=== PATIENT | male | born 1945 | race Caucasian/White ===

== ENCOUNTER 2016-11-19 19:09 | Inpatient (IN) | payer OTHER, MEDICARE ==
[~2016-11-19] VITALS: Ht 180.3 cm; Wt 79.9 kg
[~2016-11-19 19:09] MED LIST: CARV3.125 PO; ENOX80P SQ; FURO40TA PO; GLIP5TAB8 PO; HYDR10TA23 PO; OYST500T11 PO; PRAV40TA2 PO; WARF-18 PO
[2016-11-19 19:22] VITALS: PULSE 62; RESP 14; TEMP 98.6; O2SAT 99
[2016-11-19] MEDS ORDERED: LOSA25TA PO (19:22)
[2016-11-19] MEDS ORDERED: WARF-23 PO (19:22)
[2016-11-19] MEDS ORDERED: HYDR-3799 PO (19:22)
[2016-11-19 19:24] VITALS: BP 140/59; PULSE 73; RESP 14; TEMP 98.6; O2SAT 98
[2016-11-19] MEDS ORDERED: SODIUM CHLOR 0.9% 1000 ML INJ 1,000 ML IV SCH (19:34)
[2016-11-19] MEDS ORDERED: SODIUM CHLORIDE 0.9% FLUSH 10 ML FLUSH IV FLUSH PRN ×2 (19:45→23:30)
--- NOTE | 2016-11-19 19:45 | PD ---
HPI Chief Complaint: Pain: Acute or Chronic Time Seen by Provider: 19:19 Travel History International Travel<30 days: No Contact w/Intl Traveler<30days: No Traveled to known affect area: No History of Present Illness HPI Patient is a 71-year-old male presents emergency Department with low back pain states it was most severe pain he ever felt fairly resolved now. Patient states pain was approximately an hour prior to arrival. Denies any fever denies any vomiting. Does endorse some nausea and states that anything he eats goes right through him. Is followed at the [place] for chronic bladder problem and has a chronic indwelling White which has been in for nearly 30 days and is scheduled to be changed 3 days from now. States the pain was sharp no radiation , states he has chronic leg weakness but nothing acute. Denies any anesthesia in his legs and his legs. He has slight pain to the bilateral flanks. PFSH Past Medical History Hx Anticoagulant Therapy: Yes (WARFRAIN ) AAA: Yes (REPAIRED) Arthritis: No Asthma: No Atrial Fibrillation: Yes Autoimmune Disease: No Blood Disorders: No Anxiety: Yes Heart Rhythm Problems: Yes (HX OF A-FIB) Cancer: No Cardiac Catheterization: Yes (2 CARDIAC STENTS, 2 AORTA) Cardiovascular Problems: Yes (cad, stents, htn) High Cholesterol: Yes Chest Pain: Yes Congestive Heart Failure: Yes COPD: Yes Cerebrovascular Accident: No Coronary Artery Disease: Yes Diabetes: Yes Patient Takes Glucophage: No Diminished Hearing: No Endocrine: Yes Gastrointestinal Disorders: Yes (BLADDER STONES) GERD: No Genitourinary: Yes Hiatal Hernia: Yes Hypertension: Yes Immune Disorder: No Implanted Vascular Access Dvce: Yes Insomnia: No Kidney Stones: Yes Musculoskeletal: Yes (CHRONIC BACK PAIN) Neurologic: Yes Psychiatric: Yes Reproductive: No Respiratory: Yes (copd) Immunizations Current: Yes Migraines: No Myocardial Infarction: Yes Pancreatitis: Yes Renal Failure: Yes Seizures: No Sleep Apnea: Yes Thyroid Disease: No Ulcer: No Past Surgical History Abdominal Aneurysm Repair: Yes Abdominal Surgery: Yes (UMBILICAL HERNIA REPAIR) Body Medical Devices: STENTS Cardiac Surgery: Yes (STENTS) Coronary Stent: Yes (X2) Genitourinary Surgery: Yes Neurologic Surgery: No Oral Surgery: Yes (CYST REMOVED FROM THROAT) Thoracic Surgery: Yes (AAA REPAIR) Tonsillectomy: Yes Other Surgery: Yes Social History Alcohol Use: No Tobacco Use: Yes (1 1/2PD) Substance Use: Yes (marijuana ) Allergies-Medications (Allergen,Severity, Reaction): Coded Allergies: No Known Allergies (Verified , 11/19/16) Reported Meds & Prescriptions Reported Meds & Active Scripts Active Coreg (Carvedilol) 3.125 Mg Tab 3.125 Mg PO BID Reported Losartan (Losartan Potassium) 25 Mg Tab 25 Mg PO DAILY Hydralazine HCl 25 Mg Tablet 10 Mg PO TID Warfarin 5 Mg Tab 5 Mg PO Sun Warfarin 2.5 Mg Tab 2.5 Mg PO DAILY Pravastatin 40 Mg Tab 40 Mg PO DAILY Furosemide 40 Mg Tab 40 Mg PO DAILY Review of Systems Except as stated in HPI: all other systems reviewed are Neg Physical Exam Narrative GENERAL: Well Developed well-nourished, unkempt, bearded in no distress. SKIN: Focused skin assessment warm/dry. HEAD: Atraumatic. Normocephalic. EYES: Pupils equal and round. No scleral icterus. No injection or drainage. ENT: No nasal bleeding or discharge. Mucous membranes pink and moist. NECK: Trachea midline. No JVD. CARDIOVASCULAR: Regular rate and rhythm. No murmur appreciated. RESPIRATORY: No accessory muscle use. Clear to auscultation. Breath sounds equal bilaterally. GASTROINTESTINAL: Abdomen soft, non-tender, nondistended. Hepatic and splenic margins not palpable. No CVA tenderness. MUSCULOSKELETAL: No obvious deformities. No clubbing. No cyanosis. No edema. No midline CT or L-spine tenderness. NEUROLOGICAL: Awake and alert. No obvious cranial nerve deficits. Motor grossly within normal limits. Normal speech. PSYCHIATRIC: Appropriate mood and affect; insight and judgment normal. Data Data Last Documented VS Vital Signs Date Time Temp Pulse Resp B/P Pulse Ox O2 Delivery O2 Flow Rate FiO2 11/19/16 23:17 68 14 166/62 99 Room Air 11/19/16 19:24 98.6 Orders Complete Blood Count With Diff (11/19/16 19:34) Comprehensive Metabolic Panel (11/19/16 19:34) Prothrombin Time / Inr (Pt) (11/19/16 19:34) Act Partial Throm Time (Ptt) (11/19/16 19:34) Urinalysis - C+S If Indicated (11/19/16 19:34) Iv Access Insert/Monitor (11/19/16 19:34) Ecg Monitoring (11/19/16 19:34) Oximetry (11/19/16 19:34) Sodium Chlor 0.9% 1000 Ml Inj (Ns 1000 M (11/19/16 19:34) Sodium Chloride 0.9% Flush (Ns Flush) (11/19/16 19:45) Electrocardiogram (11/19/16 19:34) Troponin I (11/19/16 19:34) Urinary Catheter Management CHARAN.Q8H (11/19/16 19:53) Remove Urinary Catheter .ONCE (11/19/16 19:53) Urine Culture (11/19/16 19:51) Ceftriaxone Inj (Rocephin Inj) (11/19/16 21:00) Chest, Single Ap (11/19/16 ) Phytonadione (Mephyton) (11/19/16 21:30) Ct Abd/Pel W/O Iv Contrast (11/19/16 ) Ct Thorax/ Chest Wo Iv Contras (11/19/16 ) Morphine Inj (Morphine Inj) (11/19/16 23:00) Admit Order (Ed Use Only) (11/19/16 ) Labs Laboratory Tests Test 11/19/16 11/19/16 19:30 19:51 White Blood Count 9.5 TH/MM3 Red Blood Count 3.28 MIL/MM3 Hemoglobin 9.2 GM/DL Hematocrit 28.8 % Mean Corpuscular Volume 87.7 FL Mean Corpuscular Hemoglobin 28.0 PG Mean Corpuscular Hemoglobin 31.9 % Concent Red Cell Distribution Width 19.8 % Platelet Count 289 TH/MM3 Mean Platelet Volume 10.6 FL Neutrophils (%) (Auto) 69.8 % Lymphocytes (%) (Auto) 21.2 % Monocytes (%) (Auto) 5.6 % Eosinophils (%) (Auto) 1.9 % Basophils (%) (Auto) 1.5 % Neutrophils # (Auto) 6.7 TH/MM3 Lymphocytes # (Auto) 2.0 TH/MM3 Monocytes # (Auto) 0.5 TH/MM3 Eosinophils # (Auto) 0.2 TH/MM3 Basophils # (Auto) 0.1 TH/MM3 CBC Comment DIFF FINAL Differential Comment Prothrombin Time 115.1 SEC Prothromb Time International 9.4 RATIO Ratio Activated Partial 58.4 SEC Thromboplast Time Sodium Level 140 MEQ/L Potassium Level 5.3 MEQ/L Chloride Level 117 MEQ/L Carbon Dioxide Level 14.9 MEQ/L Anion Gap 8 MEQ/L Blood Urea Nitrogen 33 MG/DL Creatinine 2.00 MG/DL Estimat Glomerular Filtration 33 ML/MIN Rate Random Glucose 169 MG/DL Calcium Level 5.6 MG/DL Protein Corrected Calcium 5.9 MG/DL Total Bilirubin 0.3 MG/DL Aspartate Amino Transf 116 U/L (AST/SGOT) Alanine Aminotransferase 87 U/L (ALT/SGPT) Alkaline Phosphatase 231 U/L Troponin I 0.21 NG/ML Total Protein 6.3 GM/DL Albumin 2.3 GM/DL Urine Color LIGHT-YELLOW Urine Turbidity HAZY Urine pH 5.5 Urine Specific [place] 1.010 Urine Protein 100 mg/dL Urine Glucose (UA) NEG mg/dL Urine Ketones NEG mg/dL Urine Occult Blood SMALL Urine Nitrite POS Urine Bilirubin NEG Urine Urobilinogen LESS THAN 2.0 MG/DL Urine Leukocyte Esterase LARGE Urine RBC 2 /hpf Urine WBC 35 /hpf Urine WBC Clumps RARE Urine Squamous Epithelial <1 /hpf Cells Urine Amorphous Sediment RARE Urine Bacteria MANY /hpf Microscopic Urinalysis Comment CULTURE INDICATED MDM Medical Decision Making Medical Screen Exam Complete: Yes Emergency Medical Condition: Yes Interpretation(s) EKG shows atrial fibrillation with an overall rate of 72, left axis deviation and normal R-wave progression. T-wave inversions in V4 V5 which are new from previous EKG. No concerning ST segment changes. This an abnormal EKG. Differential Diagnosis Urinary tract infection, comp. UTI, elevated INR, chest pain, ACS, AMI, aortic aneurysm. Narrative Course Patient 71-year-old male with pain in bilateral flanks radiating anterior to the epigastric region. Has a chronic indwelling White. Most likely cause of his symptoms or urinary tract infection and indeed the patient does have UTI with nitrate positive urine. The White catheter was exchanged. Patient has multiple electrolyte abnormalities and a minimal elevation of creatinine from his baseline. Patient does have a history of aortic stenting from the arch to the bifurcation. With his INR of 9 he was given a dose of vitamin K orally and noncontrast CT scan was performed to rule out hematoma of aortic origin. Think the likelihood of this is fairly low but certainly needs exclusion. Given the low likelihood IV contrast was held. Patient's EKG is unchanged from previous. His troponin is elevated to 0.3. I discussed with case with patient and Dr. Valdes recommended for admission to the hospital for workup of his elevated troponin, elevated INR and treatment of discomfort. UTI. The patient was given Rocephin and calcium in emergency department. Diagnosis Primary Impression: NSTEMI (non-ST elevated myocardial infarction) Additional Impressions: Elevated INR UTI (urinary tract infection) Admitting Information Admitting Physician Requests: Admit Condition: Stable Storm Uribe MD Nov 19, 2016 19:45
[2016-11-19 20:34] LABS: AUTOMATED NEUTROPHIL # 6.7 TH/MM3 (1.8-7.7); BASOPHIL # 0.1 TH/MM3 (0-0.2); BASOPHIL % 1.5 % (0.0-2.0); EOSINOPHIL # 0.2 TH/MM3 (0-0.4); EOSINOPHIL % 1.9 % (0.0-4.0); HEMATOCRIT 28.8 % (39.0-51.0); HEMO FLAGS DIFF FINAL; LYMPH % 21.2 % (9.0-44.0); MEAN CELL VOLUME 87.7 FL (80.0-100.0); MEAN CORPUSCULAR HGB CONC 31.9 % (32.0-36.0); MONO % 5.6 % (0.0-8.0); NEUT % 69.8 % (16.0-70.0); PLATELET COUNT 289 TH/MM3 (150-450); RED BLOOD COUNT 3.28 MIL/MM3 (4.50-5.90); RED CELL DISTRIBUTION WIDTH 19.8 % (11.6-17.2); WHITE BLOOD COUNT 9.5 TH/MM3 (4.0-11.0)
[2016-11-19 20:39] LABS: BACTERIA, URINE MANY /hpf; BLOOD, URINE SMALL (NEG); COMMENT (UR) CULTURE INDICATED; CULTURE IF INDICATED CULTURE INDICATED; GLUCOSE,URINE NEG (NEG); KETONE, URINE NEG (NEG); PH, URINE 5.5 (5.0-8.5); SQUAMOUS EPITHELIAL CELL URINE <1 /hpf (0-5); URINE COLOR LIGHT-YELLOW (YELLW/STRAW)
[2016-11-19 20:41] LABS: NITRITE,URINE POS (NEG)
[2016-11-19 20:45] LABS: APTT (PATIENT) 58.4 SEC (24.3-30.1); PROTHROMBIN TIME - PATIENT 115.1 SEC (9.8-11.6)
[2016-11-19] MEDS ORDERED: cefTRIAXone INJ 1,000 MG in SODIUM CHLORIDE 0.9% INJ 100 ML IV ONE (21:00)
[2016-11-19 21:02] LABS: BICARBONATE 14.9 MEQ/L (21.0-32.0); TOTAL BILIRUBIN ADULT 0.3 MG/DL (0.2-1.0)
[2016-11-19 21:04] LABS: POTASSIUM 5.3 MEQ/L (3.5-5.1)
[2016-11-19 21:10] VITALS: BP 158/60; PULSE 70; RESP 16; O2SAT 99
[2016-11-19 21:19] LABS: CALCIUM-PROTEIN CORRECTED 5.9 MG/DL (8.5-10.1)
[2016-11-19 21:22] LABS: INTERNATIONAL NORMALIZED RATIO 9.4 RATIO
[2016-11-19] MEDS ORDERED: PHYTONADIONE 5 MG TAB PO ONE (21:30)
[2016-11-19 22:00] VITALS: BP 170/62; PULSE 74; RESP 12; O2SAT 100
[2016-11-19] MEDS ORDERED: MORPHINE SULFATE 4 MG/ML INJ IV PUSH ONE (23:00)
--- NOTE | 2016-11-19 23:04 | RADRPT ---
EXAM DATE/TIME: 11/19/2016 22:06 [facility] COMPARISON: CHEST SINGLE AP, February 02, 2016, 14:09. INDICATIONS : Middle to low back pain. MEDICAL HISTORY : A-Fib SURGICAL HISTORY : Descending aorta graft stent ENCOUNTER: Initial ACUITY: 1 day PAIN SCORE: 0/10 LOCATION: Bilateral chest FINDINGS: Single AP view of the chest. Aortic stent in place. Lungs are clear. Cardiomediastinal silhouette wit hin normal limits. No evidence of pleural effusion or pneumothorax. CONCLUSION: No acute cardiopulmonary disease identified. Jorden Mckeon MD on November 19, 2016 at 23:03 Board Certified Radiologist. This report was verified electronically.
--- NOTE | 2016-11-19 23:11 | RADRPT ---
EXAM DATE/TIME: 11/19/2016 22:45 [facility] COMPARISON: CT ABDOMEN & PELVIS W/O CONTRAST, February 02, 2016, 16:20. INDICATIONS : Back pain; rule out intraabdominal hematoma. ORAL CONTRAST: No oral contrast ingested. RADIATION DOSE: 13.39 CTDIvol (mGy) ; Combined studies - Thorax/Abdomen/Pelvis MEDICAL HISTORY : Chronic obstructive pulmonary disease. Congestive heart failure. Renal failure, chronic.Hypertension, AAA SURGICAL HISTORY : Abdominal aortic aneurysm repair. Umbilical hernia repair. ENCOUNTER: Initial ACUITY: 1 day PAIN SCALE: 7/10 LOCATION: abdomen TECHNIQUE: Volumetric scanning of the abdomen and pelvis was performed. Using automated exposure control and ad justment of the mA and/or kV according to patient size, radiation dose was kept as low as reasonably achievable to obtain optimal diagnostic quality images. DICOM format image data is available electro nically for review and comparison. FINDINGS: LOWER LUNGS: The visualized lower lungs are clear. LIVER: Homogeneous density without lesion for noncontrast technique. There is no dilation of the biliary tr ee. No calcified gallstones. SPLEEN: Normal size without lesion. PANCREAS: Extensive pancreatic calcifications, stable from prior. KIDNEYS: Multiple bilateral varying size cysts measuring up to 4.1 cm similar to prior.. A hyperdense cyst up per pole left kidney measuring 1.7 cm similar to prior. ADRENAL GLANDS: Within normal limits. VASCULAR: Stent graft in abdominal aortic aneurysm and proximal iliac vessels, renal arteries, celiac, and SMA. This is incompletely evaluated on noncontrast study, but morphologically similar to prior. BOWEL/MESENTERY: No disproportionate loops of small or large bowel. Loops of small bowel measure up to 3.2 cm, simila r to prior. The appendix is identified anteriorly in the right lower quadrant and measures 8 mm. Th ere is some hyperdensity within the distal lumen, possible calcification. The hyperdense lumen is un changed from prior examination in January 2016. ABDOMINAL WALL: Multiple hemoclips about the umbilical hernia, stable in configuration. RETROPERITONEUM: There is no lymphadenopathy. No evidence of retroperitoneal fluid. BLADDER: White catheter in place. Stable 1.7 cm densely calcified stone within the posterior midline lumen, s table from prior. REPRODUCTIVE: The prostate is normal size. INGUINAL: There is no lymphadenopathy or hernia. MUSCULOSKELETAL: Diffuse osteopenia. CONCLUSION: 1. No evidence of intra-abdominal retroperitoneal fluid/hematoma. 2. Multiple findings, described above, stable from prior CT, in coating pancreatic calcification, bernice dder stone, renal cysts, hyperdense configuration to the appendix, and vascular stents. Blaze Marshall MD on November 19, 2016 at 22:59 Board Certified Radiologist. This report was verified electronically.
--- NOTE | 2016-11-19 23:16 | RADRPT ---
EXAM DATE/TIME: 11/19/2016 22:45 [facility] COMPARISON: CT PULMONARY ANGIOGRAM, July 30, 2013, 0:58. INDICATIONS : Back pain; rule out intrathoracic hematoma. RADIATION DOSE: 13.39 CTDIvol (mGy) ; Combined studies - Thorax/Abdomen/Pelvis MEDICAL HISTORY : Chronic obstructive pulmonary disease. Congestive heart failure. Renal failure, chronic. Hypertension , AAA SURGICAL HISTORY : Abdominal aortic aneurysm repair. Umbilical hernia repair. ENCOUNTER: Initial ACUITY: 1 day PAIN SCALE: 7/10 LOCATION: chest TECHNIQUE: Volumetric scanning of the chest was performed. Using automated exposure control and adjustment of t he mA and/or kV according to patient size, radiation dose was kept as low as reasonably achievable to obtain optimal diagnostic quality images. DICOM format image data is available electronically for r eview and comparison. Follow-up recommendations for detected pulmonary nodules are based at a minimum on nodule size and pa tient risk factors according to Fleischner Society Guidelines. FINDINGS: LUNGS: Moderate severity emphysema similar to prior examination in 2014. No nodular densities or infiltrate s. PLEURAE: There is no pleural thickening or pleural effusion. MEDIASTINUM: Heart is normal in size. Coronary artery calcifications. No evidence of mediastinal adenopathy. En dostent in the thoracic aorta; configuration is similar to prior and 2014. AXILLAE: Within normal limits. No lymphadenopathy. MUSCULOSKELETAL: Diffuse osteopenia. No fracture seen. MISCELLANEOUS: No evidence of intrathoracic hematoma. CONCLUSION: No acute findings in the chest. Emphysema and aortic endostent, similar to prior CT in 2014. Blaze Marshall MD on November 19, 2016 at 23:09 Board Certified Radiologist. This report was verified electronically.
[2016-11-19 23:17] VITALS: BP 166/62; PULSE 68; RESP 14; O2SAT 99
[2016-11-19] MEDS ORDERED: BISACODYL 10 MG SUPP RECTAL PRN (23:30)
[2016-11-19] MEDS ORDERED: CALCIUM GLUCONATE INJ 2 GM in DEXTROSE 5% IN WATER 100ML INJ 100 ML IV ONE ×2 (23:30)
[2016-11-19] MEDS ORDERED: MAGNESIUM HYDROXIDE SUSP 30 ML CUP PO PRN (23:30)
[2016-11-19] MEDS ORDERED: MORPHINE SULFATE 4 MG/ML INJ IV PRN (23:30)
[2016-11-19] MEDS ORDERED: SODIUM CHLOR 0.9% 1000 ML INJ 1,000 ML IV ONE (23:30)
[2016-11-19] MEDS ORDERED: NITROGLYCERIN 2% OINT 1 GM PACKET TOPICAL PRN (23:30)
[2016-11-19] MEDS ORDERED: LACTULOSE SYRUP 20 GM/30 ML CUP PO PRN (23:30)
[2016-11-19] MEDS ORDERED: SENNOSIDES 8.6 MG TAB PO PRN (23:30)
[2016-11-19] MEDS ORDERED: ONDANSETRON HCL 4 MG/2 ML VIAL IVP PRN (23:30)
[2016-11-19] MEDS ORDERED: ACETAMINOPHEN 325 MG TAB PO PRN (23:30)
--- NOTE | 2016-11-19 23:33 | HHI.HP ---
[facility] Admission Diagnosis Complicated UTI, Chest pain, Elevated INR Diagnoses: (1) NSTEMI (non-ST elevated myocardial infarction) Diagnosis: Principal (2) CHF (congestive heart failure) Diagnosis: Principal (3) UTI (urinary tract infection) Diagnosis: Principal (4) Supratherapeutic INR Diagnosis: Principal (5) Hypocalcemia Diagnosis: Principal (6) Hyperkalemia Diagnosis: Principal (7) HTN (hypertension) Diagnosis: Principal (8) DM (diabetes mellitus) Diagnosis: Principal (9) Tobacco abuse Diagnosis: Principal Travel History International Travel<30 Days: No Contact w/Intl Traveler <30 Da: No Traveled to Known Affected Are: No History of Present Illness This is a 71-year-old male with PMH of HTN, Hyperlipidemia, A. fib on Coumadin, Anxiety, COPD, Indwelling White, CHF (Echo 02/03/16 w/ EF 55-60%), AAA Repair, CKD and Chronic Back Pain who presented to the ER with complaints of bilateral flank pain with radiation to anterior abdomen starting earlier today. States pain is chronic however has become severe in the last 1 day. Reports associated nausea, but no vomiting, diarrhea or fever. On arrival, BP 140 or 59 , HR 73, O2 sat 98% on RA, Afebrile. CBC essentially at baseline. K+ 5.3. Creatinine 2.0, previously 1.63 and 02/10/16. Calcium 5.6. Troponin 0.21. INR 9.4. UA positive for UTI. CT Abd/Pelvis w/ no evidence of intra-abdominal retroperitoneal fluid or hematoma, previous vascular stents noted. S/p Ca, Vit K and Rocephin IV in ER. Review of Systems Except as stated in HPI: all other systems reviewed are Neg ROS: 14 point review of systems otherwise negative. Past Family Social History Past Medical History PMH: HTN, Hyperlipidemia, A. fib on Coumadin, Anxiety, COPD, Indwelling White, CHF (Echo 02/03/16 w/ EF 55-60%), AAA Repair, CKD and Chronic Back Pain Past Surgical History PAST SURGICAL HISTORY: Hernia Repair, Cardiac Stent, AAA Repair, Tonsillectomy Allergies: Coded Allergies: No Known Allergies (Verified , 11/19/16) Physical Exam Vital Signs Vital Signs Date Time Temp Pulse Resp B/P Pulse Ox O2 Delivery O2 Flow Rate FiO2 11/19/16 23:17 68 14 166/62 99 Room Air 11/19/16 22:00 74 12 170/62 100 Room Air 11/19/16 21:10 70 16 158/60 99 Room Air 11/19/16 19:24 98.6 73 14 140/59 98 Room Air 11/19/16 19:22 98.6 62 14 99 Physical Exam PE: GENERAL: Elderly white male in no acute distress. HEENT: PERRLA, EOMI. No scleral icterus or conjunctival pallor. No lid lag or facial droop. CARDIOVASCULAR: Regular rate and rhythm. No obvious murmurs to auscultation. No chest tenderness to palpation. RESPIRATORY: No obvious rhonchi or wheezing. Clear to auscultation. Breath sounds equal bilaterally. GASTROINTESTINAL: Abdomen soft, non-tender, nondistended. BS normal. MUSCULOSKELETAL: Extremities without clubbing, cyanosis, or edema. No obvious deformities. NEUROLOGICAL: Awake, alert and oriented x4. No focal neurologic deficits. Moving both upper and lower extremities spontaneously. Laboratory Laboratory Tests Test 11/19/16 11/19/16 19:30 19:51 White Blood Count 9.5 Red Blood Count 3.28 Hemoglobin 9.2 Hematocrit 28.8 Mean Corpuscular Volume 87.7 Mean Corpuscular Hemoglobin 28.0 Mean Corpuscular Hemoglobin 31.9 Concent Red Cell Distribution Width 19.8 Platelet Count 289 Mean Platelet Volume 10.6 Neutrophils (%) (Auto) 69.8 Lymphocytes (%) (Auto) 21.2 Monocytes (%) (Auto) 5.6 Eosinophils (%) (Auto) 1.9 Basophils (%) (Auto) 1.5 Neutrophils # (Auto) 6.7 Lymphocytes # (Auto) 2.0 Monocytes # (Auto) 0.5 Eosinophils # (Auto) 0.2 Basophils # (Auto) 0.1 CBC Comment DIFF FINAL Differential Comment Prothrombin Time 115.1 Prothromb Time International 9.4 Ratio Activated Partial 58.4 Thromboplast Time Sodium Level 140 Potassium Level 5.3 Chloride Level 117 Carbon Dioxide Level 14.9 Anion Gap 8 Blood Urea Nitrogen 33 Creatinine 2.00 Estimat Glomerular Filtration 33 Rate Random Glucose 169 Calcium Level 5.6 Protein Corrected Calcium 5.9 Total Bilirubin 0.3 Aspartate Amino Transf 116 (AST/SGOT) Alanine Aminotransferase 87 (ALT/SGPT) Alkaline Phosphatase 231 Troponin I 0.21 Total Protein 6.3 Albumin 2.3 Urine Color LIGHT-YELLOW Urine Turbidity HAZY Urine pH 5.5 Urine Specific [place] 1.010 Urine Protein 100 Urine Glucose (UA) NEG Urine Ketones NEG Urine Occult Blood SMALL Urine Nitrite POS Urine Bilirubin NEG Urine Urobilinogen LESS THAN 2.0 Urine Leukocyte Esterase LARGE Urine RBC 2 Urine WBC 35 Urine WBC Clumps RARE Urine Squamous Epithelial <1 Cells Urine Amorphous Sediment RARE Urine Bacteria MANY Microscopic Urinalysis Comment CULTURE INDICATED Date/Time Procedure Status Source Growth 11/19/16 19:51 Urine Culture Received Urine Random Urine Pending Result Diagram: 11/19/16192911/19/161929 Assessment and Plan Problem List: (1) NSTEMI (non-ST elevated myocardial infarction) ICD Code: I21.4 Status: Acute (2) CHF (congestive heart failure) ICD Code: I50.9 Status: Acute (3) Hyperkalemia ICD Code: E87.5 Status: Acute (4) Hypocalcemia ICD Code: E83.51 Status: Acute (5) Supratherapeutic INR ICD Code: R79.1 Status: Acute (6) UTI (urinary tract infection) ICD Code: N39.0 Status: Acute (7) HTN (hypertension) ICD Code: I10 Status: Chronic (8) DM (diabetes mellitus) ICD Code: E11.9 Status: Chronic (9) Tobacco abuse ICD Code: Z72.0 Status: Acute Assessment and Plan A/P: 1. NSTEMI: acute onset of flank pain, denies discrete chest pain, Trop 0.21, EKG w/ no acute ischemia. Currently pain free. Hold ASA in light of supratherapeutic INR, resume home Statin/B-yobani. Check serial cardiac enzymes, consult Cardiology for further recommendations. NTG/Morphine prn. 2. CHF: Chronic. Diastolic. Echo 02/03/16 w/ EF 55-60%. CXR negative, CT Chest w/ no acute findings, images reviewed by me. No fluid overload. Hold Lasix for the moment in light of worsening renal function. Monitor I/O. 3. Hyperkalemia: K+ 5.3, no acute EKG changes. Repeat labs in am. 4. Hypocalcemia: Ca 5.6, Corrected 5.9, s/p replacement in ER, will recheck and replace as needed. 5. Supratherapeutic INR: on Coumadin for h/o A-fib, INR 9.4, no active bleeding noted, CT Chest/Abd/Pelvis negative for bleeding, images reviewed by me. S/p Vit K in ER, hold Coumadin, repeat INR in am. 6. UTI: U/a w/ UTI, s/p Rocephin in ER, will continue w/ IV Abx, caution w/ INR 7. HTN: BP 150-160's, will monitor, resume home medications. 8. DM: Sliding scale w/ Accu-Cheks. Not on home meds. Check Hgb A1c. Last A1c 9.4 on 01/08/11. 9. DVT Prophylaxis: Pharmacologic contraindication in light of elevated INR. 10. Social work for d/c planning as needed. 11. Case discussed w/ ER physician. Physician Certification 2 Midnight Certification Type: Admission for Inpatient Services Order for Inpatient Services The services are ordered in accordance with Medicare regulations or non- Medicare payer requirements, as applicable. In the case of services not specified as inpatient-only, they are appropriately provided as inpatient services in accordance with the 2-midnight benchmark. Estimated LOS (days): 2 days is the estimated time the patient will need to remain in the hospital, assuming treatment plan goals are met and no additional complications. Post-Hospital Plan: Not yet determined Angela Maravilla MD Nov 19, 2016 23:33
[2016-11-20] VITALS (24 sets, daily range): BP systolic 105–131; BP diastolic 47–69; PULSE 50–76; RESP 16–18; TEMP 96.3–98.3; O2SAT 95–99
[2016-11-20] MEDS: ACETAMINOPHEN/HYDROcodone 325 MG/5 MG TAB PO PRN ×3 (03:29→20:59)
[2016-11-20 04:13] LABS: AUTOMATED NEUTROPHIL # 6.1 TH/MM3 (1.8-7.7); BASOPHIL # 0.1 TH/MM3 (0-0.2); BASOPHIL % 1.2 % (0.0-2.0); EOSINOPHIL # 0.1 TH/MM3 (0-0.4); EOSINOPHIL % 1.6 % (0.0-4.0); HEMATOCRIT 25.5 % (39.0-51.0); HEMO FLAGS DIFF FINAL; LYMPH % 23.1 % (9.0-44.0); LYMPHOCYTE # 2.1 TH/MM3 (1.0-4.8); MEAN CELL VOLUME 87.5 FL (80.0-100.0); MONO % 5.8 % (0.0-8.0); NEUT % 68.3 % (16.0-70.0); PLATELET COUNT 196 TH/MM3 (150-450); RED BLOOD COUNT 2.91 MIL/MM3 (4.50-5.90)
[2016-11-20 04:41] LABS: PROTHROMBIN TIME - PATIENT 82.9 SEC (9.8-11.6)
[2016-11-20 04:43] LABS: INTERNATIONAL NORMALIZED RATIO 6.9 RATIO
[2016-11-20 04:48] LABS: TOTAL BILIRUBIN ADULT 0.2 MG/DL (0.2-1.0)
[2016-11-20 04:53] LABS: CALCIUM-PROTEIN CORRECTED 6.5 MG/DL (8.5-10.1)
[2016-11-20 04:58] LABS: CALCIUM-PROTEIN CORRECTED 6.5 MG/DL (8.5-10.1)
[2016-11-20] MEDS ORDERED: PNEUMOCOCCAL POLYVALENT INJ 25 MCG/0.5 ML SYR IM ONE (09:00)
[2016-11-20] MEDS ORDERED: NS + KCL 20 MEQ INJ 1,000 ML IV SCH (09:15)
[2016-11-20] MEDS ORDERED: PHYTONADIONE 10 MG/ML VIAL SQ ONE (09:15)
--- NOTE | 2016-11-20 09:41 | HHI.PR ---
Subjective Remarks Follow up NSTEMI, electrolyte abnormalities. Patient denies chest pain, dyspnea. Cough productive of phlegm. Has had abdominal and back pain, but it resolved this morning. Objective Vitals Vital Signs Date Time Temp Pulse Resp B/P Pulse Ox O2 Delivery O2 Flow Rate FiO2 11/20/16 08:00 66 11/20/16 07:00 98.0 63 18 119/66 99 11/20/16 07:00 58 11/20/16 06:00 65 11/20/16 05:00 69 11/20/16 04:00 66 11/20/16 03:00 62 11/20/16 03:00 97.5 72 18 131/59 97 11/20/16 02:00 68 11/20/16 01:19 96.3 62 16 118/69 99 11/19/16 23:17 68 14 166/62 99 Room Air 11/19/16 22:00 74 12 170/62 100 Room Air 11/19/16 21:10 70 16 158/60 99 Room Air 11/19/16 19:24 98.6 73 14 140/59 98 Room Air 11/19/16 19:22 98.6 62 14 99 I/O 11/19/16 11/19/16 11/19/16 11/20/16 11/20/16 11/20/16 06:59 14:59 22:59 06:59 14:59 22:59 Intake Total 240 ml Output Total 790 ml Balance -550 ml Intake Oral 240 ml Output Urine Total 790 ml Result Diagram: 11/20/16 0346 11/20/16 0346 Imaging Last Impressions Chest X-Ray 11/19/16 0000 Signed Impressions: Service Date/Time: Saturday, November 19, 2016 22:06 - CONCLUSION: No acute cardiopulmonary disease identified. Jorden Mckeon MD Chest CT 11/19/16 0000 Signed Impressions: Service Date/Time: Saturday, November 19, 2016 22:45 - CONCLUSION: No acute findings in the chest. Emphysema and aortic endostent, similar to prior CT in 2014. Blaze Marshall MD Abdomen/Pelvis CT 11/19/16 0000 Signed Impressions: Service Date/Time: Saturday, November 19, 2016 22:45 - CONCLUSION: 1. No evidence of intra-abdominal retroperitoneal fluid/hematoma. 2. Multiple findings, described above, stable from prior CT, in coating pancreatic calcification, bladder stone, renal cysts, hyperdense configuration to the appendix, and vascular stents. Blaze Marshall MD Objective Remarks General: Elderly male in no acute distress. Heart: Regular rate and rhythm. No murmur. Lungs: Clear to auscultation bilaterally. No wheezes, rales, or rhonchi. Breathing is nonlabored. Abdomen: Soft, nontender, nondistended. Extremities: Trace bilateral lower extremity edema. Psych: Alert and oriented. Procedures None Urinary Catheter: Yes Assessment to: Continue White insert reason: Measure Accurate Output Vascular Central Line Catheter: No A/P Problem List: (1) NSTEMI (non-ST elevated myocardial infarction) ICD Code: I21.4 Status: Acute (2) CHF (congestive heart failure) ICD Code: I50.9 Status: Chronic (3) Hyperkalemia ICD Code: E87.5 Status: Resolved (4) Hypocalcemia ICD Code: E83.51 Status: Acute (5) Supratherapeutic INR ICD Code: R79.1 Status: Acute (6) UTI (urinary tract infection) ICD Code: N39.0 Status: Acute (7) HTN (hypertension) ICD Code: I10 Status: Chronic (8) DM (diabetes mellitus) ICD Code: E11.9 Status: Chronic (9) Tobacco abuse ICD Code: Z72.0 Status: Chronic Assessment and Plan 1. NSTEMI: Troponin mildly elevated. Cardiology consult is pending. Nitroglycerin, morphine as needed. Monitor on telemetry. 2. Chronic diastolic CHF: Caution with IV fluids. 3. Hypokalemia: Potassium was elevated on presentation to ER, but is now low. Supplement. 4. Hypocalcemia: Supplement calcium. 5. Supratherapeutic INR: Somewhat improved following administration of vitamin K in the ER. We'll give another dose of vitamin K and monitor INR. No apparent active bleeding at this time. 6. UTI: Continue antibiotics. 7. Hypertension: Continue medications. 8. Diabetes mellitus: Monitor Accu-Cheks and cover with sliding scale insulin. A1c pending. 9. Acute kidney injury superimposed on chronic kidney disease stage III: Consult nephrology. Gentle IV fluid hydration. Monitor labs. 10. DVT prophylaxis: INR is supratherapeutic. Coumadin is on hold. 11. Elevated LFTs: Check hepatitis panel. Problem Qualifiers (1) CHF (congestive heart failure): Ming Claire MD Nov 20, 2016 09:41
[2016-11-20] MEDS: PRAVASTATIN SOD 40 MG TAB PO SCH (09:55)
[2016-11-20] MEDS: hydrALAZINE HCL 10 MG TAB PO SCH ×3 (09:55→17:54)
[2016-11-20] MEDS: DOCUSATE SODIUM 50 MG/SENNA 8.6 MG TAB PO SCH ×2 (09:56→21:00)
[2016-11-20] MEDS: CARVEDILOL 3.125 MG TAB PO SCH ×2 (09:56→20:59)
[2016-11-20] MEDS: SODIUM CHLORIDE 0.9% FLUSH 10 ML FLUSH IV FLUSH SCH ×2 (09:58→21:00)
[2016-11-20] MEDS: CALCIUM/VITAMIN D 250 MG/125 U TAB PO SCH ×2 (10:07→20:59)
--- NOTE | 2016-11-20 11:18 | PD.CONS ---
[facility] Service Nephrology Consult Requested By Dr. Claire Reason for Consult ASUNCION on CKD Primary Care Physician [facility] History of Present Illness This is a 71 y/o male patient with extensive past medical history listed below that includes HTN, diet controlled DM II, A fib on Coumadin, COPD active smoking , hyperlipidemia, and chronic diastolic heart failyre. He came to ER for abdominal pain, flank pain, that radiates to front of abdomen. He described it as gas pains, resolved today. He has indwelling sands for the past 5 years that is changed every 30 days. He follows at [facility], states he has "an abnormality" that requires sands catheter. On arrival his creatinine was 2.0, improved to 1.85 today. His K was elevated at 5.3 but is 3.0 today. After discussion the patient denies use of NSAIDs, but reports frequent diarrhea on a daily basis that is upwards of 10 times per day. He is not in distress today. No edema is noted. He is also hypocalcemic today, and INR was 9.4 on arrival. He is anemic with Hb 8.2. He is a full code. We were consulted for renal management. ( Ebony Swenson) Review of Systems Constitutional: COMPLAINS OF: Fatigue, DENIES: Fever Cardiovascular: DENIES: Chest pain, Lower Extremity Edema Gastrointestinal: COMPLAINS OF: Abdominal pain, Diarrhea, DENIES: Black stools , Bloody stools, Nausea, Vomiting Genitourinary: DENIES: Hematuria Musculoskeletal: DENIES: Joint pain (Ebony Swenson) Past Family Social History Allergies: Coded Allergies: No Known Allergies (Verified , 11/19/16) Past Medical History CKD 3 per records, with creatinine ranging between 1.5-1.7, GFR in 40s DM II, diet controlled HTN Hyperlipidemia A. fib on Coumadin Anxiety COPD Indwelling Sands for unknown reasons CHF (Echo 02/03/16 w/ EF 55-60%) Chronic Back Pain Past Surgical History AAA repair hernia repair, umbilical PCI with stent placement tonsillectomy Reported Medications Coreg (Carvedilol) 3.125 Mg Tab 3.125 Mg PO BID Losartan (Losartan Potassium) 25 Mg Tab 25 Mg PO DAILY Hydralazine HCl 25 Mg Tablet 10 Mg PO TID Warfarin 5 Mg Tab 5 Mg PO Sun Warfarin 2.5 Mg Tab 2.5 Mg PO DAILY Pravastatin 40 Mg Tab 40 Mg PO DAILY Furosemide 40 Mg Tab 40 Mg PO DAILY Active Ordered Medications Current Medications Medications (Trade) Dose Ordered Sig/Ana Route Start Time Stop Time Status Last Admin (NS Flush) 2 ml UNSCH PRN IV FLUSH 11/19/16 23:30 (NS Flush) 2 ml BID IV FLUSH 11/20/16 09:00 11/20/16 09:58 (Zofran Inj) 4 mg Q6H PRN IVP 11/19/16 23:30 (Tylenol) 650 mg Q6H PRN PO 11/19/16 23:30 ([place] 5-325 Mg) 1 tab Q4H PRN PO 11/19/16 23:30 11/20/16 03:29 (Morphine Inj) 2 mg Q3H PRN IV 11/19/16 23:30 11/20/16 00:14 (Valerie-Colace) 1 tab BID PO 11/20/16 09:00 11/20/16 09:56 (Milk Of Magnesia Liq) 30 ml Q12H PRN PO 11/19/16 23:30 (Senokot) 17.2 mg Q12H PRN PO 11/19/16 23:30 (Dulcolax Supp) 10 mg DAILY PRN RECTAL 11/19/16 23:30 Lactulose 30 ml 30 ml DAILY PRN PO 11/19/16 23:30 (Rocephin Inj/NS Inj) 100 ml @ 200 mls/hr Q24H IV 11/20/16 21:00 (Nitroglycerin 2% Oint) 0.5 inch Q6HR PRN TOPICAL 11/19/16 23:30 (Coreg) 3.125 mg BID PO 11/20/16 09:00 11/20/16 09:56 (Apresoline) 10 mg TID PO 11/20/16 09:00 11/20/16 09:55 Pravastatin Sodium 40 mg 40 mg DAILY PO 11/20/16 09:00 11/20/16 09:55 (NS + KCl 20 Meq Inj) 1,000 ml @ 42 mls/hr [id number] IV 11/20/16 09:15 11/20/16 09:56 (Oscal-D 250-125) 250 mg Q12HR PO 11/20/16 09:15 11/20/16 10:07 Family History no hx of renal disorders Social History smokes 1/5 PPD x 50 years Former occasional ETOH [facility] uses walker to ambulate retired from [employer] full code (Ebony Swenson) Physical Exam Vital Signs Vital Signs Date Time Temp Pulse Resp B/P Pulse Ox O2 Delivery O2 Flow Rate FiO2 11/20/16 08:00 66 11/20/16 07:00 98.0 63 18 119/66 99 11/20/16 07:00 58 11/20/16 06:00 65 11/20/16 05:00 69 11/20/16 04:00 66 11/20/16 03:00 62 11/20/16 03:00 97.5 72 18 131/59 97 11/20/16 02:00 68 11/20/16 01:19 96.3 62 16 118/69 99 11/19/16 23:17 68 14 166/62 99 Room Air 11/19/16 22:00 74 12 170/62 100 Room Air 11/19/16 21:10 70 16 158/60 99 Room Air 11/19/16 19:24 98.6 73 14 140/59 98 Room Air 11/19/16 19:22 98.6 62 14 99 Physical Exam Discheveled Elderly male awake, oriented x 3, no neuro deficits, CN II-XII intact S1/S2, irreg irreg, no murmurs Lungs: clear in all garcia Abd: round, umbilical hernia mesh is abnormal in appearance; non tender Ext: no edema No JVD Laboratory Laboratory Tests Test 11/19/16 11/19/16 11/20/16 19:30 19:51 03:46 White Blood Count 9.5 9.0 Red Blood Count 3.28 2.91 Hemoglobin 9.2 8.2 Hematocrit 28.8 25.5 Mean Corpuscular Volume 87.7 87.5 Mean Corpuscular Hemoglobin 28.0 28.0 Mean Corpuscular Hemoglobin 31.9 32.0 Concent Red Cell Distribution Width 19.8 19.0 Platelet Count 289 196 Mean Platelet Volume 10.6 10.2 Neutrophils (%) (Auto) 69.8 68.3 Lymphocytes (%) (Auto) 21.2 23.1 Monocytes (%) (Auto) 5.6 5.8 Eosinophils (%) (Auto) 1.9 1.6 Basophils (%) (Auto) 1.5 1.2 Neutrophils # (Auto) 6.7 6.1 Lymphocytes # (Auto) 2.0 2.1 Monocytes # (Auto) 0.5 0.5 Eosinophils # (Auto) 0.2 0.1 Basophils # (Auto) 0.1 0.1 CBC Comment DIFF FINAL DIFF FINAL Differential Comment Prothrombin Time 115.1 82.9 Prothromb Time International 9.4 6.9 Ratio Activated Partial 58.4 Thromboplast Time Sodium Level 140 146 Potassium Level 5.3 3.0 Chloride Level 117 122 Carbon Dioxide Level 14.9 15.0 Anion Gap 8 9 Blood Urea Nitrogen 33 32 Creatinine 2.00 1.85 Estimat Glomerular Filtration 33 36 Rate Random Glucose 169 99 Calcium Level 5.6 5.7 Protein Corrected Calcium 5.9 6.5 Total Bilirubin 0.3 0.2 Aspartate Amino Transf 116 138 (AST/SGOT) Alanine Aminotransferase 87 86 (ALT/SGPT) Alkaline Phosphatase 231 253 Troponin I 0.21 0.21 Total Protein 6.3 5.3 Albumin 2.3 2.0 Urine Color LIGHT-YELLOW Urine Turbidity HAZY Urine pH 5.5 Urine Specific [place] 1.010 Urine Protein 100 Urine Glucose (UA) NEG Urine Ketones NEG Urine Occult Blood SMALL Urine Nitrite POS Urine Bilirubin NEG Urine Urobilinogen LESS THAN 2.0 Urine Leukocyte Esterase LARGE Urine RBC 2 Urine WBC 35 Urine WBC Clumps RARE Urine Squamous Epithelial <1 Cells Urine Amorphous Sediment RARE Urine Bacteria MANY Microscopic Urinalysis Comment CULTURE INDICATED Date/Time Procedure Status Source Growth 11/19/16 19:51 Urine Culture Received Urine Random Urine Pending (Ebony Swenson) Result Diagram: 11/20/16 0346 11/20/16 0346 Imaging Last 72 hours Impressions Chest X-Ray 11/19/16 0000 Signed Impressions: Service Date/Time: Saturday, November 19, 2016 22:06 - CONCLUSION: No acute cardiopulmonary disease identified. Jorden Mckeon MD Chest CT 11/19/16 0000 Signed Impressions: Service Date/Time: Saturday, November 19, 2016 22:45 - CONCLUSION: No acute findings in the chest. Emphysema and aortic endostent, similar to prior CT in 2014. Blaze Marshall MD Abdomen/Pelvis CT 11/19/16 0000 Signed Impressions: Service Date/Time: Saturday, November 19, 2016 22:45 - CONCLUSION: 1. No evidence of intra-abdominal retroperitoneal fluid/hematoma. 2. Multiple findings, described above, stable from prior CT, in coating pancreatic calcification, bladder stone, renal cysts, hyperdense configuration to the appendix, and vascular stents. Blaze Marshall MD (Ebony Swenson) Assessment and Plan Problem List: (1) ASUNCION (acute kidney injury) Plan: In a patient with underlying CKD 3 baseline appears to be creatinine raging 1.5-1.7 from 2016, GFR near 40 suspected prerenal azotemia may be due to dehydration he also has metabolic acidosis likely from GI losses from diarrhea renal function is improving with IVF change fluids to 1/4 NS with 75 mEq bicarbonate follow renal function daily he has chronic sands, is non oliguric placed on Rocephin for UTI quantify proteinuria avoid nephrotoxins daily renal panel (2) Supratherapeutic INR Plan: Hold Coumadin, follow INR he was given vitamin K (3) HTN (hypertension) Plan: blood pressure is acceptable continue ordered medications avoid CRISTI (4) Hypocalcemia Plan: replacement ordered check Vitamin D and PTH levels (5) Diarrhea Plan: he reports 15 episodes per day may need evaluation as to the etiology , possible GI consult (6) Anemia Plan: check iron profile (7) T2DM (type 2 diabetes mellitus) Plan: Check A1c, he is diet controlled (Ebony Swenson) Assessment and Plan patient was seen and examined. Agree with above assessment and plan. Hypocalcemia workup. Appears malnourished. Continue bicarbonate drip. Avoid nephrotoxins. Has underlying CKD stage III. (Jd Mathur MD) Ebony Swenson Nov 20, 2016 11:17 Jd Mathur MD Nov 21, 2016 11:47
--- NOTE | 2016-11-20 13:29 | PD.CONS ---
HPI Consult Requested By Primary Care Physician [facility] History of Present Illness 71 y/o male with past medical history significant for CAD s/p PCI to LCx in 2013 , HTN, DM, A fib on Coumadin, COPD active smoking, hyperlipidemia, indwelling White catheter admitted with abdominal pain, flank pain, that radiates to front of abdomen. On admission he was found to have a UTI, acute of chronic renal failure, severe hypocalcemia, hyperkalemia, anemia, elevated LFT's, supra- therapeutic INR and minimally elevated troponin. He denies chest pain, SOB, palpitations, syncope, PND or dyspnea. Cardiology consulted for elevated troponin. Review of Systems Consitutional: COMPLAINS OF: Chills, DENIES: Fatigue, Fever, Weight gain, Weight loss Eyes: DENIES: Amaurosis Fugax, Change in vision HEENT: DENIES: Lightheadedness, Change in hearing Respiratory: DENIES: See HPI, Cough, Snoring, Shortness of breath, Wheezing, Sputum production Cardiovascular: DENIES: See HPI, Chest pain, Palpitations, Syncope, Tachycardia Gastrointestinal: DENIES: Nausea, Vomiting, Change in bowel habits, Reflux, Bloody stools, Melena Genitourinary: DENIES: Urinary incontinence, Difficulty voiding Integumentary: DENIES: Rash Neurologic: DENIES: Tingling or numbness, Memory problems, Poor Balance, Stroke symptoms Musculoskeletal: DENIES: Joint pain, Muscle pain, Limited range of motion, Back pain Psychiatric: DENIES: Anxiety, Depression, Sleep disturbances Hematologic: DENIES: Bruising tendencies, Bleeding tendencies Endocrine: DENIES: Weight gain, Weight loss, Thyroid disease Past Family Social History Allergies: Coded Allergies: No Known Allergies (Verified , 11/19/16) Past Medical History CKD 3 per records, with creatinine ranging between 1.5-1.7, GFR in 40s DM II, diet controlled HTN Hyperlipidemia A. fib on Coumadin Anxiety COPD Indwelling White for unknown reasons CHF (Echo 02/03/16 w/ EF 55-60%) Chronic Back Pain Past Surgical History AAA repair hernia repair, umbilical PCI with stent placement tonsillectomy Reported Medications Reported Meds & Active Scripts Active Coreg (Carvedilol) 3.125 Mg Tab 3.125 Mg PO BID Reported Losartan (Losartan Potassium) 25 Mg Tab 25 Mg PO DAILY Hydralazine HCl 25 Mg Tablet 10 Mg PO TID Warfarin 5 Mg Tab 5 Mg PO Sun Warfarin 2.5 Mg Tab 2.5 Mg PO DAILY Pravastatin 40 Mg Tab 40 Mg PO DAILY Furosemide 40 Mg Tab 40 Mg PO DAILY Active Ordered Medications Current Medications Medications (Trade) Dose Ordered Sig/Ana Route Start Time Stop Time Status Last Admin (NS Flush) 2 ml UNSCH PRN IV FLUSH 11/19/16 23:30 (NS Flush) 2 ml BID IV FLUSH 11/20/16 09:00 11/20/16 09:58 (Zofran Inj) 4 mg Q6H PRN IVP 11/19/16 23:30 (Tylenol) 650 mg Q6H PRN PO 11/19/16 23:30 ([place] 5-325 Mg) 1 tab Q4H PRN PO 11/19/16 23:30 11/20/16 12:39 (Morphine Inj) 2 mg Q3H PRN IV 11/19/16 23:30 11/20/16 00:14 (Valerie-Colace) 1 tab BID PO 11/20/16 09:00 11/20/16 09:56 (Milk Of Magnesia Liq) 30 ml Q12H PRN PO 11/19/16 23:30 (Senokot) 17.2 mg Q12H PRN PO 11/19/16 23:30 (Dulcolax Supp) 10 mg DAILY PRN RECTAL 11/19/16 23:30 Lactulose 30 ml 30 ml DAILY PRN PO 11/19/16 23:30 (Rocephin Inj/NS Inj) 100 ml @ 200 mls/hr Q24H IV 11/20/16 21:00 (Nitroglycerin 2% Oint) 0.5 inch Q6HR PRN TOPICAL 11/19/16 23:30 (Coreg) 3.125 mg BID PO 11/20/16 09:00 11/20/16 09:56 (Apresoline) 10 mg TID PO 11/20/16 09:00 11/20/16 09:55 (Pravachol) 40 mg DAILY PO 11/20/16 09:00 11/20/16 09:55 Calcium/Vitamin D 250 mg 250 mg Q12HR PO 11/20/16 09:15 11/20/16 10:07 (Sodium Chloride 23.4% Inj/Sodium Bicarbonate 8.4% Inj/Sterile Water For Inj) 1,084.625 ml @ 75 mls/hr [id number] IV 11/20/16 13:00 (KCl) 40 meq BID PO 11/20/16 12:00 11/21/16 09:00 Family History noncontributory Social History smoker no alcohol no illicit drug use Physical Exam Vital Signs Vital Signs Date Time Temp Pulse Resp B/P Pulse Ox O2 Delivery O2 Flow Rate FiO2 11/20/16 12:35 63 11/20/16 11:00 76 11/20/16 11:00 98.3 66 18 105/47 96 11/20/16 10:00 68 11/20/16 09:00 60 11/20/16 08:00 66 11/20/16 07:00 98.0 63 18 119/66 99 11/20/16 07:00 58 11/20/16 06:00 65 11/20/16 05:00 69 11/20/16 04:00 66 11/20/16 03:00 62 11/20/16 03:00 97.5 72 18 131/59 97 11/20/16 02:00 68 11/20/16 01:19 96.3 62 16 118/69 99 11/19/16 23:17 68 14 166/62 99 Room Air 11/19/16 22:00 74 12 170/62 100 Room Air 11/19/16 21:10 70 16 158/60 99 Room Air 11/19/16 19:24 98.6 73 14 140/59 98 Room Air 11/19/16 19:22 98.6 62 14 99 Physical Exam GENERAL: Well-nourished, well-developed patient. SKIN: Warm and dry. HEAD: Normocephalic. EYES: No scleral icterus. No injection or drainage. NECK: Supple, trachea midline. No JVD or lymphadenopathy. CARDIOVASCULAR: Regular rate and rhythm without murmurs, gallops, or rubs. RESPIRATORY: Breath sounds equal bilaterally. No accessory muscle use. GASTROINTESTINAL: Abdomen soft, non-tender, nondistended. EXTREMITIES: No cyanosis, or + edema. NEUROLOGICAL: Awake, alert, and oriented x 3. Non-focal. Laboratory Laboratory Tests Test 11/19/16 11/19/16 11/20/16 19:30 19:51 03:46 White Blood Count 9.5 9.0 Red Blood Count 3.28 2.91 Hemoglobin 9.2 8.2 Hematocrit 28.8 25.5 Mean Corpuscular Volume 87.7 87.5 Mean Corpuscular Hemoglobin 28.0 28.0 Mean Corpuscular Hemoglobin 31.9 32.0 Concent Red Cell Distribution Width 19.8 19.0 Platelet Count 289 196 Mean Platelet Volume 10.6 10.2 Neutrophils (%) (Auto) 69.8 68.3 Lymphocytes (%) (Auto) 21.2 23.1 Monocytes (%) (Auto) 5.6 5.8 Eosinophils (%) (Auto) 1.9 1.6 Basophils (%) (Auto) 1.5 1.2 Neutrophils # (Auto) 6.7 6.1 Lymphocytes # (Auto) 2.0 2.1 Monocytes # (Auto) 0.5 0.5 Eosinophils # (Auto) 0.2 0.1 Basophils # (Auto) 0.1 0.1 CBC Comment DIFF FINAL DIFF FINAL Differential Comment Prothrombin Time 115.1 82.9 Prothromb Time International 9.4 6.9 Ratio Activated Partial 58.4 Thromboplast Time Sodium Level 140 146 Potassium Level 5.3 3.0 Chloride Level 117 122 Carbon Dioxide Level 14.9 15.0 Anion Gap 8 9 Blood Urea Nitrogen 33 32 Creatinine 2.00 1.85 Estimat Glomerular Filtration 33 36 Rate Random Glucose 169 99 Calcium Level 5.6 5.7 Protein Corrected Calcium 5.9 6.5 Total Bilirubin 0.3 0.2 Aspartate Amino Transf 116 138 (AST/SGOT) Alanine Aminotransferase 87 86 (ALT/SGPT) Alkaline Phosphatase 231 253 Troponin I 0.21 0.21 Total Protein 6.3 5.3 Albumin 2.3 2.0 Urine Color LIGHT-YELLOW Urine Turbidity HAZY Urine pH 5.5 Urine Specific [place] 1.010 Urine Protein 100 Urine Glucose (UA) NEG Urine Ketones NEG Urine Occult Blood SMALL Urine Nitrite POS Urine Bilirubin NEG Urine Urobilinogen LESS THAN 2.0 Urine Leukocyte Esterase LARGE Urine RBC 2 Urine WBC 35 Urine WBC Clumps RARE Urine Squamous Epithelial <1 Cells Urine Amorphous Sediment RARE Urine Bacteria MANY Microscopic Urinalysis Comment CULTURE INDICATED Date/Time Procedure Status Source Growth 11/19/16 19:51 Urine Culture Received Urine Random Urine Pending Result Diagram: 11/20/1634511/20/16345 Imaging Last Impressions Chest X-Ray 11/19/16 0000 Signed Impressions: Service Date/Time: Saturday, November 19, 2016 22:06 - CONCLUSION: No acute cardiopulmonary disease identified. Jorden Mckeon MD Chest CT 11/19/16 0000 Signed Impressions: Service Date/Time: Saturday, November 19, 2016 22:45 - CONCLUSION: No acute findings in the chest. Emphysema and aortic endostent, similar to prior CT in 2013. Blaze Marshall MD Abdomen/Pelvis CT 11/19/16 0000 Signed Impressions: Service Date/Time: Saturday, November 19, 2016 22:45 - CONCLUSION: 1. No evidence of intra-abdominal retroperitoneal fluid/hematoma. 2. Multiple findings, described above, stable from prior CT, in coating pancreatic calcification, bladder stone, renal cysts, hyperdense configuration to the appendix, and vascular stents. Blaze Marshall MD Assessment and Plan Problem List: (1) CAD (coronary artery disease) Assessment and Plan: 71 y/o M with known CAD s/p PCI presenting with abdominal pain, radiating to the back, severe hypocalcemia, acute on chronic renal failure, UTI and anemia. He remains afebrile and hemodynamically stable. Last echo 2016 EF 60%. EKG afib with adequate ventricular response. He has no cardiovascular complaints, his mainly complaint is abdominal pain. Troponin minimally elevated in the setting of acute of chronic renal disease. Nephrology following. Presentation for ACS very atypical. Per daughter he has been suffering with chronic diarrhea, weight loss, weakness for months. Given infection, elevated INR and severe anemia he is not a candidate for invasive risk stratification at this time. Recommendation: 1. Aggressive medical management for CAD 2. Hold OAC. Goal INR 2-3 for Afib 3. Continue rate control for Afib 4. Consider GI consult 5. Consider Urology consult 6. Toxicology screen 7. TSH, T3, T4, 8. 2Dechocardiogram Thank for the opportunity to participate in the care of this patient (2) Hyperlipidemia (3) COPD (chronic obstructive pulmonary disease) (4) Elevated INR (5) Hypocalcemia (6) UTI (urinary tract infection) (7) HTN (hypertension) (8) DM (diabetes mellitus) (9) Tobacco abuse (10) Anemia (11) Diarrhea (12) ASUNCION (acute kidney injury) Alexi Michelle MD Nov 20, 2016 13:29
[2016-11-20] MEDS: POTASSIUM CHLORIDE 20 MEQ CONTROLLED RELEASE TAB PO SCH ×2 (13:38→20:59)
[2016-11-20] MEDS: SODIUM CHLORIDE 23.4% INJ 38.5 MEQ, SODIUM BICARBONATE 8.4% INJ 75 MEQ in WATER STERILE... IV SCH (13:39)
--- NOTE | 2016-11-20 16:18 | EKG ---
Date Performed: 11/19/2016 Time Performed: 20:04:01 PTAGE: 71 years EKG: ATRIAL FIBRILLATION WITH ABERRANT CONDUCTION OR VENTRICULAR PREMATURE COMPLEXES INCOMPLETE RIGHT BUNDLE BRANCH BLOCK ST DEVIATION AND MODERATE T-WAVE ABNORMALITY, CONSIDER LATERAL ISCHEMIA ABN ORMAL ECG PREVIOUS TRACING : 02/10/2016 06.38 Compared to previous tracing, patient is now in atrial fibr illation. DOCTOR: Claudia Gonzalez Interpretating Date/Time 11/20/2016 16:17:34
--- NOTE | 2016-11-20 16:18 | EKG ---
Date Performed: 11/20/2016 Time Performed: 01:29:50 PTAGE: 71 years EKG: Probable atrial fibrillation Prolonged QT interval Ant/septal and lateral ST-T changes may be due to myocardial ischemia Abnormal ECG PREVIOUS TRACING : 11/19/2016 20.04 Compared to previous tracing, patient has converted from at rial fibrillation to Sinus rhythm with PACs. DOCTOR: Claudia Gonzalez Interpretating Date/Time 11/20/2016 16:27:01
--- NOTE | 2016-11-20 16:20 | EKG ---
Date Performed: 11/20/2016 Time Performed: 07:59:30 PTAGE: 71 years EKG: Sinus rhythm with PVC(s) with PAC(s) with borderline 1st degree A-V block. Prolonged QT interval Anterolateral ST -T changes may be due to myocardial ischemia Abnormal ECG PREVIOUS TRACING : 11/20/2016 01.29 Compared to previous tracing, patient is now in sinus rhyth m with PACs and PVCs. DOCTOR: Claudia Gonzalez Interpretating Date/Time 11/20/2016 16:19:19
[2016-11-20 17:05] LABS: HEMOGLOBIN A1b 2.7 %; HEMOGLOBIN LA1C 2.6 %; HEMOGLOBIN P3 6.4 %
[2016-11-20] MEDS: cefTRIAXone INJ 1,000 MG in SODIUM CHLORIDE 0.9% INJ 100 ML IV SCH (20:59)
[2016-11-20 21:41] LABS: HEMOGLOBIN A1a 0.9 %; HEMOGLOBIN A1b 2.7 %; HEMOGLOBIN Ao 80.2 %; HEMOGLOBIN LA1C 3.4 %; HEMOGLOBIN P3 6.4 %
[2016-11-21] VITALS (25 sets, daily range): BP systolic 105–131; BP diastolic 52–79; PULSE 18–78; RESP 16–18; TEMP 97.5–98.3; O2SAT 95–99
[2016-11-21] MEDS: SODIUM CHLORIDE 23.4% INJ 38.5 MEQ, SODIUM BICARBONATE 8.4% INJ 75 MEQ in WATER STERILE... IV SCH (03:28)
[2016-11-21 06:46] LABS: AUTOMATED NEUTROPHIL # 6.3 TH/MM3 (1.8-7.7); BASOPHIL # 0.1 TH/MM3 (0-0.2); BASOPHIL % 1.3 % (0.0-2.0); EOSINOPHIL # 0.1 TH/MM3 (0-0.4); EOSINOPHIL % 1.6 % (0.0-4.0); HEMATOCRIT 22.6 % (39.0-51.0); HEMO FLAGS DIFF FINAL; LYMPH % 17.8 % (9.0-44.0); LYMPHOCYTE # 1.6 TH/MM3 (1.0-4.8); MEAN CELL VOLUME 86.8 FL (80.0-100.0); MEAN CORPUSCULAR HEMOGLOBIN 28.4 PG (27.0-34.0); MEAN CORPUSCULAR HGB CONC 32.7 % (32.0-36.0); MONO % 8.1 % (0.0-8.0); NEUT % 71.2 % (16.0-70.0); PLATELET COUNT 147 TH/MM3 (150-450); RED BLOOD COUNT 2.61 MIL/MM3 (4.50-5.90); RED CELL DISTRIBUTION WIDTH 19.1 % (11.6-17.2); WHITE BLOOD COUNT 8.8 TH/MM3 (4.0-11.0)
[2016-11-21 06:54] LABS: INTERNATIONAL NORMALIZED RATIO 1.3 RATIO; PROTHROMBIN TIME - PATIENT 14.9 SEC (9.8-11.6)
[2016-11-21 07:36] LABS: ALT (GPT) 54 U/L (12-78); ANION GAP 8 MEQ/L (5-15); AST (GOT) 32 U/L (15-37); BICARBONATE 14.9 MEQ/L (21.0-32.0); BLOOD UREA NITROGEN 32 MG/DL (7-18); CHLORIDE 122 MEQ/L (98-107); GLOMERULAR FILTRATION RATE 36 ML/MIN (>89); MAGNESIUM 1.8 MG/DL (1.5-2.5); POTASSIUM 3.8 MEQ/L (3.5-5.1); SODIUM (NA) 145 MEQ/L (136-145); TRANSFERRIN IRON PROFILE 183 MG/DL (200-360)
[2016-11-21 07:38] LABS: ALKALINE PHOSPHATASE 234 U/L (45-117)
[2016-11-21 07:39] LABS: TOTAL BILIRUBIN ADULT 0.2 MG/DL (0.2-1.0)
[2016-11-21 07:46] LABS: CALCIUM-PROTEIN CORRECTED 6.6 MG/DL (8.5-10.1)
[2016-11-21] MEDS ORDERED: DEXTROSE 50% IN WATER 50 ML VIAL(D50) IV PRN (09:00)
[2016-11-21] MEDS ORDERED: GLUCAGON 1 MG/ML VIAL OTHER PRN (09:00)
--- NOTE | 2016-11-21 09:04 | HHI.PR ---
Subjective Remarks Follow up anemia, renal insufficiency, electrolyte abnormalities. The patient states "I feel better than when I came in here". Denies chest pain, dyspnea, abdominal pain. Has not had a bowel movement this morning. No reported bleeding. Objective Vitals Vital Signs Date Time Temp Pulse Resp B/P Pulse Ox O2 Delivery O2 Flow Rate FiO2 11/21/16 07:00 98.3 18 18 114/52 99 11/21/16 06:00 68 11/21/16 05:00 65 11/21/16 04:00 71 11/21/16 04:00 71 18 121/79 97 11/21/16 03:00 66 11/21/16 02:00 58 11/21/16 01:00 62 11/21/16 00:00 66 11/21/16 00:00 66 18 105/58 95 11/20/16 23:00 62 11/20/16 22:00 58 11/20/16 21:00 68 11/20/16 20:00 98.1 63 18 124/63 95 11/20/16 20:00 66 11/20/16 19:00 76 11/20/16 18:15 66 11/20/16 17:00 55 11/20/16 16:23 59 11/20/16 15:46 98.3 69 18 124/57 95 11/20/16 15:00 50 11/20/16 14:00 56 11/20/16 13:40 14 11/20/16 13:00 60 11/20/16 12:35 63 11/20/16 11:00 76 11/20/16 11:00 98.3 66 18 105/47 96 11/20/16 10:00 68 11/20/16 09:00 60 I/O 11/20/16 11/20/16 11/20/16 11/21/16 11/21/16 11/21/16 07:00 15:00 23:00 07:00 15:00 23:00 Intake Total 240 ml 900 ml 990 ml Output Total 790 ml 950 ml 750 ml Balance -550 ml -50 ml 240 ml Intake Oral 240 ml 450 ml 240 ml IV Total 450 ml 750 ml Output Urine Total 790 ml 950 ml 750 ml Result Diagram: 11/21/1661611/21/16616 Imaging Last Impressions Chest X-Ray 11/19/16 Signed Impressions: Service Date/Time: Saturday, November 19, 2016 22:06 - CONCLUSION: No acute cardiopulmonary disease identified. Jorden Mckeon MD Chest CT 11/19/16 0000 Signed Impressions: Service Date/Time: Saturday, November 19, 2016 22:45 - CONCLUSION: No acute findings in the chest. Emphysema and aortic endostent, similar to prior CT in 2013. Blaze Marshall MD Abdomen/Pelvis CT 11/19/16 0000 Signed Impressions: Service Date/Time: Saturday, November 19, 2016 22:45 - CONCLUSION: 1. No evidence of intra-abdominal retroperitoneal fluid/hematoma. 2. Multiple findings, described above, stable from prior CT, in coating pancreatic calcification, bladder stone, renal cysts, hyperdense configuration to the appendix, and vascular stents. Blaze Marshall MD Objective Remarks General: Elderly male in no acute distress. Heart: Regular rate and rhythm. No murmur. Lungs: Clear to auscultation bilaterally. No wheezes, rales, or rhonchi. Breathing is nonlabored. Abdomen: Soft, nontender, nondistended. Umbilical hernia. Extremities: Trace bilateral lower extremity edema. Psych: Alert and oriented. Procedures None Urinary Catheter: Yes Assessment to: Continue White insert reason: Measure Accurate Output Vascular Central Line Catheter: No A/P Problem List: (1) NSTEMI (non-ST elevated myocardial infarction) ICD Code: I21.4 Status: Acute (2) CHF (congestive heart failure) ICD Code: I50.9 Status: Chronic (3) Hyperkalemia ICD Code: E87.5 Status: Resolved (4) Hypocalcemia ICD Code: E83.51 Status: Acute (5) Supratherapeutic INR ICD Code: R79.1 Status: Acute (6) UTI (urinary tract infection) ICD Code: N39.0 Status: Acute (7) HTN (hypertension) ICD Code: I10 Status: Chronic (8) DM (diabetes mellitus) ICD Code: E11.9 Status: Chronic (9) Tobacco abuse ICD Code: Z72.0 Status: Chronic Assessment and Plan 1. NSTEMI: Troponin mildly elevated. Cardiology consult is pending. Nitroglycerin, morphine as needed. Monitor on telemetry. 2. Chronic diastolic CHF: Caution with IV fluids. 3. Hypokalemia: Potassium was elevated on presentation to ER, then decreased; now within normal limits. 4. Hypocalcemia: Still low. Supplement calcium. 5. Supratherapeutic INR: Resolved following vitamin K. INR now 1.3. Patient's hemoglobin is trending down, but no bleeding is apparent at this time. 6. UTI: Continue antibiotics. 7. Hypertension: Continue medications. 8. Diabetes mellitus: Monitor Accu-Cheks and cover with sliding scale insulin. A1c is 7.4. 9. Acute kidney injury superimposed on chronic kidney disease stage III: Appreciate nephrology recommendations. Gentle IV fluid hydration. Monitor labs. Creatinine has improved slightly. 10. DVT prophylaxis: Coumadin is on hold. ZHANE Cruz. 11. Elevated LFTs: Hepatitis panel pending. LFTs are now within normal limits. 12. Anemia: Uncertain etiology. Possibly dilutional + secondary to renal disease. Check stool hemoccult. GI consult. Problem Qualifiers (1) CHF (congestive heart failure): Ming Claire MD Nov 21, 2016 09:04
[2016-11-21] MEDS ORDERED: PNEUMOCOCCAL POLYVALENT INJ 25 MCG/0.5 ML SYR IM ONE (10:00)
[2016-11-21] MEDS: CARVEDILOL 3.125 MG TAB PO SCH ×2 (10:44→20:34)
[2016-11-21] MEDS: CHOLECALCIFEROL (VIT D3) 5000 UNIT CAP PO SCH (10:45)
[2016-11-21] MEDS: CALCIUM/VITAMIN D 250 MG/125 U TAB PO SCH ×2 (10:45→20:34)
[2016-11-21] MEDS: hydrALAZINE HCL 10 MG TAB PO SCH ×3 (10:45→16:50)
[2016-11-21] MEDS: DOCUSATE SODIUM 50 MG/SENNA 8.6 MG TAB PO SCH ×2 (10:45→20:10)
[2016-11-21] MEDS: POTASSIUM CHLORIDE 20 MEQ CONTROLLED RELEASE TAB PO SCH (10:45)
[2016-11-21] MEDS: PRAVASTATIN SOD 40 MG TAB PO SCH (10:45)
[2016-11-21] MEDS: SODIUM CHLORIDE 0.9% FLUSH 10 ML FLUSH IV FLUSH SCH ×2 (10:46→20:35)
[2016-11-21] MEDS: FERROUS SULFATE 325 MG (65 MG ELEMENTAL IRON) TAB PO SCH (10:49)
[2016-11-21] MEDS: CALCITRIOL 0.25 MCG CAP PO SCH (10:50)
[2016-11-21] MEDS: INSULIN ASPART SUPPLEMENTAL SCALE SQ SCH ×3 (11:00→21:00)
--- NOTE | 2016-11-21 11:02 | HHI.NPPN ---
Subjective Renal Failure: Chronic, Acute Interval History Renal function is stable. No acute overnight events. He is non oliguric. ( Ebony Swenson) Review of Systems General Constitutional: Fatigue (Ebony Swenson) Objective Data Data 11/20/16 11/21/16 18:59 06:59 Intake Total 900 ml 990 ml Output Total 950 ml 750 ml Balance -50 ml 240 ml Intake Oral 450 ml 240 ml IV Total 450 ml 750 ml Output Urine Total 950 ml 750 ml Vital Signs Date Time Temp Pulse Resp B/P Pulse Ox O2 Delivery O2 Flow Rate FiO2 11/21/16 09:13 63 11/21/16 08:00 72 11/21/16 07:00 66 11/21/16 07:00 98.3 18 18 114/52 99 11/21/16 06:00 68 11/21/16 05:00 65 11/21/16 04:00 71 11/21/16 04:00 71 18 121/79 97 11/21/16 03:00 66 11/21/16 02:00 58 11/21/16 01:00 62 11/21/16 00:00 66 11/21/16 00:00 66 18 105/58 95 11/20/16 23:00 62 11/20/16 22:00 58 11/20/16 21:00 68 11/20/16 20:00 98.1 63 18 124/63 95 11/20/16 20:00 66 11/20/16 19:00 76 11/20/16 18:15 66 11/20/16 17:00 55 11/20/16 16:23 59 11/20/16 15:46 98.3 69 18 124/57 95 11/20/16 15:00 50 11/20/16 14:00 56 11/20/16 13:40 14 11/20/16 13:00 60 11/20/16 12:35 63 11/20/16 11:00 76 11/20/16 11:00 98.3 66 18 105/47 96 (Ebony Swenson) -: 11/21/16 0617 11/21/16 0617 Imaging Last 72 hours Impressions Chest X-Ray 11/19/16 0000 Signed Impressions: Service Date/Time: Saturday, November 19, 2016 22:06 - CONCLUSION: No acute cardiopulmonary disease identified. Jorden Mckeon MD Chest CT 11/19/16 0000 Signed Impressions: Service Date/Time: Saturday, November 19, 2016 22:45 - CONCLUSION: No acute findings in the chest. Emphysema and aortic endostent, similar to prior CT in 2013. Blaze Marshall MD Abdomen/Pelvis CT 11/19/16 0000 Signed Impressions: Service Date/Time: Saturday, November 19, 2016 22:45 - CONCLUSION: 1. No evidence of intra-abdominal retroperitoneal fluid/hematoma. 2. Multiple findings, described above, stable from prior CT, in coating pancreatic calcification, bladder stone, renal cysts, hyperdense configuration to the appendix, and vascular stents. Blaze Marshall MD Tubes & Lines: Sands Drip Comment bicarb gtt, 100 mEq in 1/4 NS @ 75 cc/hr (Ebony Swenson) Physical Exam General Appearance: No Acute Distress, Comfortable, Malnourished (Ebony Swenson) Eyes Eye Exam: Pupils Equal (Ebony SwensonP) Throat Throat Remarks poor dentition (Ebony Swenson) Neck Neck Exam: Neck Supple, Trachea Midline (Ebony Swenson) Pulmonary Resp Exam: Breath Sounds Equal, No Distress, Rhonchi Resp Remarks wheezing, expiratory (Ebony Swenson BCristi MCDONALDP) Cardiology CV Exam: Good Perfusion, Irregular (Ebony Swenson) Gastrointestinal/Abdomen GI Exam: Soft, Non-Tender, Bowel Sounds Present GI Remarks round, umbilical hernia is present (Ebony Swenson) Genitourinary Exam: Clear Urine (Ebony SwensonP) Musculoskeletal MS Exam: Joints Intact, Normal Tone (Ebony Swenson) Integumentary Skin Exam: Warm, Dry (Ebony Swenson) Extremeties Extremities Exam: No Edema, Pedal Pulses Palpable (Ebony Swenson) Neurologic Neuro Exam: Alert, Awake, Oriented, Speech Clear, Moving All Extremities ( Ebony Swenson) Psychiatric Psych Exam: Appropriate Responses (Ebony Swenson) VTE Prophylaxis Meds: Coumadin (Ebony Swenson) Assessment/Plan Discussed Condition With: Patient Assessment Summary: ASUNCION/Acute Renal Failure, Anemia of CKD, Proteinuria, Vitamin D Defeciency, Hypertension, Diabetes Mellitus, CKD Stage III Electrolyte Assessment: Hypocalcemia, Metabolic Acidosis Problem List: (1) ASUNCION (acute kidney injury) Plan: In a patient with underlying CKD 3 baseline appears to be creatinine raging 1.5-1.7 from 2016, GFR near 40 renal function has stabilized, this may be his new baseline he has over 2 grams proteinuria, may have underlying diabetic nephropathy; consider CRISTI or ARB in upcoming days ASUNCION: prerenal azotemia suspected from dehydration, with metabolic acidosis likely from GI losses from diarrhea continue bicarb drip @ 75 ml/hr follow renal function daily he has chronic sands and is non oliguric; I offered urology evaluation to assess need for shelter sands catheter, he refused he is on Rocephin for UTI avoid nephrotoxins daily renal panel (2) Supratherapeutic INR Plan: INR corrected defer to medical team restarting Coumadin (3) Hypocalcemia Plan: due to severe Vitamin D deficiency oral vitamin D and calcitriol ordered his PTH is appropriately elevated continue oral calcium replacement, follow labs (4) HTN (hypertension) Plan: blood pressure is acceptable continue ordered medications avoid CRISTI at this time (5) Diarrhea Plan: he reports 15 episodes per day consider GI consult (6) Anemia Plan: probable anemia of chronic disease also slight iron deficiency, start oral iron therapy Hb is lower today, (7) T2DM (type 2 diabetes mellitus) Plan: A1c is 7.4, he is not on medications at home (Ebony Swenson) Problem List: (1) ASUNCION (acute kidney injury) Plan: In a patient with underlying CKD 3 baseline appears to be creatinine raging 1.5-1.7 from 2016, GFR near 40 renal function has stabilized, this may be his new baseline he has over 2 grams proteinuria, may have underlying diabetic nephropathy; consider CRISTI or ARB in upcoming days ASUNCION: prerenal azotemia suspected from dehydration, with metabolic acidosis likely from GI losses from diarrhea continue bicarb drip @ 75 ml/hr follow renal function daily he has chronic sands and is non oliguric; I offered urology evaluation to assess 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, he refused he is on Rocephin for UTI avoid nephrotoxins daily renal panel (2) Supratherapeutic INR Plan: INR corrected defer to medical team restarting Coumadin (3) Hypocalcemia Plan: due to severe Vitamin D deficiency oral vitamin D and calcitriol ordered his PTH is appropriately elevated continue oral calcium replacement, follow labs (4) HTN (hypertension) Plan: blood pressure is acceptable continue ordered medications avoid CRISTI at this time (5) Diarrhea Plan: he reports 15 episodes per day consider GI consult (6) Anemia Plan: probable anemia of chronic disease also slight iron deficiency, start oral iron therapy Hb is lower today, (7) T2DM (type 2 diabetes mellitus) Plan: A1c is 7.4, he is not on medications at home Plan patient was seen and examined. Agree with above assessment and plan. Obtain phosphorus level. Start oral Vitamin D. (Jd Mathur MD) Ebony Swenson Nov 21, 2016 11:02 Jd Mathur MD Nov 21, 2016 17:28
[2016-11-21 12:34] LABS: HEMATOCRIT 24.3 % (39.0-51.0); REVIEW FLAG FINAL
--- NOTE | 2016-11-21 14:17 | PD.CONS ---
HPI History of Present Illness This is a 71 year old male with a history of chronic diarrhea, chronic pancreatitis, gastritis, duodenitis, and duodenal AVM, who presented to the ER for evaluation of back pain and was admitted for NSTEMI, CHF, ASUNCION with electrolyte abnormalities, and UTI. GI has been consulted for anemia and diarrhea. The patient reports that he has been having significant diarrhea for many months. We evaluated him back in January/February of 2016 for chronic diarrhea, weight loss, and anemia. He was evaluated with EGD and incomplete colonoscopy in the sigmoid secondary to poor prep (02/07/16)---> gastritis, duodenitis, duodenal AVMs, incomplete colonoscopy. Pathology revealed duodenal mucosa with tubular adenoma, gastric body mucosa with focal mild chronic inflammation of the lamina propria. Acute inflammation is not identified. A jer stain is negative for helicobacter. He then had another incomplete colonoscopy )02/08/17)---> incomplete colonoscopy to the transverse colon due to poor prep, colon polyps (6) with snare polypectomy. Pathology revealed adenomatous polyps, fragments. It was recommended that he have a repeat colonoscopy in 1-2 months with a 2 day prep. He does not believe that he has had this done, but I am unable to access our outpatient records at this time. Celiac panel was unremarkable. He reports that he has 10 liquid bowel movements during the night and about another 10 during the day. He denies any black tarry stools or any visible blood in his stool. His appetite has been the same and he reports that he is not eating any differently, but that he has lost more than 200 lbs over the past 2 years. He denies any heartburn, reflux, difficulty swallowing, abdominal pain, melena, or hematochezia. He did have some mild nausea without vomiting on arrival to ER but states this has resolved. He does note that he is having progressive worsening generalized weakness that he feels is related to his diarrhea. He has been evaluated by cardiology and they do not feel that he is a candidate for invasive risk stratification at this time given his elevated INR, infection, and severe anemia. Abdomen/Pelvis CT (11/19/16)----> 1. No evidence of intra-abdominal retroperitoneal fluid/hematoma. 2.Multiple findings, described above, stable from prior CT, in coating pancreatic calcification, bladder stone, renal cysts, hyperdense configuration to the appendix, and vascular stents (Jazz Mejia) PFSH Past Medical History CAD, S/P PCI, stent Hyperlipidemia A. fib on Coumadin Anxiety COPD CHF AAA Repair CKD Chronic Back Pain DM Chronic pancreatitis Chronic diarrhea Anemia Gastritis, duodenitis Duodenal tubular adenoma Adenomatous colon polyps Duodenal AVMs Past Surgical History EGD Incomplete colonoscopy Hernia Repair Cardiac Stent AAA Repair Tonsillectomy (Jazz Mejia) Coded Allergies: No Known Allergies (Verified , 11/19/16) Medications Allergies Coded Allergies Type Severity Reaction Last Updated Verified No Known Allergies 11/19/16 Yes Active Scripts Medications Dose Route/Sig Days Date Category Losartan (Losartan Potassium) 25 Mg Tab 25 Mg PO DAILY 11/19/16 Reported Hydralazine HCl 25 Mg Tablet 10 Mg PO TID 11/19/16 Reported Warfarin 5 Mg Tab 5 Mg PO Sun11/19/16 Reported Coreg (Carvedilol) 3.125 Mg Tab 3.125 Mg PO BID 02/10/16 Rx Warfarin 2.5 Mg Tab 2.5 Mg PO DAILY 02/06/16 Reported Pravastatin 40 Mg Tab 40 Mg PO DAILY 02/06/16 Reported Furosemide 40 Mg Tab 40 Mg PO DAILY 02/06/16 Reported Family History Noncontributory Social History Smokes 1/4 PPD x 50 years Former occasional etoh use No illicit drugs (Jazz Mejia) Review of Systems Constitutional: COMPLAINS OF: Fatigue, Weight loss, DENIES: Fever, Chills, Change in appetite Respiratory: COMPLAINS OF: Shortness of breath, DENIES: Cough Cardiovascular: DENIES: Chest pain Gastrointestinal: COMPLAINS OF: Diarrhea, Nausea, DENIES: Abdominal pain, Black stools, Bloody stools, Constipation, Vomiting, Swelling of Abdomen, Heartburn, Hematemesis Musculoskeletal: COMPLAINS OF: Back pain Hematologic/lymphatic: COMPLAINS OF: Bruising Neurologic: DENIES: Headache Psychiatric: DENIES: Confusion (Jazz Mejia) GI Exam Vitals I&O Vital Signs Date Time Temp Pulse Resp B/P Pulse Ox O2 Delivery O2 Flow Rate FiO2 11/21/16 13:00 64 11/21/16 12:00 64 11/21/16 11:37 97.5 70 18 112/59 99 11/21/16 11:00 65 11/21/16 10:00 70 11/21/16 09:13 63 11/21/16 08:00 72 11/21/16 07:00 66 11/21/16 07:00 98.3 18 18 114/52 99 11/21/16 06:00 68 11/21/16 05:00 65 11/21/16 04:00 71 11/21/16 04:00 71 18 121/79 97 11/21/16 03:00 66 11/21/16 02:00 58 11/21/16 01:00 62 11/21/16 00:00 66 11/21/16 00:00 66 18 105/58 95 11/20/16 23:00 62 11/20/16 22:00 58 11/20/16 21:00 68 11/20/16 20:00 98.1 63 18 124/63 95 11/20/16 20:00 66 11/20/16 19:00 76 11/20/16 18:15 66 11/20/16 17:00 55 11/20/16 16:23 59 11/20/16 15:46 98.3 69 18 124/57 95 11/20/16 15:00 50 11/20/16 14:00 56 I/O 11/20/16 11/20/16 11/20/16 11/21/16 11/21/16 11/21/16 07:00 15:00 23:00 07:00 15:00 23:00 Intake Total 240 ml 900 ml 990 ml Output Total 790 ml 950 ml 750 ml Balance -550 ml -50 ml 240 ml Intake Oral 240 ml 450 ml 240 ml IV Total 450 ml 750 ml Output Urine Total 790 ml 950 ml 750 ml Imaging Last Impressions Chest X-Ray 11/19/16 0000 Signed Impressions: Service Date/Time: Saturday, November 19, 2016 22:06 - CONCLUSION: No acute cardiopulmonary disease identified. Jorden Mckeon MD Chest CT 11/19/16 0000 Signed Impressions: Service Date/Time: Saturday, November 19, 2016 22:45 - CONCLUSION: No acute findings in the chest. Emphysema and aortic endostent, similar to prior CT in 2013. Blaze Marshall MD Abdomen/Pelvis CT 11/19/16 0000 Signed Impressions: Service Date/Time: Saturday, November 19, 2016 22:45 - CONCLUSION: 1. No evidence of intra-abdominal retroperitoneal fluid/hematoma. 2. Multiple findings, described above, stable from prior CT, in coating pancreatic calcification, bladder stone, renal cysts, hyperdense configuration to the appendix, and vascular stents. Blaze Marshall MD Laboratory Test 11/20/16 11/21/16 11/21/16 18:49 06:17 12:11 Hemoglobin A1c 7.4 % Magnesium Level 1.9 MG/DL 1.8 MG/DL Troponin I 0.15 NG/ML 25-Hydroxy Vitamin D Total 5.8 ng/ML Parathyroid Hormone (Intact) 923.9 PG/ML White Blood Count 8.8 TH/MM3 Red Blood Count 2.61 MIL/MM3 Hemoglobin 7.4 GM/DL 7.9 GM/DL Hematocrit 22.6 % 24.3 % Mean Corpuscular Volume 86.8 FL Mean Corpuscular Hemoglobin 28.4 PG Mean Corpuscular Hemoglobin 32.7 % Concent Red Cell Distribution Width 19.1 % Platelet Count 147 TH/MM3 Mean Platelet Volume 10.8 FL Neutrophils (%) (Auto) 71.2 % Lymphocytes (%) (Auto) 17.8 % Monocytes (%) (Auto) 8.1 % Eosinophils (%) (Auto) 1.6 % Basophils (%) (Auto) 1.3 % Neutrophils # (Auto) 6.3 TH/MM3 Lymphocytes # (Auto) 1.6 TH/MM3 Monocytes # (Auto) 0.7 TH/MM3 Eosinophils # (Auto) 0.1 TH/MM3 Basophils # (Auto) 0.1 TH/MM3 CBC Comment DIFF FINAL Differential Comment Prothrombin Time 14.9 SEC Prothromb Time International 1.3 RATIO Ratio Sodium Level 145 MEQ/L Potassium Level 3.8 MEQ/L Chloride Level 122 MEQ/L Carbon Dioxide Level 14.9 MEQ/L Anion Gap 8 MEQ/L Blood Urea Nitrogen 32 MG/DL Creatinine 1.84 MG/DL Estimat Glomerular Filtration 36 ML/MIN Rate Random Glucose 98 MG/DL Calcium Level 5.6 MG/DL Protein Corrected Calcium 6.6 MG/DL Iron Level 25 MCG/DL Total Iron Binding Capacity 256 MCG/DL Percent Iron Saturation 9.8 % Total Bilirubin 0.2 MG/DL Aspartate Amino Transf 32 U/L (AST/SGOT) Alanine Aminotransferase 54 U/L (ALT/SGPT) Alkaline Phosphatase 234 U/L Total Protein 4.8 GM/DL Albumin 1.9 GM/DL Date/Time Procedure Status Source Growth 11/19/16 19:51 Urine Culture - Final Complete Urine Random Urine 50-100,000 CFU/ML MIXED SILVINA... Physical Examination HEENT: Normocephalic; atraumatic; no jaundice. CHEST: CTA, Resp. even/unlabored. CARDIAC: RRR ABDOMEN: Soft, nondistended, nontender; no hepatosplenomegaly; bowel sounds are present in all four quadrants. EXTREMITIES: Trace edema. SKIN: Normal; no rash; no jaundice. AVIONICS MANAGER: No focal deficits; alert and oriented times three. (Jazz Mejia) Assessment and Plan Plan ASSESSMENT: - Chronic diarrhea. 20 BMs per dayEGD and incomplete colonoscopy in the sigmoid secondary to poor prep (02/07/16)---> gastritis, duodenitis, duodenal AVMs, incomplete colonoscopy. Pathology revealed duodenal mucosa with tubular adenoma, gastric body mucosa with focal mild chronic inflammation of the lamina propria. Acute inflammation is not identified. A jre stain is negative for helicobacter. He then had another incomplete colonoscopy )02/08/17)---> incomplete colonoscopy to the transverse colon due to poor prep, colon polyps (6) with snare polypectomy. Pathology revealed adenomatous polyps, fragments. It was recommended that he have a repeat colonoscopy in 1-2 months with a 2 day prep. He did not have this done. Stool studies at that time. Celiac was negative. CT (11/19/16)----> 1. No evidence of intra-abdominal retroperitoneal fluid/hematoma. 2.Multiple findings, described above, stable from prior CT, in coating pancreatic calcification, bladder stone, renal cysts, hyperdense configuration to the appendix, and vascular stents. ? some degree of pancreatic insufficiency. Has not had complete colonoscopy. Will plan for egd/ colonoscopy with 2 day prep. Will get spot fecal fat prior to starting bowel prep. - Anemia. 7.9/24.3. Iron 25, TIBC 256, Iron saturation 9.8. Ferrous sulfate - Abnormal weight loss. Pt reports > 200 lb over the past two years. - Hx tubular adenoma in duodenum, gastritis, duodenitis, duodenal AVM. Will plan EGD/Colonoscopy on . - Hx chronic pancreatitis. CT with pancreatic calcifications- no current ETOH use. - NSTEMI, CHF, CAD, medical management per cardiology - ASUNCION with electrolyte abnormalities. Creat 1.84 - UTI. Abx per attending, Ceftriaxone PLAN: - Clear liquid diet - Golytely prep today, repeat tomorrow - Spot fecal fat test prior to starting golytely today - Add Protonix - Monitor HH - Transfuse as necessary - CBC, CMP in am - Plan for egd/colonoscopy on , after 2 day prep - Supportive care - Further recommendations to follow based on results of above - Pt seen and examined by Dr. Feldman and myself and this note is written on his behalf (Jazz Mejia) Physician Comments Patient seen and examined Agree with above Continue current supportive care Monitor labs 2 day prep then an EGD and a colonoscopy (Phuc Feldman MD) Jazz Mejia Nov 21, 2016 14:17 Phuc Feldman MD Nov 21, 2016 19:42
[2016-11-21] MEDS ORDERED: PEG (High)/E-LYTE SOLN 4000 ML BTL PO ONE (16:00)
[2016-11-21] MEDS: SODIUM BICARBONATE 8.4% INJ 100 MEQ in WATER STERILE FOR INJ 850 ML IV SCH (16:43)
[2016-11-21] MEDS: PANTOPRAZOLE SODIUM 40 MG VIAL IV PUSH SCH (16:49)
[2016-11-21] MEDS: ACETAMINOPHEN/HYDROcodone 325 MG/5 MG TAB PO PRN (20:34)
[2016-11-21] MEDS: cefTRIAXone INJ 1,000 MG in SODIUM CHLORIDE 0.9% INJ 100 ML IV SCH (20:35)
[2016-11-22] VITALS (31 sets, daily range): BP systolic 130–158; BP diastolic 68–80; PULSE 50–75; RESP 16–20; TEMP 97.4–98.5; O2SAT 97–100
[2016-11-22] MEDS: SODIUM BICARBONATE 8.4% INJ 100 MEQ in WATER STERILE FOR INJ 850 ML IV SCH (02:40)
[2016-11-22] MEDS: INSULIN ASPART SUPPLEMENTAL SCALE SQ SCH ×4 (05:41→20:08)
[2016-11-22 07:00] LABS: AUTOMATED NEUTROPHIL # 4.3 TH/MM3 (1.8-7.7); BASOPHIL # 0.1 TH/MM3 (0-0.2); EOSINOPHIL # 0.2 TH/MM3 (0-0.4); EOSINOPHIL % 2.5 % (0.0-4.0); HEMATOCRIT 21.1 % (39.0-51.0); HEMO FLAGS DIFF FINAL; LYMPH % 25.3 % (9.0-44.0); LYMPHOCYTE # 1.8 TH/MM3 (1.0-4.8); MEAN CELL VOLUME 86.2 FL (80.0-100.0); MEAN CORPUSCULAR HEMOGLOBIN 28.5 PG (27.0-34.0); MONO % 9.7 % (0.0-8.0); NEUT % 61.5 % (16.0-70.0); PLATELET COUNT 136 TH/MM3 (150-450); RED BLOOD COUNT 2.44 MIL/MM3 (4.50-5.90); RED CELL DISTRIBUTION WIDTH 19.1 % (11.6-17.2)
[2016-11-22 07:13] LABS: BICARBONATE 16.3 MEQ/L (21.0-32.0); MAGNESIUM 1.7 MG/DL (1.5-2.5); POTASSIUM 3.4 MEQ/L (3.5-5.1)
[2016-11-22 07:19] LABS: TOTAL BILIRUBIN ADULT 0.2 MG/DL (0.2-1.0)
[2016-11-22 07:27] LABS: CALCIUM-PROTEIN CORRECTED 6.7 MG/DL (8.5-10.1)
[2016-11-22] MEDS ORDERED: SODIUM CHLOR 0.9% 250 ML INJ 250 ML IV ONE (07:45)
[2016-11-22] MEDS: SODIUM CHLORIDE 0.9% FLUSH 10 ML FLUSH IV FLUSH SCH ×2 (08:50→20:47)
[2016-11-22] MEDS: CHOLECALCIFEROL (VIT D3) 5000 UNIT CAP PO SCH (08:51)
[2016-11-22] MEDS: CARVEDILOL 3.125 MG TAB PO SCH ×2 (08:51→20:48)
[2016-11-22] MEDS: CALCIUM/VITAMIN D 250 MG/125 U TAB PO SCH ×2 (08:51→20:48)
[2016-11-22] MEDS: FERROUS SULFATE 325 MG (65 MG ELEMENTAL IRON) TAB PO SCH (08:51)
[2016-11-22] MEDS: CALCITRIOL 0.25 MCG CAP PO SCH (08:51)
[2016-11-22] MEDS: PRAVASTATIN SOD 40 MG TAB PO SCH (08:51)
[2016-11-22] MEDS: hydrALAZINE HCL 10 MG TAB PO SCH ×3 (08:51→18:01)
[2016-11-22] MEDS: DOCUSATE SODIUM 50 MG/SENNA 8.6 MG TAB PO SCH ×2 (08:52→20:39)
[2016-11-22] MEDS ORDERED: FUROSEMIDE 20 MG/2 ML VIAL IV ONE ×2 (09:00→20:00)
--- NOTE | 2016-11-22 11:04 | HHI.GIFU ---
Subjective Remarks Resting in bed. No obvious active bleeding. No n/v. No abdominal pain. States he was up all night from the bowel prep yesterday. (Jazz Mejia) Objective Vitals I&O Vital Signs Date Time Temp Pulse Resp B/P Pulse Ox O2 Delivery O2 Flow Rate FiO2 11/22/16 10:00 62 11/22/16 09:00 66 11/22/16 08:00 65 11/22/16 07:42 98.4 65 18 134/68 97 11/22/16 07:00 56 11/22/16 06:00 58 11/22/16 05:00 62 11/22/16 04:00 70 11/22/16 04:00 66 16 140/72 98 11/22/16 03:00 62 11/22/16 02:00 58 11/22/16 01:00 58 11/22/16 00:00 75 16 130/70 98 11/22/16 00:00 53 11/21/16 23:00 58 11/21/16 22:00 58 11/21/16 21:00 68 11/21/16 20:00 72 11/21/16 20:00 97.5 69 16 131/65 98 11/21/16 19:00 72 11/21/16 18:00 74 11/21/16 17:00 78 11/21/16 16:00 56 11/21/16 15:53 66 11/21/16 15:53 97.6 63 16 126/63 98 11/21/16 14:00 58 11/21/16 13:00 64 11/21/16 12:00 64 11/21/16 11:37 97.5 70 18 112/59 99 11/21/16 11:00 65 I/O 11/21/16 11/21/16 11/21/16 11/22/16 11/22/16 11/22/16 06:59 14:59 22:59 06:59 14:59 22:59 Intake Total 990 ml 1550 ml 240 ml Output Total 750 ml 1300 ml 800 ml Balance 240 ml 250 ml -560 ml Intake Oral 240 ml 650 ml 240 ml IV Total 750 ml 900 ml Output Urine Total 750 ml 1300 ml 800 ml # Bowel Movements 4 3 Laboratory Laboratory Tests Test 11/21/16 11/22/16 12:11 06:08 Hemoglobin 7.9 7.0 Hematocrit 24.3 21.1 White Blood Count 7.0 Red Blood Count 2.44 Mean Corpuscular Volume 86.2 Mean Corpuscular Hemoglobin 28.5 Mean Corpuscular Hemoglobin 33.0 Concent Red Cell Distribution Width 19.1 Platelet Count 136 Mean Platelet Volume 11.0 Neutrophils (%) (Auto) 61.5 Lymphocytes (%) (Auto) 25.3 Monocytes (%) (Auto) 9.7 Eosinophils (%) (Auto) 2.5 Basophils (%) (Auto) 1.0 Neutrophils # (Auto) 4.3 Lymphocytes # (Auto) 1.8 Monocytes # (Auto) 0.7 Eosinophils # (Auto) 0.2 Basophils # (Auto) 0.1 CBC Comment DIFF FINAL Differential Comment Sodium Level 149 Potassium Level 3.4 Chloride Level 122 Carbon Dioxide Level 16.3 Anion Gap 11 Blood Urea Nitrogen 33 Creatinine 1.77 Estimat Glomerular Filtration 38 Rate Random Glucose 85 Calcium Level 5.7 Protein Corrected Calcium 6.7 Phosphorus Level 3.6 Magnesium Level 1.7 Total Bilirubin 0.2 Aspartate Amino Transf 18 (AST/SGOT) Alanine Aminotransferase 40 (ALT/SGPT) Alkaline Phosphatase 222 Total Protein 4.8 Albumin 1.9 Date/Time Procedure Status Source Growth 11/21/16 17:24 Stool Occult Blood (CHRISTO) - Final Complete Stool Stool HEMOCCULT POSITIVE 11/19/16 19:51 Urine Culture - Final Complete Urine Random Urine 50-100,000 CFU/ML MIXED SILVINA... Imaging Last Impressions Chest X-Ray 11/19/16 0000 Signed Impressions: Service Date/Time: Saturday, November 19, 2016 22:06 - CONCLUSION: No acute cardiopulmonary disease identified. Jorden Mckeon MD Chest CT 11/19/16 0000 Signed Impressions: Service Date/Time: Saturday, November 19, 2016 22:45 - CONCLUSION: No acute findings in the chest. Emphysema and aortic endostent, similar to prior CT in 2014. Blaze Marshall MD Abdomen/Pelvis CT 11/19/16 0000 Signed Impressions: Service Date/Time: Saturday, November 19, 2016 22:45 - CONCLUSION: 1. No evidence of intra-abdominal retroperitoneal fluid/hematoma. 2. Multiple findings, described above, stable from prior CT, in coating pancreatic calcification, bladder stone, renal cysts, hyperdense configuration to the appendix, and vascular stents. Blaze Marshall MD Physical Exam HEENT: Normocephalic; atraumatic; no jaundice. CHEST: CTA, Resp. even/unlabored. CARDIAC: RRR ABDOMEN: Soft, nondistended, nontender; no hepatosplenomegaly; bowel sounds are present in all four quadrants. EXTREMITIES: Trace edema. SKIN: Normal; no rash; no jaundice. CHIEF ACCOUNTING OFFICER: No focal deficits; alert and oriented times three. (Jazz Mejia [facility]) Assessment and Plan Plan ASSESSMENT: - Chronic diarrhea. 20 BMs per dayEGD and incomplete colonoscopy in the sigmoid secondary to poor prep (02/07/16)---> gastritis, duodenitis, duodenal AVMs, incomplete colonoscopy. Pathology revealed duodenal mucosa with tubular adenoma, gastric body mucosa with focal mild chronic inflammation of the lamina propria. Acute inflammation is not identified. A jre stain is negative for helicobacter. He then had another incomplete colonoscopy )02/08/17)---> incomplete colonoscopy to the transverse colon due to poor prep, colon polyps (6) with snare polypectomy. Pathology revealed adenomatous polyps, fragments. It was recommended that he have a repeat colonoscopy in 1-2 months with a 2 day prep. He did not have this done. Stool studies at that time. Celiac was negative. CT (11/19/16)----> 1. No evidence of intra-abdominal retroperitoneal fluid/hematoma. 2.Multiple findings, described above, stable from prior CT, in coating pancreatic calcification, bladder stone, renal cysts, hyperdense configuration to the appendix, and vascular stents. ? some degree of pancreatic insufficiency. Has not had complete colonoscopy. Fecal fat pending. Plan is for egd/colonoscopy after 2 day prep. Had golytely yesterday, will get repeat dose today and plan for procedure in am. - Anemia. Iron 25, TIBC 256, Iron saturation 9.8. HH 7.0/21.1. Ferrous sulfate , PPI - Abnormal weight loss. Pt reports > 200 lb over the past two years. - Hx tubular adenoma in duodenum, gastritis, duodenitis, duodenal AVM. Will plan EGD/Colonoscopy on . - Hx chronic pancreatitis. CT with pancreatic calcifications- no current ETOH use. - NSTEMI, CHF, CAD, medical management per cardiology - ASUNCION with electrolyte abnormalities. Creat 1.77 - UTI. Abx per attending, Ceftriaxone PLAN: - Plan for egd/colonoscopy tomorrow - Obtain consents - Clear liquids - NPO after MN - Golytely prep - Cont. Protonix - Monitor HH - Transfuse as necessary - Await fecal fat - Supportive care - Further recommendations to follow based on results of above - Pt seen and examined by Dr. Feldman and myself and this note is written on his behalf (Jazz Mejia) Physician Comments Patient seen and examined Agree with above Continue with current supportive care Monitor labs Plan for an EGD and a colonoscopy tomorrow (Phuc Feldman MD) Jazz Mejia Nov 22, 2016 11:04 Phuc Feldman MD Nov 22, 2016 12:32
--- NOTE | 2016-11-22 12:19 | HHI.NPPN ---
Subjective General Problems: Anemia Renal Failure: Chronic, Acute, Stage III Interval History Renal function is slightly better. He has been doing colon prep for colonoscopy scheduled for tomorrow. Slightly hypokalemic. (Ebony Swenson) Review of Systems General Constitutional: Fatigue (Ebony Swenson) Gastrointestinal Gastrointestinal: Diarrhea (Ebony Swenson) Objective Data Data 11/21/16 11/22/16 18:59 06:59 Intake Total 1550 ml 240 ml Output Total 1300 ml 800 ml Balance 250 ml -560 ml Intake Oral 650 ml 240 ml IV Total 900 ml Output Urine Total 1300 ml 800 ml # Bowel Movements 4 3 Vital Signs Date Time Temp Pulse Resp B/P Pulse Ox O2 Delivery O2 Flow Rate FiO2 11/22/16 11:26 98.5 73 20 137/69 98 11/22/16 10:00 62 11/22/16 09:00 66 11/22/16 08:00 65 11/22/16 07:42 98.4 65 18 134/68 97 11/22/16 07:00 56 11/22/16 06:00 58 11/22/16 05:00 62 11/22/16 04:00 70 11/22/16 04:00 66 16 140/72 98 11/22/16 03:00 62 11/22/16 02:00 58 11/22/16 01:00 58 11/22/16 00:00 75 16 130/70 98 11/22/16 00:00 53 11/21/16 23:00 58 11/21/16 22:00 58 11/21/16 21:00 68 11/21/16 20:00 72 11/21/16 20:00 97.5 69 16 131/65 98 11/21/16 19:00 72 11/21/16 18:00 74 11/21/16 17:00 78 11/21/16 16:00 56 11/21/16 15:53 66 11/21/16 15:53 97.6 63 16 126/63 98 11/21/16 14:00 58 11/21/16 13:00 64 (Ebony Swenson) -: 11/22/16 0608 11/22/16 0608 Microbiology 11/21/16 Stool Occult Blood (CHRISTO) - Final, Complete HEMOCCULT POSITIVE Tubes & Lines: Sands Drip Comment bicarb gtt, 100 mEq in 1 NS @ 75 cc/hr (Ebony Swenson) Physical Exam General Appearance: No Acute Distress, Comfortable, Malnourished (Ebony Swenson) Eyes Eye Exam: Pupils Equal (Ebony Swenson) Throat Throat Remarks poor dentition (Ebony Swenson) Neck Neck Exam: Neck Supple, Trachea Midline (Ebony Swenson) Pulmonary Resp Exam: Breath Sounds Equal, No Distress, Rhonchi Resp Remarks wheezing, expiratory (Ebony Swenson) Cardiology CV Exam: Good Perfusion, Irregular (Ebony Swenson) Gastrointestinal/Abdomen GI Exam: Soft, Non-Tender, Bowel Sounds Present GI Remarks round, umbilical hernia is present (Ebony Swenson) Genitourinary Exam: Clear Urine (Ebony Swenson) Musculoskeletal MS Exam: Joints Intact, Normal Tone (Ebony Swenson) Integumentary Skin Exam: Warm, Dry (Ebony Swenson) Extremeties Extremities Exam: No Edema, Pedal Pulses Palpable (Ebony Swenson) Neurologic Neuro Exam: Alert, Awake, Oriented, Speech Clear, Moving All Extremities ( Ebony Swenson) Psychiatric Psych Exam: Appropriate Responses (Ebony Swenson) Assessment/Plan Discussed Condition With: Patient Assessment Summary: ASUNCION/Acute Renal Failure, Anemia of CKD, Proteinuria, Vitamin D Defeciency, Hypertension, Diabetes Mellitus, CKD Stage III Electrolyte Assessment: Hypocalcemia, Metabolic Acidosis Problem List: (1) ASUNCION (acute kidney injury) Plan: In a patient with underlying CKD 3 baseline appears to be creatinine raging 1.5-1.7 from 2016, GFR near 40 he has over 2 grams proteinuria, suggesting probable underlying diabetic nephropathy; consider CRISTI or ARB in upcoming days ASUNCION: prerenal azotemia suspected from dehydration, with metabolic acidosis likely from GI losses from diarrhea renal function has improved likely to his new baseline continue bicarb drip, reduce rate to 40 cc/hr, continue IVF until after colonoscopy follow renal function daily replace potassium avoid nephrotoxins daily renal panel he has chronic sands and is non oliguric; I offered urology evaluation to assess need for buttermaker helper sands catheter, he refused he is on Rocephin for UTI (2) Hypocalcemia Plan: due to severe Vitamin D deficiency oral vitamin D and calcitriol ordered continue oral calcium replacement, follow labs (3) Supratherapeutic INR Plan: INR corrected defer to medical team restarting Coumadin he is not on anticoagulation at this time (4) HTN (hypertension) Plan: blood pressure is acceptable continue ordered medications avoid CRISTI at this time (5) Diarrhea Plan: to have colonoscopy tomorrow (6) Anemia Plan: probable anemia of chronic disease also slight iron deficiency, on oral iron ordered blood transfusion today, 2 units (7) T2DM (type 2 diabetes mellitus) Plan: A1c is 7.4, he is not on medications at home (Ebony Swenson) Plan patient was seen and examined. Renal function is stable, likely at baseline. Taper off fluids. Colonoscopy is planned. (Jd Mathur MD) Ebony Swenson Nov 22, 2016 12:19 Jd Mathur MD Nov 22, 2016 20:01
[2016-11-22] MEDS ORDERED: POTASSIUM CHLORIDE 10 MEQ CONTROLLED RELEASE TAB PO ONE (12:30)
--- NOTE | 2016-11-22 14:20 | HHI.PR ---
Subjective Remarks Follow up anemia, renal insufficiency, electrolyte abnormalities. The patient continues to report back pain. Denies lightheadedness or dizziness. No chest pain or dyspnea. Objective Vitals Vital Signs Date Time Temp Pulse Resp B/P Pulse Ox O2 Delivery O2 Flow Rate FiO2 11/22/16 11:26 98.5 73 20 137/69 98 11/22/16 10:00 62 11/22/16 09:00 66 11/22/16 08:00 65 11/22/16 07:42 98.4 65 18 134/68 97 11/22/16 07:00 56 11/22/16 06:00 58 11/22/16 05:00 62 11/22/16 04:00 70 11/22/16 04:00 66 16 140/72 98 11/22/16 03:00 62 11/22/16 02:00 58 11/22/16 01:00 58 11/22/16 00:00 75 16 130/70 98 11/22/16 00:00 53 11/21/16 23:00 58 11/21/16 22:00 58 11/21/16 21:00 68 11/21/16 20:00 72 11/21/16 20:00 97.5 69 16 131/65 98 11/21/16 19:00 72 11/21/16 18:00 74 11/21/16 17:00 78 11/21/16 16:00 56 11/21/16 15:53 66 11/21/16 15:53 97.6 63 16 126/63 98 I/O 11/21/16 11/21/16 11/21/16 11/22/16 11/22/16 11/22/16 07:00 15:00 23:00 07:00 15:00 23:00 Intake Total 990 ml 1550 ml 240 ml Output Total 750 ml 1300 ml 800 ml Balance 240 ml 250 ml -560 ml Intake Oral 240 ml 650 ml 240 ml IV Total 750 ml 900 ml Output Urine Total 750 ml 1300 ml 800 ml # Bowel Movements 4 3 Result Diagram: 11/22/16 0608 11/22/16 0608 Imaging Last Impressions Chest X-Ray 11/19/16 0000 Signed Impressions: Service Date/Time: Saturday, November 19, 2016 22:06 - CONCLUSION: No acute cardiopulmonary disease identified. Jorden Mckeon MD Chest CT 11/19/16 0000 Signed Impressions: Service Date/Time: Saturday, November 19, 2016 22:45 - CONCLUSION: No acute findings in the chest. Emphysema and aortic endostent, similar to prior CT in 2013. Blaze Marshall MD Abdomen/Pelvis CT 11/19/16 0000 Signed Impressions: Service Date/Time: Saturday, November 19, 2016 22:45 - CONCLUSION: 1. No evidence of intra-abdominal retroperitoneal fluid/hematoma. 2. Multiple findings, described above, stable from prior CT, in coating pancreatic calcification, bladder stone, renal cysts, hyperdense configuration to the appendix, and vascular stents. Blaze Marshall MD Objective Remarks General: Elderly male in no acute distress. Heart: Regular rate and rhythm. No murmur. Lungs: Clear to auscultation bilaterally. No wheezes, rales, or rhonchi. Breathing is nonlabored. Abdomen: Soft, nontender, nondistended. Umbilical hernia. Extremities: Trace bilateral lower extremity edema. Psych: Alert and oriented. Procedures None Urinary Catheter: No Vascular Central Line Catheter: No A/P Problem List: (1) NSTEMI (non-ST elevated myocardial infarction) ICD Code: I21.4 Status: Acute (2) CHF (congestive heart failure) ICD Code: I50.9 Status: Chronic (3) Hyperkalemia ICD Code: E87.5 Status: Resolved (4) Hypocalcemia ICD Code: E83.51 Status: Acute (5) Supratherapeutic INR ICD Code: R79.1 Status: Acute (6) UTI (urinary tract infection) ICD Code: N39.0 Status: Acute (7) HTN (hypertension) ICD Code: I10 Status: Chronic (8) DM (diabetes mellitus) ICD Code: E11.9 Status: Chronic (9) Tobacco abuse ICD Code: Z72.0 Status: Chronic (10) Hyperlipidemia ICD Code: E78.5 Status: Chronic (11) CAD (coronary artery disease) ICD Code: I25.10 Status: Chronic (12) Anemia ICD Code: D64.9 Status: Acute Assessment and Plan 1. NSTEMI: Troponin mildly elevated. Cardiology consult is pending. Nitroglycerin, morphine as needed. Monitor on telemetry. 2. Chronic diastolic CHF: Caution with IV fluids. 3. Hypokalemia: Potassium was elevated on presentation to ER, then decreased. Supplement as needed. 4. Hypocalcemia: Still low. Supplement calcium. Appreciate nephrology recommendations. 5. Supratherapeutic INR: Resolved following vitamin K. 6. UTI: Continue antibiotics. 7. Hypertension: Continue medications. 8. Diabetes mellitus: Monitor Accu-Cheks and cover with sliding scale insulin. A1c is 7.4. 9. Acute kidney injury superimposed on chronic kidney disease stage III: Appreciate nephrology recommendations. Gentle IV fluid hydration. Monitor labs. Creatinine improving. 10. DVT prophylaxis: Coumadin is on hold. ZHANE Cruz. 11. Elevated LFTs: Hepatitis panel pending. LFTs are now within normal limits. 12. Anemia: Secondary to acute blood loss. Hemoccult positive. Appreciate GI recommendations. Planning for EGD/colonoscopy tomorrow. Hemoglobin continues to trend down. Transfuse 2 units PRBCs today. Problem Qualifiers (1) CHF (congestive heart failure): Ming Claire MD Nov 22, 2016 14:20
[2016-11-22] MEDS ORDERED: PEG (High)/E-LYTE SOLN 4000 ML BTL PO ONE (17:00)
[2016-11-22] MEDS: PANTOPRAZOLE SODIUM 40 MG VIAL IV PUSH SCH (17:10)
[2016-11-22] MEDS: cefTRIAXone INJ 1,000 MG in SODIUM CHLORIDE 0.9% INJ 100 ML IV SCH (20:47)
[2016-11-23] VITALS (11 sets, daily range): BP systolic 140–171; BP diastolic 72–86; PULSE 43–74; RESP 18–20; TEMP 97.3–98.6; O2SAT 96–97
[2016-11-23 06:47] LABS: AUTOMATED NEUTROPHIL # 4.6 TH/MM3 (1.8-7.7); BASOPHIL # 0.1 TH/MM3 (0-0.2); BASOPHIL % 1.2 % (0.0-2.0); EOSINOPHIL # 0.2 TH/MM3 (0-0.4); EOSINOPHIL % 2.5 % (0.0-4.0); HEMATOCRIT 27.1 % (39.0-51.0); HEMO FLAGS DIFF FINAL; LYMPH % 24.1 % (9.0-44.0); LYMPHOCYTE # 1.8 TH/MM3 (1.0-4.8); MEAN CELL VOLUME 85.9 FL (80.0-100.0); MEAN CORPUSCULAR HEMOGLOBIN 28.9 PG (27.0-34.0); MEAN CORPUSCULAR HGB CONC 33.7 % (32.0-36.0); MONO % 9.1 % (0.0-8.0); NEUT % 63.1 % (16.0-70.0); PLATELET COUNT 126 TH/MM3 (150-450); RED BLOOD COUNT 3.15 MIL/MM3 (4.50-5.90); RED CELL DISTRIBUTION WIDTH 17.9 % (11.6-17.2); WHITE BLOOD COUNT 7.4 TH/MM3 (4.0-11.0)
[2016-11-23] MEDS: INSULIN ASPART SUPPLEMENTAL SCALE SQ SCH ×4 (07:00→20:44)
[2016-11-23 07:19] LABS: BICARBONATE 19.4 MEQ/L (21.0-32.0); POTASSIUM 3.1 MEQ/L (3.5-5.1)
[2016-11-23] MEDS: CALCITRIOL 0.25 MCG CAP PO SCH (07:32)
[2016-11-23] MEDS: CARVEDILOL 3.125 MG TAB PO SCH ×2 (07:32→20:39)
[2016-11-23] MEDS: CHOLECALCIFEROL (VIT D3) 5000 UNIT CAP PO SCH (07:32)
[2016-11-23] MEDS: FERROUS SULFATE 325 MG (65 MG ELEMENTAL IRON) TAB PO SCH (07:33)
[2016-11-23] MEDS: CALCIUM/VITAMIN D 250 MG/125 U TAB PO SCH ×2 (07:33→20:38)
[2016-11-23] MEDS: PRAVASTATIN SOD 40 MG TAB PO SCH (07:33)
[2016-11-23] MEDS: hydrALAZINE HCL 10 MG TAB PO SCH ×3 (07:33→16:33)
[2016-11-23] MEDS: DOCUSATE SODIUM 50 MG/SENNA 8.6 MG TAB PO SCH ×2 (07:33→20:39)
[2016-11-23] MEDS: SODIUM CHLORIDE 0.9% FLUSH 10 ML FLUSH IV FLUSH SCH ×2 (07:34→20:39)
[2016-11-23] MEDS ORDERED: POTASSIUM CHLORIDE 10 MEQ CONTROLLED RELEASE TAB PO ONE (09:30)
--- NOTE | 2016-11-23 09:34 | HHI.PR ---
Subjective Remarks Follow-up back pain, anemia, electrolyte abnormalities. The patient states that he is feeling a little better today. His back pain has decreased. He is scheduled for EGD/colonoscopy today. Objective Vitals Vital Signs Date Time Temp Pulse Resp B/P Pulse Ox O2 Delivery O2 Flow Rate FiO2 11/23/16 09:00 64 11/23/16 08:00 56 11/23/16 07:00 54 11/23/16 07:00 98.6 57 20 158/76 97 11/23/16 04:00 71 11/23/16 04:00 98.1 61 18 140/78 97 11/23/16 02:10 97.8 60 18 150/80 97 11/23/16 00:00 50 11/23/16 00:00 97.8 59 18 147/86 97 11/22/16 22:55 97.4 52 18 145/72 97 11/22/16 22:37 98.0 53 18 148/74 97 11/22/16 20:30 97.7 63 18 154/75 100 11/22/16 20:00 67 11/22/16 18:02 50 11/22/16 18:00 54 18 158/69 100 11/22/16 17:55 98.0 60 20 150/75 100 11/22/16 17:50 98.1 53 20 153/80 100 11/22/16 17:45 98.1 58 20 151/76 100 11/22/16 17:40 98.3 59 20 143/72 100 11/22/16 17:00 56 11/22/16 16:13 62 11/22/16 15:16 98.2 56 18 151/76 99 11/22/16 15:00 52 11/22/16 14:00 65 11/22/16 13:00 66 11/22/16 12:00 60 11/22/16 11:26 98.5 73 20 137/69 98 11/22/16 11:00 56 11/22/16 10:00 62 I/O 11/22/16 11/22/16 11/22/16 11/23/16 11/23/16 11/23/16 07:00 15:00 23:00 07:00 15:00 23:00 Intake Total 240 ml 2060 ml Output Total 800 ml 4275 ml 2000 ml Balance -560 ml -2215 ml -2000 ml Intake Oral 240 ml 1600 ml IV Total 460 ml Output Urine Total 800 ml 4275 ml 2000 ml # Bowel Movements 3 Result Diagram: 11/23/16 0550 11/23/16 0550 Imaging Last Impressions Chest X-Ray 11/19/16 0000 Signed Impressions: Service Date/Time: Saturday, November 19, 2016 22:06 - CONCLUSION: No acute cardiopulmonary disease identified. Jorden Mckeon MD Chest CT 11/19/16 0000 Signed Impressions: Service Date/Time: Saturday, November 19, 2016 22:45 - CONCLUSION: No acute findings in the chest. Emphysema and aortic endostent, similar to prior CT in 2013. Blaze Marshall MD Abdomen/Pelvis CT 11/19/16 0000 Signed Impressions: Service Date/Time: Saturday, November 19, 2016 22:45 - CONCLUSION: 1. No evidence of intra-abdominal retroperitoneal fluid/hematoma. 2. Multiple findings, described above, stable from prior CT, in coating pancreatic calcification, bladder stone, renal cysts, hyperdense configuration to the appendix, and vascular stents. Blaze Marshall MD Objective Remarks General: Elderly male in no acute distress. Heart: Regular rate and rhythm. No murmur. Lungs: Clear to auscultation bilaterally. No wheezes, rales, or rhonchi. Breathing is nonlabored. Abdomen: Soft, nontender, nondistended. Umbilical hernia. Extremities: Trace bilateral lower extremity edema. Psych: Alert and oriented. Procedures None Urinary Catheter: No Vascular Central Line Catheter: No A/P Problem List: (1) NSTEMI (non-ST elevated myocardial infarction) ICD Code: I21.4 Status: Acute (2) CHF (congestive heart failure) ICD Code: I50.9 Status: Chronic (3) Hyperkalemia ICD Code: E87.5 Status: Resolved (4) Hypocalcemia ICD Code: E83.51 Status: Acute (5) Supratherapeutic INR ICD Code: R79.1 Status: Acute (6) UTI (urinary tract infection) ICD Code: N39.0 Status: Acute (7) HTN (hypertension) ICD Code: I10 Status: Chronic (8) DM (diabetes mellitus) ICD Code: E11.9 Status: Chronic (9) Tobacco abuse ICD Code: Z72.0 Status: Chronic (10) Hyperlipidemia ICD Code: E78.5 Status: Chronic (11) CAD (coronary artery disease) ICD Code: I25.10 Status: Chronic (12) Anemia ICD Code: D64.9 Status: Acute Assessment and Plan 1. NSTEMI: Troponin mildly elevated. Appreciate cardiology recommendations. 2. Chronic diastolic CHF: Caution with IV fluids. 3. Hypokalemia: Potassium was elevated on presentation to ER, then decreased. Supplement as needed. 4. Hypocalcemia: Still low. Continue calcium supplementation. Appreciate nephrology recommendations. 5. Supratherapeutic INR: Resolved following vitamin K. 6. UTI: Continue antibiotics. 7. Hypertension: Continue medications. 8. Diabetes mellitus: Monitor Accu-Cheks and cover with sliding scale insulin. A1c is 7.4. 9. Acute kidney injury superimposed on chronic kidney disease stage III: Appreciate nephrology recommendations. Gentle IV fluid hydration. Monitor labs. Creatinine improving. 10. DVT prophylaxis: Coumadin is on hold. ZHANE Cruz. 11. Elevated LFTs: Hepatitis panel pending. LFTs are now within normal limits. 12. Anemia: Secondary to acute blood loss. Hemoccult positive. Appreciate GI recommendations. Planning for EGD/colonoscopy today. Hemoglobin is improved following transfusion of 2 units PRBCs. Problem Qualifiers (1) CHF (congestive heart failure): Ming Claire MD Nov 23, 2016 09:34
[2016-11-23] MEDS ORDERED: PROPOFOL 200 MG/20 ML AMP IV ONE (10:48)
[2016-11-23 11:02] LABS: FECAL FAT % FAT 39 % fat (< 20)
[2016-11-23] MEDS ORDERED: DO NOT ADM ANY ANTICOAGULANT DRUGS PRN (11:54)
--- NOTE | 2016-11-23 12:03 | PD.PROCEDR ---
GI Procedure REFERRING PHYSICIAN PRESTON PROCEDURE PERFORMED EGD with biopsy followed by Colonoscopy with snare polypectomy INDICATION FOR PROCEDURE History of diarrhea PROCEDURE: The procedure, risks and benefits were discussed with Mr. Mary and informed consent was obtained. Anesthesia sedated him with Diprivan. He was placed in the left lateral decubitus position. EGD: The Pentax videoscope was introduced through the oropharynx and advanced to the second portion of the duodenum under direct visualization. Retroflexion was performed in the stomach. FINDINGS: The esophagus this was unremarkable The stomach this was unremarkable The duodenum there was nodular duodenitis of the duodenal bulb and sweep this was biopsied Colonoscopy: The Pentax videoscope was introduced through the rectum and advanced to cecum where the ileocecal valve and appendiceal orifice were identified. Retroflexion was performed in the rectum. Colonic prep was fair FINDINGS: Colonic withdrawal time greater than 6 minutes procedure time greater than an hour this was a very difficult procedure with multiple polyps noted especially in the cecum and ascending and transverse colon but the colon was so mobile I was unable to get good positioning to remove all these polyps I did remove cecal and ascending colon polyps they were big but not worrisome for malignancy at this point I would be concerned about high-grade dysplasia because of the length of the procedure I opted to stop at this point so as to await for pathology and then make a decision regarding further colonoscopies versus right hemicolectomy the rest of the colon appeared to be unremarkable for the most part ESTIMATED BLOOD LOSS: None SPECIMENS REMOVED: Multiple polyps COMPLICATIONS: None IMPRESSION: Nodular duodenitis Numerous colonic polyps PLAN: Await pathology Continue with current supportive care Monitor labs Repeat colonoscopy in 3 months with a 2 day GoLYTELY prep ASA [facility] Nov 23, 2016 12:03
--- NOTE | 2016-11-23 16:14 | HHI.NPPN ---
Subjective General Problems: Anemia Renal Failure: Chronic, Acute, Stage III Interval History Sitting on edge of bed. He looks better. Had colonoscopy earlier. Eating during exam. (Ebony Swenson) Review of Systems General Constitutional: Fatigue (Ebony Swenson) Gastrointestinal Gastrointestinal: Diarrhea (Ebony Swenson) Objective Data Data 11/22/16 11/23/16 19:00 07:00 Intake Total 2060 ml Output Total 3275 ml 3000 ml Balance -1215 ml -3000 ml Intake Oral 1600 ml IV Total 460 ml Output Urine Total 3275 ml 3000 ml Vital Signs Date Time Temp Pulse Resp B/P Pulse Ox O2 Delivery O2 Flow Rate FiO2 11/23/16 14:31 96 11/23/16 13:02 97.6 74 18 155/78 96 11/23/16 13:02 65 11/23/16 12:15 98.1 65 12 150/72 100 Room Air 11/23/16 12:00 71 12 144/81 98 Nasal Cannula 3 11/23/16 11:57 98.1 70 12 134/71 98 Nasal Cannula 3 11/23/16 10:00 50 11/23/16 09:00 64 11/23/16 08:00 56 11/23/16 07:00 54 11/23/16 07:00 98.6 57 20 158/76 97 11/23/16 04:00 71 11/23/16 04:00 98.1 61 18 140/78 97 11/23/16 02:10 97.8 60 18 150/80 97 11/23/16 00:00 50 11/23/16 00:00 97.8 59 18 147/86 97 11/22/16 22:55 97.4 52 18 145/72 97 11/22/16 22:37 98.0 53 18 148/74 97 11/22/16 20:30 97.7 63 18 154/75 100 11/22/16 20:00 67 11/22/16 18:02 50 11/22/16 18:00 54 18 158/69 100 11/22/16 17:55 98.0 60 20 150/75 100 11/22/16 17:50 98.1 53 20 153/80 100 11/22/16 17:45 98.1 58 20 151/76 100 11/22/16 17:40 98.3 59 20 143/72 100 11/22/16 17:00 56 11/22/16 16:13 62 (Ebony Swenson) -: 11/23/16 0550 11/23/16 0550 Tubes & Lines: White (Ebony Swenson) Physical Exam General Appearance: No Acute Distress, Comfortable, Malnourished (Ebony Swenson) Eyes Eye Exam: Pupils Equal (Ebony Swenson) Throat Throat Remarks poor dentition (Ebony Swenson) Neck Neck Exam: Neck Supple, Trachea Midline (Ebony Swenson) Pulmonary Resp Exam: Breath Sounds Equal, No Distress, Rhonchi Resp Remarks wheezing, expiratory (Ebony Swenson) Cardiology CV Exam: Good Perfusion, Irregular (Ebony Swenson) Gastrointestinal/Abdomen GI Exam: Soft, Non-Tender, Bowel Sounds Present GI Remarks round, umbilical hernia is present (Ebony Swenson) Genitourinary Exam: Clear Urine (Ebony Swenson) Musculoskeletal MS Exam: Joints Intact, Normal Tone (Ebony Swenson) Integumentary Skin Exam: Warm, Dry (Ebony Swenson) Extremeties Extremities Exam: No Edema, Pedal Pulses Palpable (Ebony Swenson) Neurologic Neuro Exam: Alert, Awake, Oriented, Speech Clear, Moving All Extremities ( Ebony Swenson) Psychiatric Psych Exam: Appropriate Responses (Ebony Swenson) Assessment/Plan Discussed Condition With: Patient Assessment Summary: ASUNCION/Acute Renal Failure, Anemia of CKD, Proteinuria, Vitamin D Defeciency, Hypertension, Diabetes Mellitus, CKD Stage III Electrolyte Assessment: Hypocalcemia, Metabolic Acidosis Problem List: (1) ASUNCION (acute kidney injury) Plan: In a patient with underlying CKD 3 baseline appears to be creatinine raging 1.5-1.7 from 2016, GFR near 40 he has over 2 grams proteinuria, suggesting probable underlying diabetic nephropathy; consider CRISTI or ARB in upcoming days renal function improving stop bicarb drip, oral intake encouraged avoid oral bicarb given hypernatremia may give 1/4 NS tomorrow depending on serum sodium K was replaced, repeat renal panel tomorrow avoid nephrotoxins he is on Rocephin for UTI (2) Hypocalcemia Plan: due to severe Vitamin D deficiency oral vitamin D and calcitriol ordered continue oral calcium replacement, follow labs (3) Supratherapeutic INR Plan: INR corrected defer to medical team restarting Coumadin he is not on anticoagulation at this time (4) HTN (hypertension) Plan: blood pressure is acceptable continue ordered medications avoid CRISTI at this time (5) Diarrhea Plan: improving, he has colonoscopy showing multiple polyps (6) Anemia Plan: Hb improved, he was transfused yesterday probable anemia of chronic disease also slight iron deficiency, on oral iron (7) T2DM (type 2 diabetes mellitus) Plan: A1c is 7.4, he is not on medications at home (Ebony Swenson) Plan patient was seen and examined. Agree with above assessment and plan. Renal function is stable, improved. Hypernatremia is noted, needs increased water intake, or hypotonic fluids. (Jd Mathur MD) Ebony Swenson Nov 23, 2016 16:14 Jd Mathur MD Nov 24, 2016 20:33
[2016-11-23] MEDS: PANTOPRAZOLE SODIUM 40 MG VIAL IV PUSH SCH (16:33)
[2016-11-23] MEDS: SODIUM BICARBONATE 8.4% INJ 100 MEQ in WATER STERILE FOR INJ 850 ML IV SCH ×2 (18:47→20:36)
[2016-11-23] MEDS: cefTRIAXone INJ 1,000 MG in SODIUM CHLORIDE 0.9% INJ 100 ML IV SCH (20:38)
[2016-11-24] VITALS (8 sets, daily range): BP systolic 149–183; BP diastolic 50–82; PULSE 42–52; RESP 16–20; TEMP 97.4–98.2; O2SAT 96–98
[2016-11-24] MEDS: INSULIN ASPART SUPPLEMENTAL SCALE SQ SCH ×4 (06:03→21:18)
--- NOTE | 2016-11-24 09:11 | HHI.PR ---
Subjective Remarks Follow up GI bleed, anemia, electrolyte abnormalities. The patient states that he feels a little better today. Back pain has been bothering him intermittently. Currently it is well controlled. Denies chest pain or dyspnea. Still reporting productive cough. Objective Vitals Vital Signs Date Time Temp Pulse Resp B/P Pulse Ox O2 Delivery O2 Flow Rate FiO2 11/24/16 08:00 98.2 46 20 183/82 97 11/24/16 04:00 97.5 52 20 157/72 96 11/24/16 00:00 97.5 51 20 149/76 96 11/23/16 20:00 43 11/23/16 20:00 97.6 50 20 171/75 97 11/23/16 14:45 97.3 68 20 153/72 97 11/23/16 14:31 96 11/23/16 13:02 97.6 74 18 155/78 96 11/23/16 13:02 65 11/23/16 12:15 98.1 65 12 150/72 100 Room Air 11/23/16 12:00 71 12 144/81 98 Nasal Cannula 3 11/23/16 11:57 98.1 70 12 134/71 98 Nasal Cannula 3 11/23/16 10:00 50 I/O 11/23/16 11/23/16 11/23/16 11/24/16 11/24/16 11/24/16 07:00 15:00 23:00 07:00 15:00 23:00 Intake Total 980 ml 1005 ml 575 ml Output Total 2000 ml 2050 ml 0 ml Balance -2000 ml -1070 ml 1005 ml 575 ml Intake Oral 480 ml 240 ml IV Total 1005 ml 335 ml Other 500 ml Output Urine Total 2000 ml 2000 ml 0 ml Estimated Blood Loss 50 ml # Voids 0 # Bowel Movements 0 Result Diagram: 11/23/16 0550 11/23/16 0550 Imaging Last Impressions Chest X-Ray 11/19/16 0000 Signed Impressions: Service Date/Time: Saturday, November 19, 2016 22:06 - CONCLUSION: No acute cardiopulmonary disease identified. Jorden Mckeon MD Chest CT 11/19/16 0000 Signed Impressions: Service Date/Time: Saturday, November 19, 2016 22:45 - CONCLUSION: No acute findings in the chest. Emphysema and aortic endostent, similar to prior CT in 2014. Blaze Marshall MD Abdomen/Pelvis CT 11/19/16 0000 Signed Impressions: Service Date/Time: Saturday, November 19, 2016 22:45 - CONCLUSION: 1. No evidence of intra-abdominal retroperitoneal fluid/hematoma. 2. Multiple findings, described above, stable from prior CT, in coating pancreatic calcification, bladder stone, renal cysts, hyperdense configuration to the appendix, and vascular stents. Blaze Marshall MD Objective Remarks General: Elderly male in no acute distress. Heart: Regular rate and rhythm. No murmur. Lungs: Clear to auscultation bilaterally. No wheezes, rales, or rhonchi. Breathing is nonlabored. Abdomen: Soft, nontender, nondistended. Umbilical hernia. Extremities: Trace bilateral lower extremity edema. Psych: Alert and oriented. Procedures 11/23/16 EGD, colonoscopy Urinary Catheter: No Vascular Central Line Catheter: No A/P Problem List: (1) NSTEMI (non-ST elevated myocardial infarction) ICD Code: I21.4 Status: Acute (2) CHF (congestive heart failure) ICD Code: I50.9 Status: Chronic (3) Hyperkalemia ICD Code: E87.5 Status: Resolved (4) Hypocalcemia ICD Code: E83.51 Status: Acute (5) Supratherapeutic INR ICD Code: R79.1 Status: Acute (6) UTI (urinary tract infection) ICD Code: N39.0 Status: Acute (7) HTN (hypertension) ICD Code: I10 Status: Chronic (8) DM (diabetes mellitus) ICD Code: E11.9 Status: Chronic (9) Tobacco abuse ICD Code: Z72.0 Status: Chronic (10) Hyperlipidemia ICD Code: E78.5 Status: Chronic (11) CAD (coronary artery disease) ICD Code: I25.10 Status: Chronic (12) Anemia ICD Code: D64.9 Status: Acute Assessment and Plan 1. Elevated troponin: Likely secondary to renal disease. Appreciate cardiology recommendations. Does not appear to be non-ST elevation TN per cardiology. 2. Chronic diastolic CHF: Caution with IV fluids. 3. Hypokalemia: Potassium was elevated on presentation to ER, then decreased. Supplement as needed. 4. Hypocalcemia: Improving. Continue calcium supplementation. Appreciate nephrology recommendations. Labs are pending. 5. Supratherapeutic INR: Resolved following vitamin K. 6. UTI: Present on admission, associated with indwelling White catheter. Continue antibiotics. Urine culture growing mixed bhaskar. 7. Hypertension: Continue medications. 8. Diabetes mellitus: Monitor Accu-Cheks and cover with sliding scale insulin. A1c is 7.4. 9. Acute kidney injury superimposed on chronic kidney disease stage III: Appreciate nephrology recommendations. Gentle IV fluid hydration. Monitor labs. Creatinine improving. 10. DVT prophylaxis: Coumadin is on hold. ZHANE Cruz. 11. Elevated LFTs: Hepatitis panel pending. LFTs are now within normal limits. 12. Anemia: Secondary to acute blood loss. Hemoccult positive. Appreciate GI recommendations. Status post EGD/colonoscopy. Labs are pending today. Discharge Planning Pending clinical improvement. Problem Qualifiers (1) CHF (congestive heart failure): iMng Claire MD Nov 24, 2016 09:11
[2016-11-24 09:33] LABS: AUTOMATED NEUTROPHIL # 5.1 TH/MM3 (1.8-7.7); BASOPHIL # 0.1 TH/MM3 (0-0.2); BASOPHIL % 0.8 % (0.0-2.0); EOSINOPHIL # 0.2 TH/MM3 (0-0.4); EOSINOPHIL % 2.5 % (0.0-4.0); HEMATOCRIT 28.7 % (39.0-51.0); HEMO FLAGS DIFF FINAL; LYMPH % 20.3 % (9.0-44.0); LYMPHOCYTE # 1.6 TH/MM3 (1.0-4.8); MEAN CELL VOLUME 86.9 FL (80.0-100.0); MEAN CORPUSCULAR HEMOGLOBIN 29.1 PG (27.0-34.0); MEAN CORPUSCULAR HGB CONC 33.5 % (32.0-36.0); MONO % 9.4 % (0.0-8.0); PLATELET COUNT 117 TH/MM3 (150-450); RED CELL DISTRIBUTION WIDTH 18.6 % (11.6-17.2); WHITE BLOOD COUNT 7.7 TH/MM3 (4.0-11.0)
[2016-11-24 09:52] LABS: BICARBONATE 21.3 MEQ/L (21.0-32.0); POTASSIUM 3.6 MEQ/L (3.5-5.1); TOTAL BILIRUBIN ADULT 0.3 MG/DL (0.2-1.0)
[2016-11-24] MEDS: CHOLECALCIFEROL (VIT D3) 5000 UNIT CAP PO SCH (10:10)
[2016-11-24] MEDS: CALCITRIOL 0.25 MCG CAP PO SCH (10:11)
[2016-11-24] MEDS: PRAVASTATIN SOD 40 MG TAB PO SCH (10:11)
[2016-11-24] MEDS: hydrALAZINE HCL 10 MG TAB PO SCH ×3 (10:11→18:02)
[2016-11-24] MEDS: CALCIUM/VITAMIN D 250 MG/125 U TAB PO SCH ×2 (10:12→21:11)
[2016-11-24] MEDS: DOCUSATE SODIUM 50 MG/SENNA 8.6 MG TAB PO SCH ×2 (10:12→21:13)
[2016-11-24] MEDS: FERROUS SULFATE 325 MG (65 MG ELEMENTAL IRON) TAB PO SCH (10:13)
[2016-11-24] MEDS: SODIUM CHLORIDE 0.9% FLUSH 10 ML FLUSH IV FLUSH SCH ×2 (10:14→21:12)
[2016-11-24] MEDS: CARVEDILOL 3.125 MG TAB PO SCH ×2 (10:15→21:12)
[2016-11-24 10:21] LABS: CALCIUM-PROTEIN CORRECTED 7.2 MG/DL (8.5-10.1)
[2016-11-24] MEDS ORDERED: CALCIUM CHLORIDE INJ 1 GM in DEXTROSE 5% IN WATER 100ML INJ 100 ML IV ONE ×2 (11:00)
--- NOTE | 2016-11-24 12:02 | HHI.GIFU ---
Subjective Remarks Up in chair. Tolerating diet. No signs of bleeding. Mild epigastric discomfort. (Jazz Mejia) Objective Vitals I&O Vital Signs Date Time Temp Pulse Resp B/P Pulse Ox O2 Delivery O2 Flow Rate FiO2 11/24/16 10:02 42 150/52 150/52 11/24/16 08:00 98.2 46 20 183/82 97 11/24/16 04:00 97.5 52 20 157/72 96 11/24/16 00:00 97.5 51 20 149/76 96 11/23/16 20:00 43 11/23/16 20:00 97.6 50 20 171/75 97 11/23/16 14:45 97.3 68 20 153/72 97 11/23/16 14:31 96 11/23/16 13:02 97.6 74 18 155/78 96 11/23/16 13:02 65 11/23/16 12:15 98.1 65 12 150/72 100 Room Air 11/23/16 12:00 71 12 144/81 98 Nasal Cannula 3 11/23/16 11:57 98.1 70 12 134/71 98 Nasal Cannula 3 I/O 11/23/16 11/23/16 11/23/16 11/24/16 11/24/16 11/24/16 06:59 14:59 22:59 06:59 14:59 22:59 Intake Total 980 ml 1005 ml 575 ml Output Total 2000 ml 2050 ml 0 ml Balance -2000 ml -1070 ml 1005 ml 575 ml Intake Oral 480 ml 240 ml IV Total 1005 ml 335 ml Other 500 ml Output Urine Total 2000 ml 2000 ml 0 ml Estimated Blood Loss 50 ml # Voids 0 # Bowel Movements 0 Laboratory Laboratory Tests Test 11/24/16 06:52 White Blood Count 7.7 Red Blood Count 3.30 Hemoglobin 9.6 Hematocrit 28.7 Mean Corpuscular Volume 86.9 Mean Corpuscular Hemoglobin 29.1 Mean Corpuscular Hemoglobin 33.5 Concent Red Cell Distribution Width 18.6 Platelet Count 117 Mean Platelet Volume 11.0 Neutrophils (%) (Auto) 67.0 Lymphocytes (%) (Auto) 20.3 Monocytes (%) (Auto) 9.4 Eosinophils (%) (Auto) 2.5 Basophils (%) (Auto) 0.8 Neutrophils # (Auto) 5.1 Lymphocytes # (Auto) 1.6 Monocytes # (Auto) 0.7 Eosinophils # (Auto) 0.2 Basophils # (Auto) 0.1 CBC Comment DIFF FINAL Differential Comment Sodium Level 143 Potassium Level 3.6 Chloride Level 114 Carbon Dioxide Level 21.3 Anion Gap 8 Blood Urea Nitrogen 21 Creatinine 1.60 Estimat Glomerular Filtration 43 Rate Random Glucose 124 Calcium Level 6.2 Protein Corrected Calcium 7.2 Total Bilirubin 0.3 Aspartate Amino Transf 24 (AST/SGOT) Alanine Aminotransferase 34 (ALT/SGPT) Alkaline Phosphatase 203 Total Protein 5.0 Albumin 1.9 Date/Time Procedure Status Source Growth 11/21/16 17:24 Stool Occult Blood (CHRISTO) - Final Complete Stool Stool HEMOCCULT POSITIVE 11/19/16 19:51 Urine Culture - Final Complete Urine Random Urine 50-100,000 CFU/ML MIXED SILVINA... Imaging Last Impressions Chest X-Ray 11/19/16 0000 Signed Impressions: Service Date/Time: Saturday, November 19, 2016 22:06 - CONCLUSION: No acute cardiopulmonary disease identified. Jorden Mckeon MD Chest CT 11/19/16 0000 Signed Impressions: Service Date/Time: Saturday, November 19, 2016 22:45 - CONCLUSION: No acute findings in the chest. Emphysema and aortic endostent, similar to prior CT in 2014. Blaze Marshall MD Abdomen/Pelvis CT 11/19/16 0000 Signed Impressions: Service Date/Time: Saturday, November 19, 2016 22:45 - CONCLUSION: 1. No evidence of intra-abdominal retroperitoneal fluid/hematoma. 2. Multiple findings, described above, stable from prior CT, in coating pancreatic calcification, bladder stone, renal cysts, hyperdense configuration to the appendix, and vascular stents. Blaze Marshall MD Physical Exam HEENT: Normocephalic; atraumatic; no jaundice. CHEST: CTA, Resp. even/unlabored. CARDIAC: RRR ABDOMEN: Soft, nondistended, nontender; no hepatosplenomegaly; bowel sounds are present in all four quadrants. EXTREMITIES: Trace edema. SKIN: Normal; no rash; no jaundice. REJOINER: No focal deficits; alert and oriented times three. (Jazz Mejia) Assessment and Plan Plan ASSESSMENT: - Anemia. Iron 25, TIBC 256, Iron saturation 9.8. S/P EGD/Colonoscopy (11/23/16) ----> nodular duodenitis, multiple colon polyps-especially in cecum, ascending, and transverse colon, unable to get good positioning to remove all the polyps. Cecal and ascending colon polyps removed, they were big but not worrisome for malignancy. At this point I would be concerned about high-grade dysplasia because of the length of the procedure I opted to stop at this point so as to await for pathology and then make a decision regarding further colonoscopies versus right hemicolectomy the rest of the colon appeared to be unremarkable for the most part. Pathology pending. Ferrous sulfate, PPI. HH 9.6/28.7 - Chronic diarrhea. 20 BMs per dayEGD and incomplete colonoscopy in the sigmoid secondary to poor prep (02/07/16)---> gastritis, duodenitis, duodenal AVMs, incomplete colonoscopy. Pathology revealed duodenal mucosa with tubular adenoma, gastric body mucosa with focal mild chronic inflammation of the lamina propria. Acute inflammation is not identified. A jer stain is negative for helicobacter. He then had another incomplete colonoscopy )02/08/17)---> incomplete colonoscopy to the transverse colon due to poor prep, colon polyps (6) with snare polypectomy. Pathology revealed adenomatous polyps, fragments. It was recommended that he have a repeat colonoscopy in 1-2 months with a 2 day prep. He did not have this done. Stool studies at that time. Celiac was negative. CT (11/19/16)----> 1. No evidence of intra-abdominal retroperitoneal fluid/hematoma. 2.Multiple findings, described above, stable from prior CT, in coating pancreatic calcification, bladder stone, renal cysts, hyperdense configuration to the appendix, and vascular stents. ? some degree of pancreatic insufficiency. Has not had complete colonoscopy. Fecal fat high 39. Trial of pancreatic enzymes - Nodular duodenitis. Await pathology. PPI - Multiple colon polyps. Await pathology. - Hx chronic pancreatitis. CT with pancreatic calcifications- no current ETOH use. - NSTEMI, CHF, CAD, medical management per cardiology - ASUNCION with electrolyte abnormalities. Creat 1.77 - UTI. Abx per attending, Ceftriaxone PLAN: - LEORA - Await pathology - Cont. Protonix - Monitor HH - Transfuse as necessary - Trial of pancreatic enzymes - Supportive care - Further recommendations to follow based on results of pathology with regards to further colonoscopies vs. hemicolectomy - Will need repeat colonoscopy in 3 months with a 2 day GoLYTELY prep ASA 3 procedure to be done at the hospital - Pt seen and examined by Dr. Feldman and myself and this note is written on his behalf (Jazz Mejia) Physician Comments Patient seen and examined agree with above Continue with current supportive care Monitor labs The pathology in general is unremarkable although he does have tubular villous adenomas and the plan is to repeat colonoscopy in 3 months (Phuc Feldman MD) Jazz Mejia Nov 24, 2016 12:02 Phuc Feldman MD Nov 24, 2016 21:34
--- NOTE | 2016-11-24 12:15 | HHI.NPPN ---
Subjective General Problems: Anemia Renal Failure: Chronic, Acute, Stage III Interval History Renal function is better. Potassium and sodium have corrected. He has not had diarrhea. (Ebony Swenson) Review of Systems General Constitutional: Fatigue (Ebony Swenson) Gastrointestinal Gastrointestinal: Diarrhea (Ebony Swenson) Objective Data Data 11/23/16 11/24/16 18:59 06:59 Intake Total 980 ml 1580 ml Output Total 2050 ml 0 ml Balance -1070 ml 1580 ml Intake Oral 480 ml 240 ml IV Total 1340 ml Other 500 ml Output Urine Total 2000 ml 0 ml Estimated Blood Loss 50 ml # Voids 0 # Bowel Movements 0 Vital Signs Date Time Temp Pulse Resp B/P Pulse Ox O2 Delivery O2 Flow Rate FiO2 11/24/16 10:02 42 150/52 150/52 11/24/16 08:00 98.2 46 20 183/82 97 11/24/16 04:00 97.5 52 20 157/72 96 11/24/16 00:00 97.5 51 20 149/76 96 11/23/16 20:00 43 11/23/16 20:00 97.6 50 20 171/75 97 11/23/16 14:45 97.3 68 20 153/72 97 11/23/16 14:31 96 11/23/16 13:02 97.6 74 18 155/78 96 11/23/16 13:02 65 11/23/16 12:15 98.1 65 12 150/72 100 Room Air (Ebony Swenson) -: 11/24/16 0652 11/24/16 0652 Tubes & Lines: White (Ebony Swenson) Physical Exam General Appearance: No Acute Distress, Comfortable, Malnourished (Ebony Swenson) Eyes Eye Exam: Pupils Equal (Ebony Swenson) Throat Throat Remarks poor dentition (Ebony Swenson) Neck Neck Exam: Neck Supple, Trachea Midline (Ebony Swenson) Pulmonary Resp Exam: Breath Sounds Equal, No Distress, Rhonchi Resp Remarks wheezing, expiratory (Ebony Swenson) Cardiology CV Exam: Good Perfusion, Irregular (Ebony Swenson) Gastrointestinal/Abdomen GI Exam: Soft, Non-Tender, Bowel Sounds Present GI Remarks round, umbilical hernia is present (Ebony Swenson) Genitourinary Exam: Clear Urine (Ebony Swenson) Musculoskeletal MS Exam: Joints Intact, Normal Tone (Ebony Swenson) Integumentary Skin Exam: Warm, Dry (Ebony Swenson) Extremeties Extremities Exam: No Edema, Pedal Pulses Palpable (Ebony Swenson) Neurologic Neuro Exam: Alert, Awake, Oriented, Speech Clear, Moving All Extremities ( Ebony Swenson) Psychiatric Psych Exam: Appropriate Responses (Ebony Swenson) Assessment/Plan Discussed Condition With: Patient Assessment Summary: ASUNCION/Acute Renal Failure, Anemia of CKD, Proteinuria, Vitamin D Defeciency, Hypertension, Diabetes Mellitus, CKD Stage III Electrolyte Assessment: Hypocalcemia, Metabolic Acidosis Problem List: (1) ASUNCION (acute kidney injury) Plan: In a patient with underlying CKD 3 baseline appears to be creatinine raging 1.5-1.7 from 2016, GFR near 40 he has over 2 grams proteinuria, suggesting probable underlying diabetic nephropathy; consider CRISTI or ARB at discharge renal function improving off IVF, oral intake encouraged sodium and potassium have normalized avoid nephrotoxins he is on Rocephin for UTI (2) Hypocalcemia Plan: due to severe Vitamin D deficiency oral vitamin D and calcitriol ordered, dosage increased continue oral calcium replacement, follow labs (3) Supratherapeutic INR Plan: INR corrected defer to medical team restarting Coumadin he is not on anticoagulation at this time (4) HTN (hypertension) Plan: blood pressure is acceptable continue ordered medications give CRISTI at discharge for diabetic nephropathy (5) Diarrhea Plan: improving, he has colonoscopy showing multiple polyps (6) Anemia Plan: Hb improved, he was transfused yesterday probable anemia of chronic disease also slight iron deficiency, on oral iron (7) T2DM (type 2 diabetes mellitus) Plan: A1c is 7.4, he is not on medications at home (Ebony Swenson) Problem List: (1) ASUNCION (acute kidney injury) Plan: In a patient with underlying CKD 3 baseline appears to be creatinine raging 1.5-1.7 from 2016, GFR near 40 he has over 2 grams proteinuria, suggesting probable underlying diabetic nephropathy; consider CRISTI or ARB at discharge renal function improving off IVF, oral intake encouraged sodium and potassium have normalized avoid nephrotoxins he is on Rocephin for UTI (2) Hypocalcemia Plan: due to severe Vitamin D deficiency oral vitamin D and calcitriol ordered, dosage increased continue oral calcium replacement, follow labs (3) Supratherapeutic INR Plan: INR corrected defer to medical team restarting Coumadin he is not on anticoagulation at this time (4) HTN (hypertension) Plan: blood pressure is acceptable continue ordered medications give CRISTI at discharge for diabetic nephropathy (5) Diarrhea Plan: improving, he has colonoscopy showing multiple polyps (6) Anemia Plan: Hb improved, he was transfused yesterday probable anemia of chronic disease also slight iron deficiency, on oral iron (7) T2DM (type 2 diabetes mellitus) Plan: A1c is 7.4, he is not on medications at home Plan patient was seen and examined. Agree with above assessment and plan. (Jd Mathur MD) Ebony Swenson [facility] Nov 24, 2016 12:15 Jd Mathur MD Nov 24, 2016 20:55
[2016-11-24] MEDS: PANTOPRAZOLE SODIUM 40 MG VIAL IV PUSH SCH (18:03)
[2016-11-24] MEDS: LIPASE/PROTEASE/AMYLASE (24,000/76,000/120,000) CAP PO SCH (18:03)
[2016-11-24] MEDS: cefTRIAXone INJ 1,000 MG in SODIUM CHLORIDE 0.9% INJ 100 ML IV SCH (21:10)
[2016-11-25 00:20] VITALS: BP 141/67; PULSE 51; RESP 16; TEMP 98.1; O2SAT 93
[2016-11-25 05:00] VITALS: BP 145/66; PULSE 47; RESP 16; TEMP 97.5; O2SAT 96
[2016-11-25] MEDS: INSULIN ASPART SUPPLEMENTAL SCALE SQ SCH (05:38)
[2016-11-25 08:00] VITALS: BP 153/70; PULSE 53; PULSE 83; RESP 20; TEMP 98.2; O2SAT 95
--- NOTE | 2016-11-25 08:48 | HHI.DCPOC ---
Discharge Care Plan Goals to Promote Your Health * To prevent worsening of your condition and complications take all medications as prescribed * To maintain your health at the optimal level follow all dc instructions Directions to Meet Your Goals Take your medications as prescribed Follow your dietary instruction Follow activity as directed Keep your appointments as scheduled Take your immunizations and boosters as scheduled If your symptoms worsen call your PCP, if no PCP go to Urgent Care Center or Emergency Room Smoking is Dangerous to Your Health. Avoid second hand smoke Call the 24-hour hour crisis hotline for domestic abuse at Brandie Campos MD R3 Nov 25, 2016 08:48
[2016-11-25] MEDS ORDERED: CHOL5000 PO (08:55)
[2016-11-25] MEDS ORDERED: CALC.25 PO (08:55)
[2016-11-25] MEDS ORDERED: FERR325T20 PO (08:55)
[2016-11-25] MEDS ORDERED: CALC250 PO (08:55)
[2016-11-25] MEDS ORDERED: MAGN400S PO (08:55)
[2016-11-25] MEDS ORDERED: CALCITRIOL 0.25 MCG CAP PO SCH (09:00)
--- NOTE | 2016-11-25 09:16 | HHI.DS ---
Discharge Summary Admission Date Nov 19, 2016 at 23:21 Discharge Date: Nov 25, 2016 Admitting Diagnosis Complicated UTI, Chest pain, Elevated INR (1) CHF (congestive heart failure) ICD Code: I50.9 Diagnosis: Principal (2) Hyperkalemia ICD Code: E87.5 Diagnosis: Principal (3) Hypocalcemia ICD Code: E83.51 Diagnosis: Principal (4) Supratherapeutic INR ICD Code: R79.1 Diagnosis: Principal (5) UTI (urinary tract infection) ICD Code: N39.0 Diagnosis: Principal (6) HTN (hypertension) ICD Code: I10 Diagnosis: Secondary (7) DM (diabetes mellitus) ICD Code: E11.9 Diagnosis: Secondary (8) Tobacco abuse ICD Code: Z72.0 Diagnosis: Secondary (9) Hyperlipidemia ICD Code: E78.5 Diagnosis: Secondary (10) CAD (coronary artery disease) ICD Code: I25.10 Diagnosis: Secondary (11) Anemia ICD Code: D64.9 Diagnosis: Principal Procedures 11/23/16 EGD, colonoscopy Brief History - From Admission This is a 71-year-old male with PMH of HTN, Hyperlipidemia, A. fib on Coumadin, Anxiety, COPD, Indwelling White, CHF (Echo 02/03/16 w/ EF 55-60%), AAA Repair, CKD and Chronic Back Pain who presented to the ER with complaints of bilateral flank pain with radiation to anterior abdomen starting earlier today. States pain is chronic however has become severe in the last 1 day. Reports associated nausea, but no vomiting, diarrhea or fever. On arrival, BP 140 or 59 , HR 73, O2 sat 98% on RA, Afebrile. CBC essentially at baseline. K+ 5.3. Creatinine 2.0, previously 1.63 and 02/10/16. Calcium 5.6. Troponin 0.21. INR 9.4. UA positive for UTI. CT Abd/Pelvis w/ no evidence of intra-abdominal retroperitoneal fluid or hematoma, previous vascular stents noted. S/p Ca, Vit K and Rocephin IV in ER. CBC/BMP: 11/24/16 0652 11/24/16 0652 Significant Findings Laboratory Tests Test 11/23/16 11/24/16 05:50 06:52 Red Blood Count 3.15 MIL/MM3 3.30 MIL/MM3 (4.50-5.90) (4.50-5.90) Hemoglobin 9.1 GM/DL 9.6 GM/DL (13.0-17.0) (13.0-17.0) Hematocrit 27.1 % 28.7 % (39.0-51.0) (39.0-51.0) Red Cell Distribution Width 17.9 % 18.6 % (11.6-17.2) (11.6-17.2) Platelet Count 126 TH/MM3 117 TH/MM3 (150-450) (150-450) Monocytes (%) (Auto) 9.1 % (0.0-8.0) 9.4 % (0.0-8.0) Sodium Level 148 MEQ/L (136-145) Potassium Level 3.1 MEQ/L (3.5-5.1) Chloride Level 117 MEQ/L 114 MEQ/L (98-107) (98-107) Carbon Dioxide Level 19.4 MEQ/L (21.0-32.0) Blood Urea Nitrogen 26 MG/DL (7-18) 21 MG/DL (7-18) Creatinine 1.64 MG/DL 1.60 MG/DL (0.60-1.30) (0.60-1.30) Estimat Glomerular Filtration 41 ML/MIN (>89) 43 ML/MIN (>89) Rate Calcium Level 6.0 MG/DL 6.2 MG/DL (8.5-10.1) (8.5-10.1) Albumin 1.9 GM/DL 1.9 GM/DL (3.4-5.0) (3.4-5.0) Random Glucose 124 MG/DL (74-106) Protein Corrected Calcium 7.2 MG/DL (8.5-10.1) Alkaline Phosphatase 203 U/L (45-117) Total Protein 5.0 GM/DL (6.4-8.2) Imaging Last Impressions Chest X-Ray 11/19/16 0000 Signed Impressions: Service Date/Time: Saturday, November 19, 2016 22:06 - CONCLUSION: No acute cardiopulmonary disease identified. Jorden Mckeon MD Chest CT 11/19/16 0000 Signed Impressions: Service Date/Time: Saturday, November 19, 2016 22:45 - CONCLUSION: No acute findings in the chest. Emphysema and aortic endostent, similar to prior CT in 2013. Blaze Marshall MD Abdomen/Pelvis CT 11/19/16 0000 Signed Impressions: Service Date/Time: Saturday, November 19, 2016 22:45 - CONCLUSION: 1. No evidence of intra-abdominal retroperitoneal fluid/hematoma. 2. Multiple findings, described above, stable from prior CT, in coating pancreatic calcification, bladder stone, renal cysts, hyperdense configuration to the appendix, and vascular stents. Blaze Marshall MD PE at Discharge General: Elderly male in no acute distress. Heart: Regular rate and rhythm. No murmur. Lungs: Clear to auscultation bilaterally. No wheezes, rales, or rhonchi. Breathing is nonlabored. Abdomen: Soft, nontender, nondistended. Umbilical hernia. Extremities: Trace bilateral lower extremity edema. Psych: Alert and oriented. Hospital Course 1. Elevated troponin: Likely secondary to renal disease. Appreciate cardiology recommendations. Does not appear to be non-ST elevation PR per cardiology. Continue anticoagulation for A. fib 2. Chronic diastolic CHF: Caution with fluids. 3. Hypokalemia: Potassium was elevated on presentation to ER, then decreased. Now stable. 4. Hypocalcemia: Improving. Continue calcium supplementation. Appreciate nephrology recommendations, continue calcium and vitamin D supplementation upon discharge. 5. Supratherapeutic INR: Resolved following vitamin K. Patient will restart home Coumadin and follow-up with repeat INR on Sunday and his PCP on Sunday. 6. UTI: Present on admission, associated with indwelling White catheter. Urine culture growing mixed bhaskar. Completed 5 days Rocephin. 7. Hypertension: Continue medications. 8. Diabetes mellitus: Continue home medications. A1c is 7.4. 9. Acute kidney injury superimposed on chronic kidney disease stage III: Appreciate nephrology recommendations. Creatinine improved with gentle IV fluid hydration. 10. Elevated LFTs: Hepatitis panel negative. LFTs are now within normal limits. 12. Anemia: Secondary to acute blood loss. Hemoccult positive. Appreciate GI recommendations. Status post EGD/colonoscopy. H&H stabilized status post transfusion 2 units packed red blood cells. Continue iron supplementation on discharge. Pt Condition on Discharge: Stable Discharge Disposition: Discharge Home Discharge Time: <= 30 minutes Discharge Instructions DIET: Follow Instructions for: Heart Healthy Diet Activities you can perform: Regular-No Restrictions Follow up Referrals: PCP Follow-up - 2-3 Days New Orders: PT/INR - 2-3 Days New Medications: Calcitriol (Rocaltrol) 0.25 Mcg Cap 0.5 MCG PO DAILY #30 CAP Calcium/Vitamin D (Oyster Shell 250 mg + Vit D Tb) 250 Mg Calcium (625 Mg)-125 Unit Tablet 500 MG PO Q12HR #60 TAB Cholecalciferol (Vitamin D3) 5,000 Unit Cap 5000 UNITS PO DAILY #30 CAP Ferrous Sulfate (Ferosul) 325 Mg Tablet 325 MG PO DAILY #30 TAB Magnesium Hydroxide (Eq Milk of Magnesia) 1,200 Mg/15 Ml Gena 30 ML PO Q12H PRN MILD - MODERATE CONSTIPATION #60 Continued Medications: Carvedilol (Coreg) 3.125 Mg Tab 3.125 MG PO BID #60 Ref 3 TAB Furosemide (Furosemide) 40 Mg Tab 40 MG PO DAILY #30 Ref 0 TAB Hydralazine HCl (Hydralazine HCl) 25 Mg Tablet 10 MG PO TID Blood Pressure Management #90 Ref 0 TAB Losartan (Losartan) 25 Mg Tab 25 MG PO DAILY Blood Pressure Management #30 Ref 0 TAB Pravastatin (Pravastatin) 40 Mg Tab 40 MG PO DAILY #30 Ref 0 TAB Warfarin (Warfarin) 2.5 Mg Tab 2.5 MG PO DAILY #30 Ref 0 TAB Warfarin (Warfarin) 5 Mg Tab 5 MG PO sun Blood Clot Prevention #30 Ref 0 TAB Brandie Campos MD R3 Nov 25, 2016 09:16
[2016-11-25] MEDS: LIPASE/PROTEASE/AMYLASE (24,000/76,000/120,000) CAP PO SCH (09:45)
[2016-11-25] MEDS: DOCUSATE SODIUM 50 MG/SENNA 8.6 MG TAB PO SCH (09:46)
[2016-11-25] MEDS: CALCIUM/VITAMIN D 250 MG/125 U TAB PO SCH (09:46)
[2016-11-25] MEDS: FERROUS SULFATE 325 MG (65 MG ELEMENTAL IRON) TAB PO SCH (09:46)
[2016-11-25] MEDS: hydrALAZINE HCL 10 MG TAB PO SCH (09:46)
[2016-11-25] MEDS: CARVEDILOL 3.125 MG TAB PO SCH (09:46)
[2016-11-25] MEDS: PRAVASTATIN SOD 40 MG TAB PO SCH (09:46)
[2016-11-25] MEDS: CHOLECALCIFEROL (VIT D3) 5000 UNIT CAP PO SCH (09:46)
[2016-11-25] MEDS: SODIUM CHLORIDE 0.9% FLUSH 10 ML FLUSH IV FLUSH SCH (09:52)
[2016-11-25 12:00] VITALS: BP 173/73; PULSE 51; RESP 20; TEMP 98; O2SAT 95
== END 2016-11-25 14:27 | disposition home or self-care (01) | DRG 699 ==
LOC: NEPC 19:09 → NEDA 23:21 → HCIS 11-20 01:00 → N04A 11-23 13:56
PROVIDERS: ADMIT Family Medicine; ATTEND Family Medicine
PROC: 30233N1 Transfusion of Nonautologous Red Blood Cells into Peripheral Vein, Percutaneous Approach (ICD-10-PCS; principal; 2016-11-22)
PROC: 0DBK8ZZ Excision of Ascending Colon, Via Natural or Artificial Opening Endoscopic (ICD-10-PCS; 2016-11-23)
PROC: 0DBH8ZZ Excision of Cecum, Via Natural or Artificial Opening Endoscopic (ICD-10-PCS; 2016-11-23)
PROC: 0DB98ZX Excision of Duodenum, Via Natural or Artificial Opening Endoscopic, Diagnostic (ICD-10-PCS; 2016-11-23 10:43)
DX: T83.511A Infection and inflammatory reaction due to indwelling urethral catheter, initial encounter (principal); N17.9 Acute kidney failure, unspecified; E46 Unspecified protein-calorie malnutrition; E87.2 Acidosis; E87.0 Hyperosmolality and hypernatremia; D68.8 Other specified coagulation defects; I50.32 Chronic diastolic (congestive) heart failure; N18.3 Chronic kidney disease, stage 3 (moderate); I13.0 Hypertensive heart and chronic kidney disease with heart failure and stage 1 through stage 4 chronic kidney disease, or unspecified chronic kidney disease; D62 Acute posthemorrhagic anemia; K86.1 Other chronic pancreatitis; N39.0 Urinary tract infection, site not specified; E11.21 Type 2 diabetes mellitus with diabetic nephropathy; E11.22 Type 2 diabetes mellitus with diabetic chronic kidney disease; I48.91 Unspecified atrial fibrillation; E83.51 Hypocalcemia; E87.5 Hyperkalemia; T45.515A Adverse effect of anticoagulants, initial encounter; J44.9 Chronic obstructive pulmonary disease, unspecified; E78.5 Hyperlipidemia, unspecified; I25.10 Atherosclerotic heart disease of native coronary artery without angina pectoris; K52.9 Noninfective gastroenteritis and colitis, unspecified; E87.6 Hypokalemia; E55.9 Vitamin D deficiency, unspecified; E86.0 Dehydration; N28.1 Cyst of kidney, acquired; N21.0 Calculus in bladder; K29.80 Duodenitis without bleeding; D12.2 Benign neoplasm of ascending colon; D12.0 Benign neoplasm of cecum; F17.200 Nicotine dependence, unspecified, uncomplicated; D63.1 Anemia in chronic kidney disease; F41.9 Anxiety disorder, unspecified; Y84.6 Urinary catheterization as the cause of abnormal reaction of the patient, or of later complication, without mention of misadventure at the time of the procedure; Z68.24 Body mass index [BMI] 24.0-24.9, adult; Z79.01 Long term (current) use of anticoagulants; Z86.010 Personal history of colon polyps; Z95.5 Presence of coronary angioplasty implant and graft
CPT/HCPCS: 36430; 51702; 71010; 71250; 74176; 76937; 80053; 80069; 80074; 81001; 82043; 82272; 82306; 82710; 82948; 83036; 83540; 83550; 83735; 83970; 84100; 84155; 84484; 85014; 85018; 85025; 85610; 85730; 86850; 86900; 86901; 86920; 87086; 88305; 90471; 90732; 93005; 96361; 96365; 96366; 96375; C9113; G0009; J0610; J0696; J1815; J1940; J2270; J3430; J3480; J7030; J7050; P9016

== ENCOUNTER 2017-01-22 08:15 | Inpatient (IN) | payer OTHER, MEDICARE ==
[~2017-01-22] VITALS: Ht 180.3 cm; Wt 74.0 kg
[2017-01-22] VITALS (12 sets, daily range): BP systolic 122–162; BP diastolic 63–73; PULSE 67–91; RESP 16–20; TEMP 97.5–98.1; O2SAT 94–100
[~2017-01-22 08:15] MED LIST changes: +CALC.25 PO; +CALC250 PO; +CHOL5000 PO; -ENOX80P SQ; +FERR325T20 PO; -GLIP5TAB8 PO; +HYDR-3799 PO; -HYDR10TA23 PO; +LOSA25TA PO; +MAGN400S PO; -OYST500T11 PO; +WARF-23 PO
[2017-01-22] MEDS ORDERED: METF1000 PO (08:32)
--- NOTE | 2017-01-22 08:50 | PD ---
HPI Chief Complaint: GI Complaint Time Seen by Provider: 08:50 Travel History International Travel<30 days: No Contact w/Intl Traveler<30days: No Traveled to known affect area: No History of Present Illness HPI 71-year-old male came to the emergency room with history of back pain that has been going on for past 1 week and constipation with the last bowel movement about 3-4 days ago. Patient says that he tried to strain at all it did was make his back pain worse. He was able to have very small stool output which looked dark in color. Patient has history of COPD. He is a smoker. He also has history of aortic graft for aortic aneurysm many years ago. No history of nausea vomiting. He looked uncomfortable. Vital signs were within acceptable limits. The back pain is dull in nature and at first started on the right side and patient says that it has moved to his right side now. Pain is 10 out of 10 and is just there. No aggravating or relieving factors identified. Patient is on Coumadin for A. fib. He says he has received blood transfusion in the past. He had a colonoscopy and upper endoscopy done 3-4 months ago and was asked to get a repeat about now. Patient has an indwelling White catheter. [facility] Past Medical History Narrative Medical List of his past medical, surgical, social and family history is reviewed from the nursing note. Hx Anticoagulant Therapy: Yes (WARFRAIN ) AAA: Yes (REPAIRED) Arthritis: No Asthma: No Atrial Fibrillation: Yes Autoimmune Disease: No Blood Disorders: No Anxiety: Yes Heart Rhythm Problems: Yes (HX OF A-FIB) Cancer: No Cardiac Catheterization: Yes (2 CARDIAC STENTS, 2 AORTA) Cardiovascular Problems: Yes (cad, stents, htn) High Cholesterol: Yes Chest Pain: Yes Congestive Heart Failure: Yes COPD: Yes Cerebrovascular Accident: No Coronary Artery Disease: Yes Diabetes: Yes Patient Takes Glucophage: Yes Diminished Hearing: No Endocrine: Yes Gastrointestinal Disorders: Yes (BLADDER STONES) GERD: No Genitourinary: Yes Hiatal Hernia: Yes Hypertension: Yes Immune Disorder: No Implanted Vascular Access Dvce: Yes Insomnia: No Kidney Stones: Yes Musculoskeletal: Yes (CHRONIC BACK PAIN) Neurologic: Yes Psychiatric: Yes Reproductive: No Respiratory: Yes (copd) Immunizations Current: Yes Migraines: No Myocardial Infarction: Yes Pancreatitis: Yes Renal Failure: Yes Seizures: No Sleep Apnea: Yes Thyroid Disease: No Ulcer: No Past Surgical History Abdominal Aneurysm Repair: Yes Abdominal Surgery: Yes (UMBILICAL HERNIA REPAIR) Body Medical Devices: STENTS Cardiac Surgery: Yes (STENTS) Coronary Stent: Yes (X2) Genitourinary Surgery: Yes Neurologic Surgery: No Oral Surgery: Yes (CYST REMOVED FROM THROAT) Thoracic Surgery: Yes (AAA REPAIR) Tonsillectomy: Yes Other Surgery: Yes Social History Alcohol Use: No Tobacco Use: Yes (1 1/2PD) Substance Use: Yes (marijuana) Allergies-Medications (Allergen,Severity, Reaction): Coded Allergies: No Known Allergies (Verified , 01/22/17) Comments No known drug allergies. Reported Meds & Prescriptions Reported Meds & Active Scripts Active Eq Milk of Magnesia (Magnesium Hydroxide) 1,200 Mg/15 Ml Gena 30 Ml PO Q12H PRN Ferosul (Ferrous Sulfate) 325 Mg Tablet 325 Mg PO DAILY Vitamin D3 (Cholecalciferol) 5,000 Unit Cap 5,000 Units PO DAILY Oyster Shell 250 mg + Vit D Tb (Calcium/Vitamin D) 250 Mg Calcium (625 Mg)-125 Unit Tablet 500 Mg PO Q12HR Rocaltrol (Calcitriol) 0.25 Mcg Cap 0.5 Mcg PO DAILY Coreg (Carvedilol) 3.125 Mg Tab 3.125 Mg PO BID Reported Metformin (Metformin HCl) 1,000 Mg Tab 1,000 Mg PO BIDPC Losartan (Losartan Potassium) 25 Mg Tab 25 Mg PO DAILY Hydralazine HCl 25 Mg Tablet 10 Mg PO TID Warfarin 5 Mg Tab 5 Mg PO Sun Warfarin 2.5 Mg Tab 2.5 Mg PO DAILY Pravastatin 40 Mg Tab 40 Mg PO DAILY Furosemide 40 Mg Tab 40 Mg PO DAILY Narrative Medication List of his home medications reviewed from the nursing note. Review of Systems Except as stated in HPI: all other systems reviewed are Neg Gastrointestinal: Positive: Abdominal Pain, Constipation Musculoskeletal: Positive: Pain (back pain all across his back) Physical Exam Narrative GENERAL: Awake, alert, moderate to significant distress, disheveled, poor hygiene SKIN: Focused skin assessment warm/dry. Poor skin hygiene, pale HEAD: Atraumatic. Normocephalic. EYES: Pupils equal and round. No scleral icterus. No injection or drainage. ENT: No nasal bleeding or discharge. Mucous membranes pink and moist. NECK: Trachea midline. No JVD. CARDIOVASCULAR: Regular rate and rhythm. No murmur appreciated. RESPIRATORY: No accessory muscle use. Clear to auscultation. Breath sounds equal bilaterally. GASTROINTESTINAL: Abdomen soft, non-tender, nondistended. Hepatic and splenic margins not palpable. Hard fecal ball in the rectum MUSCULOSKELETAL: No obvious deformities. No clubbing. No cyanosis. No edema. NEUROLOGICAL: Awake and alert. No obvious cranial nerve deficits. Motor grossly within normal limits. Normal speech. PSYCHIATRIC: Appropriate mood and affect; insight and judgment normal. Data Data Last Documented VS Orders Orders Complete Blood Count With Diff (01/22/17 09:04) Comprehensive Metabolic Panel (01/22/17 09:04) Lipase (01/22/17 09:04) Prothrombin Time / Inr (Pt) (01/22/17 09:04) Urinalysis - C+S If Indicated (01/22/17 09:04) Ct Abd/Pel W/O Iv Contrast (01/22/17 09:04) Iv Access Insert/Monitor (01/22/17 09:04) Ecg Monitoring (01/22/17 09:04) Oximetry (01/22/17 09:04) Sodium Chlor 0.9% 1000 Ml Inj (Ns 1000 M (01/22/17 09:04) Sodium Chloride 0.9% Flush (Ns Flush) (01/22/17 09:15) Electrocardiogram (01/22/17 09:04) Type And Screen (01/22/17 09:04) Red Blood Cells (Rbc) (01/22/17 09:41) Blood Product Administration (01/22/17 09:41) Sodium Chlor 0.9% 250 Ml Inj (Ns 250 Ml (01/22/17 09:45) Urine Culture (01/22/17 09:10) Sodium Chlor 0.9% 1000 Ml Inj (Ns 1000 M (01/22/17 10:00) Admit Order (Ed Use Only) (01/22/17 10:33) Labs Laboratory Tests Test 01/22/17 09:10 White Blood Count 11.9 TH/MM3 Red Blood Count 2.32 MIL/MM3 Hemoglobin 6.4 GM/DL Hematocrit 20.5 % Mean Corpuscular Volume 88.5 FL Mean Corpuscular Hemoglobin 27.7 PG Mean Corpuscular Hemoglobin Concent 31.3 % Red Cell Distribution Width 17.8 % Platelet Count 235 TH/MM3 Mean Platelet Volume 10.3 FL Neutrophils (%) (Auto) 82.6 % Lymphocytes (%) (Auto) 9.6 % Monocytes (%) (Auto) 6.2 % Eosinophils (%) (Auto) 0.9 % Basophils (%) (Auto) 0.7 % Neutrophils # (Auto) 9.8 TH/MM3 Lymphocytes # (Auto) 1.1 TH/MM3 Monocytes # (Auto) 0.7 TH/MM3 Eosinophils # (Auto) 0.1 TH/MM3 Basophils # (Auto) 0.1 TH/MM3 CBC Comment DIFF FINAL Differential Comment Prothrombin Time 43.9 SEC Prothromb Time International Ratio 3.7 RATIO Urine Color YELLOW Urine Turbidity CLOUDY Urine pH 5.5 Urine Specific [place] 1.016 Urine Protein 100 mg/dL Urine Glucose (UA) NEG mg/dL Urine Ketones NEG mg/dL Urine Occult Blood SMALL Urine Nitrite POS Urine Bilirubin NEG Urine Urobilinogen LESS THAN 2.0 MG/DL Urine Leukocyte Esterase LARGE Urine RBC 32 /hpf Urine WBC /hpf Urine WBC Clumps MANY Urine Amorphous Sediment RARE Urine Bacteria MANY /hpf Urine Yeast with Hyphae MANY Urine Yeast (Budding) MANY Microscopic Urinalysis Comment CULTURE INDICATED Blood Urea Nitrogen 40 MG/DL Creatinine 1.66 MG/DL Random Glucose 137 MG/DL Total Protein 6.1 GM/DL Albumin 1.9 GM/DL Calcium Level 8.0 MG/DL Alkaline Phosphatase 127 U/L Aspartate Amino Transf (AST/SGOT) 14 U/L Alanine Aminotransferase (ALT/SGPT) 17 U/L Total Bilirubin 0.1 MG/DL Sodium Level 139 MEQ/L Potassium Level 4.2 MEQ/L Chloride Level 111 MEQ/L Carbon Dioxide Level 17.6 MEQ/L Anion Gap 10 MEQ/L Estimat Glomerular Filtration Rate 41 ML/MIN Lipase 25 U/L MDM Medical Decision Making Medical Screen Exam Complete: Yes Emergency Medical Condition: Yes Medical Record Reviewed: Yes Interpretation(s) Twelve-lead EKG was reviewed by me. Normal sinus rhythm, left axis deviation, nonspecific ST-T wave changes. Heart rate of 85 bpm. Differential Diagnosis Upper GI bleed, lower GI bleed, constipation, aortic aneurysm leak Narrative Course 9:47 AM awaiting for the chemistry to come back. H&H is significantly low and I have ordered for blood transfusion 2 units. INR is slightly elevated. Patient will require to be admitted. I will put a call out for GI as well. UA is positive. However patient has an indwelling White catheter and this could be colonization. He does not have fever or any other signs of infection including elevated white blood cell count. I have chosen not to start him on antibiotic till the culture result is back. 10:21 AM GI called back and I spoke with him and have asked them to consult on the patient. Still waiting for the CT scan to be read. 11:[address] scan report just came back and shows some hemorrhage into the right kidney cortex in the midpole. I put a page out to the urologist. This would explain the back pain that the patient is having. I would update the hospitalist about this finding as well. Critical Care Narrative Aggregate critical care time was 30 minutes. Time to perform other separately billable procedures was not included in the critical care time. My time did not include minutes spent treating any other patients simultaneously or on activities that did not directly contribute to the patient's treatment. The services I provided to this patient were to treat and/or prevent clinically significant deterioration that could result in: Symptomatic anemia, blood transfusion I provided critical care services requiring my management, as noted below: Chart data review, documentation time, medication orders and management, vital sign assessments/reviewing monitor data, ordering and reviewing lab tests, ordering and interpreting/reviewing x-rays and diagnostic studies, care of the patient and discussion of the patient with the admitting physicians. Procedures EKG Prior to Arrival: No HemaPrompt Point of Care Internal Pos. & Neg. Controls: Passed Fecal Specimen Occult Blood: Positive Physician Communication Physician Communication Dr. Feldman Diagnosis Primary Impression: GI bleed Qualified Codes: K92.2 - Gastrointestinal hemorrhage, unspecified Additional Impressions: Constipation Qualified Codes: K59.00 - Constipation, unspecified Symptomatic anemia Jazmine Sarah MD Jan 22, 2017 08:50
[2017-01-22] MEDS ORDERED: SODIUM CHLOR 0.9% 1000 ML INJ 1,000 ML IV SCH (09:04)
[2017-01-22] MEDS ORDERED: SODIUM CHLORIDE 0.9% FLUSH 10 ML FLUSH IV FLUSH PRN ×2 (09:15→10:45)
[2017-01-22 09:30] LABS: AUTOMATED NEUTROPHIL # 9.8 TH/MM3 (1.8-7.7); BASOPHIL # 0.1 TH/MM3 (0-0.2); BASOPHIL % 0.7 % (0.0-2.0); EOSINOPHIL # 0.1 TH/MM3 (0-0.4); EOSINOPHIL % 0.9 % (0.0-4.0); LYMPH % 9.6 % (9.0-44.0); LYMPHOCYTE # 1.1 TH/MM3 (1.0-4.8); MEAN CELL VOLUME 88.5 FL (80.0-100.0); MEAN CORPUSCULAR HEMOGLOBIN 27.7 PG (27.0-34.0); MEAN CORPUSCULAR HGB CONC 31.3 % (32.0-36.0); MONO % 6.2 % (0.0-8.0); NEUT % 82.6 % (16.0-70.0); PLATELET COUNT 235 TH/MM3 (150-450); RED BLOOD COUNT 2.32 MIL/MM3 (4.50-5.90); RED CELL DISTRIBUTION WIDTH 17.8 % (11.6-17.2); WHITE BLOOD COUNT 11.9 TH/MM3 (4.0-11.0)
[2017-01-22 09:36] LABS: HEMO FLAGS DIFF FINAL
[2017-01-22 09:37] LABS: INTERNATIONAL NORMALIZED RATIO 3.7 RATIO; PROTHROMBIN TIME - PATIENT 43.9 SEC (9.8-11.6)
[2017-01-22 09:39] LABS: HEMATOCRIT 20.5 % (39.0-51.0)
[2017-01-22] MEDS ORDERED: SODIUM CHLOR 0.9% 250 ML INJ 250 ML IV ONE (09:45)
[2017-01-22 09:47] LABS: BACTERIA, URINE MANY /hpf; BLOOD, URINE SMALL (NEG); COMMENT (UR) CULTURE INDICATED; CULTURE IF INDICATED CULTURE INDICATED; GLUCOSE,URINE NEG (NEG); KETONE, URINE NEG (NEG); NITRITE,URINE POS (NEG); PH, URINE 5.5 (5.0-8.5); URINE COLOR YELLOW (YELLW/STRAW)
[2017-01-22 09:49] LABS: ANION GAP 10 MEQ/L (5-15); AST (GOT) 14 U/L (15-37); BICARBONATE 17.6 MEQ/L (21.0-32.0); BLOOD UREA NITROGEN 40 MG/DL (7-18); CHLORIDE 111 MEQ/L (98-107); GLOMERULAR FILTRATION RATE 41 ML/MIN (>89); POTASSIUM 4.2 MEQ/L (3.5-5.1); SODIUM (NA) 139 MEQ/L (136-145)
[2017-01-22 09:50] LABS: ALT (GPT) 17 U/L (12-78)
[2017-01-22 09:52] LABS: ALKALINE PHOSPHATASE 127 U/L (45-117); TOTAL BILIRUBIN ADULT 0.1 MG/DL (0.2-1.0)
[2017-01-22] MEDS ORDERED: SODIUM CHLOR 0.9% 1000 ML INJ 1,000 ML IV ONE (10:00)
--- NOTE | 2017-01-22 10:39 | RADRPT ---
EXAM DATE/TIME: 01/22/2017 09:53 [facility] COMPARISON: CT ABDOMEN & PELVIS W/O CONTRAST, November 19, 2016, 22:45. INDICATIONS : Patient complains of low back pain and constipation ORAL CONTRAST: No oral contrast ingested. RADIATION DOSE: 7.20 CTDIvol (mGy) MEDICAL HISTORY : Cardiovascular disease. Hypertension. Hernia, hiatal. SURGICAL HISTORY : Umbilical hernia repair. ENCOUNTER: Initial ACUITY: 1 day PAIN SCALE: 10/10 LOCATION: Bilateral lower back TECHNIQUE: Volumetric scanning of the abdomen and pelvis was performed. Using automated exposure control and ad justment of the mA and/or kV according to patient size, radiation dose was kept as low as reasonably achievable to obtain optimal diagnostic quality images. DICOM format image data is available electro nically for review and comparison. FINDINGS: LOWER LUNGS: Mild right basilar consolidation likely related to atelectasis. Left lung base is clear. Significant coronary artery atherosclerotic calcifications. LIVER: Homogeneous density without lesion. There is no dilation of the biliary tree. No calcified gallston es. SPLEEN: Normal size without lesion. PANCREAS: Multiple parenchymal calcifications throughout an atrophic gland. No ductal dilatation. No stranding. KIDNEYS: There is a new 6.5 cm retroperitoneal hematoma abutting the posterior lateral aspect of the right kid david. This obscures a previously seen low-density cortical lesion. I am unsure if this hematoma relate s to spontaneous hemorrhage within that lesion. Multiple low density lesions are seen involving both kidneys most consistent with cysts. No hydronephrosis. ADRENAL GLANDS: Within normal limits. VASCULAR: There is a fenestrated endograft observed. Stents are seen involving both renal arteries as well as t he SMA and celiac. BOWEL/MESENTERY: The stomach, small bowel, and colon demonstrate no acute abnormality. There is no free intraperitone al air or fluid. ABDOMINAL WALL: Within normal limits. RETROPERITONEUM: There is no lymphadenopathy. BLADDER: There is a White balloon present in the urinary bladder decompressed. A solitary stone is seen measur ing 1.6 cm. The prostate gland is enlarged without discrete mass. REPRODUCTIVE: Within normal limits. INGUINAL: A small left inguinal hernia containing fat. MUSCULOSKELETAL: A degenerative lumbar spine. CONCLUSION: 1. Spontaneous hemorrhage involving the right mid pole kidney measuring 6.5 cm in size. This obscures the previously seen cortical based lesion. I am unsure of this hemorrhage relates to spontaneous hem orrhage within that lesion. A followup MRI of the kidneys with and without gadolinium is suggested fo llowing resolution of the hemorrhage to better evaluate that lesion. 2. Right basilar atelectasis. 3. Fenestrated endograft. 4. Chronic pancreatitis. 5. 1.6 cm bladder stone. Blaze Del Valle Jr., MD on January 22, 2017 at 10:30 Board Certified Radiologist. This report was verified electronically.
[2017-01-22] MEDS ORDERED: ACETAMINOPHEN 325 MG TAB PO PRN (10:45)
[2017-01-22] MEDS ORDERED: MAGNESIUM HYDROXIDE SUSP 30 ML CUP PO PRN ×2 (10:45)
[2017-01-22] MEDS ORDERED: SENNOSIDES 8.6 MG TAB PO PRN (10:45)
[2017-01-22] MEDS ORDERED: NALOXONE HCL 0.4 MG/ML AMP IV PUSH PRN (10:45)
[2017-01-22] MEDS ORDERED: GLUCAGON 1 MG/ML VIAL OTHER PRN (10:45)
[2017-01-22] MEDS ORDERED: ONDANSETRON HCL 4 MG/2 ML VIAL IVP PRN (10:45)
[2017-01-22] MEDS ORDERED: BISACODYL 10 MG SUPP RECTAL PRN (10:45)
[2017-01-22] MEDS ORDERED: LACTULOSE SYRUP 20 GM/30 ML CUP PO PRN (10:45)
[2017-01-22] MEDS ORDERED: DEXTROSE 50% IN WATER 50 ML VIAL(D50) IV PUSH PRN (10:45)
[2017-01-22] MEDS: INSULIN ASPART SUPPLEMENTAL SCALE SQ SCH ×3 (12:00→20:42)
--- NOTE | 2017-01-22 12:19 | PD.CONS ---
HPI History of Present Illness This is a 71 year old male with a history of anemia, chronic diarrhea, multiple adenomatous colon polyps, and pancreatitis who presented to the emergency room for evaluation of back pain and change in bowel habits with severe constipation. He reports that he has been having severe lower back pain, more on the left side x 1 week with associated cramping in his back. He reports during this same time, he was not able to move his bowels. He does not usually have any issues with constipation. In fact, he reports that he usually has chronic diarrhea. He took some milk of magnesia without any results and ended up taking a fleets enema yesterday. He had a hard formed dark bowel movement after the enema. He had nausea and felt like he was going to pass out while he was straining to move his bowels, but this resolved after moving his bowels. He does note that his stools have been a dark brown since his last colonoscopy. He has intermittent heartburn and reflux. He had some lower abdominal cramping associated with bloating/constipation, but has not had this today. He has not seen any rectal bleeding and has not had any hematemesis. He denies any new medications or use of NSAIDs. He does not drink ETOH. He is on coumadin for afib and last took this last night. He was recently hospitalized in November for anemia and chronic diarrhea and evaluated with EGD/Colonoscopy ()----> nodular duodenitis, multiple colon polyps-especially in cecum, ascending, and transverse colon, unable to get good positioning to remove all the polyps. Cecal and ascending colon polyps removed, they were big but not worrisome for malignancy. At this point I would be concerned about high-grade dysplasia because of the length of the procedure I opted to stop at this point so as to await for pathology and then make a decision regarding further colonoscopies versus right hemicolectomy the rest of the colon appeared to be unremarkable for the most part. Pathology of small intestine duodenal mucosa with foveolar metaplasia, adenomatous polyps and tubulovillous adenomas, multiple fragments. (Jazz Mejia) PFSH Past Medical History Hyperlipidemia Tubulovillous colon polyps Esophagitis Duodenitis CAD, S/P PCI, stent Hyperlipidemia A. fib on Coumadin Anxiety COPD CHF AAA Repair CKD Chronic Back Pain DM Chronic pancreatitis Chronic diarrhea Anemia Gastritis, duodenitis Duodenal tubular adenoma Adenomatous/tubulovillous colon polyps Duodenal AVMs Past Surgical History EGD Colonoscopy Hernia Repair Cardiac Stent AAA Repair Tonsillectomy (Jazz Mejia) Coded Allergies: No Known Allergies (Verified , 01/22/17) Medications Allergies Coded Allergies Type Severity Reaction Last Updated Verified No Known Allergies 11/19/16 Yes Active Scripts Medications Dose Route/Sig Max Daily Dose Days Date Category Metformin (Metformin HCl) 1,000 Mg Tab 1,000 Mg PO BIDPC 01/22/17 Reported Eq Milk of Magnesia (Magnesium Hydroxide) 1,200 Mg/15 Ml Gena 30 Ml PO Q12H PRN 11/25/16 Rx Ferosul (Ferrous Sulfate) 325 Mg Tablet 325 Mg PO DAILY 11/25/16 Rx Vitamin D3 (Cholecalciferol) 5,000 Unit Cap 5,000 Units PO DAILY 11/25/16 Rx Oyster Shell 250 mg + Vit D Tb (Calcium/Vitamin D) 250 Mg Calcium (625 Mg)-125 Unit Tablet 500 Mg PO Q12HR 11/25/16 Rx Rocaltrol (Calcitriol) 0.25 Mcg Cap 0.5 Mcg PO DAILY 11/25/16 Rx Losartan (Losartan Potassium) 25 Mg Tab 25 Mg PO DAILY 11/19/16 Reported Hydralazine HCl 25 Mg Tablet 10 Mg PO TID 11/19/16 Reported Warfarin 5 Mg Tab 5 Mg PO Sun11/19/16 Reported Coreg (Carvedilol) 3.125 Mg Tab 3.125 Mg PO BID 02/10/16 Rx Warfarin 2.5 Mg Tab 2.5 Mg PO DAILY 02/06/16 Reported Pravastatin 40 Mg Tab 40 Mg PO DAILY 02/06/16 Reported Furosemide 40 Mg Tab 40 Mg PO DAILY 02/06/16 Reported Family History Noncontributory Social History Smokes 1/4 PPD x 50 years Former occasional etoh use No illicit drugs (Jazz Mejia) Review of Systems Constitutional: COMPLAINS OF: Diaphoretic episodes, Fatigue, Weight loss (150 lb weight loss over 3-4 years. ), Dizziness Respiratory: COMPLAINS OF: Cough, Shortness of breath Gastrointestinal: COMPLAINS OF: Abdominal pain, Constipation, Nausea, DENIES: Black stools, Bloody stools, Diarrhea, Vomiting, Anorexia, Swelling of Abdomen, Hematemesis Musculoskeletal: COMPLAINS OF: Back pain Hematologic/lymphatic: DENIES: Bruising Neurologic: DENIES: Headache Psychiatric: DENIES: Confusion (Jazz Mejia SARAH) GI Exam Vitals I&O Vital Signs Date Time Temp Pulse Resp B/P (MAP) Pulse Ox O2 Delivery O2 Flow Rate FiO2 01/22/17 11:47 98.0 87 18 156/71 100 01/22/17 11:33 97.9 76 17 130/66 100 01/22/17 11:13 100 2.00 01/22/17 10:42 74 16 132/73 (92) 99 Nasal Cannula 2.00 01/22/17 09:35 74 16 127/63 (84) 97 Nasal Cannula 2.00 01/22/17 08:20 97.6 91 18 122/64 (83) 94 I/O 01/21/17 01/21/17 01/21/17 01/22/17 01/22/17 01/22/17 07:00 15:00 23:00 07:00 15:00 23:00 Intake Total 2002 ml Balance 2002 ml Intake IV Total 2000 ml Blood Product IV Normal Saline Flush 2 ml Imaging Last Impressions Abdomen/Pelvis CT 01/22/17 0904 Signed Impressions: Service Date/Time: Sunday, January 22, 2017 09:53 - CONCLUSION: 1. Spontaneous hemorrhage involving the right mid pole kidney measuring 6.5 cm in size. This obscures the previously seen cortical based lesion. I am unsure of this hemorrhage relates to spontaneous hemorrhage within that lesion. A followup MRI of the kidneys with and without gadolinium is suggested following resolution of the hemorrhage to better evaluate that lesion. 2. Right basilar atelectasis. 3. Fenestrated endograft. 4. Chronic pancreatitis. 5. 1.6 cm bladder stone. Blaze Del Valle Jr., MD Laboratory Test 01/22/17 09:10 White Blood Count 11.9 TH/MM3 Red Blood Count 2.32 MIL/MM3 Hemoglobin 6.4 GM/DL Hematocrit 20.5 % Mean Corpuscular Volume 88.5 FL Mean Corpuscular Hemoglobin 27.7 PG Mean Corpuscular Hemoglobin Concent 31.3 % Red Cell Distribution Width 17.8 % Platelet Count 235 TH/MM3 Mean Platelet Volume 10.3 FL Neutrophils (%) (Auto) 82.6 % Lymphocytes (%) (Auto) 9.6 % Monocytes (%) (Auto) 6.2 % Eosinophils (%) (Auto) 0.9 % Basophils (%) (Auto) 0.7 % Neutrophils # (Auto) 9.8 TH/MM3 Lymphocytes # (Auto) 1.1 TH/MM3 Monocytes # (Auto) 0.7 TH/MM3 Eosinophils # (Auto) 0.1 TH/MM3 Basophils # (Auto) 0.1 TH/MM3 CBC Comment DIFF FINAL Differential Comment Prothrombin Time 43.9 SEC Prothromb Time International Ratio 3.7 RATIO Urine Color YELLOW Urine Turbidity CLOUDY Urine pH 5.5 Urine Specific [place] 1.016 Urine Protein 100 mg/dL Urine Glucose (UA) NEG mg/dL Urine Ketones NEG mg/dL Urine Occult Blood SMALL Urine Nitrite POS Urine Bilirubin NEG Urine Urobilinogen LESS THAN 2.0 MG/DL Urine Leukocyte Esterase LARGE Urine RBC 32 /hpf Urine WBC /hpf Urine WBC Clumps MANY Urine Amorphous Sediment RARE Urine Bacteria MANY /hpf Urine Yeast with Hyphae MANY Urine Yeast (Budding) MANY Microscopic Urinalysis Comment CULTURE INDICATED Blood Urea Nitrogen 40 MG/DL Creatinine 1.66 MG/DL Random Glucose 137 MG/DL Total Protein 6.1 GM/DL Albumin 1.9 GM/DL Calcium Level 8.0 MG/DL Alkaline Phosphatase 127 U/L Aspartate Amino Transf (AST/SGOT) 14 U/L Alanine Aminotransferase (ALT/SGPT) 17 U/L Total Bilirubin 0.1 MG/DL Sodium Level 139 MEQ/L Potassium Level 4.2 MEQ/L Chloride Level 111 MEQ/L Carbon Dioxide Level 17.6 MEQ/L Anion Gap 10 MEQ/L Estimat Glomerular Filtration Rate 41 ML/MIN Lipase 25 U/L Date/Time Source Procedure Growth Status 01/22/17 09:10 Urine Clean Catch Urine Culture Pending Received Physical Examination HEENT: Normocephalic; atraumatic; no jaundice. CHEST: CTA CARDIAC: Irregular. ABDOMEN: Soft, nondistended, nontender; no hepatosplenomegaly; bowel sounds are present in all four quadrants. Umbilical hernia EXTREMITIES: No clubbing, cyanosis, or edema. SKIN: Normal; no rash; no jaundice. CONCRETE POLISHER: No focal deficits; alert and oriented times three. (Jazz Mejia) Assessment and Plan Plan ASSESSMENT: - Severe anemia. S/P EGD/Colonoscopy (11/23/16)----> nodular duodenitis, multiple colon polyps-especially in cecum, ascending, and transverse colon, unable to get good positioning to remove all the polyps. Cecal and ascending colon polyps removed, they were big but not worrisome for malignancy. At this point I would be concerned about high-grade dysplasia because of the length of the procedure I opted to stop at this point so as to await for pathology and then make a decision regarding further colonoscopies versus right hemicolectomy the rest of the colon appeared to be unremarkable for the most part. Pathology of small intestine duodenal mucosa with foveolar metaplasia, adenomatous polyps and tubulovillous adenomas, multiple fragments. Reports dark brown stool, no hematemesis and no rectal bleeding. CT scan abdomen and pelvis (01/22/17)----> Spontaneous hemorrhage involving the right mid pole kidney measuring 6.5 cm in size. This obscures the previously seen cortical based lesion. I am unsure if this hemorrhage relates to spontaneous hemorrhage within that lesion. A followup MRI of the kidneys with and without gadolinium is suggested following resolution of the hemorrhage to better evaluate that lesion. 2. Right basilar atelectasis. 3. Fenestrated endograft. 4 Chronic pancreatitis. 5. 1.6 bladder stone. HH 6.4/20.5. This is most likely related to renal hemorrhage. - Change in stool with constipation. One week hx of back pain with constipation. - ASUNCION with ckd. Creat. 1.66. - Right kidney hemorrhage on CT scan. INR 3.7 (last had coumadin last night) - Back pain (right sided), ? r/t right kidney - Hx colon polyps, Colonoscopy as above. pathology adenomatous polyps and tubulovillous adenomas, multiple fragments. - Hx esophagitis, duodenal avms. PPI - Chronic pancreatitis. Stable. - Atrial fibrillation on coumadin. INR 3.7. - Hyperlipidemia, CAD, S/P PCI, stent, COPD, CHF, DM PLAN: - Clear liquids - Recommending correcting coagulopathy- defer to attending - Monitor HH - Transfuse as necessary - CBC/CMP - Will need right kidney spontaneous hemorrage stabilized/addressed prior to any GI workup. - Supportive care - Further recommendations to follow based on results of above - Pt seen and examined by Dr. Feldman and myself and this note is written on his behalf (Mejia,Jazz Nathalie TYPEWRITER ALIGNER) Physician Comments Patient seen and examined Agree with above Continue with current supportive care Monitor labs At this point no active GI bleed and the anemia is secondary to renal hemorrhaging But because of the patient's history of large colon polyps we will would recommend a colonoscopy prior to discharge especially knowing that most likely he will be off of Coumadin because of his renal hemorrhaging We will continue to monitor (Phuc Feldman MD) Jazz Mejia Jan 22, 2017 12:19 Phuc Feldman MD Jan 22, 2017 21:08
[2017-01-22] MEDS ORDERED: PROTHROMBIN COMPLEX CONC INJ 2,000 UNITS in SYRINGE/BAG 1 EA IV ONE (12:30)
--- NOTE | 2017-01-22 12:41 | PD.PN.STU ---
Subjective Remarks CC: low back pain HPI: Pt is a 71yo M with a history of atrial fibrillation, AAA, anxiety, DM with neuropathy and retinopathy, hypercholesterolemia, tobacco use, and COPD who presented in the ER today due to lower back pain that's been present for the past 2 weeks. Pt reports feeling tired and will with decreased appetite around 3-4weeks ago. Several weeks ago he noticed constipation, pain on defecation, and "very dark brown/maroon stools". He has been using an OTC enema for the constipation and reports having 2 BM/ week. About 2wks ago he began to experience right sided pain that radiated to the left side about 2-3d ago. He rates the pain at a 7 and at a 9 at its maximum and describes it as burning, dull, and constant "like a toothache". He believes that lying down alleviates the pain and that moving in certain positions aggravate the pain. He denies any history of back injuries, recent accidents, fall, or trauma to the affected area. Pt reports that about 3mo ago he went to a doctor and had an upper and lower endoscopy performed. He also mentioned that he received 2units of blood at that time, but does not recall why. Of note, pt reports that about 3-4yrs ago when he went to [facility] to receive his abdominal aortic stent, "The [facility] doctor told me I had left kidney cancer, but the [place] next door told me they were cysts". He denies following up afterwards. Reports weight loss, decreased appetite, nausea, cough, abdominal pain he attributes to gas, constipation, pain on defecation, low back pain, and neuropathic leg pain from his diabetes. Denies AMBROCIO, CP seizures, recent changes in vision, SOB, vomiting, fever, chills, leg swelling, urinary and bowel incontinence, dysuria, bruising or redness in the affected area. PMH: atrial fibrillation with last dose of warfarin was last night (2.5mg, current dosing is 5mg on ), AAA, anxiety, CAD, hypercholesterolemia, CHF, COPD, DM with neuropathy and retinopathy, kidney stones (rt side), pancreatitis , renal failure, sleep apnea, multiple colonic polyps. PSH: colonoscopy (11/23) cardiac cathx2, umbilical hernia repair with mesh, cyst removal from throat, tonsillectomy FH: mother from an [place] at 60yo. no relationship with father, brothers , sisters. SH: reports tobacco use 1 1/2ppd for over 60yrs. reports drinking alcohol socially, last drink was 1mo ago. Reports occasional marijuana use. Allergies: NKDA Objective Vitals Vital Signs Date Time Temp Pulse Resp B/P (MAP) Pulse Ox O2 Delivery O2 Flow Rate FiO2 01/22/17 11:47 98.0 87 18 156/71 100 01/22/17 11:33 97.9 76 17 130/66 100 01/22/17 11:13 100 2.00 01/22/17 10:42 74 16 132/73 (92) 99 Nasal Cannula 2.00 01/22/17 09:35 74 16 127/63 (84) 97 Nasal Cannula 2.00 01/22/17 08:20 97.6 91 18 122/64 (83) 94 I/O 01/21/17 01/21/17 01/21/17 01/22/17 01/22/17 01/22/17 07:00 15:00 23:00 07:00 15:00 23:00 Intake Total 2002 ml Balance 2001 ml Intake IV Total 2000 ml Blood Product IV Normal Saline Flush 2 ml Result Diagram: 01/22/17 0910 01/22/17 0910 Other Results Laboratory Tests Test 01/22/17 09:10 White Blood Count 11.9 TH/MM3 (4.0-11.0) Red Blood Count 2.32 MIL/MM3 (4.50-5.90) Hemoglobin 6.4 GM/DL (13.0-17.0) Hematocrit 20.5 % (39.0-51.0) Mean Corpuscular Hemoglobin Concent 31.3 % (32.0-36.0) Red Cell Distribution Width 17.8 % (11.6-17.2) Neutrophils (%) (Auto) 82.6 % (16.0-70.0) Neutrophils # (Auto) 9.8 TH/MM3 (1.8-7.7) Prothrombin Time 43.9 SEC (9.8-11.6) Urine Turbidity CLOUDY (CLEAR) Urine Protein 100 mg/dL (NEG-TRACE) Urine Occult Blood SMALL (NEG) Urine Nitrite POS (NEG) Urine Leukocyte Esterase LARGE (NEG) Urine RBC 32 /hpf (0-3) Urine WBC Clumps MANY (NONE) Urine Bacteria MANY /hpf (NONE) Urine Yeast with Hyphae MANY (NONE) Urine Yeast (Budding) MANY (NONE) Blood Urea Nitrogen 40 MG/DL (7-18) Creatinine 1.66 MG/DL (0.60-1.30) Random Glucose 137 MG/DL (74-106) Total Protein 6.1 GM/DL (6.4-8.2) Albumin 1.9 GM/DL (3.4-5.0) Calcium Level 8.0 MG/DL (8.5-10.1) Alkaline Phosphatase 127 U/L (45-117) Aspartate Amino Transf (AST/SGOT) 14 U/L (15-37) Total Bilirubin 0.1 MG/DL (0.2-1.0) Chloride Level 111 MEQ/L (98-107) Carbon Dioxide Level 17.6 MEQ/L (21.0-32.0) Estimat Glomerular Filtration Rate 41 ML/MIN (>89) Lipase 25 U/L (73-393) Imaging Last Impressions Abdomen/Pelvis CT 01/22/17 0904 Signed Impressions: Service Date/Time: Sunday, January 22, 2017 09:53 - CONCLUSION: 1. Spontaneous hemorrhage involving the right mid pole kidney measuring 6.5 cm in size. This obscures the previously seen cortical based lesion. I am unsure of this hemorrhage relates to spontaneous hemorrhage within that lesion. A followup MRI of the kidneys with and without gadolinium is suggested following resolution of the hemorrhage to better evaluate that lesion. 2. Right basilar atelectasis. 3. Fenestrated endograft. 4. Chronic pancreatitis. 5. 1.6 cm bladder stone. Blaze Del Valle Jr., MD Objective Remarks GENERAL: pleasant, disheveled, frail male who was in NAD SKIN: Pale, warm and dry HEAD: Atraumatic. Normocephalic. Mild temporal wasting. EYES: Pupils equal and round. EOMI. No scleral icterus. No injection or drainage. ENT: No nasal bleeding or discharge. Mucous membranes slightly dry. NECK: Trachea midline. No JVD. CARDIOVASCULAR: Regular rate and rhythm. S1 and S2 heard, no murmurs, gallops, rubs. RESPIRATORY: No accessory muscle use. Decreased breath sounds with ronchi and wheezing heard bilaterally. GASTROINTESTINAL: Bowel sounds heard in all 4 quadrants. No bruits. Abdomen soft , non-tender, nondistended. No rebound or guarding. Hepatic and splenic margins not palpable. MUSCULOSKELETAL: Presence of protruding mesh from prior umbilical hernia repair , nontender, nonerythematous. Able to move all 4 extremities with no difficulty. No clubbing, cyanosis, or edema. No obvious deformities. No calf tenderness, No pain on dorsiflexion bilaterally. NEUROLOGICAL: Awake and alert. No obvious cranial nerve deficits. Motor grossly within normal limits. 5/ 5 muscle strength in the arms, 4/5 muscle strength in the legs. Normal speech. PSYCHIATRIC: labile mood and affect; insight and judgment normal. Medications and IVs Current Medications Medications (Trade) Dose Ordered Sig/Ana Route Start Time Stop Time Status Last Admin Sodium Chloride 250 ml @ 15 mls/hr ONCE ONCE IV 01/22/17 09:45 01/23/17 02:24 Sodium Chloride 1,000 ml @ 75 mls/hr [id number] IV 01/22/17 10:37 (NS Flush) 2 ml UNSCH PRN IV FLUSH 01/22/17 10:45 (NS Flush) 2 ml BID IV FLUSH 01/22/17 21:00 (Tylenol) 650 mg Q4H PRN PO 01/22/17 10:45 (Zofran Inj) 4 mg Q6H PRN IVP 01/22/17 10:45 (Narcan Inj) 0.4 mg UNSCH PRN IV PUSH 01/22/17 10:45 (Valerie-Colace) 1 tab BID PO 01/22/17 21:00 (Milk Of Magnesia Liq) 30 ml Q12H PRN PO 01/22/17 10:45 (Senokot) 17.2 mg Q12H PRN PO 01/22/17 10:45 (Dulcolax Supp) 10 mg DAILY PRN RECTAL 01/22/17 10:45 (Lactulose Liq) 30 ml DAILY PRN PO 01/22/17 10:45 (Rocaltrol) 0.5 mcg DAILY PO 01/23/17 09:00 (Coreg) 3.125 mg BID PO 01/22/17 21:00 (Vitamin D3) 5,000 units DAILY PO 01/23/17 09:00 (Ferrous Sulfate) 325 mg DAILY PO 01/23/17 09:00 (Apresoline) 10 mg TID PO 01/22/17 13:00 (Cozaar) 25 mg DAILY PO 01/23/17 09:00 (Pravachol) 40 mg DAILY PO 01/23/17 09:00 (D50w (Vial) Inj) 50 ml UNSCH PRN IV PUSH 01/22/17 10:45 (Glucagon Inj) 1 mg UNSCH PRN OTHER 01/22/17 10:45 (NovoLOG SUPPLEMENTAL SCALE) 1 ACHS SLIDING SCALE SQ 01/22/17 12:00 Prothrombin Complex Concent (Human) 2000 units/Syringe / Bag 0 ml @ 500 mls/hr ONCE ONCE IV 01/22/17 12:30 01/22/17 12:31 UNV A/P Assessment and Plan Right Kidney Hemorrhage CT abdomen showed spontaneous hemorrhage involving the right mid pole kidney measuring 6.5 cm in size. Radiology recommends an MRI of the kidneys with and without gadolinium for better evaluation Urology consulted pain management Bladder Stone CT abdomen showed bladder stone measuring 1.61cm urology following GI Bleed- etiology unknown at this time poss secondary to right kidney hemorrhage vs colonic polyps last colonoscopy performed 11/2016 showed multiple colonic polyps 2 units of pRBC ordered Pt is anticoagulated on warfarin for afib. INR is 3.7, will give Prothrombin complex to reverse INR, pt has active bleeding cont IVF NPO GI consulted for positive fecal occult blood monitor labs Anemia- etiology unknown at this time 2 units of pRBC ordered on iron supplementation before admission GI consulted for positive fecal occult blood monitor labs Nausea on zofran Constipation cont IVF and current laxatives Chronic Kidney Disease BUN and Cr levels appears at baseline at this time on IVF monitor renal function Hypertension on carvedilol, hydralazine, losartan hold BP meds if SBP<110 Hyperlipidemia on pravastatin Diabetes Mellitus with neuropathy and retinopathy on glypizide at home SSI daily accuchecks Tobacco Use- counseling regarding tobacco cessation refusing nicotine patch at this time monitor for withdrawal symptoms can give ativan if withdrawal symptoms occur Severe protein calorie malnutrition albumin 1.9 total protein 6.1 muscle atrophy, bitemporal wasting, UE & LE wasting weak handgrip add ensure consult metal 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 Agree with above. Maria T Gutierres M3 Jan 22, 2017 12:41 Mara Loving MD Jan 22, 2017 17:21
[2017-01-22] MEDS: hydrALAZINE HCL 10 MG TAB PO SCH ×2 (13:52→17:58)
--- NOTE | 2017-01-22 16:13 | PD.CONS ---
HPI Service Urology Consult Requested By Reason for Consult Renal hematoma Primary Care Physician [facility] Diagnosis: History of Present Illness 71yo male with history of CAD with cardiac stents on Coumadin, CHF, HTN, DM, CKD , COPD, and AAA repair seen in consultation for right renal hemorrhage with hematoma. Patient presented to the ED with right flank pain and Hgb of 6. CT scan identified a right posterior renal hemorrhage with hematoma formation. Cause if unclear, with underlying lesion a possibility. Patient's INR is also elevated above 3.7. Patient reports he has been living with a catheter for over 7 yrs. He currently reports right flank pain, radiating to the left side, no hematuria. Patient also has significant GI history with constipation and dark stools. No fevers. Review of Systems ROS Limitations: Clinical Condition Constitutional: DENIES: Fever Eyes: DENIES: Blurred vision Ears, nose, mouth, throat: DENIES: Hearing loss Respiratory: DENIES: Cough Cardiovascular: DENIES: Chest pain Gastrointestinal: COMPLAINS OF: Abdominal pain, Black stools, Bloody stools, Constipation Genitourinary: DENIES: Hematuria Musculoskeletal: COMPLAINS OF: Back pain Hematologic/lymphatic: DENIES: Bruising Immunologic/allergic: DENIES: Eczema Neurologic: DENIES: Abnormal gait, Headache Psychiatric: DENIES: Anxiety Except as stated in HPI: all other systems reviewed are Neg Past Family Social History Past Medical History Hyperlipidemia Tubulovillous colon polyps Esophagitis Duodenitis CAD, S/P PCI, stent Hyperlipidemia A. fib on Coumadin Anxiety COPD CHF AAA Repair CKD Chronic Back Pain DM Chronic pancreatitis Chronic diarrhea Anemia Gastritis, duodenitis Duodenal tubular adenoma Adenomatous/tubulovillous colon polyps Duodenal AVMs Past Surgical History EGD Colonoscopy Hernia Repair Cardiac Stent AAA Repair Tonsillectomy Reported Medications Reported Meds & Active Scripts Active Eq Milk of Magnesia (Magnesium Hydroxide) 1,200 Mg/15 Ml Gena 30 Ml PO Q12H PRN Ferosul (Ferrous Sulfate) 325 Mg Tablet 325 Mg PO DAILY Vitamin D3 (Cholecalciferol) 5,000 Unit Cap 5,000 Units PO DAILY Oyster Shell 250 mg + Vit D Tb (Calcium/Vitamin D) 250 Mg Calcium (625 Mg)-125 Unit Tablet 500 Mg PO Q12HR Rocaltrol (Calcitriol) 0.25 Mcg Cap 0.5 Mcg PO DAILY Coreg (Carvedilol) 3.125 Mg Tab 3.125 Mg PO BID Reported Metformin (Metformin HCl) 1,000 Mg Tab 1,000 Mg PO BIDPC Losartan (Losartan Potassium) 25 Mg Tab 25 Mg PO DAILY Hydralazine HCl 25 Mg Tablet 10 Mg PO TID Warfarin 5 Mg Tab 5 Mg PO Sun Warfarin 2.5 Mg Tab 2.5 Mg PO DAILY Pravastatin 40 Mg Tab 40 Mg PO DAILY Furosemide 40 Mg Tab 40 Mg PO DAILY Allergies: Coded Allergies: No Known Allergies (Verified , 01/22/17) Active Ordered Medications Current Medications Medications (Trade) Dose Ordered Sig/Ana Route Start Time Stop Time Status Last Admin Sodium Chloride 250 ml @ 15 mls/hr ONCE ONCE IV 01/22/17 09:45 01/23/17 02:24 Sodium Chloride 1,000 ml @ 75 mls/hr [id number] IV 01/22/17 10:37 (NS Flush) 2 ml UNSCH PRN IV FLUSH 01/22/17 10:45 (NS Flush) 2 ml BID IV FLUSH 01/22/17 21:00 (Tylenol) 650 mg Q4H PRN PO 01/22/17 10:45 (Zofran Inj) 4 mg Q6H PRN IVP 01/22/17 10:45 (Narcan Inj) 0.4 mg UNSCH PRN IV PUSH 01/22/17 10:45 (Valerie-Colace) 1 tab BID PO 01/22/17 21:00 (Milk Of Magnesia Liq) 30 ml Q12H PRN PO 01/22/17 10:45 (Senokot) 17.2 mg Q12H PRN PO 01/22/17 10:45 (Dulcolax Supp) 10 mg DAILY PRN RECTAL 01/22/17 10:45 (Lactulose Liq) 30 ml DAILY PRN PO 01/22/17 10:45 (Rocaltrol) 0.5 mcg DAILY PO 01/23/17 09:00 (Coreg) 3.125 mg BID PO 01/22/17 21:00 (Vitamin D3) 5,000 units DAILY PO 01/23/17 09:00 (Ferrous Sulfate) 325 mg DAILY PO 01/23/17 09:00 (Apresoline) 10 mg TID PO 01/22/17 13:00 01/22/17 13:52 (Cozaar) 25 mg DAILY PO 01/23/17 09:00 (Pravachol) 40 mg DAILY PO 01/23/17 09:00 (D50w (Vial) Inj) 50 ml UNSCH PRN IV PUSH 01/22/17 10:45 (Glucagon Inj) 1 mg UNSCH PRN OTHER 01/22/17 10:45 (NovoLOG SUPPLEMENTAL SCALE) 1 ACHS SLIDING SCALE SQ 01/22/17 12:00 (Morphine Inj) 2 mg Q4H PRN IV PUSH 01/22/17 13:45 Family History Family history reviewed and noncontributory to present illness Social History Smokes 1/4 PPD x 50 years Former occasional etoh use No illicit drugs Physical Exam Vital Signs Date Time Temp Pulse Resp B/P (MAP) Pulse Ox O2 Delivery O2 Flow Rate FiO2 01/22/17 14:00 98.1 76 20 153/67 98 01/22/17 13:45 98.0 70 16 162/68 100 01/22/17 13:39 98.0 70 16 162/68 100 01/22/17 12:45 97.5 82 18 153/70 (97) 100 01/22/17 12:45 01/22/17 11:47 98.0 87 18 156/71 100 01/22/17 11:33 97.9 76 17 130/66 100 01/22/17 11:13 100 2.00 01/22/17 10:42 74 16 132/73 (92) 99 Nasal Cannula 2.00 01/22/17 09:35 74 16 127/63 (84) 97 Nasal Cannula 2.00 01/22/17 08:20 97.6 91 18 122/64 (83) 94 Physical Exam GENERAL: This is a well-nourished, well-developed patient, in no apparent distress. SKIN: No rashes, ecchymoses or lesions. Cool and dry. Appears pale HEAD: Atraumatic. Normocephalic. EYES: Extraocular motions intact. No scleral icterus. No injection or drainage. ENT: Nose without bleeding, purulent drainage. Airway patent. NECK: Trachea midline. CARDIOVASCULAR: Normal pulses, RESPIRATORY: Nonlabored respirations GASTROINTESTINAL: Abdomen soft, non-tender, nondistended.Palpable abdominal/ umbilical mesh noted GENITOURINARY: Circumcised phallus, normal meatus, sands catheter in place with clear yellow urine. Bilateral descended testis, no masses. No CVA tenderness, no ecchymosis MUSCULOSKELETAL: Extremities without clubbing, cyanosis, or edema. NEUROLOGICAL: Awake and alert. Motor and sensory grossly within normal limits. Normal speech. Laboratory Tests Test 01/22/17 09:10 White Blood Count 11.9 Red Blood Count 2.32 Hemoglobin 6.4 Hematocrit 20.5 Mean Corpuscular Volume 88.5 Mean Corpuscular Hemoglobin 27.7 Mean Corpuscular Hemoglobin Concent 31.3 Red Cell Distribution Width 17.8 Platelet Count 235 Mean Platelet Volume 10.3 Neutrophils (%) (Auto) 82.6 Lymphocytes (%) (Auto) 9.6 Monocytes (%) (Auto) 6.2 Eosinophils (%) (Auto) 0.9 Basophils (%) (Auto) 0.7 Neutrophils # (Auto) 9.8 Lymphocytes # (Auto) 1.1 Monocytes # (Auto) 0.7 Eosinophils # (Auto) 0.1 Basophils # (Auto) 0.1 CBC Comment DIFF FINAL Differential Comment Prothrombin Time 43.9 Prothromb Time International Ratio 3.7 Urine Color YELLOW Urine Turbidity CLOUDY Urine pH 5.5 Urine Specific [place] 1.016 Urine Protein 100 Urine Glucose (UA) NEG Urine Ketones NEG Urine Occult Blood SMALL Urine Nitrite POS Urine Bilirubin NEG Urine Urobilinogen LESS THAN 2.0 Urine Leukocyte Esterase LARGE Urine RBC 32 Urine WBC Urine WBC Clumps MANY Urine Amorphous Sediment RARE Urine Bacteria MANY Urine Yeast with Hyphae MANY Urine Yeast (Budding) MANY Microscopic Urinalysis Comment CULTURE INDICATED Blood Urea Nitrogen 40 Creatinine 1.66 Random Glucose 137 Total Protein 6.1 Albumin 1.9 Calcium Level 8.0 Alkaline Phosphatase 127 Aspartate Amino Transf (AST/SGOT) 14 Alanine Aminotransferase (ALT/SGPT) 17 Total Bilirubin 0.1 Sodium Level 139 Potassium Level 4.2 Chloride Level 111 Carbon Dioxide Level 17.6 Anion Gap 10 Estimat Glomerular Filtration Rate 41 Lipase 25 Date/Time Source Procedure Growth Status 01/22/17 09:10 Urine Clean Catch Urine Culture Pending Received Result Diagram: 01/22/1710 01/22/17909 Personally reviewed images: Yes Imaging Last Impressions Abdomen/Pelvis CT 01/22/17903 Signed Impressions: Service Date/Time: Sunday, January 22, 2017 09:53 - CONCLUSION: 1. Spontaneous hemorrhage involving the right mid pole kidney measuring 6.5 cm in size. This obscures the previously seen cortical based lesion. I am unsure of this hemorrhage relates to spontaneous hemorrhage within that lesion. A followup MRI of the kidneys with and without gadolinium is suggested following resolution of the hemorrhage to better evaluate that lesion. 2. Right basilar atelectasis. 3. Fenestrated endograft. 4. Chronic pancreatitis. 5. 1.6 cm bladder stone. Blaze Del Valle Jr., MD Assessment and Plan Problem List: (1) NSTEMI (non-ST elevated myocardial infarction) ICD Code: I21.4 - NSTEMI (non-ST elevated myocardial infarction) Status: Acute (2) DM (diabetes mellitus) ICD Code: E11.9 - DM (diabetes mellitus) Status: Chronic (3) HTN (hypertension) ICD Code: I10 - HTN (hypertension) Status: Chronic (4) ASUNCION (acute kidney injury) ICD Code: N17.9 - Acute kidney failure, unspecified Status: Acute (5) Atrial fibrillation with RVR ICD Code: I48.91 - Unspecified atrial fibrillation Status: Acute (6) UTI (urinary tract infection) ICD Code: N39.0 - Urinary tract infection, site not specified Status: Acute Assessment and Plan -CT images personally reviewed. Right posterior renal hemorrhage noted. No obvious cause identified -Bladder stone also noted on CT scan -Patient has received 2 units PRBC due to his low Hgb. Vitals remain stable -At this time, no surgical intervention indicated. Any operation on this right kidney would likely result in loss of that right renal unit. Continue conservative management with serial Hgb and abdominal exams. Clinically the patient appears well and stable. -Will continue to follow -Maintain sands catheter Yosef Schroeder MD Jan 22, 2017 16:13
--- NOTE | 2017-01-22 17:19 | HHI.HP ---
HPI Service [facility] Primary Care Physician [facility] Admission Diagnosis GI bleed, constipation, abdominal pain Diagnoses: Chief Complaint: back pain Travel History International Travel<30 Days: No Contact w/Intl Traveler <30 Da: No Traveled to Known Affected Are: No History of Present Illness Pleasant 71yo M with PMH of atrial fibrillation on warfarin, AAA with repair, anxiety, DM2 with neuropathy and retinopathy, hypercholesterolemia, tobacco use , and COPD who presented in the ER today due to lower back pain that's been present for the past 2 weeks. Pt reports feeling tired and ill with decreased appetite around 3-4weeks ago. Several weeks ago he noticed constipation, pain on defecation, and "very dark brown/maroon stools". He has been using an OTC enema for the constipation and reports having 2 BM/ week. About 2wks ago he began to experience right sided pain that radiated to the left side about 2-3d ago. He rates the pain at a 7 and at a 9 at its maximum and describes it as burning, dull, and constant "like a toothache". He believes that lying down alleviates the pain and that moving in certain positions aggravate the pain. He denies any history of back injuries, recent accidents, fall, or trauma to the affected area. Pt reports that about 3mo ago he went to a doctor and had an upper and lower endoscopy performed. He also mentioned that he received 2units of blood at that time, but does not recall why. Of note, pt reports that about 3 -4yrs ago when he went to [facility] to receive his abdominal aortic stent, "The [facility] doctor told me I had left kidney cancer, but the [facility] next door told me they were cysts". He denies following up afterwards. Reports weight loss, decreased appetite, nausea, cough, abdominal pain he attributes to gas, constipation, pain on defecation, low back pain, and neuropathic leg pain from his diabetes. Denies AMBROCIO, CP seizures, recent changes in vision, SOB, vomiting, fever, chills, leg swelling, urinary and bowel incontinence, dysuria, bruising or redness in the affected area. Review of Systems Except as stated in HPI: all other systems reviewed are Neg Past Family Social History Past Medical History Atrial fibrillation with last dose of warfarin was last night (2.5mg, current dosing is 5mg on M W ), AAA, anxiety, CAD, hypercholesterolemia, CHF, COPD, CKD , DM with neuropathy and retinopathy, kidney stones (rt side), pancreatitis, renal failure, sleep apnea, multiple colonic polyps- adenomatous/tubulovillous colon polyps, duodenal AVMs, chronic pancreatitis, gastritis/duodenitis, chronic diarrhea, iron deficiency anemia on iron supplement. Past Surgical History AAA Repair, Colonoscopy (11/23), EGD, cardiac cath with stents x2, umbilical hernia repair with mesh, cyst removal from throat, tonsillectomy Reported Medications Last Impressions Abdomen/Pelvis CT 01/22/17 0904 Signed Impressions: Service Date/Time: Sunday, January 22, 2017 09:53 - CONCLUSION: 1. Spontaneous hemorrhage involving the right mid pole kidney measuring 6.5 cm in size. This obscures the previously seen cortical based lesion. I am unsure of this hemorrhage relates to spontaneous hemorrhage within that lesion. A followup MRI of the kidneys with and without gadolinium is suggested following resolution of the hemorrhage to better evaluate that lesion. 2. Right basilar atelectasis. 3. Fenestrated endograft. 4. Chronic pancreatitis. 5. 1.6 cm bladder stone. Blaze Del Valle Jr., MD Allergies: Coded Allergies: No Known Allergies (Verified , 01/22/17) Family History No family h/o renal cancer Mother from an ND at 60yo. no relationship with father, brothers, sisters. Social History Smokes 1 and 1/2 PPD x 60 years Former occasional etoh use, last EtOH use one beer a month ago Occasional marijuana use. Physical Exam Vital Signs Vital Signs Date Time Temp Pulse Resp B/P (MAP) Pulse Ox O2 Delivery O2 Flow Rate FiO2 01/22/17 14:00 98.1 76 20 153/67 98 01/22/17 13:45 98.0 70 16 162/68 100 01/22/17 13:39 98.0 70 16 162/68 100 01/22/17 12:45 97.5 82 18 153/70 (97) 100 01/22/17 12:45 01/22/17 11:47 98.0 87 18 156/71 100 01/22/17 11:33 97.9 76 17 130/66 100 01/22/17 11:13 100 2.00 01/22/17 10:42 74 16 132/73 (92) 99 Nasal Cannula 2.00 01/22/17 09:35 74 16 127/63 (84) 97 Nasal Cannula 2.00 01/22/17 08:20 97.6 91 18 122/64 (83) 94 Physical Exam GENERAL: Pleasant, disheveled, frail elderly male, pale, appears in nad. SKIN: Pale, warm and dry HEAD: Atraumatic. Normocephalic. Mild temporal wasting. EYES: Pupils equal and round. EOMI. No scleral icterus. No injection or drainage. ENT: No nasal bleeding or discharge. Mucous membranes slightly dry. NECK: Trachea midline. No JVD. CARDIOVASCULAR: Regular rate and rhythm. S1 and S2 heard, no murmurs, gallops, rubs. RESPIRATORY: No accessory muscle use. Decreased breath sounds with ronchi and wheezing heard bilaterally. GASTROINTESTINAL: Bowel sounds heard in all 4 quadrants. No bruits. Abdomen soft , non-tender, nondistended. No rebound or guarding. Hepatic and splenic margins not palpable. MUSCULOSKELETAL: Presence of protruding mesh from prior umbilical hernia repair , nontender, nonerythematous. Able to move all 4 extremities with no difficulty. 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 No clubbing, cyanosis, or edema. No obvious deformities. No calf tenderness, No pain on dorsiflexion bilaterally. NEUROLOGICAL: Awake and alert. No obvious cranial nerve deficits. Motor grossly within normal limits. 5/ 5 muscle strength in the arms, 4/5 muscle strength in the legs. Normal speech. PSYCHIATRIC: Labile mood and affect; insight and judgment normal. Laboratory Laboratory Tests Test 01/22/17 09:10 White Blood Count 11.9 Red Blood Count 2.32 Hemoglobin 6.4 Hematocrit 20.5 Mean Corpuscular Volume 88.5 Mean Corpuscular Hemoglobin 27.7 Mean Corpuscular Hemoglobin Concent 31.3 Red Cell Distribution Width 17.8 Platelet Count 235 Mean Platelet Volume 10.3 Neutrophils (%) (Auto) 82.6 Lymphocytes (%) (Auto) 9.6 Monocytes (%) (Auto) 6.2 Eosinophils (%) (Auto) 0.9 Basophils (%) (Auto) 0.7 Neutrophils # (Auto) 9.8 Lymphocytes # (Auto) 1.1 Monocytes # (Auto) 0.7 Eosinophils # (Auto) 0.1 Basophils # (Auto) 0.1 CBC Comment DIFF FINAL Differential Comment Prothrombin Time 43.9 Prothromb Time International Ratio 3.7 Urine Color YELLOW Urine Turbidity CLOUDY Urine pH 5.5 Urine Specific [place] 1.016 Urine Protein 100 Urine Glucose (UA) NEG Urine Ketones NEG Urine Occult Blood SMALL Urine Nitrite POS Urine Bilirubin NEG Urine Urobilinogen LESS THAN 2.0 Urine Leukocyte Esterase LARGE Urine RBC 32 Urine WBC Urine WBC Clumps MANY Urine Amorphous Sediment RARE Urine Bacteria MANY Urine Yeast with Hyphae MANY Urine Yeast (Budding) MANY Microscopic Urinalysis Comment CULTURE INDICATED Blood Urea Nitrogen 40 Creatinine 1.66 Random Glucose 137 Total Protein 6.1 Albumin 1.9 Calcium Level 8.0 Alkaline Phosphatase 127 Aspartate Amino Transf (AST/SGOT) 14 Alanine Aminotransferase (ALT/SGPT) 17 Total Bilirubin 0.1 Sodium Level 139 Potassium Level 4.2 Chloride Level 111 Carbon Dioxide Level 17.6 Anion Gap 10 Estimat Glomerular Filtration Rate 41 Lipase 25 Date/Time Source Procedure Growth Status 01/22/17 09:10 Urine Clean Catch Urine Culture Pending Received Result Diagram: 01/22/1790901/22/17909 Imaging Last Impressions Abdomen/Pelvis CT 01/22/17903 Signed Impressions: Service Date/Time: Sunday, January 22, 2017 09:53 - CONCLUSION: 1. Spontaneous hemorrhage involving the right mid pole kidney measuring 6.5 cm in size. This obscures the previously seen cortical based lesion. I am unsure of this hemorrhage relates to spontaneous hemorrhage within that lesion. A followup MRI of the kidneys with and without gadolinium is suggested following resolution of the hemorrhage to better evaluate that lesion. 2. Right basilar atelectasis. 3. Fenestrated endograft. 4. Chronic pancreatitis. 5. 1.6 cm bladder stone. Blaze Del Valle Jr., MD Caprini VTE Risk Assessment Caprini VTE Risk Assessment: Mod/High Risk (score >= 2) VTE Pharm Contraindication: Hemorrhage Caprini Risk Assessment Model Point Value = 1 Point Value = 2 Point Value = 3 Point Value = 5 Age 41-60 Minor surgery BMI > 25 kg/m2 Swollen legs Varicose veins or History of unexplained or recurrent spontaneous Oral contraceptives or hormone replacement Sepsis (< 1 month) Serious lung disease, including pneumonia (< 1 month) Abnormal pulmonary function Acute myocardial infarction Congestive heart failure (< 1 month) History of inflammatory bowel disease Medical patient at bed rest Age 61-74 Arthroscopic surgery Major open surgery (> 45 min) Laparoscopic surgery (> 45 min) Malignancy Confined to bed (> 72 hours) Immobilizing plaster cast Central venous access Age >= 75 History of VTE Family history of VTE Factor V Leiden Prothrombin [id number] Lupus anticoagulant Anticardiolipin antibodies Elevated serum homocysteine Heparin-induced thrombocytopenia Other congenital or acquired thrombophilia Stroke (< 1 month) Elective arthroplasty Hip, pelvis, or leg fracture Acute spinal cord injury (< 1 month) Prophylaxis Regimen Total Risk Factor Score Risk Level Prophylaxis Regimen 0-1 Low Early ambulation 2 Moderate Order ONE of the following: *Sequential Compression Device (SCD) *Heparin 5000 units SQ BID 3-4 Higher Order ONE of the following medications: *Heparin 5000 units SQ TID *Enoxaparin/Lovenox 40 mg SQ daily (WT < 150 kg, CrCl > 30 mL/min) *Enoxaparin/Lovenox 30 mg SQ daily (WT < 150 kg, CrCl > 10-29 mL/min) *Enoxaparin/Lovenox 30 mg SQ BID (WT < 150 kg, CrCl > 30 mL/min) AND/OR *Sequential Compression Device (SCD) 5 or more Highest Order ONE of the following medications: *Heparin 5000 units SQ TID (Preferred with Epidurals) *Enoxaparin/Lovenox 40 mg SQ daily (WT < 150 kg, CrCl > 30 mL/min) *Enoxaparin/Lovenox 30 mg SQ daily (WT < 150 kg, CrCl > 10-29 mL/min) *Enoxaparin/Lovenox 30 mg SQ BID (WT < 150 kg, CrCl > 30 mL/min) AND *Sequential Compression Device (SCD) Assessment and Plan Assessment and Plan Right Kidney Hemorrhage CT abdomen showed spontaneous hemorrhage involving the right mid pole kidney measuring 6.5 cm in size. Radiology recommends an MRI of the kidneys with and without gadolinium for better evaluation Urology consulted pain management Bladder Stone CT abdomen showed bladder stone measuring 1.61cm urology following GI Bleed- etiology unknown at this time poss secondary to right kidney hemorrhage vs colonic polyps last colonoscopy performed 11/2016 showed multiple colonic polyps 2 units of pRBC ordered Pt is anticoagulated on warfarin for afib. INR is 3.7, will give Prothrombin complex to reverse INR, pt has active bleeding cont IVF NPO GI consulted for positive fecal occult blood monitor labs Anemia- etiology unknown at this time 2 units of pRBC ordered on iron supplementation before admission GI consulted for positive fecal occult blood monitor labs Nausea on zofran Constipation cont IVF and current laxatives Chronic Kidney Disease BUN and Cr levels appears at baseline at this time on IVF monitor renal function Hypertension on carvedilol, hydralazine, losartan hold BP meds if SBP<110 Hyperlipidemia on pravastatin Diabetes Mellitus with neuropathy and retinopathy on glypizide at home SSI daily accuchecks Tobacco Use- counseling regarding tobacco cessation refusing nicotine patch at this time monitor for withdrawal symptoms can give ativan if withdrawal symptoms occur Severe protein calorie malnutrition albumin 1.9 total protein 6.1 muscle atrophy, bitemporal wasting, UE & LE wasting weak handgrip add ensure consult dictaphone mechanic Physical deconditioning. Consult PT DVT prophylaxis- chemical prophylaxis contraindicated at this time secondary to active bleeding SCD/TEDss Discussed Condition With Discussed with the patient, nurse, ED physician, GI service Physician Certification 2 Midnight Certification Type: Admission for Inpatient Services Order for Inpatient Services The services are ordered in accordance with Medicare regulations or non- Medicare payer requirements, as applicable. In the case of services not specified as inpatient-only, they are appropriately provided as inpatient services in accordance with the 2-midnight benchmark. Estimated LOS (days): 3 days is the estimated time the patient will need to remain in the hospital, assuming treatment plan goals are met and no additional complications. Post-Hospital Plan: Not yet determined Mara Loving MD Jan 22, 2017 17:19
[2017-01-22] MEDS: MORPHINE SULFATE 2 MG/ML INJ IV PUSH PRN ×2 (17:46→22:11)
[2017-01-22] MEDS: SODIUM CHLOR 0.9% 1000 ML INJ 1,000 ML IV SCH (17:53)
[2017-01-22 19:27] LABS: MAGNESIUM 2.1 MG/DL (1.5-2.5)
[2017-01-22 20:52] LABS: AUTOMATED NEUTROPHIL # 8.3 TH/MM3 (1.8-7.7); BASOPHIL # 0.1 TH/MM3 (0-0.2); BASOPHIL % 0.5 % (0.0-2.0); EOSINOPHIL # 0.1 TH/MM3 (0-0.4); EOSINOPHIL % 0.9 % (0.0-4.0); HEMATOCRIT 22.6 % (39.0-51.0); HEMO FLAGS DIFF FINAL; LYMPH % 12.5 % (9.0-44.0); LYMPHOCYTE # 1.3 TH/MM3 (1.0-4.8); MEAN CELL VOLUME 87.3 FL (80.0-100.0); MEAN CORPUSCULAR HEMOGLOBIN 28.7 PG (27.0-34.0); MEAN CORPUSCULAR HGB CONC 32.8 % (32.0-36.0); MONO % 7.6 % (0.0-8.0); NEUT % 78.5 % (16.0-70.0); PLATELET COUNT 169 TH/MM3 (150-450); RED BLOOD COUNT 2.58 MIL/MM3 (4.50-5.90); RED CELL DISTRIBUTION WIDTH 17.3 % (11.6-17.2); WHITE BLOOD COUNT 10.6 TH/MM3 (4.0-11.0)
[2017-01-22] MEDS: CARVEDILOL 3.125 MG TAB PO SCH (20:55)
[2017-01-22] MEDS: SODIUM CHLORIDE 0.9% FLUSH 10 ML FLUSH IV FLUSH SCH (20:55)
[2017-01-22] MEDS: DOCUSATE SODIUM 50 MG/SENNA 8.6 MG TAB PO SCH (20:55)
--- NOTE | 2017-01-22 21:36 | EKG ---
Date Performed: 01/22/2017 Time Performed: 09:43:58 PTAGE: 71 years EKG: Sinus rhythm WITH OCCASIONAL ECTOPIC PREMATURE COMPLEXES SEPTAL Q WAVES ABNORMAL ECG PREVIOUS TRACING : 11/20/2016 07.59 Compared to the previous tracing rate faster DOCTOR: Suzy Tyson Interpretating Date/Time 01/22/2017 21:34:41
[2017-01-23] VITALS (8 sets, daily range): BP systolic 137–163; BP diastolic 65–70; PULSE 60–78; RESP 16–18; TEMP 97.4–98.4; O2SAT 96–98
[2017-01-23] MEDS: SODIUM CHLOR 0.9% 1000 ML INJ 1,000 ML IV SCH ×3 (06:26→18:29)
[2017-01-23] MEDS: MORPHINE SULFATE 2 MG/ML INJ IV PUSH PRN (06:29)
[2017-01-23] MEDS: INSULIN ASPART SUPPLEMENTAL SCALE SQ SCH ×4 (08:00→20:14)
[2017-01-23 08:10] LABS: AUTOMATED NEUTROPHIL # 8.1 TH/MM3 (1.8-7.7); BASOPHIL # 0.1 TH/MM3 (0-0.2); BASOPHIL % 0.8 % (0.0-2.0); EOSINOPHIL # 0.1 TH/MM3 (0-0.4); EOSINOPHIL % 0.8 % (0.0-4.0); HEMATOCRIT 23.4 % (39.0-51.0); HEMO FLAGS DIFF FINAL; LYMPH % 10.9 % (9.0-44.0); LYMPHOCYTE # 1.1 TH/MM3 (1.0-4.8); MEAN CELL VOLUME 88.9 FL (80.0-100.0); MEAN CORPUSCULAR HEMOGLOBIN 29.2 PG (27.0-34.0); MEAN CORPUSCULAR HGB CONC 32.9 % (32.0-36.0); MONO % 7.9 % (0.0-8.0); NEUT % 79.6 % (16.0-70.0); PLATELET COUNT 156 TH/MM3 (150-450); RED BLOOD COUNT 2.63 MIL/MM3 (4.50-5.90); RED CELL DISTRIBUTION WIDTH 18.1 % (11.6-17.2); WHITE BLOOD COUNT 10.2 TH/MM3 (4.0-11.0)
[2017-01-23 08:33] LABS: BICARBONATE 17.9 MEQ/L (21.0-32.0)
[2017-01-23 08:36] LABS: CALCIUM-PROTEIN CORRECTED 8.5 MG/DL (8.5-10.1); TOTAL BILIRUBIN ADULT 0.2 MG/DL (0.2-1.0)
[2017-01-23] MEDS: DOCUSATE SODIUM 50 MG/SENNA 8.6 MG TAB PO SCH ×2 (08:46→20:18)
[2017-01-23] MEDS: hydrALAZINE HCL 10 MG TAB PO SCH ×3 (08:46→18:27)
[2017-01-23] MEDS: PRAVASTATIN SOD 40 MG TAB PO SCH (08:46)
[2017-01-23] MEDS: FERROUS SULFATE 325 MG (65 MG ELEMENTAL IRON) TAB PO SCH (08:46)
[2017-01-23] MEDS: CHOLECALCIFEROL (VIT D3) 5000 UNIT CAP PO SCH (08:47)
[2017-01-23] MEDS: CARVEDILOL 3.125 MG TAB PO SCH ×2 (08:47→20:18)
[2017-01-23] MEDS: LOSARTAN 25 MG TAB PO SCH (08:47)
[2017-01-23] MEDS: CALCITRIOL 0.25 MCG CAP PO SCH (08:47)
[2017-01-23] MEDS: SODIUM CHLORIDE 0.9% FLUSH 10 ML FLUSH IV FLUSH SCH ×2 (08:48→20:18)
--- NOTE | 2017-01-23 11:54 | HHI.PR ---
Subjective Remarks Patient reports is feeling okay. Reports that he doesn't know what's going on with his body. Extensive discussion with the patient regarding his current clinical condition and ongoing workup. Objective Vitals Vital Signs Date Time Temp Pulse Resp B/P (MAP) Pulse Ox O2 Delivery O2 Flow Rate FiO2 01/23/17 11:00 98.4 65 17 145/69 (94) 97 01/23/17 08:00 97.4 63 16 141/66 (91) 96 01/23/17 05:21 98.0 60 18 137/66 (89) 96 01/23/17 01:25 97.8 65 18 142/66 (91) 97 01/22/17 20:34 97.6 69 18 149/65 (93) 96 01/22/17 16:05 98.0 67 18 144/65 (91) 100 01/22/17 14:00 98.1 76 20 153/67 98 01/22/17 13:45 98.0 70 16 162/68 100 01/22/17 13:39 98.0 70 16 162/68 100 01/22/17 12:45 97.5 82 18 153/70 (97) 100 01/22/17 12:45 01/22/17 11:47 98.0 87 18 156/71 100 I/O 01/22/17 01/22/17 01/22/17 01/23/17 01/23/17 01/23/17 07:00 15:00 23:00 07:00 15:00 23:00 Intake Total 2522 ml 400 ml 1100 ml Output Total 550 ml 1400 ml Balance 2522 ml -150 ml -300 ml Intake IV Total 2080 ml 1100 ml Packed Cells 400 ml 400 ml Blood Product IV Normal Saline Flush 42 ml Output Urine Total 550 ml 1400 ml # Bowel Movements 0 Result Diagram: 01/23/1770601/23/17706 Imaging Last Impressions Abdomen/Pelvis CT 01/22/17903 Signed Impressions: Service Date/Time: Sunday, January 22, 2017 09:53 - CONCLUSION: 1. Spontaneous hemorrhage involving the right mid pole kidney measuring 6.5 cm in size. This obscures the previously seen cortical based lesion. I am unsure of this hemorrhage relates to spontaneous hemorrhage within that lesion. A followup MRI of the kidneys with and without gadolinium is suggested following resolution of the hemorrhage to better evaluate that lesion. 2. Right basilar atelectasis. 3. Fenestrated endograft. 4. Chronic pancreatitis. 5. 1.6 cm bladder stone. Blaze Del Valle Jr., MD Objective Remarks GENERAL: Elderly male in no apparent distress. CARDIOVASCULAR: Normal rate and regular rhythm without murmurs, gallops, or rubs. RESPIRATORY: Good respiratory efforts. Breath sounds equal and clear to auscultation bilaterally. GASTROINTESTINAL: Abdomen soft, non-tender, non-distended. Normal active bowel sounds MUSCULOSKELETAL: Extremities without cyanosis, or edema. NEURO: Alert & Oriented x4 to person, place, time, situation. Moves all ext x4 PSYCH: Appropriate mood and affect. A/P Assessment and Plan 71-year-old male with: Right Kidney Hemorrhage CT abdomen showed spontaneous hemorrhage involving the right mid pole kidney measuring 6.5 cm in size. Radiology recommends an MRI of the kidneys with and without gadolinium for better evaluation Urology following recommends continuing medical management with serial H&H and abdominal exam. pain management as needed. Patient appeared to be clinically stable at this point. Bladder Stone CT abdomen showed bladder stone measuring 1.61cm urology following GI Bleed- etiology unknown at this time last colonoscopy performed 11/2016 showed multiple colonic polyps Status post 2 units of PRBC Pt is anticoagulated on warfarin for afib. INR is 3.7, Coumadin reversed. Repeat INR today. Clear liquid diet per GI. GI considering colonoscopy prior to discharge. monitor labs Anemia- etiology unknown at this time S/P 2 units of pRBC on iron supplementation before admission GI following monitor labs Chronic Kidney Disease BUN and Cr levels appears at baseline at this time on IVF monitor renal function Hypertension on carvedilol, hydralazine, losartan hold BP meds if SBP<110 Hyperlipidemia on pravastatin Diabetes Mellitus with neuropathy and retinopathy SSI daily accuchecks Tobacco Use - Patient counseled on cessation. Severe protein calorie malnutrition albumin 1.9 total protein 6.1 muscle atrophy, bitemporal wasting, UE & LE wasting add ensure consult quality systems manager Physical deconditioning. Consult PT DVT prophylaxis- chemical prophylaxis contraindicated at this time secondary to active bleeding SCD/TEDss Harvey Brooks MD Jan 23, 2017 11:54
--- NOTE | 2017-01-23 13:31 | HHI.GIFU ---
Subjective Remarks Pt resting in bed in NAD. c/o Left flank pain. (Magaly Ortiz) Objective Vitals I&O Vital Signs Date Time Temp Pulse Resp B/P (MAP) Pulse Ox O2 Delivery O2 Flow Rate FiO2 01/23/17 11:00 98.4 65 17 145/69 (94) 97 01/23/17 08:00 97.4 63 16 141/66 (91) 96 01/23/17 05:21 98.0 60 18 137/66 (89) 96 01/23/17 01:25 97.8 65 18 142/66 (91) 97 01/22/17 20:34 97.6 69 18 149/65 (93) 96 01/22/17 16:05 98.0 67 18 144/65 (91) 100 01/22/17 14:00 98.1 76 20 153/67 98 01/22/17 13:45 98.0 70 16 162/68 100 01/22/17 13:39 98.0 70 16 162/68 100 I/O 01/22/17 01/22/17 01/22/17 01/23/17 01/23/17 01/23/17 07:00 15:00 23:00 07:00 15:00 23:00 Intake Total 2522 ml 400 ml 1100 ml Output Total 550 ml 1400 ml Balance 2522 ml -150 ml -300 ml Intake IV Total 2080 ml 1100 ml Packed Cells 400 ml 400 ml Blood Product IV Normal Saline Flush 42 ml Output Urine Total 550 ml 1400 ml # Bowel Movements 0 Laboratory Laboratory Tests Test 01/22/17 18:45 01/22/17 19:53 01/23/17 07:07 Fibrinogen 549 Phosphorus Level 3.9 Magnesium Level 2.1 White Blood Count 10.6 10.2 Red Blood Count 2.58 2.63 Hemoglobin 7.4 7.7 Hematocrit 22.6 23.4 Mean Corpuscular Volume 87.3 88.9 Mean Corpuscular Hemoglobin 28.7 29.2 Mean Corpuscular Hemoglobin Concent 32.8 32.9 Red Cell Distribution Width 17.3 18.1 Platelet Count 169 156 Mean Platelet Volume 10.1 9.9 Neutrophils (%) (Auto) 78.5 79.6 Lymphocytes (%) (Auto) 12.5 10.9 Monocytes (%) (Auto) 7.6 7.9 Eosinophils (%) (Auto) 0.9 0.8 Basophils (%) (Auto) 0.5 0.8 Neutrophils # (Auto) 8.3 8.1 Lymphocytes # (Auto) 1.3 1.1 Monocytes # (Auto) 0.8 0.8 Eosinophils # (Auto) 0.1 0.1 Basophils # (Auto) 0.1 0.1 CBC Comment DIFF FINAL DIFF FINAL Differential Comment Blood Urea Nitrogen 35 Creatinine 1.26 Random Glucose 75 Total Protein 5.1 Albumin 1.6 Calcium Level 7.4 Alkaline Phosphatase 323 Aspartate Amino Transf (AST/SGOT) 39 Alanine Aminotransferase (ALT/SGPT) 24 Total Bilirubin 0.2 Sodium Level 144 Potassium Level 4.0 Chloride Level 118 Carbon Dioxide Level 17.9 Anion Gap 8 Estimat Glomerular Filtration Rate 56 Protein Corrected Calcium 8.5 Date/Time Source Procedure Growth Status 01/22/17 09:10 Urine Clean Catch Urine Culture - Preliminary Gram Negative Elmer Resulted Physical Exam HEENT: PERRL; normocephalic; atraumatic; no jaundice. CHEST: rhonchi CARDIAC: RRR ABDOMEN: Soft, nondistended, nontender; no hepatosplenomegaly; bowel sounds are present in all four quadrants. EXTREMITIES: No clubbing, cyanosis, or edema. SKIN: Normal; no rash; no jaundice. INVENTORY CONTROL ASSOCIATE: No focal deficits; alert and oriented times three. (Magaly Ortiz [facility]) Assessment and Plan Plan ASSESSMENT: - Severe anemia. S/P EGD/Colonoscopy (11/23/16)----> nodular duodenitis, multiple colon polyps-especially in cecum, ascending, and transverse colon, unable to get good positioning to remove all the polyps. Cecal and ascending colon polyps removed, they were big but not worrisome for malignancy. At this point I would be concerned about high-grade dysplasia because of the length of the procedure I opted to stop at this point so as to await for pathology and then make a decision regarding further colonoscopies versus right hemicolectomy the rest of the colon appeared to be unremarkable for the most part. Pathology of small intestine duodenal mucosa with foveolar metaplasia, adenomatous polyps and tubulovillous adenomas, multiple fragments. Reports dark brown stool, no hematemesis and no rectal bleeding. CT scan abdomen and pelvis (01/22/17)----> Spontaneous hemorrhage involving the right mid pole kidney measuring 6.5 cm in size. This obscures the previously seen cortical based lesion. I am unsure if this hemorrhage relates to spontaneous hemorrhage within that lesion. A followup MRI of the kidneys with and without gadolinium is suggested following resolution of the hemorrhage to better evaluate that lesion. 2. Right basilar atelectasis. 3. Fenestrated endograft. 4 Chronic pancreatitis. 5. 1.6 bladder stone. Hgb up to 7.7 s/p PRBC - Change in stool with constipation. One week hx of back pain with constipation. - ASUNCION with ckd. Creat. improving - Right kidney hemorrhage on CT scan. INR 3.7 (last had coumadin 2d ago) - Back pain (right sided), ? r/t right kidney urology monitoring for now, concern that surgery will result in loss of kidney - Hx colon polyps, Colonoscopy as above. pathology adenomatous polyps and tubulovillous adenomas, multiple fragments. - Hx esophagitis, duodenal avms. PPI - Chronic pancreatitis. Stable. - Atrial fibrillation on coumadin. INR 3.7. - Hyperlipidemia, CAD, S/P PCI, stent, COPD, CHF, DM 01/23/17 pt c/o left flank pain. urology non op mgmt for now. Hgb improved after blood transfusion PLAN: - Clear liquids - Monitor HH - Transfuse as necessary - urology monitoring renal hemorrhage - colonoscopy when kidney hemorrhage stable - Supportive care - Pt seen and examined by Dr. Feldman and myself and this note is written on his behalf (Magaly Ortiz) Physician Comments Patient seen and examined Agree with above Continue with current supportive care Monitor labs (Phuc Feldman MD) Magaly Ortiz Jan 23, 2017 13:31 Phuc Feldman MD Jan 23, 2017 22:40
[2017-01-23 18:06] LABS: INTERNATIONAL NORMALIZED RATIO 2.2 RATIO; PROTHROMBIN TIME - PATIENT 24.8 SEC (9.8-11.6)
--- NOTE | 2017-01-23 18:24 | HHI.PR ---
Subjective Patient symptoms today Doing well, pain improved. White catheter exchanged today. No hematuria. Hgb improved, stable Objective Vital Signs Vital Signs Date Time Temp Pulse Resp B/P (MAP) Pulse Ox O2 Delivery O2 Flow Rate FiO2 01/23/17 16:30 98.0 67 18 145/65 (91) 97 01/23/17 11:00 98.4 65 17 145/69 (94) 97 01/23/17 08:00 97.4 63 16 141/66 (91) 96 01/23/17 05:21 98.0 60 18 137/66 (89) 96 01/23/17 01:25 97.8 65 18 142/66 (91) 97 01/22/17 20:34 97.6 69 18 149/65 (93) 96 Intake & Output 01/23/17 01/23/17 07:00 19:00 Intake Total 1100 ml Output Total 1400 ml Balance -300 ml Intake IV Total 1100 ml Output Urine Total 1400 ml Result Diagram: 01/23/1770601/23/17706 Objective Remarks NAD, AAOx3 Resp NL Ab S/NT/ND White clear urine Medications and IVs Current Medications Medications (Trade) Dose Ordered Sig/Ana Route Start Time Stop Time Status Last Admin Sodium Chloride 1,000 ml @ 75 mls/hr [id number] IV 01/22/17 10:37 01/23/17 06:26 (NS Flush) 2 ml UNSCH PRN IV FLUSH 01/22/17 10:45 (NS Flush) 2 ml BID IV FLUSH 01/22/17 21:00 01/23/17 08:48 (Tylenol) 650 mg Q4H PRN PO 01/22/17 10:45 (Zofran Inj) 4 mg Q6H PRN IVP 01/22/17 10:45 (Narcan Inj) 0.4 mg UNSCH PRN IV PUSH 01/22/17 10:45 (Valerie-Colace) 1 tab BID PO 01/22/17 21:00 01/23/17 08:46 (Milk Of Magnesia Liq) 30 ml Q12H PRN PO 01/22/17 10:45 (Senokot) 17.2 mg Q12H PRN PO 01/22/17 10:45 (Dulcolax Supp) 10 mg DAILY PRN RECTAL 01/22/17 10:45 (Lactulose Liq) 30 ml DAILY PRN PO 01/22/17 10:45 (Rocaltrol) 0.5 mcg DAILY PO 01/23/17 09:00 01/23/17 08:47 (Coreg) 3.125 mg BID PO 01/22/17 21:00 01/23/17 08:47 (Vitamin D3) 5,000 units DAILY PO 01/23/17 09:00 01/23/17 08:47 (Ferrous Sulfate) 325 mg DAILY PO 01/23/17 09:00 01/23/17 08:46 (Apresoline) 10 mg TID PO 01/22/17 13:00 01/23/17 12:30 (Cozaar) 25 mg DAILY PO 01/23/17 09:00 01/23/17 08:47 (Pravachol) 40 mg DAILY PO 01/23/17 09:00 01/23/17 08:46 (D50w (Vial) Inj) 50 ml UNSCH PRN IV PUSH 01/22/17 10:45 (Glucagon Inj) 1 mg UNSCH PRN OTHER 01/22/17 10:45 (NovoLOG SUPPLEMENTAL SCALE) 1 ACHS SLIDING SCALE SQ 01/22/17 12:00 (Morphine Inj) 2 mg Q4H PRN IV PUSH 01/22/17 13:45 01/23/17 06:29 Assessment and Plan Problem List: (1) NSTEMI (non-ST elevated myocardial infarction) ICD Code: I21.4 - NSTEMI (non-ST elevated myocardial infarction) Status: Acute (2) DM (diabetes mellitus) ICD Code: E11.9 - DM (diabetes mellitus) Status: Chronic (3) HTN (hypertension) ICD Code: I10 - HTN (hypertension) Status: Chronic (4) ASUNCION (acute kidney injury) ICD Code: N17.9 - Acute kidney failure, unspecified Status: Acute (5) Atrial fibrillation with RVR ICD Code: I48.91 - Unspecified atrial fibrillation Status: Acute (6) UTI (urinary tract infection) ICD Code: N39.0 - Urinary tract infection, site not specified Status: Acute Assessment and Plan -Hgb improved and stable -White catheter exchanged today -Continue conservative management Yosef Schroeder MD Jan 23, 2017 18:23
[2017-01-24] VITALS (8 sets, daily range): BP systolic 141–152; BP diastolic 67–80; PULSE 57–67; RESP 18; TEMP 97.3–98.4; O2SAT 96–97
[2017-01-24] MEDS: SODIUM CHLOR 0.9% 1000 ML INJ 1,000 ML IV SCH ×2 (06:42→15:06)
[2017-01-24 07:42] LABS: HEMATOCRIT 23.7 % (39.0-51.0); MEAN CELL VOLUME 88.4 FL (80.0-100.0); MEAN CORPUSCULAR HEMOGLOBIN 29.3 PG (27.0-34.0); MEAN CORPUSCULAR HGB CONC 33.2 % (32.0-36.0); PLATELET COUNT 181 TH/MM3 (150-450); RED BLOOD COUNT 2.68 MIL/MM3 (4.50-5.90); RED CELL DISTRIBUTION WIDTH 17.7 % (11.6-17.2); REVIEW FLAG FINAL; WHITE BLOOD COUNT 9.9 TH/MM3 (4.0-11.0)
[2017-01-24 07:52] LABS: INTERNATIONAL NORMALIZED RATIO 2.5 RATIO; PROTHROMBIN TIME - PATIENT 29.2 SEC (9.8-11.6)
[2017-01-24 08:12] LABS: BICARBONATE 18.8 MEQ/L (21.0-32.0); POTASSIUM 4.6 MEQ/L (3.5-5.1)
[2017-01-24 08:34] LABS: CALCIUM-PROTEIN CORRECTED 7.9 MG/DL (8.5-10.1)
[2017-01-24] MEDS: DOCUSATE SODIUM 50 MG/SENNA 8.6 MG TAB PO SCH ×2 (09:41→19:43)
[2017-01-24] MEDS: CHOLECALCIFEROL (VIT D3) 5000 UNIT CAP PO SCH (09:41)
[2017-01-24] MEDS: SODIUM CHLORIDE 0.9% FLUSH 10 ML FLUSH IV FLUSH SCH ×2 (09:41→19:50)
[2017-01-24] MEDS: CALCITRIOL 0.25 MCG CAP PO SCH (09:41)
[2017-01-24] MEDS: FERROUS SULFATE 325 MG (65 MG ELEMENTAL IRON) TAB PO SCH (09:41)
[2017-01-24] MEDS: INSULIN ASPART SUPPLEMENTAL SCALE SQ SCH ×4 (09:41→19:51)
[2017-01-24] MEDS: hydrALAZINE HCL 10 MG TAB PO SCH ×3 (09:41→17:28)
[2017-01-24] MEDS: PRAVASTATIN SOD 40 MG TAB PO SCH (09:41)
[2017-01-24] MEDS: CARVEDILOL 3.125 MG TAB PO SCH ×2 (09:41→19:52)
[2017-01-24] MEDS: LOSARTAN 25 MG TAB PO SCH (09:41)
--- NOTE | 2017-01-24 09:44 | HHI.GIFU ---
Subjective Remarks Patient resting in bed. He states he is feeling much better. He has not had any obvious GI bleeding. His back pain has improved his second the clear liquid diet and would like his diet advanced. (Jazz Mejia) Objective Vitals I&O Vital Signs Date Time Temp Pulse Resp B/P (MAP) Pulse Ox O2 Delivery O2 Flow Rate FiO2 01/24/17 04:00 98.3 57 18 145/72 (96) 96 01/24/17 00:00 98.4 57 18 147/69 (95) 97 01/23/17 20:00 98.0 78 18 163/70 (101) 98 01/23/17 19:30 98.0 71 18 163/70 (101) 98 01/23/17 17:30 98.0 71 18 163/70 (101) 98 01/23/17 11:00 98.4 65 17 145/69 (94) 97 I/O 01/23/17 01/23/17 01/23/17 01/24/17 01/24/17 01/24/17 07:00 15:00 23:00 07:00 15:00 23:00 Intake Total 1999 ml 1377 ml 911 ml Output Total 1400 ml 200 ml 900 ml Balance 599 ml 1177 ml 11 ml Intake Oral 480 ml IV Total 1999 ml 897 ml 911 ml Output Urine Total 1400 ml 200 ml 900 ml # Bowel Movements 0 Laboratory Laboratory Tests Test 01/23/17 17:29 01/24/17 07:14 Prothrombin Time 24.8 29.2 Prothromb Time International Ratio 2.2 2.5 White Blood Count 9.9 Red Blood Count 2.68 Hemoglobin 7.9 Hematocrit 23.7 Mean Corpuscular Volume 88.4 Mean Corpuscular Hemoglobin 29.3 Mean Corpuscular Hemoglobin Concent 33.2 Red Cell Distribution Width 17.7 Platelet Count 181 Mean Platelet Volume 9.8 Blood Urea Nitrogen 31 Creatinine 1.32 Random Glucose 109 Total Protein 5.5 Calcium Level 7.1 Sodium Level 142 Potassium Level 4.6 Chloride Level 116 Carbon Dioxide Level 18.8 Anion Gap 7 Estimat Glomerular Filtration Rate 53 Protein Corrected Calcium 7.9 Date/Time Source Procedure Growth Status 01/22/17 09:10 Urine Clean Catch Urine Culture - Final Klebsiella Pneumoniae Complete Imaging Last Impressions Abdomen/Pelvis CT 01/22/17 0904 Signed Impressions: Service Date/Time: Sunday, January 22, 2017 09:53 - CONCLUSION: 1. Spontaneous hemorrhage involving the right mid pole kidney measuring 6.5 cm in size. This obscures the previously seen cortical based lesion. I am unsure of this hemorrhage relates to spontaneous hemorrhage within that lesion. A followup MRI of the kidneys with and without gadolinium is suggested following resolution of the hemorrhage to better evaluate that lesion. 2. Right basilar atelectasis. 3. Fenestrated endograft. 4. Chronic pancreatitis. 5. 1.6 cm bladder stone. Blaze Del Valle Jr., MD Physical Exam HEENT: Normocephalic; atraumatic; no jaundice. CHEST: Course breath sounds, resp. even/unlabored CARDIAC: RRR ABDOMEN: Soft, nondistended, nontender; no hepatosplenomegaly; bowel sounds are present in all four quadrants. EXTREMITIES: No clubbing, cyanosis, or edema. SKIN: Normal; no rash; no jaundice. INSTRUCTIONAL LEADER: No focal deficits; alert and oriented times three. (Jazz Mejia) Assessment and Plan Plan ASSESSMENT: - Severe anemia. S/P EGD/Colonoscopy (11/23/16)----> nodular duodenitis, multiple colon polyps-especially in cecum, ascending, and transverse colon, unable to get good positioning to remove all the polyps. Cecal and ascending colon polyps removed, they were big but not worrisome for malignancy. At this point I would be concerned about high-grade dysplasia because of the length of the procedure I opted to stop at this point so as to await for pathology and then make a decision regarding further colonoscopies versus right hemicolectomy the rest of the colon appeared to be unremarkable for the most part. Pathology of small intestine duodenal mucosa with foveolar metaplasia, adenomatous polyps and tubulovillous adenomas, multiple fragments. Reports dark brown stool, no hematemesis and no rectal bleeding. CT scan abdomen and pelvis (01/22/17)----> Spontaneous hemorrhage involving the right mid pole kidney measuring 6.5 cm in size. This obscures the previously seen cortical based lesion. I am unsure if this hemorrhage relates to spontaneous hemorrhage within that lesion. A followup MRI of the kidneys with and without gadolinium is suggested following resolution of the hemorrhage to better evaluate that lesion. 2. Right basilar atelectasis. 3. Fenestrated endograft. 4 Chronic pancreatitis. 5. 1.6 bladder stone. S/P 2 units PRBC. HH stable since transfusion, HH 7.9/23.7. Will plan for repeat EGD/Colonoscopy in am. INR 2.5. - Change in stool with constipation. One week hx of back pain with constipation. + Stool - ASUNCION with ckd. Creat. 1.32 - Right kidney hemorrhage on CT scan. INR 2.5. following. - Back pain (right sided), ? r/t right kidney Improved - Hx colon polyps, Colonoscopy as above. pathology adenomatous polyps and tubulovillous adenomas, multiple fragments. - Hx esophagitis, duodenal avms. PPI - Chronic pancreatitis. Stable. - Atrial fibrillation on coumadin. INR 2.5 - Hyperlipidemia, CAD, S/P PCI, stent, COPD, CHF, DM PLAN: - Plan for EGD/colonoscopy in a.m. - Obtain consents - Okay for heart healthy diabetic diet for breakfast - Clear liquids starting at lunch - Nothing by mouth after midnight - GoLYTELY prep - INR in a.m., notify GI if INR > 2.0 in am - Monitor HH - Transfuse as necessary - following - Supportive care - Pt seen and examined by Dr. Feldman and myself and this note is written on his behalf (Jazz Mejia) Physician Comments Patient seen and examined Agree with above Continue with current supportive care Monitor labs Plan on colonoscopy tomorrow We will transfuse with fresh frozen plasma so as to correct his PT INR (Phuc Feldman MD) Jazz Mejia Jan 24, 2017 09:44 Phuc Feldman MD Jan 24, 2017 17:49
--- NOTE | 2017-01-24 11:50 | HHI.PR ---
Subjective Remarks Patient reports he is feeling better. GI planning for EGD/colonoscopy tomorrow morning. Objective Vitals Vital Signs Date Time Temp Pulse Resp B/P (MAP) Pulse Ox O2 Delivery O2 Flow Rate FiO2 01/24/17 10:59 97 01/24/17 08:00 97.8 67 18 141/67 (91) 97 01/24/17 04:00 98.3 57 18 145/72 (96) 96 01/24/17 00:00 98.4 57 18 147/69 (95) 97 01/23/17 20:00 98.0 78 18 163/70 (101) 98 01/23/17 19:30 98.0 71 18 163/70 (101) 98 01/23/17 17:30 98.0 71 18 163/70 (101) 98 I/O 01/23/17 01/23/17 01/23/17 01/24/17 01/24/17 01/24/17 07:00 15:00 23:00 07:00 15:00 23:00 Intake Total 1999 ml 1377 ml 911 ml Output Total 1400 ml 200 ml 900 ml Balance 599 ml 1177 ml 11 ml Intake Oral 480 ml IV Total 1999 ml 897 ml 911 ml Output Urine Total 1400 ml 200 ml 900 ml # Bowel Movements 0 Result Diagram: 01/24/1771301/24/17713 Objective Remarks GENERAL: Elderly male in no apparent distress. CARDIOVASCULAR: Normal rate and regular rhythm without murmurs, gallops, or rubs. RESPIRATORY: Good respiratory efforts. Breath sounds equal and clear to auscultation bilaterally. GASTROINTESTINAL: Abdomen soft, non-tender, non-distended. Normal active bowel sounds MUSCULOSKELETAL: Extremities without cyanosis, or edema. NEURO: Alert & Oriented x4 to person, place, time, situation. Moves all ext x4 PSYCH: Appropriate mood and affect. A/P Assessment and Plan 71-year-old male with: Right Kidney Hemorrhage CT abdomen showed spontaneous hemorrhage involving the right mid pole kidney measuring 6.5 cm in size. Urology following recommends continuing medical management with serial H&H and abdominal exam. pain management as needed. Patient appeared to be clinically stable at this point. Bladder Stone CT abdomen showed bladder stone measuring 1.61cm urology following GI Bleed- etiology unknown at this time last colonoscopy performed 11/2016 showed multiple colonic polyps Status post 2 units of PRBC Pt is anticoagulated on warfarin for afib. INR is 3.7, Coumadin reversed. Repeat INR 2.5. No obvious bleeding. Clear liquid diet per GI. EGD/colonoscopy monitor labs Anemia- etiology unknown at this time S/P 2 units of pRBC on iron supplementation before admission GI following monitor labs Chronic Kidney Disease BUN and Cr levels appears at baseline at this time on IVF monitor renal function Hypertension on carvedilol, hydralazine, losartan hold BP meds if SBP<110 Hyperlipidemia on pravastatin Diabetes Mellitus with neuropathy and retinopathy SSI daily accuchecks Tobacco Use - Patient counseled on cessation. Severe protein calorie malnutrition albumin 1.9 total protein 6.1 muscle atrophy, bitemporal wasting, UE & LE wasting add ensure consult credit operations specialist Physical deconditioning. Consult PT DVT prophylaxis- chemical prophylaxis contraindicated at this time secondary to active bleeding SCD/TEDss Harvey Brooks MD Jan 24, 2017 11:50
[2017-01-24] MEDS ORDERED: PEG (High)/E-LYTE SOLN 4000 ML BTL PO ONE (16:00)
[2017-01-24] MEDS: MORPHINE SULFATE 2 MG/ML INJ IV PUSH PRN (19:52)
[2017-01-25] VITALS (9 sets, daily range): BP systolic 97–177; BP diastolic 62–167; PULSE 55–73; RESP 16–20; TEMP 97.4–98.2; O2SAT 96–99
[2017-01-25] MEDS: SODIUM CHLOR 0.9% 1000 ML INJ 1,000 ML IV SCH ×2 (05:14→18:30)
[2017-01-25] MEDS ORDERED: CHLORHEXIDINE GLUCONATE 2 % 1 PACK (2 CLOTHS) TOPICAL PRN (05:30)
[2017-01-25] MEDS ORDERED: SODIUM CHLORID 0.9% 500 ML IV PRN (05:30)
[2017-01-25] MEDS ORDERED: LACTATED RINGER'S 1000 ML IV PRN (05:30)
[2017-01-25] MEDS ORDERED: POVIDONE IODINE 5% (ANTISEPSIS KIT) 4 APPLICATIONS EACH NARE PRN (05:30)
[2017-01-25] MEDS ORDERED: METOPROLOL TARTRATE 25 MG TAB PO PRN (05:30)
[2017-01-25] MEDS: INSULIN ASPART SUPPLEMENTAL SCALE SQ SCH ×4 (08:00→20:00)
[2017-01-25] MEDS: SODIUM CHLORIDE 0.9% FLUSH 10 ML FLUSH IV FLUSH SCH ×2 (09:00→20:00)
--- NOTE | 2017-01-25 09:04 | HHI.FF ---
Face to Face Verification Diagnosis: (1) ASNUCION (acute kidney injury) (2) HTN (hypertension) (3) DM (diabetes mellitus) (4) GI bleed (5) Symptomatic anemia (6) CAD (coronary artery disease) Home Health Nursing Order: Medical education Signs/symptoms of disease process Nursing assessment with vital signs White catheter maintenance I have seen patient Storm Mary on 01/25/17. My clinical findings support the need for the requested home health care services because: Limited ability to care for self I certify that my clinical findings support that this patient is homebound because: Unsteady gait/balance Alpa Bruce Jan 25, 2017 09:04
[2017-01-25] MEDS: CALCITRIOL 0.25 MCG CAP PO SCH (09:40)
[2017-01-25] MEDS: PRAVASTATIN SOD 40 MG TAB PO SCH (09:40)
[2017-01-25] MEDS: hydrALAZINE HCL 10 MG TAB PO SCH ×3 (09:40→17:40)
[2017-01-25] MEDS: CARVEDILOL 3.125 MG TAB PO SCH ×2 (09:40→20:00)
[2017-01-25] MEDS: FERROUS SULFATE 325 MG (65 MG ELEMENTAL IRON) TAB PO SCH (09:40)
[2017-01-25] MEDS: LOSARTAN 25 MG TAB PO SCH (09:40)
[2017-01-25] MEDS: DOCUSATE SODIUM 50 MG/SENNA 8.6 MG TAB PO SCH ×2 (09:40→19:51)
[2017-01-25] MEDS: CHOLECALCIFEROL (VIT D3) 5000 UNIT CAP PO SCH (09:41)
[2017-01-25] MEDS ORDERED: PROPOFOL 200 MG/20 ML AMP ONE (12:56)
[2017-01-25] MEDS ORDERED: DO NOT ADM ANY ANTICOAGULANT DRUGS PRN (13:53)
--- NOTE | 2017-01-25 13:57 | PD.PROCEDR ---
GI Procedure REFERRING PHYSICIAN PRE[facility]ON PROCEDURE PERFORMED Incomplete colonoscopy due to poor prep scope was advanced to the sigmoid region INDICATION FOR PROCEDURE Known colon polyps PROCEDURE: The procedure, risks and benefits were discussed with Mr. Mary and informed consent was obtained. Anesthesia sedated him with Diprivan. He was placed in the left lateral decubitus position. Colonoscopy: The Pentax videoscope was introduced through the rectum and advanced to sigmoid colon. Retroflexion was performed in the rectum. Colonic prep was very poor FINDINGS: 1 little colonic mucosa that was seen was unremarkable but there was great deal of limitation to evaluating the colon to 2 solid stools and the procedure was then terminated ESTIMATED BLOOD LOSS: None SPECIMENS REMOVED: None COMPLICATIONS: None IMPRESSION: Incomplete colonoscopy History of colon polyps PLAN: Reschedule colonoscopy for tomorrow additional prepping today Phuc Feldman MD Jan 25, 2017 13:57
[2017-01-25] MEDS ORDERED: PEG (High)/E-LYTE SOLN 4000 ML BTL PO ONE (14:00)
--- NOTE | 2017-01-25 15:59 | HHI.PR ---
Subjective Remarks Poor prep for colonoscopy. GI plan to repeat tomorrow. NO other issues. Objective Vitals Vital Signs Date Time Temp Pulse Resp B/P (MAP) Pulse Ox O2 Delivery O2 Flow Rate FiO2 01/25/17 14:13 96.9 59 16 138/65 (89) 96 01/25/17 11:35 97.6 61 18 156/69 (98) 97 01/25/17 09:36 96 01/25/17 08:30 Room Air 01/25/17 07:00 97.9 67 20 147/67 (93) 99 01/25/17 07:00 98.0 67 19 158/67 (97) 96 01/25/17 06:45 97.9 70 20 177/77 (110) 01/25/17 04:00 Room Air 01/25/17 04:00 98.2 66 20 133/62 (85) 96 01/25/17 00:00 98.2 73 18 127/62 (83) 96 01/25/17 00:00 Room Air 01/24/17 20:00 97.3 65 18 151/70 (97) 97 01/24/17 20:00 Room Air 01/24/17 17:50 97 21 01/24/17 16:00 98.2 57 18 152/80 (104) 97 I/O 01/24/17 01/24/17 01/24/17 01/25/17 01/25/17 01/25/17 06:59 14:59 22:59 06:59 14:59 22:59 Intake Total 911 ml 840 ml 0 ml 428 ml Output Total 900 ml 950 ml 800 ml Balance 11 ml -110 ml -800 ml 428 ml Intake Oral 840 ml 0 ml IV Total 911 ml FFP 328 ml Other 100 ml Output Urine Total 900 ml 950 ml 800 ml # Bowel Movements 0 4 Result Diagram: 01/24/1771301/24/17713 Objective Remarks GENERAL: Elderly male in no apparent distress. CARDIOVASCULAR: Normal rate and regular rhythm without murmurs, gallops, or rubs. RESPIRATORY: Good respiratory efforts. Breath sounds equal and clear to auscultation bilaterally. GASTROINTESTINAL: Abdomen soft, non-tender, non-distended. Normal active bowel sounds MUSCULOSKELETAL: Extremities without cyanosis, or edema. NEURO: Alert & Oriented x4 to person, place, time, situation. Moves all ext x4 PSYCH: Appropriate mood and affect. A/P Assessment and Plan 71-year-old male with: Right Kidney Hemorrhage CT abdomen showed spontaneous hemorrhage involving the right mid pole kidney measuring 6.5 cm in size. Urology following recommends continuing medical management with serial H&H and abdominal exam. pain management as needed. Patient appeared to be clinically stable at this point. Bladder Stone CT abdomen showed bladder stone measuring 1.61cm urology following GI Bleed- etiology unknown at this time last colonoscopy performed 11/2016 showed multiple colonic polyps Status post 2 units of PRBC Pt is anticoagulated on warfarin for afib. INR is 3.7, Coumadin reversed. Repeat INR 2.5. No obvious bleeding. Colonoscopy attempted today but prep inadequate. GI to repeat Colonoscopy tomorrow. monitor labs Anemia- etiology unknown at this time S/P 2 units of pRBC on iron supplementation before admission GI following monitor labs Chronic Kidney Disease BUN and Cr levels appears at baseline at this time on IVF monitor renal function Hypertension on carvedilol, hydralazine, losartan hold BP meds if SBP<110 Hyperlipidemia on pravastatin Diabetes Mellitus with neuropathy and retinopathy SSI daily accuchecks Tobacco Use - Patient counseled on cessation. Severe protein calorie malnutrition albumin 1.9 total protein 6.1 muscle atrophy, bitemporal wasting, UE & LE wasting add ensure consult precision honer Physical deconditioning. Consult PT DVT prophylaxis- chemical prophylaxis contraindicated at this time secondary to active bleeding SCD/TEDss Discharge Planning DC pending colonoscopy findings. Harvey Brooks MD Jan 25, 2017 15:59
--- NOTE | 2017-01-25 16:01 | HHI.PR ---
Subjective Patient symptoms today Stable Hgb. Continue conservative management. Once medically stable, patient may be discharged with Urology follow-up in clinic with sands in place Objective Result Diagram: 01/24/17 0714 01/24/17 0714 Assessment and Plan Problem List: (1) NSTEMI (non-ST elevated myocardial infarction) ICD Code: I21.4 - NSTEMI (non-ST elevated myocardial infarction) Status: Acute (2) DM (diabetes mellitus) ICD Code: E11.9 - DM (diabetes mellitus) Status: Chronic (3) HTN (hypertension) ICD Code: I10 - HTN (hypertension) Status: Chronic (4) ASUNCION (acute kidney injury) ICD Code: N17.9 - Acute kidney failure, unspecified Status: Acute (5) Atrial fibrillation with RVR ICD Code: I48.91 - Unspecified atrial fibrillation Status: Acute (6) UTI (urinary tract infection) ICD Code: N39.0 - Urinary tract infection, site not specified Status: Acute Yosef Schroeder MD Jan 25, 2017 16:01
[2017-01-25 18:41] LABS: AUTOMATED NEUTROPHIL # 6.5 TH/MM3 (1.8-7.7); BASOPHIL # 0.1 TH/MM3 (0-0.2); BASOPHIL % 0.9 % (0.0-2.0); EOSINOPHIL # 0.1 TH/MM3 (0-0.4); EOSINOPHIL % 1.4 % (0.0-4.0); HEMATOCRIT 23.6 % (39.0-51.0); HEMO FLAGS DIFF FINAL; LYMPH % 15.9 % (9.0-44.0); LYMPHOCYTE # 1.4 TH/MM3 (1.0-4.8); MEAN CELL VOLUME 89.1 FL (80.0-100.0); MEAN CORPUSCULAR HEMOGLOBIN 29.6 PG (27.0-34.0); MEAN CORPUSCULAR HGB CONC 33.2 % (32.0-36.0); MONO % 7.6 % (0.0-8.0); NEUT % 74.2 % (16.0-70.0); PLATELET COUNT 192 TH/MM3 (150-450); RED BLOOD COUNT 2.65 MIL/MM3 (4.50-5.90); RED CELL DISTRIBUTION WIDTH 17.9 % (11.6-17.2); WHITE BLOOD COUNT 8.8 TH/MM3 (4.0-11.0)
[2017-01-25 19:00] LABS: INTERNATIONAL NORMALIZED RATIO 2.2 RATIO; PROTHROMBIN TIME - PATIENT 24.9 SEC (9.8-11.6)
[2017-01-25 19:06] LABS: BICARBONATE 19.1 MEQ/L (21.0-32.0); POTASSIUM 4.2 MEQ/L (3.5-5.1)
[2017-01-26] VITALS (7 sets, daily range): BP systolic 151–160; BP diastolic 72–83; PULSE 60–67; RESP 18–20; TEMP 97–97.9; O2SAT 94–98
[2017-01-26] MEDS ORDERED: MAGNESIUM CITRATE SOLN 300 ML BTL PO ONE (06:00)
[2017-01-26] MEDS: INSULIN ASPART SUPPLEMENTAL SCALE SQ SCH ×4 (08:00→21:00)
[2017-01-26] MEDS: CALCITRIOL 0.25 MCG CAP PO SCH (08:06)
[2017-01-26] MEDS: PRAVASTATIN SOD 40 MG TAB PO SCH (08:06)
[2017-01-26] MEDS: CHOLECALCIFEROL (VIT D3) 5000 UNIT CAP PO SCH (08:06)
[2017-01-26] MEDS: LOSARTAN 25 MG TAB PO SCH (08:06)
[2017-01-26] MEDS: hydrALAZINE HCL 10 MG TAB PO SCH ×3 (08:06→17:18)
[2017-01-26] MEDS: FERROUS SULFATE 325 MG (65 MG ELEMENTAL IRON) TAB PO SCH (08:06)
[2017-01-26] MEDS: CARVEDILOL 3.125 MG TAB PO SCH ×2 (08:06→21:05)
[2017-01-26] MEDS: SODIUM CHLOR 0.9% 1000 ML INJ 1,000 ML IV SCH ×2 (08:07→21:53)
[2017-01-26] MEDS: DOCUSATE SODIUM 50 MG/SENNA 8.6 MG TAB PO SCH ×2 (08:12→21:00)
[2017-01-26] MEDS: SODIUM CHLORIDE 0.9% FLUSH 10 ML FLUSH IV FLUSH SCH ×2 (08:12→21:00)
[2017-01-26 09:54] LABS: HEMATOCRIT 23.3 % (39.0-51.0); MEAN CELL VOLUME 88.1 FL (80.0-100.0); MEAN CORPUSCULAR HEMOGLOBIN 29.2 PG (27.0-34.0); MEAN CORPUSCULAR HGB CONC 33.1 % (32.0-36.0); PLATELET COUNT 199 TH/MM3 (150-450); RED BLOOD COUNT 2.64 MIL/MM3 (4.50-5.90); RED CELL DISTRIBUTION WIDTH 17.6 % (11.6-17.2); REVIEW FLAG FINAL; WHITE BLOOD COUNT 9.2 TH/MM3 (4.0-11.0)
[2017-01-26 10:10] LABS: INTERNATIONAL NORMALIZED RATIO 2.2 RATIO; PROTHROMBIN TIME - PATIENT 24.9 SEC (9.8-11.6)
--- NOTE | 2017-01-26 11:43 | HHI.GIFU ---
Subjective Remarks Resting in bed. Upset, states he is still having diarrhea from the Golytely 2 days ago and is upset that it was ordered again. Attempted to explain to patient that he had a poor prep with his colonoscopy and the need for a good prep to visualize the colon, especially with history of precancerous polyps. Pt seems to be fixated on his diarrhea and does not want to hear any explanations. States that he is taking pictures so he can prove what we have done once he is discharged. Explained to patient again the reason for the colonoscopy and possible need for hemicolectomy, but he does not wish to speak about that and continues to complain about his diarrhea and his liquid diet. (Jazz Mejia) Objective Vitals I&O Vital Signs Date Time Temp Pulse Resp B/P (MAP) Pulse Ox O2 Delivery O2 Flow Rate FiO2 01/26/17 10:12 98 01/26/17 08:20 Room Air 01/26/17 08:00 97.9 61 20 154/74 (100) 98 01/26/17 04:00 97.7 60 20 158/74 (102) 97 01/26/17 04:00 Room Air 01/26/17 00:00 97.8 66 18 151/72 (98) 97 01/26/17 00:00 Room Air 01/25/17 20:00 97.7 65 18 97/167 (144) 01/25/17 20:00 Room Air 01/25/17 17:54 98 21 01/25/17 16:00 97.4 55 16 156/70 (98) 98 01/25/17 14:13 96.9 59 16 138/65 (89) 96 01/25/17 11:35 97.6 61 18 156/69 (98) 97 I/O 01/25/17 01/25/17 01/25/17 01/26/17 01/26/17 01/26/17 07:00 15:00 23:00 07:00 15:00 23:00 Intake Total 0 ml 428 ml 480 ml Output Total 800 ml 500 ml 1125 ml Balance -800 ml 428 ml -20 ml -1125 ml Intake Oral 0 ml 480 ml FFP 328 ml Other 100 ml Output Urine Total 800 ml 500 ml 1125 ml # Bowel Movements 4 3 4 Laboratory Laboratory Tests Test 01/25/17 18:03 01/26/17 08:51 White Blood Count 8.8 9.2 Red Blood Count 2.65 2.64 Hemoglobin 7.9 7.7 Hematocrit 23.6 23.3 Mean Corpuscular Volume 89.1 88.1 Mean Corpuscular Hemoglobin 29.6 29.2 Mean Corpuscular Hemoglobin Concent 33.2 33.1 Red Cell Distribution Width 17.9 17.6 Platelet Count 192 199 Mean Platelet Volume 10.0 9.9 Neutrophils (%) (Auto) 74.2 Lymphocytes (%) (Auto) 15.9 Monocytes (%) (Auto) 7.6 Eosinophils (%) (Auto) 1.4 Basophils (%) (Auto) 0.9 Neutrophils # (Auto) 6.5 Lymphocytes # (Auto) 1.4 Monocytes # (Auto) 0.7 Eosinophils # (Auto) 0.1 Basophils # (Auto) 0.1 CBC Comment DIFF FINAL Differential Comment Prothrombin Time 24.9 24.9 Prothromb Time International Ratio 2.2 2.2 Blood Urea Nitrogen 22 Creatinine 1.24 Random Glucose 99 Calcium Level 7.7 Sodium Level 143 Potassium Level 4.2 Chloride Level 115 Carbon Dioxide Level 19.1 Anion Gap 9 Estimat Glomerular Filtration Rate 57 Date/Time Source Procedure Growth Status 01/22/17 09:10 Urine Clean Catch Urine Culture - Final Klebsiella Pneumoniae Complete Imaging Last Impressions Abdomen/Pelvis CT 01/22/17 0904 Signed Impressions: Service Date/Time: Sunday, January 22, 2017 09:53 - CONCLUSION: 1. Spontaneous hemorrhage involving the right mid pole kidney measuring 6.5 cm in size. This obscures the previously seen cortical based lesion. I am unsure of this hemorrhage relates to spontaneous hemorrhage within that lesion. A followup MRI of the kidneys with and without gadolinium is suggested following resolution of the hemorrhage to better evaluate that lesion. 2. Right basilar atelectasis. 3. Fenestrated endograft. 4. Chronic pancreatitis. 5. 1.6 cm bladder stone. Blaze Del Valle Jr., MD Physical Exam HEENT: Normocephalic; atraumatic; no jaundice. CHEST: Course breath sounds, resp. even/unlabored CARDIAC: RRR ABDOMEN: Soft, nondistended, nontender; no hepatosplenomegaly; bowel sounds are present in all four quadrants. EXTREMITIES: No clubbing, cyanosis, or edema. SKIN: Normal; no rash; no jaundice. MARKETING OPERATIONS ASSOCIATE: No focal deficits; alert and oriented times three. ([facility]azz [facility]) Assessment and Plan Plan ASSESSMENT: - Severe anemia. S/P EGD/Colonoscopy (11/23/16)----> nodular duodenitis, multiple colon polyps-especially in cecum, ascending, and transverse colon, unable to get good positioning to remove all the polyps. Cecal and ascending colon polyps removed, they were big but not worrisome for malignancy. At this point I would be concerned about high-grade dysplasia because of the length of the procedure I opted to stop at this point so as to await for pathology and then make a decision regarding further colonoscopies versus right hemicolectomy the rest of the colon appeared to be unremarkable for the most part. Pathology of small intestine duodenal mucosa with foveolar metaplasia, adenomatous polyps and tubulovillous adenomas, multiple fragments. Reports dark brown stool, no hematemesis and no rectal bleeding. CT scan abdomen and pelvis (01/22/17)----> Spontaneous hemorrhage involving the right mid pole kidney measuring 6.5 cm in size. This obscures the previously seen cortical based lesion. I am unsure if this hemorrhage relates to spontaneous hemorrhage within that lesion. A followup MRI of the kidneys with and without gadolinium is suggested following resolution of the hemorrhage to better evaluate that lesion. 2. Right basilar atelectasis. 3. Fenestrated endograft. 4 Chronic pancreatitis. 5. 1.6 bladder stone. S/P 2 units PRBC. S/P EGD/Incomplete colonoscopy (01/25/17)----> Incomplete colonoscopy, History of colon polyps. Recommended repeat colonoscopy with better prep, but patient is absolutely refusing and states that he is still having diarrhea from the prep 2 days ago. - Multiple colon polyps, adenomatous and tubulovillous. Pt refusing repeat colonoscopy. May need to consider hemicolectomy, but patient is upset about diarrhea and liquid diet from bowel prep and is refusing to discuss this or repeat colonoscopy. - Change in stool with constipation. One week hx of back pain with constipation. + Stool - ASUNCION with ckd. Improved. - Right kidney hemorrhage on CT scan. INR 2.2. following. - Back pain (right sided), ? r/t right kidney Improved - Hx colon polyps, Colonoscopy as above. pathology adenomatous polyps and tubulovillous adenomas, multiple fragments. - Hx esophagitis, duodenal avms. PPI - Chronic pancreatitis. Stable. - Atrial fibrillation on coumadin. INR 2.2 - Hyperlipidemia, CAD, S/P PCI, stent, COPD, CHF, DM PLAN: - Heart healthy diet - Monitor HH - Transfuse as necessary - following - Recommend repeat colonoscopy secondary to incomplete colonoscopy due to poor prep- pt refusing - Pt has had multiple large polyps (adenematous and tubulovillous), refusing further colonoscopy. Recommend surgical evaluation for possible hemicolectomy, but patient seems to be fixated on diarrhea r/t bowel prep and being on a liquid diet and is refusing to discuss. - Further recommendations to follow based on results of above - Pt seen and examined by Dr. Feldman and myself and this note is written on his behalf Now agreeable for repeat colonoscopy. Will plan for Sunday with clear liquid diet and Golytely Sunday and Sunday for 2 day prep- D/W patient and he is agreeable. (Jazz Mejia) Physician Comments Patient seen and examined Agree with above Continue with current supportive care Monitor labs Colonoscopy on Sunday (Phuc Feldman MD) Jazz Mejia Jan 26, 2017 11:43 Phuc Feldman MD Jan 26, 2017 20:51
--- NOTE | 2017-01-26 15:37 | HHI.PR ---
Subjective Remarks Written by Alpa Bruce, acting as scribe for Dr. Brooks on 01/26/17 at 15: 24. Follow up right kidney hemorrhage and GI bleed. Patient seen and examined, lying in bed comfortably. Denies any new acute events overnight. Does state that he is continually having diarrhea and did refuse colonoscopy today. Explained to patient that this is an expected result of taking prep for colonoscopy. Patient educated on importance of obtaining procedure and now agreeable to colonoscopy. GI updated and aware. Denies any new complaints including fever, chills, chest pain, cough, shortness of breath, ab pain, n/v or dysuria. Objective Vitals Vital Signs Date Time Temp Pulse Resp B/P (MAP) Pulse Ox O2 Delivery O2 Flow Rate FiO2 01/26/17 12:00 97.9 63 20 159/74 (102) 96 01/26/17 10:12 98 01/26/17 08:20 Room Air 01/26/17 08:00 97.9 61 20 154/74 (100) 98 01/26/17 04:00 97.7 60 20 158/74 (102) 97 01/26/17 04:00 Room Air 01/26/17 00:00 97.8 66 18 151/72 (98) 97 01/26/17 00:00 Room Air 01/25/17 20:00 97.7 65 18 97/167 (144) 01/25/17 20:00 Room Air 01/25/17 17:54 98 21 01/25/17 16:00 97.4 55 16 156/70 (98) 98 I/O 01/25/17 01/25/17 01/25/17 01/26/17 01/26/17 01/26/17 07:00 15:00 23:00 07:00 15:00 23:00 Intake Total 0 ml 428 ml 480 ml Output Total 800 ml 500 ml 1125 ml Balance -800 ml 428 ml -20 ml -1125 ml Intake Oral 0 ml 480 ml FFP 328 ml Other 100 ml Output Urine Total 800 ml 500 ml 1125 ml # Bowel Movements 4 3 4 Result Diagram: 01/26/17 0851 01/25/17 1803 Imaging Last Impressions Abdomen/Pelvis CT 01/22/17 0904 Signed Impressions: Service Date/Time: Sunday, January 22, 2017 09:53 - CONCLUSION: 1. Spontaneous hemorrhage involving the right mid pole kidney measuring 6.5 cm in size. This obscures the previously seen cortical based lesion. I am unsure of this hemorrhage relates to spontaneous hemorrhage within that lesion. A followup MRI of the kidneys with and without gadolinium is suggested following resolution of the hemorrhage to better evaluate that lesion. 2. Right basilar atelectasis. 3. Fenestrated endograft. 4. Chronic pancreatitis. 5. 1.6 cm bladder stone. Blaze Del Valle Jr., MD Objective Remarks GENERAL: Elderly male, lying in bed comfortably in no apparent distress. CARDIOVASCULAR: Normal rate and regular rhythm without murmurs, gallops, or rubs. S1 and S2 present. RESPIRATORY: Good respiratory efforts. Breath sounds equal and clear to auscultation bilaterally. No wheezing. GASTROINTESTINAL: Abdomen soft, non-tender, non-distended. Normal active bowel sounds. MUSCULOSKELETAL: Extremities without cyanosis, or edema. NEURO: Alert & Oriented x4 to person, place, time, situation. Moves all ext x4 PSYCH: Appropriate mood and affect. A/P Assessment and Plan 71-year-old male with: Right Kidney Hemorrhage CT abdomen showed spontaneous hemorrhage involving the right mid pole kidney measuring 6.5 cm in size. Urology following recommends continuing medical management with serial H&H and abdominal exam. Pain management as needed. Patient appeared to be clinically stable at this point. Bladder Stone CT abdomen showed bladder stone measuring 1.61cm Urology following, recommends follow up in the outpatient setting and dc with White in place. GI Bleed- etiology unknown at this time last colonoscopy performed 11/2016 showed multiple colonic polyps Status post 2 units of PRBC on 01/22/17 Pt is anticoagulated on warfarin for afib. INR was 3.7 on presentation, Coumadin reversed. Current INR 2.2. No obvious bleeding. Colonoscopy attempted yesterday but prep inadequate. GI planned for repeat colonoscopy today but patient refused. Now agreeable to attempt Golytely prep and GI plan for colonoscopy on Sunday with two days of prep. Continue to monitor labs Anemia- etiology unknown at this time S/P 2 units of PRBC on iron supplementation before admission, continue GI following, appreciate input. monitor labs Chronic Kidney Disease BUN and Cr levels appears at baseline at this time on IVF, continue monitor renal function Hypertension on carvedilol, hydralazine, losartan hold BP meds if SBP<110 BP stable at this time, monitor trends. Hyperlipidemia on pravastatin Diabetes Mellitus with neuropathy and retinopathy SSI daily accuchecks Currently well-controlled. Tobacco Use Patient counseled on cessation. Severe protein calorie malnutrition albumin 1.9 total protein 6.1 muscle atrophy, bitemporal wasting, UE & LE wasting Continue ensure. Interior Painter has seen patient, with recommendations of adding Glucerna shakes when diet advanced. Following. Physical deconditioning. Consult PT DVT prophylaxis- chemical prophylaxis contraindicated at this time secondary to active bleeding SCD/TEDs This note was transcribed by scribgretel [Alpa Bruce]. I, Dr. Harvey Brooks personally performed the history, physical exam, and medical decision making; and confirmed the accuracy of the information in the transcribed note. Authenticated by Dr. Harvey Brooks on 01/26/17 at 1530. Alpa Bruce Jan 26, 2017 15:37 Harvey Brooks MD Jan 26, 2017 16:25
[2017-01-27] VITALS (7 sets, daily range): BP systolic 137–164; BP diastolic 65–78; PULSE 61–69; RESP 16–20; TEMP 97.9–98.9; O2SAT 93–97
[2017-01-27 05:41] LABS: HEMATOCRIT 21.9 % (39.0-51.0); MEAN CELL VOLUME 88.2 FL (80.0-100.0); MEAN CORPUSCULAR HEMOGLOBIN 29.3 PG (27.0-34.0); MEAN CORPUSCULAR HGB CONC 33.2 % (32.0-36.0); PLATELET COUNT 181 TH/MM3 (150-450); RED BLOOD COUNT 2.49 MIL/MM3 (4.50-5.90); RED CELL DISTRIBUTION WIDTH 17.7 % (11.6-17.2); REVIEW FLAG FINAL; WHITE BLOOD COUNT 8.3 TH/MM3 (4.0-11.0)
[2017-01-27 06:35] LABS: BICARBONATE 17.6 MEQ/L (21.0-32.0); POTASSIUM 3.9 MEQ/L (3.5-5.1)
[2017-01-27 06:57] LABS: CALCIUM-PROTEIN CORRECTED 8.3 MG/DL (8.5-10.1)
[2017-01-27] MEDS: SODIUM CHLORIDE 0.9% FLUSH 10 ML FLUSH IV FLUSH SCH ×2 (07:41→20:16)
[2017-01-27] MEDS: INSULIN ASPART SUPPLEMENTAL SCALE SQ SCH ×4 (07:58→20:16)
[2017-01-27] MEDS: FERROUS SULFATE 325 MG (65 MG ELEMENTAL IRON) TAB PO SCH (08:12)
[2017-01-27] MEDS: SODIUM CHLOR 0.9% 1000 ML INJ 1,000 ML IV SCH (08:12)
[2017-01-27] MEDS: DOCUSATE SODIUM 50 MG/SENNA 8.6 MG TAB PO SCH ×2 (08:12→20:16)
[2017-01-27] MEDS: LOSARTAN 25 MG TAB PO SCH (08:12)
[2017-01-27] MEDS: CHOLECALCIFEROL (VIT D3) 5000 UNIT CAP PO SCH (08:12)
[2017-01-27] MEDS: PRAVASTATIN SOD 40 MG TAB PO SCH (08:12)
[2017-01-27] MEDS: CALCITRIOL 0.25 MCG CAP PO SCH (08:12)
[2017-01-27] MEDS: hydrALAZINE HCL 10 MG TAB PO SCH ×3 (08:12→17:07)
[2017-01-27] MEDS: CARVEDILOL 3.125 MG TAB PO SCH ×2 (08:12→20:16)
[2017-01-27] MEDS: CIPROFLOXACIN 250 MG TAB PO SCH ×2 (11:13→20:16)
--- NOTE | 2017-01-27 12:23 | HHI.PR ---
Subjective Remarks Seen for GI bleed, anemia and UTI. Patient has no complaints. No further diarrhea. Discussed with RN Objective Vitals Vital Signs Date Time Temp Pulse Resp B/P (MAP) Pulse Ox O2 Delivery O2 Flow Rate FiO2 01/27/17 09:20 93 Nasal Cannula 21 01/27/17 08:00 98.9 65 18 141/69 (93) 96 01/27/17 04:00 98.1 69 20 137/65 (89) 94 01/27/17 04:00 Room Air 01/27/17 00:00 Room Air 01/27/17 00:00 97.9 64 20 153/68 (96) 96 01/26/17 20:15 Room Air 01/26/17 17:53 94 21 01/26/17 16:00 97.0 67 20 160/83 (108) 94 I/O 01/26/17 01/26/17 01/26/17 01/27/17 01/27/17 01/27/17 07:00 15:00 23:00 07:00 15:00 23:00 Intake Total 2298 ml 940 ml Output Total 1125 ml 900 ml Balance -1125 ml 1398 ml 940 ml Intake Oral 720 ml IV Total 1578 ml 940 ml Output Urine Total 1125 ml 900 ml # Bowel Movements 4 1 Result Diagram: 01/27/17 0446 01/27/17 0446 Imaging Last Impressions Abdomen/Pelvis CT 01/22/17 0904 Signed Impressions: Service Date/Time: Sunday, January 22, 2017 09:53 - CONCLUSION: 1. Spontaneous hemorrhage involving the right mid pole kidney measuring 6.5 cm in size. This obscures the previously seen cortical based lesion. I am unsure of this hemorrhage relates to spontaneous hemorrhage within that lesion. A followup MRI of the kidneys with and without gadolinium is suggested following resolution of the hemorrhage to better evaluate that lesion. 2. Right basilar atelectasis. 3. Fenestrated endograft. 4. Chronic pancreatitis. 5. 1.6 cm bladder stone. Blaze Del Valle Jr., MD Objective Remarks GENERAL: Elderly male, lying in bed comfortably in no apparent distress. CARDIOVASCULAR: Normal rate and regular rhythm without murmurs, gallops, or rubs. S1 and S2 present. RESPIRATORY: Good respiratory efforts. Breath sounds equal and clear to auscultation bilaterally. No wheezing. GASTROINTESTINAL: Abdomen soft, non-tender, non-distended. Normal active bowel sounds. Sands in place draining yellow urine MUSCULOSKELETAL: Extremities without cyanosis, or edema. NEURO: Alert & Oriented x4 to person, place, time, situation. Moves all ext x4 PSYCH: Appropriate mood and affect. A/P Problem List: (1) Anemia ICD Code: D64.9 - Anemia, unspecified Status: Acute (2) GI bleed ICD Code: K92.2 - Gastrointestinal hemorrhage, unspecified Status: Acute (3) UTI (urinary tract infection) ICD Code: N39.0 - Urinary tract infection, site not specified Status: Acute Assessment and Plan 71-year-old male with: Right Kidney Hemorrhage CT abdomen showed spontaneous hemorrhage involving the right mid pole kidney measuring 6.5 cm in size. Urology following recommends continuing medical management with serial H&H and abdominal exam. Pain management as needed. Patient appeared to be clinically stable at this point. Bladder Stone CT abdomen showed bladder stone measuring 1.61cm Urology following, recommends follow up in the outpatient setting and dc with Sands in place. GI Bleed- etiology unknown at this time last colonoscopy performed 11/2016 showed multiple colonic polyps Status post 2 units of PRBC on 01/22/17 Pt is anticoagulated on warfarin for afib. INR was 3.7 on presentation, Coumadin reversed. Current INR 2.2. No obvious bleeding. Colonoscopy attempted but prep inadequate. GI planned for repeat colonoscopy but patient refused. Now agreeable to attempt Golytely prep and GI plan for colonoscopy on Sunday with two days of prep. Continue to monitor labs Anemia-due to acute blood loss S/P 2 units of PRBC on iron supplementation before admission, continue GI following, appreciate input. monitor labs Chronic Kidney Disease stage 3 BUN and Cr levels appears at baseline at this time on IVF, continue monitor renal function Hypertension on carvedilol, hydralazine, losartan hold BP meds if SBP<110 BP stable at this time, monitor trends. Hyperlipidemia on pravastatin Diabetes Mellitus with neuropathy and retinopathy SSI daily accuchecks Currently well-controlled. Tobacco Use Patient counseled on cessation. Severe protein calorie malnutrition albumin 1.9 total protein 6.1 muscle atrophy, bitemporal wasting, UE & LE wasting Continue ensure. Manager Cardiovascular has seen patient, with recommendations of adding Glucerna shakes when diet advanced. Following. Urinary tract infection with Klebsiella. Start Cipro for 14 days with chronic sands s/p exchange Physical deconditioning. Consult PT DVT prophylaxis- chemical prophylaxis contraindicated at this time secondary to active bleeding SCD/TEDs Discharge Planning Dc after C scope Problem Qualifiers (1) GI bleed: Qualified Codes: K92.2 - Gastrointestinal hemorrhage, unspecified Asad Franklin MD Jan 27, 2017 12:23
--- NOTE | 2017-01-27 13:47 | HHI.GIFU ---
Subjective Remarks Resting in bed in no distress. States he is not excited about having to start his bowel prep this afternoon, but is agreeable. He has had dark stool, but no conner red bleeding. He denies n/v. He is frustrated with not knowing where his blood loss is coming from. (Jazz Mejia) Objective Vitals I&O Vital Signs Date Time Temp Pulse Resp B/P (MAP) Pulse Ox O2 Delivery O2 Flow Rate FiO2 01/27/17 12:00 98.1 67 18 152/71 (98) 95 01/27/17 09:20 93 Nasal Cannula 21 01/27/17 08:00 98.9 65 18 141/69 (93) 96 01/27/17 04:00 98.1 69 20 137/65 (89) 94 01/27/17 04:00 Room Air 01/27/17 00:00 Room Air 01/27/17 00:00 97.9 64 20 153/68 (96) 96 01/26/17 20:15 Room Air 01/26/17 17:53 94 21 01/26/17 16:00 97.0 67 20 160/83 (108) 94 I/O 01/26/17 01/26/17 01/26/17 01/27/17 01/27/17 01/27/17 07:00 15:00 23:00 07:00 15:00 23:00 Intake Total 2298 ml 940 ml Output Total 1125 ml 900 ml Balance -1125 ml 1398 ml 940 ml Intake Oral 720 ml IV Total 1578 ml 940 ml Output Urine Total 1125 ml 900 ml # Bowel Movements 4 1 Laboratory Laboratory Tests Test 01/27/17 04:46 White Blood Count 8.3 Red Blood Count 2.49 Hemoglobin 7.3 Hematocrit 21.9 Mean Corpuscular Volume 88.2 Mean Corpuscular Hemoglobin 29.3 Mean Corpuscular Hemoglobin Concent 33.2 Red Cell Distribution Width 17.7 Platelet Count 181 Mean Platelet Volume 10.0 Blood Urea Nitrogen 17 Creatinine 1.18 Random Glucose 101 Total Protein 5.1 Calcium Level 7.2 Sodium Level 143 Potassium Level 3.9 Chloride Level 117 Carbon Dioxide Level 17.6 Anion Gap 8 Estimat Glomerular Filtration Rate 61 Protein Corrected Calcium 8.3 Date/Time Source Procedure Growth Status 01/22/17 09:10 Urine Clean Catch Urine Culture - Final Klebsiella Pneumoniae Complete Imaging Last Impressions Abdomen/Pelvis CT 01/22/17 0904 Signed Impressions: Service Date/Time: Sunday, January 22, 2017 09:53 - CONCLUSION: 1. Spontaneous hemorrhage involving the right mid pole kidney measuring 6.5 cm in size. This obscures the previously seen cortical based lesion. I am unsure of this hemorrhage relates to spontaneous hemorrhage within that lesion. A followup MRI of the kidneys with and without gadolinium is suggested following resolution of the hemorrhage to better evaluate that lesion. 2. Right basilar atelectasis. 3. Fenestrated endograft. 4. Chronic pancreatitis. 5. 1.6 cm bladder stone. Blaze Del Valle Jr., MD Physical Exam HEENT: Normocephalic; atraumatic; no jaundice. CHEST: Course breath sounds, resp. even/unlabored CARDIAC: RRR ABDOMEN: Soft, nondistended, nontender; no hepatosplenomegaly; bowel sounds are present in all four quadrants. EXTREMITIES: No clubbing, cyanosis, or edema. SKIN: Normal; no rash; no jaundice. ABAP DEVELOPER: No focal deficits; lethargic and oriented times three. (Jazz Mejia) Assessment and Plan Plan ASSESSMENT: - Severe anemia. S/P EGD/Colonoscopy (11/23/16)----> nodular duodenitis, multiple colon polyps-especially in cecum, ascending, and transverse colon, unable to get good positioning to remove all the polyps. Cecal and ascending colon polyps removed, they were big but not worrisome for malignancy. At this point I would be concerned about high-grade dysplasia because of the length of the procedure I opted to stop at this point so as to await for pathology and then make a decision regarding further colonoscopies versus right hemicolectomy the rest of the colon appeared to be unremarkable for the most part. Pathology of small intestine duodenal mucosa with foveolar metaplasia, adenomatous polyps and tubulovillous adenomas, multiple fragments. Reports dark brown stool, no hematemesis and no rectal bleeding. CT scan abdomen and pelvis (01/22/17)----> Spontaneous hemorrhage involving the right mid pole kidney measuring 6.5 cm in size. This obscures the previously seen cortical based lesion. I am unsure if this hemorrhage relates to spontaneous hemorrhage within that lesion. A followup MRI of the kidneys with and without gadolinium is suggested following resolution of the hemorrhage to better evaluate that lesion. 2. Right basilar atelectasis. 3. Fenestrated endograft. 4 Chronic pancreatitis. 5. 1.6 bladder stone. S/P 2 units PRBC. S/P Incomplete colonoscopy (01/25/17)----> Incomplete colonoscopy, History of colon polyps. HH slowly trending down, HH 7.3/21.9. Dark stool, but no other obvious bleeding. Plan is for repeat colonoscopy on Sunday with 2 day prep, he is agreeable. - Melena. Hx of duodenal avms, nodular duodnitis in November. Nurses report small black tarry stools. - Multiple colon polyps, adenomatous and tubulovillous. Now agreeable to repeat colonoscopy with longer bowel prep. May need to consider hemicolectomy - ASUNCION with ckd. Improved. - Right kidney hemorrhage on CT scan. following. - Back pain (right sided), ? r/t right kidney Improved - Hx colon polyps, Colonoscopy as above. pathology adenomatous polyps and tubulovillous adenomas, multiple fragments. - Hx esophagitis, duodenal avms. PPI - Chronic pancreatitis. Stable. - Atrial fibrillation on coumadin. - Hyperlipidemia, CAD, S/P PCI, stent, COPD, CHF, DM PLAN: - Plan for egd/colonoscopy on Sunday with 2 day prep - Obtain consents - Golytely prep today and tomorrow - NPO after MN Sunday night - Monitor HH - Transfuse as necessary - PPI - following - Supportive care - ? need for hemicolectomy, pending results of colonoscopy - Further recommendations to follow based on results of above - Pt seen and examined by Dr. Feldman and myself and this note is written on his behalf (Jazz Mejia) Physician Comments Patient seen and examined Agree with above Continue with current supportive care Monitor labs Colonoscopy on Sunday (Phuc Feldman MD) Jazz Mejia Jan 27, 2017 13:47 Phuc Feldman MD Jan 27, 2017 18:19
[2017-01-27] MEDS ORDERED: PEG (High)/E-LYTE SOLN 4000 ML BTL PO ONE (14:00)
[2017-01-28] VITALS (10 sets, daily range): BP systolic 152–180; BP diastolic 72–84; PULSE 51–69; RESP 16–20; TEMP 97.2–98.1; O2SAT 95–98
[2017-01-28] MEDS: SODIUM CHLOR 0.9% 1000 ML INJ 1,000 ML IV SCH ×3 (00:48→14:12)
[2017-01-28] MEDS: MORPHINE SULFATE 2 MG/ML INJ IV PUSH PRN ×3 (04:31→15:34)
[2017-01-28] MEDS: INSULIN ASPART SUPPLEMENTAL SCALE SQ SCH ×4 (08:00→21:00)
[2017-01-28] MEDS: PANTOPRAZOLE SOD 40 MG DELAYED RELEASE TAB PO SCH (08:17)
[2017-01-28] MEDS: CALCITRIOL 0.25 MCG CAP PO SCH (08:17)
[2017-01-28] MEDS: CIPROFLOXACIN 250 MG TAB PO SCH ×2 (08:17→21:14)
[2017-01-28] MEDS: LOSARTAN 25 MG TAB PO SCH (08:17)
[2017-01-28] MEDS: FERROUS SULFATE 325 MG (65 MG ELEMENTAL IRON) TAB PO SCH (08:17)
[2017-01-28] MEDS: PRAVASTATIN SOD 40 MG TAB PO SCH (08:17)
[2017-01-28] MEDS: CHOLECALCIFEROL (VIT D3) 5000 UNIT CAP PO SCH (08:18)
[2017-01-28] MEDS: CARVEDILOL 3.125 MG TAB PO SCH ×2 (08:18→21:14)
[2017-01-28] MEDS: DOCUSATE SODIUM 50 MG/SENNA 8.6 MG TAB PO SCH ×2 (08:18→21:00)
[2017-01-28] MEDS: hydrALAZINE HCL 10 MG TAB PO SCH ×3 (08:18→17:38)
[2017-01-28] MEDS: SODIUM CHLORIDE 0.9% FLUSH 10 ML FLUSH IV FLUSH SCH ×2 (09:00→21:15)
[2017-01-28 09:08] LABS: AUTOMATED NEUTROPHIL # 5.2 TH/MM3 (1.8-7.7); BASOPHIL # 0.1 TH/MM3 (0-0.2); BASOPHIL % 0.9 % (0.0-2.0); EOSINOPHIL # 0.1 TH/MM3 (0-0.4); EOSINOPHIL % 1.9 % (0.0-4.0); HEMO FLAGS DIFF FINAL; LYMPH % 17.1 % (9.0-44.0); LYMPHOCYTE # 1.3 TH/MM3 (1.0-4.8); MEAN CELL VOLUME 88.7 FL (80.0-100.0); MEAN CORPUSCULAR HEMOGLOBIN 28.6 PG (27.0-34.0); MEAN CORPUSCULAR HGB CONC 32.2 % (32.0-36.0); MONO % 9.2 % (0.0-8.0); NEUT % 70.9 % (16.0-70.0); PLATELET COUNT 182 TH/MM3 (150-450); RED CELL DISTRIBUTION WIDTH 17.5 % (11.6-17.2); WHITE BLOOD COUNT 7.4 TH/MM3 (4.0-11.0)
--- NOTE | 2017-01-28 11:41 | HHI.PR ---
Subjective Remarks Follow-up anemia. States he feels weak unable to get up and ambulate agrees with blood transfusion. Discussed with RN Objective Vitals Vital Signs Date Time Temp Pulse Resp B/P (MAP) Pulse Ox O2 Delivery O2 Flow Rate FiO2 01/28/17 10:30 96 01/28/17 09:27 Room Air 01/28/17 09:15 16 01/28/17 08:00 98.1 65 20 177/77 (110) 96 01/28/17 04:00 Room Air 01/28/17 04:00 97.9 69 18 156/73 (100) 96 01/28/17 00:00 Room Air 01/28/17 00:00 97.9 66 18 152/72 (98) 95 01/27/17 22:42 21 01/27/17 20:00 98.6 61 16 164/78 (106) 96 01/27/17 20:00 Room Air 01/27/17 16:00 97.9 65 18 152/72 (98) 97 01/27/17 15:04 Nasal Cannula 2.00 21 01/27/17 12:00 98.1 67 18 152/71 (98) 95 I/O 01/27/17 01/27/17 01/27/17 01/28/17 01/28/17 01/28/17 07:00 15:00 23:00 07:00 15:00 23:00 Intake Total 940 ml 780 ml 1240 ml Output Total 1800 ml 800 ml Balance 940 ml -1020 ml 440 ml Intake Oral 780 ml 240 ml IV Total 940 ml 1000 ml Output Urine Total 1800 ml 800 ml # Bowel Movements 6 1 Result Diagram: 01/28/17 0725 01/27/17 0446 Imaging Last Impressions Abdomen/Pelvis CT 01/22/1704 Signed Impressions: Service Date/Time: Sunday, January 22, 2017 09:53 - CONCLUSION: 1. Spontaneous hemorrhage involving the right mid pole kidney measuring 6.5 cm in size. This obscures the previously seen cortical based lesion. I am unsure of this hemorrhage relates to spontaneous hemorrhage within that lesion. A followup MRI of the kidneys with and without gadolinium is suggested following resolution of the hemorrhage to better evaluate that lesion. 2. Right basilar atelectasis. 3. Fenestrated endograft. 4. Chronic pancreatitis. 5. 1.6 cm bladder stone. Blaze Del Valle Jr., MD Objective Remarks GENERAL: Elderly male, lying in bed comfortably in no apparent distress. CARDIOVASCULAR: Normal rate and regular rhythm without murmurs, gallops, or rubs. S1 and S2 present. RESPIRATORY: Good respiratory efforts. Breath sounds equal and clear to auscultation bilaterally. No wheezing. GASTROINTESTINAL: Abdomen soft, non-tender, non-distended. Normal active bowel sounds. Sands in place draining yellow urine MUSCULOSKELETAL: Extremities without cyanosis, or edema. NEURO: Alert & Oriented x4 to person, place, time, situation. Moves all ext x4 PSYCH: Appropriate mood and affect. A/P Problem List: (1) Anemia ICD Code: D64.9 - Anemia, unspecified Status: Acute (2) GI bleed ICD Code: K92.2 - Gastrointestinal hemorrhage, unspecified Status: Acute (3) UTI (urinary tract infection) ICD Code: N39.0 - Urinary tract infection, site not specified Status: Acute Assessment and Plan 71-year-old male with: Right Kidney Hemorrhage CT abdomen showed spontaneous hemorrhage involving the right mid pole kidney measuring 6.5 cm in size. Urology following recommends continuing medical management with serial H&H and abdominal exam. Pain management as needed. Patient appeared to be clinically stable at this point. Bladder Stone CT abdomen showed bladder stone measuring 1.61cm Urology following, recommends follow up in the outpatient setting and dc with Sands in place. GI Bleed- etiology unknown at this time last colonoscopy performed 11/2016 showed multiple colonic polyps Status post 2 units of PRBC on 01/22/17 Pt is anticoagulated on warfarin for afib. INR was 3.7 on presentation, Coumadin reversed. Current INR 2.2. No obvious bleeding. Colonoscopy attempted but prep inadequate. GI planned for repeat colonoscopy but patient refused. Now agreeable to attempt Golytely prep and GI plan for colonoscopy tomorrow Sunday with two days of prep. Continue to monitor labs Anemia-due to acute blood loss. Symptomatic S/P 2 units of PRBC . We will transfuse 1 more unit today on iron supplementation before admission, continue GI following, appreciate input. monitor labs Chronic Kidney Disease stage 3 BUN and Cr levels appears at baseline at this time on IVF, continue monitor renal function Hypertension on carvedilol, hydralazine, losartan hold BP meds if SBP<110 BP stable at this time, monitor trends. Hyperlipidemia on pravastatin Diabetes Mellitus with neuropathy and retinopathy SSI daily accuchecks Currently well-controlled. Tobacco Use Patient counseled on cessation. Severe protein calorie malnutrition albumin 1.9 total protein 6.1 muscle atrophy, bitemporal wasting, UE & LE wasting Continue ensure. Cloth Handler has seen patient, with recommendations of adding Glucerna shakes when diet advanced. Following. Urinary tract infection with Klebsiella. Continue Cipro for 14 days with chronic sands s/p exchange A. fib with controlled ventricular response. Restart Coumadin when cleared by GI Physical deconditioning. Consult PT DVT prophylaxis- chemical prophylaxis contraindicated at this time secondary to active bleeding SCD/TEDs Discharge Planning Dc to home after C scope Problem Qualifiers (1) GI bleed: Qualified Codes: K92.2 - Gastrointestinal hemorrhage, unspecified Asad Franklin MD Jan 28, 2017 11:41
--- NOTE | 2017-01-28 12:03 | HHI.GIFU ---
Subjective Remarks Resting in bed in no apparent distress. Denies abdominal pain. States he feels tired. (Kimberli Rodriguez) Objective Vitals I&O Vital Signs Date Time Temp Pulse Resp B/P (MAP) Pulse Ox O2 Delivery O2 Flow Rate FiO2 01/28/17 10:30 96 01/28/17 09:27 Room Air 01/28/17 09:15 16 01/28/17 08:00 98.1 65 20 177/77 (110) 96 01/28/17 04:00 Room Air 01/28/17 04:00 97.9 69 18 156/73 (100) 96 01/28/17 00:00 Room Air 01/28/17 00:00 97.9 66 18 152/72 (98) 95 01/27/17 22:42 21 01/27/17 20:00 98.6 61 16 164/78 (106) 96 01/27/17 20:00 Room Air 01/27/17 16:00 97.9 65 18 152/72 (98) 97 01/27/17 15:04 Nasal Cannula 2.00 21 I/O 01/27/17 01/27/17 01/27/17 01/28/17 01/28/17 01/28/17 07:00 15:00 23:00 07:00 15:00 23:00 Intake Total 940 ml 780 ml 1240 ml Output Total 1800 ml 800 ml Balance 940 ml -1020 ml 440 ml Intake Oral 780 ml 240 ml IV Total 940 ml 1000 ml Output Urine Total 1800 ml 800 ml # Bowel Movements 6 1 Laboratory Laboratory Tests Test 01/28/17 07:25 White Blood Count 7.4 Red Blood Count 2.70 Hemoglobin 7.7 Hematocrit 24.0 Mean Corpuscular Volume 88.7 Mean Corpuscular Hemoglobin 28.6 Mean Corpuscular Hemoglobin Concent 32.2 Red Cell Distribution Width 17.5 Platelet Count 182 Mean Platelet Volume 9.7 Neutrophils (%) (Auto) 70.9 Lymphocytes (%) (Auto) 17.1 Monocytes (%) (Auto) 9.2 Eosinophils (%) (Auto) 1.9 Basophils (%) (Auto) 0.9 Neutrophils # (Auto) 5.2 Lymphocytes # (Auto) 1.3 Monocytes # (Auto) 0.7 Eosinophils # (Auto) 0.1 Basophils # (Auto) 0.1 CBC Comment DIFF FINAL Differential Comment Date/Time Source Procedure Growth Status 01/22/17 09:10 Urine Clean Catch Urine Culture - Final Klebsiella Pneumoniae Complete Imaging Last Impressions Abdomen/Pelvis CT 01/22/17 0904 Signed Impressions: Service Date/Time: Sunday, January 22, 2017 09:53 - CONCLUSION: 1. Spontaneous hemorrhage involving the right mid pole kidney measuring 6.5 cm in size. This obscures the previously seen cortical based lesion. I am unsure of this hemorrhage relates to spontaneous hemorrhage within that lesion. A followup MRI of the kidneys with and without gadolinium is suggested following resolution of the hemorrhage to better evaluate that lesion. 2. Right basilar atelectasis. 3. Fenestrated endograft. 4. Chronic pancreatitis. 5. 1.6 cm bladder stone. Blaze Del Valle Jr., MD Physical Exam HEENT: Normocephalic; atraumatic; no jaundice. CHEST: Course breath sounds, resp. even/unlabored CARDIAC: RRR ABDOMEN: Soft, nondistended, nontender; no hepatosplenomegaly; bowel sounds are present in all four quadrants. EXTREMITIES: No clubbing, cyanosis, or edema. SKIN: Normal; no rash; no jaundice. SUPERVISOR GAME FARM: No focal deficits; lethargic and oriented times three. (Kimberli Rodriguez) Assessment and Plan Plan ASSESSMENT: - Severe anemia. S/P EGD/Colonoscopy (11/23/16)----> nodular duodenitis, multiple colon polyps-especially in cecum, ascending, and transverse colon, unable to get good positioning to remove all the polyps. Cecal and ascending colon polyps removed, they were big but not worrisome for malignancy. At this point I would be concerned about high-grade dysplasia because of the length of the procedure I opted to stop at this point so as to await for pathology and then make a decision regarding further colonoscopies versus right hemicolectomy the rest of the colon appeared to be unremarkable for the most part. Pathology of small intestine duodenal mucosa with foveolar metaplasia, adenomatous polyps and tubulovillous adenomas, multiple fragments. Reports dark brown stool, no hematemesis and no rectal bleeding. CT scan abdomen and pelvis (01/22/17)----> Spontaneous hemorrhage involving the right mid pole kidney measuring 6.5 cm in size. This obscures the previously seen cortical based lesion. I am unsure if this hemorrhage relates to spontaneous hemorrhage within that lesion. A followup MRI of the kidneys with and without gadolinium is suggested following resolution of the hemorrhage to better evaluate that lesion. 2. Right basilar atelectasis. 3. Fenestrated endograft. 4 Chronic pancreatitis. 5. 1.6 bladder stone. S/P 2 units PRBC. S/P Incomplete colonoscopy (01/25/17)----> Incomplete colonoscopy, History of colon polyps. HH slowly trending down, HH 7.3/21.9. HH today 7.7/ 24. Dark stool, but no other obvious bleeding. Plan is for repeat colonoscopy on Sunday with 2 day prep, he is agreeable. - Melena. Hx of duodenal avms, nodular duodnitis in November. Nurses report small black tarry stools. - Multiple colon polyps, adenomatous and tubulovillous. Now agreeable to repeat colonoscopy with longer bowel prep. May need to consider hemicolectomy - ASUNCION with ckd. Improved. - Right kidney hemorrhage on CT scan. following. - Back pain (right sided), ? r/t right kidney Improved - Hx colon polyps, Colonoscopy as above. pathology adenomatous polyps and tubulovillous adenomas, multiple fragments. - Hx esophagitis, duodenal avms. PPI - Chronic pancreatitis. Stable. - Atrial fibrillation on coumadin. - Hyperlipidemia, CAD, S/P PCI, stent, COPD, CHF, DM PLAN: - Plan for egd/colonoscopy on Sunday with 2 day prep - Golytely prep yesterday and today - NPO after MN tonight - Monitor HH, transfuse as necessary - PPI - following - Supportive care - ? need for hemicolectomy, pending results of colonoscopy - Further recommendations to follow based on results of above Patient seen and examined by Dr. Feldman and myself and this note is written on his behalf (Kimberli Rodriguez) Physician Comments Patient seen and examined Agree with above Continue with current supportive care Monitor labs Plan for colonoscopy tomorrow (Phuc Feldman MD) Kimberli Rodriguez Jan 28, 2017 12:03 Phuc Feldman MD Jan 28, 2017 14:08
[2017-01-28] MEDS ORDERED: SODIUM CHLOR 0.9% 250 ML INJ 250 ML IV ONE (12:15)
[2017-01-28] MEDS ORDERED: PEG (High)/E-LYTE SOLN 4000 ML BTL PO ONE (14:00)
[2017-01-29] VITALS (7 sets, daily range): BP systolic 145–158; BP diastolic 69–73; PULSE 48–74; RESP 17–18; TEMP 97.1–97.8; O2SAT 96–98
[2017-01-29] MEDS: SODIUM CHLOR 0.9% 1000 ML INJ 1,000 ML IV SCH (05:06)
[2017-01-29] MEDS: INSULIN ASPART SUPPLEMENTAL SCALE SQ SCH ×4 (07:45→21:58)
[2017-01-29 08:09] LABS: BASOPHIL % 0.5 % (0.0-2.0); EOSINOPHIL # 0.2 TH/MM3 (0-0.4); EOSINOPHIL % 1.9 % (0.0-4.0); HEMATOCRIT 29.2 % (39.0-51.0); HEMO FLAGS DIFF FINAL; LYMPH % 16.5 % (9.0-44.0); LYMPHOCYTE # 1.4 TH/MM3 (1.0-4.8); MEAN CORPUSCULAR HEMOGLOBIN 28.4 PG (27.0-34.0); MEAN CORPUSCULAR HGB CONC 31.9 % (32.0-36.0); MONO % 9.2 % (0.0-8.0); NEUT % 71.9 % (16.0-70.0); PLATELET COUNT 207 TH/MM3 (150-450); RED BLOOD COUNT 3.28 MIL/MM3 (4.50-5.90); RED CELL DISTRIBUTION WIDTH 17.4 % (11.6-17.2); WHITE BLOOD COUNT 8.3 TH/MM3 (4.0-11.0)
[2017-01-29] MEDS: DOCUSATE SODIUM 50 MG/SENNA 8.6 MG TAB PO SCH ×2 (08:46→20:13)
[2017-01-29] MEDS: LOSARTAN 25 MG TAB PO SCH (08:46)
[2017-01-29] MEDS: CHOLECALCIFEROL (VIT D3) 5000 UNIT CAP PO SCH (08:46)
[2017-01-29] MEDS: PRAVASTATIN SOD 40 MG TAB PO SCH (08:47)
[2017-01-29] MEDS: FERROUS SULFATE 325 MG (65 MG ELEMENTAL IRON) TAB PO SCH (08:47)
[2017-01-29] MEDS: hydrALAZINE HCL 10 MG TAB PO SCH ×3 (08:47→17:11)
[2017-01-29] MEDS: CALCITRIOL 0.25 MCG CAP PO SCH (08:47)
[2017-01-29] MEDS: CIPROFLOXACIN 250 MG TAB PO SCH ×2 (08:47→20:12)
[2017-01-29] MEDS: CARVEDILOL 3.125 MG TAB PO SCH ×2 (08:47→20:13)
[2017-01-29] MEDS: PANTOPRAZOLE SOD 40 MG DELAYED RELEASE TAB PO SCH (08:47)
[2017-01-29] MEDS: SODIUM CHLORIDE 0.9% FLUSH 10 ML FLUSH IV FLUSH SCH ×2 (08:48→20:12)
[2017-01-29 09:25] LABS: BICARBONATE 17.1 MEQ/L (21.0-32.0); MAGNESIUM 1.6 MG/DL (1.5-2.5)
[2017-01-29] MEDS ORDERED: LACTATED RINGER'S 1000 ML INJ 1,000 ML ONE (09:34)
[2017-01-29 09:56] LABS: POTASSIUM 4.4 MEQ/L (3.5-5.1)
[2017-01-29] MEDS ORDERED: LACTATED RINGER'S 1000 ML IV PRN (10:45)
[2017-01-29] MEDS ORDERED: CHLORHEXIDINE GLUCONATE 2 % 1 PACK (2 CLOTHS) TOPICAL PRN (10:45)
[2017-01-29] MEDS ORDERED: INSULIN HUMAN REGULAR 1,000 UNITS/10 ML VIAL SQ PRN (10:45)
[2017-01-29] MEDS ORDERED: POVIDONE IODINE 5% (ANTISEPSIS KIT) 4 APPLICATIONS EACH NARE PRN (10:45)
[2017-01-29] MEDS ORDERED: METOPROLOL TARTRATE 25 MG TAB PO PRN (10:45)
[2017-01-29] MEDS ORDERED: SODIUM CHLORID 0.9% 500 ML IV PRN (10:45)
--- NOTE | 2017-01-29 11:43 | HHI.GIFU ---
Subjective Remarks Colonoscopy to cecum performed. Multiple ascending colon polyps removed with hot snare. Two large polyps removed from transverse colon and submitted separately. Spot tattoo placed in transverse colon at largest polyp. Many more small polyps remain. Prep was fair. Tortuous colon. No definite cancer seen. Objective Vitals I&O Vital Signs Date Time Temp Pulse Resp B/P (MAP) Pulse Ox O2 Delivery O2 Flow Rate FiO2 01/29/17 08:27 97 01/29/17 08:00 97.8 74 17 154/70 (98) 98 01/29/17 04:00 Room Air 01/29/17 04:00 97.2 52 18 158/73 (101) 96 01/29/17 00:00 97.1 58 18 152/69 (96) 98 01/29/17 00:00 Room Air 01/28/17 22:10 21 01/28/17 21:12 98.0 56 18 177/77 97 01/28/17 20:57 97.7 62 18 165/81 97 01/28/17 20:00 Room Air 01/28/17 17:33 97.2 60 16 180/84 98 01/28/17 17:12 97.4 55 16 172/75 97 01/28/17 16:00 97.6 51 20 175/73 (107) 97 01/28/17 15:40 16 01/28/17 12:00 97.8 63 20 159/73 (101) 96 I/O 01/28/17 01/28/17 01/28/17 01/29/17 01/29/17 01/29/17 07:00 15:00 23:00 07:00 15:00 23:00 Intake Total 1240 ml 1000 ml 1244 ml 1160 ml Output Total 800 ml 300 ml 700 ml Balance 440 ml 1000 ml 944 ml 460 ml Intake Oral 240 ml 460 ml 240 ml IV Total 1000 ml 1000 ml 25 ml 920 ml Packed Cells 400 ml Blood Product IV Normal Saline Flush 359 ml Output Urine Total 800 ml 300 ml 700 ml # Bowel Movements 1 1 1 1 Laboratory Laboratory Tests Test 01/29/17 06:53 White Blood Count 8.3 Red Blood Count 3.28 Hemoglobin 9.3 Hematocrit 29.2 Mean Corpuscular Volume 89.0 Mean Corpuscular Hemoglobin 28.4 Mean Corpuscular Hemoglobin Concent 31.9 Red Cell Distribution Width 17.4 Platelet Count 207 Mean Platelet Volume 9.7 Neutrophils (%) (Auto) 71.9 Lymphocytes (%) (Auto) 16.5 Monocytes (%) (Auto) 9.2 Eosinophils (%) (Auto) 1.9 Basophils (%) (Auto) 0.5 Neutrophils # (Auto) 6.0 Lymphocytes # (Auto) 1.4 Monocytes # (Auto) 0.8 Eosinophils # (Auto) 0.2 Basophils # (Auto) 0.0 CBC Comment DIFF FINAL Differential Comment Blood Urea Nitrogen 13 Creatinine 1.11 Random Glucose 75 Calcium Level 7.9 Magnesium Level 1.6 Sodium Level 146 Potassium Level 4.4 Chloride Level 117 Carbon Dioxide Level 17.1 Anion Gap 12 Estimat Glomerular Filtration Rate 65 Date/Time Source Procedure Growth Status 01/22/17 09:10 Urine Clean Catch Urine Culture - Final Klebsiella Pneumoniae Complete Physical Exam HEENT: Normocephalic; atraumatic; no jaundice. CHEST: Course breath sounds, resp. even/unlabored CARDIAC: RRR ABDOMEN: Soft, nondistended, nontender; no hepatosplenomegaly; bowel sounds are present in all four quadrants. EXTREMITIES: No clubbing, cyanosis, or edema. SKIN: Normal; no rash; no jaundice. UPPER STITCHER: No focal deficits; lethargic and oriented times three. Assessment and Plan Plan ASSESSMENT: - Severe anemia. S/P EGD/Colonoscopy (11/23/16)----> nodular duodenitis, multiple colon polyps-especially in cecum, ascending, and transverse colon, unable to get good positioning to remove all the polyps. Cecal and ascending colon polyps removed, they were big but not worrisome for malignancy. At this point I would be concerned about high-grade dysplasia because of the length of the procedure I opted to stop at this point so as to await for pathology and then make a decision regarding further colonoscopies versus right hemicolectomy the rest of the colon appeared to be unremarkable for the most part. Pathology of small intestine duodenal mucosa with foveolar metaplasia, adenomatous polyps and tubulovillous adenomas, multiple fragments. Reports dark brown stool, no hematemesis and no rectal bleeding. CT scan abdomen and pelvis (01/22/17)----> Spontaneous hemorrhage involving the right mid pole kidney measuring 6.5 cm in size. This obscures the previously seen cortical based lesion. I am unsure if this hemorrhage relates to spontaneous hemorrhage within that lesion. A followup MRI of the kidneys with and without gadolinium is suggested following resolution of the hemorrhage to better evaluate that lesion. 2. Right basilar atelectasis. 3. Fenestrated endograft. 4 Chronic pancreatitis. 5. 1.6 bladder stone. S/P 2 units PRBC. S/P Incomplete colonoscopy (01/25/17)----> Incomplete colonoscopy, History of colon polyps. HH slowly trending down, HH 7.3/21.9. HH today 7.7/ 24. Dark stool, but no other obvious bleeding. Plan is for repeat colonoscopy on Sunday with 2 day prep, he is agreeable. - Melena. Hx of duodenal avms, nodular duodnitis in November. Nurses report small black tarry stools. - Multiple colon polyps, adenomatous and tubulovillous. Now agreeable to repeat colonoscopy with longer bowel prep. May need to consider hemicolectomy - ASUNCION with ckd. Improved. - Right kidney hemorrhage on CT scan. following. - Back pain (right sided), ? r/t right kidney Improved - Hx colon polyps, Colonoscopy as above. pathology adenomatous polyps and tubulovillous adenomas, multiple fragments. - Hx esophagitis, duodenal avms. PPI - Chronic pancreatitis. Stable. - Atrial fibrillation on coumadin. - Hyperlipidemia, CAD, S/P PCI, stent, COPD, CHF, DM 01/29 Colonoscopy with multiple polypectomies and spot tattoo placed. Also EGD performed and no ulcers or other source of bleeding seen. Some mild duodenitis. Many small colon polyps remain in right colon, appear benign. Need to collect some polyp fragments today and submit for testing. They are from ascending colon. PLAN: - Regular diet. - collect polyps from stool passed today and submit as polyps from ascending colon. - Monitor HH, transfuse as necessary - PPI - following - Supportive care - R hemicolectomy not needed. Repeat colonoscopy in 2 months to remove rest of polyps. - Further recommendations to follow based on results of above Petros Lyons MD Jan 29, 2017 11:43
--- NOTE | 2017-01-29 12:43 | HHI.PR ---
Subjective Remarks F/U GIB. Tolerated C scope. Dw GI possible dc in am. May restart Coumadin in 5 days. Per ok to restart Coumadin Objective Vitals Vital Signs Date Time Temp Pulse Resp B/P (MAP) Pulse Ox O2 Delivery O2 Flow Rate FiO2 01/29/17 12:08 50 18 155/73 (100) 99 01/29/17 11:55 44 18 134/64 (87) 98 01/29/17 11:44 96.2 53 16 134/64 (87) 98 01/29/17 08:27 97 01/29/17 08:05 Room Air 01/29/17 08:00 97.8 74 17 154/70 (98) 98 01/29/17 04:00 Room Air 01/29/17 04:00 97.2 52 18 158/73 (101) 96 01/29/17 00:00 97.1 58 18 152/69 (96) 98 01/29/17 00:00 Room Air 01/28/17 22:10 21 01/28/17 21:12 98.0 56 18 177/77 97 01/28/17 20:57 97.7 62 18 165/81 97 01/28/17 20:00 Room Air 01/28/17 17:33 97.2 60 16 180/84 98 01/28/17 17:12 97.4 55 16 172/75 97 01/28/17 16:00 97.6 51 20 175/73 (107) 97 01/28/17 15:40 16 I/O 01/28/17 01/28/17 01/28/17 01/29/17 01/29/17 01/29/17 07:00 15:00 23:00 07:00 15:00 23:00 Intake Total 1240 ml 1000 ml 1244 ml 1160 ml 600 ml Output Total 800 ml 300 ml 700 ml Balance 440 ml 1000 ml 944 ml 460 ml 600 ml Intake Oral 240 ml 460 ml 240 ml IV Total 1000 ml 1000 ml 25 ml 920 ml Packed Cells 400 ml Blood Product IV Normal Saline Flush 359 ml Other 600 ml Output Urine Total 800 ml 300 ml 700 ml # Bowel Movements 1 1 1 1 Result Diagram: 01/29/17 0653 01/29/1753 Imaging Last Impressions Abdomen/Pelvis CT 01/22/17 0904 Signed Impressions: Service Date/Time: Sunday, January 22, 2017 09:53 - CONCLUSION: 1. Spontaneous hemorrhage involving the right mid pole kidney measuring 6.5 cm in size. This obscures the previously seen cortical based lesion. I am unsure of this hemorrhage relates to spontaneous hemorrhage within that lesion. A followup MRI of the kidneys with and without gadolinium is suggested following resolution of the hemorrhage to better evaluate that lesion. 2. Right basilar atelectasis. 3. Fenestrated endograft. 4. Chronic pancreatitis. 5. 1.6 cm bladder stone. Blaze Del Valle Jr., MD Objective Remarks GENERAL: Elderly male, lying in bed comfortably in no apparent distress. CARDIOVASCULAR: Normal rate and regular rhythm without murmurs, gallops, or rubs. S1 and S2 present. RESPIRATORY: Good respiratory efforts. Breath sounds equal and clear to auscultation bilaterally. No wheezing. GASTROINTESTINAL: Abdomen soft, non-tender, non-distended. Normal active bowel sounds. Sands in place draining yellow urine MUSCULOSKELETAL: Extremities without cyanosis, or edema. NEURO: Alert & Oriented x4 to person, place, time, situation. Moves all ext x4 PSYCH: Appropriate mood and affect. Procedures Cscope A/P Problem List: (1) Anemia ICD Code: D64.9 - Anemia, unspecified Status: Acute (2) GI bleed ICD Code: K92.2 - Gastrointestinal hemorrhage, unspecified Status: Acute (3) UTI (urinary tract infection) ICD Code: N39.0 - Urinary tract infection, site not specified Status: Acute Assessment and Plan 71-year-old male with: Right Kidney Hemorrhage CT abdomen showed spontaneous hemorrhage involving the right mid pole kidney measuring 6.5 cm in size. Urology following recommends continuing medical management with serial H&H and abdominal exam. Pain management as needed. Patient appeared to be clinically stable at this point. Bladder Stone CT abdomen showed bladder stone measuring 1.61cm Urology following, recommends follow up in the outpatient setting and dc with Sands in place. GI Bleed- etiology unknown at this time last colonoscopy performed 11/2016 showed multiple colonic polyps Status post 2 units of PRBC on 01/22/17 Pt is anticoagulated on warfarin for afib. INR was 3.7 on presentation, Coumadin reversed. Current INR 2.2. No obvious bleeding. Colonoscopy attempted but prep inadequate. GI planned for repeat colonoscopy but patient refused. Now agreeable to attempt Golytely prep and GI plan for colonoscopy for the 3rd time with ff results: multiple polypectomies and spot tattoo placed. Also EGD performed and no ulcers or other source of bleeding seen. Some mild duodenitis. Many small colon polyps remain in right colon, appear benign. Need to collect some polyp fragments today and submit for testing. They are from ascending colon. Continue to monitor labs Anemia-due to acute blood loss. Improved S/P 3 units of PRBC on iron supplementation before admission, continue GI following, appreciate input. monitor labs Chronic Kidney Disease stage 3 BUN and Cr levels appears at baseline at this time on IVF, continue monitor renal function Hypertension on carvedilol, hydralazine, losartan hold BP meds if SBP<110 BP stable at this time, monitor trends. Hyperlipidemia on pravastatin Diabetes Mellitus with neuropathy and retinopathy SSI daily accuchecks Currently well-controlled. Tobacco Use Patient counseled on cessation. Severe protein calorie malnutrition albumin 1.9 total protein 6.1 muscle atrophy, bitemporal wasting, UE & LE wasting Continue ensure. Business Development Assistant has seen patient, with recommendations of adding Glucerna shakes when diet advanced. Following. Urinary tract infection with Klebsiella. Continue Cipro for 14 days with chronic sands s/p exchange A. fib with controlled ventricular response. Restart Coumadin when cleared by GI Physical deconditioning. Consult PT DVT prophylaxis- chemical prophylaxis contraindicated at this time secondary to active bleeding SCD/TEDs Discharge Planning Dc to home frankn am Problem Qualifiers (1) GI bleed: Qualified Codes: K92.2 - Gastrointestinal hemorrhage, unspecified Asad Franklin MD Jan 29, 2017 12:42
[2017-01-29] MEDS: MORPHINE SULFATE 2 MG/ML INJ IV PUSH PRN (22:16)
[2017-01-30] VITALS: BP 144/67; PULSE 59; RESP 16; TEMP 97.9; O2SAT 96
[2017-01-30 04:00] VITALS: BP 139/62; PULSE 54; RESP 16; TEMP 97.9; O2SAT 97
[2017-01-30 07:27] LABS: AUTOMATED NEUTROPHIL # 6.2 TH/MM3 (1.8-7.7); BASOPHIL # 0.1 TH/MM3 (0-0.2); BASOPHIL % 0.6 % (0.0-2.0); EOSINOPHIL # 0.1 TH/MM3 (0-0.4); EOSINOPHIL % 1.7 % (0.0-4.0); HEMATOCRIT 25.1 % (39.0-51.0); HEMO FLAGS DIFF FINAL; LYMPH % 16.9 % (9.0-44.0); LYMPHOCYTE # 1.5 TH/MM3 (1.0-4.8); MEAN CELL VOLUME 88.1 FL (80.0-100.0); MEAN CORPUSCULAR HEMOGLOBIN 29.5 PG (27.0-34.0); MEAN CORPUSCULAR HGB CONC 33.5 % (32.0-36.0); MONO % 9.6 % (0.0-8.0); NEUT % 71.2 % (16.0-70.0); PLATELET COUNT 183 TH/MM3 (150-450); RED BLOOD COUNT 2.84 MIL/MM3 (4.50-5.90); RED CELL DISTRIBUTION WIDTH 16.8 % (11.6-17.2); WHITE BLOOD COUNT 8.7 TH/MM3 (4.0-11.0)
[2017-01-30 07:46] LABS: MAGNESIUM 1.6 MG/DL (1.5-2.5); POTASSIUM 4.2 MEQ/L (3.5-5.1)
[2017-01-30 07:58] LABS: CALCIUM-PROTEIN CORRECTED 8.7 MG/DL (8.5-10.1)
[2017-01-30 08:00] VITALS: BP 141/67; PULSE 55; RESP 18; TEMP 97.4; O2SAT 96
[2017-01-30] MEDS: INSULIN ASPART SUPPLEMENTAL SCALE SQ SCH ×2 (08:00→12:00)
[2017-01-30] MEDS: DOCUSATE SODIUM 50 MG/SENNA 8.6 MG TAB PO SCH (09:00)
[2017-01-30] MEDS: hydrALAZINE HCL 10 MG TAB PO SCH ×2 (09:20→13:00)
[2017-01-30] MEDS: LOSARTAN 25 MG TAB PO SCH (09:20)
[2017-01-30] MEDS: CARVEDILOL 3.125 MG TAB PO SCH (09:20)
[2017-01-30] MEDS: CIPROFLOXACIN 250 MG TAB PO SCH (09:20)
[2017-01-30] MEDS: CALCITRIOL 0.25 MCG CAP PO SCH (09:20)
[2017-01-30] MEDS: CHOLECALCIFEROL (VIT D3) 5000 UNIT CAP PO SCH (09:20)
[2017-01-30] MEDS: PANTOPRAZOLE SOD 40 MG DELAYED RELEASE TAB PO SCH (09:20)
[2017-01-30] MEDS: FERROUS SULFATE 325 MG (65 MG ELEMENTAL IRON) TAB PO SCH (09:21)
[2017-01-30] MEDS: PRAVASTATIN SOD 40 MG TAB PO SCH (09:21)
[2017-01-30] MEDS: SODIUM CHLORIDE 0.9% FLUSH 10 ML FLUSH IV FLUSH SCH (09:22)
[2017-01-30] MEDS ORDERED: CIPR250T52 PO (11:48)
[2017-01-30] MEDS ORDERED: PANT40TA3 PO (11:48)
--- NOTE | 2017-01-30 11:52 | HHI.DS ---
Discharge Summary Admission Date Jan 22, 2017 at 10:35 Discharge Date: Jan 30, 2017 Admitting Diagnosis GI bleed, constipation, abdominal pain (1) Anemia ICD Code: D64.9 - Anemia, unspecified Diagnosis: Principal Status: Acute (2) GI bleed ICD Code: K92.2 - Gastrointestinal hemorrhage, unspecified Diagnosis: Principal Status: Acute (3) UTI (urinary tract infection) ICD Code: N39.0 - Urinary tract infection, site not specified Diagnosis: Principal Status: Acute Procedures Cscope Brief History - From Admission Pleasant 71yo M with PMH of atrial fibrillation on warfarin, AAA with repair, anxiety, DM2 with neuropathy and retinopathy, hypercholesterolemia, tobacco use , and COPD who presented in the ER today due to lower back pain that's been present for the past 2 weeks. Pt reports feeling tired and ill with decreased appetite around 3-4weeks ago. Several weeks ago he noticed constipation, pain on defecation, and "very dark brown/maroon stools". He has been using an OTC enema for the constipation and reports having 2 BM/ week. About 2wks ago he began to experience right sided pain that radiated to the left side about 2-3d ago. He rates the pain at a 7 and at a 9 at its maximum and describes it as burning, dull, and constant "like a toothache". He believes that lying down alleviates the pain and that moving in certain positions aggravate the pain. He denies any history of back injuries, recent accidents, fall, or trauma to the affected area. Pt reports that about 3mo ago he went to a doctor and had an upper and lower endoscopy performed. He also mentioned that he received 2units of blood at that time, but does not recall why. Of note, pt reports that about 3 -4yrs ago when he went to [facility] to receive his abdominal aortic stent, "The [facility] doctor told me I had left kidney cancer, but the [place] next door told me they were cysts". He denies following up afterwards. Reports weight loss, decreased appetite, nausea, cough, abdominal pain he attributes to gas, constipation, pain on defecation, low back pain, and neuropathic leg pain from his diabetes. Denies AMBROCIO, CP seizures, recent changes in vision, SOB, vomiting, fever, chills, leg swelling, urinary and bowel incontinence, dysuria, bruising or redness in the affected area. CBC/BMP: 01/30/1728 01/30/17627 Significant Findings Laboratory Tests Test 01/28/17 07:25 01/29/17 06:53 01/30/17 06:28 Red Blood Count 2.70 MIL/MM3 (4.50-5.90) 3.28 MIL/MM3 (4.50-5.90) 2.84 MIL/MM3 (4.50-5.90) Hemoglobin 7.7 GM/DL (13.0-17.0) 9.3 GM/DL (13.0-17.0) 8.4 GM/DL (13.0-17.0) Hematocrit 24.0 % (39.0-51.0) 29.2 % (39.0-51.0) 25.1 % (39.0-51.0) Red Cell Distribution Width 17.5 % (11.6-17.2) 17.4 % (11.6-17.2) Neutrophils (%) (Auto) 70.9 % (16.0-70.0) 71.9 % (16.0-70.0) 71.2 % (16.0-70.0) Monocytes (%) (Auto) 9.2 % (0.0-8.0) 9.2 % (0.0-8.0) 9.6 % (0.0-8.0) Mean Corpuscular Hemoglobin Concent 31.9 % (32.0-36.0) Calcium Level 7.9 MG/DL (8.5-10.1) 7.4 MG/DL (8.5-10.1) Sodium Level 146 MEQ/L (136-145) Chloride Level 117 MEQ/L (98-107) 117 MEQ/L (98-107) Carbon Dioxide Level 17.1 MEQ/L (21.0-32.0) 18.0 MEQ/L (21.0-32.0) Estimat Glomerular Filtration Rate 65 ML/MIN (>89) 49 ML/MIN (>89) Creatinine 1.41 MG/DL (0.60-1.30) Random Glucose 126 MG/DL (74-106) Total Protein 4.8 GM/DL (6.4-8.2) Imaging Last Impressions Abdomen/Pelvis CT 01/22/17 0904 Signed Impressions: Service Date/Time: Sunday, January 22, 2017 09:53 - CONCLUSION: 1. Spontaneous hemorrhage involving the right mid pole kidney measuring 6.5 cm in size. This obscures the previously seen cortical based lesion. I am unsure of this hemorrhage relates to spontaneous hemorrhage within that lesion. A followup MRI of the kidneys with and without gadolinium is suggested following resolution of the hemorrhage to better evaluate that lesion. 2. Right basilar atelectasis. 3. Fenestrated endograft. 4. Chronic pancreatitis. 5. 1.6 cm bladder stone. Blaze Del Valle Jr., MD PE at Discharge GENERAL: Elderly male, lying in bed comfortably in no apparent distress. CARDIOVASCULAR: Normal rate and regular rhythm without murmurs, gallops, or rubs. S1 and S2 present. RESPIRATORY: Good respiratory efforts. Breath sounds equal and clear to auscultation bilaterally. No wheezing. GASTROINTESTINAL: Abdomen soft, non-tender, non-distended. Normal active bowel sounds. Sands in place draining yellow urine MUSCULOSKELETAL: Extremities without cyanosis, or edema. NEURO: Alert & Oriented x4 to person, place, time, situation. Moves all ext x4 PSYCH: Appropriate mood and affect. Hospital Course 71-year-old male with: Right Kidney Hemorrhage CT abdomen showed spontaneous hemorrhage involving the right mid pole kidney measuring 6.5 cm in size. Urology following recommends continuing medical management with serial H&H and abdominal exam. Pain management as needed. Patient appeared to be clinically stable at this point. Bladder Stone CT abdomen showed bladder stone measuring 1.61cm Urology following, recommends follow up in the outpatient setting and dc with Sands in place. GI Bleed- etiology unknown at this time last colonoscopy performed 11/2016 showed multiple colonic polyps Status post 2 units of PRBC on 01/22/17 Pt is anticoagulated on warfarin for afib. INR was 3.7 on presentation, Coumadin reversed. Current INR 2.2. No obvious bleeding. Colonoscopy attempted but prep inadequate. GI planned for repeat colonoscopy but patient refused. Now agreeable to attempt Golytely prep and GI plan for colonoscopy for the 3rd time with ff results: multiple polypectomies and spot tattoo placed. Also EGD performed and no ulcers or other source of bleeding seen. Some mild duodenitis. Many small colon polyps remain in right colon, appear benign. Need to collect some polyp fragments and submit for testing. They are from ascending colon. Follow up pathology Continue to monitor labs Anemia-due to acute blood loss. Improved S/P 3 units of PRBC on iron supplementation before admission, continue GI following, appreciate input. monitor labs Chronic Kidney Disease stage 3 BUN and Cr levels appears at baseline at this time Status post IVF monitor renal function Hypertension on carvedilol, hydralazine, losartan hold BP meds if SBP<110 BP stable at this time, monitor trends. Hyperlipidemia on pravastatin Diabetes Mellitus with neuropathy and retinopathy SSI daily accuchecks Currently well-controlled. Tobacco Use Patient counseled on cessation. Severe protein calorie malnutrition albumin 1.9 total protein 6.1 muscle atrophy, bitemporal wasting, UE & LE wasting Continue ensure. Engraver Automatic has seen patient, with recommendations of adding Glucerna shakes when diet advanced. Following. Urinary tract infection with Klebsiella. Continue Cipro for 14 days with chronic sands s/p exchange A. fib with controlled ventricular response. Restart Coumadin 02/02 per GI pending repeat CBC, needs to be reevaluated by PCp Physical deconditioning. Consult PT DVT prophylaxis- chemical prophylaxis contraindicated at this time secondary to active bleeding SCD/TEDs Pt Condition on Discharge: Stable Discharge Disposition: Disch w/ Home Health Serv Discharge Time: > 30 minutes Discharge Instructions DIET: Follow Instructions for: As Tolerated, No Restrictions Activities you can perform: Regular-No Restrictions Activities to Avoid: Driving Follow up Referrals: Gastroenterology - 1 Week PCP Follow-up - 02/02/17 New Orders: BASIC METABOLIC PROF - 02/02/17 CBC NO DIFF - 02/02/17 New Medications: Ciprofloxacin (Cipro) 250 Mg Tab 250 MG PO Q12HR for Infection, #8 TAB Pantoprazole (Pantoprazole) 40 Mg Tab 40 MG PO DAILY for Manage Heartburn, #30 TAB Continued Medications: Calcitriol (Rocaltrol) 0.25 Mcg Cap 0.5 MCG PO DAILY, #30 CAP Calcium/Vitamin D (Oyster Shell 250 mg + Vit D Tb) 250 Mg Calcium (625 Mg)-125 Unit Tablet 500 MG PO Q12HR, #60 TAB Carvedilol (Coreg) 3.125 Mg Tab 3.125 MG PO BID, #60 TAB 3 Refills Cholecalciferol (Vitamin D3) 5,000 Unit Cap 5000 UNITS PO DAILY, #30 CAP Ferrous Sulfate (Ferosul) 325 Mg Tablet 325 MG PO DAILY, #30 TAB Hydralazine HCl (Hydralazine HCl) 25 Mg Tablet 10 MG PO TID for Blood Pressure Management, #90 TAB 0 Refills Losartan (Losartan) 25 Mg Tab 25 MG PO DAILY for Blood Pressure Management, #30 TAB 0 Refills Pravastatin (Pravastatin) 40 Mg Tab 40 MG PO DAILY, #30 TAB 0 Refills Warfarin (Warfarin) 2.5 Mg Tab 2.5 MG PO DAILY, #30 TAB 0 Refills start if repeat labs 02/02 stable and ok by PCP Warfarin (Warfarin) 5 Mg Tab 5 MG PO sun for Blood Clot Prevention, #30 TAB 0 Refills start if repeat labs 02/02 stable and ok by PCP Discontinued Medications: Furosemide (Furosemide) 40 Mg Tab 40 MG PO DAILY, #30 TAB 0 Refills Magnesium Hydroxide (Eq Milk of Magnesia) 1,200 Mg/15 Ml Gena 30 ML PO Q12H PRN for MILD - MODERATE CONSTIPATION, #60 Metformin (Metformin) 1,000 Mg Tab 1000 MG PO BIDPC for Blood Sugar Management, #60 TAB 0 Refills Asad Franklin MD Jan 30, 2017 11:52
== END 2017-01-30 14:18 | disposition home health service (06) | DRG 377 ==
LOC: NEPC 08:15 → NEDA 10:35 → N04B 12:30
PROVIDERS: ADMIT Internal Medicine; ATTEND Internal Medicine
PROC: 30233N1 Transfusion of Nonautologous Red Blood Cells into Peripheral Vein, Percutaneous Approach (ICD-10-PCS; principal; 2017-01-22)
PROC: 30233K1 Transfusion of Nonautologous Frozen Plasma into Peripheral Vein, Percutaneous Approach (ICD-10-PCS; 2017-01-25)
PROC: 0DJD8ZZ Inspection of Lower Intestinal Tract, Via Natural or Artificial Opening Endoscopic (ICD-10-PCS; 2017-01-25)
PROC: 0DB98ZX Excision of Duodenum, Via Natural or Artificial Opening Endoscopic, Diagnostic (ICD-10-PCS; 2017-01-29)
PROC: 0DBK8ZX Excision of Ascending Colon, Via Natural or Artificial Opening Endoscopic, Diagnostic (ICD-10-PCS; 2017-01-29)
PROC: 0DBL8ZX Excision of Transverse Colon, Via Natural or Artificial Opening Endoscopic, Diagnostic (ICD-10-PCS; 2017-01-29)
DX: K92.2 Gastrointestinal hemorrhage, unspecified (principal); E43 Unspecified severe protein-calorie malnutrition; N17.9 Acute kidney failure, unspecified; I48.91 Unspecified atrial fibrillation; E11.22 Type 2 diabetes mellitus with diabetic chronic kidney disease; E11.40 Type 2 diabetes mellitus with diabetic neuropathy, unspecified; I13.0 Hypertensive heart and chronic kidney disease with heart failure and stage 1 through stage 4 chronic kidney disease, or unspecified chronic kidney disease; I50.9 Heart failure, unspecified; K86.1 Other chronic pancreatitis; D62 Acute posthemorrhagic anemia; N39.0 Urinary tract infection, site not specified; N28.89 Other specified disorders of kidney and ureter; J44.9 Chronic obstructive pulmonary disease, unspecified; K59.00 Constipation, unspecified; F41.9 Anxiety disorder, unspecified; E11.319 Type 2 diabetes mellitus with unspecified diabetic retinopathy without macular edema; E78.00 Pure hypercholesterolemia, unspecified; I25.10 Atherosclerotic heart disease of native coronary artery without angina pectoris; N18.3 Chronic kidney disease, stage 3 (moderate); F17.210 Nicotine dependence, cigarettes, uncomplicated; N21.0 Calculus in bladder; G89.29 Other chronic pain; M54.5 Low back pain; B96.1 Klebsiella pneumoniae [K. pneumoniae] as the cause of diseases classified elsewhere; D12.3 Benign neoplasm of transverse colon; G47.30 Sleep apnea, unspecified; R79.1 Abnormal coagulation profile; K21.9 Gastro-esophageal reflux disease without esophagitis; K29.80 Duodenitis without bleeding; Z86.010 Personal history of colon polyps; Z86.79 Personal history of other diseases of the circulatory system; Z87.442 Personal history of urinary calculi; Z79.01 Long term (current) use of anticoagulants; Z79.84 Long term (current) use of oral hypoglycemic drugs; Z95.5 Presence of coronary angioplasty implant and graft; I25.2 Old myocardial infarction
CPT/HCPCS: 36430; 74176; 80048; 80053; 81001; 82330; 82948; 83690; 83735; 84100; 84155; 85025; 85027; 85384; 85610; 86850; 86900; 86901; 86920; 86927; 87077; 87086; 87186; 88305; 88312; 93005; 96360; C9132; J1815; J2270; J7030; J7050; J7120; P9016; P9017

== ENCOUNTER 2017-02-28 08:47 | Inpatient (IN) | payer OTHER, MEDICARE ==
[2017-02-28] VITALS (13 sets, daily range): BP systolic 121–151; BP diastolic 58–75; PULSE 53–80; RESP 14–20; TEMP 97.3–98.7; O2SAT 96–100
[~2017-02-28] VITALS: Ht 180.3 cm; Wt 80.9 kg
[~2017-02-28 08:47] MED LIST changes: +CIPR250T52 PO; -FURO40TA PO; -MAGN400S PO; +PANT40TA3 PO
--- NOTE | 2017-02-28 09:04 | PD ---
HPI Chief Complaint: Abnormal Results Time Seen by Provider: 09:01 Travel History International Travel<30 days: No Contact w/Intl Traveler<30days: No Traveled to known affect area: No History of Present Illness HPI 71-year-old male with history of PE, currently on Coumadin, aortic stent secondary to AAA, recent admission for GI bleed, [facility], they had done a recheck of his hemoglobin and it was low and they thought they he may need transfusions. He denies any diarrhea, black stools, or any other issues. He states that he has not been feeling too bad. He denies any chest pains, trouble breathing, or other issues. Modifying Factors: None Associated Signs & Symptoms: Low hemoglobin Risk Factors: Recent GI bleed PFSH Past Medical History Hx Anticoagulant Therapy: Yes AAA: Yes (REPAIRED) Arthritis: No Asthma: No Atrial Fibrillation: Yes Autoimmune Disease: No Blood Disorders: No Anxiety: Yes Heart Rhythm Problems: Yes (HX OF A-FIB) Cancer: No Cardiac Catheterization: Yes (2 CARDIAC STENTS, 2 AORTA) Cardiovascular Problems: Yes High Cholesterol: Yes Chemotherapy: No Chest Pain: Yes Congestive Heart Failure: Yes COPD: Yes Cerebrovascular Accident: No Coronary Artery Disease: Yes Diabetes: Yes Diminished Hearing: No Endocrine: Yes Gastrointestinal Disorders: Yes (BLADDER STONES) GERD: No Genitourinary: Yes Hiatal Hernia: Yes Hypertension: Yes Immune Disorder: No Implanted Vascular Access Dvce: Yes Insomnia: No Kidney Stones: Yes Musculoskeletal: Yes (CHRONIC BACK PAIN) Neurologic: Yes Psychiatric: Yes Reproductive: No Respiratory: Yes (copd) Immunizations Current: Yes Migraines: No Myocardial Infarction: Yes Pancreatitis: Yes Radiation Therapy: No Renal Failure: Yes Seizures: No Sleep Apnea: Yes Thyroid Disease: No Ulcer: No Past Surgical History Abdominal Aneurysm Repair: Yes Abdominal Surgery: Yes (UMBILICAL HERNIA REPAIR) Body Medical Devices: STENTS Cardiac Surgery: Yes (STENTS in upper and lower aorta, stent in heart) Coronary Stent: Yes (X2) Ear Surgery: No Endocrine Surgery: No Eye Surgery: No Genitourinary Surgery: Yes (mesh bilateral inguinal) Gynecologic Surgery: No Neurologic Surgery: No Oral Surgery: Yes (CYST REMOVED FROM THROAT) Thoracic Surgery: Yes (AAA REPAIR) Tonsillectomy: Yes Other Surgery: Yes Social History Alcohol Use: No Tobacco Use: Yes Substance Use: No Allergies-Medications (Allergen,Severity, Reaction): Coded Allergies: No Known Allergies (Verified , 01/22/17) Reported Meds & Prescriptions Reported Meds & Active Scripts Active Pantoprazole (Pantoprazole Sodium) 40 Mg Tab 40 Mg PO DAILY Cipro (Ciprofloxacin HCl) 250 Mg Tab 250 Mg PO Q12HR Ferosul (Ferrous Sulfate) 325 Mg Tablet 325 Mg PO DAILY Vitamin D3 (Cholecalciferol) 5,000 Unit Cap 5,000 Units PO DAILY Oyster Shell 250 mg + Vit D Tb (Calcium/Vitamin D) 250 Mg Calcium (625 Mg)-125 Unit Tablet 500 Mg PO Q12HR Rocaltrol (Calcitriol) 0.25 Mcg Cap 0.5 Mcg PO DAILY Coreg (Carvedilol) 3.125 Mg Tab 3.125 Mg PO BID Reported Losartan (Losartan Potassium) 25 Mg Tab 25 Mg PO DAILY Hydralazine HCl 25 Mg Tablet 10 Mg PO TID Warfarin 5 Mg Tab 5 Mg PO Sun start if repeat labs 02/02 stable and ok by PCP Warfarin 2.5 Mg Tab 2.5 Mg PO DAILY start if repeat labs 02/02 stable and ok by PCP Pravastatin 40 Mg Tab 40 Mg PO DAILY Review of Systems Except as stated in HPI: all other systems reviewed are Neg Physical Exam Narrative GENERAL: Well-developed elderly white male patient currently in mild distress. Awake and oriented 3. SKIN: Focused skin assessment warm/dry. HEAD: Atraumatic. Normocephalic. EYES: Pupils equal and round. No scleral icterus. No injection or drainage. ENT: No nasal bleeding or discharge. Mucous membranes pink and moist. NECK: Trachea midline. No JVD. CARDIOVASCULAR: Regular rate and rhythm. No murmur appreciated. RESPIRATORY: No accessory muscle use. Clear to auscultation. Breath sounds equal bilaterally. GASTROINTESTINAL: Abdomen soft, non-tender, nondistended. Hepatic and splenic margins not palpable. RECTAL EXAM: No masses or tenderness, stool is brown. Hemoccult positive. MUSCULOSKELETAL: No obvious deformities. No clubbing. No cyanosis. No edema. NEUROLOGICAL: Awake and alert. No obvious cranial nerve deficits. Motor grossly within normal limits. Normal speech. PSYCHIATRIC: Appropriate mood and affect; insight and judgment normal. Data Data Last Documented VS Vital Signs Date Time Temp Pulse Resp B/P (MAP) Pulse Ox O2 Delivery O2 Flow Rate FiO2 02/28/17 08:48 97.8 61 16 123/67 (85) 100 Room Air Orders Orders Complete Blood Count With Diff (02/28/17 08:55) Basic Metabolic Panel (Bmp) (02/28/17 08:55) Prothrombin Time / Inr (Pt) (02/28/17 08:55) Act Partial Throm Time (Ptt) (02/28/17 08:55) Type And Screen (02/28/17 08:55) Pantoprazole Inj (Protonix Inj) (02/28/17 09:15) Phytonadione Inj (Vitamin K Inj) (02/28/17 09:45) Red Blood Cells (Rbc) (02/28/17 09:47) Blood Product Administration (02/28/17 09:47) Sodium Chlor 0.9% 250 Ml Inj (Ns 250 Ml (02/28/17 10:00) Labs Laboratory Tests Test 02/28/17 09:05 White Blood Count 9.7 TH/MM3 Red Blood Count 2.66 MIL/MM3 Hemoglobin 7.7 GM/DL Hematocrit 23.8 % Mean Corpuscular Volume 89.4 FL Mean Corpuscular Hemoglobin 28.8 PG Mean Corpuscular Hemoglobin Concent 32.3 % Red Cell Distribution Width 18.3 % Platelet Count 212 TH/MM3 Mean Platelet Volume 9.8 FL Neutrophils (%) (Auto) 70.7 % Lymphocytes (%) (Auto) 12.5 % Monocytes (%) (Auto) 12.7 % Eosinophils (%) (Auto) 3.5 % Basophils (%) (Auto) 0.6 % Neutrophils # (Auto) 6.9 TH/MM3 Lymphocytes # (Auto) 1.2 TH/MM3 Monocytes # (Auto) 1.2 TH/MM3 Eosinophils # (Auto) 0.3 TH/MM3 Basophils # (Auto) 0.1 TH/MM3 CBC Comment DIFF FINAL Differential Comment Prothrombin Time 18.7 SEC Prothromb Time International Ratio 1.7 RATIO Activated Partial Thromboplast Time 36.0 SEC Blood Urea Nitrogen 39 MG/DL Creatinine 1.45 MG/DL Random Glucose 123 MG/DL Calcium Level 7.6 MG/DL Sodium Level 141 MEQ/L Potassium Level 4.3 MEQ/L Chloride Level 115 MEQ/L Carbon Dioxide Level 16.0 MEQ/L Anion Gap 10 MEQ/L Estimat Glomerular Filtration Rate 48 ML/MIN MDM Medical Decision Making Medical Screen Exam Complete: Yes Emergency Medical Condition: Yes Medical Record Reviewed: Yes Interpretation(s) Laboratory Tests Test 02/28/17 09:05 Red Blood Count 2.66 MIL/MM3 (4.50-5.90) Hemoglobin 7.7 GM/DL (13.0-17.0) Hematocrit 23.8 % (39.0-51.0) Red Cell Distribution Width 18.3 % (11.6-17.2) Neutrophils (%) (Auto) 70.7 % (16.0-70.0) Monocytes (%) (Auto) 12.7 % (0.0-8.0) Monocytes # (Auto) 1.2 TH/MM3 (0-0.9) Prothrombin Time 18.7 SEC (9.8-11.6) Activated Partial Thromboplast Time 36.0 SEC (24.3-30.1) Blood Urea Nitrogen 39 MG/DL (7-18) Creatinine 1.45 MG/DL (0.60-1.30) Random Glucose 123 MG/DL (74-106) Calcium Level 7.6 MG/DL (8.5-10.1) Chloride Level 115 MEQ/L (98-107) Carbon Dioxide Level 16.0 MEQ/L (21.0-32.0) Estimat Glomerular Filtration Rate 48 ML/MIN (>89) Differential Diagnosis Anemia: GI bleed versus other areas of bleeding versus coagulopathy versus bone marrow failure Narrative Course Hemoglobin is low at 7. The has sent him in to be transfused. He does have Hemoccult positive stools and his INR is elevated. Vitamin K was given due to the fact that he takes insulin and is having GI bleed. 2 units of blood has been ordered for the patient. He was given Protonix in the ER. At this point, my plan would be to admit the patient for further treatment. Case was discussed with Dr. Dawn for admission. [facility] Point of Care Internal Pos. & Neg. Controls: Passed Fecal Specimen Occult Blood: Positive Diagnosis Primary Impression: Anemia Additional Impression: GI bleed Admitting Information Admitting Physician Requests: Admit Nubia Cotton MD Feb 28, 2017 09:04
[2017-02-28] MEDS ORDERED: PANTOPRAZOLE SODIUM 40 MG VIAL IV PUSH ONE (09:15)
[2017-02-28 09:32] LABS: AUTOMATED NEUTROPHIL # 6.9 TH/MM3 (1.8-7.7); BASOPHIL # 0.1 TH/MM3 (0-0.2); BASOPHIL % 0.6 % (0.0-2.0); EOSINOPHIL # 0.3 TH/MM3 (0-0.4); EOSINOPHIL % 3.5 % (0.0-4.0); HEMATOCRIT 23.8 % (39.0-51.0); HEMO FLAGS DIFF FINAL; LYMPH % 12.5 % (9.0-44.0); LYMPHOCYTE # 1.2 TH/MM3 (1.0-4.8); MEAN CELL VOLUME 89.4 FL (80.0-100.0); MEAN CORPUSCULAR HEMOGLOBIN 28.8 PG (27.0-34.0); MEAN CORPUSCULAR HGB CONC 32.3 % (32.0-36.0); MONO % 12.7 % (0.0-8.0); NEUT % 70.7 % (16.0-70.0); PLATELET COUNT 212 TH/MM3 (150-450); RED BLOOD COUNT 2.66 MIL/MM3 (4.50-5.90); RED CELL DISTRIBUTION WIDTH 18.3 % (11.6-17.2); WHITE BLOOD COUNT 9.7 TH/MM3 (4.0-11.0)
[2017-02-28 09:37] LABS: INTERNATIONAL NORMALIZED RATIO 1.7 RATIO; PROTHROMBIN TIME - PATIENT 18.7 SEC (9.8-11.6)
[2017-02-28] MEDS ORDERED: PHYTONADIONE 10 MG/ML VIAL SQ ONE (09:45)
[2017-02-28 09:53] LABS: POTASSIUM 4.3 MEQ/L (3.5-5.1)
[2017-02-28] MEDS ORDERED: ACETAMINOPHEN 325 MG TAB PO PRN (10:00)
[2017-02-28] MEDS ORDERED: SODIUM CHLOR 0.9% 250 ML INJ 250 ML IV ONE (10:00)
[2017-02-28] MEDS ORDERED: LACTULOSE SYRUP 20 GM/30 ML CUP PO PRN (10:00)
[2017-02-28] MEDS ORDERED: SENNOSIDES 8.6 MG TAB PO PRN (10:00)
[2017-02-28] MEDS ORDERED: NALOXONE HCL 0.4 MG/ML AMP IV PUSH PRN (10:00)
[2017-02-28] MEDS ORDERED: ONDANSETRON HCL 4 MG/2 ML VIAL IVP PRN (10:00)
[2017-02-28] MEDS ORDERED: MAGNESIUM HYDROXIDE SUSP 30 ML CUP PO PRN (10:00)
[2017-02-28] MEDS ORDERED: BISACODYL 10 MG SUPP RECTAL PRN (10:00)
--- NOTE | 2017-02-28 11:48 | HHI.HP ---
[facility] Admission Diagnosis GI bleed/severe anemia Diagnoses: Chief Complaint: Abnormal lab Travel History International Travel<30 Days: No Contact w/Intl Traveler <30 Da: No Traveled to Known Affected Are: No History of Present Illness This is a 71-year-old male with past medical history of atrial fibrillation on chronic anticoagulation, AAA, anxiety, CAD, CHF, COPD, CKD, DM with neuropathy and retinopathy, kidney stones (rt side), multiple colonic polyps- adenomatous/ tubulovillous colon polyps, duodenal AVMs, chronic pancreatitis, gastritis/ duodenitis, chronic diarrhea, iron deficiency anemia on iron supplement who was sent to the hospital due to abnormal hemoglobin. Patient was told to come to the hospital by his PCP for transfusion. Patient was admitted to the hospital about one month ago secondary to GI bleed in which he had an extensive workup. During that hospitalization she was also have a repeat colonoscopy due to poor prep but patient refused this. I addressed this with the patient he stated he never refused any procedure. Patient stated that he wants everything done to help him. Patient had no complaints. He denies any GI bleed. He stated that he felt fine after his discharge but was told by his primary care physician to go to the emergency department. Patient had a Hemoccult stool done by the ER physician which was positive. During my examination I noticed patient has chest congestion and he stated that he started to have a cold about 5 days ago. Denies any fevers. No other complaints in regards to this. All other review system reviewed and negative. Past Family Social History Past Medical History Atrial fibrillation, AAA, anxiety, CAD, hypercholesterolemia, CHF, COPD, CKD, DM with neuropathy and retinopathy, kidney stones (rt side), pancreatitis, renal failure, sleep apnea, multiple colonic polyps- adenomatous/tubulovillous colon polyps, duodenal AVMs, chronic pancreatitis, gastritis/duodenitis, chronic diarrhea, iron deficiency anemia on iron supplement. Past Surgical History AAA Repair, Colonoscopy, EGD, cardiac cath with stents x2, umbilical hernia repair with mesh, cyst removal from throat, tonsillectomy Reported Medications Reported Meds & Active Scripts Active Pantoprazole (Pantoprazole Sodium) 40 Mg Tab 40 Mg PO DAILY Ferosul (Ferrous Sulfate) 325 Mg Tablet 325 Mg PO DAILY Vitamin D3 (Cholecalciferol) 5,000 Unit Cap 5,000 Units PO DAILY Oyster Shell 250 mg + Vit D Tb (Calcium/Vitamin D) 250 Mg Calcium (625 Mg)-125 Unit Tablet 500 Mg PO Q12HR Rocaltrol (Calcitriol) 0.25 Mcg Cap 0.5 Mcg PO DAILY Coreg (Carvedilol) 3.125 Mg Tab 3.125 Mg PO BID Reported Losartan (Losartan Potassium) 25 Mg Tab 25 Mg PO DAILY Hydralazine HCl 25 Mg Tablet 10 Mg PO TID Warfarin 5 Mg Tab 5 Mg PO Sun start if repeat labs 02/02 stable and ok by PCP Warfarin 2.5 Mg Tab 2.5 Mg PO DAILY start if repeat labs 02/02 stable and ok by PCP Pravastatin 40 Mg Tab 40 Mg PO DAILY Allergies: Coded Allergies: No Known Allergies (Verified Adverse Reaction, Unknown, 02/28/17) Active Ordered Medications Current Medications Pantoprazole Sodium (Protonix Inj) 40 mg ONCE ONCE IV PUSH Last administered on 02/28/17 09:26; Start 02/28/17 at 09:15; Stop 02/28/17 at 09:16; Status DC Phytonadione (Vitamin K Inj) 5 mg ONCE ONCE SQ Last administered on 10:13; Start 02/28/17 at 09:45; Stop 02/28/17 at 09:46; Status DC Sodium Chloride 250 ml @ 15 mls/hr ONCE ONCE IV Last administered on 11:35; Start 02/28/17 at 10:00; Stop 03/01/17 at 02:39 Sodium Chloride (NS Flush) 2 ml UNSCH PRN IV FLUSH FLUSH AFTER USING IV ACCESS ; Start 02/28/17 at 10:00 Sodium Chloride (NS Flush) 2 ml BID IV FLUSH ; Start 02/28/17 at 21:00 Acetaminophen (Tylenol) 650 mg Q4H PRN PO TEMP > 100.4; Start 02/28/17 at 10: 00 Ondansetron HCl (Zofran Inj) 4 mg Q6H PRN IVP NAUSEA OR VOMITING; Start at 10:00 Naloxone HCl (Narcan Inj) 0.4 mg UNSCH PRN IV PUSH SEE LABEL COMMENTS; Start 02/28/17 at 10:00 Senna/Docusate Sodium (Valerie-Colace) 1 tab BID PO ; Start 02/28/17 at 21:00 Magnesium Hydroxide (Milk Of Magnesia Liq) 30 ml Q12H PRN PO Mild constipation ; Start 02/28/17 at 10:00 Sennosides (Senokot) 17.2 mg Q12H PRN PO Moderate constipation; Start at 10:00 Bisacodyl (Dulcolax Supp) 10 mg DAILY PRN RECTAL SEVERE CONSITIPATION; Start 02/28/17 at 10:00 Lactulose (Lactulose Liq) 30 ml DAILY PRN PO SEVERE CONSITIPATION; Start 02/28 at 10:00 Family History No family h/o renal cancer Mother from an DC at 60yo. no relationship with father, brothers, sisters. Social History Smokes 1 and 1/2 PPD x 60 years Former occasional etoh use, last EtOH use one beer a month ago Occasional marijuana use. Physical Exam Vital Signs Vital Signs Date Time Temp Pulse Resp B/P (MAP) Pulse Ox O2 Delivery O2 Flow Rate FiO2 02/28/17 11:33 97.6 75 14 129/60 97 02/28/17 10:45 98.1 53 20 127/60 (82) 100 02/28/17 10:25 65 17 143/69 (93) 97 02/28/17 08:48 97.8 61 16 123/67 (85) 100 Room Air Physical Exam GENERAL: This is a well-nourished, well-developed patient, in no apparent distress. SKIN: No rashes, ecchymoses or lesions. Cool and dry. HEAD: Atraumatic. Normocephalic. No temporal or scalp tenderness. EYES: Pupils equal round and reactive. Extraocular motions intact. No scleral icterus. No injection or drainage. ENT: Nose without bleeding, purulent drainage or septal hematoma. Throat without erythema, tonsillar hypertrophy or exudate. Uvula midline. Airway patent. NECK: Trachea midline. No JVD or lymphadenopathy. Supple, nontender, no meningeal signs. CARDIOVASCULAR: Regular rate and rhythm without murmurs, gallops, or rubs. RESPIRATORY: Diffuse rhonchi. No wheezes, rales. GASTROINTESTINAL: Abdomen soft, non-tender, nondistended. No hepato-splenomegaly , or palpable masses. No guarding. MUSCULOSKELETAL: Extremities without clubbing, cyanosis, or edema. No joint tenderness, effusion, or edema noted. No calf tenderness. Negative Homans sign bilaterally. NEUROLOGICAL: Awake and alert. Cranial nerves II through XII intact. Motor and sensory grossly within normal limits. Five out of 5 muscle strength in all muscle groups. Normal speech. Laboratory Laboratory Tests Test 02/28/17 09:05 White Blood Count 9.7 Red Blood Count 2.66 Hemoglobin 7.7 Hematocrit 23.8 Mean Corpuscular Volume 89.4 Mean Corpuscular Hemoglobin 28.8 Mean Corpuscular Hemoglobin Concent 32.3 Red Cell Distribution Width 18.3 Platelet Count 212 Mean Platelet Volume 9.8 Neutrophils (%) (Auto) 70.7 Lymphocytes (%) (Auto) 12.5 Monocytes (%) (Auto) 12.7 Eosinophils (%) (Auto) 3.5 Basophils (%) (Auto) 0.6 Neutrophils # (Auto) 6.9 Lymphocytes # (Auto) 1.2 Monocytes # (Auto) 1.2 Eosinophils # (Auto) 0.3 Basophils # (Auto) 0.1 CBC Comment DIFF FINAL Differential Comment Prothrombin Time 18.7 Prothromb Time International Ratio 1.7 Activated Partial Thromboplast Time 36.0 Blood Urea Nitrogen 39 Creatinine 1.45 Random Glucose 123 Calcium Level 7.6 Sodium Level 141 Potassium Level 4.3 Chloride Level 115 Carbon Dioxide Level 16.0 Anion Gap 10 Estimat Glomerular Filtration Rate 48 Result Diagram: 02/28/1790402/28/17904 Caprini VTE Risk Assessment Caprini VTE Risk Assessment: Mod/High Risk (score >= 2) Caprini Risk Assessment Model Point Value = 1 Point Value = 2 Point Value = 3 Point Value = 5 Age 41-60 Minor surgery BMI > 25 kg/m2 Swollen legs Varicose veins or History of unexplained or recurrent spontaneous Oral contraceptives or hormone replacement Sepsis (< 1 month) Serious lung disease, including pneumonia (< 1 month) Abnormal pulmonary function Acute myocardial infarction Congestive heart failure (< 1 month) History of inflammatory bowel disease Medical patient at bed rest Age 61-74 Arthroscopic surgery Major open surgery (> 45 min) Laparoscopic surgery (> 45 min) Malignancy Confined to bed (> 72 hours) Immobilizing plaster cast Central venous access Age >= 75 History of VTE Family history of VTE Factor V Leiden Prothrombin [id number] Lupus anticoagulant Anticardiolipin antibodies Elevated serum homocysteine Heparin-induced thrombocytopenia Other congenital or acquired thrombophilia Stroke (< 1 month) Elective arthroplasty Hip, pelvis, or leg fracture Acute spinal cord injury (< 1 month) Prophylaxis Regimen Total Risk Factor Score Risk Level Prophylaxis Regimen 0-1 Low Early ambulation 2 Moderate Order ONE of the following: *Sequential Compression Device (SCD) *Heparin 5000 units SQ BID 3-4 Higher Order ONE of the following medications: *Heparin 5000 units SQ TID *Enoxaparin/Lovenox 40 mg SQ daily (WT < 150 kg, CrCl > 30 mL/min) *Enoxaparin/Lovenox 30 mg SQ daily (WT < 150 kg, CrCl > 10-29 mL/min) *Enoxaparin/Lovenox 30 mg SQ BID (WT < 150 kg, CrCl > 30 mL/min) AND/OR *Sequential Compression Device (SCD) 5 or more Highest Order ONE of the following medications: *Heparin 5000 units SQ TID (Preferred with Epidurals) *Enoxaparin/Lovenox 40 mg SQ daily (WT < 150 kg, CrCl > 30 mL/min) *Enoxaparin/Lovenox 30 mg SQ daily (WT < 150 kg, CrCl > 10-29 mL/min) *Enoxaparin/Lovenox 30 mg SQ BID (WT < 150 kg, CrCl > 30 mL/min) AND *Sequential Compression Device (SCD) Assessment and Plan Assessment and Plan 71-year-old male with a recent admission due to GI bleed who presented for transfusion due to anemia Anemia -Most likely secondary to GI bleed. -From the last hospitalization hemoglobin is relatively stable. In January hemoglobin was 8.4 and now is 7.7. Patient does not have any gross bleeding. He does have a positive Hemoccult done in the ED. Patient is also on chronic anticoagulation with Coumadin with INR is 1.7. -Will hold Coumadin. Will give Protonix. -Patient already being transfused in the ED as ordered by the ED physician. Check a posttransfusion H&H and trend hemoglobin. -During his last admission and stated that he refuses a repeat colonoscopy patient stated that he did not refuse this and that he is willing to do anything possible to help him get better. -Will consult GI. GI Bleed- etiology unknown at this time -Per last admission. Etiology unknown at this time -last colonoscopy performed 11/2016 showed multiple colonic polyps -Patient is on Coumadin but INR is 1.7 and during his last admission GI state was okay to restart his Coumadin. There is no gross bleeding. -see treatment as above. Upper respiratory infection -This is viral in nature and worsened by current tobacco use. -Continue supportive care. hx Right Kidney Hemorrhage -Noted on last admission -CT abdomen showed spontaneous hemorrhage involving the right mid pole kidney measuring 6.5 cm in size. -Stabilize during last admission. He is asymptomatic at the moment. Bladder Stone -CT abdomen showed bladder stone measuring 1.61cm -Urology following, recommends follow up in the outpatient setting and dc with White in place. Chronic Kidney Disease stage 3 -Patient is status baseline. Continue to monitor creatinine. Avoid nephrotoxins. Strict ins and outs. Atrial fibrillation on chronic anticoagulation with Coumadin -INR is 1.7. The patient has GI bleed. Will hold until cleared by GI if this medication to be restarted. Hypertension/hyperlipidemia -Continue home medication. Diabetes Mellitus with neuropathy and retinopathy -Will start insulin sliding scale. Tobacco Use -Patient counseled on cessation. DVT prophylaxis- chemical prophylaxis contraindicated at this time secondary to active bleeding Code Status full Discussed Condition With patient Physician Certification 2 Midnight Certification Type: Admission for Inpatient Services Order for Inpatient Services The services are ordered in accordance with Medicare regulations or non- Medicare payer requirements, as applicable. In the case of services not specified as inpatient-only, they are appropriately provided as inpatient services in accordance with the 2-midnight benchmark. Estimated LOS (days): 3 3 days is the estimated time the patient will need to remain in the hospital, assuming treatment plan goals are met and no additional complications. Post-Hospital Plan: Lissy Fulton MD Feb 28, 2017 11:48
[2017-02-28] MEDS ORDERED: DEXTROSE 50% IN WATER 50 ML VIAL(D50) IV PUSH PRN (12:15)
[2017-02-28] MEDS ORDERED: GLUCAGON 1 MG/ML VIAL OTHER PRN (12:15)
--- NOTE | 2017-02-28 13:24 | PD.CONS ---
HPI History of Present Illness This is a 71 year old male with a history of anemia, multiple adenomatous colon polyps, and who is on anticoagulation with coumadin for atrial fibrillation, who was sent to the emergency room room after being found to have anemia on outpatient labs. Hemoccult was positive. The patient reports that he was actually feeling good until he went to the [place] and was told that he was anemic on labs and needed to go to the ER. He denies any more weakness than normal and no shortness of breath or chest pain. He has not seen any bleeding- specifically denying any black stools or hematochezia. He denies any nausea, vomiting, reflux, heartburn. He does have an occasional "twitch" on the right side of his abdomen but thinks this seems to have more to do with movement. He was hospitalized in November for anemia and chronic diarrhea and evaluated with EGD/Colonoscopy (11/23/16)----> nodular duodenitis, multiple colon polyps- especially in cecum, ascending, and transverse colon, unable to get good positioning to remove all the polyps. Cecal and ascending colon polyps removed, they were big but not worrisome for malignancy. At this point I would be concerned about high-grade dysplasia because of the length of the procedure I opted to stop at this point so as to await for pathology and then make a decision regarding further colonoscopies versus right hemicolectomy the rest of the colon appeared to be unremarkable for the most part. Pathology of small intestine duodenal mucosa with foveolar metaplasia, adenomatous polyps and tubulovillous adenomas, multiple fragments. He then had a repeat EGD/ Colonoscopy (01/29/17) for GIB/Anemia---> esophagus appeared normal, retroflexed views revealed no abnormalities, duodenitis, innumerable number of medium sized sessile polyps were found in the ascending colon, plypectomy was performed using snare cautery, two large sessile polyps were found in the transverse colon; polypectomy was performed using snare cautery, retroflexion was not performed. Pathology revealed features consistent with peptic duodenitis, mild mucosal edema, no helicobacter pylori-like organisms, tubular adenoma ascending colon, tubular adenoma in transverse colon. 2 month colonoscopy was recommended. (Jazz Mejia) PFSH Past Medical History Hyperlipidemia Tubulovillous colon polyps Esophagitis Duodenitis CAD, S/P PCI, stent Hyperlipidemia A. fib on Coumadin Anxiety COPD CHF AAA Repair CKD Chronic Back Pain DM Chronic pancreatitis Chronic diarrhea Anemia Gastritis, duodenitis Duodenal tubular adenoma Adenomatous/tubulovillous colon polyps Duodenal AVMs Past Surgical History EGD Colonoscopy Hernia Repair Cardiac Stent AAA Repair Tonsillectomy (Jazz Mejia) Coded Allergies: No Known Allergies (Verified Allergy, Unknown, 02/28/17) Medications Allergies Coded Allergies Type Severity Reaction Last Updated Verified No Known Allergies Allergy Unknown 02/28/17 Yes Active Scripts Medications Dose Route/Sig Max Daily Dose Days Date Category Dose Instructions Pantoprazole (Pantoprazole Sodium) 40 Mg Tab 40 Mg PO DAILY 01/30/17 Rx Ferosul (Ferrous Sulfate) 325 Mg Tablet 325 Mg PO DAILY 11/25/16 Rx Vitamin D3 (Cholecalciferol) 5,000 Unit Cap 5,000 Units PO DAILY 11/25/16 Rx Oyster Shell 250 mg + Vit D Tb (Calcium/Vitamin D) 250 Mg Calcium (625 Mg)-125 Unit Tablet 500 Mg PO Q12HR 11/25/16 Rx Rocaltrol (Calcitriol) 0.25 Mcg Cap 0.5 Mcg PO DAILY 11/25/16 Rx Losartan (Losartan Potassium) 25 Mg Tab 25 Mg PO DAILY 11/19/16 Reported Hydralazine HCl 25 Mg Tablet 10 Mg PO TID 11/19/16 Reported Warfarin 5 Mg Tab 5 Mg PO Sun11/19/16 Reported start if repeat labs 02/02 stable and ok by PCP Coreg (Carvedilol) 3.125 Mg Tab 3.125 Mg PO BID 02/10/16 Rx Warfarin 2.5 Mg Tab 2.5 Mg PO DAILY 02/06/16 Reported start if repeat labs 02/02 stable and ok by PCP Pravastatin 40 Mg Tab 40 Mg PO DAILY 02/06/16 Reported Family History Mother from an AL at 60yo. no relationship with father, brothers, sisters. Social History Smokes 1 and 1/2 PPD x 60 years Former occasional etoh use, last EtOH use one beer a month ago Occasional marijuana use. (Jazz eMjia) Review of Systems Constitutional: COMPLAINS OF: Weight loss (states a few lbs), DENIES: Fatigue, Fever, Change in appetite Respiratory: DENIES: Cough, Shortness of breath Cardiovascular: DENIES: Chest pain Gastrointestinal: COMPLAINS OF: Abdominal pain, DENIES: Black stools, Bloody stools, Constipation, Diarrhea, Nausea, Vomiting, Heartburn, Hematemesis Musculoskeletal: COMPLAINS OF: Back pain Neurologic: DENIES: Headache Psychiatric: DENIES: Confusion (Jazz Mejia) GI Exam Vitals I&O Vital Signs Date Time Temp Pulse Resp B/P (MAP) Pulse Ox O2 Delivery O2 Flow Rate FiO2 02/28/17 12:09 97.3 68 16 137/64 (88) 100 02/28/17 11:50 97.3 80 16 131/63 100 02/28/17 11:33 97.6 75 14 129/60 97 02/28/17 10:45 98.1 53 20 127/60 (82) 100 02/28/17 10:25 65 17 143/69 (93) 97 02/28/17 08:48 97.8 61 16 123/67 (85) 100 Room Air I/O 02/27/17 02/27/17 02/27/17 02/28/17 02/28/17 02/28/17 07:00 15:00 23:00 07:00 15:00 23:00 Intake Total 5 ml Balance 5 ml Intake Blood Product IV Normal Saline Flush 5 ml Laboratory Test 02/28/17 09:05 White Blood Count 9.7 TH/MM3 Red Blood Count 2.66 MIL/MM3 Hemoglobin 7.7 GM/DL Hematocrit 23.8 % Mean Corpuscular Volume 89.4 FL Mean Corpuscular Hemoglobin 28.8 PG Mean Corpuscular Hemoglobin Concent 32.3 % Red Cell Distribution Width 18.3 % Platelet Count 212 TH/MM3 Mean Platelet Volume 9.8 FL Neutrophils (%) (Auto) 70.7 % Lymphocytes (%) (Auto) 12.5 % Monocytes (%) (Auto) 12.7 % Eosinophils (%) (Auto) 3.5 % Basophils (%) (Auto) 0.6 % Neutrophils # (Auto) 6.9 TH/MM3 Lymphocytes # (Auto) 1.2 TH/MM3 Monocytes # (Auto) 1.2 TH/MM3 Eosinophils # (Auto) 0.3 TH/MM3 Basophils # (Auto) 0.1 TH/MM3 CBC Comment DIFF FINAL Differential Comment Prothrombin Time 18.7 SEC Prothromb Time International Ratio 1.7 RATIO Activated Partial Thromboplast Time 36.0 SEC Blood Urea Nitrogen 39 MG/DL Creatinine 1.45 MG/DL Random Glucose 123 MG/DL Calcium Level 7.6 MG/DL Sodium Level 141 MEQ/L Potassium Level 4.3 MEQ/L Chloride Level 115 MEQ/L Carbon Dioxide Level 16.0 MEQ/L Anion Gap 10 MEQ/L Estimat Glomerular Filtration Rate 48 ML/MIN Physical Examination HEENT: Normocephalic; atraumatic; no jaundice. CHEST: Irregular CARDIAC: RRR ABDOMEN: Soft, nondistended, nontender; no hepatosplenomegaly; bowel sounds are present in all four quadrants. EXTREMITIES: No clubbing, cyanosis, or edema. SKIN: Poor skin turgor. REFRACTORY TECHNICIAN: No focal deficits; alert and oriented times three. (Jazz Mejia) Assessment and Plan Plan ASSESSMENT: - Anemia with hemoccult positive stool. Pt well known to our service and has had multiple EGD/Colonoscopies for his history of adenomatous/tubulovillous colon polyps, esophagitis, duodenitis, duodenal tubular adenoma. He last had EGD/ Colonoscopy (01/29/17) for GIB/Anemia---> esophagus appeared normal, retroflexed views revealed no abnormalities, duodenitis, innumerable number of medium sized sessile polyps were found in the ascending colon, plypectomy was performed using snare cautery, two large sessile polyps were found in the transverse colon; polypectomy was performed using snare cautery, retroflexion was not performed. Pathology revealed features consistent with peptic duodenitis, mild mucosal edema, no helicobacter pylori-like organisms, tubular adenoma ascending colon, tubular adenoma in transverse colon. 2 month colonoscopy was recommended. He was noted to have anemia and sent to ER for transfusion, here had Hemoccult positive stool. He is not having any obvious active bleeding- denies any n/v , heartburn, melena, hematochezia. Occasional discomfort right side "stitch" r/ t movement. Agree with transfusion. If repeat HH stable and no obvious active bleeding, okay to resume anticoagulation and repeat colonoscopy in 1 month as recommended. - Multiple colon polyps, adenomatous and tubulovillous. Due for colonoscopy end of March. - Acute on chronic kidney disease. Creat 1.45. Recent hx of right kidney hemorrhage on CT scan. If HH drops drops with no obvious bleeding, recommend CT scan abdomen. - Atrial fibrillation on coumadin. - Hyperlipidemia, CAD, S/P PCI, stent, COPD, CHF, DM PLAN: - Heart healthy diabetic diet - Monitor HH - Transfuse as necessary - If no active bleeding and hh stable after transfusion, okay to resume coumadin and keep plan for colonoscopy next month - Consider CT scan abdomen and pelvis if drop in hgb (recent kidney hemorrhage) - Supportive care - Further recommendations to follow based on results of above - Pt seen and examined by Dr. Patton and myself and this note is written on his behalf (Jazz Mejia) Physician Comments Seen and examined with SARAH, NO active bleeding reported. Previous scopes reviewed. Outpt. colonoscopy as recommended. MOnitor labs. Will follow. (Dian Patton MD) Jazz Mejia Feb 28, 2017 13:24 Dian Patton MD Feb 28, 2017 15:44
[2017-02-28] MEDS: SODIUM CHLORIDE 0.9% FLUSH 10 ML FLUSH IV FLUSH PRN (14:59)
[2017-02-28] MEDS: PANTOPRAZOLE SODIUM 40 MG VIAL IV PUSH SCH (14:59)
[2017-02-28] MEDS: hydrALAZINE HCL 10 MG TAB PO SCH ×2 (15:00→17:33)
[2017-02-28] MEDS: INSULIN ASPART SUPPLEMENTAL SCALE SQ SCH ×2 (17:00→22:37)
[2017-02-28] MEDS: DOCUSATE SODIUM 50 MG/SENNA 8.6 MG TAB PO SCH (22:35)
[2017-02-28] MEDS: CARVEDILOL 3.125 MG TAB PO SCH (22:35)
[2017-02-28] MEDS: CALCIUM/VITAMIN D 250 MG/125 U TAB PO SCH (22:36)
[2017-02-28] MEDS: SODIUM CHLORIDE 0.9% FLUSH 10 ML FLUSH IV FLUSH SCH (22:36)
[2017-03-01] VITALS (13 sets, daily range): BP systolic 131–160; BP diastolic 62–74; PULSE 53–87; RESP 16–20; TEMP 97.2–98.8; O2SAT 96–98
[2017-03-01 01:26] LABS: REVIEW FLAG FINAL
[2017-03-01] MEDS ORDERED: FUROSEMIDE 20 MG/2 ML VIAL IV PUSH ONE (01:45)
[2017-03-01] MEDS ORDERED: SODIUM CHLOR 0.9% 250 ML INJ 250 ML IV ONE (01:45)
[2017-03-01] MEDS: SODIUM CHLORIDE 0.9% FLUSH 10 ML FLUSH IV FLUSH PRN (02:10)
[2017-03-01] MEDS: INSULIN ASPART SUPPLEMENTAL SCALE SQ SCH ×4 (08:00→21:34)
[2017-03-01] MEDS: DOCUSATE SODIUM 50 MG/SENNA 8.6 MG TAB PO SCH ×2 (09:00→21:25)
[2017-03-01] MEDS: CHOLECALCIFEROL (VIT D3) 5000 UNIT CAP PO SCH (10:30)
[2017-03-01] MEDS: PANTOPRAZOLE SODIUM 40 MG VIAL IV PUSH SCH (10:30)
[2017-03-01] MEDS: CALCIUM/VITAMIN D 250 MG/125 U TAB PO SCH ×2 (10:30→21:25)
[2017-03-01] MEDS: SODIUM CHLORIDE 0.9% FLUSH 10 ML FLUSH IV FLUSH SCH ×2 (10:30→21:26)
[2017-03-01] MEDS: CARVEDILOL 3.125 MG TAB PO SCH ×2 (10:30→21:25)
[2017-03-01] MEDS: PRAVASTATIN SOD 40 MG TAB PO SCH (10:30)
[2017-03-01] MEDS: hydrALAZINE HCL 10 MG TAB PO SCH ×3 (10:31→17:38)
[2017-03-01] MEDS: FERROUS SULFATE 325 MG (65 MG ELEMENTAL IRON) TAB PO SCH (10:31)
[2017-03-01] MEDS: LOSARTAN 25 MG TAB PO SCH (10:31)
[2017-03-01] MEDS: CALCITRIOL 0.25 MCG CAP PO SCH (10:31)
--- NOTE | 2017-03-01 10:49 | HHI.PR ---
Subjective Remarks The patient complained of chronic right-sided pain at his mid back over the past couple of months. He said his last transfusion finished about an hour ago. He says he has had multiple colonoscopies. He said he never did a video capsule study. Objective Vitals Vital Signs Date Time Temp Pulse Resp B/P (MAP) Pulse Ox O2 Delivery O2 Flow Rate FiO2 03/01/17 07:14 97.4 64 20 146/64 97 03/01/17 06:52 97.4 87 20 160/74 98 03/01/17 06:37 98.8 68 20 98 03/01/17 04:00 98.5 68 20 131/63 (85) 98 03/01/17 03:55 97.8 70 20 136/70 98 03/01/17 03:36 97.8 66 20 136/63 98 03/01/17 03:19 97.2 67 18 132/62 98 03/01/17 00:00 97.9 71 20 131/63 (85) 96 02/28/17 20:00 98.7 63 18 121/58 (79) 96 02/28/17 20:00 71 02/28/17 19:02 98.5 75 14 133/63 99 02/28/17 15:45 97.8 71 14 149/75 100 02/28/17 15:36 97.7 62 14 146/70 100 02/28/17 15:30 97.6 66 20 151/68 (95) 98 02/28/17 15:20 97.9 70 14 151/68 100 02/28/17 14:57 97.5 60 14 149/67 100 02/28/17 12:09 97.3 68 16 137/64 (88) 100 02/28/17 11:50 97.3 80 16 131/63 100 02/28/17 11:33 97.6 75 14 129/60 97 02/28/17 10:45 98.1 53 20 127/60 (82) 100 I/O 02/28/17 02/28/17 02/28/17 03/01/17 03/01/17 03/01/17 07:00 15:00 23:00 07:00 15:00 23:00 Intake Total 415 ml 895 ml 1140 ml 410 ml Output Total 2100 ml Balance 415 ml 895 ml -960 ml 410 ml Intake Oral 480 ml 720 ml Packed Cells 400 ml 400 ml 400 ml 400 ml Blood Product IV Normal Saline Flush 15 ml 15 ml 20 ml 10 ml Output Urine Total 2100 ml Result Diagram: 03/01/177 02/28/17904 Objective Remarks GENERAL: This is a well-nourished, well-developed patient, in no apparent distress. SKIN: No rashes, ecchymoses or lesions. Cool and dry. HEAD: Atraumatic. Normocephalic. No temporal or scalp tenderness. EYES: Pupils equal round and reactive. Extraocular motions intact. No scleral icterus. No injection or drainage. ENT: Nose without bleeding, purulent drainage or septal hematoma. Throat without erythema, tonsillar hypertrophy or exudate. Uvula midline. Airway patent. NECK: Trachea midline. No JVD or lymphadenopathy. Supple, nontender, no meningeal signs. CARDIOVASCULAR: Regular rate and rhythm without murmurs, gallops, or rubs. RESPIRATORY: No wheezes, rales. GASTROINTESTINAL: Abdomen soft, non-tender, nondistended. No hepato-splenomegaly , or palpable masses. No guarding. MUSCULOSKELETAL: Extremities without clubbing, cyanosis, or edema. No joint tenderness, effusion, or edema noted. NEUROLOGICAL: Awake and alert. Cranial nerves II through XII intact. Motor and sensory grossly within normal limits. Five out of 5 muscle strength in all muscle groups. Normal speech. PSYCH: Mood and affect appropriate. Medications and IVs Current Medications Medications (Trade) Dose Ordered Sig/Ana Route Start Time Stop Time Status Last Admin (NS Flush) 2 ml UNSCH PRN IV FLUSH 02/28/17 10:00 03/01/17 02:10 (NS Flush) 2 ml BID IV FLUSH 02/28/17 21:00 03/01/17 10:30 (Tylenol) 650 mg Q4H PRN PO 02/28/17 10:00 (Zofran Inj) 4 mg Q6H PRN IVP 02/28/17 10:00 (Narcan Inj) 0.4 mg UNSCH PRN IV PUSH 02/28/17 10:00 (Valerie-Colace) 1 tab BID PO 02/28/17 21:00 02/28/17 22:35 (Milk Of Magnesia Liq) 30 ml Q12H PRN PO 02/28/17 10:00 (Senokot) 17.2 mg Q12H PRN PO 02/28/17 10:00 (Dulcolax Supp) 10 mg DAILY PRN RECTAL 02/28/17 10:00 (Lactulose Liq) 30 ml DAILY PRN PO 02/28/17 10:00 (D50w (Vial) Inj) 50 ml UNSCH PRN IV PUSH 02/28/17 12:15 (Glucagon Inj) 1 mg UNSCH PRN OTHER 02/28/17 12:15 (NovoLOG SUPPLEMENTAL SCALE) 1 ACHS SLIDING SCALE SQ 02/28/17 17:00 02/28/17 22:37 (Protonix Inj) 40 mg DAILY IV PUSH 02/28/17 12:15 03/01/17 10:30 (Rocaltrol) 0.5 mcg DAILY PO 03/01/17 09:00 03/01/17 10:31 (Oscal-D 250-125) 500 mg Q12HR PO 02/28/17 21:00 03/01/17 10:30 (Coreg) 3.125 mg BID PO 02/28/17 21:00 03/01/17 10:30 (Vitamin D3) 5,000 units DAILY PO 03/01/17 09:00 03/01/17 10:30 (Ferrous Sulfate) 325 mg DAILY PO 03/01/17 09:00 03/01/17 10:31 (Apresoline) 10 mg TID PO 02/28/17 13:00 03/01/17 10:31 (Cozaar) 25 mg DAILY PO 03/01/17 09:00 03/01/17 10:31 (Pravachol) 40 mg DAILY PO 03/01/17 09:00 03/01/17 10:30 Sodium Chloride 250 ml @ 15 mls/hr ONCE ONCE IV 03/01/17 01:45 03/01/17 18:24 03/01/17 02:11 A/P Assessment and Plan Anemia Most likely secondary to GI bleed. From the last hospitalization hemoglobin is relatively stable. In January hemoglobin was 8.4 and now is 7.7. Patient does not have any gross bleeding. He does have a positive Hemoccult done in the ED. Patient is also on chronic anticoagulation with Coumadin with INR of 1.7. S/p 4 units red blood cells. - Will hold Coumadin. - Will give Protonix. - follow CBC and transfuse as needed. - GI following. Consider colonoscopy. History of right kidney hemorrhage Noted on last admission. CT abdomen showed spontaneous hemorrhage involving the right mid pole kidney measuring 6.5 cm in size. - follow up with urology as an outpt. - consider repeat CT scan. Bladder Stone CT abdomen showed bladder stone measuring 1.61cm on last admit. - Urology recommended follow up and to continue White. Consider consulting urology this admit. Chronic Kidney Disease stage 3 Patient is baseline. - Continue to monitor creatinine. - Avoid nephrotoxins. - Strict ins and outs. Atrial fibrillation On chronic anticoagulation with Coumadin. INR is 1.7. The patient has a GI bleed. - Will hold until cleared by GI if this medication to be restarted. Diabetes Mellitus With neuropathy and retinopathy. - Will start insulin sliding scale. Tobacco Use - Patient counseled on cessation. DVT prophylaxis- chemical prophylaxis contraindicated at this time secondary to active bleeding Discharge Planning Awaiting further input from GI. Possible d/c in 1-2 days Bertin Hirsch DO Mar 01, 2017 10:48
--- NOTE | 2017-03-01 12:20 | HHI.GIFU ---
Subjective Remarks Resting in bed, eating his turkey dinner. No n/v. No abdominal pain. No obvious bleeding. No bm for several days. (Jazz Mejia) Objective Vitals I&O Vital Signs Date Time Temp Pulse Resp B/P (MAP) Pulse Ox O2 Delivery O2 Flow Rate FiO2 03/01/17 07:14 97.4 64 20 146/64 97 03/01/17 06:52 97.4 87 20 160/74 98 03/01/17 06:37 98.8 68 20 98 03/01/17 04:00 98.5 68 20 131/63 (85) 98 03/01/17 03:55 97.8 70 20 136/70 98 03/01/17 03:36 97.8 66 20 136/63 98 03/01/17 03:19 97.2 67 18 132/62 98 03/01/17 00:00 97.9 71 20 131/63 (85) 96 02/28/17 20:00 98.7 63 18 121/58 (79) 96 02/28/17 20:00 71 02/28/17 19:02 98.5 75 14 133/63 99 02/28/17 15:45 97.8 71 14 149/75 100 02/28/17 15:36 97.7 62 14 146/70 100 02/28/17 15:30 97.6 66 20 151/68 (95) 98 02/28/17 15:20 97.9 70 14 151/68 100 02/28/17 14:57 97.5 60 14 149/67 100 I/O 02/28/17 02/28/17 02/28/17 03/01/17 03/01/17 03/01/17 07:00 15:00 23:00 07:00 15:00 23:00 Intake Total 415 ml 895 ml 1140 ml 410 ml Output Total 2100 ml Balance 415 ml 895 ml -960 ml 410 ml Intake Oral 480 ml 720 ml Packed Cells 400 ml 400 ml 400 ml 400 ml Blood Product IV Normal Saline Flush 15 ml 15 ml 20 ml 10 ml Output Urine Total 2100 ml Laboratory Laboratory Tests Test 02/28/17 20:36 03/01/17 00:57 Hemoglobin 7.6 7.4 Hematocrit 22.0 Physical Exam HEENT: Normocephalic; atraumatic; no jaundice. CHEST: Resp. shallow, even. Crackles in bases CARDIAC: RRR ABDOMEN: Soft, nondistended, nontender; no hepatosplenomegaly; bowel sounds are present in all four quadrants. EXTREMITIES: No clubbing, cyanosis, or edema. SKIN: Poor skin turgor SYSTEMS PROJECT MANAGER: No focal deficits; alert and oriented times three. (Jazz Mejia SARAH) Assessment and Plan Plan ASSESSMENT: - Anemia with hemoccult positive stool. Pt well known to our service and has had multiple EGD/Colonoscopies for his history of adenomatous/tubulovillous colon polyps, esophagitis, duodenitis, duodenal tubular adenoma. He last had EGD/ Colonoscopy (01/29/17) for GIB/Anemia---> esophagus appeared normal, retroflexed views revealed no abnormalities, duodenitis, innumerable number of medium sized sessile polyps were found in the ascending colon, plypectomy was performed using snare cautery, two large sessile polyps were found in the transverse colon; polypectomy was performed using snare cautery, retroflexion was not performed. Pathology revealed features consistent with peptic duodenitis, mild mucosal edema, no helicobacter pylori-like organisms, tubular adenoma ascending colon, tubular adenoma in transverse colon. 2 month colonoscopy was recommended. He was noted to have anemia and sent to ER for transfusion, here had Hemoccult positive stool. He is not having any obvious active bleeding- denies any n/v , heartburn, melena, hematochezia. Occasional discomfort right side "stitch" r/ t movement. Pt H/H decreasing despite 4 units of blood. 7.4/22.0. However, he has not had any obvious bleeding- no n/v, no pain, no melena, no hematochezia, and no bowel movement for several days. ? retroperitoneal bleed. No ecchymosis in flank area. Will get CT scan to evaluate, if no retroperitoneal bleed, then will plan for egd/colonoscopy. - Multiple colon polyps, adenomatous and tubulovillous. Due for colonoscopy end of March. - Acute on chronic kidney disease. Creat 1.45. Recent hx of right kidney hemorrhage on CT scan. Check CT scan - Atrial fibrillation on coumadin. - Hyperlipidemia, CAD, S/P PCI, stent, COPD, CHF, DM PLAN: - Possible egd/colonoscopy tomorrow if CT negative - Obtain consents - Clear liquids - NPO after MN - Golytely prep - CT Scan abdomen and pelvis to r/o retroperitoneal bleed - Call GI with results of CT scan - Monitor HH - Transfuse as necessary - Supportive care - Further recommendations to follow based on results of above - Pt seen and examined by Dr. Patton and myself and this note is written on his behalf (Jazz Mejia) Physician Comments Seen and examined with SARAH, drop in H/H but no signs of bleeding. CT ordered to R/o Retroperitoneal bleed. ? egd /colonoscopy tomorrow. (Dian Patton MD) Jazz Mejia Mar 01, 2017 12:20 Dian Patton MD Mar 01, 2017 14:20
[2017-03-01 12:21] LABS: HEMATOCRIT 28.8 % (39.0-51.0); REVIEW FLAG FINAL
[2017-03-01 12:31] LABS: INTERNATIONAL NORMALIZED RATIO 1.2 RATIO; PROTHROMBIN TIME - PATIENT 13.4 SEC (9.8-11.6)
--- NOTE | 2017-03-01 14:21 | RADRPT ---
EXAM DATE/TIME: 03/01/2017 14:01 [facility] COMPARISON: CT ABDOMEN & PELVIS W/O CONTRAST, January 22, 2017, 9:53. INDICATIONS : Anemia, history of renal hemorrhage ORAL CONTRAST: No oral contrast ingested. RADIATION DOSE: 14.23 CTDIvol (mGy) MEDICAL HISTORY : Diabetes mellitus type 2. Pancreatitis. Aneurysm, abdominal.Left renal cancer SURGICAL HISTORY : Abdominal aortic aneurysm repair. ENCOUNTER: Initial ACUITY: 1 day PAIN SCALE: 8/10 LOCATION: Right flank TECHNIQUE: Volumetric scanning of the abdomen and pelvis was performed. Using automated exposure control and ad justment of the mA and/or kV according to patient size, radiation dose was kept as low as reasonably achievable to obtain optimal diagnostic quality images. DICOM format image data is available electro nically for review and comparison. FINDINGS: Prior CT had demonstrated a hemorrhage adjacent to the lateral midpole of the right kidney indenting on the lateral margin. This abnormality has increased in size, measuring 8.5 cm (previously measured 7.0 cm) multiple bilateral renal cysts, some of which are hyperdense, are stable in appearance and s ize when compared to prior exam. No evidence of hydronephrosis. No calcified renal stones. White catheter within the urinary bladder. There is a 1 cm calcification within the urinary bladder characteristic of an elongated stone, similar appearance to prior exam. No dilated loops of small or large bowel. Diffuse calcifications throughout the pancreas stable. Mu ltiple hemoclips about the umbilical hernia repair. Aortic and iliac stents in place. The liver spl een and adrenal glands are intact. Wide windows for bony detail demonstrates diffuse osteopenia. CONCLUSION: 1. Interval increase in the size of the right perirenal hematoma, now measuring 8.5 cm. 2. Other findings are stable compared to prior CT. Blaze Marshall MD on March 01, 2017 at 14:15 Board Certified Radiologist. This report was verified electronically.
[2017-03-01 15:04] LABS: AUTOMATED NEUTROPHIL # 6.7 TH/MM3 (1.8-7.7); BASOPHIL # 0.1 TH/MM3 (0-0.2); BASOPHIL % 0.8 % (0.0-2.0); EOSINOPHIL # 0.3 TH/MM3 (0-0.4); EOSINOPHIL % 3.3 % (0.0-4.0); HEMATOCRIT 29.7 % (39.0-51.0); HEMO FLAGS DIFF FINAL; LYMPHOCYTE # 1.5 TH/MM3 (1.0-4.8); MEAN CELL VOLUME 87.9 FL (80.0-100.0); MEAN CORPUSCULAR HEMOGLOBIN 30.1 PG (27.0-34.0); MEAN CORPUSCULAR HGB CONC 34.3 % (32.0-36.0); MONO % 10.1 % (0.0-8.0); NEUT % 69.8 % (16.0-70.0); PLATELET COUNT 167 TH/MM3 (150-450); RED BLOOD COUNT 3.38 MIL/MM3 (4.50-5.90); RED CELL DISTRIBUTION WIDTH 16.9 % (11.6-17.2); WHITE BLOOD COUNT 9.5 TH/MM3 (4.0-11.0)
[2017-03-01 15:48] LABS: BICARBONATE 16.6 MEQ/L (21.0-32.0); POTASSIUM 4.3 MEQ/L (3.5-5.1)
[2017-03-01 16:00] LABS: CALCIUM-PROTEIN CORRECTED 8.2 MG/DL (8.5-10.1)
[2017-03-01] MEDS ORDERED: PEG (High)/E-LYTE SOLN 4000 ML BTL PO ONE (16:00)
[2017-03-01] MEDS ORDERED: ACETAMINOPHEN 500 MG CPLT PO PRN (21:45)
[2017-03-02] VITALS (8 sets, daily range): BP systolic 129–149; BP diastolic 65–72; PULSE 60–76; RESP 18–20; TEMP 97.1–98.1; O2SAT 94–99
[2017-03-02 02:18] LABS: HEMATOCRIT 27.3 % (39.0-51.0); REVIEW FLAG FINAL
[2017-03-02] MEDS: INSULIN ASPART SUPPLEMENTAL SCALE SQ SCH ×4 (08:00→21:00)
[2017-03-02 08:03] LABS: HEMATOCRIT 29.1 % (39.0-51.0); MEAN CELL VOLUME 86.8 FL (80.0-100.0); MEAN CORPUSCULAR HGB CONC 33.4 % (32.0-36.0); PLATELET COUNT 169 TH/MM3 (150-450); RED BLOOD COUNT 3.35 MIL/MM3 (4.50-5.90); RED CELL DISTRIBUTION WIDTH 16.5 % (11.6-17.2); REVIEW FLAG FINAL; WHITE BLOOD COUNT 10.7 TH/MM3 (4.0-11.0)
[2017-03-02] MEDS: DOCUSATE SODIUM 50 MG/SENNA 8.6 MG TAB PO SCH ×2 (08:29→21:14)
[2017-03-02] MEDS: hydrALAZINE HCL 10 MG TAB PO SCH ×3 (08:33→18:16)
[2017-03-02] MEDS: PANTOPRAZOLE SODIUM 40 MG VIAL IV PUSH SCH (08:33)
[2017-03-02] MEDS: FERROUS SULFATE 325 MG (65 MG ELEMENTAL IRON) TAB PO SCH (08:33)
[2017-03-02] MEDS: CALCITRIOL 0.25 MCG CAP PO SCH (08:33)
[2017-03-02] MEDS: LOSARTAN 25 MG TAB PO SCH (08:33)
[2017-03-02] MEDS: CHOLECALCIFEROL (VIT D3) 5000 UNIT CAP PO SCH (08:33)
[2017-03-02] MEDS: PRAVASTATIN SOD 40 MG TAB PO SCH (08:33)
[2017-03-02] MEDS: CALCIUM/VITAMIN D 250 MG/125 U TAB PO SCH ×2 (08:33→21:14)
[2017-03-02] MEDS: CARVEDILOL 3.125 MG TAB PO SCH (08:34)
[2017-03-02] MEDS: SODIUM CHLORIDE 0.9% FLUSH 10 ML FLUSH IV FLUSH SCH ×2 (08:34→21:14)
--- NOTE | 2017-03-02 10:13 | HHI.GIFU ---
Subjective Remarks Resting in bed. No complaints. Hoping to go home soon. States he wants to stop his coumadin. No GI symptoms. Tolerating diet. (Jazz Mejia) Objective Vitals I&O Vital Signs Date Time Temp Pulse Resp B/P (MAP) Pulse Ox O2 Delivery O2 Flow Rate FiO2 03/02/17 08:00 98.1 75 18 129/67 (87) 96 03/02/17 04:00 97.1 64 18 133/66 (88) 95 03/02/17 00:00 97.6 68 20 149/65 (93) 96 03/01/17 20:00 57 03/01/17 20:00 97.5 65 16 143/70 (94) 96 03/01/17 16:00 97.8 65 20 142/67 (92) 96 03/01/17 12:00 98.1 71 20 138/63 (88) 98 I/O 03/01/17 03/01/17 03/01/17 03/02/17 03/02/17 03/02/17 07:00 15:00 23:00 07:00 15:00 23:00 Intake Total 1140 ml 410 ml 960 ml 240 ml Output Total 2100 ml 1350 ml 900 ml Balance -960 ml 410 ml -390 ml -660 ml Intake Oral 720 ml 960 ml 240 ml Packed Cells 400 ml 400 ml Blood Product IV Normal Saline Flush 20 ml 10 ml Output Urine Total 2100 ml 1350 ml 900 ml # Bowel Movements 0 1 Laboratory Laboratory Tests Test 03/01/17 12:00 03/01/17 14:31 03/02/17 01:35 03/02/17 07:54 Hemoglobin 9.7 10.2 9.3 9.7 Hematocrit 28.8 29.7 27.3 29.1 Prothrombin Time 13.4 Prothromb Time International Ratio 1.2 White Blood Count 9.5 10.7 Red Blood Count 3.38 3.35 Mean Corpuscular Volume 87.9 86.8 Mean Corpuscular Hemoglobin 30.1 29.0 Mean Corpuscular Hemoglobin Concent 34.3 33.4 Red Cell Distribution Width 16.9 16.5 Platelet Count 167 169 Mean Platelet Volume 10.0 9.4 Neutrophils (%) (Auto) 69.8 Lymphocytes (%) (Auto) 16.0 Monocytes (%) (Auto) 10.1 Eosinophils (%) (Auto) 3.3 Basophils (%) (Auto) 0.8 Neutrophils # (Auto) 6.7 Lymphocytes # (Auto) 1.5 Monocytes # (Auto) 1.0 Eosinophils # (Auto) 0.3 Basophils # (Auto) 0.1 CBC Comment DIFF FINAL Differential Comment Blood Urea Nitrogen 32 Creatinine 1.58 Random Glucose 170 Total Protein 5.5 Calcium Level 7.3 Sodium Level 139 Potassium Level 4.3 Chloride Level 114 Carbon Dioxide Level 16.6 Anion Gap 8 Estimat Glomerular Filtration Rate 43 Protein Corrected Calcium 8.2 Imaging Last Impressions Abdomen/Pelvis CT 03/01/17 0000 Signed Impressions: Service Date/Time: February 14:01 - CONCLUSION: 1. Interval increase in the size of the right perirenal hematoma, now measuring 8.5 cm. 2. Other findings are stable compared to prior CT. Blaze Marshall MD Physical Exam HEENT: Normocephalic; atraumatic; no jaundice. CHEST: Resp. shallow, even. Diminished bases CARDIAC: RRR ABDOMEN: Soft, nondistended, nontender; no hepatosplenomegaly; bowel sounds are present in all four quadrants. EXTREMITIES: No clubbing, cyanosis, or edema. SKIN: Poor skin turgor WIRE TAPER: No focal deficits; alert and oriented times three. (Jazz Mejia) Assessment and Plan Plan ASSESSMENT: - Anemia with hemoccult positive stool. Pt well known to our service and has had multiple EGD/Colonoscopies for his history of adenomatous/tubulovillous colon polyps, esophagitis, duodenitis, duodenal tubular adenoma. He last had EGD/ Colonoscopy (01/29/17) for GIB/Anemia---> esophagus appeared normal, retroflexed views revealed no abnormalities, duodenitis, innumerable number of medium sized sessile polyps were found in the ascending colon, plypectomy was performed using snare cautery, two large sessile polyps were found in the transverse colon; polypectomy was performed using snare cautery, retroflexion was not performed. Pathology revealed features consistent with peptic duodenitis, mild mucosal edema, no helicobacter pylori-like organisms, tubular adenoma ascending colon, tubular adenoma in transverse colon. 2 month colonoscopy was recommended. He was noted to have anemia and sent to ER for transfusion, here had Hemoccult positive stool. He is not having any obvious active bleeding- denies any n/v , heartburn, melena, hematochezia. Occasional discomfort right side "stitch" r/ t movement. S/P 4 units PRBC. HH now stable 9.7/29.1. CT scan abdomen and pelvis (03/01)---> Interval increase in the size of the right perirenal hematoma, now measuring 8.4 cm. Other findings are stable compared to prior CT. - Multiple colon polyps, adenomatous and tubulovillous. Due for colonoscopy end of March. - Acute on chronic kidney disease. Creat 1.58. Recent hx of right kidney hemorrhage on CT scan. CT as above - Atrial fibrillation. Coumadin on hold - Hyperlipidemia, CAD, S/P PCI, stent, COPD, CHF, DM PLAN: - [facility] - Monitor HH - Transfuse as necessary - Rpt. Colonoscopy end of March as planned - Most likely, his anemia is secondary to right perirenal hematoma - GI will sign off. Please reconsult as needed - Pt seen and examined by Dr. Patton and myself and this note is written on his behalf (Jazz Mejia) Physician Comments Seen and examined, no active gib. Monitor labs. ? surgery consult. GI fu as needed. Thank you (Dian Patton MD) aJzz Mejia Mar 02, 2017 10:13 Dian Patton MD Mar 02, 2017 14:21
--- NOTE | 2017-03-02 11:48 | HHI.PR ---
Subjective Remarks The patient was resting comfortably in bed. He was looking forward to going home soon. He was happy he didn't have to go through with the colonoscopy. He denies any chest pain or limitations. Discussed with nursing. Objective Vitals Vital Signs Date Time Temp Pulse Resp B/P (MAP) Pulse Ox O2 Delivery O2 Flow Rate FiO2 03/02/17 08:00 98.1 75 18 129/67 (87) 96 03/02/17 04:00 97.1 64 18 133/66 (88) 95 03/02/17 00:00 97.6 68 20 149/65 (93) 96 03/01/17 20:00 57 03/01/17 20:00 97.5 65 16 143/70 (94) 96 03/01/17 16:00 97.8 65 20 142/67 (92) 96 03/01/17 12:00 98.1 71 20 138/63 (88) 98 I/O 03/01/17 03/01/17 03/01/17 03/02/17 03/02/17 03/02/17 07:00 15:00 23:00 07:00 15:00 23:00 Intake Total 1140 ml 410 ml 960 ml 240 ml Output Total 2100 ml 1350 ml 900 ml Balance -960 ml 410 ml -390 ml -660 ml Intake Oral 720 ml 960 ml 240 ml Packed Cells 400 ml 400 ml Blood Product IV Normal Saline Flush 20 ml 10 ml Output Urine Total 2100 ml 1350 ml 900 ml # Bowel Movements 0 1 Result Diagram: 03/02/17 0754 03/01/17 1431 Imaging Last Impressions Abdomen/Pelvis CT 03/01/17 0000 Signed Impressions: Service Date/Time: February 14:01 - CONCLUSION: 1. Interval increase in the size of the right perirenal hematoma, now measuring 8.5 cm. 2. Other findings are stable compared to prior CT. Blaze Marshall MD Objective Remarks GENERAL: This is a well-nourished, well-developed patient, in no apparent distress. SKIN: No rashes, ecchymoses or lesions. Cool and dry. HEAD: Atraumatic. Normocephalic. No temporal or scalp tenderness. EYES: Pupils equal round and reactive. Extraocular motions intact. No scleral icterus. No injection or drainage. ENT: Nose without bleeding, purulent drainage or septal hematoma. Throat without erythema, tonsillar hypertrophy or exudate. Uvula midline. Airway patent. NECK: Trachea midline. No JVD or lymphadenopathy. Supple, nontender, no meningeal signs. CARDIOVASCULAR: Irregularly irregular without murmurs, gallops, or rubs. RESPIRATORY: No wheezes, rales. GASTROINTESTINAL: Abdomen soft, non-tender, nondistended. No hepato-splenomegaly , or palpable masses. No guarding. MUSCULOSKELETAL: Extremities without clubbing, cyanosis, or edema. No joint tenderness, effusion, or edema noted. NEUROLOGICAL: Awake and alert. Cranial nerves II through XII intact. Motor and sensory grossly within normal limits. Five out of 5 muscle strength in all muscle groups. Normal speech. PSYCH: Mood and affect appropriate. Medications and IVs Current Medications Medications (Trade) Dose Ordered Sig/Ana Route Start Time Stop Time Status Last Admin (NS Flush) 2 ml UNSCH PRN IV FLUSH 02/28/17 10:00 03/01/17 02:10 (NS Flush) 2 ml BID IV FLUSH 02/28/17 21:00 03/02/17 08:34 (Zofran Inj) 4 mg Q6H PRN IVP 02/28/17 10:00 (Narcan Inj) 0.4 mg UNSCH PRN IV PUSH 02/28/17 10:00 (Valerie-Colace) 1 tab BID PO 02/28/17 21:00 03/01/17 21:25 (Milk Of Magnesia Liq) 30 ml Q12H PRN PO 02/28/17 10:00 (Senokot) 17.2 mg Q12H PRN PO 02/28/17 10:00 (Dulcolax Supp) 10 mg DAILY PRN RECTAL 02/28/17 10:00 (Lactulose Liq) 30 ml DAILY PRN PO 02/28/17 10:00 (D50w (Vial) Inj) 50 ml UNSCH PRN IV PUSH 02/28/17 12:15 (Glucagon Inj) 1 mg UNSCH PRN OTHER 02/28/17 12:15 (NovoLOG SUPPLEMENTAL SCALE) 1 ACHS SLIDING SCALE SQ 02/28/17 17:00 03/01/17 21:34 (Protonix Inj) 40 mg DAILY IV PUSH 02/28/17 12:15 03/02/17 08:33 (Rocaltrol) 0.5 mcg DAILY PO 03/01/17 09:00 03/02/17 08:33 (Oscal-D 250-125) 500 mg Q12HR PO 02/28/17 21:00 03/02/17 08:33 (Coreg) 3.125 mg BID PO 02/28/17 21:00 03/02/17 08:34 (Vitamin D3) 5,000 units DAILY PO 03/01/17 09:00 03/02/17 08:33 (Ferrous Sulfate) 325 mg DAILY PO 03/01/17 09:00 03/02/17 08:33 (Apresoline) 10 mg TID PO 02/28/17 13:00 03/02/17 08:33 (Cozaar) 25 mg DAILY PO 03/01/17 09:00 03/02/17 08:33 (Pravachol) 40 mg DAILY PO 03/01/17 09:00 03/02/17 08:33 (Tylenol) 500 mg Q6H PRN PO 03/01/17 21:45 A/P Assessment and Plan Anemia Most likely secondary to GI bleed. From the last hospitalization hemoglobin is relatively stable. In January hemoglobin was 8.4 and now is 7.7. Patient does not have any gross bleeding. He does have a positive Hemoccult done in the ED. Patient is also on chronic anticoagulation with Coumadin with INR of 1.7. S/p 4 units red blood cells. Hemoglobin currently stable. GI consult appreciated. - Will hold Coumadin. - Protonix. - follow CBC and transfuse as needed. - GI to perform colonoscopy as scheduled in the outpt setting. Right kidney hemorrhage Noted on last admission. CT abdomen showed spontaneous hemorrhage involving the right mid pole kidney measuring 6.5 cm in size. Repeat CT showed increasing size to 8.5 cm. - continue to hold Coumadin. - hematology consult requested. - discussed with urology over the phone, conservative measures would be favored at this time. - follow CBC. Bladder Stone CT abdomen showed bladder stone measuring 1.61cm on last admit. - Last admission urology recommended to continue White. - urology consult if needed. Chronic Kidney Disease stage 3 Patient is baseline. - Continue to monitor creatinine. - Avoid nephrotoxins. - Strict ins and outs. Atrial fibrillation/ V tach On chronic anticoagulation with Coumadin. INR is 1.2. The patient has been having problems with bleeding. The pt had a run of V tach vs A fib with aberrancy 03/02. - Will hold Coumadin and follow up with hematology. - telemetry. - increase Coreg to 6.25 mg BID. Diabetes Mellitus With neuropathy and retinopathy. - insulin sliding scale. Tobacco Use - Patient counseled on cessation. DVT prophylaxis- chemical prophylaxis contraindicated at this time secondary to active bleeding Discharge Planning Awaiting input from hematology. Possible d/c later today or tomorrow Bertin Hirsch DO Mar 02, 2017 11:47
[2017-03-02] MEDS ORDERED: CARVEDILOL 3.125 MG TAB PO ONE (12:00)
[2017-03-02] MEDS ORDERED: CALCIUM GLUCONATE INJ 1 GM in SODIUM CHLORIDE 0.9% INJ 100 ML IV ONE (12:00)
--- NOTE | 2017-03-02 17:53 | MB ---
cc: MISAEL ANDUJAR MD DATE OF CONSULTATION: 03/02/2017. REASON FOR CONSULTATION: Right perinephric hemorrhage in association with an underlying cyst. The hematology service was asked to see the patient to rule out an underlying coagulopathy. PRIMARY CARE PHYSICIANS: At the [facility] in [place]. REQUESTING PHYSICIAN: Consult requested by the hospitalist service. CHIEF COMPLAINT: Mr. Mary reports progressive right-sided flank pain. He reports feeling increasingly weak and tired as well. The symptoms have worsened over the past two to three weeks. He also reports an unintended 140 pound weight loss over the past four years or so and progressive weakness and fatigue, which have also been ongoing over this period of time the etiology of which is not known. HISTORY OF PRESENT ILLNESS: Mr. Mary is a 71-year-old male of the [place] . 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 The patient is also a smoker, having smoked about a dkin-prb-m-half a day for the past fifty years or so. He lives at home with his son and daughter, both of whom are adults. 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 Mr. Mary is a gentleman with multiple medical comorbid conditions. He has a history of atrial fibrillation, coronary artery disease (status post coronary artery stent placement), diabetes, hypertension, hyperlipidemia as well as aortic aneurysms requiring aortic stents. Mr. Mary also has bilateral kidney cysts, and these can be noted on CT scans of the abdomen going back to 2010. The left kidney seems to be the one that has been more heavily involved; however, a cyst involving the right kidney seemed to have been enlarging up until November of 2016. He developed in mid January of 2017 a hemorrhage associated with one of the cysts in the right kidney. He was on warfarin at that time. The patient has been on warfarin for the past five years or so for management of his history of atrial fibrillation as well as a history of pulmonary embolus which was diagnosed and treated about five years ago. Over the past fmmma-[id number]-[id number]-half or so the perinephric hemorrhage associated with a cyst on the right side seems to have enlarged. I have been asked to the patient for further workup and management. At last visit, the patient was also seen by urology who recommended conservative management. PAST MEDICAL HISTORY: 1. Atrial fibrillation. 2. Aortic aneurysm involving the thoracic aorta as well as the abdominal aorta. 3. Bilateral renal cysts. 4. Coronary artery disease. 5. Type 2 diabetes. 6. Hypertension. 7. COPD. 8. Personal history of tobaccoism (approximately a 75 pack/year history). 9. History of recurrent pancreatitis with diffuse pancreatic calcifications. PAST SURGICAL HISTORY: 1. Aortic stent placement. 2. Coronary artery stent placement. 3. Tonsillectomy. 4. Bilateral inguinal hernia repair. 5. Umbilical hernia repair. FAMILY HISTORY: The parents both in their 70s. Cause of father's not known. Mom of complications of heart disease. ALLERGIES: NO KNOWN DRUG ALLERGIES. SOCIAL HISTORY: He is a . He is a [place] . He has two children of his own, ages between 40 and 37 years. He lives at home with two of them. He is originally from [facility]. 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 He reports drinking on weekends only but not heavily. He never was an alcoholic per his own description. CURRENT INPATIENT MEDICATIONS: 1. Tylenol 500 milligrams every six hours as needed for pain. 2. Calcitriol 0.5 micrograms once a day. 3. Calcium with vitamin D 500 milligrams p.o. q.12. 4. Coreg 625 milligrams p.o. q. 12 hours. 5. Vitamin D3 5000 units p.o. daily. 6. Colace / Senna one tablet twice a day. 7. Ferrous sulfate 325 milligrams once daily. 8. Hydralazine 10 milligrams p.o. three times a day. 9. Lactulose. 10. Losartan 25 milligrams once a day. 11. Low-dose insulin sliding scale. 12. Magnesium hydroxide 30 mL p.o. q. 12 hours as needed for constipation. 13. Zofran 4 milligrams IV q. 6 hours as needed. 14. Oxycodone 5 milligrams p.o. q. 4 hours. 15. Pantoprazole 40 milligrams IV daily. 16. Senokot 17.2 milligrams p.o. q. 12 hours. 17. Pravastatin 40 milligrams p.o. daily. REVIEW OF SYSTEMS: CONSTITUTIONAL: The patient reports generalized weakness, fatigue, unintended weight loss, he reports his appetite has been fair. He tells me he spends most of his time in a recliner or in bed. HEAD, EYES, EARS, NOSE, THROAT: Denies headaches, blurry vision, difficulty swallowing or soreness in the throat. RESPIRATORY: Reports exertional dyspnea, reports chronic cough producing phlegm, denies angina-like chest pain. CARDIOVASCULAR: Denies angina-like chest pain, PND, orthopnea. He denies lower extremity swelling. GI: Denies nausea, vomiting, diarrhea hematochezia, melena. : Denies dysuria, hematuria, urinary incontinence. 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 He denies any focal sensory or motor deficits such as a stroke. MUSCULOSKELETAL: He tells me his left leg feels a little bit weaker than his right leg. PHYSICAL EXAMINATION: VITAL SIGNS: Temperature 97.6 degrees Fahrenheit, heart rate 69 beats per minute, respiratory rate 18, blood pressure 148/67, O2 sats 94% on room air. GENERAL APPEARANCE: Mr. Mary is an elderly male, he is laying in bed, he appears to be no acute distress and has a pleasant disposition. He appears to be chronically ill and pale. HEAD, EYES, EARS, NOSE, THROAT: Head is atraumatic, normocephalic. Conjunctivae are mildly pale, sclerae are anicteric. Extraocular muscles intact. Pupils equal, round and reactive to light and accommodation. ORAL EXAM: No pharyngeal erythema. NECK EXAM: No palpable cervical or supraclavicular lymphadenopathy. RESPIRATORY: The patient has abnormal breath sounds bilaterally with coarse crepitus, prolonged expiratory phase and scattered rales. CARDIOVASCULAR: Irregular rhythm, S1-S2. No obvious murmurs, rubs or gallops. ABDOMEN: Thin belly, soft, nontender, no palpable hepatosplenomegaly. He does have a firm irregular lesion noted in the area of the umbilicus. He tells me this has been there since he underwent umbilical hernia repair. AXILLARY EXAMINATION: No axillary lymphadenopathy. LOWER EXTREMITIES: Atrophic muscles of the lower extremities without pretibial edema. MUSCULOSKELETAL: He has general muscle atrophy. CERTIFIED PROFESSIONAL MIDWIFE: No obvious focal sensory or motor deficits noted. LABORATORY FINDINGS: Blood work dated 03/02/2017: WBC count 10.7, hemoglobin 9.7 gm/dl, hematocrit 29%, platelet count 169,000, absolute neutrophil count is 6.7. Chemistries: Sodium 139, potassium 4.3, chloride is 114, bicarb 16.6, BUN 32, creatinine 1.58, random glucose 170, calcium 7.3, corrected calcium is 8.2, magnesium is 1.8, total protein 5.5. Liver function testing dated 01/23/2017: AST 39, ALT 24, alkaline phosphatase 323, albumin was 1.6. Serum iron studies from November of 2016 indicate iron saturation level of 9.8, iron level of 25, TIBC of 256. Ferritin level was last performed in January of 2016 and at that time was noted to be low at 24. PTH intact was noted to be 924 in November of 2016. IMAGING STUDIES: CT scan of the abdomen and pelvis dated 03/01/2017: Interval increase in size of the right perirenal hematoma which now measures 8.5 cm, otherwise stable findings as compared to the scan from January of 2017. ASSESSMENT: Mr. Mary is a 71-year-old male who appears to be chronically ill. He has multiple medical comorbid conditions and include cardiovascular disease, aortic aneurysms, type 2 diabetes, COPD, extensive personal history of tobaccoism with a greater than 75 pack-year history of smoking, radiographic evidence of recurrent pancreatitis with resultant diffuse pancreatic calcifications, a generalized adult failure to thrive with resultant 138-150 pound weight loss over the past five years. He is essentially bed-bound and has an ECOG performance status of 3, i.e., requires assistance with many activities of daily living including getting to the bathroom, self-care at baseline. This patient also has a history of pulmonary embolus about five to six years ago as well as chronic atrial fibrillation for which he had been on anticoagulation with warfarin. The patient's PT/INR have been managed by his [facility]. This patient does have multiple renal cysts most of which seem to be stable; however, he had a cystic lesion involving the mid pole of the right kidney which had been enlarging between [address] scan from November of 2016 revealed the cystic lesion to be without evidence of hemorrhage. Repeat CT scan in January of 2017 revealed a hemorrhage within that cyst on the right side. Repeat imaging studies from February of 2017 revealed the hemorrhage to have enlarged. He has been on anticoagulation, which likely has contributed. RECOMMENDATIONS: The oncology service has been asked to see him to further evaluate this hemorrhage. From my standpoint, this individual has an enlarging renal cyst that bled, it is likely the enlargement of the cyst accompanied by anticoagulation resulted in the hemorrhage. I suspect the hemorrhage worsened over the past month and a half due to resumption of anticoagulation. I do not suspect an underlying clotting disorder or an underlying issue with hemostasis in the absence of warfarin. RECOMMENDATIONS: From a hematologic standpoint, I would recommend he evaluated by urology to determine if this cystic lesion which has now bled needs any surgical interventions. It may be reasonable to treat him symptomatically and conservatively. There are competing issues in play; the pararenal hemorrhage would be a contraindication for anticoagulation. However, his history of atrial fibrillation as well as coronary artery disease is an indication to resume anticoagulation. 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 He has no apparent intrinsic clotting disorder. MD MARTIN Anaya/TANYA /3:27 PM /5:13 PM
--- NOTE | 2017-03-02 17:58 | PD.CONS ---
HPI Service Urology Consult Requested By Reason for Consult Perirenal hematoma Primary Care Physician [facility] Diagnosis: History of Present Illness 71yo male with history of CHF, CAD, COPD, CKD, DM, and afib with AAA on coumadin seen in consultation for valerie-renal bleed. Patient was recently hospitalized for similar issues over one month ago. At that time he had a noted right perirenal bleed, however did not appear to have an acute significant persistent bleed and was successfully managed conservatively. CT scan now shows some expansion of this hematoma to 8.5cm (from 6.5cm). His Hgb upon admit was in the 7s, however has improved with transfusion. Currently reports no pain. His urine remains clear. No fevers. He is undergoing GI eval for suspected GI bleed as well. Patient has chronic indwelling urethral catheter Review of Systems ROS Limitations: Clinical Condition Constitutional: DENIES: Fever Endocrine: DENIES: Heat/cold intolerance Eyes: DENIES: Diplopia Ears, nose, mouth, throat: DENIES: Tinnitus, Hearing loss Respiratory: COMPLAINS OF: Cough Cardiovascular: DENIES: Chest pain Gastrointestinal: DENIES: Abdominal pain, Bloody stools, Nausea, Vomiting Genitourinary: DENIES: Hematuria, Dysuria Musculoskeletal: DENIES: Joint pain Integumentary: DENIES: Abnormal pigmentation Hematologic/lymphatic: DENIES: Bruising Neurologic: DENIES: Headache Psychiatric: DENIES: Anxiety Except as stated in HPI: all other systems reviewed are Neg Past Family Social History Past Medical History Atrial fibrillation, AAA, anxiety, CAD, hypercholesterolemia, CHF, COPD, CKD, DM with neuropathy and retinopathy, kidney stones (rt side), pancreatitis, renal failure, sleep apnea, multiple colonic polyps- adenomatous/tubulovillous colon polyps, duodenal AVMs, chronic pancreatitis, gastritis/duodenitis, chronic diarrhea, iron deficiency anemia on iron supplement. Past Surgical History AAA Repair, Colonoscopy, EGD, cardiac cath with stents x2, umbilical hernia repair with mesh, cyst removal from throat, tonsillectomy Reported Medications Reported Meds & Active Scripts Active Pantoprazole (Pantoprazole Sodium) 40 Mg Tab 40 Mg PO DAILY Ferosul (Ferrous Sulfate) 325 Mg Tablet 325 Mg PO DAILY Vitamin D3 (Cholecalciferol) 5,000 Unit Cap 5,000 Units PO DAILY Oyster Shell 250 mg + Vit D Tb (Calcium/Vitamin D) 250 Mg Calcium (625 Mg)-125 Unit Tablet 500 Mg PO Q12HR Rocaltrol (Calcitriol) 0.25 Mcg Cap 0.5 Mcg PO DAILY Coreg (Carvedilol) 3.125 Mg Tab 3.125 Mg PO BID Reported Losartan (Losartan Potassium) 25 Mg Tab 25 Mg PO DAILY Hydralazine HCl 25 Mg Tablet 10 Mg PO TID Warfarin 5 Mg Tab 5 Mg PO Sun start if repeat labs 02/02 stable and ok by PCP Warfarin 2.5 Mg Tab 2.5 Mg PO DAILY start if repeat labs 02/02 stable and ok by PCP Pravastatin 40 Mg Tab 40 Mg PO DAILY Allergies: Coded Allergies: No Known Allergies (Verified Allergy, Unknown, 02/28/17) Active Ordered Medications Current Medications Medications (Trade) Dose Ordered Sig/Ana Route Start Time Stop Time Status Last Admin (NS Flush) 2 ml UNSCH PRN IV FLUSH 02/28/17 10:00 03/01/17 02:10 (NS Flush) 2 ml BID IV FLUSH 02/28/17 21:00 03/02/17 08:34 (Zofran Inj) 4 mg Q6H PRN IVP 02/28/17 10:00 (Narcan Inj) 0.4 mg UNSCH PRN IV PUSH 02/28/17 10:00 (Valerie-Colace) 1 tab BID PO 02/28/17 21:00 03/01/17 21:25 (Milk Of Magnesia Liq) 30 ml Q12H PRN PO 02/28/17 10:00 (Senokot) 17.2 mg Q12H PRN PO 02/28/17 10:00 (Dulcolax Supp) 10 mg DAILY PRN RECTAL 02/28/17 10:00 (Lactulose Liq) 30 ml DAILY PRN PO 02/28/17 10:00 (D50w (Vial) Inj) 50 ml UNSCH PRN IV PUSH 02/28/17 12:15 (Glucagon Inj) 1 mg UNSCH PRN OTHER 02/28/17 12:15 (NovoLOG SUPPLEMENTAL SCALE) 1 ACHS SLIDING SCALE SQ 02/28/17 17:00 03/01/17 21:34 (Protonix Inj) 40 mg DAILY IV PUSH 02/28/17 12:15 03/02/17 08:33 (Rocaltrol) 0.5 mcg DAILY PO 03/01/17 09:00 03/02/17 08:33 (Oscal-D 250-125) 500 mg Q12HR PO 02/28/17 21:00 03/02/17 08:33 (Vitamin D3) 5,000 units DAILY PO 03/01/17 09:00 03/02/17 08:33 (Ferrous Sulfate) 325 mg DAILY PO 03/01/17 09:00 03/02/17 08:33 (Apresoline) 10 mg TID PO 02/28/17 13:00 03/02/17 14:30 (Cozaar) 25 mg DAILY PO 03/01/17 09:00 03/02/17 08:33 (Pravachol) 40 mg DAILY PO 03/01/17 09:00 03/02/17 08:33 (Tylenol) 500 mg Q6H PRN PO 03/01/17 21:45 (Coreg) 6.25 mg Q12HR PO 03/02/17 21:00 (Roxicodone) 5 mg Q4H PRN PO 03/02/17 12:00 Family History No family h/o renal cancer Mother from an [place] at 60yo. no relationship with father, brothers, sisters. Social History Smokes 1 and 1/2 PPD x 60 years Former occasional etoh use, last EtOH use one beer a month ago Occasional marijuana use. Physical Exam Vital Signs Date Time Temp Pulse Resp B/P (MAP) Pulse Ox O2 Delivery O2 Flow Rate FiO2 03/02/17 16:00 98.0 60 18 149/72 (97) 99 03/02/17 12:00 97.6 69 18 148/67 (94) 94 03/02/17 08:00 98.1 75 18 129/67 (87) 96 03/02/17 04:00 97.1 64 18 133/66 (88) 95 03/02/17 00:00 97.6 68 20 149/65 (93) 96 03/01/17 20:00 57 03/01/17 20:00 97.5 65 16 143/70 (94) 96 Physical Exam GENERAL: This is a well-nourished, well-developed patient, in no apparent distress. SKIN: No rashes, ecchymoses or lesions. Cool and dry. HEAD: Atraumatic. Normocephalic. No temporal or scalp tenderness. EYES: Extraocular motions intact. No scleral icterus. No injection or drainage. ENT: Nose without bleeding, purulent drainage, Airway patent. NECK: Trachea midline. CARDIOVASCULAR: Normal pulse RESPIRATORY: nonlabored, equal chest rise GASTROINTESTINAL: Abdomen soft, non-tender, nondistended. : White in place, clear yellow urine MUSCULOSKELETAL: Extremities without clubbing, cyanosis, or edema. NEUROLOGICAL: Awake and alert. Motor and sensory grossly within normal limits. Normal speech. Laboratory Tests Test 03/02/17 01:35 03/02/17 07:54 Hemoglobin 9.3 9.7 Hematocrit 27.3 29.1 White Blood Count 10.7 Red Blood Count 3.35 Mean Corpuscular Volume 86.8 Mean Corpuscular Hemoglobin 29.0 Mean Corpuscular Hemoglobin Concent 33.4 Red Cell Distribution Width 16.5 Platelet Count 169 Mean Platelet Volume 9.4 Result Diagram: 03/02/17 0754 03/01/17 1431 Personally reviewed images: Yes Imaging Last Impressions Abdomen/Pelvis CT 03/01/17 0000 Signed Impressions: Service Date/Time: February 14:01 - CONCLUSION: 1. Interval increase in the size of the right perirenal hematoma, now measuring 8.5 cm. 2. Other findings are stable compared to prior CT. Blaze Marshall MD Assessment and Plan Problem List: (1) Renal hemorrhage, right ICD Code: N28.89 - Other specified disorders of kidney and ureter (2) ASUNCION (acute kidney injury) ICD Code: N17.9 - Acute kidney failure, unspecified Status: Acute (3) Anemia ICD Code: D64.9 - Anemia, unspecified Status: Acute Assessment and Plan -Ct images reviewed, no obvious mass or lesion on the right kidney. Multiple cysts on the left kidney -Recommend continued conservative treatment with Hgb checks -Do not recommend surgical intervention as this would carry high morbidity with likely loss of the right kidney -If his Hgb does not improve and there is concern for worsening of this right renal hematoma, would recommend IR for potential embolization -Will follow Yosef Schroeder MD Mar 02, 2017 17:58
[2017-03-02] MEDS: CARVEDILOL 6.25 MG TAB PO SCH (21:14)
[2017-03-03] VITALS: BP 146/71; PULSE 62; RESP 20; TEMP 97.8; O2SAT 98
[2017-03-03 04:00] VITALS: BP 135/65; PULSE 60; RESP 20; TEMP 97.7; O2SAT 97
[2017-03-03 08:00] VITALS: BP 140/68; PULSE 65; RESP 20; TEMP 98.2; O2SAT 96
[2017-03-03] MEDS: INSULIN ASPART SUPPLEMENTAL SCALE SQ SCH ×4 (08:00→21:00)
[2017-03-03 08:24] LABS: HEMATOCRIT 28.9 % (39.0-51.0); MEAN CELL VOLUME 88.8 FL (80.0-100.0); MEAN CORPUSCULAR HEMOGLOBIN 29.6 PG (27.0-34.0); MEAN CORPUSCULAR HGB CONC 33.4 % (32.0-36.0); PLATELET COUNT 154 TH/MM3 (150-450); RED BLOOD COUNT 3.26 MIL/MM3 (4.50-5.90); RED CELL DISTRIBUTION WIDTH 16.9 % (11.6-17.2); REVIEW FLAG FINAL; WHITE BLOOD COUNT 10.8 TH/MM3 (4.0-11.0)
[2017-03-03] MEDS: DOCUSATE SODIUM 50 MG/SENNA 8.6 MG TAB PO SCH ×2 (09:00→21:00)
[2017-03-03] MEDS: hydrALAZINE HCL 10 MG TAB PO SCH ×3 (09:05→17:10)
[2017-03-03] MEDS: CHOLECALCIFEROL (VIT D3) 5000 UNIT CAP PO SCH (09:05)
[2017-03-03] MEDS: LOSARTAN 25 MG TAB PO SCH (09:06)
[2017-03-03] MEDS: CALCIUM/VITAMIN D 250 MG/125 U TAB PO SCH ×2 (09:06→21:20)
[2017-03-03] MEDS: CALCITRIOL 0.25 MCG CAP PO SCH (09:06)
[2017-03-03] MEDS: FERROUS SULFATE 325 MG (65 MG ELEMENTAL IRON) TAB PO SCH (09:06)
[2017-03-03] MEDS: PRAVASTATIN SOD 40 MG TAB PO SCH (09:06)
[2017-03-03] MEDS: PANTOPRAZOLE SODIUM 40 MG VIAL IV PUSH SCH (09:06)
[2017-03-03] MEDS: SODIUM CHLORIDE 0.9% FLUSH 10 ML FLUSH IV FLUSH SCH ×2 (09:06→21:21)
[2017-03-03] MEDS: CARVEDILOL 6.25 MG TAB PO SCH ×2 (09:06→21:20)
[2017-03-03 12:00] VITALS: BP 140/62; PULSE 60; RESP 20; TEMP 98.3; O2SAT 96
--- NOTE | 2017-03-03 15:15 | HHI.PR ---
Subjective Remarks The patient was resting comfortably. He said that he still does not want to resume Coumadin because of the bleeding. He has been having bowel movements. Discussed with nursing. Objective Vitals Vital Signs Date Time Temp Pulse Resp B/P (MAP) Pulse Ox O2 Delivery O2 Flow Rate FiO2 03/03/17 12:00 98.3 60 20 140/62 (88) 96 03/03/17 08:00 98.2 65 20 140/68 (92) 96 03/03/17 07:00 Room Air 03/03/17 04:00 97.7 60 20 135/65 (88) 97 03/03/17 03:58 Room Air 03/03/17 00:00 Room Air 03/03/17 00:00 97.8 62 20 146/71 (96) 98 03/02/17 20:00 Room Air 03/02/17 20:00 98.0 76 20 139/65 (89) 96 03/02/17 20:00 72 03/02/17 18:00 146/67 (93) 03/02/17 16:00 98.0 60 18 149/72 (97) 99 I/O 03/02/17 03/02/17 03/02/17 03/03/17 03/03/17 03/03/17 07:00 15:00 23:00 07:00 15:00 23:00 Intake Total 240 ml 720 ml 220 ml 720 ml Output Total 900 ml 1000 ml 750 ml 400 ml Balance -660 ml -280 ml -530 ml 320 ml Intake Oral 240 ml 720 ml 220 ml 720 ml Output Urine Total 900 ml 1000 ml 750 ml 400 ml # Bowel Movements 1 1 2 Result Diagram: 03/03/17 0705 03/01/17 1431 Imaging Last Impressions Abdomen/Pelvis CT 03/01/17 0000 Signed Impressions: Service Date/Time: February 14:01 - CONCLUSION: 1. Interval increase in the size of the right perirenal hematoma, now measuring 8.5 cm. 2. Other findings are stable compared to prior CT. Blaze Marshall MD Objective Remarks GENERAL: This is a well-nourished, well-developed patient, in no apparent distress. SKIN: No rashes, ecchymoses or lesions. Cool and dry. HEAD: Atraumatic. Normocephalic. No temporal or scalp tenderness. EYES: Pupils equal round and reactive. Extraocular motions intact. No scleral icterus. No injection or drainage. ENT: Nose without bleeding, purulent drainage or septal hematoma. Throat without erythema, tonsillar hypertrophy or exudate. Uvula midline. Airway patent. NECK: Trachea midline. No JVD or lymphadenopathy. Supple, nontender, no meningeal signs. CARDIOVASCULAR: Irregularly irregular without murmurs, gallops, or rubs. RESPIRATORY: No wheezes, rales. GASTROINTESTINAL: Abdomen soft, non-tender, nondistended. No hepato-splenomegaly , or palpable masses. No guarding. MUSCULOSKELETAL: Extremities without clubbing, cyanosis, or edema. No joint tenderness, effusion, or edema noted. NEUROLOGICAL: Awake and alert. Cranial nerves II through XII intact. Motor and sensory grossly within normal limits. Five out of 5 muscle strength in all muscle groups. Normal speech. PSYCH: Mood and affect appropriate. Medications and IVs Current Medications Medications (Trade) Dose Ordered Sig/Ana Route Start Time Stop Time Status Last Admin (NS Flush) 2 ml UNSCH PRN IV FLUSH 02/28/17 10:00 03/01/17 02:10 (NS Flush) 2 ml BID IV FLUSH 02/28/17 21:00 03/03/17 09:06 (Zofran Inj) 4 mg Q6H PRN IVP 02/28/17 10:00 (Narcan Inj) 0.4 mg UNSCH PRN IV PUSH 02/28/17 10:00 (Valerie-Colace) 1 tab BID PO 02/28/17 21:00 03/02/17 21:14 (Milk Of Magnesia Liq) 30 ml Q12H PRN PO 02/28/17 10:00 (Senokot) 17.2 mg Q12H PRN PO 02/28/17 10:00 (Dulcolax Supp) 10 mg DAILY PRN RECTAL 02/28/17 10:00 (Lactulose Liq) 30 ml DAILY PRN PO 02/28/17 10:00 (D50w (Vial) Inj) 50 ml UNSCH PRN IV PUSH 02/28/17 12:15 (Glucagon Inj) 1 mg UNSCH PRN OTHER 02/28/17 12:15 (NovoLOG SUPPLEMENTAL SCALE) 1 ACHS SLIDING SCALE SQ 02/28/17 17:00 03/03/17 11:51 (Protonix Inj) 40 mg DAILY IV PUSH 02/28/17 12:15 03/03/17 09:06 (Rocaltrol) 0.5 mcg DAILY PO 03/01/17 09:00 03/03/17 09:06 (Oscal-D 250-125) 500 mg Q12HR PO 02/28/17 21:00 03/03/17 09:06 (Vitamin D3) 5,000 units DAILY PO 03/01/17 09:00 03/03/17 09:05 (Ferrous Sulfate) 325 mg DAILY PO 03/01/17 09:00 03/03/17 09:06 (Apresoline) 10 mg TID PO 02/28/17 13:00 03/03/17 13:45 (Cozaar) 25 mg DAILY PO 03/01/17 09:00 03/03/17 09:06 (Pravachol) 40 mg DAILY PO 03/01/17 09:00 03/03/17 09:06 (Tylenol) 500 mg Q6H PRN PO 03/01/17 21:45 (Coreg) 6.25 mg Q12HR PO 03/02/17 21:00 03/03/17 09:06 (Roxicodone) 5 mg Q4H PRN PO 03/02/17 12:00 03/03/17 09:47 A/P Assessment and Plan Anemia Possibly s/t GI bleed vs renal hemorrhage. From the last hospitalization hemoglobin is relatively stable. In January hemoglobin was 8.4 and now is 7.7. Patient does not have any gross bleeding. He does have a positive Hemoccult done in the ED. Patient is also on chronic anticoagulation with Coumadin. S/p 4 units red blood cells. Hemoglobin currently stable. GI and hematology consults appreciated. - Will hold Coumadin for now. - Protonix. - follow CBC and transfuse as needed. - GI to perform colonoscopy as scheduled in the outpt setting. Right kidney hemorrhage Noted on last admission. CT abdomen showed spontaneous hemorrhage involving the right mid pole kidney measuring 6.5 cm in size. Repeat CT showed increasing size to 8.5 cm. Appreciate urology consult. - continue to hold Coumadin. Defer to urology and hematology in regards to resuming anticoagulation. The pt does not want to be anticoagulated at this time. - follow CBC, if hgb decreases may consider IR embolization. Bladder Stone CT abdomen showed bladder stone measuring 1.61cm on last admit. - White in place. - Follow up with urology. Chronic Kidney Disease stage 3 Patient is baseline. - Continue to monitor creatinine. - Avoid nephrotoxins. - Strict ins and outs. Atrial fibrillation/ V tach On chronic anticoagulation with Coumadin. INR is 1.2. The patient has been having problems with bleeding. The pt had a run of V tach vs A fib with aberrancy 03/02. - Will hold Coumadin and follow up with hematology. - telemetry. - increased Coreg to 6.25 mg BID. Diabetes Mellitus With neuropathy and retinopathy. - insulin sliding scale. Tobacco Use - Patient counseled on cessation. DVT prophylaxis- chemical prophylaxis contraindicated at this time secondary to active bleeding Discharge Planning Awaiting urology and hematology clearance. Anticipate d/c home in 1-2 days Bertin Hirsch DO Mar 03, 2017 15:15
[2017-03-03 15:58] VITALS: BP 138/62; PULSE 63; RESP 20; TEMP 97.8; O2SAT 97
[2017-03-03 20:00] VITALS: BP 113/58; PULSE 68; PULSE 69; RESP 22; TEMP 97.8; O2SAT 98
[2017-03-04] VITALS: BP 127/60; PULSE 66; RESP 20; TEMP 98.2; O2SAT 94
[2017-03-04 04:00] VITALS: BP 120/64; PULSE 66; RESP 19; TEMP 98.2; O2SAT 95
[2017-03-04 07:32] LABS: HEMATOCRIT 29.5 % (39.0-51.0); MEAN CELL VOLUME 89.3 FL (80.0-100.0); MEAN CORPUSCULAR HEMOGLOBIN 29.9 PG (27.0-34.0); MEAN CORPUSCULAR HGB CONC 33.4 % (32.0-36.0); PLATELET COUNT 147 TH/MM3 (150-450); RED CELL DISTRIBUTION WIDTH 16.9 % (11.6-17.2); REVIEW FLAG FINAL; WHITE BLOOD COUNT 11.3 TH/MM3 (4.0-11.0)
[2017-03-04] MEDS: INSULIN ASPART SUPPLEMENTAL SCALE SQ SCH ×5 (07:58→22:08)
[2017-03-04 08:00] VITALS: BP 142/66; PULSE 66; PULSE 80; RESP 20; TEMP 98.2; O2SAT 95
[2017-03-04] MEDS: PANTOPRAZOLE SODIUM 40 MG VIAL IV PUSH SCH (08:03)
[2017-03-04] MEDS: SODIUM CHLORIDE 0.9% FLUSH 10 ML FLUSH IV FLUSH SCH ×2 (08:03→20:28)
[2017-03-04] MEDS: CARVEDILOL 6.25 MG TAB PO SCH ×2 (08:04→20:28)
[2017-03-04] MEDS: PRAVASTATIN SOD 40 MG TAB PO SCH (08:04)
[2017-03-04] MEDS: hydrALAZINE HCL 10 MG TAB PO SCH ×3 (08:04→17:01)
[2017-03-04] MEDS: CALCITRIOL 0.25 MCG CAP PO SCH (08:04)
[2017-03-04] MEDS: FERROUS SULFATE 325 MG (65 MG ELEMENTAL IRON) TAB PO SCH (08:04)
[2017-03-04] MEDS: DOCUSATE SODIUM 50 MG/SENNA 8.6 MG TAB PO SCH ×3 (08:04→20:29)
[2017-03-04] MEDS: CHOLECALCIFEROL (VIT D3) 5000 UNIT CAP PO SCH (08:04)
[2017-03-04] MEDS: CALCIUM/VITAMIN D 250 MG/125 U TAB PO SCH ×2 (08:04→20:28)
[2017-03-04] MEDS: LOSARTAN 25 MG TAB PO SCH (08:04)
[2017-03-04 12:00] VITALS: BP 128/63; PULSE 63; RESP 20; TEMP 97.4; O2SAT 99
--- NOTE | 2017-03-04 12:11 | HHI.PR ---
Subjective Remarks The patient would like to be discharged soon. He was eating lunch. He said he felt weak. He has chronic pain on the right lower back. He had concerns about going back on anticoagulation. Discussed with nursing. Objective Vitals Vital Signs Date Time Temp Pulse Resp B/P (MAP) Pulse Ox O2 Delivery O2 Flow Rate FiO2 03/04/17 08:00 98.2 66 20 142/66 (91) 95 03/04/17 04:00 98.2 66 19 120/64 (82) 95 03/04/17 00:00 98.2 66 20 127/60 (82) 94 03/03/17 20:00 Room Air 03/03/17 20:00 97.8 68 22 113/58 (76) 98 03/03/17 20:00 69 03/03/17 15:58 97.8 63 20 138/62 (87) 97 I/O 03/03/17 03/03/17 03/03/17 03/04/17 03/04/17 03/04/17 07:00 15:00 23:00 07:00 15:00 23:00 Intake Total 220 ml 720 ml 280 ml Output Total 750 ml 400 ml 400 ml 650 ml Balance -530 ml 320 ml -400 ml -370 ml Intake Oral 220 ml 720 ml 280 ml Output Urine Total 750 ml 400 ml 400 ml 650 ml # Bowel Movements 2 2 1 Result Diagram: 03/04/17 0645 03/01/17 1431 Imaging Last Impressions Abdomen/Pelvis CT 03/01/17 0000 Signed Impressions: Service Date/Time: February 14:01 - CONCLUSION: 1. Interval increase in the size of the right perirenal hematoma, now measuring 8.5 cm. 2. Other findings are stable compared to prior CT. Blaze Marshall MD Objective Remarks GENERAL: This is a well-nourished, well-developed patient, in no apparent distress. SKIN: No rashes, ecchymoses or lesions. Cool and dry. HEAD: Atraumatic. Normocephalic. No temporal or scalp tenderness. EYES: Pupils equal round and reactive. Extraocular motions intact. No scleral icterus. No injection or drainage. ENT: Nose without bleeding, purulent drainage or septal hematoma. Throat without erythema, tonsillar hypertrophy or exudate. Uvula midline. Airway patent. NECK: Trachea midline. No JVD or lymphadenopathy. Supple, nontender, no meningeal signs. CARDIOVASCULAR: Irregularly irregular without murmurs, gallops, or rubs. RESPIRATORY: No wheezes, rales. GASTROINTESTINAL: Abdomen soft, non-tender, nondistended. No hepato-splenomegaly , or palpable masses. No guarding. MUSCULOSKELETAL: Extremities without clubbing, cyanosis, or edema. No joint tenderness, effusion, or edema noted. NEUROLOGICAL: Awake and alert. Cranial nerves II through XII intact. Motor and sensory grossly within normal limits. Five out of 5 muscle strength in all muscle groups. Normal speech. PSYCH: Mood and affect appropriate. Medications and IVs Current Medications Medications (Trade) Dose Ordered Sig/Ana Route Start Time Stop Time Status Last Admin (NS Flush) 2 ml UNSCH PRN IV FLUSH 02/28/17 10:00 03/01/17 02:10 (NS Flush) 2 ml BID IV FLUSH 02/28/17 21:00 03/04/17 08:03 (Zofran Inj) 4 mg Q6H PRN IVP 02/28/17 10:00 (Narcan Inj) 0.4 mg UNSCH PRN IV PUSH 02/28/17 10:00 (Valerie-Colace) 1 tab BID PO 02/28/17 21:00 03/02/17 21:14 (Milk Of Magnesia Liq) 30 ml Q12H PRN PO 02/28/17 10:00 (Senokot) 17.2 mg Q12H PRN PO 02/28/17 10:00 (Dulcolax Supp) 10 mg DAILY PRN RECTAL 02/28/17 10:00 (Lactulose Liq) 30 ml DAILY PRN PO 02/28/17 10:00 (D50w (Vial) Inj) 50 ml UNSCH PRN IV PUSH 02/28/17 12:15 (Glucagon Inj) 1 mg UNSCH PRN OTHER 02/28/17 12:15 (NovoLOG SUPPLEMENTAL SCALE) 1 ACHS SLIDING SCALE SQ 02/28/17 17:00 03/03/17 21:00 (Protonix Inj) 40 mg DAILY IV PUSH 02/28/17 12:15 03/04/17 08:03 (Rocaltrol) 0.5 mcg DAILY PO 03/01/17 09:00 03/04/17 08:04 (Oscal-D 250-125) 500 mg Q12HR PO 02/28/17 21:00 03/04/17 08:04 (Vitamin D3) 5,000 units DAILY PO 03/01/17 09:00 03/04/17 08:04 (Ferrous Sulfate) 325 mg DAILY PO 03/01/17 09:00 03/04/17 08:04 (Apresoline) 10 mg TID PO 02/28/17 13:00 03/04/17 08:04 (Cozaar) 25 mg DAILY PO 03/01/17 09:00 03/04/17 08:04 (Pravachol) 40 mg DAILY PO 03/01/17 09:00 03/04/17 08:04 (Tylenol) 500 mg Q6H PRN PO 03/01/17 21:45 (Coreg) 6.25 mg Q12HR PO 03/02/17 21:00 03/04/17 08:04 (Roxicodone) 5 mg Q4H PRN PO 03/02/17 12:00 03/04/17 08:04 A/P Assessment and Plan Anemia Possibly s/t GI bleed vs renal hemorrhage. From the last hospitalization hemoglobin is relatively stable. In January hemoglobin was 8.4 and now is 7.7. Patient does not have any gross bleeding. He does have a positive Hemoccult done in the ED. Patient is also on chronic anticoagulation with Coumadin. S/p 4 units red blood cells. Hemoglobin currently stable. GI and hematology consults appreciated. - Will hold Coumadin for now. Possibly resume at lower dose on discharge. - Protonix. - follow CBC and transfuse as needed. Stable. - GI to perform colonoscopy as scheduled in the outpt setting. Right kidney hemorrhage Noted on last admission. CT abdomen showed spontaneous hemorrhage involving the right mid pole kidney measuring 6.5 cm in size. Repeat CT showed increasing size to 8.5 cm. Appreciate urology consult. - continue to hold Coumadin. Defer to urology and hematology in regards to resuming anticoagulation. The pt is not sure he wants to resume anticoagulation. - follow CBC, if hgb decreases may consider IR embolization. Bladder Stone CT abdomen showed bladder stone measuring 1.61cm on last admit. - White in place. - Follow up with urology. Chronic Kidney Disease stage 3 Patient is baseline. - Continue to monitor creatinine. - Avoid nephrotoxins. - Strict ins and outs. Atrial fibrillation/ V tach On chronic anticoagulation with Coumadin. INR is 1.2. The patient has been having problems with bleeding. The pt had a run of V tach vs A fib with aberrancy 03/02. - Will hold Coumadin and follow up with hematology. - telemetry. - increased Coreg to 6.25 mg BID. Diabetes Mellitus With neuropathy and retinopathy. - insulin sliding scale. Tobacco Use - Patient counseled on cessation. Leukocytosis The patient has a chronic White. He also reports cold-like symptoms chronically. - Check a chest x-ray and UA. - Follow CBC. DVT prophylaxis- chemical prophylaxis contraindicated at this time secondary to active bleeding Discharge Planning Awaiting urology and hematology clearance. Anticipate d/c home in 1-2 days Bertin Hirsch DO Mar 04, 2017 12:11
--- NOTE | 2017-03-04 15:15 | RADRPT ---
EXAM DATE/TIME: 03/04/2017 14:51 [facility] COMPARISON: CHEST SINGLE AP, November 19, 2016, 22:06. INDICATIONS : Shortness of breath and cough. MEDICAL HISTORY : Atrial fibrillation. Pneumonia. SURGICAL HISTORY : Descending aorta graft stent. ENCOUNTER: Initial ACUITY: 2 days PAIN SCORE: 0/10 LOCATION: Bilateral chest FINDINGS: Mild motion degradation. There are patchy infiltrates in the infrahilar region bilaterally. The hea rt is normal size. Stent device is in the descending thoracic aorta with tortuosity. CONCLUSION: Mild patchy infiltrates in the infrahilar lungs bilaterally. Blaze Marshall MD on March 04, 2017 at 15:12 Board Certified Radiologist. This report was verified electronically.
[2017-03-04 16:00] VITALS: BP 121/59; PULSE 55; RESP 20; TEMP 97.8; O2SAT 98
[2017-03-04 20:00] VITALS: BP 124/64; PULSE 61; PULSE 63; RESP 20; TEMP 98; O2SAT 97
[2017-03-05] VITALS: BP 105/53; PULSE 61; RESP 18; TEMP 98.2; O2SAT 98
[2017-03-05 04:00] VITALS: BP 141/63; PULSE 62; RESP 22; TEMP 97.5; O2SAT 94
[2017-03-05 05:00] LABS: BACTERIA, URINE MANY /hpf; BLOOD, URINE SMALL (NEG); GLUCOSE,URINE NEG (NEG); KETONE, URINE NEG (NEG); MUCUS URINE FEW /lpf (OCC); NITRITE,URINE POS (NEG); PH, URINE 5.5 (5.0-8.5); RENAL EPITHELIAL CELLS 1 /hpf; URINE COLOR YELLOW (YELLW/STRAW)
[2017-03-05 05:01] LABS: COMMENT (UR) CATH-CULTURE IND; CULTURE IF INDICATED CATH CULTURE IND
[2017-03-05 08:00] VITALS: BP 133/60; PULSE 57; PULSE 68; RESP 20; TEMP 97.8; O2SAT 93
[2017-03-05 08:02] LABS: HEMATOCRIT 30.8 % (39.0-51.0); MEAN CELL VOLUME 89.3 FL (80.0-100.0); MEAN CORPUSCULAR HEMOGLOBIN 29.5 PG (27.0-34.0); PLATELET COUNT 152 TH/MM3 (150-450); RED BLOOD COUNT 3.45 MIL/MM3 (4.50-5.90); RED CELL DISTRIBUTION WIDTH 16.5 % (11.6-17.2); REVIEW FLAG FINAL; WHITE BLOOD COUNT 13.1 TH/MM3 (4.0-11.0)
[2017-03-05 08:28] LABS: BICARBONATE 14.8 MEQ/L (21.0-32.0); MAGNESIUM 1.5 MG/DL (1.5-2.5); POTASSIUM 4.1 MEQ/L (3.5-5.1)
[2017-03-05] MEDS: CHOLECALCIFEROL (VIT D3) 5000 UNIT CAP PO SCH (08:55)
[2017-03-05] MEDS: PANTOPRAZOLE SODIUM 40 MG VIAL IV PUSH SCH (08:56)
[2017-03-05] MEDS: LOSARTAN 25 MG TAB PO SCH (08:56)
[2017-03-05] MEDS: hydrALAZINE HCL 10 MG TAB PO SCH ×3 (08:56→17:35)
[2017-03-05] MEDS: CARVEDILOL 6.25 MG TAB PO SCH ×2 (08:56→21:17)
[2017-03-05] MEDS: PRAVASTATIN SOD 40 MG TAB PO SCH (08:56)
[2017-03-05] MEDS: DOCUSATE SODIUM 50 MG/SENNA 8.6 MG TAB PO SCH ×2 (08:56→21:06)
[2017-03-05] MEDS: FERROUS SULFATE 325 MG (65 MG ELEMENTAL IRON) TAB PO SCH (08:56)
[2017-03-05] MEDS: CALCIUM/VITAMIN D 250 MG/125 U TAB PO SCH ×2 (08:56→21:06)
[2017-03-05] MEDS: CALCITRIOL 0.25 MCG CAP PO SCH (08:56)
[2017-03-05] MEDS: SODIUM CHLORIDE 0.9% FLUSH 10 ML FLUSH IV FLUSH SCH ×2 (08:57→21:00)
[2017-03-05 09:14] LABS: CALCIUM-PROTEIN CORRECTED 8.3 MG/DL (8.5-10.1)
[2017-03-05] MEDS ORDERED: Vancomycin Consult Pharmacy 1 EA OTHER SCH (09:30)
[2017-03-05] MEDS ORDERED: VANCOMYCIN INJ 1,000 MG in SODIUM CHLOR 0.9% 250 ML INJ 250 ML IV ONE (09:30)
[2017-03-05] MEDS: SODIUM CHLOR 0.45% 1000 ML INJ 1,000 ML IV SCH ×2 (10:00→21:04)
[2017-03-05] MEDS: PIPERACIL-TAZO 2.25 GM PREMIX 50 ML IV SCH ×3 (10:50→21:05)
--- NOTE | 2017-03-05 10:58 | HHI.PR ---
Subjective Remarks The patient was resting in bed comfortably. He had no acute complaints. He said he has had a chronic cough and was not surprised to learn that he has pneumonia. Objective Vitals Vital Signs Date Time Temp Pulse Resp B/P (MAP) Pulse Ox O2 Delivery O2 Flow Rate FiO2 03/05/17 10:16 Room Air 03/05/17 04:00 97.5 62 22 141/63 (89) 94 03/05/17 00:00 98.2 61 18 105/53 (70) 98 03/05/17 00:00 Room Air 03/04/17 20:15 Room Air 03/04/17 20:00 61 03/04/17 20:00 98.0 63 20 124/64 (84) 97 03/04/17 16:00 97.8 55 20 121/59 (79) 98 03/04/17 12:00 97.4 63 20 128/63 (84) 99 I/O 03/04/17 03/04/17 03/04/17 03/05/17 03/05/17 03/05/17 07:00 15:00 23:00 07:00 15:00 23:00 Intake Total 280 ml 480 ml 540 ml Output Total 650 ml 450 ml 750 ml Balance -370 ml 30 ml -210 ml Intake Oral 280 ml 480 ml 540 ml Output Urine Total 650 ml 450 ml 750 ml # Voids 4 # Bowel Movements 2 1 1 2 Result Diagram: 03/05/17 0718 03/05/17 0718 Imaging Last Impressions Chest X-Ray 03/04/17 0000 Signed Impressions: Service Date/Time: Saturday, March 04, 2017 14:51 - CONCLUSION: Mild patchy infiltrates in the infrahilar lungs bilaterally. Blaze Marshall MD Abdomen/Pelvis CT 03/01/17 0000 Signed Impressions: Service Date/Time: February 14:01 - CONCLUSION: 1. Interval increase in the size of the right perirenal hematoma, now measuring 8.5 cm. 2. Other findings are stable compared to prior CT. Blaze Marshall MD Objective Remarks GENERAL: This is a well-nourished, well-developed patient, in no apparent distress. SKIN: No rashes, ecchymoses or lesions. Cool and dry. HEAD: Atraumatic. Normocephalic. No temporal or scalp tenderness. EYES: Pupils equal round and reactive. Extraocular motions intact. No scleral icterus. No injection or drainage. ENT: Nose without bleeding, purulent drainage or septal hematoma. Throat without erythema, tonsillar hypertrophy or exudate. Uvula midline. Airway patent. NECK: Trachea midline. No JVD or lymphadenopathy. Supple, nontender, no meningeal signs. CARDIOVASCULAR: Irregularly irregular without murmurs, gallops, or rubs. RESPIRATORY: No wheezes, rales. GASTROINTESTINAL: Abdomen soft, non-tender, nondistended. No hepato-splenomegaly , or palpable masses. No guarding. MUSCULOSKELETAL: Extremities without clubbing, cyanosis, or edema. No joint tenderness, effusion, or edema noted. NEUROLOGICAL: Awake and alert. Cranial nerves II through XII intact. Motor and sensory grossly within normal limits. Five out of 5 muscle strength in all muscle groups. Normal speech. PSYCH: Mood and affect appropriate. Medications and IVs Current Medications Medications (Trade) Dose Ordered Sig/Ana Route Start Time Stop Time Status Last Admin (NS Flush) 2 ml UNSCH PRN IV FLUSH 02/28/17 10:00 03/01/17 02:10 (NS Flush) 2 ml BID IV FLUSH 02/28/17 21:00 03/05/17 08:57 (Zofran Inj) 4 mg Q6H PRN IVP 02/28/17 10:00 (Narcan Inj) 0.4 mg UNSCH PRN IV PUSH 02/28/17 10:00 (Valerie-Colace) 1 tab BID PO 02/28/17 21:00 03/05/17 08:56 (Milk Of Magnesia Liq) 30 ml Q12H PRN PO 02/28/17 10:00 (Senokot) 17.2 mg Q12H PRN PO 02/28/17 10:00 (Dulcolax Supp) 10 mg DAILY PRN RECTAL 02/28/17 10:00 (Lactulose Liq) 30 ml DAILY PRN PO 02/28/17 10:00 (D50w (Vial) Inj) 50 ml UNSCH PRN IV PUSH 02/28/17 12:15 (Glucagon Inj) 1 mg UNSCH PRN OTHER 02/28/17 12:15 (NovoLOG SUPPLEMENTAL SCALE) 1 ACHS SLIDING SCALE SQ 02/28/17 17:00 03/04/17 22:08 (Protonix Inj) 40 mg DAILY IV PUSH 02/28/17 12:15 03/05/17 08:56 (Rocaltrol) 0.5 mcg DAILY PO 03/01/17 09:00 03/05/17 08:56 (Oscal-D 250-125) 500 mg Q12HR PO 02/28/17 21:00 03/05/17 08:56 (Vitamin D3) 5,000 units DAILY PO 03/01/17 09:00 03/05/17 08:55 (Ferrous Sulfate) 325 mg DAILY PO 03/01/17 09:00 03/05/17 08:56 (Apresoline) 10 mg TID PO 02/28/17 13:00 03/05/17 08:56 (Cozaar) 25 mg DAILY PO 03/01/17 09:00 03/05/17 08:56 (Pravachol) 40 mg DAILY PO 03/01/17 09:00 03/05/17 08:56 (Tylenol) 500 mg Q6H PRN PO 03/01/17 21:45 (Coreg) 6.25 mg Q12HR PO 03/02/17 21:00 03/05/17 08:56 (Roxicodone) 5 mg Q4H PRN PO 03/02/17 12:00 03/04/17 20:29 Sodium Chloride 1,000 ml @ 100 mls/hr Q10H IV 03/05/17 10:00 03/06/17 05:59 03/05/17 10:00 Pharmacy Profile Note 0 ml @ 0 mls/hr UNSCH OTHER 03/05/17 09:30 Piperacillin Sod/ Tazobactam Sod 50 ml @ 100 mls/hr Q6H IV 03/05/17 10:00 Vancomycin HCl 1250 mg/Sodium Chloride 262.5 ml @ 250 mls/hr ONCE ONCE IV 03/05/17 11:00 03/05/17 12:02 A/P Assessment and Plan Anemia Possibly s/t GI bleed vs renal hemorrhage. From the last hospitalization hemoglobin is relatively stable. In January hemoglobin was 8.4 and now is 7.7. Patient does not have any gross bleeding. He does have a positive Hemoccult done in the ED. Patient is also on chronic anticoagulation with Coumadin. S/p 4 units red blood cells. Hemoglobin currently stable. GI and hematology consults appreciated. - Will hold Coumadin for now. Possibly resume at lower dose on discharge. Follow up with hematology. - Protonix. - follow CBC and transfuse as needed. Stable. - GI to perform colonoscopy as scheduled in the outpt setting. Right kidney hemorrhage Noted on last admission. CT abdomen showed spontaneous hemorrhage involving the right mid pole kidney measuring 6.5 cm in size. Repeat CT showed increasing size to 8.5 cm. Appreciate urology consult. - continue to hold Coumadin. Defer to urology and hematology in regards to resuming anticoagulation. The pt is not sure he wants to resume anticoagulation. - follow CBC, if hgb decreases may consider IR embolization. Stable. HCAP CXR with bilateral mild infiltrates. Recently hospitalized. - start IV vancomycin and Zosyn 03/05. - oxygen and nebs as needed. - sputum culture and gram stain, blood cultures. - incentive spirometry. - PT. Bladder Stone/ UTI CT abdomen showed bladder stone measuring 1.61cm on last admit. UA indicative of infection. - White in place. - Follow up with urology. - antibiotics. - follow urine culture. Chronic Kidney Disease stage 3 Creatinine has been elevated. - Avoid nephrotoxins. - Strict ins and outs. - start IVFs and monitor. Atrial fibrillation/ V tach On chronic anticoagulation with Coumadin. INR is 1.2. The patient has been having problems with bleeding. The pt had a run of V tach vs A fib with aberrancy 03/02. - Will hold Coumadin and follow up with hematology. - telemetry. - increased Coreg to 6.25 mg BID. Diabetes Mellitus With neuropathy and retinopathy. - insulin sliding scale. Tobacco Use - Patient counseled on cessation. DVT prophylaxis- chemical prophylaxis contraindicated at this time secondary to active bleeding Discharge Planning Awaiting urology and hematology clearance, await improvement in PNA/ UTI. Bertin Hirsch DO Mar 05, 2017 10:58
[2017-03-05] MEDS ORDERED: RESP: ALBUTEROL 2.5 MG/IPRATROPIUM 0.5 MG NEB (PRN) NEB (11:00)
[2017-03-05] MEDS: VANCOMYCIN INJ 1,250 MG in SODIUM CHLOR 0.9% 250 ML INJ 250 ML IV ONE ×2 (11:00→11:25)
[2017-03-05 12:00] VITALS: BP 120/56; PULSE 60; RESP 20; TEMP 97.5; O2SAT 95
[2017-03-05] MEDS: INSULIN ASPART SUPPLEMENTAL SCALE SQ SCH ×3 (12:00→21:00)
[2017-03-05 16:00] VITALS: BP 126/63; PULSE 70; RESP 20; TEMP 99.2; O2SAT 95
[2017-03-05 20:00] VITALS: BP 122/59; PULSE 70; RESP 18; TEMP 97.6; O2SAT 94
[2017-03-06] VITALS (10 sets, daily range): BP systolic 101–116; BP diastolic 52–56; PULSE 57–72; RESP 16–20; TEMP 97.7–97.8; O2SAT 94–96
[2017-03-06] MEDS: PIPERACIL-TAZO 2.25 GM PREMIX 50 ML IV SCH ×4 (03:59→22:10)
[2017-03-06 07:24] LABS: HEMATOCRIT 30.8 % (39.0-51.0); MEAN CELL VOLUME 89.7 FL (80.0-100.0); MEAN CORPUSCULAR HEMOGLOBIN 28.9 PG (27.0-34.0); MEAN CORPUSCULAR HGB CONC 32.3 % (32.0-36.0); PLATELET COUNT 158 TH/MM3 (150-450); RED BLOOD COUNT 3.44 MIL/MM3 (4.50-5.90); RED CELL DISTRIBUTION WIDTH 16.4 % (11.6-17.2); REVIEW FLAG FINAL; WHITE BLOOD COUNT 11.2 TH/MM3 (4.0-11.0)
[2017-03-06 07:48] LABS: BICARBONATE 16.1 MEQ/L (21.0-32.0); MAGNESIUM 1.4 MG/DL (1.5-2.5); POTASSIUM 3.8 MEQ/L (3.5-5.1)
[2017-03-06] MEDS: INSULIN ASPART SUPPLEMENTAL SCALE SQ SCH ×4 (08:00→23:11)
[2017-03-06 08:02] LABS: CALCIUM-PROTEIN CORRECTED 8.2 MG/DL (8.5-10.1)
[2017-03-06] MEDS: FERROUS SULFATE 325 MG (65 MG ELEMENTAL IRON) TAB PO SCH (09:19)
[2017-03-06] MEDS: CALCIUM/VITAMIN D 250 MG/125 U TAB PO SCH ×2 (09:20→22:09)
[2017-03-06] MEDS: PRAVASTATIN SOD 40 MG TAB PO SCH (09:20)
[2017-03-06] MEDS: hydrALAZINE HCL 10 MG TAB PO SCH ×3 (09:20→18:04)
[2017-03-06] MEDS: SODIUM CHLORIDE 0.9% FLUSH 10 ML FLUSH IV FLUSH SCH ×2 (09:20→22:10)
[2017-03-06] MEDS: CHOLECALCIFEROL (VIT D3) 5000 UNIT CAP PO SCH (09:20)
[2017-03-06] MEDS: CALCITRIOL 0.25 MCG CAP PO SCH (09:20)
[2017-03-06] MEDS: CARVEDILOL 6.25 MG TAB PO SCH ×2 (09:20→22:10)
[2017-03-06] MEDS: LOSARTAN 25 MG TAB PO SCH (09:20)
[2017-03-06] MEDS: PANTOPRAZOLE SODIUM 40 MG VIAL IV PUSH SCH (09:20)
[2017-03-06] MEDS: DOCUSATE SODIUM 50 MG/SENNA 8.6 MG TAB PO SCH ×2 (09:20→21:00)
[2017-03-06] MEDS ORDERED: VANCOMYCIN 1,000 MG/NS 250 ML IV SCH ×2 (12:00)
[2017-03-06] MEDS ORDERED: CALCIUM CHLORIDE INJ 2 GM in SODIUM CHLORIDE 0.9% INJ 100 ML IV ONE (13:00)
--- NOTE | 2017-03-06 14:34 | RADRPT ---
EXAM DATE/TIME: 03/06/2017 13:01 [facility] COMPARISON: CT ABDOMEN & PELVIS W/O CONTRAST, March 01, 2017, 14:01. INDICATIONS : Increased BUN/Creatinine. MEDICAL HISTORY : Hypercholesterolemia. Hypertension. Gastroesophageal reflux disease. Heart attack. Congestive heart f ailure. Anticoagulant therapy. Atrial fibrillation. Pancreatitis. Left kidney cancer. SURGICAL HISTORY : Tonsillectomy. Abdominal aortic aneurysm repair. Cyst removed from throat. Coronary stent. Cardiac catheterization. Hernia repair. ENCOUNTER: Initial ACUITY: 1 day PAIN SCORE: 0/10 LOCATION: Bilateral flank MEASUREMENTS: RIGHT KIDNEY: 11.8 x 7.0 x 6.1 cm LEFT KIDNEY: 11.3 x 6.1 x 5.6 cm FINDINGS: RIGHT KIDNEY: Redemonstration of heterogeneous posterior perinephric collection consistent with hematoma noted on p rior CT exam. This collection now measures 11.2 x 7.8 x 7.9 cm in comparison to 11.0 x 8.5 x 5.[address] o n prior [address] exam. Redemonstration of multiple simple appearing right renal cysts with the largest in t he upper pole measuring up to 2.1 x 2.6 x 3.4 cm. Renal cortex is normal in thickness and echotexture . No hydronephrosis or stone. LEFT KIDNEY: Redemonstration of multiple simple appearing cysts in the left kidney with the largest in the inferio r pole measuring up to 4.8 x 4.9 x 4.4 cm. Small isodense and hyperdense lesions noted on CT exam are not as well demonstrated on ultrasound. Renal cortex is normal in thickness and echotexture. No hyd ronephrosis or stone. BLADDER: Bladder is partially decompressed secondary to White catheter. Although this can accentuate the bladd er wall, there is diffuse bladder wall thickening. There is a an echogenic bladder calculus measuring 2.2 x 0.4 x 2.3 cm similar to prior CT exam. Small amount of air is also noted in the bladder. Incid ental note of prosthetic enlargement with mass effect at the base of the bladder.. CONCLUSION: 1. Subtle interval enlargement of posterior right perinephric hematoma now measuring 11.2 x 7.8 x 7.9 cm in comparison to 11.0 x 8.5 x 5.8 cm on 03/01/17 CT exam. 2. No evidence for obstructive uropathy. 3. Multiple stable bilateral renal cysts similar to recent CT exam, as above. 4. Redemonstration of 2.2 x 0.4 x 2.3 cm bladder calculus. 5. Diffuse bladder wall thickening with enlarged prostate and associated mass effect at the base of t he bladder. This may reflect some degree of bladder outlet obstruction. Clifford Sanchez MD on March 06, 2017 at 14:23 Board Certified Radiologist. This report was verified electronically.
[2017-03-06] MEDS ORDERED: MAGNESIUM SULFATE 1 GM PREMIX 100 ML IV SCH (15:30)
--- NOTE | 2017-03-06 15:30 | PD.CONS ---
HPI Service Nephrology Consult Requested By Dr. Leigh Reason for Consult ARF/CKD Primary Care Physician [facility] History of Present Illness Patient is a 71-year-old white male with history of smoking, peripheral vascular disease, coronary artery disease history of stents in aorta and coronary artery who has been having chronic diarrhea and has chronic renal insufficiency with acute exacerbation, he has multiple electrolyte imbalance magnesium is low Review of Systems Constitutional: COMPLAINS OF: Fatigue Gastrointestinal: COMPLAINS OF: Diarrhea Past Family Social History Allergies: Coded Allergies: No Known Allergies (Verified Allergy, Unknown, 02/28/17) Past Medical History Hyperlipidemia Tubulovillous colon polyps Esophagitis Duodenitis CAD, S/P PCI, stent Hyperlipidemia A. fib on Coumadin Anxiety COPD CHF AAA Repair CKD Chronic Back Pain DM Chronic pancreatitis Chronic diarrhea Anemia Gastritis, duodenitis Duodenal tubular adenoma Adenomatous/tubulovillous colon polyps Duodenal AVMs Past Surgical History EGD Colonoscopy Hernia Repair Cardiac Stent AAA Repair Tonsillectomy Reported Medications Reported Meds & Active Scripts Active Pantoprazole (Pantoprazole Sodium) 40 Mg Tab 40 Mg PO DAILY Ferosul (Ferrous Sulfate) 325 Mg Tablet 325 Mg PO DAILY Vitamin D3 (Cholecalciferol) 5,000 Unit Cap 5,000 Units PO DAILY Oyster Shell 250 mg + Vit D Tb (Calcium/Vitamin D) 250 Mg Calcium (625 Mg)-125 Unit Tablet 500 Mg PO Q12HR Rocaltrol (Calcitriol) 0.25 Mcg Cap 0.5 Mcg PO DAILY Coreg (Carvedilol) 3.125 Mg Tab 3.125 Mg PO BID Reported Losartan (Losartan Potassium) 25 Mg Tab 25 Mg PO DAILY Hydralazine HCl 25 Mg Tablet 10 Mg PO TID Warfarin 5 Mg Tab 5 Mg PO Sun start if repeat labs 02/02 stable and ok by PCP Warfarin 2.5 Mg Tab 2.5 Mg PO DAILY start if repeat labs 02/02 stable and ok by PCP Pravastatin 40 Mg Tab 40 Mg PO DAILY Active Ordered Medications Current Medications Medications (Trade) Dose Ordered Sig/Ana Route Start Time Stop Time Status Last Admin (NS Flush) 2 ml UNSCH PRN IV FLUSH 02/28/17 10:00 03/01/17 02:10 (NS Flush) 2 ml BID IV FLUSH 02/28/17 21:00 03/06/17 09:20 (Zofran Inj) 4 mg Q6H PRN IVP 02/28/17 10:00 (Narcan Inj) 0.4 mg UNSCH PRN IV PUSH 02/28/17 10:00 (Valerie-Colace) 1 tab BID PO 02/28/17 21:00 03/06/17 09:20 (Milk Of Magnesia Liq) 30 ml Q12H PRN PO 02/28/17 10:00 (Senokot) 17.2 mg Q12H PRN PO 02/28/17 10:00 (Dulcolax Supp) 10 mg DAILY PRN RECTAL 02/28/17 10:00 (Lactulose Liq) 30 ml DAILY PRN PO 02/28/17 10:00 (D50w (Vial) Inj) 50 ml UNSCH PRN IV PUSH 02/28/17 12:15 (Glucagon Inj) 1 mg UNSCH PRN OTHER 02/28/17 12:15 (NovoLOG SUPPLEMENTAL SCALE) 1 ACHS SLIDING SCALE SQ 02/28/17 17:00 03/04/17 22:08 (Protonix Inj) 40 mg DAILY IV PUSH 02/28/17 12:15 03/06/17 09:20 (Rocaltrol) 0.5 mcg DAILY PO 03/01/17 09:00 03/06/17 09:20 (Oscal-D 250-125) 500 mg Q12HR PO 02/28/17 21:00 03/06/17 09:20 (Vitamin D3) 5,000 units DAILY PO 03/01/17 09:00 03/06/17 09:20 (Ferrous Sulfate) 325 mg DAILY PO 03/01/17 09:00 03/06/17 09:19 (Apresoline) 10 mg TID PO 02/28/17 13:00 03/06/17 12:24 (Cozaar) 25 mg DAILY PO 03/01/17 09:00 03/06/17 09:20 (Pravachol) 40 mg DAILY PO 03/01/17 09:00 03/06/17 09:20 (Tylenol) 500 mg Q6H PRN PO 03/01/17 21:45 (Coreg) 6.25 mg Q12HR PO 03/02/17 21:00 03/06/17 09:20 (Roxicodone) 5 mg Q4H PRN PO 03/02/17 12:00 03/06/17 00:23 Pharmacy Profile Note 0 ml @ 0 mls/hr UNSCH OTHER 03/05/17 09:30 Piperacillin Sod/ Tazobactam Sod 50 ml @ 100 mls/hr Q6H IV 03/05/17 10:00 03/06/17 09:25 (Duoneb Neb) 1 ampule Q2HR NEB PRN NEB 03/05/17 11:00 Vancomycin HCl 1000 mg/Sodium Chloride 250 ml @ 250 mls/hr Q24H IV 03/06/17 12:00 03/06/17 12:22 Miscellaneous Information SPECIFIC LAB TO BE ... ONCE ONCE .XX 03/08/17 11:45 03/08/17 11:46 Family History Noncontributory Social History History of chronic smoking Physical Exam Vital Signs Vital Signs Date Time Temp Pulse Resp B/P (MAP) Pulse Ox O2 Delivery O2 Flow Rate FiO2 03/06/17 12:00 97.7 61 20 105/52 (69) 95 03/06/17 08:00 97.7 72 20 107/55 (72) 94 03/06/17 04:00 97.8 64 16 116/56 (76) 95 03/06/17 00:00 97.7 65 18 102/56 (71) 95 03/05/17 20:00 Room Air 03/05/17 20:00 70 03/05/17 20:00 97.6 70 18 122/59 (80) 94 03/05/17 16:00 99.2 70 20 126/63 (84) 95 Physical Exam GENERAL: Well-nourished, well-developed patient. SKIN: Warm and dry. HEAD: Normocephalic. EYES: No scleral icterus. No injection or drainage. NECK: Supple, trachea midline. No JVD or lymphadenopathy. CARDIOVASCULAR: Irregularly RESPIRATORY: Breath sounds initiated basis GASTROINTESTINAL: Abdomen soft, non-tender, nondistended. EXTREMITIES: No cyanosis, or edema. NEUROLOGICAL: Awake, alert, and oriented x 3. Non-focal. Laboratory Laboratory Tests Test 03/06/17 07:02 White Blood Count 11.2 Red Blood Count 3.44 Hemoglobin 9.9 Hematocrit 30.8 Mean Corpuscular Volume 89.7 Mean Corpuscular Hemoglobin 28.9 Mean Corpuscular Hemoglobin Concent 32.3 Red Cell Distribution Width 16.4 Platelet Count 158 Mean Platelet Volume 9.9 Blood Urea Nitrogen 52 Creatinine 1.90 Random Glucose 103 Total Protein 4.8 Calcium Level 7.0 Magnesium Level 1.4 Sodium Level 142 Potassium Level 3.8 Chloride Level 116 Carbon Dioxide Level 16.1 Anion Gap 10 Estimat Glomerular Filtration Rate 35 Protein Corrected Calcium 8.2 Date/Time Source Procedure Growth Status 03/05/17 15:40 Blood Peripheral Aerobic Blood Culture - Preliminary NO GROWTH IN 1 DAY Resulted 03/05/17 15:40 Blood Peripheral Anaerobic Blood Culture - Preliminary NO GROWTH IN 1 DAY Resulted 03/05/17 04:30 Urine Catheterized Urine Urine Culture - Final 50-100,000 CFU/ML MIXED SILVINA... Complete Result Diagram: 03/06/17 0702 03/06/17 0702 Imaging Last Impressions Renal Ultrasound 03/06/17 0000 Signed Impressions: Service Date/Time: Monday, March 06, 2017 13:01 - CONCLUSION: 1. Subtle interval enlargement of posterior right perinephric hematoma now measuring 11.2 x 7.8 x 7.9 cm in comparison to 11.0 x 8.5 x 5.8 cm on 03/01/17 CT exam. 2. No evidence for obstructive uropathy. 3. Multiple stable bilateral renal cysts similar to recent CT exam, as above. 4. Redemonstration of 2.2 x 0.4 x 2.3 cm bladder calculus. 5. Diffuse bladder wall thickening with enlarged prostate and associated mass effect at the base of the bladder. This may reflect some degree of bladder outlet obstruction. Clifford Sanchez MD Chest X-Ray 03/04/17 0000 Signed Impressions: Service Date/Time: Saturday, March 04, 2017 14:51 - CONCLUSION: Mild patchy infiltrates in the infrahilar lungs bilaterally. Blaze Marshall MD Abdomen/Pelvis CT 03/01/17 0000 Signed Impressions: Service Date/Time: February 14:01 - CONCLUSION: 1. Interval increase in the size of the right perirenal hematoma, now measuring 8.5 cm. 2. Other findings are stable compared to prior CT. Blaze Marshall MD Assessment and Plan Problem List: (1) Acute renal failure ICD Codes: N17.9 - Acute kidney failure, unspecified Status: Acute Plan: Patient is having diarrhea and is also showing hypochloremic non-anion gap acidosis I will give him sodium bicarbonate with half-normal saline follow BMP Has a right renal hematoma urology is aware and following him and advise conservative approach Patient will get magnesium sulfate as well (2) CKD (chronic kidney disease) stage 3, GFR 30-59 ml/min ICD Codes: N18.3 - Chronic kidney disease, stage 3 (moderate) Plan: Monitor output (3) Anemia ICD Codes: D64.9 - Anemia, unspecified Status: Acute Plan: Hematology is following and he has right renal hematoma (4) Atrial fibrillation with RVR ICD Codes: I48.91 - Unspecified atrial fibrillation Status: Acute (5) DM (diabetes mellitus) ICD Codes: E11.9 - DM (diabetes mellitus) Status: Chronic (6) HTN (hypertension) ICD Codes: I10 - HTN (hypertension) Status: Chronic Cecilio Howard MD Mar 06, 2017 15:30
--- NOTE | 2017-03-06 17:46 | HHI.PR ---
Subjective Remarks Patient c/o watery diarrhea, states has had 4 episodes so far today. Denies abdominal pain, nausea, vomiting. Denies fevers. Objective Vitals Vital Signs Date Time Temp Pulse Resp B/P (MAP) Pulse Ox O2 Delivery O2 Flow Rate FiO2 03/06/17 16:02 97.8 57 20 107/53 (71) 95 03/06/17 16:00 97.7 62 20 115/56 (75) 96 03/06/17 12:00 97.7 61 20 105/52 (69) 95 03/06/17 08:00 97.7 72 20 107/55 (72) 94 03/06/17 04:00 97.8 64 16 116/56 (76) 95 03/06/17 00:00 97.7 65 18 102/56 (71) 95 03/05/17 20:00 Room Air 03/05/17 20:00 70 03/05/17 20:00 97.6 70 18 122/59 (80) 94 I/O 03/05/17 03/05/17 03/05/17 03/06/17 03/06/17 03/06/17 07:00 15:00 23:00 07:00 15:00 23:00 Intake Total 540 ml 300 ml 1650 ml 240 ml 720 ml Output Total 750 ml 800 ml 500 ml Balance -210 ml 300 ml 850 ml -260 ml 720 ml Intake Oral 540 ml 600 ml 240 ml 720 ml IV Total 300 ml 1050 ml Output Urine Total 750 ml 800 ml 500 ml # Bowel Movements 2 2 3 Result Diagram: 03/06/17 0702 03/06/17 0702 Imaging Last Impressions Renal Ultrasound 03/06/17 0000 Signed Impressions: Service Date/Time: Monday, March 06, 2017 13:01 - CONCLUSION: 1. Subtle interval enlargement of posterior right perinephric hematoma now measuring 11.2 x 7.8 x 7.9 cm in comparison to 11.0 x 8.5 x 5.8 cm on 03/01/17 CT exam. 2. No evidence for obstructive uropathy. 3. Multiple stable bilateral renal cysts similar to recent CT exam, as above. 4. Redemonstration of 2.2 x 0.4 x 2.3 cm bladder calculus. 5. Diffuse bladder wall thickening with enlarged prostate and associated mass effect at the base of the bladder. This may reflect some degree of bladder outlet obstruction. Clifford Sanchez MD Chest X-Ray 03/04/17 0000 Signed Impressions: Service Date/Time: Saturday, March 04, 2017 14:51 - CONCLUSION: Mild patchy infiltrates in the infrahilar lungs bilaterally. Blaze Marshall MD Abdomen/Pelvis CT 03/01/17 0000 Signed Impressions: Service Date/Time: February 14:01 - CONCLUSION: 1. Interval increase in the size of the right perirenal hematoma, now measuring 8.5 cm. 2. Other findings are stable compared to prior CT. Blaze Marshall MD Objective Remarks AAOx3 Clear lungs abdomen mildly distended, non tender to palpation, (+) bowel sounds. No edema in lower extremities Medications and IVs Current Medications Medications (Trade) Dose Ordered Sig/Ana Route Start Time Stop Time Status Last Admin (NS Flush) 2 ml UNSCH PRN IV FLUSH 02/28/17 10:00 03/01/17 02:10 (NS Flush) 2 ml BID IV FLUSH 02/28/17 21:00 03/06/17 09:20 (Zofran Inj) 4 mg Q6H PRN IVP 02/28/17 10:00 (Narcan Inj) 0.4 mg UNSCH PRN IV PUSH 02/28/17 10:00 (Valerie-Colace) 1 tab BID PO 02/28/17 21:00 03/06/17 09:20 (Milk Of Magnesia Liq) 30 ml Q12H PRN PO 02/28/17 10:00 (Senokot) 17.2 mg Q12H PRN PO 02/28/17 10:00 (Dulcolax Supp) 10 mg DAILY PRN RECTAL 02/28/17 10:00 (Lactulose Liq) 30 ml DAILY PRN PO 02/28/17 10:00 (D50w (Vial) Inj) 50 ml UNSCH PRN IV PUSH 02/28/17 12:15 (Glucagon Inj) 1 mg UNSCH PRN OTHER 02/28/17 12:15 (NovoLOG SUPPLEMENTAL SCALE) 1 ACHS SLIDING SCALE SQ 02/28/17 17:00 03/04/17 22:08 (Protonix Inj) 40 mg DAILY IV PUSH 02/28/17 12:15 03/06/17 09:20 (Rocaltrol) 0.5 mcg DAILY PO 03/01/17 09:00 03/06/17 09:20 (Oscal-D 250-125) 500 mg Q12HR PO 02/28/17 21:00 03/06/17 09:20 (Vitamin D3) 5,000 units DAILY PO 03/01/17 09:00 03/06/17 09:20 (Ferrous Sulfate) 325 mg DAILY PO 03/01/17 09:00 03/06/17 09:19 (Apresoline) 10 mg TID PO 02/28/17 13:00 03/06/17 12:24 (Cozaar) 25 mg DAILY PO 03/01/17 09:00 03/06/17 09:20 (Pravachol) 40 mg DAILY PO 03/01/17 09:00 03/06/17 09:20 (Tylenol) 500 mg Q6H PRN PO 03/01/17 21:45 (Coreg) 6.25 mg Q12HR PO 03/02/17 21:00 03/06/17 09:20 (Roxicodone) 5 mg Q4H PRN PO 03/02/17 12:00 03/06/17 00:23 Pharmacy Profile Note 0 ml @ 0 mls/hr UNSCH OTHER 03/05/17 09:30 Piperacillin Sod/ Tazobactam Sod 50 ml @ 100 mls/hr Q6H IV 03/05/17 10:00 03/06/17 09:25 (Duoneb Neb) 1 ampule Q2HR NEB PRN NEB 03/05/17 11:00 Vancomycin HCl 1000 mg/Sodium Chloride 250 ml @ 250 mls/hr Q24H IV 03/06/17 12:00 03/06/17 12:22 Miscellaneous Information SPECIFIC LAB TO BE JUNG... ONCE ONCE .XX 03/08/17 11:45 03/08/17 11:46 Sodium Bicarbonate 100 meq/Sodium Chloride 1,100 ml @ 83 mls/hr [id number] IV 03/06/17 17:00 Magnesium Sulfate/ Dextrose 100 ml @ 100 mls/hr Q1H IV 03/06/17 16:30 03/06/17 18:29 A/P Problem List: (1) Acute blood loss anemia ICD Code: D62 - Acute posthemorrhagic anemia Status: Resolved (2) GI bleed ICD Code: K92.2 - Gastrointestinal hemorrhage, unspecified Status: Resolved (3) Perinephric hematoma ICD Code: S37.019A - Minor contusion of unspecified kidney, initial encounter Status: Acute (4) HCAP (healthcare-associated pneumonia) ICD Code: J18.9 - Pneumonia, unspecified organism Assessment and Plan Acute Blood loss Anemia. Possibly s/t GI bleed vs renal hemorrhage. From the last hospitalization hemoglobin is relatively stable. In January hemoglobin was 8.4 and now is 7.7. Patient does not have any gross bleeding. He does have a positive Hemoccult done in the ED. Patient is also on chronic anticoagulation with Coumadin. S/p 4 units red blood cells. Hemoglobin currently stable. GI and hematology consulted and recommendations appreciated. - Will hold Coumadin for now. Possibly resume at lower dose on discharge. Follow up with hematology. - Protonix. - follow CBC and transfuse as needed. Stable. - Rpt. Colonoscopy end of March as planned. GI signed off. Right perinephric hematoma Noted on last admission. CT abdomen showed spontaneous hemorrhage involving the right mid pole kidney measuring 6.5 cm in size. Repeat CT showed increasing size to 8.5 cm. Appreciate urology consult. - continue to hold Coumadin. Defer to urology and hematology in regards to resuming anticoagulation. The pt is not sure he wants to resume anticoagulation. - follow CBC, if hgb decreases may consider IR embolization. Stable. 03/06 Ordered renal ultrasound as described above, there is enlargement of perinephric hematoma but no signs of obstructive uropahty. there is diffuse bladder wall thickening with nelarged prostate and associated mass effect at the base of the bladder. HCAP CXR with bilateral mild infiltrates. Recently hospitalized. - start IV vancomycin and Zosyn 03/05. - oxygen and nebs as needed. - sputum culture and gram stain, blood cultures. - incentive spirometry. - PT. 03/07 DC IV Vancomycin and IV zosyn. Will start on oral doxycycline. Bladder Stone/ UTI CT abdomen showed bladder stone measuring 1.61cm on last admit. UA indicative of infection. - White in place. - Follow up with urology. - antibiotics. 03/07 urine culture concomitant with contamination. ASUNCION on Chronic Kidney Disease stage 3 - Avoid nephrotoxins. - Strict ins and outs. - start IVFs and monitor. 03/06 Worsening creatinine from 1.4 from admission to 1.9. Nephrology consult. Will start on IV fluids as per nephrology recommendations. started on NS with sodium bicarbonate as per nephrology. Continue to monitor BUN and creatinine and BMP for resolution of acidosis. 03/07 Creatinine Trending up. Nephrology following. Will increase the rate of IV fluids to 100 ml/hr. Hyperchloremic metabolic acidosis 03/07 due to diarrhea. C diff PCR negative. Will start patient on immodium and Lactobacillus acidophilus. Atrial fibrillation/ V tach On chronic anticoagulation with Coumadin. INR is 1.2. The patient has been having problems with bleeding. The pt had a run of V tach vs A fib with aberrancy 03/02. - Will hold Coumadin and follow up with hematology. - telemetry. - increased Coreg to 6.25 mg BID. 03/06 Rate controlled, no reported events of V tach. Diabetes Mellitus With neuropathy and retinopathy. 03/06 Blood sugars stable. Continue SSI and continue to monitor accuchecks. Hypocalcemia 03/07 Calcium level improved. Replaced with IV Calcium chloride. Continue to monitor calcium levels. Likely decreased secondary to decreased oral intake. Hypomagnesemia Will replace with IV magnesium sulfate. Continue to monitor magnesium levels. Given that patient had episode of V. tach. Magnesium should be closer to 2. 03/07 Magnesium level 1.9 Continue to monitor. Tobacco Use - Patient counseled on cessation. DVT prophylaxis- chemical prophylaxis contraindicated at this time secondary to active bleeding Discharge Planning Pending improvement of creatinine, resolution of acidosis, nephrology clearance. French Elliott MD Mar 06, 2017 17:46
[2017-03-06] MEDS: SODIUM BICARBONATE 8.4% INJ 100 MEQ in SODIUM CHLOR 0.45% 1000 ML INJ 1,000 ML IV SCH (18:14)
[2017-03-06] MEDS: MAGNESIUM SULFATE 1 GM PREMIX 100 ML IV SCH ×2 (18:15→19:59)
[2017-03-06 21:41] LABS: C. DIFF EPI 027 PRESUMPTIVE NEGATIVE (NEGATIVE)
[2017-03-07] VITALS (10 sets, daily range): BP systolic 101–119; BP diastolic 51–58; PULSE 57–65; RESP 18–20; TEMP 97.3–97.9; O2SAT 91–95
[2017-03-07] MEDS: PIPERACIL-TAZO 2.25 GM PREMIX 50 ML IV SCH ×3 (04:55→16:00)
[2017-03-07] MEDS: SODIUM BICARBONATE 8.4% INJ 100 MEQ in SODIUM CHLOR 0.45% 1000 ML INJ 1,000 ML IV SCH ×2 (06:16→13:07)
[2017-03-07] MEDS: INSULIN ASPART SUPPLEMENTAL SCALE SQ SCH ×4 (08:00→20:57)
[2017-03-07] MEDS: PANTOPRAZOLE SODIUM 40 MG VIAL IV PUSH SCH (08:21)
[2017-03-07] MEDS: CALCITRIOL 0.25 MCG CAP PO SCH (08:22)
[2017-03-07] MEDS: FERROUS SULFATE 325 MG (65 MG ELEMENTAL IRON) TAB PO SCH (08:22)
[2017-03-07] MEDS: CARVEDILOL 6.25 MG TAB PO SCH ×2 (08:22→20:57)
[2017-03-07] MEDS: PRAVASTATIN SOD 40 MG TAB PO SCH (08:22)
[2017-03-07] MEDS: hydrALAZINE HCL 10 MG TAB PO SCH ×3 (08:23→18:06)
[2017-03-07] MEDS: DOCUSATE SODIUM 50 MG/SENNA 8.6 MG TAB PO SCH ×2 (08:23→20:57)
[2017-03-07] MEDS: CHOLECALCIFEROL (VIT D3) 5000 UNIT CAP PO SCH (08:23)
[2017-03-07] MEDS: LOSARTAN 25 MG TAB PO SCH (08:23)
[2017-03-07] MEDS: CALCIUM/VITAMIN D 250 MG/125 U TAB PO SCH ×2 (08:23→20:57)
[2017-03-07] MEDS: SODIUM CHLORIDE 0.9% FLUSH 10 ML FLUSH IV FLUSH SCH ×2 (09:00→20:57)
[2017-03-07 09:01] LABS: AUTOMATED NEUTROPHIL # 8.4 TH/MM3 (1.8-7.7); BASOPHIL % 0.3 % (0.0-2.0); EOSINOPHIL # 0.5 TH/MM3 (0-0.4); EOSINOPHIL % 4.8 % (0.0-4.0); HEMO FLAGS DIFF FINAL; LYMPH % 4.1 % (9.0-44.0); LYMPHOCYTE # 0.4 TH/MM3 (1.0-4.8); MEAN CELL VOLUME 89.5 FL (80.0-100.0); MEAN CORPUSCULAR HEMOGLOBIN 29.8 PG (27.0-34.0); MEAN CORPUSCULAR HGB CONC 33.3 % (32.0-36.0); MONO % 10.4 % (0.0-8.0); NEUT % 80.4 % (16.0-70.0); PLATELET COUNT 153 TH/MM3 (150-450); RED BLOOD COUNT 3.24 MIL/MM3 (4.50-5.90); RED CELL DISTRIBUTION WIDTH 16.6 % (11.6-17.2); WHITE BLOOD COUNT 10.4 TH/MM3 (4.0-11.0)
[2017-03-07 09:27] LABS: ANION GAP 11 MEQ/L (5-15); AST (GOT) 7 U/L (15-37); BICARBONATE 15.1 MEQ/L (21.0-32.0); BLOOD UREA NITROGEN 53 MG/DL (7-18); CHLORIDE 116 MEQ/L (98-107); GLOMERULAR FILTRATION RATE 30 ML/MIN (>89); MAGNESIUM 1.9 MG/DL (1.5-2.5); POTASSIUM 3.9 MEQ/L (3.5-5.1); SODIUM (NA) 142 MEQ/L (136-145)
[2017-03-07 09:33] LABS: ALKALINE PHOSPHATASE 110 U/L (45-117); ALT (GPT) 6 U/L (12-78); TOTAL BILIRUBIN ADULT 0.3 MG/DL (0.2-1.0)
[2017-03-07] MEDS ORDERED: LOPERAMIDE HCL 2 MG CAP PO ONE (10:30)
[2017-03-07] MEDS: LACTOBACILLUS ACIDOPHILUS TAB PO SCH ×2 (12:40→18:05)
--- NOTE | 2017-03-07 20:04 | HHI.NPPN ---
Subjective History of Present Illness 71-year-old with peripheral vascular disease and right perinephric hematoma which is enlarging patient has developed acute renal failure and has hyperchloremic metabolic acidosis Review of Systems General Constitutional: Fatigue Objective Data Data 03/07/17 03/08/17 19:00 07:00 Intake Total 1930 ml Output Total 1375 ml Balance 555 ml Intake Oral 480 ml IV Total 1450 ml Output Urine Total 1375 ml # Bowel Movements 1 Vital Signs Date Time Temp Pulse Resp B/P (MAP) Pulse Ox O2 Delivery O2 Flow Rate FiO2 03/07/17 16:00 97.8 64 20 110/58 (75) 91 03/07/17 13:40 20 03/07/17 12:30 57 03/07/17 12:00 97.4 61 20 109/51 (70) 93 03/07/17 08:00 60 03/07/17 08:00 97.9 62 20 119/57 (77) 92 03/07/17 08:00 Room Air 03/07/17 04:05 58 03/07/17 04:00 97.4 65 20 101/56 (71) 95 03/07/17 04:00 Room Air 03/07/17 00:00 97.3 60 18 101/54 (70) 95 03/07/17 00:00 Room Air 03/06/17 23:46 58 -: 03/07/17 0739 03/07/17 0739 Physical Exam General Appearance: Well Developed Neck Neck Exam: Neck Supple Pulmonary Resp Exam: Decreased Bases Cardiology CV Exam: Irregular Gastrointestinal/Abdomen GI Exam: Soft, Non-Tender, Bowel Sounds Present Extremeties Extremities Exam: No Edema Assessment/Plan Problem List: (1) Acute renal failure ICD Codes: N17.9 - Acute kidney failure, unspecified Status: Acute Plan: Patient is having diarrhea and is also showing hypochloremic non-anion gap acidosis Has a right renal hematoma urology which is enlarging Due to worsening renal failure I will reconsult urology He has a far not responded to IV hydration (2) CKD (chronic kidney disease) stage 3, GFR 30-59 ml/min ICD Codes: N18.3 - Chronic kidney disease, stage 3 (moderate) Plan: Monitor output (3) Anemia ICD Codes: D64.9 - Anemia, unspecified Status: Acute Plan: Hematology is following and he has right renal hematoma (4) Atrial fibrillation with RVR ICD Codes: I48.91 - Unspecified atrial fibrillation Status: Acute (5) DM (diabetes mellitus) ICD Codes: E11.9 - DM (diabetes mellitus) Status: Chronic (6) HTN (hypertension) ICD Codes: I10 - HTN (hypertension) Status: Chronic Cecilio Howard MD Mar 07, 2017 20:04
[2017-03-07] MEDS: DOXYCYCLINE HYCLATE 100 MG CAP PO SCH (20:57)
[2017-03-08] VITALS (8 sets, daily range): BP systolic 99–121; BP diastolic 56–60; PULSE 59–66; RESP 18–19; TEMP 97.6–98.8; O2SAT 91–95
[2017-03-08] MEDS: SODIUM BICARBONATE 8.4% INJ 100 MEQ in SODIUM CHLOR 0.45% 1000 ML INJ 1,000 ML IV SCH (00:49)
[2017-03-08] MEDS: LOPERAMIDE HCL 2 MG CAP PO PRN ×3 (04:35→20:58)
[2017-03-08 07:00] LABS: AUTOMATED NEUTROPHIL # 7.4 TH/MM3 (1.8-7.7); BASOPHIL % 0.4 % (0.0-2.0); EOSINOPHIL # 0.6 TH/MM3 (0-0.4); EOSINOPHIL % 6.2 % (0.0-4.0); HEMATOCRIT 27.8 % (39.0-51.0); HEMO FLAGS DIFF FINAL; LYMPH % 5.8 % (9.0-44.0); LYMPHOCYTE # 0.6 TH/MM3 (1.0-4.8); MEAN CELL VOLUME 88.9 FL (80.0-100.0); MEAN CORPUSCULAR HEMOGLOBIN 29.1 PG (27.0-34.0); MEAN CORPUSCULAR HGB CONC 32.7 % (32.0-36.0); MONO % 10.7 % (0.0-8.0); NEUT % 76.9 % (16.0-70.0); PLATELET COUNT 154 TH/MM3 (150-450); RED BLOOD COUNT 3.13 MIL/MM3 (4.50-5.90); RED CELL DISTRIBUTION WIDTH 16.1 % (11.6-17.2); WHITE BLOOD COUNT 9.6 TH/MM3 (4.0-11.0)
[2017-03-08 07:21] LABS: BICARBONATE 17.5 MEQ/L (21.0-32.0); POTASSIUM 3.9 MEQ/L (3.5-5.1)
[2017-03-08] MEDS: INSULIN ASPART SUPPLEMENTAL SCALE SQ SCH ×4 (08:00→20:59)
[2017-03-08] MEDS: DOCUSATE SODIUM 50 MG/SENNA 8.6 MG TAB PO SCH ×2 (09:00→20:59)
--- NOTE | 2017-03-08 09:12 | PD.PN.STU ---
Subjective Remarks Still complaining of watery diarrhea. He reports episodes "every 5 minutes" and complains of burning skin in perianal region. He denies fever, chills, nausea, vomiting. No chest pain or SOB. Reports poor sleep and appetite. Objective Vitals Vital Signs Date Time Temp Pulse Resp B/P (MAP) Pulse Ox O2 Delivery O2 Flow Rate FiO2 03/08/17 08:17 98.8 65 19 107/57 (74) 93 03/08/17 04:56 98.1 63 18 113/56 (75) 91 03/08/17 04:00 62 03/08/17 04:00 Room Air 03/08/17 00:00 Room Air 03/08/17 00:00 61 03/07/17 23:27 97.7 63 18 105/54 (71) 92 03/07/17 20:10 97.7 63 20 108/54 (72) 93 03/07/17 20:00 58 03/07/17 20:00 Room Air 03/07/17 16:00 97.8 64 20 110/58 (75) 91 03/07/17 13:40 20 03/07/17 12:30 57 03/07/17 12:00 97.4 61 20 109/51 (70) 93 I/O 03/07/17 03/07/17 03/07/17 03/08/17 03/08/17 03/08/17 07:00 15:00 23:00 07:00 15:00 23:00 Intake Total 480 ml 1930 ml 1760 ml Output Total 300 ml 1375 ml 400 ml Balance 180 ml 555 ml 1360 ml Intake Oral 480 ml 480 ml 360 ml IV Total 1450 ml 1400 ml Output Urine Total 300 ml 1375 ml 400 ml # Bowel Movements 3 1 3 Result Diagram: 03/08/17 0632 03/08/17 0632 Objective Remarks Awake, alert, and oriented x3, found lying in bed comfortably, in no apparent distress. Positive bowel sounds in all 4 quadrants. Abdomen mildly distended, nontender to palpation. No abdominal masses. No hepatomegaly or splenomegaly. Lungs clear to auscultation at all levels bilaterally. No clubbing, cyanosis, or edema of extremities. A/P Assessment and Plan Acute Blood loss Anemia. Possibly s/t GI bleed vs renal hemorrhage. From the last hospitalization hemoglobin is relatively stable. In January hemoglobin was 8.4 and now is 7.7. Patient does not have any gross bleeding. He does have a positive Hemoccult done in the ED. Patient is also on chronic anticoagulation with Coumadin. S/p 4 units red blood cells. Hemoglobin currently stable. GI and hematology consulted and recommendations appreciated. - Will hold Coumadin for now. Possibly resume at lower dose on discharge. Follow up with hematology. - Protonix. - follow CBC and transfuse as needed. Stable. - Rpt. Colonoscopy end of March as planned. GI signed off. Right perinephric hematoma Noted on last admission. CT abdomen showed spontaneous hemorrhage involving the right mid pole kidney measuring 6.5 cm in size. Repeat CT showed increasing size to 8.5 cm. Appreciate urology consult. - continue to hold Coumadin. Defer to urology and hematology in regards to resuming anticoagulation. The pt is not sure he wants to resume anticoagulation. - follow CBC, if hgb decreases may consider IR embolization. Stable. 03/06 Ordered renal ultrasound as described above, there is enlargement of perinephric hematoma but no signs of obstructive uropahty. there is diffuse bladder wall thickening with nelarged prostate and associated mass effect at the base of the bladder. HCAP CXR with bilateral mild infiltrates. Recently hospitalized. - start IV vancomycin and Zosyn 03/05. - oxygen and nebs as needed. - sputum culture and gram stain, blood cultures. - incentive spirometry. - PT. 03/07 DC IV Vancomycin and IV zosyn. Will start on oral doxycycline. Bladder Stone/ UTI CT abdomen showed bladder stone measuring 1.61cm on last admit. UA indicative of infection. - White in place. - Follow up with urology. - antibiotics. 03/07 urine culture concomitant with contamination. ASUNCION on Chronic Kidney Disease stage 3 - Avoid nephrotoxins. - Strict ins and outs. - start IVFs and monitor. 03/06 Worsening creatinine from 1.4 from admission to 1.9. Nephrology consult. Will start on IV fluids as per nephrology recommendations. started on NS with sodium bicarbonate as per nephrology. Continue to monitor BUN and creatinine and BMP for resolution of acidosis. 03/07 Creatinine Trending up. Nephrology following. Will increase the rate of IV fluids to 100 ml/hr. Hyperchloremic metabolic acidosis 03/07 due to diarrhea. C diff PCR negative. Will start patient on immodium and Lactobacillus acidophilus. Atrial fibrillation/ V tach On chronic anticoagulation with Coumadin. INR is 1.2. The patient has been having problems with bleeding. The pt had a run of V tach vs A fib with aberrancy 03/02. - Will hold Coumadin and follow up with hematology. - telemetry. - increased Coreg to 6.25 mg BID. 03/06 Rate controlled, no reported events of V tach. Diabetes Mellitus With neuropathy and retinopathy. 03/06 Blood sugars stable. Continue SSI and continue to monitor accuchecks. Hypocalcemia 03/07 Calcium level improved. Replaced with IV Calcium chloride. Continue to monitor calcium levels. Likely decreased secondary to decreased oral intake. Hypomagnesemia Will replace with IV magnesium sulfate. Continue to monitor magnesium levels. Given that patient had episode of V. tach. Magnesium should be closer to 2. 03/07 Magnesium level 1.9 Continue to monitor. Tobacco Use - Patient counseled on cessation. DVT prophylaxis- chemical prophylaxis contraindicated at this time secondary to active bleeding Discharge Planning Pending improvement of creatinine, resolution of acidosis, nephrology clearance. Sharda Zimmerman M3 Mar 08, 2017 09:12
[2017-03-08] MEDS: hydrALAZINE HCL 10 MG TAB PO SCH ×3 (10:02→18:20)
[2017-03-08] MEDS: FERROUS SULFATE 325 MG (65 MG ELEMENTAL IRON) TAB PO SCH (10:02)
[2017-03-08] MEDS: DOXYCYCLINE HYCLATE 100 MG CAP PO SCH ×2 (10:02→20:58)
[2017-03-08] MEDS: PRAVASTATIN SOD 40 MG TAB PO SCH (10:02)
[2017-03-08] MEDS: CHOLECALCIFEROL (VIT D3) 5000 UNIT CAP PO SCH (10:03)
[2017-03-08] MEDS: LOSARTAN 25 MG TAB PO SCH (10:03)
[2017-03-08] MEDS: CARVEDILOL 6.25 MG TAB PO SCH ×2 (10:03→20:58)
[2017-03-08] MEDS: CALCIUM/VITAMIN D 250 MG/125 U TAB PO SCH ×2 (10:03→20:58)
[2017-03-08] MEDS: CALCITRIOL 0.25 MCG CAP PO SCH (10:03)
[2017-03-08] MEDS: PANTOPRAZOLE SODIUM 40 MG VIAL IV PUSH SCH (10:04)
[2017-03-08] MEDS: SODIUM CHLORIDE 0.9% FLUSH 10 ML FLUSH IV FLUSH SCH ×2 (10:04→20:59)
[2017-03-08] MEDS: LACTOBACILLUS ACIDOPHILUS TAB PO SCH ×3 (10:06→18:20)
[2017-03-08] MEDS ORDERED: PHARMACY ORDERED LAB ONE (11:45)
--- NOTE | 2017-03-08 17:28 | HHI.PR ---
Subjective Remarks Deferred entry - patient seen on 03/07 still c/o diarrhea - denies abdominal pain Objective Vitals Vital Signs Date Time Temp Pulse Resp B/P (MAP) Pulse Ox O2 Delivery O2 Flow Rate FiO2 03/08/17 16:12 97.8 64 18 121/60 (80) 95 03/08/17 12:27 98.0 59 18 99/56 (70) 92 03/08/17 08:17 98.8 65 19 107/57 (74) 93 03/08/17 04:56 98.1 63 18 113/56 (75) 91 03/08/17 04:00 62 03/08/17 04:00 Room Air 03/08/17 00:00 Room Air 03/08/17 00:00 61 03/07/17 23:27 97.7 63 18 105/54 (71) 92 03/07/17 20:10 97.7 63 20 108/54 (72) 93 03/07/17 20:00 58 03/07/17 20:00 Room Air I/O 03/07/17 03/07/17 03/07/17 03/08/17 03/08/17 03/08/17 07:00 15:00 23:00 07:00 15:00 23:00 Intake Total 480 ml 1930 ml 1760 ml Output Total 300 ml 1375 ml 400 ml Balance 180 ml 555 ml 1360 ml Intake Oral 480 ml 480 ml 360 ml IV Total 1450 ml 1400 ml Output Urine Total 300 ml 1375 ml 400 ml # Bowel Movements 3 1 3 Result Diagram: 03/08/17 0632 03/08/17 0632 Imaging Last Impressions Renal Ultrasound 03/06/17 0000 Signed Impressions: Service Date/Time: Monday, March 06, 2017 13:01 - CONCLUSION: 1. Subtle interval enlargement of posterior right perinephric hematoma now measuring 11.2 x 7.8 x 7.9 cm in comparison to 11.0 x 8.5 x 5.8 cm on 03/01/17 CT exam. 2. No evidence for obstructive uropathy. 3. Multiple stable bilateral renal cysts similar to recent CT exam, as above. 4. Redemonstration of 2.2 x 0.4 x 2.3 cm bladder calculus. 5. Diffuse bladder wall thickening with enlarged prostate and associated mass effect at the base of the bladder. This may reflect some degree of bladder outlet obstruction. Clifford Sanchez MD Chest X-Ray 03/04/17 0000 Signed Impressions: Service Date/Time: Saturday, March 04, 2017 14:51 - CONCLUSION: Mild patchy infiltrates in the infrahilar lungs bilaterally. Blaze Marshall MD Abdomen/Pelvis CT 03/01/17 0000 Signed Impressions: Service Date/Time: February 14:01 - CONCLUSION: 1. Interval increase in the size of the right perirenal hematoma, now measuring 8.5 cm. 2. Other findings are stable compared to prior CT. Blaze Marshall MD Objective Remarks AAOx3 Clear lungs abdomen mildly distended, non tender to palpation, (+) bowel sounds. No edema in lower extremities Medications and IVs Current Medications Medications (Trade) Dose Ordered Sig/Ana Route Start Time Stop Time Status Last Admin (NS Flush) 2 ml UNSCH PRN IV FLUSH 02/28/17 10:00 03/01/17 02:10 (NS Flush) 2 ml BID IV FLUSH 02/28/17 21:00 03/08/17 10:04 (Zofran Inj) 4 mg Q6H PRN IVP 02/28/17 10:00 (Narcan Inj) 0.4 mg UNSCH PRN IV PUSH 02/28/17 10:00 (Valerie-Colace) 1 tab BID PO 02/28/17 21:00 03/07/17 08:23 (Milk Of Magnesia Liq) 30 ml Q12H PRN PO 02/28/17 10:00 (Senokot) 17.2 mg Q12H PRN PO 02/28/17 10:00 (Dulcolax Supp) 10 mg DAILY PRN RECTAL 02/28/17 10:00 (Lactulose Liq) 30 ml DAILY PRN PO 02/28/17 10:00 (D50w (Vial) Inj) 50 ml UNSCH PRN IV PUSH 02/28/17 12:15 (Glucagon Inj) 1 mg UNSCH PRN OTHER 02/28/17 12:15 (NovoLOG SUPPLEMENTAL SCALE) 1 ACHS SLIDING SCALE SQ 02/28/17 17:00 03/08/17 12:19 (Protonix Inj) 40 mg DAILY IV PUSH 02/28/17 12:15 03/08/17 10:04 (Rocaltrol) 0.5 mcg DAILY PO 03/01/17 09:00 03/08/17 10:03 (Oscal-D 250-125) 500 mg Q12HR PO 02/28/17 21:00 03/08/17 10:03 (Vitamin D3) 5,000 units DAILY PO 03/01/17 09:00 03/08/17 10:03 (Ferrous Sulfate) 325 mg DAILY PO 03/01/17 09:00 03/08/17 10:02 (Apresoline) 10 mg TID PO 02/28/17 13:00 03/08/17 12:21 (Cozaar) 25 mg DAILY PO 03/01/17 09:00 03/08/17 10:03 (Pravachol) 40 mg DAILY PO 03/01/17 09:00 03/08/17 10:02 (Tylenol) 500 mg Q6H PRN PO 03/01/17 21:45 (Coreg) 6.25 mg Q12HR PO 03/02/17 21:00 03/08/17 10:03 (Roxicodone) 5 mg Q4H PRN PO 03/02/17 12:00 03/08/17 05:25 (Duoneb Neb) 1 ampule Q2HR NEB PRN NEB 03/05/17 11:00 Sodium Bicarbonate 100 meq/Sodium Chloride 1,100 ml @ 125 mls/hr Q8H48M IV 03/06/17 17:00 03/08/17 00:49 (Lactinex) 1 tab TID PO 03/07/17 13:00 03/08/17 12:21 (Imodium) 2 mg Q4H PRN PO 03/07/17 10:30 03/08/17 10:02 (Vibramycin) 100 mg BID PO 03/07/17 21:00 03/08/17 10:02 A/P Problem List: (1) Acute blood loss anemia ICD Code: D62 - Acute posthemorrhagic anemia Status: Resolved (2) GI bleed ICD Code: K92.2 - Gastrointestinal hemorrhage, unspecified Status: Resolved (3) Perinephric hematoma ICD Code: S37.019A - Minor contusion of unspecified kidney, initial encounter Status: Acute (4) HCAP (healthcare-associated pneumonia) ICD Code: J18.9 - Pneumonia, unspecified organism Assessment and Plan Acute Blood loss Anemia. Possibly s/t GI bleed vs renal hemorrhage. From the last hospitalization hemoglobin is relatively stable. In January hemoglobin was 8.4 and now is 7.7. Patient does not have any gross bleeding. He does have a positive Hemoccult done in the ED. Patient is also on chronic anticoagulation with Coumadin. S/p 4 units red blood cells. Hemoglobin currently stable. GI and hematology consulted and recommendations appreciated. - Will hold Coumadin for now. Possibly resume at lower dose on discharge. Follow up with hematology. - Protonix. - follow CBC and transfuse as needed. Stable. - Rpt. Colonoscopy end of March as planned. GI signed off. Right perinephric hematoma Noted on last admission. CT abdomen showed spontaneous hemorrhage involving the right mid pole kidney measuring 6.5 cm in size. Repeat CT showed increasing size to 8.5 cm. Appreciate urology consult. - continue to hold Coumadin. Defer to urology and hematology in regards to resuming anticoagulation. The pt is not sure he wants to resume anticoagulation. - follow CBC, if hgb decreases may consider IR embolization. Stable. 03/06 Ordered renal ultrasound as described above, there is enlargement of perinephric hematoma but no signs of obstructive uropahty. there is diffuse bladder wall thickening with nelarged prostate and associated mass effect at the base of the bladder. HCAP CXR with bilateral mild infiltrates. Recently hospitalized. - start IV vancomycin and Zosyn 03/05. - oxygen and nebs as needed. - sputum culture and gram stain, blood cultures. - incentive spirometry. - PT. 03/07 DC IV Vancomycin and IV zosyn. Will start on oral doxycycline. Bladder Stone/ UTI CT abdomen showed bladder stone measuring 1.61cm on last admit. UA indicative of infection. - White in place. - Follow up with urology. - antibiotics. 03/07 urine culture concomitant with contamination. ASUNCION on Chronic Kidney Disease stage 3 - Avoid nephrotoxins. - Strict ins and outs. - start IVFs and monitor. 03/06 Worsening creatinine from 1.4 from admission to 1.9. Nephrology consult. Will start on IV fluids as per nephrology recommendations. started on NS with sodium bicarbonate as per nephrology. Continue to monitor BUN and creatinine and BMP for resolution of acidosis. 03/07 Creatinine Trending up. Nephrology following. Will increase the rate of IV fluids to 100 ml/hr. Hyperchloremic metabolic acidosis 03/07 due to diarrhea. C diff PCR negative. Will start patient on immodium and Lactobacillus acidophilus. Atrial fibrillation/ V tach On chronic anticoagulation with Coumadin. INR is 1.2. The patient has been having problems with bleeding. The pt had a run of V tach vs A fib with aberrancy 03/02. - Will hold Coumadin and follow up with hematology. - telemetry. - increased Coreg to 6.25 mg BID. 03/06 Rate controlled, no reported events of V tach. Diabetes Mellitus With neuropathy and retinopathy. 03/06 Blood sugars stable. Continue SSI and continue to monitor accuchecks. Hypocalcemia 03/07 Calcium level improved. Replaced with IV Calcium chloride. Continue to monitor calcium levels. Likely decreased secondary to decreased oral intake. Hypomagnesemia Will replace with IV magnesium sulfate. Continue to monitor magnesium levels. Given that patient had episode of V. tach. Magnesium should be closer to 2. 03/07 Magnesium level 1.9 Continue to monitor. Tobacco Use - Patient counseled on cessation. DVT prophylaxis- chemical prophylaxis contraindicated at this time secondary to active bleeding Discharge Planning Pending improvement of creatinine, resolution of acidosis, nephrology clearance. French Elliott MD Mar 08, 2017 17:28
--- NOTE | 2017-03-08 17:38 | HHI.PR ---
Subjective Remarks Patient still c/o of watery diarrhea - denies abdominal pain, nausea or vomiting. Objective Vitals Vital Signs Date Time Temp Pulse Resp B/P (MAP) Pulse Ox O2 Delivery O2 Flow Rate FiO2 03/08/17 16:12 97.8 64 18 121/60 (80) 95 03/08/17 12:27 98.0 59 18 99/56 (70) 92 03/08/17 08:17 98.8 65 19 107/57 (74) 93 03/08/17 04:56 98.1 63 18 113/56 (75) 91 03/08/17 04:00 62 03/08/17 04:00 Room Air 03/08/17 00:00 Room Air 03/08/17 00:00 61 03/07/17 23:27 97.7 63 18 105/54 (71) 92 03/07/17 20:10 97.7 63 20 108/54 (72) 93 03/07/17 20:00 58 03/07/17 20:00 Room Air I/O 03/07/17 03/07/17 03/07/17 03/08/17 03/08/17 03/08/17 07:00 15:00 23:00 07:00 15:00 23:00 Intake Total 480 ml 1930 ml 1760 ml Output Total 300 ml 1375 ml 400 ml Balance 180 ml 555 ml 1360 ml Intake Oral 480 ml 480 ml 360 ml IV Total 1450 ml 1400 ml Output Urine Total 300 ml 1375 ml 400 ml # Bowel Movements 3 1 3 Result Diagram: 03/08/17 0632 03/08/17 0632 Imaging Last Impressions Renal Ultrasound 03/06/17 0000 Signed Impressions: Service Date/Time: Monday, March 06, 2017 13:01 - CONCLUSION: 1. Subtle interval enlargement of posterior right perinephric hematoma now measuring 11.2 x 7.8 x 7.9 cm in comparison to 11.0 x 8.5 x 5.8 cm on 03/01/17 CT exam. 2. No evidence for obstructive uropathy. 3. Multiple stable bilateral renal cysts similar to recent CT exam, as above. 4. Redemonstration of 2.2 x 0.4 x 2.3 cm bladder calculus. 5. Diffuse bladder wall thickening with enlarged prostate and associated mass effect at the base of the bladder. This may reflect some degree of bladder outlet obstruction. Clifford Sanchez MD Chest X-Ray 03/04/17 0000 Signed Impressions: Service Date/Time: Saturday, March 04, 2017 14:51 - CONCLUSION: Mild patchy infiltrates in the infrahilar lungs bilaterally. Blaze Marshall MD Abdomen/Pelvis CT 03/01/17 0000 Signed Impressions: Service Date/Time: February 14:01 - CONCLUSION: 1. Interval increase in the size of the right perirenal hematoma, now measuring 8.5 cm. 2. Other findings are stable compared to prior CT. Blaze Marshall MD Objective Remarks AAOx3 Clear lungs abdomen mildly distended, non tender to palpation, (+) bowel sounds. No edema in lower extremities Medications and IVs Current Medications Medications (Trade) Dose Ordered Sig/Ana Route Start Time Stop Time Status Last Admin (NS Flush) 2 ml UNSCH PRN IV FLUSH 02/28/17 10:00 03/01/17 02:10 (NS Flush) 2 ml BID IV FLUSH 02/28/17 21:00 03/08/17 10:04 (Zofran Inj) 4 mg Q6H PRN IVP 02/28/17 10:00 (Narcan Inj) 0.4 mg UNSCH PRN IV PUSH 02/28/17 10:00 (Valerie-Colace) 1 tab BID PO 02/28/17 21:00 03/07/17 08:23 (Milk Of Magnesia Liq) 30 ml Q12H PRN PO 02/28/17 10:00 (Senokot) 17.2 mg Q12H PRN PO 02/28/17 10:00 (Dulcolax Supp) 10 mg DAILY PRN RECTAL 02/28/17 10:00 (Lactulose Liq) 30 ml DAILY PRN PO 02/28/17 10:00 (D50w (Vial) Inj) 50 ml UNSCH PRN IV PUSH 02/28/17 12:15 (Glucagon Inj) 1 mg UNSCH PRN OTHER 02/28/17 12:15 (NovoLOG SUPPLEMENTAL SCALE) 1 ACHS SLIDING SCALE SQ 02/28/17 17:00 03/08/17 12:19 (Protonix Inj) 40 mg DAILY IV PUSH 02/28/17 12:15 03/08/17 10:04 (Rocaltrol) 0.5 mcg DAILY PO 03/01/17 09:00 03/08/17 10:03 (Oscal-D 250-125) 500 mg Q12HR PO 02/28/17 21:00 03/08/17 10:03 (Vitamin D3) 5,000 units DAILY PO 03/01/17 09:00 03/08/17 10:03 (Ferrous Sulfate) 325 mg DAILY PO 03/01/17 09:00 03/08/17 10:02 (Apresoline) 10 mg TID PO 02/28/17 13:00 03/08/17 12:21 (Cozaar) 25 mg DAILY PO 03/01/17 09:00 03/08/17 10:03 (Pravachol) 40 mg DAILY PO 03/01/17 09:00 03/08/17 10:02 (Tylenol) 500 mg Q6H PRN PO 03/01/17 21:45 (Coreg) 6.25 mg Q12HR PO 03/02/17 21:00 03/08/17 10:03 (Roxicodone) 5 mg Q4H PRN PO 03/02/17 12:00 03/08/17 05:25 (Duoneb Neb) 1 ampule Q2HR NEB PRN NEB 03/05/17 11:00 Sodium Bicarbonate 100 meq/Sodium Chloride 1,100 ml @ 125 mls/hr Q8H48M IV 03/06/17 17:00 03/08/17 00:49 (Lactinex) 1 tab TID PO 03/07/17 13:00 03/08/17 12:21 (Imodium) 2 mg Q4H PRN PO 03/07/17 10:30 03/08/17 10:02 (Vibramycin) 100 mg BID PO 03/07/17 21:00 03/08/17 10:02 A/P Problem List: (1) Acute blood loss anemia ICD Code: D62 - Acute posthemorrhagic anemia Status: Resolved (2) GI bleed ICD Code: K92.2 - Gastrointestinal hemorrhage, unspecified Status: Resolved (3) Perinephric hematoma ICD Code: S37.019A - Minor contusion of unspecified kidney, initial encounter Status: Acute (4) HCAP (healthcare-associated pneumonia) ICD Code: J18.9 - Pneumonia, unspecified organism (5) CKD (chronic kidney disease) stage 3, GFR 30-59 ml/min ICD Code: N18.3 - Chronic kidney disease, stage 3 (moderate) (6) ASUNCION (acute kidney injury) ICD Code: N17.9 - Acute kidney failure, unspecified Status: Acute (7) HTN (hypertension) ICD Code: I10 - HTN (hypertension) Status: Chronic (8) Diarrhea ICD Code: R19.7 - Diarrhea, unspecified Status: Acute Assessment and Plan Acute Blood loss Anemia. Possibly s/t GI bleed vs renal hemorrhage. From the last hospitalization hemoglobin is relatively stable. In January hemoglobin was 8.4 and now is 7.7. Patient does not have any gross bleeding. He does have a positive Hemoccult done in the ED. Patient is also on chronic anticoagulation with Coumadin. S/p 4 units red blood cells. Hemoglobin currently stable. GI and hematology consulted and recommendations appreciated. - Will hold Coumadin for now. Possibly resume at lower dose on discharge. Follow up with hematology. - Protonix. - follow CBC and transfuse as needed. Stable. - Rpt. Colonoscopy end of March as planned. GI signed off. Right perinephric hematoma Noted on last admission. CT abdomen showed spontaneous hemorrhage involving the right mid pole kidney measuring 6.5 cm in size. Repeat CT showed increasing size to 8.5 cm. Appreciate urology consult. - continue to hold Coumadin. Defer to urology and hematology in regards to resuming anticoagulation. The pt is not sure he wants to resume anticoagulation. - follow CBC, if hgb decreases may consider IR embolization. Stable. Renal ultrasound was ordered and as described above, there was enlargement of perinephric hematoma but no signs of obstructive uropathy. there is diffuse bladder wall thickening with enlarged prostate and associated mass effect at the base of the bladder. 03/08 Urology reconsulted by nephrology given that renal function is not improving. Urology recommendations pending. HCAP CXR with bilateral mild infiltrates. Recently hospitalized. - start IV vancomycin and Zosyn 03/05. - oxygen and nebs as needed. - sputum culture and gram stain, blood cultures. - incentive spirometry. - PT. 03/07 DC IV Vancomycin and IV zosyn. Will start on oral doxycycline. Bladder Stone/ UTI CT abdomen showed bladder stone measuring 1.61cm on last admit. UA indicative of infection. - White in place. - Follow up with urology. - antibiotics. 03/07 urine culture concomitant with contamination. ASUNCION on Chronic Kidney Disease stage 3 - Avoid nephrotoxins. - Strict ins and outs. - start IVFs and monitor. 03/06 Worsening creatinine from 1.4 from admission to 1.9. Nephrology consult. Will start on IV fluids as per nephrology recommendations. started on NS with sodium bicarbonate as per nephrology. Continue to monitor BUN and creatinine and BMP for resolution of acidosis. 03/07 Creatinine Trending up. Nephrology following. Will increase the rate of IV fluids to 100 ml/hr. 03/08 Urology reconsulted due to enlarging perinephric hematoma and no response after IV fluids. Hyperchloremic metabolic acidosis 03/07 due to diarrhea. C diff PCR negative. Will start patient on immodium and Lactobacillus acidophilus. 03/08 sodium improving. Increase the rate of IV fluids to 125 MLS per hour. Atrial fibrillation/ V tach On chronic anticoagulation with Coumadin. INR is 1.2. The patient has been having problems with bleeding. The pt had a run of V tach vs A fib with aberrancy 03/02. - Will hold Coumadin and follow up with hematology. - telemetry. - increased Coreg to 6.25 mg BID. 03/06 Rate controlled, no reported events of V tach. Diabetes Mellitus With neuropathy and retinopathy. 03/06 Blood sugars stable. Continue SSI and continue to monitor accuchecks. Hypocalcemia Calcium level improved. Replaced with IV Calcium chloride. Continue to monitor calcium levels. Likely decreased secondary to decreased oral intake. Hypomagnesemia Status post replacement with IV magnesium sulfate. Continue to monitor magnesium levels. Given that patient had episode of V. tach. Magnesium should be closer to 2. 03/07 Magnesium level 1.9 Continue to monitor. Diarrhea Patient c/o watery diarrhea which she says has had for a long time. Diarrhea is watery. C diff test oredered and negative. Will reconsult GI. Patient has been started on lactobacillus Acidophilus and loperamide as needed which I will continue but schedule loperamide administration. I will also check stool studies for ova and parasites, enteric pathogens, Giardia antigen. I will also check HIV. Tobacco Use - Patient counseled on cessation. DVT prophylaxis- chemical prophylaxis contraindicated at this time secondary to active bleeding Discharge Planning Pending improvement of creatinine, resolution of acidosis, nephrology clearance. Problem Qualifiers (1) Diarrhea: Qualified Codes: R19.7 - Diarrhea, unspecified French Elliott MD Mar 08, 2017 17:37
--- NOTE | 2017-03-08 19:36 | HHI.NPPN ---
Subjective History of Present Illness 71-year-old with peripheral vascular disease and right perinephric hematoma which is enlarging patient has developed acute renal failure and has hyperchloremic metabolic acidosis Review of Systems General Constitutional: Fatigue Objective Data Data 03/08/17 03/09/17 19:00 07:00 Intake Total 720 ml Output Total 1000 ml Balance -280 ml Intake Oral 720 ml Output Urine Total 1000 ml # Bowel Movements 3 Vital Signs Date Time Temp Pulse Resp B/P (MAP) Pulse Ox O2 Delivery O2 Flow Rate FiO2 03/08/17 16:12 97.8 64 18 121/60 (80) 95 03/08/17 12:27 98.0 59 18 99/56 (70) 92 03/08/17 08:17 98.8 65 19 107/57 (74) 93 03/08/17 08:00 Room Air 03/08/17 04:56 98.1 63 18 113/56 (75) 91 03/08/17 04:00 62 03/08/17 04:00 Room Air 03/08/17 00:00 Room Air 03/08/17 00:00 61 03/07/17 23:27 97.7 63 18 105/54 (71) 92 03/07/17 20:10 97.7 63 20 108/54 (72) 93 03/07/17 20:00 58 03/07/17 20:00 Room Air -: 03/08/17 0632 03/08/17 0632 Physical Exam General Appearance: Well Developed Neck Neck Exam: Neck Supple Pulmonary Resp Exam: Decreased Bases Cardiology CV Exam: Irregular Gastrointestinal/Abdomen GI Exam: Soft, Non-Tender, Bowel Sounds Present Extremeties Extremities Exam: No Edema Assessment/Plan Problem List: (1) Acute renal failure ICD Codes: N17.9 - Acute kidney failure, unspecified Status: Acute Plan: Patient is having diarrhea and is also showing hypochloremic non-anion gap acidosis Has a right renal hematoma urology which is enlarging worsening renal failure discussed with Dr. Anderson urology is essential to do angiogram and if they can find a bleeding then embolize There is a risk of acute renal failure but he is getting IV hydration Creatinine is slowly rising He has a far not responded to IV hydration (2) CKD (chronic kidney disease) stage 3, GFR 30-59 ml/min ICD Codes: N18.3 - Chronic kidney disease, stage 3 (moderate) Plan: Monitor output (3) Anemia ICD Codes: D64.9 - Anemia, unspecified Status: Acute Plan: Hematology is following and he has right renal hematoma (4) Atrial fibrillation with RVR ICD Codes: I48.91 - Unspecified atrial fibrillation Status: Acute (5) DM (diabetes mellitus) ICD Codes: E11.9 - DM (diabetes mellitus) Status: Chronic (6) HTN (hypertension) ICD Codes: I10 - HTN (hypertension) Status: Chronic Cecilio Howard MD Mar 08, 2017 19:36
[2017-03-09] VITALS (14 sets, daily range): BP systolic 114–141; BP diastolic 51–66; PULSE 56–78; RESP 16–22; TEMP 97.6–98.3; O2SAT 93–97
[2017-03-09] MEDS: LOPERAMIDE HCL 2 MG CAP PO PRN ×3 (01:30→20:22)
[2017-03-09] MEDS: SODIUM BICARBONATE 8.4% INJ 100 MEQ in SODIUM CHLOR 0.45% 1000 ML INJ 1,000 ML IV SCH (03:48)
[2017-03-09] MEDS: INSULIN ASPART SUPPLEMENTAL SCALE SQ SCH ×4 (08:00→21:00)
[2017-03-09 08:44] LABS: HEMATOCRIT 28.9 % (39.0-51.0); MEAN CORPUSCULAR HEMOGLOBIN 29.4 PG (27.0-34.0); MEAN CORPUSCULAR HGB CONC 33.1 % (32.0-36.0); PLATELET COUNT 150 TH/MM3 (150-450); RED BLOOD COUNT 3.25 MIL/MM3 (4.50-5.90); RED CELL DISTRIBUTION WIDTH 16.3 % (11.6-17.2); REVIEW FLAG FINAL; WHITE BLOOD COUNT 9.9 TH/MM3 (4.0-11.0)
[2017-03-09] MEDS: SODIUM CHLORIDE 0.9% FLUSH 10 ML FLUSH IV FLUSH SCH ×2 (09:00→20:23)
[2017-03-09] MEDS: DOCUSATE SODIUM 50 MG/SENNA 8.6 MG TAB PO SCH ×2 (09:00→20:23)
[2017-03-09] MEDS: DOXYCYCLINE HYCLATE 100 MG CAP PO SCH ×2 (09:00→20:21)
[2017-03-09] MEDS: PANTOPRAZOLE SODIUM 40 MG VIAL IV PUSH SCH (09:00)
[2017-03-09] MEDS: CHOLECALCIFEROL (VIT D3) 5000 UNIT CAP PO SCH (09:00)
[2017-03-09] MEDS ORDERED: MIDAZOLAM HCL 2 MG/2 ML VIAL ONE (09:07)
[2017-03-09 09:20] LABS: ALKALINE PHOSPHATASE 117 U/L (45-117); ALT (GPT) LESS THAN 6 U/L (12-78); ANION GAP 11 MEQ/L (5-15); AST (GOT) 11 U/L (15-37); BICARBONATE 19.9 MEQ/L (21.0-32.0); BLOOD UREA NITROGEN 51 MG/DL (7-18); CALCIUM-PROTEIN CORRECTED 8.7 MG/DL (8.5-10.1); CHLORIDE 118 MEQ/L (98-107); GLOMERULAR FILTRATION RATE 30 ML/MIN (>89); MAGNESIUM 1.8 MG/DL (1.5-2.5); POTASSIUM 3.8 MEQ/L (3.5-5.1); SODIUM (NA) 149 MEQ/L (136-145); TOTAL BILIRUBIN ADULT 0.2 MG/DL (0.2-1.0)
--- NOTE | 2017-03-09 09:33 | PD.PN.STU ---
Subjective Remarks Still c/o watery diarrhea. No fever or chills. Stool studies were (-) C. diff, ( -) eosinophils, few WBCs. Awaiting HIV serology. Patient also complains of severe fatigue, Hb 9.1. Denies chest pain, SOB, nausea, or vomiting. Scheduled to been seen by IR for possible embolization of bleeding source. Objective Vitals Vital Signs Date Time Temp Pulse Resp B/P (MAP) Pulse Ox O2 Delivery O2 Flow Rate FiO2 03/09/17 05:15 72 03/09/17 04:00 98.0 68 20 119/59 (79) 93 03/09/17 00:01 73 03/09/17 00:00 98.2 72 22 117/65 (82) 96 03/08/17 21:00 62 03/08/17 20:00 97.6 66 19 115/58 (77) 94 03/08/17 16:12 97.8 64 18 121/60 (80) 95 03/08/17 12:27 98.0 59 18 99/56 (70) 92 I/O 03/08/17 03/08/17 03/08/17 03/09/17 03/09/17 03/09/17 07:00 15:00 23:00 07:00 15:00 23:00 Intake Total 1760 ml 720 ml 1261 ml Output Total 400 ml 1000 ml 1200 ml Balance 1360 ml -280 ml 61 ml Intake Oral 360 ml 720 ml 0 ml IV Total 1400 ml 1261 ml Output Urine Total 400 ml 1000 ml 1200 ml # Bowel Movements 3 4 5 Result Diagram: 03/09/17 0733 03/09/17 0733 Objective Remarks Awake, alert, and oriented x3, found lying in bed comfortably, in no apparent distress. Positive bowel sounds in all 4 quadrants. Abdomen mildly distended, nontender to palpation. No abdominal masses. No hepatomegaly or splenomegaly. Lungs clear to auscultation at all levels bilaterally. No clubbing, cyanosis, or edema of extremities. A/P Assessment and Plan Acute Blood loss Anemia. Possibly s/t GI bleed vs renal hemorrhage. From the last hospitalization hemoglobin is relatively stable. In January hemoglobin was 8.4 and now is 7.7. Patient does not have any gross bleeding. He does have a positive Hemoccult done in the ED. Patient is also on chronic anticoagulation with Coumadin. S/p 4 units red blood cells. Hemoglobin currently stable. GI and hematology consulted and recommendations appreciated. - Will hold Coumadin for now. Possibly resume at lower dose on discharge. Follow up with hematology. - Protonix. - follow CBC and transfuse as needed. Stable. - Rpt. Colonoscopy end of March as planned. GI signed off. Right perinephric hematoma Noted on last admission. CT abdomen showed spontaneous hemorrhage involving the right mid pole kidney measuring 6.5 cm in size. Repeat CT showed increasing size to 8.5 cm. Appreciate urology consult. - continue to hold Coumadin. Defer to urology and hematology in regards to resuming anticoagulation. The pt is not sure he wants to resume anticoagulation. - follow CBC, if hgb decreases may consider IR embolization. Stable. 03/06 Ordered renal ultrasound as described above, there is enlargement of perinephric hematoma but no signs of obstructive uropahty. there is diffuse bladder wall thickening with nelarged prostate and associated mass effect at the base of the bladder. HCAP CXR with bilateral mild infiltrates. Recently hospitalized. - start IV vancomycin and Zosyn 03/05. - oxygen and nebs as needed. - sputum culture and gram stain, blood cultures. - incentive spirometry. - PT. 03/07 DC IV Vancomycin and IV zosyn. Will start on oral doxycycline. Bladder Stone/ UTI CT abdomen showed bladder stone measuring 1.61cm on last admit. UA indicative of infection. - White in place. - Follow up with urology. - antibiotics. 03/07 urine culture concomitant with contamination. ASUNCION on Chronic Kidney Disease stage 3 - Avoid nephrotoxins. - Strict ins and outs. - start IVFs and monitor. 03/06 Worsening creatinine from 1.4 from admission to 1.9. Nephrology consult. Will start on IV fluids as per nephrology recommendations. started on NS with sodium bicarbonate as per nephrology. Continue to monitor BUN and creatinine and BMP for resolution of acidosis. 03/07 Creatinine Trending up. Nephrology following. Will increase the rate of IV fluids to 100 ml/hr. Hyperchloremic metabolic acidosis 03/07 due to diarrhea. C diff PCR negative. Will start patient on immodium and Lactobacillus acidophilus. Atrial fibrillation/ V tach On chronic anticoagulation with Coumadin. INR is 1.2. The patient has been having problems with bleeding. The pt had a run of V tach vs A fib with aberrancy 03/02. - Will hold Coumadin and follow up with hematology. - telemetry. - increased Coreg to 6.25 mg BID. 03/06 Rate controlled, no reported events of V tach. Diabetes Mellitus With neuropathy and retinopathy. 03/06 Blood sugars stable. Continue SSI and continue to monitor accuchecks. Hypocalcemia 03/07 Calcium level improved. Replaced with IV Calcium chloride. Continue to monitor calcium levels. Likely decreased secondary to decreased oral intake. Hypomagnesemia Will replace with IV magnesium sulfate. Continue to monitor magnesium levels. Given that patient had episode of V. tach. Magnesium should be closer to 2. 03/07 Magnesium level 1.9 Continue to monitor. Tobacco Use - Patient counseled on cessation. DVT prophylaxis- chemical prophylaxis contraindicated at this time secondary to active bleeding Sharda Zimmerman M3 Mar 09, 2017 09:33
[2017-03-09] MEDS ORDERED: ceFAZolin 2 GM PREMIX 50 ML ONE (10:29)
--- NOTE | 2017-03-09 11:24 | PD.RAD ---
Post Procedure Progress Note Pre Procedure Diagnosis: (1) Perinephric hematoma Post Procedure Diagnosis: (1) Perinephric hematoma Procedure Date: Mar 09, 2017 Supervising Radiologist: Brodie Boyce Estimated blood loss: 3cc Anesthesia: Local, Conscious Sedation Plan of Activity Patient to Unit: ROPU Patient Condition: Fair Additional Comments: Pt. S/P right renal angio. Small tangle of abnormal vessels identified along the renal cortex. successful subselective embolization of the branch feeding this vessel. Full dictated report to follow. See PACS Report for procedural detail/treatment Brodie Boyce MD Mar 09, 2017 11:24
[2017-03-09] MEDS ORDERED: IODIXANOL 320 MG/ML 50 ML VIAL (for RAD SPEC) I-ARTERIAL ONE (11:47)
[2017-03-09] MEDS ORDERED: GELATIN 12 MM/7 MM FOAM I-ARTERIAL ONE (11:47)
[2017-03-09] MEDS: hydrALAZINE HCL 10 MG TAB PO SCH ×3 (13:00→17:18)
[2017-03-09] MEDS: LACTOBACILLUS ACIDOPHILUS TAB PO SCH ×3 (13:00→17:18)
[2017-03-09] MEDS: CALCIUM/VITAMIN D 250 MG/125 U TAB PO SCH ×2 (14:17→20:21)
[2017-03-09] MEDS: FERROUS SULFATE 325 MG (65 MG ELEMENTAL IRON) TAB PO SCH (14:17)
[2017-03-09] MEDS: CARVEDILOL 6.25 MG TAB PO SCH ×2 (14:17→20:21)
[2017-03-09] MEDS: CALCITRIOL 0.25 MCG CAP PO SCH (14:17)
[2017-03-09] MEDS: PRAVASTATIN SOD 40 MG TAB PO SCH (14:17)
[2017-03-09] MEDS: LOSARTAN 25 MG TAB PO SCH (14:18)
--- NOTE | 2017-03-09 16:02 | HHI.NPPN ---
Subjective History of Present Illness 71-year-old with peripheral vascular disease and right perinephric hematoma which is enlarging patient has developed acute renal failure and has hyperchloremic metabolic acidosis Review of Systems General Constitutional: Fatigue Objective Data Data Vital Signs Date Time Temp Pulse Resp B/P (MAP) Pulse Ox O2 Delivery O2 Flow Rate FiO2 03/09/17 13:23 59 20 118/56 (76) 95 03/09/17 12:55 59 20 120/55 (76) 95 03/09/17 12:25 59 20 114/54 (74) 96 03/09/17 12:10 63 20 117/56 (76) 95 03/09/17 11:55 56 20 114/51 (72) 95 03/09/17 11:40 97.6 67 16 116/57 (76) 97 03/09/17 08:00 97.7 78 20 141/64 (89) 95 03/09/17 07:20 Room Air 03/09/17 05:15 72 03/09/17 04:00 98.0 68 20 119/59 (79) 93 03/09/17 00:01 73 03/09/17 00:00 98.2 72 22 117/65 (82) 96 03/08/17 21:00 62 03/08/17 20:00 97.6 66 19 115/58 (77) 94 03/08/17 16:12 97.8 64 18 121/60 (80) 95 -: 03/09/17 0733 03/09/17 0733 Microbiology 03/08/17 Stool Pus (CHRISTO) - Final, Complete FEW WBC'S Physical Exam General Appearance: Well Developed Neck Neck Exam: Neck Supple Pulmonary Resp Exam: Decreased Bases Cardiology CV Exam: Irregular Gastrointestinal/Abdomen GI Exam: Soft, Non-Tender, Bowel Sounds Present Extremeties Extremities Exam: No Edema Assessment/Plan Problem List: (1) Acute renal failure ICD Codes: N17.9 - Acute kidney failure, unspecified Status: Acute Plan: Patient had abnormal circulation right kidney embolization was done he has right renal hematoma Creatinine is declining Monitor BMP (2) CKD (chronic kidney disease) stage 3, GFR 30-59 ml/min ICD Codes: N18.3 - Chronic kidney disease, stage 3 (moderate) Plan: Monitor output (3) Anemia ICD Codes: D64.9 - Anemia, unspecified Status: Acute Plan: Hematology is following and he has right renal hematoma (4) Atrial fibrillation with RVR ICD Codes: I48.91 - Unspecified atrial fibrillation Status: Acute (5) DM (diabetes mellitus) ICD Codes: E11.9 - DM (diabetes mellitus) Status: Chronic (6) HTN (hypertension) ICD Codes: I10 - HTN (hypertension) Status: Chronic Cecilio Howard MD Mar 09, 2017 16:02
--- NOTE | 2017-03-09 17:09 | HHI.PR ---
Subjective Remarks The patient still complaining of persistent diarrhea, denies abdominal pain, nausea vomiting. States however that diarrhea is improving and stool is slightly more formed. The patient status post IR embolization of perinephric hematoma. Patient is afebrile with stable vital signs. Objective Vitals Vital Signs Date Time Temp Pulse Resp B/P (MAP) Pulse Ox O2 Delivery O2 Flow Rate FiO2 03/09/17 13:23 59 20 118/56 (76) 95 03/09/17 12:55 59 20 120/55 (76) 95 03/09/17 12:25 59 20 114/54 (74) 96 03/09/17 12:10 63 20 117/56 (76) 95 03/09/17 11:55 56 20 114/51 (72) 95 03/09/17 11:40 97.6 67 16 116/57 (76) 97 03/09/17 08:00 97.7 78 20 141/64 (89) 95 03/09/17 07:20 Room Air 03/09/17 05:15 72 03/09/17 04:00 98.0 68 20 119/59 (79) 93 03/09/17 00:01 73 03/09/17 00:00 98.2 72 22 117/65 (82) 96 03/08/17 21:00 62 03/08/17 20:00 97.6 66 19 115/58 (77) 94 I/O 03/08/17 03/08/17 03/08/17 03/09/17 03/09/17 03/09/17 07:00 15:00 23:00 07:00 15:00 23:00 Intake Total 1760 ml 720 ml 1261 ml Output Total 400 ml 1000 ml 1200 ml Balance 1360 ml -280 ml 61 ml Intake Oral 360 ml 720 ml 0 ml IV Total 1400 ml 1261 ml Output Urine Total 400 ml 1000 ml 1200 ml # Bowel Movements 3 4 5 Result Diagram: 03/09/17 0733 03/09/17 0733 Imaging Last Impressions Renal Ultrasound 03/06/17 0000 Signed Impressions: Service Date/Time: Monday, March 06, 2017 13:01 - CONCLUSION: 1. Subtle interval enlargement of posterior right perinephric hematoma now measuring 11.2 x 7.8 x 7.9 cm in comparison to 11.0 x 8.5 x 5.8 cm on 03/01/17 CT exam. 2. No evidence for obstructive uropathy. 3. Multiple stable bilateral renal cysts similar to recent CT exam, as above. 4. Redemonstration of 2.2 x 0.4 x 2.3 cm bladder calculus. 5. Diffuse bladder wall thickening with enlarged prostate and associated mass effect at the base of the bladder. This may reflect some degree of bladder outlet obstruction. Clifford Sanchez MD Chest X-Ray 03/04/17 0000 Signed Impressions: Service Date/Time: Saturday, March 04, 2017 14:51 - CONCLUSION: Mild patchy infiltrates in the infrahilar lungs bilaterally. Blaze Marshall MD Abdomen/Pelvis CT 03/01/17 0000 Signed Impressions: Service Date/Time: February 14:01 - CONCLUSION: 1. Interval increase in the size of the right perirenal hematoma, now measuring 8.5 cm. 2. Other findings are stable compared to prior CT. Blaze Marshall MD Objective Remarks AAOx3 Clear lungs abdomen mildly distended, non tender to palpation, (+) bowel sounds. No edema in lower extremities Medications and IVs Current Medications Medications (Trade) Dose Ordered Sig/Ana Route Start Time Stop Time Status Last Admin (NS Flush) 2 ml UNSCH PRN IV FLUSH 02/28/17 10:00 03/01/17 02:10 (NS Flush) 2 ml BID IV FLUSH 02/28/17 21:00 03/08/17 20:59 (Zofran Inj) 4 mg Q6H PRN IVP 02/28/17 10:00 (Narcan Inj) 0.4 mg UNSCH PRN IV PUSH 02/28/17 10:00 (Valerie-Colace) 1 tab BID PO 02/28/17 21:00 03/07/17 08:23 (Milk Of Magnesia Liq) 30 ml Q12H PRN PO 02/28/17 10:00 (Senokot) 17.2 mg Q12H PRN PO 02/28/17 10:00 (Dulcolax Supp) 10 mg DAILY PRN RECTAL 02/28/17 10:00 (Lactulose Liq) 30 ml DAILY PRN PO 02/28/17 10:00 (D50w (Vial) Inj) 50 ml UNSCH PRN IV PUSH 02/28/17 12:15 (Glucagon Inj) 1 mg UNSCH PRN OTHER 02/28/17 12:15 (NovoLOG SUPPLEMENTAL SCALE) 1 ACHS SLIDING SCALE SQ 02/28/17 17:00 03/08/17 18:26 (Protonix Inj) 40 mg DAILY IV PUSH 02/28/17 12:15 03/09/17 09:00 (Rocaltrol) 0.5 mcg DAILY PO 03/01/17 09:00 03/09/17 14:17 (Oscal-D 250-125) 500 mg Q12HR PO 02/28/17 21:00 03/09/17 14:17 (Vitamin D3) 5,000 units DAILY PO 03/01/17 09:00 03/09/17 09:00 (Ferrous Sulfate) 325 mg DAILY PO 03/01/17 09:00 03/09/17 14:17 (Apresoline) 10 mg TID PO 02/28/17 13:00 03/09/17 13:00 (Cozaar) 25 mg DAILY PO 03/01/17 09:00 03/09/17 14:18 (Pravachol) 40 mg DAILY PO 03/01/17 09:00 03/09/17 14:17 (Tylenol) 500 mg Q6H PRN PO 03/01/17 21:45 (Coreg) 6.25 mg Q12HR PO 03/02/17 21:00 03/09/17 14:17 (Roxicodone) 5 mg Q4H PRN PO 03/02/17 12:00 03/08/17 20:58 (Duoneb Neb) 1 ampule Q2HR NEB PRN NEB 03/05/17 11:00 Sodium Bicarbonate 100 meq/Sodium Chloride 1,100 ml @ 125 mls/hr Q8H48M IV 03/06/17 17:00 03/09/17 03:48 (Lactinex) 1 tab TID PO 03/07/17 13:00 03/09/17 13:00 (Imodium) 2 mg Q4H PRN PO 03/07/17 10:30 03/09/17 05:30 (Vibramycin) 100 mg BID PO 03/07/17 21:00 03/09/17 09:00 Urinary Catheter: No Vascular Central Line Catheter: No A/P Problem List: (1) Acute blood loss anemia ICD Code: D62 - Acute posthemorrhagic anemia Status: Resolved (2) GI bleed ICD Code: K92.2 - Gastrointestinal hemorrhage, unspecified Status: Resolved (3) Perinephric hematoma ICD Code: S37.019A - Minor contusion of unspecified kidney, initial encounter Status: Acute (4) HCAP (healthcare-associated pneumonia) ICD Code: J18.9 - Pneumonia, unspecified organism (5) CKD (chronic kidney disease) stage 3, GFR 30-59 ml/min ICD Code: N18.3 - Chronic kidney disease, stage 3 (moderate) (6) ASUNCION (acute kidney injury) ICD Code: N17.9 - Acute kidney failure, unspecified Status: Acute (7) HTN (hypertension) ICD Code: I10 - HTN (hypertension) Status: Chronic (8) Diarrhea ICD Code: R19.7 - Diarrhea, unspecified Status: Acute Assessment and Plan Acute Blood loss Anemia. Possibly s/t GI bleed vs renal hemorrhage. From the last hospitalization hemoglobin is relatively stable. In January hemoglobin was 8.4 and now is 7.7. Patient does not have any gross bleeding. He does have a positive Hemoccult done in the ED. Patient is also on chronic anticoagulation with Coumadin. S/p 4 units red blood cells. Hemoglobin currently stable. GI and hematology consulted and recommendations appreciated. - Will hold Coumadin for now. Possibly resume at lower dose on discharge. Follow up with hematology. - Protonix. - follow CBC and transfuse as needed. Stable. - Rpt. Colonoscopy end of March as planned. GI signed off. Right perinephric hematoma Noted on last admission. CT abdomen showed spontaneous hemorrhage involving the right mid pole kidney measuring 6.5 cm in size. Repeat CT showed increasing size to 8.5 cm. Appreciate urology consult. - continue to hold Coumadin. Defer to urology and hematology in regards to resuming anticoagulation. The pt is not sure he wants to resume anticoagulation. - follow CBC, if hgb decreases may consider IR embolization. Stable. Renal ultrasound was ordered and as described above, there was enlargement of perinephric hematoma but no signs of obstructive uropathy. there is diffuse bladder wall thickening with enlarged prostate and associated mass effect at the base of the bladder. 03/08 Urology reconsulted by nephrology given that renal function is not improving. Urology recommendations pending. 03/09 the patient is status post IR embolization. Continue to monitor CBC. HCAP CXR with bilateral mild infiltrates. The patient was recently hospitalized. The patient was initially started on IV vancomycin and IV Zosyn on 03/05/17. Patient also was treated with supplemental oxygen and DuoNeb's as needed. Blood cultures obtained and negative. Patient also treated with incentive spirometry which will be continued. Posteriorly on March 07 IV vancomycin and IV Zosyn were discontinued and the patient was started on oral doxycycline. Bladder Stone/ UTI CT abdomen showed bladder stone measuring 1.61cm on last admit. UA indicative of infection. White catheter was placed and urology consulted. However, urine culture was concomitant with contamination. ASUNCION on Chronic Kidney Disease stage 3 - Avoid nephrotoxins. - Strict ins and outs. - start IVFs and monitor. 03/06 Worsening creatinine from 1.4 from admission to 1.9. Nephrology consult. Will start on IV fluids as per nephrology recommendations. started on NS with sodium bicarbonate as per nephrology. Continue to monitor BUN and creatinine and BMP for resolution of acidosis. 03/07 Creatinine Trending up. Nephrology following. Will increase the rate of IV fluids to 100 ml/hr. 03/08 Urology reconsulted due to enlarging perinephric hematoma and no response after IV fluids. 03/09 creatinine now slightly improved. Continue IV fluids as per nephrology recommendations. Hyperchloremic metabolic acidosis Likely secondary to diarrhea. C. difficile checked and negative. The patient was started on Imodium as needed as well as Lactobacillus acidophilus scheduled. Continue IV fluids, carbon dioxide trending up. Patient currently on half- normal saline with sodium bicarbonate. Atrial fibrillation/ V tach On chronic anticoagulation with Coumadin. INR is 1.2. The patient has been having problems with bleeding. The pt had a run of V tach vs A fib with aberrancy 03/02. - Will hold Coumadin and follow up with hematology. - telemetry. - increased Coreg to 6.25 mg BID. 03/06 Rate controlled, no reported events of V tach. Diabetes Mellitus With neuropathy and retinopathy. 03/06 Blood sugars stable. Continue SSI and continue to monitor accuchecks. Hypocalcemia Calcium level improved. Replaced with IV Calcium chloride. Continue to monitor calcium levels. Likely decreased secondary to decreased oral intake. Hypomagnesemia Status post replacement with IV magnesium sulfate. Continue to monitor magnesium levels. Given that patient had episode of V. tach. Magnesium should be closer to 2. 03/07 Magnesium level 1.9 Continue to monitor. Diarrhea Patient c/o watery diarrhea which she says has had for a long time. Diarrhea is watery. C diff test oredered and negative. Will reconsult GI. Patient has been started on lactobacillus Acidophilus and loperamide as needed which I will continue but schedule loperamide administration. Stool for one parasites and enteric pathogens were ordered, however lab canceled the order is is as per laboratory policy. HIV 1 and 2 antibody negative. I suspect that the patient's diarrhea is functional. Tobacco Use - Patient counseled on cessation. DVT prophylaxis- chemical prophylaxis contraindicated at this time secondary to active bleeding Discharge Planning Pending improvement of creatinine, resolution of acidosis, nephrology clearance. Problem Qualifiers (1) Diarrhea: Qualified Codes: R19.7 - Diarrhea, unspecified French Elliott MD Mar 09, 2017 17:09
--- NOTE | 2017-03-09 19:26 | HHI.PR ---
Subjective Patient symptoms today Successful Embolization by IR of the renal hematoma. Patient doing well, no pain. no fevers. Continues with Diarrhea. Objective Vital Signs Vital Signs Date Time Temp Pulse Resp B/P (MAP) Pulse Ox O2 Delivery O2 Flow Rate FiO2 03/09/17 16:00 98.3 63 20 122/56 (78) 97 03/09/17 13:23 59 20 118/56 (76) 95 03/09/17 12:55 59 20 120/55 (76) 95 03/09/17 12:25 59 20 114/54 (74) 96 03/09/17 12:10 63 20 117/56 (76) 95 03/09/17 11:55 56 20 114/51 (72) 95 03/09/17 11:40 97.6 67 16 116/57 (76) 97 03/09/17 08:00 97.7 78 20 141/64 (89) 95 03/09/17 07:20 Room Air 03/09/17 05:15 72 03/09/17 04:00 98.0 68 20 119/59 (79) 93 03/09/17 00:01 73 03/09/17 00:00 98.2 72 22 117/65 (82) 96 03/08/17 21:00 62 03/08/17 20:00 97.6 66 19 115/58 (77) 94 Result Diagram: 03/09/1773203/09/17732 Objective Remarks NAD, AAOx3 Resp NL Ab S/NT/ND White with clear yellow urine Medications and IVs Current Medications Medications (Trade) Dose Ordered Sig/Ana Route Start Time Stop Time Status Last Admin (NS Flush) 2 ml UNSCH PRN IV FLUSH 02/28/17 10:00 03/01/17 02:10 (NS Flush) 2 ml BID IV FLUSH 02/28/17 21:00 03/08/17 20:59 (Zofran Inj) 4 mg Q6H PRN IVP 02/28/17 10:00 (Narcan Inj) 0.4 mg UNSCH PRN IV PUSH 02/28/17 10:00 (Valerie-Colace) 1 tab BID PO 02/28/17 21:00 03/07/17 08:23 (Milk Of Magnesia Liq) 30 ml Q12H PRN PO 02/28/17 10:00 (Senokot) 17.2 mg Q12H PRN PO 02/28/17 10:00 (Dulcolax Supp) 10 mg DAILY PRN RECTAL 02/28/17 10:00 (Lactulose Liq) 30 ml DAILY PRN PO 02/28/17 10:00 (D50w (Vial) Inj) 50 ml UNSCH PRN IV PUSH 02/28/17 12:15 (Glucagon Inj) 1 mg UNSCH PRN OTHER 02/28/17 12:15 (NovoLOG SUPPLEMENTAL SCALE) 1 ACHS SLIDING SCALE SQ 02/28/17 17:00 03/08/17 18:26 (Protonix Inj) 40 mg DAILY IV PUSH 02/28/17 12:15 03/09/17 09:00 (Rocaltrol) 0.5 mcg DAILY PO 03/01/17 09:00 03/09/17 14:17 (Oscal-D 250-125) 500 mg Q12HR PO 02/28/17 21:00 03/09/17 14:17 (Vitamin D3) 5,000 units DAILY PO 03/01/17 09:00 03/09/17 09:00 (Ferrous Sulfate) 325 mg DAILY PO 03/01/17 09:00 03/09/17 14:17 (Apresoline) 10 mg TID PO 02/28/17 13:00 03/09/17 17:18 (Cozaar) 25 mg DAILY PO 03/01/17 09:00 03/09/17 14:18 (Pravachol) 40 mg DAILY PO 03/01/17 09:00 03/09/17 14:17 (Tylenol) 500 mg Q6H PRN PO 03/01/17 21:45 (Coreg) 6.25 mg Q12HR PO 03/02/17 21:00 03/09/17 14:17 (Roxicodone) 5 mg Q4H PRN PO 03/02/17 12:00 03/08/17 20:58 (Duoneb Neb) 1 ampule Q2HR NEB PRN NEB 03/05/17 11:00 Sodium Bicarbonate 100 meq/Sodium Chloride 1,100 ml @ 125 mls/hr Q8H48M IV 03/06/17 17:00 03/09/17 03:48 (Lactinex) 1 tab TID PO 03/07/17 13:00 03/09/17 17:18 (Imodium) 2 mg Q4H PRN PO 03/07/17 10:30 03/09/17 05:30 (Vibramycin) 100 mg BID PO 03/07/17 21:00 03/09/17 09:00 Sodium Chloride 38.5 meq/Sodium Bicarbonate 100 meq/Sterile Water 1,109.625 ml @ 125 mls/hr Q8H53M IV 03/09/17 20:00 Assessment and Plan Problem List: (1) Renal hemorrhage, right ICD Code: N28.89 - Other specified disorders of kidney and ureter (2) ASUNCION (acute kidney injury) ICD Code: N17.9 - Acute kidney failure, unspecified Status: Acute (3) Anemia ICD Code: D64.9 - Anemia, unspecified Status: Acute Assessment and Plan -IR embolization of the right renal hematoma completed today -Continue to monitor Hgb and Cr -Will follow. No other urological intervention indicated at this time Yosef Schroeder MD Mar 09, 2017 19:26
[2017-03-09] MEDS: SODIUM CHLORIDE 23.4% INJ 38.5 MEQ, SODIUM BICARBONATE 8.4% INJ 100 MEQ in WATER STERIL... IV SCH (20:22)
[2017-03-10] VITALS: BP 126/64; PULSE 61; PULSE 64; RESP 20; TEMP 98.1; O2SAT 93
[2017-03-10] MEDS: SODIUM BICARBONATE 8.4% INJ 100 MEQ in SODIUM CHLOR 0.45% 1000 ML INJ 1,000 ML IV SCH ×2 (02:03→10:51)
[2017-03-10 04:00] VITALS: BP 138/68; PULSE 57; PULSE 68; RESP 19; TEMP 98; O2SAT 94
[2017-03-10] MEDS: SODIUM CHLORIDE 23.4% INJ 38.5 MEQ, SODIUM BICARBONATE 8.4% INJ 100 MEQ in WATER STERIL... IV SCH ×2 (04:29→13:58)
[2017-03-10 07:30] LABS: HEMATOCRIT 27.9 % (39.0-51.0); MEAN CELL VOLUME 88.4 FL (80.0-100.0); MEAN CORPUSCULAR HGB CONC 32.8 % (32.0-36.0); PLATELET COUNT 160 TH/MM3 (150-450); RED BLOOD COUNT 3.15 MIL/MM3 (4.50-5.90); RED CELL DISTRIBUTION WIDTH 16.5 % (11.6-17.2); REVIEW FLAG FINAL; WHITE BLOOD COUNT 10.3 TH/MM3 (4.0-11.0)
[2017-03-10 07:54] LABS: BICARBONATE 23.9 MEQ/L (21.0-32.0); POTASSIUM 3.7 MEQ/L (3.5-5.1)
[2017-03-10 08:00] VITALS: BP 143/61; PULSE 62; RESP 20; TEMP 98.1; O2SAT 91
[2017-03-10] MEDS: INSULIN ASPART SUPPLEMENTAL SCALE SQ SCH ×4 (08:00→21:00)
[2017-03-10 08:25] LABS: CALCIUM-PROTEIN CORRECTED 8.7 MG/DL (8.5-10.1)
[2017-03-10] MEDS: SODIUM CHLORIDE 0.9% FLUSH 10 ML FLUSH IV FLUSH SCH ×2 (09:00→21:00)
[2017-03-10] MEDS: DOCUSATE SODIUM 50 MG/SENNA 8.6 MG TAB PO SCH ×2 (09:00→21:00)
[2017-03-10] MEDS: PANTOPRAZOLE SODIUM 40 MG VIAL IV PUSH SCH (09:58)
[2017-03-10] MEDS: CALCITRIOL 0.25 MCG CAP PO SCH (09:59)
[2017-03-10] MEDS: LOSARTAN 25 MG TAB PO SCH (09:59)
[2017-03-10] MEDS: CALCIUM/VITAMIN D 250 MG/125 U TAB PO SCH ×2 (09:59→22:02)
[2017-03-10] MEDS: CARVEDILOL 6.25 MG TAB PO SCH ×2 (09:59→21:00)
[2017-03-10] MEDS: PRAVASTATIN SOD 40 MG TAB PO SCH (10:00)
[2017-03-10] MEDS: LACTOBACILLUS ACIDOPHILUS TAB PO SCH ×3 (10:00→17:28)
[2017-03-10] MEDS: hydrALAZINE HCL 10 MG TAB PO SCH ×3 (10:00→17:28)
[2017-03-10] MEDS: CHOLECALCIFEROL (VIT D3) 5000 UNIT CAP PO SCH (10:00)
[2017-03-10] MEDS: FERROUS SULFATE 325 MG (65 MG ELEMENTAL IRON) TAB PO SCH (10:00)
[2017-03-10] MEDS: DOXYCYCLINE HYCLATE 100 MG CAP PO SCH ×2 (10:00→22:02)
[2017-03-10] MEDS: LOPERAMIDE HCL 2 MG CAP PO PRN ×2 (10:06→22:02)
[2017-03-10 12:00] VITALS: BP 123/59; PULSE 61; RESP 20; TEMP 98.7; O2SAT 95
--- NOTE | 2017-03-10 12:45 | HHI.PR ---
Objective Vital Signs Vital Signs Date Time Temp Pulse Resp B/P (MAP) Pulse Ox O2 Delivery O2 Flow Rate FiO2 03/10/17 08:00 98.1 62 20 143/61 (88) 91 03/10/17 04:00 Nasal Cannula 2.00 03/10/17 04:00 98.0 68 19 138/68 (91) 94 03/10/17 00:00 98.1 61 20 126/64 (84) 93 03/10/17 00:00 Nasal Cannula 2.00 03/09/17 20:20 Nasal Cannula 2.00 03/09/17 20:00 97.9 68 22 131/66 (87) 94 03/09/17 17:04 66 03/09/17 16:00 98.3 63 20 122/56 (78) 97 03/09/17 13:23 59 20 118/56 (76) 95 03/09/17 12:55 59 20 120/55 (76) 95 Intake & Output 03/10/17 03/10/17 07:00 19:00 Intake Total 2253 ml Output Total 800 ml Balance 1453 ml Intake Oral 560 ml IV Total 1693 ml Output Urine Total 800 ml # Bowel Movements 3 Result Diagram: 03/10/17 0709 03/10/17 0709 Objective Remarks NAD, AAOx3 Resp NL Ab S/NT/ND White with clear yellow urine Medications and IVs Current Medications Medications (Trade) Dose Ordered Sig/Ana Route Start Time Stop Time Status Last Admin (NS Flush) 2 ml UNSCH PRN IV FLUSH 02/28/17 10:00 03/01/17 02:10 (NS Flush) 2 ml BID IV FLUSH 02/28/17 21:00 03/09/17 20:23 (Zofran Inj) 4 mg Q6H PRN IVP 02/28/17 10:00 (Narcan Inj) 0.4 mg UNSCH PRN IV PUSH 02/28/17 10:00 (Valerie-Colace) 1 tab BID PO 02/28/17 21:00 03/07/17 08:23 (Milk Of Magnesia Liq) 30 ml Q12H PRN PO 02/28/17 10:00 (Senokot) 17.2 mg Q12H PRN PO 02/28/17 10:00 (Dulcolax Supp) 10 mg DAILY PRN RECTAL 02/28/17 10:00 (Lactulose Liq) 30 ml DAILY PRN PO 02/28/17 10:00 (D50w (Vial) Inj) 50 ml UNSCH PRN IV PUSH 02/28/17 12:15 (Glucagon Inj) 1 mg UNSCH PRN OTHER 02/28/17 12:15 (NovoLOG SUPPLEMENTAL SCALE) 1 ACHS SLIDING SCALE SQ 02/28/17 17:00 03/09/17 21:00 (Protonix Inj) 40 mg DAILY IV PUSH 02/28/17 12:15 03/10/17 09:58 (Rocaltrol) 0.5 mcg DAILY PO 03/01/17 09:00 03/10/17 09:59 (Oscal-D 250-125) 500 mg Q12HR PO 02/28/17 21:00 03/10/17 09:59 (Vitamin D3) 5,000 units DAILY PO 03/01/17 09:00 03/10/17 10:00 (Ferrous Sulfate) 325 mg DAILY PO 03/01/17 09:00 03/10/17 10:00 (Apresoline) 10 mg TID PO 02/28/17 13:00 03/10/17 10:00 (Cozaar) 25 mg DAILY PO 03/01/17 09:00 03/10/17 09:59 (Pravachol) 40 mg DAILY PO 03/01/17 09:00 03/10/17 10:00 (Tylenol) 500 mg Q6H PRN PO 03/01/17 21:45 (Coreg) 6.25 mg Q12HR PO 03/02/17 21:00 03/10/17 09:59 (Roxicodone) 5 mg Q4H PRN PO 03/02/17 12:00 03/10/17 09:58 (Duoneb Neb) 1 ampule Q2HR NEB PRN NEB 03/05/17 11:00 Sodium Bicarbonate 100 meq/Sodium Chloride 1,100 ml @ 125 mls/hr Q8H48M IV 03/06/17 17:00 03/09/17 03:48 (Lactinex) 1 tab TID PO 03/07/17 13:00 03/10/17 10:00 (Imodium) 2 mg Q4H PRN PO 03/07/17 10:30 03/10/17 10:06 (Vibramycin) 100 mg BID PO 03/07/17 21:00 03/10/17 10:00 Sodium Chloride 38.5 meq/Sodium Bicarbonate 100 meq/Sterile Water 1,109.625 ml @ 125 mls/hr Q8H53M IV 03/09/17 20:00 03/10/17 04:29 Assessment and Plan Problem List: (1) Renal hemorrhage, right ICD Code: N28.89 - Other specified disorders of kidney and ureter (2) ASUNICON (acute kidney injury) ICD Code: N17.9 - Acute kidney failure, unspecified Status: Acute (3) Anemia ICD Code: D64.9 - Anemia, unspecified Status: Acute Yosef Schroeder MD Mar 10, 2017 12:45
--- NOTE | 2017-03-10 12:50 | HHI.NPPN ---
Subjective History of Present Illness 71-year-old with peripheral vascular disease and right perinephric hematoma which is enlarging patient has developed acute renal failure and has hyperchloremic metabolic acidosis Additional Remarks Patient is alert, eating no SOB, feeling better. Review of Systems General Constitutional: Fatigue Objective Data Data Vital Signs Date Time Temp Pulse Resp B/P (MAP) Pulse Ox O2 Delivery O2 Flow Rate FiO2 03/10/17 08:00 98.1 62 20 143/61 (88) 91 03/10/17 04:00 Nasal Cannula 2.00 03/10/17 04:00 98.0 68 19 138/68 (91) 94 03/10/17 00:00 98.1 61 20 126/64 (84) 93 03/10/17 00:00 Nasal Cannula 2.00 03/09/17 20:20 Nasal Cannula 2.00 03/09/17 20:00 97.9 68 22 131/66 (87) 94 03/09/17 17:04 66 03/09/17 16:00 98.3 63 20 122/56 (78) 97 03/09/17 13:23 59 20 118/56 (76) 95 03/09/17 12:55 59 20 120/55 (76) 95 -: 03/10/17 0709 03/10/17 0709 Physical Exam General Appearance: Well Developed, No Acute Distress, Comfortable Neck Neck Exam: Neck Supple Pulmonary Resp Exam: Breath Sounds Equal, No Distress, Rhonchi, Decreased Bases, Diminished Breath Sounds Cardiology CV Exam: Irregular Gastrointestinal/Abdomen GI Exam: Soft, Non-Tender, Bowel Sounds Present Extremeties Extremities Exam: No Edema Neurologic Neuro Exam: Alert, Awake Psychiatric Psych Exam: Appropriate Responses Assessment/Plan Problem List: (1) Acute renal failure ICD Codes: N17.9 - Acute kidney failure, unspecified Status: Acute Plan: Patient had abnormal circulation right kidney embolization was done he has right renal hematoma Creatinine is now almost same. K is normal, Calcium is low, on Calcitriol. (2) CKD (chronic kidney disease) stage 3, GFR 30-59 ml/min ICD Codes: N18.3 - Chronic kidney disease, stage 3 (moderate) Plan: Monitor output (3) Anemia ICD Codes: D64.9 - Anemia, unspecified Status: Acute Plan: Hematology is following and he has right renal hematoma (4) Atrial fibrillation with RVR ICD Codes: I48.91 - Unspecified atrial fibrillation Status: Acute (5) DM (diabetes mellitus) ICD Codes: E11.9 - DM (diabetes mellitus) Status: Chronic (6) HTN (hypertension) ICD Codes: I10 - HTN (hypertension) Status: Chronic Avril Carcamo MD Mar 10, 2017 12:50
[2017-03-10 16:00] VITALS: BP 134/63; PULSE 58; RESP 20; TEMP 98.4; O2SAT 95
[2017-03-10] MEDS: SODIUM CHLORIDE 23.4% INJ 38.5 MEQ in WATER STERILE FOR INJ 1,000 ML IV SCH (17:00)
[2017-03-10 20:00] VITALS: BP 121/56; PULSE 54; PULSE 62; RESP 20; TEMP 98; O2SAT 95
--- NOTE | 2017-03-10 22:36 | HHI.PR ---
Subjective Remarks Deferred entry - patient seen earlier at 3:30 pm Patient states that he feels better. Diarrhea is much improved Sodium still elevated Objective Vitals Vital Signs Date Time Temp Pulse Resp B/P (MAP) Pulse Ox O2 Delivery O2 Flow Rate FiO2 03/10/17 20:00 98.0 62 20 121/56 (77) 95 03/10/17 16:00 98.4 58 20 134/63 (86) 95 03/10/17 12:00 98.7 61 20 123/59 (80) 95 03/10/17 08:00 98.1 62 20 143/61 (88) 91 03/10/17 08:00 95 Room Air 03/10/17 04:00 Nasal Cannula 2.00 03/10/17 04:00 98.0 68 19 138/68 (91) 94 03/10/17 00:00 98.1 61 20 126/64 (84) 93 03/10/17 00:00 Nasal Cannula 2.00 I/O 03/09/17 03/09/17 03/09/17 03/10/17 03/10/17 03/10/17 07:00 15:00 23:00 07:00 15:00 23:00 Intake Total 1261 ml 480 ml 2253 ml 3996 ml Output Total 1200 ml 1000 ml 800 ml 475 ml Balance 61 ml -520 ml 1453 ml 3521 ml Intake Oral 0 ml 480 ml 560 ml 600 ml IV Total 1261 ml 1693 ml 3396 ml Output Urine Total 1200 ml 1000 ml 800 ml 475 ml # Bowel Movements 5 7 3 Result Diagram: 03/10/17 0709 03/10/17 0709 Imaging Last Impressions Renal Ultrasound 03/06/17 0000 Signed Impressions: Service Date/Time: Monday, March 06, 2017 13:01 - CONCLUSION: 1. Subtle interval enlargement of posterior right perinephric hematoma now measuring 11.2 x 7.8 x 7.9 cm in comparison to 11.0 x 8.5 x 5.8 cm on 03/01/17 CT exam. 2. No evidence for obstructive uropathy. 3. Multiple stable bilateral renal cysts similar to recent CT exam, as above. 4. Redemonstration of 2.2 x 0.4 x 2.3 cm bladder calculus. 5. Diffuse bladder wall thickening with enlarged prostate and associated mass effect at the base of the bladder. This may reflect some degree of bladder outlet obstruction. Clifford Sanchez MD Chest X-Ray 03/04/17 0000 Signed Impressions: Service Date/Time: Saturday, March 04, 2017 14:51 - CONCLUSION: Mild patchy infiltrates in the infrahilar lungs bilaterally. Blaze Marshall MD Abdomen/Pelvis CT 03/01/17 0000 Signed Impressions: Service Date/Time: February 14:01 - CONCLUSION: 1. Interval increase in the size of the right perirenal hematoma, now measuring 8.5 cm. 2. Other findings are stable compared to prior CT. Blaze Marshall MD Objective Remarks AAOx3 Clear lungs abdomen mildly distended, non tender to palpation, (+) bowel sounds. No edema in lower extremities Medications and IVs Current Medications Medications (Trade) Dose Ordered Sig/Ana Route Start Time Stop Time Status Last Admin (NS Flush) 2 ml UNSCH PRN IV FLUSH 02/28/17 10:00 03/01/17 02:10 (NS Flush) 2 ml BID IV FLUSH 02/28/17 21:00 03/09/17 20:23 (Zofran Inj) 4 mg Q6H PRN IVP 02/28/17 10:00 (Narcan Inj) 0.4 mg UNSCH PRN IV PUSH 02/28/17 10:00 (Valerie-Colace) 1 tab BID PO 02/28/17 21:00 03/07/17 08:23 (Milk Of Magnesia Liq) 30 ml Q12H PRN PO 02/28/17 10:00 (Senokot) 17.2 mg Q12H PRN PO 02/28/17 10:00 (Dulcolax Supp) 10 mg DAILY PRN RECTAL 02/28/17 10:00 (Lactulose Liq) 30 ml DAILY PRN PO 02/28/17 10:00 (D50w (Vial) Inj) 50 ml UNSCH PRN IV PUSH 02/28/17 12:15 (Glucagon Inj) 1 mg UNSCH PRN OTHER 02/28/17 12:15 (NovoLOG SUPPLEMENTAL SCALE) 1 ACHS SLIDING SCALE SQ 02/28/17 17:00 03/09/17 21:00 (Protonix Inj) 40 mg DAILY IV PUSH 02/28/17 12:15 03/10/17 09:58 (Rocaltrol) 0.5 mcg DAILY PO 03/01/17 09:00 03/10/17 09:59 (Oscal-D 250-125) 500 mg Q12HR PO 02/28/17 21:00 03/10/17 09:59 (Vitamin D3) 5,000 units DAILY PO 03/01/17 09:00 03/10/17 10:00 (Ferrous Sulfate) 325 mg DAILY PO 03/01/17 09:00 03/10/17 10:00 (Apresoline) 10 mg TID PO 02/28/17 13:00 03/10/17 17:28 (Cozaar) 25 mg DAILY PO 03/01/17 09:00 03/10/17 09:59 (Pravachol) 40 mg DAILY PO 03/01/17 09:00 03/10/17 10:00 (Tylenol) 500 mg Q6H PRN PO 03/01/17 21:45 (Coreg) 6.25 mg Q12HR PO 03/02/17 21:00 03/10/17 09:59 (Roxicodone) 5 mg Q4H PRN PO 03/02/17 12:00 03/10/17 17:31 (Duoneb Neb) 1 ampule Q2HR NEB PRN NEB 03/05/17 11:00 (Lactinex) 1 tab TID PO 03/07/17 13:00 03/10/17 17:28 (Imodium) 2 mg Q4H PRN PO 03/07/17 10:30 03/10/17 10:06 (Vibramycin) 100 mg BID PO 03/07/17 21:00 03/10/17 10:00 Sodium Chloride 38.5 meq/Sterile Water 1,009.625 ml @ 84 mls/hr Q12H2M IV 03/10/17 17:00 03/10/17 17:00 A/P Problem List: (1) Acute blood loss anemia ICD Code: D62 - Acute posthemorrhagic anemia Status: Resolved (2) GI bleed ICD Code: K92.2 - Gastrointestinal hemorrhage, unspecified Status: Resolved (3) Perinephric hematoma ICD Code: S37.019A - Minor contusion of unspecified kidney, initial encounter Status: Acute (4) HCAP (healthcare-associated pneumonia) ICD Code: J18.9 - Pneumonia, unspecified organism (5) CKD (chronic kidney disease) stage 3, GFR 30-59 ml/min ICD Code: N18.3 - Chronic kidney disease, stage 3 (moderate) (6) ASUNCION (acute kidney injury) ICD Code: N17.9 - Acute kidney failure, unspecified Status: Acute (7) HTN (hypertension) ICD Code: I10 - HTN (hypertension) Status: Chronic (8) Diarrhea ICD Code: R19.7 - Diarrhea, unspecified Status: Acute Assessment and Plan Acute Blood loss Anemia. Possibly s/t GI bleed vs renal hemorrhage. From the last hospitalization hemoglobin is relatively stable. In January hemoglobin was 8.4 and now is 7.7. Patient does not have any gross bleeding. He does have a positive Hemoccult done in the ED. Patient is also on chronic anticoagulation with Coumadin. S/p 4 units red blood cells. Hemoglobin currently stable. GI and hematology consulted and recommendations appreciated. - Will hold Coumadin for now. Possibly resume at lower dose on discharge. Follow up with hematology. - Protonix. - follow CBC and transfuse as needed. Stable. - Rpt. Colonoscopy end of March as planned. GI signed off. Right perinephric hematoma Noted on last admission. CT abdomen showed spontaneous hemorrhage involving the right mid pole kidney measuring 6.5 cm in size. Repeat CT showed increasing size to 8.5 cm. Appreciate urology consult. - continue to hold Coumadin. Defer to urology and hematology in regards to resuming anticoagulation. The pt is not sure he wants to resume anticoagulation. - follow CBC, if hgb decreases may consider IR embolization. Stable. Renal ultrasound was ordered and as described above, there was enlargement of perinephric hematoma but no signs of obstructive uropathy. there is diffuse bladder wall thickening with enlarged prostate and associated mass effect at the base of the bladder. 03/08 Urology reconsulted by nephrology given that renal function is not improving. Urology recommendations pending. 03/09 the patient is status post IR embolization. Continue to monitor CBC. 03/10 hemoglobin stable at 9.1. Continue to monitor CBC. HCAP CXR with bilateral mild infiltrates. The patient was recently hospitalized. The patient was initially started on IV vancomycin and IV Zosyn on 03/05/17. Patient also was treated with supplemental oxygen and DuoNeb's as needed. Blood cultures obtained and negative. Patient also treated with incentive spirometry which will be continued. Posteriorly on March 07 IV vancomycin and IV Zosyn were discontinued and the patient was started on oral doxycycline. Bladder Stone/ UTI CT abdomen showed bladder stone measuring 1.61cm on last admit. UA indicative of infection. Sands catheter was placed and urology consulted. However, urine culture was concomitant with contamination. ASUNCION on Chronic Kidney Disease stage 3 - Avoid nephrotoxins. - Strict ins and outs. - start IVFs and monitor. 03/06 Worsening creatinine from 1.4 from admission to 1.9. Nephrology consult. Will start on IV fluids as per nephrology recommendations. started on NS with sodium bicarbonate as per nephrology. Continue to monitor BUN and creatinine and BMP for resolution of acidosis. 03/07 Creatinine Trending up. Nephrology following. Will increase the rate of IV fluids to 100 ml/hr. 03/08 Urology reconsulted due to enlarging perinephric hematoma and no response after IV fluids. 03/09 creatinine now slightly improved. Continue IV fluids as per nephrology recommendations. 03/10 Creatinine stable at 2.2 Hyperchloremic metabolic acidosis Likely secondary to diarrhea. C. difficile checked and negative. The patient was started on Imodium as needed as well as Lactobacillus acidophilus scheduled. Continue IV fluids, carbon dioxide trending up. Patient currently on half- normal saline with sodium bicarbonate. 03/10 Resolved. Discontinue sodium bicarbonate. Atrial fibrillation/ V tach On chronic anticoagulation with Coumadin. INR is 1.2. The patient has been having problems with bleeding. The pt had a run of V tach vs A fib with aberrancy 03/02. - Will hold Coumadin and follow up with hematology. - telemetry. - increased Coreg to 6.25 mg BID. 03/06 Rate controlled, no reported events of V tach. Diabetes Mellitus With neuropathy and retinopathy. 03/06 Blood sugars stable. Continue SSI and continue to monitor accuchecks. Hypocalcemia Calcium level improved. Replaced with IV Calcium chloride. Continue to monitor calcium levels. Likely decreased secondary to decreased oral intake. Hypomagnesemia Status post replacement with IV magnesium sulfate. Continue to monitor magnesium levels. Given that patient had episode of V. tach. Magnesium should be closer to 2. 03/07 Magnesium level 1.9 Continue to monitor. Diarrhea Patient c/o watery diarrhea which she says has had for a long time. Diarrhea is watery. C diff test oredered and negative. Will reconsult GI. Patient has been started on lactobacillus Acidophilus and loperamide as needed which I will continue but schedule loperamide administration. Stool for one parasites and enteric pathogens were ordered, however lab canceled the order is is as per laboratory policy. HIV 1 and 2 antibody negative. I suspect that the patient's diarrhea is functional. BPH Renal us shows diffuse bladder wall thickening and enlarged prostate. Urology following. Will start patient on Flomax. Patient might need to be discharged home with sands catheter. Fu urology recommendations. Hypernatremia Will change IV lfuids to 1/4 normal saline. Continue to monitor BMP. Tobacco Use - Patient counseled on cessation. DVT prophylaxis- chemical prophylaxis contraindicated at this time secondary to active bleeding Discharge Planning Pending improvement of creatinine, resolution of hypernatremia, urology and nephrology clearance. Problem Qualifiers (1) Diarrhea: Qualified Codes: R19.7 - Diarrhea, unspecified French Elliott MD Mar 10, 2017 22:36
[2017-03-11] VITALS: BP 134/63; PULSE 50; PULSE 58; RESP 20; TEMP 98; O2SAT 95
[2017-03-11 04:00] VITALS: BP 127/55; PULSE 53; PULSE 57; RESP 20; TEMP 98.1; O2SAT 94
[2017-03-11 08:00] VITALS: BP 130/65; PULSE 56; PULSE 60; PULSE 65; RESP 20; TEMP 97.6; O2SAT 94
[2017-03-11] MEDS: INSULIN ASPART SUPPLEMENTAL SCALE SQ SCH ×4 (08:00→21:00)
[2017-03-11 08:05] LABS: HEMATOCRIT 28.2 % (39.0-51.0); MEAN CELL VOLUME 88.4 FL (80.0-100.0); MEAN CORPUSCULAR HEMOGLOBIN 29.7 PG (27.0-34.0); MEAN CORPUSCULAR HGB CONC 33.6 % (32.0-36.0); PLATELET COUNT 147 TH/MM3 (150-450); RED BLOOD COUNT 3.18 MIL/MM3 (4.50-5.90); RED CELL DISTRIBUTION WIDTH 16.2 % (11.6-17.2); REVIEW FLAG FINAL; WHITE BLOOD COUNT 10.6 TH/MM3 (4.0-11.0)
[2017-03-11] MEDS: hydrALAZINE HCL 10 MG TAB PO SCH ×3 (08:23→18:20)
[2017-03-11] MEDS: PRAVASTATIN SOD 40 MG TAB PO SCH (08:23)
[2017-03-11] MEDS: LACTOBACILLUS ACIDOPHILUS TAB PO SCH ×3 (08:23→18:20)
[2017-03-11] MEDS: CALCITRIOL 0.25 MCG CAP PO SCH (08:23)
[2017-03-11] MEDS: CALCIUM/VITAMIN D 250 MG/125 U TAB PO SCH ×2 (08:23→23:20)
[2017-03-11] MEDS: FERROUS SULFATE 325 MG (65 MG ELEMENTAL IRON) TAB PO SCH (08:24)
[2017-03-11] MEDS: CHOLECALCIFEROL (VIT D3) 5000 UNIT CAP PO SCH (08:24)
[2017-03-11] MEDS: LOSARTAN 25 MG TAB PO SCH (08:24)
[2017-03-11] MEDS: DOXYCYCLINE HYCLATE 100 MG CAP PO SCH ×2 (08:24→23:20)
[2017-03-11] MEDS: DOCUSATE SODIUM 50 MG/SENNA 8.6 MG TAB PO SCH ×2 (08:25→21:00)
[2017-03-11] MEDS: PANTOPRAZOLE SODIUM 40 MG VIAL IV PUSH SCH (08:27)
[2017-03-11] MEDS: SODIUM CHLORIDE 0.9% FLUSH 10 ML FLUSH IV FLUSH SCH ×2 (08:27→21:00)
[2017-03-11] MEDS: CARVEDILOL 6.25 MG TAB PO SCH ×2 (08:28→23:23)
[2017-03-11 09:34] LABS: BICARBONATE 24.5 MEQ/L (21.0-32.0); MAGNESIUM 1.5 MG/DL (1.5-2.5); POTASSIUM 3.6 MEQ/L (3.5-5.1)
[2017-03-11 09:52] LABS: CALCIUM-PROTEIN CORRECTED 8.4 MG/DL (8.5-10.1)
[2017-03-11] MEDS: SODIUM CHLORIDE 23.4% INJ 38.5 MEQ in WATER STERILE FOR INJ 1,000 ML IV SCH ×2 (10:16→17:04)
--- NOTE | 2017-03-11 11:42 | HHI.NPPN ---
Subjective History of Present Illness 71-year-old with peripheral vascular disease and right perinephric hematoma which is enlarging patient has developed acute renal failure and has hyperchloremic metabolic acidosis Additional Remarks Patient is alert, no SOB, feeling better, not in distress. Review of Systems General Constitutional: Fatigue Objective Data Data Vital Signs Date Time Temp Pulse Resp B/P (MAP) Pulse Ox O2 Delivery O2 Flow Rate FiO2 03/11/17 09:49 18 03/11/17 08:00 97.6 56 20 130/65 (86) 94 03/11/17 04:00 53 03/11/17 04:00 98.1 57 20 127/55 (79) 94 03/11/17 00:00 50 03/11/17 00:00 98.0 58 20 134/63 (86) 95 03/11/17 00:00 Nasal Cannula 2.00 03/10/17 22:00 Nasal Cannula 2.00 03/10/17 20:00 54 03/10/17 20:00 98.0 62 20 121/56 (77) 95 03/10/17 16:00 98.4 58 20 134/63 (86) 95 03/10/17 12:00 98.7 61 20 123/59 (80) 95 -: 03/11/17 0725 03/11/17 0725 Physical Exam General Appearance: Well Developed, No Acute Distress, Comfortable Neck Neck Exam: Neck Supple Pulmonary Resp Exam: Breath Sounds Equal, No Distress, Rhonchi, Decreased Bases, Diminished Breath Sounds Cardiology CV Exam: Irregular Gastrointestinal/Abdomen GI Exam: Soft, Non-Tender, Bowel Sounds Present Extremeties Extremities Exam: No Edema Neurologic Neuro Exam: Alert, Awake Psychiatric Psych Exam: Appropriate Responses Assessment/Plan Problem List: (1) Acute renal failure ICD Codes: N17.9 - Acute kidney failure, unspecified Status: Acute Plan: Patient had abnormal circulation right kidney embolization was done he has right renal hematoma Creatinine is now almost same. K is normal, Calcium is low, on Calcitriol. Non oliguric, BP is stable. Dr. Howard will follow from AM. (2) CKD (chronic kidney disease) stage 3, GFR 30-59 ml/min ICD Codes: N18.3 - Chronic kidney disease, stage 3 (moderate) Plan: Monitor output (3) Anemia ICD Codes: D64.9 - Anemia, unspecified Status: Acute Plan: Hematology is following and he has right renal hematoma (4) Atrial fibrillation with RVR ICD Codes: I48.91 - Unspecified atrial fibrillation Status: Acute (5) DM (diabetes mellitus) ICD Codes: E11.9 - DM (diabetes mellitus) Status: Chronic (6) HTN (hypertension) ICD Codes: I10 - HTN (hypertension) Status: Chronic Avril Carcamo MD Mar 11, 2017 11:42
[2017-03-11 12:00] VITALS: BP 115/58; PULSE 59; RESP 20; TEMP 97.7; O2SAT 96
[2017-03-11 16:00] VITALS: BP 159/71; PULSE 54; PULSE 61; RESP 20; TEMP 97.4; O2SAT 94
--- NOTE | 2017-03-11 17:48 | HHI.PR ---
Subjective Remarks Patient states he has had 4 episodes of diarrhea. RN states that patient has not had any. Denies abdominal pain, nausea or vomiting. Objective Vitals Vital Signs Date Time Temp Pulse Resp B/P (MAP) Pulse Ox O2 Delivery O2 Flow Rate FiO2 03/11/17 16:00 97.4 54 20 159/71 (100) 94 03/11/17 12:00 97.7 59 20 115/58 (77) 96 03/11/17 09:49 18 03/11/17 08:00 60 03/11/17 08:00 97.6 56 20 130/65 (86) 94 03/11/17 04:00 53 03/11/17 04:00 98.1 57 20 127/55 (79) 94 03/11/17 00:00 50 03/11/17 00:00 98.0 58 20 134/63 (86) 95 03/11/17 00:00 Nasal Cannula 2.00 03/10/17 22:00 Nasal Cannula 2.00 03/10/17 20:00 54 03/10/17 20:00 98.0 62 20 121/56 (77) 95 I/O 03/10/17 03/10/17 03/10/17 03/11/17 03/11/17 03/11/17 07:00 15:00 23:00 07:00 15:00 23:00 Intake Total 2253 ml 3996 ml 1613 ml Output Total 800 ml 475 ml 850 ml Balance 1453 ml 3521 ml 763 ml Intake Oral 560 ml 600 ml 720 ml IV Total 1693 ml 3396 ml 893 ml Output Urine Total 800 ml 475 ml 850 ml # Bowel Movements 3 Result Diagram: 03/11/17 0725 03/11/17 0725 Imaging Last Impressions Renal Ultrasound 03/06/17 0000 Signed Impressions: Service Date/Time: Monday, March 06, 2017 13:01 - CONCLUSION: 1. Subtle interval enlargement of posterior right perinephric hematoma now measuring 11.2 x 7.8 x 7.9 cm in comparison to 11.0 x 8.5 x 5.8 cm on 03/01/17 CT exam. 2. No evidence for obstructive uropathy. 3. Multiple stable bilateral renal cysts similar to recent CT exam, as above. 4. Redemonstration of 2.2 x 0.4 x 2.3 cm bladder calculus. 5. Diffuse bladder wall thickening with enlarged prostate and associated mass effect at the base of the bladder. This may reflect some degree of bladder outlet obstruction. Clifford Sanchez MD Chest X-Ray 03/04/17 0000 Signed Impressions: Service Date/Time: Saturday, March 04, 2017 14:51 - CONCLUSION: Mild patchy infiltrates in the infrahilar lungs bilaterally. Blaze Marshall MD Abdomen/Pelvis CT 03/01/17 0000 Signed Impressions: Service Date/Time: February 14:01 - CONCLUSION: 1. Interval increase in the size of the right perirenal hematoma, now measuring 8.5 cm. 2. Other findings are stable compared to prior CT. Blaze Marshall MD Objective Remarks AAOx3 Clear lungs abdomen mildly distended, non tender to palpation, (+) bowel sounds. No edema in lower extremities Medications and IVs Current Medications Medications (Trade) Dose Ordered Sig/Ana Route Start Time Stop Time Status Last Admin (NS Flush) 2 ml UNSCH PRN IV FLUSH 02/28/17 10:00 03/01/17 02:10 (NS Flush) 2 ml BID IV FLUSH 02/28/17 21:00 03/11/17 08:27 (Zofran Inj) 4 mg Q6H PRN IVP 02/28/17 10:00 (Narcan Inj) 0.4 mg UNSCH PRN IV PUSH 02/28/17 10:00 (Valerie-Colace) 1 tab BID PO 02/28/17 21:00 03/07/17 08:23 (Milk Of Magnesia Liq) 30 ml Q12H PRN PO 02/28/17 10:00 (Senokot) 17.2 mg Q12H PRN PO 02/28/17 10:00 (Dulcolax Supp) 10 mg DAILY PRN RECTAL 02/28/17 10:00 (Lactulose Liq) 30 ml DAILY PRN PO 02/28/17 10:00 (D50w (Vial) Inj) 50 ml UNSCH PRN IV PUSH 02/28/17 12:15 (Glucagon Inj) 1 mg UNSCH PRN OTHER 02/28/17 12:15 (NovoLOG SUPPLEMENTAL SCALE) 1 ACHS SLIDING SCALE SQ 02/28/17 17:00 03/11/17 12:09 (Protonix Inj) 40 mg DAILY IV PUSH 02/28/17 12:15 03/11/17 08:27 (Rocaltrol) 0.5 mcg DAILY PO 03/01/17 09:00 03/11/17 08:23 (Oscal-D 250-125) 500 mg Q12HR PO 02/28/17 21:00 03/11/17 08:23 (Vitamin D3) 5,000 units DAILY PO 03/01/17 09:00 03/11/17 08:24 (Ferrous Sulfate) 325 mg DAILY PO 03/01/17 09:00 03/11/17 08:24 (Apresoline) 10 mg TID PO 02/28/17 13:00 03/11/17 12:10 (Cozaar) 25 mg DAILY PO 03/01/17 09:00 03/11/17 08:24 (Pravachol) 40 mg DAILY PO 03/01/17 09:00 03/11/17 08:23 (Tylenol) 500 mg Q6H PRN PO 03/01/17 21:45 (Coreg) 6.25 mg Q12HR PO 03/02/17 21:00 03/10/17 09:59 (Roxicodone) 5 mg Q4H PRN PO 03/02/17 12:00 03/11/17 08:24 (Duoneb Neb) 1 ampule Q2HR NEB PRN NEB 03/05/17 11:00 (Lactinex) 1 tab TID PO 03/07/17 13:00 03/11/17 12:10 (Imodium) 2 mg Q4H PRN PO 03/07/17 10:30 03/10/17 22:02 (Vibramycin) 100 mg BID PO 03/07/17 21:00 03/11/17 08:24 Sodium Chloride 38.5 meq/Sterile Water 1,009.625 ml @ 84 mls/hr Q12H2M IV 03/10/17 17:00 03/11/17 10:16 A/P Problem List: (1) Acute blood loss anemia ICD Code: D62 - Acute posthemorrhagic anemia Status: Resolved (2) GI bleed ICD Code: K92.2 - Gastrointestinal hemorrhage, unspecified Status: Resolved (3) Perinephric hematoma ICD Code: S37.019A - Minor contusion of unspecified kidney, initial encounter Status: Acute (4) HCAP (healthcare-associated pneumonia) ICD Code: J18.9 - Pneumonia, unspecified organism (5) CKD (chronic kidney disease) stage 3, GFR 30-59 ml/min ICD Code: N18.3 - Chronic kidney disease, stage 3 (moderate) (6) ASUNCION (acute kidney injury) ICD Code: N17.9 - Acute kidney failure, unspecified Status: Acute (7) HTN (hypertension) ICD Code: I10 - HTN (hypertension) Status: Chronic (8) Diarrhea ICD Code: R19.7 - Diarrhea, unspecified Status: Acute Assessment and Plan Acute Blood loss Anemia. Possibly s/t GI bleed vs renal hemorrhage. From the last hospitalization hemoglobin is relatively stable. In January hemoglobin was 8.4 and now is 7.7. Patient does not have any gross bleeding. He does have a positive Hemoccult done in the ED. Patient is also on chronic anticoagulation with Coumadin. S/p 4 units red blood cells. Hemoglobin currently stable. GI and hematology consulted and recommendations appreciated. - Will hold Coumadin for now. Possibly resume at lower dose on discharge. Follow up with hematology. - Protonix. - follow CBC and transfuse as needed. Stable. - Rpt. Colonoscopy end of March as planned. GI signed off. Right perinephric hematoma Noted on last admission. CT abdomen showed spontaneous hemorrhage involving the right mid pole kidney measuring 6.5 cm in size. Repeat CT showed increasing size to 8.5 cm. Appreciate urology consult. - continue to hold Coumadin. Defer to urology and hematology in regards to resuming anticoagulation. The pt is not sure he wants to resume anticoagulation. - follow CBC, if hgb decreases may consider IR embolization. Stable. Renal ultrasound was ordered and as described above, there was enlargement of perinephric hematoma but no signs of obstructive uropathy. there is diffuse bladder wall thickening with enlarged prostate and associated mass effect at the base of the bladder. 03/08 Urology reconsulted by nephrology given that renal function is not improving. Urology recommendations pending. 03/09 the patient is status post IR embolization. Continue to monitor CBC. 03/11 Stable hemoglobin, continue to monitor cbc. HCAP CXR with bilateral mild infiltrates. The patient was recently hospitalized. The patient was initially started on IV vancomycin and IV Zosyn on 03/05/17. Patient also was treated with supplemental oxygen and DuoNeb's as needed. Blood cultures obtained and negative. Patient also treated with incentive spirometry which will be continued. Posteriorly on March 07 IV vancomycin and IV Zosyn were discontinued and the patient was started on oral doxycycline. Bladder Stone/ UTI CT abdomen showed bladder stone measuring 1.61cm on last admit. UA indicative of infection. Sands catheter was placed and urology consulted. However, urine culture was concomitant with contamination. ASUNCION on Chronic Kidney Disease stage 3 - Avoid nephrotoxins. - Strict ins and outs. - start IVFs and monitor. 03/06 Worsening creatinine from 1.4 from admission to 1.9. Nephrology consult. Will start on IV fluids as per nephrology recommendations. started on NS with sodium bicarbonate as per nephrology. Continue to monitor BUN and creatinine and BMP for resolution of acidosis. 03/07 Creatinine Trending up. Nephrology following. Will increase the rate of IV fluids to 100 ml/hr. 03/08 Urology reconsulted due to enlarging perinephric hematoma and no response after IV fluids. 03/09 creatinine now slightly improved. Continue IV fluids as per nephrology recommendations. 03/10 Creatinine stable at 2.2 Hyperchloremic metabolic acidosis Likely secondary to diarrhea. C. difficile checked and negative. The patient was started on Imodium as needed as well as Lactobacillus acidophilus scheduled. Continue IV fluids, carbon dioxide trending up. Patient currently on half- normal saline with sodium bicarbonate. 03/10 Resolved. Discontinue sodium bicarbonate. Atrial fibrillation/ V tach On chronic anticoagulation with Coumadin. INR is 1.2. The patient has been having problems with bleeding. The pt had a run of V tach vs A fib with aberrancy 03/02. - Will hold Coumadin and follow up with hematology. - telemetry. - increased Coreg to 6.25 mg BID. 03/06 Rate controlled, no reported events of V tach. Diabetes Mellitus With neuropathy and retinopathy. 03/06 Blood sugars stable. Continue SSI and continue to monitor accuchecks. Hypocalcemia Calcium level improved. Replaced with IV Calcium chloride. Continue to monitor calcium levels. Likely decreased secondary to decreased oral intake. Hypomagnesemia Status post replacement with IV magnesium sulfate. Continue to monitor magnesium levels. Given that patient had episode of V. tach. Magnesium should be closer to 2. 03/07 Magnesium level 1.9 Continue to monitor. Diarrhea Patient c/o watery diarrhea which she says has had for a long time. Diarrhea is watery. C diff test oredered and negative. Will reconsult GI. Patient has been started on lactobacillus Acidophilus and loperamide as needed which I will continue but schedule loperamide administration. Stool for one parasites and enteric pathogens were ordered, however lab canceled the order is is as per laboratory policy. HIV 1 and 2 antibody negative. I suspect that the patient's diarrhea is functional. Seems to be improving. BPH Renal us shows diffuse bladder wall thickening and enlarged prostate. Urology following. Will start patient on Flomax. Patient might need to be discharged home with sands catheter. Fu urology recommendations. Hypernatremia Will change IV lfuids to 1/4 normal saline. Continue to monitor BMP. 03/11 Sodium trending down. 145 today. Tobacco Use - Patient counseled on cessation. DVT prophylaxis- chemical prophylaxis contraindicated at this time secondary to active bleeding Discharge Planning Pending improvement of creatinine, resolution of hypernatremia, urology and nephrology clearance. Problem Qualifiers (1) Diarrhea: Qualified Codes: R19.7 - Diarrhea, unspecified French Elliott MD Mar 11, 2017 17:48
[2017-03-11] MEDS ORDERED: CALCIUM CHLORIDE INJ 1 GM in SODIUM CHLORIDE 0.9% INJ 100 ML IV ONE (18:00)
[2017-03-11 20:00] VITALS: BP 157/70; PULSE 57; PULSE 59; RESP 18; TEMP 98; O2SAT 94
[2017-03-11] MEDS: CHOLESTYRAMINE 4 GM PACKET PO SCH (21:00)
[2017-03-12] VITALS: BP 142/65; PULSE 52; PULSE 62; RESP 18; TEMP 98.1; O2SAT 94
[2017-03-12 04:00] VITALS: BP 149/65; PULSE 52; PULSE 59; RESP 18; TEMP 97.9; O2SAT 94
[2017-03-12] MEDS: SODIUM CHLORIDE 23.4% INJ 38.5 MEQ in WATER STERILE FOR INJ 1,000 ML IV SCH ×2 (05:56→18:10)
[2017-03-12 07:19] LABS: HEMATOCRIT 29.1 % (39.0-51.0); MEAN CELL VOLUME 89.3 FL (80.0-100.0); MEAN CORPUSCULAR HEMOGLOBIN 28.6 PG (27.0-34.0); PLATELET COUNT 165 TH/MM3 (150-450); RED BLOOD COUNT 3.26 MIL/MM3 (4.50-5.90); RED CELL DISTRIBUTION WIDTH 16.1 % (11.6-17.2); REVIEW FLAG FINAL; WHITE BLOOD COUNT 9.7 TH/MM3 (4.0-11.0)
[2017-03-12 07:47] LABS: POTASSIUM 3.7 MEQ/L (3.5-5.1)
[2017-03-12] MEDS: PANTOPRAZOLE SODIUM 40 MG VIAL IV PUSH SCH (07:57)
[2017-03-12] MEDS: CHOLECALCIFEROL (VIT D3) 5000 UNIT CAP PO SCH (07:58)
[2017-03-12] MEDS: CHOLESTYRAMINE 4 GM PACKET PO SCH ×2 (07:58→21:00)
[2017-03-12] MEDS: PRAVASTATIN SOD 40 MG TAB PO SCH (07:58)
[2017-03-12] MEDS: DOXYCYCLINE HYCLATE 100 MG CAP PO SCH ×2 (07:58→21:49)
[2017-03-12] MEDS: CALCITRIOL 0.25 MCG CAP PO SCH (07:58)
[2017-03-12] MEDS: CALCIUM/VITAMIN D 250 MG/125 U TAB PO SCH ×2 (07:58→21:49)
[2017-03-12] MEDS: FERROUS SULFATE 325 MG (65 MG ELEMENTAL IRON) TAB PO SCH (07:59)
[2017-03-12] MEDS: LOSARTAN 25 MG TAB PO SCH (07:59)
[2017-03-12] MEDS: LACTOBACILLUS ACIDOPHILUS TAB PO SCH ×3 (07:59→17:37)
[2017-03-12] MEDS: SODIUM CHLORIDE 0.9% FLUSH 10 ML FLUSH IV FLUSH SCH ×2 (07:59→21:49)
[2017-03-12] MEDS: hydrALAZINE HCL 10 MG TAB PO SCH ×3 (07:59→17:37)
[2017-03-12] MEDS: INSULIN ASPART SUPPLEMENTAL SCALE SQ SCH ×4 (07:59→21:00)
[2017-03-12 08:00] VITALS: BP 152/72; PULSE 63; PULSE 64; RESP 20; TEMP 97.8; O2SAT 96
[2017-03-12] MEDS: CARVEDILOL 6.25 MG TAB PO SCH ×2 (08:00→21:49)
[2017-03-12] MEDS: DOCUSATE SODIUM 50 MG/SENNA 8.6 MG TAB PO SCH ×3 (08:00→21:00)
[2017-03-12 12:00] VITALS: BP 152/74; PULSE 62; PULSE 64; RESP 20; TEMP 97.4; O2SAT 95
--- NOTE | 2017-03-12 14:00 | HHI.NPPN ---
Subjective History of Present Illness 71-year-old with peripheral vascular disease and right perinephric hematoma which is enlarging patient has developed acute renal failure and has hyperchloremic metabolic acidosis Additional Remarks Patient is alert, no SOB, feeling better, not in distress. Review of Systems General Constitutional: Fatigue Objective Data Data 03/12/17 03/13/17 18:59 06:59 Intake Total 720 ml Balance 720 ml Intake Oral 720 ml Vital Signs Date Time Temp Pulse Resp B/P (MAP) Pulse Ox O2 Delivery O2 Flow Rate FiO2 03/12/17 12:00 97.4 62 20 152/74 (100) 95 03/12/17 12:00 64 03/12/17 08:00 64 03/12/17 08:00 97.8 63 20 152/72 (98) 96 03/12/17 04:00 52 03/12/17 04:00 97.9 59 18 149/65 (93) 94 03/12/17 04:00 Nasal Cannula 2.00 03/12/17 00:00 98.1 52 18 142/65 (90) 94 03/12/17 00:00 62 03/12/17 00:00 Nasal Cannula 2.00 03/11/17 20:00 Nasal Cannula 2.00 03/11/17 20:00 98.0 57 18 157/70 (99) 94 03/11/17 20:00 59 03/11/17 16:00 97.4 54 20 159/71 (100) 94 03/11/17 16:00 61 -: 03/12/17 0550 03/12/17 0550 Physical Exam General Appearance: Well Developed, No Acute Distress, Comfortable Neck Neck Exam: Neck Supple Pulmonary Resp Exam: Breath Sounds Equal, No Distress, Rhonchi, Decreased Bases, Diminished Breath Sounds Cardiology CV Exam: Irregular Gastrointestinal/Abdomen GI Exam: Soft, Non-Tender, Bowel Sounds Present Extremeties Extremities Exam: No Edema Neurologic Neuro Exam: Alert, Awake Psychiatric Psych Exam: Appropriate Responses Assessment/Plan Problem List: (1) Acute renal failure ICD Codes: N17.9 - Acute kidney failure, unspecified Status: Acute Plan: Patient had abnormal circulation right kidney embolization was done he has right renal hematoma Creatinine is stable slight improvement K is normal, Calcium is low, on Calcitriol. Non oliguric, BP is stable. (2) CKD (chronic kidney disease) stage 3, GFR 30-59 ml/min ICD Codes: N18.3 - Chronic kidney disease, stage 3 (moderate) Plan: Monitor output (3) Anemia ICD Codes: D64.9 - Anemia, unspecified Status: Acute Plan: Hematology is following and he has right renal hematoma (4) Atrial fibrillation with RVR ICD Codes: I48.91 - Unspecified atrial fibrillation Status: Acute (5) DM (diabetes mellitus) ICD Codes: E11.9 - DM (diabetes mellitus) Status: Chronic (6) HTN (hypertension) ICD Codes: I10 - HTN (hypertension) Status: Chronic Cecilio Howard MD Mar 12, 2017 14:00
[2017-03-12 16:00] VITALS: BP 144/73; PULSE 52; PULSE 55; RESP 20; TEMP 97.3; O2SAT 95
--- NOTE | 2017-03-12 16:28 | HHI.PR ---
Subjective Remarks patient states that now he has constipation. As per RN report - earlier requesting stool softener. Patient denies abdominal pain, nausea. as per PT report made a suicidal remark. Objective Vitals Vital Signs Date Time Temp Pulse Resp B/P (MAP) Pulse Ox O2 Delivery O2 Flow Rate FiO2 03/12/17 12:00 97.4 62 20 152/74 (100) 95 03/12/17 12:00 64 03/12/17 08:00 64 03/12/17 08:00 97.8 63 20 152/72 (98) 96 03/12/17 04:00 52 03/12/17 04:00 97.9 59 18 149/65 (93) 94 03/12/17 04:00 Nasal Cannula 2.00 03/12/17 00:00 98.1 52 18 142/65 (90) 94 03/12/17 00:00 62 03/12/17 00:00 Nasal Cannula 2.00 03/11/17 20:00 Nasal Cannula 2.00 03/11/17 20:00 98.0 57 18 157/70 (99) 94 03/11/17 20:00 59 I/O 03/11/17 03/11/17 03/11/17 03/12/17 03/12/17 03/12/17 07:00 15:00 23:00 07:00 15:00 23:00 Intake Total 1613 ml 720 ml 240 ml 720 ml Output Total 850 ml 650 ml 850 ml Balance 763 ml 70 ml -610 ml 720 ml Intake Oral 720 ml 720 ml 240 ml 720 ml IV Total 893 ml Output Urine Total 850 ml 650 ml 850 ml # Bowel Movements 0 0 Result Diagram: 03/12/17 0550 03/12/17 0550 Imaging Last Impressions Renal Ultrasound 03/06/17 0000 Signed Impressions: Service Date/Time: Monday, March 06, 2017 13:01 - CONCLUSION: 1. Subtle interval enlargement of posterior right perinephric hematoma now measuring 11.2 x 7.8 x 7.9 cm in comparison to 11.0 x 8.5 x 5.8 cm on 03/01/17 CT exam. 2. No evidence for obstructive uropathy. 3. Multiple stable bilateral renal cysts similar to recent CT exam, as above. 4. Redemonstration of 2.2 x 0.4 x 2.3 cm bladder calculus. 5. Diffuse bladder wall thickening with enlarged prostate and associated mass effect at the base of the bladder. This may reflect some degree of bladder outlet obstruction. Clifford Sanchez MD Chest X-Ray 03/04/17 0000 Signed Impressions: Service Date/Time: Saturday, March 04, 2017 14:51 - CONCLUSION: Mild patchy infiltrates in the infrahilar lungs bilaterally. Blaze Marshall MD Abdomen/Pelvis CT 03/01/17 0000 Signed Impressions: Service Date/Time: February 14:01 - CONCLUSION: 1. Interval increase in the size of the right perirenal hematoma, now measuring 8.5 cm. 2. Other findings are stable compared to prior CT. Blaze Marshall MD Objective Remarks AAOx3 Clear lungs abdomen mildly distended, non tender to palpation, (+) bowel sounds. No edema in lower extremities Medications and IVs Current Medications Medications (Trade) Dose Ordered Sig/Ana Route Start Time Stop Time Status Last Admin (NS Flush) 2 ml UNSCH PRN IV FLUSH 02/28/17 10:00 03/01/17 02:10 (NS Flush) 2 ml BID IV FLUSH 02/28/17 21:00 03/12/17 07:59 (Zofran Inj) 4 mg Q6H PRN IVP 02/28/17 10:00 (Narcan Inj) 0.4 mg UNSCH PRN IV PUSH 02/28/17 10:00 (Valerie-Colace) 1 tab BID PO 02/28/17 21:00 03/12/17 11:41 (Milk Of Magnesia Liq) 30 ml Q12H PRN PO 02/28/17 10:00 (Senokot) 17.2 mg Q12H PRN PO 02/28/17 10:00 (Dulcolax Supp) 10 mg DAILY PRN RECTAL 02/28/17 10:00 (Lactulose Liq) 30 ml DAILY PRN PO 02/28/17 10:00 (D50w (Vial) Inj) 50 ml UNSCH PRN IV PUSH 02/28/17 12:15 (Glucagon Inj) 1 mg UNSCH PRN OTHER 02/28/17 12:15 (NovoLOG SUPPLEMENTAL SCALE) 1 ACHS SLIDING SCALE SQ 02/28/17 17:00 03/12/17 12:00 (Protonix Inj) 40 mg DAILY IV PUSH 02/28/17 12:15 03/12/17 07:57 (Rocaltrol) 0.5 mcg DAILY PO 03/01/17 09:00 03/12/17 07:58 (Oscal-D 250-125) 500 mg Q12HR PO 02/28/17 21:00 03/12/17 07:58 (Vitamin D3) 5,000 units DAILY PO 03/01/17 09:00 03/12/17 07:58 (Ferrous Sulfate) 325 mg DAILY PO 03/01/17 09:00 03/12/17 07:59 (Apresoline) 10 mg TID PO 02/28/17 13:00 03/12/17 13:31 (Cozaar) 25 mg DAILY PO 03/01/17 09:00 03/12/17 07:59 (Pravachol) 40 mg DAILY PO 03/01/17 09:00 03/12/17 07:58 (Tylenol) 500 mg Q6H PRN PO 03/01/17 21:45 (Coreg) 6.25 mg Q12HR PO 03/02/17 21:00 03/11/17 23:23 (Roxicodone) 5 mg Q4H PRN PO 03/02/17 12:00 03/11/17 23:21 (Duoneb Neb) 1 ampule Q2HR NEB PRN NEB 03/05/17 11:00 (Lactinex) 1 tab TID PO 03/07/17 13:00 03/12/17 13:31 (Imodium) 2 mg Q4H PRN PO 03/07/17 10:30 03/10/17 22:02 (Vibramycin) 100 mg BID PO 03/07/17 21:00 03/12/17 07:58 Sodium Chloride 38.5 meq/Sterile Water 1,009.625 ml @ 84 mls/hr Q12H2M IV 03/10/17 17:00 03/12/17 05:56 (Questran 4 Gm Pkt) 4 gm Q12HR PO 03/11/17 21:00 03/12/17 07:58 A/P Problem List: (1) Acute blood loss anemia ICD Code: D62 - Acute posthemorrhagic anemia Status: Resolved (2) GI bleed ICD Code: K92.2 - Gastrointestinal hemorrhage, unspecified Status: Resolved (3) Perinephric hematoma ICD Code: S37.019A - Minor contusion of unspecified kidney, initial encounter Status: Acute (4) HCAP (healthcare-associated pneumonia) ICD Code: J18.9 - Pneumonia, unspecified organism (5) CKD (chronic kidney disease) stage 3, GFR 30-59 ml/min ICD Code: N18.3 - Chronic kidney disease, stage 3 (moderate) (6) ASUNCION (acute kidney injury) ICD Code: N17.9 - Acute kidney failure, unspecified Status: Acute (7) HTN (hypertension) ICD Code: I10 - HTN (hypertension) Status: Chronic (8) Diarrhea ICD Code: R19.7 - Diarrhea, unspecified Status: Acute (9) Suicidal ideation ICD Code: R45.851 - Suicidal ideations Plan: As per PT verbal report the patient stated that he was clinical home and shoot himself. I will consult psychiatry for further evaluation. Assessment and Plan Acute Blood loss Anemia. Possibly s/t GI bleed vs renal hemorrhage. From the last hospitalization hemoglobin is relatively stable. In January hemoglobin was 8.4 and now is 7.7. Patient does not have any gross bleeding. He does have a positive Hemoccult done in the ED. Patient is also on chronic anticoagulation with Coumadin. S/p 4 units red blood cells. Hemoglobin currently stable. GI and hematology consulted and recommendations appreciated. - Will hold Coumadin for now. Possibly resume at lower dose on discharge. Follow up with hematology. - Protonix. - follow CBC and transfuse as needed. Stable. - Rpt. Colonoscopy end of March as planned. GI signed off. Right perinephric hematoma Noted on last admission. CT abdomen showed spontaneous hemorrhage involving the right mid pole kidney measuring 6.5 cm in size. Repeat CT showed increasing size to 8.5 cm. Appreciate urology consult. - continue to hold Coumadin. Defer to urology and hematology in regards to resuming anticoagulation. The pt is not sure he wants to resume anticoagulation. - follow CBC, if hgb decreases may consider IR embolization. Stable. Renal ultrasound was ordered and as described above, there was enlargement of perinephric hematoma but no signs of obstructive uropathy. there is diffuse bladder wall thickening with enlarged prostate and associated mass effect at the base of the bladder. 03/08 Urology reconsulted by nephrology given that renal function is not improving. Urology recommendations pending. 03/09 the patient is status post IR embolization. Continue to monitor CBC. 03/11 Stable hemoglobin, continue to monitor cbc. HCAP CXR with bilateral mild infiltrates. The patient was recently hospitalized. The patient was initially started on IV vancomycin and IV Zosyn on 03/05/17. Patient also was treated with supplemental oxygen and DuoNeb's as needed. Blood cultures obtained and negative. Patient also treated with incentive spirometry which will be continued. Posteriorly on March 07 IV vancomycin and IV Zosyn were discontinued and the patient was started on oral doxycycline. Bladder Stone/ UTI CT abdomen showed bladder stone measuring 1.61cm on last admit. UA indicative of infection. Sands catheter was placed and urology consulted. However, urine culture was concomitant with contamination. ASUNCION on Chronic Kidney Disease stage 3 - Avoid nephrotoxins. - Strict ins and outs. - start IVFs and monitor. 03/06 Worsening creatinine from 1.4 from admission to 1.9. Nephrology consult. Will start on IV fluids as per nephrology recommendations. started on NS with sodium bicarbonate as per nephrology. Continue to monitor BUN and creatinine and BMP for resolution of acidosis. 03/07 Creatinine Trending up. Nephrology following. Will increase the rate of IV fluids to 100 ml/hr. 03/08 Urology reconsulted due to enlarging perinephric hematoma and no response after IV fluids. 03/09 creatinine now slightly improved. Continue IV fluids as per nephrology recommendations. Creatinine stable at 2.2. Continue IV fluids as per nephrology recommendations. Hyperchloremic metabolic acidosis Likely secondary to diarrhea. C. difficile checked and negative. The patient was started on Imodium as needed as well as Lactobacillus acidophilus scheduled. Continue IV fluids, carbon dioxide trending up. Patient currently on half- normal saline with sodium bicarbonate. 03/10 Resolved. Discontinue sodium bicarbonate. Atrial fibrillation/ V tach On chronic anticoagulation with Coumadin. INR is 1.2. The patient has been having problems with bleeding. The pt had a run of V tach vs A fib with aberrancy 03/02. - Will hold Coumadin and follow up with hematology. - telemetry. - increased Coreg to 6.25 mg BID. 03/06 Rate controlled, no reported events of V tach. Diabetes Mellitus With neuropathy and retinopathy. 03/06 Blood sugars stable. Continue SSI and continue to monitor accuchecks. Hypocalcemia Calcium level improved. Replaced with IV Calcium chloride. Continue to monitor calcium levels. Likely decreased secondary to decreased oral intake. Hypomagnesemia Status post replacement with IV magnesium sulfate. Continue to monitor magnesium levels. Given that patient had episode of V. tach. Magnesium should be closer to 2. 03/07 Magnesium level 1.9 Continue to monitor. Diarrhea Patient c/o watery diarrhea which she says has had for a long time. Diarrhea is watery. C diff test oredered and negative. Will reconsult GI. Patient has been started on lactobacillus Acidophilus and loperamide as needed which I will continue but schedule loperamide administration. Stool for one parasites and enteric pathogens were ordered, however lab canceled the order is is as per laboratory policy. HIV 1 and 2 antibody negative. 03/12 Diarrhea resolved - continue Lomotil. Dc Imodium as needed. BPH Renal us shows diffuse bladder wall thickening and enlarged prostate. Urology following. Will start patient on Flomax. Patient might need to be discharged home with sands catheter. Fu urology recommendations. Hypernatremia Will change IV lfuids to 1/4 normal saline. Continue to monitor BMP. 03/12 Resolved, sodium continues to trend down. Tobacco Use - Patient counseled on cessation. DVT prophylaxis- chemical prophylaxis contraindicated at this time secondary to active bleeding Discharge Planning Pending nephrology clearance. Pending psych consultation. Problem Qualifiers (1) Diarrhea: Qualified Codes: R19.7 - Diarrhea, unspecified French Elliott MD Mar 12, 2017 16:28
[2017-03-12 20:00] VITALS: BP 164/80; PULSE 66; PULSE 73; RESP 16; TEMP 98.6; O2SAT 92
[2017-03-13] VITALS (8 sets, daily range): BP systolic 126–144; BP diastolic 59–69; PULSE 54–70; RESP 16–19; TEMP 97.5–98.7; O2SAT 91–97
[2017-03-13] MEDS: SODIUM CHLORIDE 23.4% INJ 38.5 MEQ in WATER STERILE FOR INJ 1,000 ML IV SCH (07:29)
[2017-03-13] MEDS: PANTOPRAZOLE SODIUM 40 MG VIAL IV PUSH SCH (08:17)
[2017-03-13] MEDS: CHOLESTYRAMINE 4 GM PACKET PO SCH ×2 (08:17→20:52)
[2017-03-13] MEDS: LOSARTAN 25 MG TAB PO SCH (08:18)
[2017-03-13] MEDS: CHOLECALCIFEROL (VIT D3) 5000 UNIT CAP PO SCH (08:18)
[2017-03-13] MEDS: FERROUS SULFATE 325 MG (65 MG ELEMENTAL IRON) TAB PO SCH (08:18)
[2017-03-13] MEDS: PRAVASTATIN SOD 40 MG TAB PO SCH (08:18)
[2017-03-13] MEDS: LACTOBACILLUS ACIDOPHILUS TAB PO SCH ×3 (08:18→17:20)
[2017-03-13] MEDS: hydrALAZINE HCL 10 MG TAB PO SCH ×3 (08:18→17:20)
[2017-03-13] MEDS: CALCIUM/VITAMIN D 250 MG/125 U TAB PO SCH ×2 (08:18→20:51)
[2017-03-13] MEDS: DOCUSATE SODIUM 50 MG/SENNA 8.6 MG TAB PO SCH ×2 (08:18→20:52)
[2017-03-13] MEDS: CARVEDILOL 6.25 MG TAB PO SCH ×2 (08:18→20:52)
[2017-03-13] MEDS: DOXYCYCLINE HYCLATE 100 MG CAP PO SCH ×2 (08:18→20:51)
[2017-03-13] MEDS: CALCITRIOL 0.25 MCG CAP PO SCH (08:18)
[2017-03-13] MEDS: SODIUM CHLORIDE 0.9% FLUSH 10 ML FLUSH IV FLUSH SCH ×2 (08:18→20:52)
[2017-03-13] MEDS: INSULIN ASPART SUPPLEMENTAL SCALE SQ SCH ×4 (09:38→20:52)
--- NOTE | 2017-03-13 11:02 | PD.PSY.CON ---
Provisional Diagnosis Admission Date Feb 28, 2017 at 10:01 [place] I. Adjustment disorder with depressed mood [place] II. Deferred [place] III. COPD, HTN, CHF, A. fib, diabetes, GI bleeding [place] IV. Multiple chronic medical problems [place] V. 55 History of Present Illness Service Psychiatry Consult Requested By Dr. Leigh Reason for Consult Suicidal statement Primary Care Physician [facility] HPI The patient is a 71-year-old man, domicile with his daughter, unemployed, , retired, , with psychiatric history of anxiety, no previous psychiatric hospitalizations, no previous suicidal attempts, not taking any psychotropic at this moment, with past medical history of atrial fibrillation on chronic anticoagulation, AAA, CAD, CHF, COPD, CKD, DM with neuropathy and retinopathy, kidney stones (rt side), multiple colonic polyps- adenomatous/tubulovillous colon polyps, duodenal AVMs, chronic pancreatitis, gastritis/duodenitis, chronic diarrhea, iron deficiency anemia on iron supplement who was sent to the hospital due to abnormal hemoglobin. Patient was told to come to the hospital by his PCP for transfusion.Patient was admitted to the hospital about one month ago secondary to GI bleed in which he had an extensive workup. Patient also has been treated for acute kidney failure , also UTI. Consulted to psychiatry due to suicidal ideation. Allegedly patient made a suicidal statement yesterday in the context of frustration. On psychiatric evaluation today patient is found in his bed, at the beginning irritable, oppositional, stating that he is not crazy and he doesn't need a psychiatrist. Patient says that yesterday he made a mistake, he was upset with the physical therapist "was not making any case to me, when I was telling him that he was hurting me and I was passing out"and he says that he would rather go home and shot himself. Patient says that he doesn't even have a gun at home. He says that he was just very upset, he has been now several days in the hospital, he would love to go back home. She says that he has too many reasons to live for. He says that he has a wonderful family, and he has his kids and and grandkids, who he also enjoys life and been useful. Patient denies depressive symptoms at this moment, denies hopelessness, he denies helplessness , he denies worthlessness, he denies problems with concentration, with energy, he denies suicidal and homicidal ideation. He denies visual and auditory hallucinations. Patient is fully oriented 3, there is no attention deficit, no fluctuation of consciousness, no confusion at this moment. Patient is logical, coherent and relevant. She denies the use of alcohol and illicit drugs. I called his daughter, Mechelle Reyes for collateral information, , who confirms that her father may a suicidal statement under stress in the context of frustration. She says that her father is usually a happy person , who enjoys the life in the company of his family. SHe confirms that the patient doesn't have any psychiatric history, no previous suicidal attempts, no history of self cutting or self mutilating behavior. She feels safe taking the patient back home upon discharge. Review of Systems Constitutional: DENIES: Diaphoretic episodes, Fatigue, Fever, Weight gain, Weight loss, Chills, Dizziness, Change in appetite, Night Sweats Endocrine: DENIES: Heat/cold intolerance, Polydipsia, Polyuria, Polyphagia Eyes: DENIES: Blurred vision, Diplopia, Eye inflammation, Eye pain, Vision loss , Photosensitivity, Double Vision Ears, nose, mouth, throat: DENIES: Tinnitus, Hearing loss, Vertigo, Nasal discharge, Oral lesions, Throat pain, Hoarseness, Ear Pain, Running Nose, Epistaxis, Sinus Pain, Toothache, Odynophagia Respiratory: DENIES: Apneas, Cough, Snoring, Wheezing, Hemoptysis, Sputum production, Shortness of breath Cardiovascular: DENIES: Chest pain, Palpitations, Syncope, Dyspnea on Exertion , PND, Lower Extremity Edema, Orthopnea, Claudication Gastrointestinal: DENIES: Abdominal pain, Black stools, Bloody stools, Constipation, Diarrhea, Nausea, Vomiting, Difficulty Swallowing, Anorexia Genitourinary: DENIES: Sexual dysfunction, Urinary frequency, Urinary incontinence, Urgency, Hematuria, Dysuria, Nocturia, Penile Discharge, Testicular Pain, Testicular Swelling Musculoskeletal: DENIES: Joint pain, Muscle aches, Stiffness, Joint Swelling, Back pain, Neck pain Integumentary: DENIES: Abnormal pigmentation, Nail changes, Pruritus, Rash Hematologic/lymphatic: DENIES: Bruising, Lymphadenopathy Immunologic/allergic: DENIES: Eczema, Urticaria Neurologic: DENIES: Abnormal gait, Headache, Localized weakness, Paresthesias, Seizures, Speech Problems, Tremor, Poor Balance Psychiatric: DENIES: Anxiety, Confusion, Mood changes, Depression, Hallucinations, Agitation, Suicidal Ideation, Homicidal Ideation, Delusions Past Family Social History Coded Allergies: No Known Allergies (Verified Allergy, Unknown, 02/28/17) Active Scripts Pantoprazole (Pantoprazole) 40 Mg Tab, 40 MG PO DAILY for Manage Heartburn, #30 TAB Prov:Asad Franklin MD 01/30/17 Ferrous Sulfate (Ferosul) 325 Mg Tablet, 325 MG PO DAILY, #30 TAB Prov:Brandie Campos MD 11/25/16 Cholecalciferol (Vitamin D3) 5,000 Unit Cap, 5000 UNITS PO DAILY, #30 CAP Prov:Brandie Campos MD 11/25/16 Calcium/Vitamin D (Oyster Shell 250 mg + Vit D Tb) 250 Mg Calcium (625 Mg)-125 Unit Tablet, 500 MG PO Q12HR, #60 TAB Prov:Brandie Campos MD 11/25/16 Calcitriol (Rocaltrol) 0.25 Mcg Cap, 0.5 MCG PO DAILY, #30 CAP Prov:Brandie Campos MD 11/25/16 Carvedilol (Coreg) 3.125 Mg Tab, 3.125 MG PO BID, #60 TAB 3 Refills Prov:Alec Chi MD R2 02/10/16 Reported Medications Losartan (Losartan) 25 Mg Tab, 25 MG PO DAILY for Blood Pressure Management, # 30 TAB 0 Refills 11/19/16 Hydralazine HCl (Hydralazine HCl) 25 Mg Tablet, 10 MG PO TID for Blood Pressure Management, #90 TAB 0 Refills 11/19/16 Warfarin (Warfarin) 5 Mg Tab, 5 MG PO sun for Blood Clot Prevention, # 30 TAB 0 Refills start if repeat labs 02/02 stable and ok by PCP 11/19/16 Warfarin (Warfarin) 2.5 Mg Tab, 2.5 MG PO DAILY, #30 TAB 0 Refills start if repeat labs 02/02 stable and ok by PCP 02/06/16 Pravastatin (Pravastatin) 40 Mg Tab, 40 MG PO DAILY, #30 TAB 0 Refills 02/06/16 Current Medications Medications (Trade) Dose Ordered Sig/Ana Route Start Time Stop Time Status Last Admin (NS Flush) 2 ml UNSCH PRN IV FLUSH 02/28/17 10:00 03/01/17 02:10 (NS Flush) 2 ml BID IV FLUSH 02/28/17 21:00 03/12/17 21:49 (Zofran Inj) 4 mg Q6H PRN IVP 02/28/17 10:00 (Narcan Inj) 0.4 mg UNSCH PRN IV PUSH 02/28/17 10:00 (Valerie-Colace) 1 tab BID PO 02/28/17 21:00 03/13/17 08:18 (Milk Of Magnesia Liq) 30 ml Q12H PRN PO 02/28/17 10:00 (Senokot) 17.2 mg Q12H PRN PO 02/28/17 10:00 (Dulcolax Supp) 10 mg DAILY PRN RECTAL 02/28/17 10:00 (Lactulose Liq) 30 ml DAILY PRN PO 02/28/17 10:00 (D50w (Vial) Inj) 50 ml UNSCH PRN IV PUSH 02/28/17 12:15 (Glucagon Inj) 1 mg UNSCH PRN OTHER 02/28/17 12:15 (NovoLOG SUPPLEMENTAL SCALE) 1 ACHS SLIDING SCALE SQ 02/28/17 17:00 03/13/17 09:38 (Protonix Inj) 40 mg DAILY IV PUSH 02/28/17 12:15 03/12/17 07:57 (Rocaltrol) 0.5 mcg DAILY PO 03/01/17 09:00 03/13/17 08:18 (Oscal-D 250-125) 500 mg Q12HR PO 02/28/17 21:00 03/13/17 08:18 (Vitamin D3) 5,000 units DAILY PO 03/01/17 09:00 03/13/17 08:18 (Ferrous Sulfate) 325 mg DAILY PO 03/01/17 09:00 03/13/17 08:18 (Apresoline) 10 mg TID PO 02/28/17 13:00 03/13/17 08:18 (Cozaar) 25 mg DAILY PO 03/01/17 09:00 03/13/17 08:18 (Pravachol) 40 mg DAILY PO 03/01/17 09:00 03/13/17 08:18 (Tylenol) 500 mg Q6H PRN PO 03/01/17 21:45 (Coreg) 6.25 mg Q12HR PO 03/02/17 21:00 03/13/17 08:18 (Roxicodone) 5 mg Q4H PRN PO 03/02/17 12:00 03/13/17 05:46 (Duoneb Neb) 1 ampule Q2HR NEB PRN NEB 03/05/17 11:00 (Lactinex) 1 tab TID PO 03/07/17 13:00 03/13/17 08:18 (Imodium) 2 mg Q4H PRN PO 03/07/17 10:30 03/10/17 22:02 (Vibramycin) 100 mg BID PO 03/07/17 21:00 03/13/17 08:18 Sodium Chloride 38.5 meq/Sterile Water 1,009.625 ml @ 84 mls/hr Q12H2M IV 03/10/17 17:00 03/13/17 07:29 (Questran 4 Gm Pkt) 4 gm Q12HR PO 03/11/17 21:00 03/13/17 08:17 Family Psych History Patient denies family psychiatric history Social History Patient was born and raised in [place], he lives in [facility], he is , retired, his highest level of education is ninth grade, 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 2) Family support Physical Exam No EPS, no withdrawal symptoms, no stiffness, no tremors Vital Signs Vital Signs Date Time Temp Pulse Resp B/P (MAP) Pulse Ox O2 Delivery O2 Flow Rate FiO2 03/13/17 08:00 98.2 70 17 126/68 (87) 91 03/12/17 20:00 Nasal Cannula 2.00 I/O 03/13/17 03/13/17 03/14/17 08:00 16:00 00:00 Output Total 600 ml Balance -600 ml Lab Results Date/Time Source Procedure Growth Status 03/05/17 15:40 Blood Peripheral Aerobic Blood Culture - Final NO GROWTH IN 5 DAYS Complete 03/05/17 15:40 Blood Peripheral Anaerobic Blood Culture - Final NO GROWTH IN 5 DAYS Complete 03/08/17 21:50 Stool Stool Stool Pus (CHRISTO) - Final FEW WBC'S Complete 03/05/17 04:30 Urine Catheterized Urine Urine Culture - Final 50-100,000 CFU/ML MIXED SILVINA... Complete Mental Status Examination Appearance: Appropriate Consciousness: Alert Orientation: x4 Motor Activity: Normal gait Speech: Unremarkable Language: Adequate Fund of Knowledge: Adequate Attention and Concentration: Adequate Memory: Unremarkable Mood: Appropriate Affect: Appropriate Thought Process & Associations: Intact Thought Content: Appropriate Hallucination Type: None Delusion Type: None Suicidal Ideation: No Suicidal Plan: No Suicidal Intention: No Homicidal Ideation: No Homicidal Plan: No Homicidal Intention: No Insight: Adequate Judgment: Adequate Assessment & Plan Problem List: (1) Adjustment disorder with depressed mood ICD Codes: F43.21 - Adjustment disorder with depressed mood Assessment & Plan: On psychiatric evaluation today the patient at the beginning irritable and oppositional, but sensitive to reassurance and verbal de -escalation. Patient is states that yesterday he made a suicidal attempt by mistake under the context of frustration. Today the patient denies depressive symptoms, he denies anxiety, he denies kusum and psychosis. The patient denies suicidal and homicidal ideation, he denies visual and auditory hallucinations. He is logical, coherent and relevant. Oriented 3. There is no evidence of gross cognitive impairment or delirium. She doesn't have psychiatric history, he doesn't have any previous suicidal attempt, patient doesn't use any illegal drugs or alcohol. He has many identifiable protective factors of suicidality, such as family support, no psychiatric history, no use of psychoactive substances. He definitely doesn't meet criteria for psychiatric admission at this moment. Psychoeducation and support provided. His daughter, intact before collateral information, agrees with this plan. No psychotropics recommended at this moment. Sitter will be discontinued, Consul appreciated. Assessment & Plan Estimated LOS: Demarcus Rowe MD Mar 13, 2017 11:02
--- NOTE | 2017-03-13 13:36 | RADRPT ---
EXAM DATE/TIME: 03/13/2017 12:44 [facility] COMPARISON: CT ABDOMEN & PELVIS W/O CONTRAST, March 01, 2017, 14:01. TRANSCATH IV OCCLUSSION,RIGHT, March 09, 2017, 10:19. F/U THRU EXISTING CATH, RIGHT, March 09, 2017, 11:53. ANGIOGRAM,SELECT ADD VESS EL,RT, March 09, 2017, 11:54. ANGIOGRAM,RENAL,RT W/AORTAGRAM, March 09, 2017, 11:52. CHEST SI NGLE AP, March 04, 2017, 14:51. INDICATIONS : Short of breath, evaluate infiltrate MEDICAL HISTORY : A-fib SURGICAL HISTORY : descending aorta graft ENCOUNTER: Subsequent ACUITY: 1 week PAIN SCORE: 5/10 LOCATION: Bilateral chest FINDINGS: Increased density has developed in the right lung base. Some minimal airspace disease is also noted i n the left lung base. Heart and mediastinal structures are stable. Endovascular thoracic aortic stent again noted. CONCLUSION: Developing opacity in the right lung base characteristic of acute air space disease. Minimal left basilar airspace disease. Following stable chest Chuckie Mckeon MD on March 13, 2017 at 13:26 Board Certified Radiologist. This report was verified electronically.
[2017-03-13 13:54] LABS: AUTOMATED NEUTROPHIL # 7.5 TH/MM3 (1.8-7.7); BASOPHIL # 0.1 TH/MM3 (0-0.2); BASOPHIL % 1.2 % (0.0-2.0); EOSINOPHIL # 0.2 TH/MM3 (0-0.4); EOSINOPHIL % 2.2 % (0.0-4.0); HEMATOCRIT 28.6 % (39.0-51.0); HEMO FLAGS DIFF FINAL; LYMPH % 14.4 % (9.0-44.0); LYMPHOCYTE # 1.5 TH/MM3 (1.0-4.8); MEAN CELL VOLUME 89.3 FL (80.0-100.0); MEAN CORPUSCULAR HEMOGLOBIN 29.2 PG (27.0-34.0); MEAN CORPUSCULAR HGB CONC 32.7 % (32.0-36.0); MONO % 8.4 % (0.0-8.0); NEUT % 73.8 % (16.0-70.0); PLATELET COUNT 147 TH/MM3 (150-450); WHITE BLOOD COUNT 10.1 TH/MM3 (4.0-11.0)
[2017-03-13 14:15] LABS: ALT (GPT) 7 U/L (12-78); ANION GAP 8 MEQ/L (5-15); AST (GOT) 13 U/L (15-37); BICARBONATE 23.5 MEQ/L (21.0-32.0); BLOOD UREA NITROGEN 41 MG/DL (7-18); CHLORIDE 111 MEQ/L (98-107); GLOMERULAR FILTRATION RATE 33 ML/MIN (>89); MAGNESIUM 1.5 MG/DL (1.5-2.5); POTASSIUM 3.9 MEQ/L (3.5-5.1); SODIUM (NA) 142 MEQ/L (136-145)
[2017-03-13 14:16] LABS: ALKALINE PHOSPHATASE 123 U/L (45-117); TOTAL BILIRUBIN ADULT 0.3 MG/DL (0.2-1.0)
--- NOTE | 2017-03-13 14:21 | HHI.NPPN ---
Subjective History of Present Illness 71-year-old with peripheral vascular disease and right perinephric hematoma which is enlarging patient has developed acute renal failure and has hyperchloremic metabolic acidosis Additional Remarks Patient is alert, no SOB, feeling better, not in distress. Review of Systems General Constitutional: Fatigue Objective Data Data 03/13/17 03/14/17 19:00 07:00 Output Total 550 ml Balance -550 ml Output Urine Total 550 ml Vital Signs Date Time Temp Pulse Resp B/P (MAP) Pulse Ox O2 Delivery O2 Flow Rate FiO2 03/13/17 12:00 94 Nasal Cannula 2.00 03/13/17 11:00 98.5 54 19 127/59 (81) 94 03/13/17 08:00 98.2 70 17 126/68 (87) 91 03/13/17 08:00 91 Nasal Cannula 2.00 03/13/17 07:58 61 03/13/17 04:00 61 03/13/17 04:00 97.5 63 16 137/66 (89) 92 03/13/17 00:00 56 03/13/17 00:00 97.8 56 16 144/69 (94) 93 03/12/17 20:00 66 03/12/17 20:00 98.6 73 16 164/80 (108) 92 03/12/17 20:00 Nasal Cannula 2.00 03/12/17 16:00 97.3 52 20 144/73 (96) 95 03/12/17 16:00 55 -: 03/13/17 1320 03/13/17 1320 Physical Exam General Appearance: Well Developed, No Acute Distress, Comfortable Neck Neck Exam: Neck Supple Pulmonary Resp Exam: Breath Sounds Equal, No Distress, Rhonchi, Decreased Bases, Diminished Breath Sounds Cardiology CV Exam: Irregular Gastrointestinal/Abdomen GI Exam: Soft, Non-Tender, Bowel Sounds Present Extremeties Extremities Exam: No Edema Neurologic Neuro Exam: Alert, Awake Psychiatric Psych Exam: Appropriate Responses Assessment/Plan Problem List: (1) Acute renal failure ICD Codes: N17.9 - Acute kidney failure, unspecified Status: Acute Plan: Patient had abnormal circulation right kidney embolization was done he has right renal hematoma Creatinine has improved dc plans per primary team Non oliguric, BP is stable. (2) CKD (chronic kidney disease) stage 3, GFR 30-59 ml/min ICD Codes: N18.3 - Chronic kidney disease, stage 3 (moderate) Plan: Monitor output (3) Anemia ICD Codes: D64.9 - Anemia, unspecified Status: Acute Plan: Hematology is following and he has right renal hematoma (4) Atrial fibrillation with RVR ICD Codes: I48.91 - Unspecified atrial fibrillation Status: Acute (5) DM (diabetes mellitus) ICD Codes: E11.9 - DM (diabetes mellitus) Status: Chronic (6) HTN (hypertension) ICD Codes: I10 - HTN (hypertension) Status: Chronic Cecilio Howard MD Mar 13, 2017 14:21
--- NOTE | 2017-03-13 18:01 | HHI.PR ---
Subjective Remarks Patient states diarrhea is much improved. Creatinine trending down. Objective Vitals Vital Signs Date Time Temp Pulse Resp B/P (MAP) Pulse Ox O2 Delivery O2 Flow Rate FiO2 03/13/17 16:00 95 Nasal Cannula 2.00 03/13/17 15:00 97.9 56 19 134/64 (87) 95 03/13/17 12:00 94 Nasal Cannula 2.00 03/13/17 11:00 98.5 54 19 127/59 (81) 94 03/13/17 08:00 98.2 70 17 126/68 (87) 91 03/13/17 08:00 91 Nasal Cannula 2.00 03/13/17 07:58 61 03/13/17 04:00 61 03/13/17 04:00 97.5 63 16 137/66 (89) 92 03/13/17 00:00 56 03/13/17 00:00 97.8 56 16 144/69 (94) 93 03/12/17 20:00 66 03/12/17 20:00 98.6 73 16 164/80 (108) 92 03/12/17 20:00 Nasal Cannula 2.00 I/O 03/12/17 03/12/17 03/12/17 03/13/17 03/13/17 03/13/17 07:00 15:00 23:00 07:00 15:00 23:00 Intake Total 240 ml 720 ml 125 ml Output Total 850 ml 700 ml 600 ml 550 ml Balance -610 ml 720 ml -700 ml -600 ml -550 ml 125 ml Intake Oral 240 ml 720 ml IV Total 125 ml Output Urine Total 850 ml 700 ml 600 ml 550 ml # Bowel Movements 0 1 3 Result Diagram: 03/13/17 1320 03/13/17 1320 Imaging Last Impressions Chest X-Ray 03/13/17 0000 Signed Impressions: Service Date/Time: Monday, March 13, 2017 12:44 - CONCLUSION: Developing opacity in the right lung base characteristic of acute air space disease. Minimal left basilar airspace disease. Following stable chest Chuckie Mckeon MD Renal Ultrasound 03/06/17 0000 Signed Impressions: Service Date/Time: Monday, March 06, 2017 13:01 - CONCLUSION: 1. Subtle interval enlargement of posterior right perinephric hematoma now measuring 11.2 x 7.8 x 7.9 cm in comparison to 11.0 x 8.5 x 5.8 cm on 03/01/17 CT exam. 2. No evidence for obstructive uropathy. 3. Multiple stable bilateral renal cysts similar to recent CT exam, as above. 4. Redemonstration of 2.2 x 0.4 x 2.3 cm bladder calculus. 5. Diffuse bladder wall thickening with enlarged prostate and associated mass effect at the base of the bladder. This may reflect some degree of bladder outlet obstruction. Clifford Sanchez MD Abdomen/Pelvis CT 03/01/17 0000 Signed Impressions: Service Date/Time: , March 01, 2017 14:01 - CONCLUSION: 1. Interval increase in the size of the right perirenal hematoma, now measuring 8.5 cm. 2. Other findings are stable compared to prior CT. Blaze Marshall MD Objective Remarks AAOx3 Clear lungs abdomen mildly distended, non tender to palpation, (+) bowel sounds. No edema in lower extremities Medications and IVs Current Medications Medications (Trade) Dose Ordered Sig/Ana Route Start Time Stop Time Status Last Admin (NS Flush) 2 ml UNSCH PRN IV FLUSH 02/28/17 10:00 03/01/17 02:10 (NS Flush) 2 ml BID IV FLUSH 02/28/17 21:00 03/13/17 20:52 (Zofran Inj) 4 mg Q6H PRN IVP 02/28/17 10:00 (Narcan Inj) 0.4 mg UNSCH PRN IV PUSH 02/28/17 10:00 (Valerie-Colace) 1 tab BID PO 02/28/17 21:00 03/13/17 08:18 (Milk Of Magnesia Liq) 30 ml Q12H PRN PO 02/28/17 10:00 (Senokot) 17.2 mg Q12H PRN PO 02/28/17 10:00 (Dulcolax Supp) 10 mg DAILY PRN RECTAL 02/28/17 10:00 (Lactulose Liq) 30 ml DAILY PRN PO 02/28/17 10:00 (D50w (Vial) Inj) 50 ml UNSCH PRN IV PUSH 02/28/17 12:15 (Glucagon Inj) 1 mg UNSCH PRN OTHER 02/28/17 12:15 (NovoLOG SUPPLEMENTAL SCALE) 1 ACHS SLIDING SCALE SQ 02/28/17 17:00 03/13/17 20:52 (Protonix Inj) 40 mg DAILY IV PUSH 02/28/17 12:15 03/12/17 07:57 (Rocaltrol) 0.5 mcg DAILY PO 03/01/17 09:00 03/13/17 08:18 (Oscal-D 250-125) 500 mg Q12HR PO 02/28/17 21:00 03/13/17 20:51 (Vitamin D3) 5,000 units DAILY PO 03/01/17 09:00 03/13/17 08:18 (Ferrous Sulfate) 325 mg DAILY PO 03/01/17 09:00 03/13/17 08:18 (Apresoline) 10 mg TID PO 02/28/17 13:00 03/13/17 17:20 (Cozaar) 25 mg DAILY PO 03/01/17 09:00 03/13/17 08:18 (Pravachol) 40 mg DAILY PO 03/01/17 09:00 03/13/17 08:18 (Tylenol) 500 mg Q6H PRN PO 03/01/17 21:45 (Coreg) 6.25 mg Q12HR PO 03/02/17 21:00 03/13/17 20:52 (Roxicodone) 5 mg Q4H PRN PO 03/02/17 12:00 03/13/17 20:52 (Duoneb Neb) 1 ampule Q2HR NEB PRN NEB 03/05/17 11:00 (Lactinex) 1 tab TID PO 03/07/17 13:00 03/13/17 17:20 (Imodium) 2 mg Q4H PRN PO 03/07/17 10:30 03/10/17 22:02 (Vibramycin) 100 mg BID PO 03/07/17 21:00 03/13/17 20:51 (Questran 4 Gm Pkt) 4 gm Q12HR PO 03/11/17 21:00 03/13/17 08:17 A/P Problem List: (1) Acute blood loss anemia ICD Code: D62 - Acute posthemorrhagic anemia Status: Resolved (2) GI bleed ICD Code: K92.2 - Gastrointestinal hemorrhage, unspecified Status: Resolved (3) Perinephric hematoma ICD Code: S37.019A - Minor contusion of unspecified kidney, initial encounter Status: Acute (4) HCAP (healthcare-associated pneumonia) ICD Code: J18.9 - Pneumonia, unspecified organism (5) CKD (chronic kidney disease) stage 3, GFR 30-59 ml/min ICD Code: N18.3 - Chronic kidney disease, stage 3 (moderate) (6) ASUNCION (acute kidney injury) ICD Code: N17.9 - Acute kidney failure, unspecified Status: Acute (7) HTN (hypertension) ICD Code: I10 - HTN (hypertension) Status: Chronic (8) Diarrhea ICD Code: R19.7 - Diarrhea, unspecified Status: Acute (9) Suicidal ideation ICD Code: R45.851 - Suicidal ideations Plan: As per PT verbal report the patient stated that he was clinical home and shoot himself. I will consult psychiatry for further evaluation. 03/13 appreciate psych recommendations. Patient does not require inpatient psychiatry hospitalization. Assessment and Plan Acute Blood loss Anemia. Possibly s/t GI bleed vs renal hemorrhage. From the last hospitalization hemoglobin is relatively stable. In January hemoglobin was 8.4 and now is 7.7. Patient does not have any gross bleeding. He does have a positive Hemoccult done in the ED. Patient is also on chronic anticoagulation with Coumadin. S/p 4 units red blood cells. Hemoglobin currently stable. GI and hematology consulted and recommendations appreciated. - Will hold Coumadin for now. Possibly resume at lower dose on discharge. Follow up with hematology. - Protonix. - follow CBC and transfuse as needed. Stable. - Rpt. Colonoscopy end of March as planned. GI signed off. Right perinephric hematoma Noted on last admission. CT abdomen showed spontaneous hemorrhage involving the right mid pole kidney measuring 6.5 cm in size. Repeat CT showed increasing size to 8.5 cm. Appreciate urology consult. - continue to hold Coumadin. Defer to urology and hematology in regards to resuming anticoagulation. The pt is not sure he wants to resume anticoagulation. - follow CBC, if hgb decreases may consider IR embolization. Stable. Renal ultrasound was ordered and as described above, there was enlargement of perinephric hematoma but no signs of obstructive uropathy. there is diffuse bladder wall thickening with enlarged prostate and associated mass effect at the base of the bladder. 03/08 Urology reconsulted by nephrology given that renal function is not improving. Urology recommendations pending. 03/09 the patient is status post IR embolization. Continue to monitor CBC. 03/11 Stable hemoglobin, continue to monitor cbc. HCAP CXR with bilateral mild infiltrates. The patient was recently hospitalized. The patient was initially started on IV vancomycin and IV Zosyn on 03/05/17. Patient also was treated with supplemental oxygen and DuoNeb's as needed. Blood cultures obtained and negative. Patient also treated with incentive spirometry which will be continued. Posteriorly on March 07 IV vancomycin and IV Zosyn were discontinued and the patient was started on oral doxycycline. Bladder Stone/ UTI CT abdomen showed bladder stone measuring 1.61cm on last admit. UA indicative of infection. Sands catheter was placed and urology consulted. However, urine culture was concomitant with contamination. ASUNCION on Chronic Kidney Disease stage 3 - Avoid nephrotoxins. - Strict ins and outs. - start IVFs and monitor. 03/06 Worsening creatinine from 1.4 from admission to 1.9. Nephrology consult. Will start on IV fluids as per nephrology recommendations. started on NS with sodium bicarbonate as per nephrology. Continue to monitor BUN and creatinine and BMP for resolution of acidosis. 03/07 Creatinine Trending up. Nephrology following. Will increase the rate of IV fluids to 100 ml/hr. 03/08 Urology reconsulted due to enlarging perinephric hematoma and no response after IV fluids. 03/09 creatinine now slightly improved. Continue IV fluids as per nephrology recommendations. Creatinine stable at 2.2. Continue IV fluids as per nephrology recommendations. 03/13 as per npehrology patient cleared for DC. Hyperchloremic metabolic acidosis Likely secondary to diarrhea. C. difficile checked and negative. The patient was started on Imodium as needed as well as Lactobacillus acidophilus scheduled. Continue IV fluids, carbon dioxide trending up. Patient currently on half- normal saline with sodium bicarbonate. 03/10 Resolved. Discontinue sodium bicarbonate. Atrial fibrillation/ V tach On chronic anticoagulation with Coumadin. INR is 1.2. The patient has been having problems with bleeding. The pt had a run of V tach vs A fib with aberrancy 03/02. - Will hold Coumadin and follow up with hematology. - telemetry. - increased Coreg to 6.25 mg BID. 03/06 Rate controlled, no reported events of V tach. Diabetes Mellitus With neuropathy and retinopathy. 03/06 Blood sugars stable. Continue SSI and continue to monitor accuchecks. Hypocalcemia Calcium level improved. Replaced with IV Calcium chloride. Continue to monitor calcium levels. Likely decreased secondary to decreased oral intake. Hypomagnesemia Status post replacement with IV magnesium sulfate. Continue to monitor magnesium levels. Given that patient had episode of V. tach. Magnesium should be closer to 2. 03/07 Magnesium level 1.9 Continue to monitor. Diarrhea Patient c/o watery diarrhea which she says has had for a long time. Diarrhea is watery. C diff test oredered and negative. Will reconsult GI. Patient has been started on lactobacillus Acidophilus and loperamide as needed which I will continue but schedule loperamide administration. Stool for one parasites and enteric pathogens were ordered, however lab canceled the order is is as per laboratory policy. HIV 1 and 2 antibody negative. 03/12 Diarrhea resolved - continue Lomotil. Dc Imodium as needed. BPH Renal us shows diffuse bladder wall thickening and enlarged prostate. Urology following. Will start patient on Flomax. Patient might need to be discharged home with sands catheter. Fu urology recommendations. Hypernatremia Will change IV lfuids to 1/4 normal saline. Continue to monitor BMP. 03/12 Resolved, sodium continues to trend down. Tobacco Use - Patient counseled on cessation. DVT prophylaxis- chemical prophylaxis contraindicated at this time secondary to active bleeding Discharge Planning Patient will need rehab upon DC. Discussed with hospice case manager. Dc in am. Problem Qualifiers (1) Diarrhea: Qualified Codes: R19.7 - Diarrhea, unspecified French Elliott MD Mar 13, 2017 18:01
[2017-03-14] VITALS: BP 159/65; PULSE 58; PULSE 63; RESP 18; TEMP 98.2; O2SAT 95
[2017-03-14 04:00] VITALS: BP 135/62; PULSE 53; PULSE 63; RESP 16; TEMP 98; O2SAT 95
[2017-03-14 08:00] VITALS: BP 133/63; PULSE 59; PULSE 60; RESP 20; TEMP 97.7; O2SAT 96
[2017-03-14] MEDS: INSULIN ASPART SUPPLEMENTAL SCALE SQ SCH ×4 (08:00→20:23)
[2017-03-14] MEDS: SODIUM CHLORIDE 0.9% FLUSH 10 ML FLUSH IV FLUSH SCH ×2 (08:28→20:39)
[2017-03-14] MEDS: CHOLESTYRAMINE 4 GM PACKET PO SCH ×2 (08:28→20:40)
[2017-03-14] MEDS: CALCIUM/VITAMIN D 250 MG/125 U TAB PO SCH ×2 (08:29→20:39)
[2017-03-14] MEDS: LOSARTAN 25 MG TAB PO SCH (08:29)
[2017-03-14] MEDS: CARVEDILOL 6.25 MG TAB PO SCH ×2 (08:29→20:39)
[2017-03-14] MEDS: DOCUSATE SODIUM 50 MG/SENNA 8.6 MG TAB PO SCH ×2 (08:29→20:39)
[2017-03-14] MEDS: PRAVASTATIN SOD 40 MG TAB PO SCH (08:29)
[2017-03-14] MEDS: PANTOPRAZOLE SODIUM 40 MG VIAL IV PUSH SCH (08:29)
[2017-03-14] MEDS: CALCITRIOL 0.25 MCG CAP PO SCH (08:29)
[2017-03-14] MEDS: FERROUS SULFATE 325 MG (65 MG ELEMENTAL IRON) TAB PO SCH (08:29)
[2017-03-14] MEDS: LACTOBACILLUS ACIDOPHILUS TAB PO SCH ×3 (08:29→17:07)
[2017-03-14] MEDS: CHOLECALCIFEROL (VIT D3) 5000 UNIT CAP PO SCH (08:29)
[2017-03-14] MEDS: DOXYCYCLINE HYCLATE 100 MG CAP PO SCH ×2 (08:30→20:39)
[2017-03-14] MEDS: hydrALAZINE HCL 10 MG TAB PO SCH ×3 (08:30→17:07)
[2017-03-14 12:00] VITALS: BP 120/63; PULSE 61; PULSE 70; RESP 16; TEMP 98.1; O2SAT 98
--- NOTE | 2017-03-14 12:09 | HHI.NPPN ---
Subjective History of Present Illness 71-year-old with peripheral vascular disease and right perinephric hematoma which is enlarging patient has developed acute renal failure and has hyperchloremic metabolic acidosis Additional Remarks Patient is alert, no SOB, feeling better, not in distress. Review of Systems General Constitutional: Fatigue Objective Data Data Vital Signs Date Time Temp Pulse Resp B/P (MAP) Pulse Ox O2 Delivery O2 Flow Rate FiO2 03/14/17 08:00 97.7 59 20 133/63 (86) 96 03/14/17 08:00 60 03/14/17 04:00 98.0 63 16 135/62 (86) 95 03/14/17 04:00 53 03/14/17 00:00 58 03/14/17 00:00 98.2 63 18 159/65 (96) 95 03/13/17 20:00 98.7 65 16 130/60 (83) 97 03/13/17 20:00 Nasal Cannula 2.00 03/13/17 20:00 62 03/13/17 16:08 57 03/13/17 16:00 95 Nasal Cannula 2.00 03/13/17 15:00 97.9 56 19 134/64 (87) 95 -: 03/13/17 1320 03/13/17 1320 Physical Exam General Appearance: Well Developed, No Acute Distress, Comfortable Neck Neck Exam: Neck Supple Pulmonary Resp Exam: Breath Sounds Equal, No Distress, Rhonchi, Decreased Bases, Diminished Breath Sounds Cardiology CV Exam: Irregular Gastrointestinal/Abdomen GI Exam: Soft, Non-Tender, Bowel Sounds Present Extremeties Extremities Exam: No Edema Neurologic Neuro Exam: Alert, Awake Psychiatric Psych Exam: Appropriate Responses Assessment/Plan Problem List: (1) Acute renal failure ICD Codes: N17.9 - Acute kidney failure, unspecified Status: Acute Plan: Patient had abnormal circulation right kidney embolization was done he has right renal hematoma Creatinine has improved dc plans per primary team Non oliguric, BP is stable. Creatinine declined to 2.0 (2) CKD (chronic kidney disease) stage 3, GFR 30-59 ml/min ICD Codes: N18.3 - Chronic kidney disease, stage 3 (moderate) Plan: Monitor output (3) Anemia ICD Codes: D64.9 - Anemia, unspecified Status: Acute Plan: Hematology is following and he has right renal hematoma (4) Atrial fibrillation with RVR ICD Codes: I48.91 - Unspecified atrial fibrillation Status: Acute (5) DM (diabetes mellitus) ICD Codes: E11.9 - DM (diabetes mellitus) Status: Chronic (6) HTN (hypertension) ICD Codes: I10 - HTN (hypertension) Status: Chronic Cecilio Howard MD Mar 14, 2017 12:09
--- NOTE | 2017-03-14 12:45 | HHI.PYPN ---
Subjective Remarks Patient was revisited today for psychiatric reevaluation, patient is calm, cooperative, very pleasant. Patient was able to reflect about his recent suicidal statement in the medical floor, patient says that he was a mistake, he was this desperate and overwhelmed. He reports okay mood, he says that he wants to get better and go back home with her daughter and her grandkids. Patient denies suicidal and homicidal ideation, he denies visual and auditory hallucinations. Patient is oriented 3, no attention deficit, no fluctuation of consciousness at this moment. Review of Systems Except as stated in HPI: all other systems reviewed are Neg Mental Status Examination Appearance: Appropriate Consciousness: Alert Orientation: x4 Motor Activity: Normal gait Speech: Unremarkable Language: Adequate Fund of Knowledge: Adequate Attention and Concentration: Adequate Memory: Unremarkable Mood: Appropriate Affect: Appropriate Thought Process & Associations: Intact Thought Content: Appropriate Hallucination Type: None Delusion Type: None Suicidal Ideation: No Suicidal Plan: No Suicidal Intention: No Homicidal Ideation: No Homicidal Plan: No Homicidal Intention: No Insight: Adequate Judgment: Adequate Results Labs Test 03/13/17 13:20 White Blood Count 10.1 TH/MM3 Red Blood Count 3.20 MIL/MM3 Hemoglobin 9.4 GM/DL Hematocrit 28.6 % Mean Corpuscular Volume 89.3 FL Mean Corpuscular Hemoglobin 29.2 PG Mean Corpuscular Hemoglobin Concent 32.7 % Red Cell Distribution Width 16.0 % Platelet Count 147 TH/MM3 Mean Platelet Volume 10.7 FL Neutrophils (%) (Auto) 73.8 % Lymphocytes (%) (Auto) 14.4 % Monocytes (%) (Auto) 8.4 % Eosinophils (%) (Auto) 2.2 % Basophils (%) (Auto) 1.2 % Neutrophils # (Auto) 7.5 TH/MM3 Lymphocytes # (Auto) 1.5 TH/MM3 Monocytes # (Auto) 0.9 TH/MM3 Eosinophils # (Auto) 0.2 TH/MM3 Basophils # (Auto) 0.1 TH/MM3 CBC Comment DIFF FINAL Differential Comment Blood Urea Nitrogen 41 MG/DL Creatinine 2.00 MG/DL Random Glucose 166 MG/DL Total Protein 4.4 GM/DL Albumin 1.3 GM/DL Calcium Level 7.5 MG/DL Phosphorus Level 3.7 MG/DL Magnesium Level 1.5 MG/DL Alkaline Phosphatase 123 U/L Aspartate Amino Transf (AST/SGOT) 13 U/L Alanine Aminotransferase (ALT/SGPT) 7 U/L Total Bilirubin 0.3 MG/DL Sodium Level 142 MEQ/L Potassium Level 3.9 MEQ/L Chloride Level 111 MEQ/L Carbon Dioxide Level 23.5 MEQ/L Anion Gap 8 MEQ/L Estimat Glomerular Filtration Rate 33 ML/MIN Date/Time Source Procedure Growth Status 03/05/17 15:40 Blood Peripheral Aerobic Blood Culture - Final NO GROWTH IN 5 DAYS Complete 03/05/17 15:40 Blood Peripheral Anaerobic Blood Culture - Final NO GROWTH IN 5 DAYS Complete 03/08/17 21:50 Stool Stool Stool Pus (CHRISTO) - Final FEW WBC'S Complete 03/05/17 04:30 Urine Catheterized Urine Urine Culture - Final 50-100,000 CFU/ML MIXED SILVINA... Complete Vitals/IOs Vital Signs Date Time Temp Pulse Resp B/P (MAP) Pulse Ox O2 Delivery O2 Flow Rate FiO2 03/14/17 08:00 97.7 59 20 133/63 (86) 96 03/13/17 20:00 Nasal Cannula 2.00 Intake and Output 03/14/17 03/14/17 03/15/17 08:00 16:00 00:00 Output Total 975 ml Balance -975 ml Assessment & Plan Problem List: (1) Adjustment disorder with depressed mood ICD Codes: F43.21 - Adjustment disorder with depressed mood Assessment & Plan: Patient does not present any acute neuropsychiatric symptoms that requires an immediate psychiatric intervention at this moment. Assessment & Plan Estimated LOS: days Justification for Cont. Inpt. Patient does not meet criteria for involuntary psychiatric admission. Psychiatrist signing off. Demarcus Gusman MD Mar 14, 2017 12:45
--- NOTE | 2017-03-14 15:13 | HHI.PR ---
Subjective Remarks Patient states diarrhea came back, however RN states that the stool is hard. Patient denies abdominal pain Objective Vitals Vital Signs Date Time Temp Pulse Resp B/P (MAP) Pulse Ox O2 Delivery O2 Flow Rate FiO2 03/14/17 12:00 98.1 61 16 120/63 (82) 98 03/14/17 08:30 96 Nasal Cannula 2.00 03/14/17 08:00 97.7 59 20 133/63 (86) 96 03/14/17 08:00 60 03/14/17 04:00 98.0 63 16 135/62 (86) 95 03/14/17 04:00 53 03/14/17 00:00 58 03/14/17 00:00 98.2 63 18 159/65 (96) 95 03/13/17 20:00 98.7 65 16 130/60 (83) 97 03/13/17 20:00 Nasal Cannula 2.00 03/13/17 20:00 62 03/13/17 16:08 57 03/13/17 16:00 95 Nasal Cannula 2.00 I/O 03/13/17 03/13/17 03/13/17 03/14/17 03/14/17 03/14/17 07:00 15:00 23:00 07:00 15:00 23:00 Intake Total 845 ml Output Total 600 ml 550 ml 300 ml 975 ml Balance -600 ml -550 ml 545 ml -975 ml Intake Oral 720 ml IV Total 125 ml Output Urine Total 600 ml 550 ml 300 ml 975 ml # Bowel Movements 3 2 1 Result Diagram: 03/13/17 1320 03/13/17 1320 Imaging Last Impressions Chest X-Ray 03/13/17 0000 Signed Impressions: Service Date/Time: Monday, March 13, 2017 12:44 - CONCLUSION: Developing opacity in the right lung base characteristic of acute air space disease. Minimal left basilar airspace disease. Following stable chest Chuckie Mckeon MD Renal Ultrasound 03/06/17 0000 Signed Impressions: Service Date/Time: Monday, March 06, 2017 13:01 - CONCLUSION: 1. Subtle interval enlargement of posterior right perinephric hematoma now measuring 11.2 x 7.8 x 7.9 cm in comparison to 11.0 x 8.5 x 5.8 cm on 03/01/17 CT exam. 2. No evidence for obstructive uropathy. 3. Multiple stable bilateral renal cysts similar to recent CT exam, as above. 4. Redemonstration of 2.2 x 0.4 x 2.3 cm bladder calculus. 5. Diffuse bladder wall thickening with enlarged prostate and associated mass effect at the base of the bladder. This may reflect some degree of bladder outlet obstruction. Clifford Sanchez MD Abdomen/Pelvis CT 03/01/17 0000 Signed Impressions: Service Date/Time: February 14:01 - CONCLUSION: 1. Interval increase in the size of the right perirenal hematoma, now measuring 8.5 cm. 2. Other findings are stable compared to prior CT. Blaze Marshall MD Objective Remarks AAOx3 Clear lungs abdomen mildly distended, non tender to palpation, (+) bowel sounds. No edema in lower extremities Medications and IVs Current Medications Medications (Trade) Dose Ordered Sig/Ana Route Start Time Stop Time Status Last Admin (NS Flush) 2 ml UNSCH PRN IV FLUSH 02/28/17 10:00 03/01/17 02:10 (NS Flush) 2 ml BID IV FLUSH 02/28/17 21:00 03/14/17 08:28 (Zofran Inj) 4 mg Q6H PRN IVP 02/28/17 10:00 (Narcan Inj) 0.4 mg UNSCH PRN IV PUSH 02/28/17 10:00 (Valerie-Colace) 1 tab BID PO 02/28/17 21:00 03/14/17 08:29 (Milk Of Magnesia Liq) 30 ml Q12H PRN PO 02/28/17 10:00 (Senokot) 17.2 mg Q12H PRN PO 02/28/17 10:00 (Dulcolax Supp) 10 mg DAILY PRN RECTAL 02/28/17 10:00 (Lactulose Liq) 30 ml DAILY PRN PO 02/28/17 10:00 (D50w (Vial) Inj) 50 ml UNSCH PRN IV PUSH 02/28/17 12:15 (Glucagon Inj) 1 mg UNSCH PRN OTHER 02/28/17 12:15 (NovoLOG SUPPLEMENTAL SCALE) 1 ACHS SLIDING SCALE SQ 02/28/17 17:00 03/13/17 20:52 (Protonix Inj) 40 mg DAILY IV PUSH 02/28/17 12:15 03/14/17 08:29 (Rocaltrol) 0.5 mcg DAILY PO 03/01/17 09:00 03/14/17 08:29 (Oscal-D 250-125) 500 mg Q12HR PO 02/28/17 21:00 03/14/17 08:29 (Vitamin D3) 5,000 units DAILY PO 03/01/17 09:00 03/14/17 08:29 (Ferrous Sulfate) 325 mg DAILY PO 03/01/17 09:00 03/14/17 08:29 (Apresoline) 10 mg TID PO 02/28/17 13:00 03/14/17 13:29 (Cozaar) 25 mg DAILY PO 03/01/17 09:00 03/14/17 08:29 (Pravachol) 40 mg DAILY PO 03/01/17 09:00 03/14/17 08:29 (Tylenol) 500 mg Q6H PRN PO 03/01/17 21:45 (Coreg) 6.25 mg Q12HR PO 03/02/17 21:00 03/14/17 08:29 (Roxicodone) 5 mg Q4H PRN PO 03/02/17 12:00 03/14/17 13:33 (Duoneb Neb) 1 ampule Q2HR NEB PRN NEB 03/05/17 11:00 (Lactinex) 1 tab TID PO 03/07/17 13:00 03/14/17 13:29 (Imodium) 2 mg Q4H PRN PO 03/07/17 10:30 03/10/17 22:02 (Vibramycin) 100 mg BID PO 03/07/17 21:00 03/14/17 08:30 (Questran 4 Gm Pkt) 4 gm Q12HR PO 03/11/17 21:00 03/13/17 08:17 A/P Problem List: (1) Acute blood loss anemia ICD Code: D62 - Acute posthemorrhagic anemia Status: Resolved (2) GI bleed ICD Code: K92.2 - Gastrointestinal hemorrhage, unspecified Status: Resolved (3) Perinephric hematoma ICD Code: S37.019A - Minor contusion of unspecified kidney, initial encounter Status: Acute (4) HCAP (healthcare-associated pneumonia) ICD Code: J18.9 - Pneumonia, unspecified organism (5) CKD (chronic kidney disease) stage 3, GFR 30-59 ml/min ICD Code: N18.3 - Chronic kidney disease, stage 3 (moderate) (6) ASUNCION (acute kidney injury) ICD Code: N17.9 - Acute kidney failure, unspecified Status: Acute (7) HTN (hypertension) ICD Code: I10 - HTN (hypertension) Status: Chronic (8) Diarrhea ICD Code: R19.7 - Diarrhea, unspecified Status: Acute (9) Suicidal ideation ICD Code: R45.851 - Suicidal ideations Assessment and Plan Acute Blood loss Anemia. Possibly s/t GI bleed vs renal hemorrhage. From the last hospitalization hemoglobin is relatively stable. In January hemoglobin was 8.4 and now is 7.7. Patient does not have any gross bleeding. He does have a positive Hemoccult done in the ED. Patient is also on chronic anticoagulation with Coumadin. S/p 4 units red blood cells. Hemoglobin currently stable. GI and hematology consulted and recommendations appreciated. - Will hold Coumadin for now. Possibly resume at lower dose on discharge. Follow up with hematology. - Protonix. - follow CBC and transfuse as needed. Stable. - Rpt. Colonoscopy end of March as planned. GI signed off. Right perinephric hematoma Noted on last admission. CT abdomen showed spontaneous hemorrhage involving the right mid pole kidney measuring 6.5 cm in size. Repeat CT showed increasing size to 8.5 cm. Appreciate urology consult. - continue to hold Coumadin. Defer to urology and hematology in regards to resuming anticoagulation. The pt is not sure he wants to resume anticoagulation. - follow CBC, if hgb decreases may consider IR embolization. Stable. Renal ultrasound was ordered and as described above, there was enlargement of perinephric hematoma but no signs of obstructive uropathy. there is diffuse bladder wall thickening with enlarged prostate and associated mass effect at the base of the bladder. 03/08 Urology reconsulted by nephrology given that renal function is not improving. Urology recommendations pending. 03/09 the patient is status post IR embolization. Continue to monitor CBC. 03/11 Stable hemoglobin, continue to monitor cbc. HCAP CXR with bilateral mild infiltrates. The patient was recently hospitalized. The patient was initially started on IV vancomycin and IV Zosyn on 03/05/17. Patient also was treated with supplemental oxygen and DuoNeb's as needed. Blood cultures obtained and negative. Patient also treated with incentive spirometry which will be continued. Posteriorly on March 07 IV vancomycin and IV Zosyn were discontinued and the patient was started on oral doxycycline. Bladder Stone/ UTI CT abdomen showed bladder stone measuring 1.61cm on last admit. UA indicative of infection. Sands catheter was placed and urology consulted. However, urine culture was concomitant with contamination. ASUNCION on Chronic Kidney Disease stage 3 - Avoid nephrotoxins. - Strict ins and outs. - start IVFs and monitor. 03/06 Worsening creatinine from 1.4 from admission to 1.9. Nephrology consult. Will start on IV fluids as per nephrology recommendations. started on NS with sodium bicarbonate as per nephrology. Continue to monitor BUN and creatinine and BMP for resolution of acidosis. 03/07 Creatinine Trending up. Nephrology following. Will increase the rate of IV fluids to 100 ml/hr. 03/08 Urology reconsulted due to enlarging perinephric hematoma and no response after IV fluids. 03/09 creatinine now slightly improved. Continue IV fluids as per nephrology recommendations. Creatinine stable at 2.2. Continue IV fluids as per nephrology recommendations. 03/13 as per npehrology patient cleared for DC. Hyperchloremic metabolic acidosis Likely secondary to diarrhea. C. difficile checked and negative. The patient was started on Imodium as needed as well as Lactobacillus acidophilus scheduled. Continue IV fluids, carbon dioxide trending up. Patient currently on half- normal saline with sodium bicarbonate. 03/10 Resolved. Discontinue sodium bicarbonate. Atrial fibrillation/ V tach On chronic anticoagulation with Coumadin. INR is 1.2. The patient has been having problems with bleeding. The pt had a run of V tach vs A fib with aberrancy 03/02. - Will hold Coumadin and follow up with hematology. - telemetry. - increased Coreg to 6.25 mg BID. 03/06 Rate controlled, no reported events of V tach. Diabetes Mellitus With neuropathy and retinopathy. 03/06 Blood sugars stable. Continue SSI and continue to monitor accuchecks. Hypocalcemia Calcium level improved. Replaced with IV Calcium chloride. Continue to monitor calcium levels. Likely decreased secondary to decreased oral intake. Hypomagnesemia Status post replacement with IV magnesium sulfate. Continue to monitor magnesium levels. Given that patient had episode of V. tach. Magnesium should be closer to 2. 03/07 Magnesium level 1.9 Continue to monitor. Diarrhea Patient c/o watery diarrhea which she says has had for a long time. Diarrhea is watery. C diff test oredered and negative. Will reconsult GI. Patient has been started on lactobacillus Acidophilus and loperamide as needed which I will continue but schedule loperamide administration. Stool for one parasites and enteric pathogens were ordered, however lab canceled the order is is as per laboratory policy. HIV 1 and 2 antibody negative. 03/12 Diarrhea resolved - continue Lomotil. Dc Imodium as needed. BPH Renal us shows diffuse bladder wall thickening and enlarged prostate. Urology following. Will start patient on Flomax. Patient might need to be discharged home with sands catheter. Fu urology recommendations. Hypernatremia Will change IV lfuids to 1/4 normal saline. Continue to monitor BMP. 03/12 Resolved, sodium continues to trend down. Tobacco Use - Patient counseled on cessation. DVT prophylaxis- chemical prophylaxis contraindicated at this time secondary to active bleeding Discharge Planning Patient will need rehab upon DC. Discussed with case assistant. Dc in am. Patient still does not have a place available. Problem Qualifiers (1) Diarrhea: Qualified Codes: R19.7 - Diarrhea, unspecified French Elliott MD Mar 14, 2017 15:13
[2017-03-14 16:00] VITALS: BP 146/70; PULSE 73; RESP 20; TEMP 97.4; O2SAT 95
[2017-03-14 20:00] VITALS: BP 149/68; PULSE 57; PULSE 70; RESP 20; TEMP 97.5; O2SAT 94
[2017-03-15] VITALS (7 sets, daily range): BP systolic 140–146; BP diastolic 61–65; PULSE 58–76; RESP 18–20; TEMP 97.6–97.9; O2SAT 92–97
[2017-03-15] MEDS: INSULIN ASPART SUPPLEMENTAL SCALE SQ SCH ×4 (08:00→21:25)
[2017-03-15] MEDS: CARVEDILOL 6.25 MG TAB PO SCH ×2 (08:42→21:26)
[2017-03-15] MEDS: PANTOPRAZOLE SODIUM 40 MG VIAL IV PUSH SCH (08:42)
[2017-03-15] MEDS: CALCIUM/VITAMIN D 250 MG/125 U TAB PO SCH ×2 (08:42→21:26)
[2017-03-15] MEDS: LACTOBACILLUS ACIDOPHILUS TAB PO SCH ×3 (08:42→17:46)
[2017-03-15] MEDS: LOSARTAN 25 MG TAB PO SCH (08:42)
[2017-03-15] MEDS: CALCITRIOL 0.25 MCG CAP PO SCH (08:42)
[2017-03-15] MEDS: hydrALAZINE HCL 10 MG TAB PO SCH ×3 (08:43→17:46)
[2017-03-15] MEDS: CHOLESTYRAMINE 4 GM PACKET PO SCH ×2 (08:43→21:27)
[2017-03-15] MEDS: PRAVASTATIN SOD 40 MG TAB PO SCH (08:43)
[2017-03-15] MEDS: DOXYCYCLINE HYCLATE 100 MG CAP PO SCH ×2 (08:43→21:26)
[2017-03-15] MEDS: FERROUS SULFATE 325 MG (65 MG ELEMENTAL IRON) TAB PO SCH (08:43)
[2017-03-15] MEDS: SODIUM CHLORIDE 0.9% FLUSH 10 ML FLUSH IV FLUSH SCH ×2 (08:44→21:26)
[2017-03-15] MEDS: CHOLECALCIFEROL (VIT D3) 5000 UNIT CAP PO SCH (09:00)
[2017-03-15] MEDS: DOCUSATE SODIUM 50 MG/SENNA 8.6 MG TAB PO SCH ×2 (09:00→21:00)
[2017-03-15] MEDS ORDERED: CARV6.25 PO (10:46)
--- NOTE | 2017-03-15 10:47 | HHI.DCPOC ---
Discharge Care Plan Diagnosis: (1) Atrial fibrillation with RVR (2) Acute blood loss anemia (3) GI bleed (4) Perinephric hematoma (5) HCAP (healthcare-associated pneumonia) (6) Diarrhea (7) Suicidal ideation (8) Adjustment disorder with depressed mood (9) CKD (chronic kidney disease) stage 3, GFR 30-59 ml/min (10) DM (diabetes mellitus) (11) HTN (hypertension) (12) Acute renal failure (13) ASUNCION (acute kidney injury) Goals to Promote Your Health * To prevent worsening of your condition and complications * To maintain your health at the optimal level Directions to Meet Your Goals Take your medications as prescribed Follow your dietary instruction Follow activity as directed Keep your appointments as scheduled Take your immunizations and boosters as scheduled If your symptoms worsen call your PCP, if no PCP go to Urgent Care Center or Emergency Room Smoking is Dangerous to Your Health. Avoid second hand smoke Call the 24-hour hour crisis hotline for domestic abuse at French Elliott MD Mar 15, 2017 10:47
--- NOTE | 2017-03-15 19:08 | HHI.PR ---
Subjective Remarks Diarrhea resolved. no other complaints. Objective Vitals Vital Signs Date Time Temp Pulse Resp B/P (MAP) Pulse Ox O2 Delivery O2 Flow Rate FiO2 03/15/17 16:00 97.9 64 20 143/64 (90) 92 03/15/17 12:00 58 03/15/17 12:00 97.7 66 18 142/61 (88) 96 03/15/17 09:00 69 03/15/17 08:00 94 Nasal Cannula 2.00 03/15/17 08:00 97.8 76 18 141/65 (90) 97 03/15/17 04:00 97.7 64 20 140/63 (88) 93 03/15/17 04:00 60 03/15/17 00:00 58 03/15/17 00:00 97.7 70 20 145/64 (91) 94 03/14/17 20:00 57 03/14/17 20:00 97.5 70 20 149/68 (95) 94 03/14/17 20:00 Nasal Cannula 2.00 I/O 03/14/17 03/14/17 03/14/17 03/15/17 03/15/17 03/15/17 07:00 15:00 23:00 07:00 15:00 23:00 Intake Total 1050 ml 480 ml 720 ml Output Total 975 ml 1000 ml 1000 ml 800 ml Balance -975 ml 50 ml -520 ml -80 ml Intake Oral 1050 ml 480 ml 720 ml Output Urine Total 975 ml 1000 ml 1000 ml 800 ml # Bowel Movements 1 4 2 3 Result Diagram: 03/13/17 1320 03/13/17 1320 Objective Remarks AAOx3 Clear lungs abdomen mildly distended, non tender to palpation, (+) bowel sounds. No edema in lower extremities A/P Problem List: (1) Acute blood loss anemia ICD Code: D62 - Acute posthemorrhagic anemia Status: Resolved (2) GI bleed ICD Code: K92.2 - Gastrointestinal hemorrhage, unspecified Status: Resolved (3) Perinephric hematoma ICD Code: S37.019A - Minor contusion of unspecified kidney, initial encounter Status: Acute (4) HCAP (healthcare-associated pneumonia) ICD Code: J18.9 - Pneumonia, unspecified organism (5) CKD (chronic kidney disease) stage 3, GFR 30-59 ml/min ICD Code: N18.3 - Chronic kidney disease, stage 3 (moderate) (6) ASUNCION (acute kidney injury) ICD Code: N17.9 - Acute kidney failure, unspecified Status: Acute (7) HTN (hypertension) ICD Code: I10 - HTN (hypertension) Status: Chronic (8) Diarrhea ICD Code: R19.7 - Diarrhea, unspecified Status: Acute (9) Suicidal ideation ICD Code: R45.851 - Suicidal ideations Assessment and Plan Acute Blood loss Anemia. Possibly s/t GI bleed vs renal hemorrhage. From the last hospitalization hemoglobin is relatively stable. In January hemoglobin was 8.4 and now is 7.7. Patient does not have any gross bleeding. He does have a positive Hemoccult done in the ED. Patient is also on chronic anticoagulation with Coumadin. S/p 4 units red blood cells. Hemoglobin currently stable. GI and hematology consulted and recommendations appreciated. - Will hold Coumadin for now. Possibly resume at lower dose on discharge. Follow up with hematology. - Protonix. - follow CBC and transfuse as needed. Stable. - Rpt. Colonoscopy end of March as planned. GI signed off. Right perinephric hematoma Noted on last admission. CT abdomen showed spontaneous hemorrhage involving the right mid pole kidney measuring 6.5 cm in size. Repeat CT showed increasing size to 8.5 cm. Appreciate urology consult. - continue to hold Coumadin. Defer to urology and hematology in regards to resuming anticoagulation. The pt is not sure he wants to resume anticoagulation. - follow CBC, if hgb decreases may consider IR embolization. Stable. Renal ultrasound was ordered and as described above, there was enlargement of perinephric hematoma but no signs of obstructive uropathy. there is diffuse bladder wall thickening with enlarged prostate and associated mass effect at the base of the bladder. 03/08 Urology reconsulted by nephrology given that renal function is not improving. Urology recommendations pending. 03/09 the patient is status post IR embolization. Continue to monitor CBC. 03/11 Stable hemoglobin, continue to monitor cbc. HCAP CXR with bilateral mild infiltrates. The patient was recently hospitalized. The patient was initially started on IV vancomycin and IV Zosyn on 03/05/17. Patient also was treated with supplemental oxygen and DuoNeb's as needed. Blood cultures obtained and negative. Patient also treated with incentive spirometry which will be continued. Posteriorly on March 07 IV vancomycin and IV Zosyn were discontinued and the patient was started on oral doxycycline. Bladder Stone/ UTI CT abdomen showed bladder stone measuring 1.61cm on last admit. UA indicative of infection. Sands catheter was placed and urology consulted. However, urine culture was concomitant with contamination. ASUNCION on Chronic Kidney Disease stage 3 - Avoid nephrotoxins. - Strict ins and outs. - start IVFs and monitor. 03/06 Worsening creatinine from 1.4 from admission to 1.9. Nephrology consult. Will start on IV fluids as per nephrology recommendations. started on NS with sodium bicarbonate as per nephrology. Continue to monitor BUN and creatinine and BMP for resolution of acidosis. 03/07 Creatinine Trending up. Nephrology following. Will increase the rate of IV fluids to 100 ml/hr. 03/08 Urology reconsulted due to enlarging perinephric hematoma and no response after IV fluids. 03/09 creatinine now slightly improved. Continue IV fluids as per nephrology recommendations. Creatinine stable at 2.2. Continue IV fluids as per nephrology recommendations. 03/13 as per npehrology patient cleared for DC. Hyperchloremic metabolic acidosis Likely secondary to diarrhea. C. difficile checked and negative. The patient was started on Imodium as needed as well as Lactobacillus acidophilus scheduled. Continue IV fluids, carbon dioxide trending up. Patient currently on half- normal saline with sodium bicarbonate. 12 Resolved. Discontinue sodium bicarbonate. Atrial fibrillation/ V tach On chronic anticoagulation with Coumadin. INR is 1.2. The patient has been having problems with bleeding. The pt had a run of V tach vs A fib with aberrancy 03/02. - Will hold Coumadin and follow up with hematology. - telemetry. - increased Coreg to 6.25 mg BID. 03/06 Rate controlled, no reported events of V tach. Diabetes Mellitus With neuropathy and retinopathy. 03/06 Blood sugars stable. Continue SSI and continue to monitor accuchecks. Hypocalcemia Calcium level improved. Replaced with IV Calcium chloride. Continue to monitor calcium levels. Likely decreased secondary to decreased oral intake. Hypomagnesemia Status post replacement with IV magnesium sulfate. Continue to monitor magnesium levels. Given that patient had episode of V. tach. Magnesium should be closer to 2. 03/07 Magnesium level 1.9 Continue to monitor. Diarrhea Patient c/o watery diarrhea which she says has had for a long time. Diarrhea is watery. C diff test oredered and negative. Will reconsult GI. Patient has been started on lactobacillus Acidophilus and loperamide as needed which I will continue but schedule loperamide administration. Stool for one parasites and enteric pathogens were ordered, however lab canceled the order is is as per laboratory policy. HIV 1 and 2 antibody negative. / Diarrhea resolved - continue Lomotil. Dc Imodium as needed. BPH Renal us shows diffuse bladder wall thickening and enlarged prostate. Urology following. Will start patient on Flomax. Patient might need to be discharged home with sands catheter. Fu urology recommendations. Hypernatremia Will change IV lfuids to 1/4 normal saline. Continue to monitor BMP. / Resolved, sodium continues to trend down. Tobacco Use - Patient counseled on cessation. DVT prophylaxis- chemical prophylaxis contraindicated at this time secondary to active bleeding Discharge Planning Patient will need rehab upon DC. Discussed with assistant case manager. Dc in am. Patient still does not have a place available. Problem Qualifiers (1) Diarrhea: Qualified Codes: R19.7 - Diarrhea, unspecified French Elliott MD Mar 15, 2017 19:08
[2017-03-16] VITALS (8 sets, daily range): BP systolic 138–156; BP diastolic 64–72; PULSE 51–65; RESP 16–20; TEMP 97.2–97.7; O2SAT 94–96
[2017-03-16] MEDS: INSULIN ASPART SUPPLEMENTAL SCALE SQ SCH ×4 (08:00→21:32)
[2017-03-16] MEDS: DOCUSATE SODIUM 50 MG/SENNA 8.6 MG TAB PO SCH ×2 (09:00→21:00)
[2017-03-16] MEDS: DOXYCYCLINE HYCLATE 100 MG CAP PO SCH ×2 (09:03→21:31)
[2017-03-16] MEDS: CALCITRIOL 0.25 MCG CAP PO SCH (09:03)
[2017-03-16] MEDS: LACTOBACILLUS ACIDOPHILUS TAB PO SCH ×3 (09:04→17:43)
[2017-03-16] MEDS: CALCIUM/VITAMIN D 250 MG/125 U TAB PO SCH ×2 (09:04→21:31)
[2017-03-16] MEDS: PRAVASTATIN SOD 40 MG TAB PO SCH (09:04)
[2017-03-16] MEDS: CHOLECALCIFEROL (VIT D3) 5000 UNIT CAP PO SCH (09:04)
[2017-03-16] MEDS: hydrALAZINE HCL 10 MG TAB PO SCH ×3 (09:04→17:43)
[2017-03-16] MEDS: LOSARTAN 25 MG TAB PO SCH (09:04)
[2017-03-16] MEDS: CARVEDILOL 6.25 MG TAB PO SCH ×2 (09:05→21:31)
[2017-03-16] MEDS: FERROUS SULFATE 325 MG (65 MG ELEMENTAL IRON) TAB PO SCH (09:05)
[2017-03-16] MEDS: CHOLESTYRAMINE 4 GM PACKET PO SCH ×2 (09:05→21:31)
[2017-03-16] MEDS: PANTOPRAZOLE SODIUM 40 MG VIAL IV PUSH SCH (09:06)
[2017-03-16] MEDS: SODIUM CHLORIDE 0.9% FLUSH 10 ML FLUSH IV FLUSH SCH ×2 (09:07→21:34)
--- NOTE | 2017-03-16 14:55 | HHI.PR ---
Subjective Remarks denies cp/sob Denies diarrhea Objective Vitals Vital Signs Date Time Temp Pulse Resp B/P (MAP) Pulse Ox O2 Delivery O2 Flow Rate FiO2 03/16/17 12:06 51 03/16/17 12:00 97.6 65 19 151/72 (98) 95 03/16/17 11:00 96 Nasal Cannula 2.00 03/16/17 08:00 97.2 65 19 147/64 (91) 95 03/16/17 08:00 52 03/16/17 04:00 97.7 59 20 146/66 (92) 94 03/16/17 00:00 97.6 60 16 138/64 (88) 94 03/16/17 00:00 57 03/16/17 00:00 Nasal Cannula 2.00 03/15/17 20:00 Nasal Cannula 2.00 03/15/17 20:00 97.6 62 20 146/65 (92) 95 03/15/17 20:00 59 03/15/17 16:00 97.9 64 20 143/64 (90) 92 I/O 03/15/17 03/15/17 03/15/17 03/16/17 03/16/17 03/16/17 07:00 15:00 23:00 07:00 15:00 23:00 Intake Total 480 ml 720 ml Output Total 1000 ml 800 ml 700 ml Balance -520 ml -80 ml -700 ml Intake Oral 480 ml 720 ml Output Urine Total 1000 ml 800 ml 700 ml # Bowel Movements 2 3 Result Diagram: 03/13/17 1320 03/13/17 1320 Objective Remarks AAOx3 Clear lungs abdomen mildly distended, non tender to palpation, (+) bowel sounds. No edema in lower extremities A/P Problem List: (1) Acute blood loss anemia ICD Code: D62 - Acute posthemorrhagic anemia Status: Resolved (2) GI bleed ICD Code: K92.2 - Gastrointestinal hemorrhage, unspecified Status: Resolved (3) Perinephric hematoma ICD Code: S37.019A - Minor contusion of unspecified kidney, initial encounter Status: Acute (4) HCAP (healthcare-associated pneumonia) ICD Code: J18.9 - Pneumonia, unspecified organism (5) CKD (chronic kidney disease) stage 3, GFR 30-59 ml/min ICD Code: N18.3 - Chronic kidney disease, stage 3 (moderate) (6) ASUNCION (acute kidney injury) ICD Code: N17.9 - Acute kidney failure, unspecified Status: Acute (7) HTN (hypertension) ICD Code: I10 - HTN (hypertension) Status: Chronic (8) Diarrhea ICD Code: R19.7 - Diarrhea, unspecified Status: Resolved (9) Suicidal ideation ICD Code: R45.851 - Suicidal ideations Status: Resolved Assessment and Plan Acute Blood loss Anemia. Possibly s/t GI bleed vs renal hemorrhage. From the last hospitalization hemoglobin is relatively stable. In January hemoglobin was 8.4 and now is 7.7. Patient does not have any gross bleeding. He does have a positive Hemoccult done in the ED. Patient is also on chronic anticoagulation with Coumadin. S/p 4 units red blood cells. Hemoglobin currently stable. GI and hematology consulted and recommendations appreciated. - Will hold Coumadin for now. Possibly resume at lower dose on discharge. Follow up with hematology. - Protonix. - follow CBC and transfuse as needed. Stable. - Rpt. Colonoscopy end of March as planned. GI signed off. Right perinephric hematoma Noted on last admission. CT abdomen showed spontaneous hemorrhage involving the right mid pole kidney measuring 6.5 cm in size. Repeat CT showed increasing size to 8.5 cm. Appreciate urology consult. - continue to hold Coumadin. Defer to urology and hematology in regards to resuming anticoagulation. The pt is not sure he wants to resume anticoagulation. - follow CBC, if hgb decreases may consider IR embolization. Stable. Renal ultrasound was ordered and as described above, there was enlargement of perinephric hematoma but no signs of obstructive uropathy. there is diffuse bladder wall thickening with enlarged prostate and associated mass effect at the base of the bladder. 03/08 Urology reconsulted by nephrology given that renal function is not improving. Urology recommendations pending. 03/09 the patient is status post IR embolization. Continue to monitor CBC. 03/11 Stable hemoglobin, continue to monitor cbc. HCAP CXR with bilateral mild infiltrates. The patient was recently hospitalized. The patient was initially started on IV vancomycin and IV Zosyn on 03/05/17. Patient also was treated with supplemental oxygen and DuoNeb's as needed. Blood cultures obtained and negative. Patient also treated with incentive spirometry which will be continued. Posteriorly on March 07 IV vancomycin and IV Zosyn were discontinued and the patient was started on oral doxycycline. Bladder Stone/ UTI CT abdomen showed bladder stone measuring 1.61cm on last admit. UA indicative of infection. Sands catheter was placed and urology consulted. However, urine culture was concomitant with contamination. ASUNCION on Chronic Kidney Disease stage 3 - Avoid nephrotoxins. - Strict ins and outs. - start IVFs and monitor. 03/06 Worsening creatinine from 1.4 from admission to 1.9. Nephrology consult. Will start on IV fluids as per nephrology recommendations. started on NS with sodium bicarbonate as per nephrology. Continue to monitor BUN and creatinine and BMP for resolution of acidosis. 03/07 Creatinine Trending up. Nephrology following. Will increase the rate of IV fluids to 100 ml/hr. 03/08 Urology reconsulted due to enlarging perinephric hematoma and no response after IV fluids. 03/09 creatinine now slightly improved. Continue IV fluids as per nephrology recommendations. Creatinine stable at 2.2. Continue IV fluids as per nephrology recommendations. 03/13 as per npehrology patient cleared for DC. Hyperchloremic metabolic acidosis Likely secondary to diarrhea. C. difficile checked and negative. The patient was started on Imodium as needed as well as Lactobacillus acidophilus scheduled. Continue IV fluids, carbon dioxide trending up. Patient currently on half- normal saline with sodium bicarbonate. 03/10 Resolved. Discontinue sodium bicarbonate. Atrial fibrillation/ V tach On chronic anticoagulation with Coumadin. INR is 1.2. The patient has been having problems with bleeding. The pt had a run of V tach vs A fib with aberrancy 03/02. - Will hold Coumadin and follow up with hematology. - telemetry. - increased Coreg to 6.25 mg BID. 03/06 Rate controlled, no reported events of V tach. Diabetes Mellitus With neuropathy and retinopathy. 03/06 Blood sugars stable. Continue SSI and continue to monitor accuchecks. Hypocalcemia Calcium level improved. Replaced with IV Calcium chloride. Continue to monitor calcium levels. Likely decreased secondary to decreased oral intake. Hypomagnesemia Status post replacement with IV magnesium sulfate. Continue to monitor magnesium levels. Given that patient had episode of V. tach. Magnesium should be closer to 2. 03/07 Magnesium level 1.9 Continue to monitor. Diarrhea Patient c/o watery diarrhea which she says has had for a long time. Diarrhea is watery. C diff test oredered and negative. Will reconsult GI. Patient has been started on lactobacillus Acidophilus and loperamide as needed which I will continue but schedule loperamide administration. Stool for one parasites and enteric pathogens were ordered, however lab canceled the order is is as per laboratory policy. HIV 1 and 2 antibody negative. 12/ Diarrhea resolved - continue Lomotil. Dc Imodium as needed. BPH Renal us shows diffuse bladder wall thickening and enlarged prostate. Urology following. Will start patient on Flomax. Patient might need to be discharged home with sands catheter. Fu urology recommendations. Hypernatremia Will change IV lfuids to 1/4 normal saline. Continue to monitor BMP. / Resolved, sodium continues to trend down. Tobacco Use - Patient counseled on cessation. DVT prophylaxis- chemical prophylaxis contraindicated at this time secondary to active bleeding Discharge Planning Patient will need rehab upon DC. Discussed with telephonic case manager. Dc in am. Patient still does not have a place available. Problem Qualifiers (1) Diarrhea: Qualified Codes: R19.7 - Diarrhea, unspecified French Elliott MD Mar 16, 2017 14:55
[2017-03-17] VITALS (7 sets, daily range): BP systolic 127–151; BP diastolic 63–77; PULSE 56–71; RESP 17–20; TEMP 97–98.2; O2SAT 92–96
[2017-03-17] MEDS: INSULIN ASPART SUPPLEMENTAL SCALE SQ SCH ×4 (08:00→21:27)
[2017-03-17] MEDS: FERROUS SULFATE 325 MG (65 MG ELEMENTAL IRON) TAB PO SCH (09:43)
[2017-03-17] MEDS: LACTOBACILLUS ACIDOPHILUS TAB PO SCH ×3 (09:43→17:38)
[2017-03-17] MEDS: CARVEDILOL 6.25 MG TAB PO SCH ×2 (09:43→21:26)
[2017-03-17] MEDS: CHOLECALCIFEROL (VIT D3) 5000 UNIT CAP PO SCH (09:43)
[2017-03-17] MEDS: PRAVASTATIN SOD 40 MG TAB PO SCH (09:43)
[2017-03-17] MEDS: PANTOPRAZOLE SODIUM 40 MG VIAL IV PUSH SCH (09:43)
[2017-03-17] MEDS: CALCITRIOL 0.25 MCG CAP PO SCH (09:43)
[2017-03-17] MEDS: LOSARTAN 25 MG TAB PO SCH (09:43)
[2017-03-17] MEDS: CALCIUM/VITAMIN D 250 MG/125 U TAB PO SCH ×2 (09:43→21:26)
[2017-03-17] MEDS: SODIUM CHLORIDE 0.9% FLUSH 10 ML FLUSH IV FLUSH SCH ×2 (09:44→21:29)
[2017-03-17] MEDS: CHOLESTYRAMINE 4 GM PACKET PO SCH ×2 (09:44→21:27)
[2017-03-17] MEDS: hydrALAZINE HCL 10 MG TAB PO SCH ×3 (09:44→17:38)
[2017-03-17] MEDS: DOXYCYCLINE HYCLATE 100 MG CAP PO SCH ×2 (09:44→21:26)
[2017-03-17] MEDS: DOCUSATE SODIUM 50 MG/SENNA 8.6 MG TAB PO SCH ×2 (09:44→21:00)
--- NOTE | 2017-03-17 16:53 | HHI.PR ---
Subjective Remarks Patient seen this morning around 10:30 AM. Says he is feeling all right. Denies any chest pain or shortness of breath. Denies any current bleeding. Still does not feel like he will be able to go home at this time. Objective Vital Signs Date Time Temp Pulse Resp B/P (MAP) Pulse Ox O2 Delivery O2 Flow Rate FiO2 03/17/17 15:55 Nasal Cannula 2.00 03/17/17 12:00 97.9 59 18 137/63 (87) 95 03/17/17 08:00 98.2 68 18 127/71 (89) 92 03/17/17 04:00 57 03/17/17 04:00 97.6 71 20 144/77 (99) 94 03/17/17 00:36 59 03/17/17 00:00 97.9 64 20 148/65 (92) 95 03/16/17 21:00 Nasal Cannula 2.00 03/16/17 20:00 62 03/16/17 20:00 97.7 60 20 156/67 (96) 96 I/O 03/16/17 03/16/17 03/16/17 03/17/17 03/17/17 03/17/17 07:00 15:00 23:00 07:00 15:00 23:00 Intake Total 1200 ml 480 ml Output Total 700 ml 800 ml 550 ml Balance -700 ml 400 ml -70 ml Intake Oral 1200 ml 480 ml Output Urine Total 700 ml 800 ml 550 ml # Bowel Movements 4 1 Result Diagram: 03/13/17 1320 03/13/17 1320 Objective Remarks GENERAL: Patient sitting up in bed. Appears comfortable. SKIN: Warm and dry. HEAD: Normocephalic. EYES: No scleral icterus. No injection or drainage. NECK: Supple, trachea midline. No JVD. CARDIOVASCULAR: Regular rate and rhythm without murmurs, gallops, or rubs. RESPIRATORY: Breath sounds equal bilaterally. No accessory muscle use. GASTROINTESTINAL: Abdomen soft, non-tender, nondistended. MUSCULOSKELETAL: No cyanosis, or edema. BACK: Nontender without obvious deformity. No CVA tenderness. A/P Assessment and Plan Acute Blood loss Anemia. Possibly s/t GI bleed vs renal hemorrhage. From the last hospitalization hemoglobin is relatively stable. In January hemoglobin was 8.4 and now is 7.7. Patient does not have any gross bleeding. He does have a positive Hemoccult done in the ED. Patient is also on chronic anticoagulation with Coumadin. S/p 4 units red blood cells. Hemoglobin currently stable. GI and hematology consulted and recommendations appreciated. - Will hold Coumadin for now. Possibly resume at lower dose on discharge. Follow up with hematology. - Protonix. - follow CBC and transfuse as needed. Stable. - Rpt. Colonoscopy end of March as planned. GI signed off. Right perinephric hematoma Noted on last admission. CT abdomen showed spontaneous hemorrhage involving the right mid pole kidney measuring 6.5 cm in size. Repeat CT showed increasing size to 8.5 cm. Appreciate urology consult. - continue to hold Coumadin. Defer to urology and hematology in regards to resuming anticoagulation. The pt is not sure he wants to resume anticoagulation. - follow CBC, if hgb decreases may consider IR embolization. Stable. Renal ultrasound was ordered and as described above, there was enlargement of perinephric hematoma but no signs of obstructive uropathy. there is diffuse bladder wall thickening with enlarged prostate and associated mass effect at the base of the bladder. 03/08 Urology reconsulted by nephrology given that renal function is not improving. Urology recommendations pending. 03/09 the patient is status post IR embolization. Continue to monitor CBC. 03/17. Recheck hemoglobin tomorrow. //HCAP CXR with bilateral mild infiltrates. The patient was recently hospitalized. The patient was initially started on IV vancomycin and IV Zosyn on 03/05/17. Patient also was treated with supplemental oxygen and DuoNeb's as needed. Blood cultures obtained and negative. Patient also treated with incentive spirometry which will be continued. Posteriorly on March 07 IV vancomycin and IV Zosyn were discontinued and the patient was started on oral doxycycline. //Bladder Stone/ UTI CT abdomen showed bladder stone measuring 1.61cm on last admit. UA indicative of infection. Sands catheter was placed and urology consulted. However, urine culture was concomitant with contamination. //ASUNCION on Chronic Kidney Disease stage 3 - Avoid nephrotoxins. - Strict ins and outs. - start IVFs and monitor. 03/06 Worsening creatinine from 1.4 from admission to 1.9. Nephrology consult. Will start on IV fluids as per nephrology recommendations. started on NS with sodium bicarbonate as per nephrology. Continue to monitor BUN and creatinine and BMP for resolution of acidosis. 03/07 Creatinine Trending up. Nephrology following. Will increase the rate of IV fluids to 100 ml/hr. 03/08 Urology reconsulted due to enlarging perinephric hematoma and no response after IV fluids. 03/09 creatinine now slightly improved. Continue IV fluids as per nephrology recommendations. Creatinine stable at 2.2. Continue IV fluids as per nephrology recommendations. 03/13 as per nephrology patient cleared for DC. Hyperchloremic metabolic acidosis Likely secondary to diarrhea. C. difficile checked and negative. The patient was started on Imodium as needed as well as Lactobacillus acidophilus scheduled. Continue IV fluids, carbon dioxide trending up. Patient currently on half- normal saline with sodium bicarbonate. 03/10 Resolved. Discontinue sodium bicarbonate. = 03/17. Recheck renal profile tomorrow. Atrial fibrillation/ V tach On chronic anticoagulation with Coumadin. INR is 1.2. The patient has been having problems with bleeding. The pt had a run of V tach vs A fib with aberrancy 03/02. - Will hold Coumadin and follow up with hematology. - telemetry. - increased Coreg to 6.25 mg BID. 03/06 Rate controlled, no reported events of V tach. //Diabetes Mellitus With neuropathy and retinopathy. 03/06 Blood sugars stable. Continue SSI and continue to monitor accuchecks. //Hypocalcemia Calcium level improved. Replaced with IV Calcium chloride. Continue to monitor calcium levels. Likely decreased secondary to decreased oral intake. //Hypomagnesemia Status post replacement with IV magnesium sulfate. Continue to monitor magnesium levels. Given that patient had episode of V. tach. Magnesium should be closer to 2. 03/07 Magnesium level 1.9 Continue to monitor. //Diarrhea Patient c/o watery diarrhea which she says has had for a long time. Diarrhea is watery. C diff test oredered and negative. Will reconsult GI. Patient has been started on lactobacillus Acidophilus and loperamide as needed which I will continue but schedule loperamide administration. Stool for one parasites and enteric pathogens were ordered, however lab canceled the order is is as per laboratory policy. HIV 1 and 2 antibody negative. 03/12 Diarrhea resolved - continue Lomotil. Dc Imodium as needed. //BPH Renal us shows diffuse bladder wall thickening and enlarged prostate. Urology following. Will start patient on Flomax. Patient might need to be discharged home with sands catheter. Fu urology recommendations. //Hypernatremia Will change IV lfuids to 1/4 normal saline. Continue to monitor BMP. 03/12 Resolved, sodium continues to trend down. Tobacco Use - Patient counseled on cessation. DVT prophylaxis- chemical prophylaxis contraindicated at this time secondary to active bleeding Discharge Planning Patient will need rehab upon DC. Discussed with correctional case records supervisor again at [facility]. -Awaiting approval for SNF.likely on Sunday. Kadeem Bateman MD Mar 17, 2017 16:53
[2017-03-18] VITALS (7 sets, daily range): BP systolic 117–139; BP diastolic 59–71; PULSE 59–89; RESP 17–20; TEMP 97–98; O2SAT 96–98
[2017-03-18] MEDS: INSULIN ASPART SUPPLEMENTAL SCALE SQ SCH ×4 (08:00→21:16)
[2017-03-18] MEDS: CHOLESTYRAMINE 4 GM PACKET PO SCH ×2 (08:26→21:15)
[2017-03-18] MEDS: CALCIUM/VITAMIN D 250 MG/125 U TAB PO SCH ×2 (08:26→21:14)
[2017-03-18] MEDS: PANTOPRAZOLE SODIUM 40 MG VIAL IV PUSH SCH (08:26)
[2017-03-18] MEDS: LACTOBACILLUS ACIDOPHILUS TAB PO SCH ×3 (08:26→17:53)
[2017-03-18] MEDS: hydrALAZINE HCL 10 MG TAB PO SCH ×3 (08:26→17:53)
[2017-03-18] MEDS: CHOLECALCIFEROL (VIT D3) 5000 UNIT CAP PO SCH (08:26)
[2017-03-18] MEDS: LOSARTAN 25 MG TAB PO SCH (08:27)
[2017-03-18] MEDS: FERROUS SULFATE 325 MG (65 MG ELEMENTAL IRON) TAB PO SCH (08:27)
[2017-03-18] MEDS: DOXYCYCLINE HYCLATE 100 MG CAP PO SCH (08:27)
[2017-03-18] MEDS: SODIUM CHLORIDE 0.9% FLUSH 10 ML FLUSH IV FLUSH SCH ×2 (08:27→21:17)
[2017-03-18] MEDS: PRAVASTATIN SOD 40 MG TAB PO SCH (08:27)
[2017-03-18] MEDS: CARVEDILOL 6.25 MG TAB PO SCH ×2 (08:27→21:14)
[2017-03-18] MEDS: CALCITRIOL 0.25 MCG CAP PO SCH (08:27)
[2017-03-18] MEDS: DOCUSATE SODIUM 50 MG/SENNA 8.6 MG TAB PO SCH ×2 (08:27→08:30)
[2017-03-18 09:52] LABS: AUTOMATED NEUTROPHIL # 9.6 TH/MM3 (1.8-7.7); BASOPHIL # 0.2 TH/MM3 (0-0.2); BASOPHIL % 1.2 % (0.0-2.0); EOSINOPHIL # 0.2 TH/MM3 (0-0.4); EOSINOPHIL % 1.8 % (0.0-4.0); HEMATOCRIT 29.6 % (39.0-51.0); HEMO FLAGS DIFF FINAL; LYMPH % 13.5 % (9.0-44.0); LYMPHOCYTE # 1.8 TH/MM3 (1.0-4.8); MEAN CELL VOLUME 90.8 FL (80.0-100.0); MEAN CORPUSCULAR HEMOGLOBIN 29.2 PG (27.0-34.0); MEAN CORPUSCULAR HGB CONC 32.1 % (32.0-36.0); MONO % 10.5 % (0.0-8.0); PLATELET COUNT 161 TH/MM3 (150-450); RED BLOOD COUNT 3.26 MIL/MM3 (4.50-5.90); RED CELL DISTRIBUTION WIDTH 16.3 % (11.6-17.2); WHITE BLOOD COUNT 13.2 TH/MM3 (4.0-11.0)
[2017-03-18 10:09] LABS: BICARBONATE 21.8 MEQ/L (21.0-32.0); MAGNESIUM 1.5 MG/DL (1.5-2.5); POTASSIUM 4.3 MEQ/L (3.5-5.1)
--- NOTE | 2017-03-18 20:15 | HHI.PR ---
Subjective Remarks patient seen this morning around 11:30 AM. Says he is feeling all right. Denies any chest pain or shortness of breath. Denies any coughing. Denies any dysuria.. Denies any abdominal pain. Objective Vital Signs Date Time Temp Pulse Resp B/P (MAP) Pulse Ox O2 Delivery O2 Flow Rate FiO2 03/18/17 16:00 97.0 64 18 129/61 (83) 98 03/18/17 16:00 61 03/18/17 12:00 98.0 61 20 118/71 (87) 96 03/18/17 08:00 97.3 69 20 132/60 (84) 97 03/18/17 08:00 Nasal Cannula 2.00 03/18/17 08:00 59 03/18/17 04:00 63 03/18/17 04:00 97.4 59 17 136/60 (85) 96 03/18/17 00:14 60 03/18/17 00:00 97.6 60 17 117/59 (78) 96 I/O 03/17/17 03/17/17 03/17/17 03/18/17 03/18/17 03/18/17 07:00 15:00 23:00 07:00 15:00 23:00 Intake Total 480 ml 650 ml 720 ml Output Total 550 ml 850 ml 750 ml 900 ml Balance -70 ml -850 ml -100 ml -180 ml Intake Oral 480 ml 650 ml 720 ml Output Urine Total 550 ml 850 ml 750 ml 900 ml # Bowel Movements 1 1 1 3 Result Diagram: 03/18/17 0811 03/18/17 0811 Objective Remarks GENERAL: Patient sitting up in bed. Appears comfortable.exam unchanged from yesterday. SKIN: Warm and dry. HEAD: Normocephalic. EYES: No scleral icterus. No injection or drainage. NECK: Supple, trachea midline. No JVD. CARDIOVASCULAR: Regular rate and rhythm without murmurs, gallops, or rubs. RESPIRATORY: Breath sounds equal bilaterally. No accessory muscle use. GASTROINTESTINAL: Abdomen soft, non-tender, nondistended. MUSCULOSKELETAL: No cyanosis, or edema. BACK: Nontender without obvious deformity. No CVA tenderness. A/P Assessment and Plan 03/18. Hemoglobin stable. Leukocytosis. I blood cell count 13.2. No signs of infection. Repeat labs tomorrow. //Acute Blood loss Anemia. Possibly s/t GI bleed vs renal hemorrhage. From the last hospitalization hemoglobin is relatively stable. In January hemoglobin was 8.4 and now is 7.7. Patient does not have any gross bleeding. He does have a positive Hemoccult done in the ED. Patient is also on chronic anticoagulation with Coumadin. S/p 4 units red blood cells. Hemoglobin currently stable. GI and hematology consulted and recommendations appreciated. - Will hold Coumadin for now. Possibly resume at lower dose on discharge. Follow up with hematology. - Protonix. - follow CBC and transfuse as needed. Stable. - Rpt. Colonoscopy end of March as planned. GI signed off. //Right perinephric hematoma Noted on last admission. CT abdomen showed spontaneous hemorrhage involving the right mid pole kidney measuring 6.5 cm in size. Repeat CT showed increasing size to 8.5 cm. Appreciate urology consult. - continue to hold Coumadin. Defer to urology and hematology in regards to resuming anticoagulation. The pt is not sure he wants to resume anticoagulation. - follow CBC, if hgb decreases may consider IR embolization. Stable. Renal ultrasound was ordered and as described above, there was enlargement of perinephric hematoma but no signs of obstructive uropathy. there is diffuse bladder wall thickening with enlarged prostate and associated mass effect at the base of the bladder. 03/08 Urology reconsulted by nephrology given that renal function is not improving. Urology recommendations pending. 03/09 the patient is status post IR embolization. Continue to monitor CBC. 03/18. Hemoglobin stable 9.5. No signs of bleeding. //HCAP CXR with bilateral mild infiltrates. The patient was recently hospitalized. The patient was initially started on IV vancomycin and IV Zosyn on 03/05/17. Patient also was treated with supplemental oxygen and DuoNeb's as needed. Blood cultures obtained and negative. Patient also treated with incentive spirometry which will be continued. Posteriorly on March 07 IV vancomycin and IV Zosyn were discontinued and the patient was started on oral doxycycline. //Bladder Stone/ UTI CT abdomen showed bladder stone measuring 1.61cm on last admit. UA indicative of infection. Sands catheter was placed and urology consulted. However, urine culture was concomitant with contamination. //ASUNCION on Chronic Kidney Disease stage 3 - Avoid nephrotoxins. - Strict ins and outs. - start IVFs and monitor. 03/06 Worsening creatinine from 1.4 from admission to 1.9. Nephrology consult. Will start on IV fluids as per nephrology recommendations. started on NS with sodium bicarbonate as per nephrology. Continue to monitor BUN and creatinine and BMP for resolution of acidosis. 03/07 Creatinine Trending up. Nephrology following. Will increase the rate of IV fluids to 100 ml/hr. 03/08 Urology reconsulted due to enlarging perinephric hematoma and no response after IV fluids. 03/09 creatinine now slightly improved. Continue IV fluids as per nephrology recommendations. Creatinine stable at 2.2. Continue IV fluids as per nephrology recommendations. 03/13 as per nephrology patient cleared for DC. //Hyperchloremic metabolic acidosis Likely secondary to diarrhea. C. difficile checked and negative. The patient was started on Imodium as needed as well as Lactobacillus acidophilus scheduled. Continue IV fluids, carbon dioxide trending up. Patient currently on half- normal saline with sodium bicarbonate. 03/10 Resolved. Discontinue sodium bicarbonate. = 03/17. Recheck renal profile tomorrow. //Atrial fibrillation/ V tach On chronic anticoagulation with Coumadin. INR is 1.2. The patient has been having problems with bleeding. The pt had a run of V tach vs A fib with aberrancy 03/02. - Will hold Coumadin and follow up with hematology. - telemetry. - increased Coreg to 6.25 mg BID. 03/06 Rate controlled, no reported events of V tach. //Diabetes Mellitus With neuropathy and retinopathy. 03/06 Blood sugars stable. Continue SSI and continue to monitor accuchecks. //Hypocalcemia Calcium level improved. Replaced with IV Calcium chloride. Continue to monitor calcium levels. Likely decreased secondary to decreased oral intake. = Calcium when corrected is within normal limits //Hypomagnesemia Status post replacement with IV magnesium sulfate. Continue to monitor magnesium levels. Given that patient had episode of V. tach. Magnesium should be closer to 2. 03/07 Magnesium level 1.9 Continue to monitor. = 03/18. Magnesium 1.5. Replace.*Daily replacement. //Diarrhea Patient c/o watery diarrhea which she says has had for a long time. Diarrhea is watery. C diff test oredered and negative. Will reconsult GI. Patient has been started on lactobacillus Acidophilus and loperamide as needed which I will continue but schedule loperamide administration. Stool for one parasites and enteric pathogens were ordered, however lab canceled the order is is as per laboratory policy. HIV 1 and 2 antibody negative. 03/12 Diarrhea resolved - continue Lomotil. Dc Imodium as needed. //BPH Renal us shows diffuse bladder wall thickening and enlarged prostate. Urology following. Will start patient on Flomax. Patient might need to be discharged home with sands catheter. Fu urology recommendations. //Hypernatremia Will change IV lfuids to 1/4 normal saline. Continue to monitor BMP. / Resolved, sodium continues to trend down. Tobacco Use - Patient counseled on cessation. DVT prophylaxis- chemical prophylaxis contraindicated at this time secondary to active bleeding Discharge Planning Patient will need rehab upon DC. Discussed with correctional counselor/case manager again at [facility]. -Awaiting approval for SNF.likely tomorrow Kadeem Bateman MD Mar 18, 2017 20:15
[2017-03-18] MEDS ORDERED: MAGN400T2 PO (20:17)
[2017-03-18] MEDS ORDERED: MAGNESIUM SULFATE 1 GM PREMIX 100 ML IV ONE (21:00)
[2017-03-19] VITALS: BP 130/64; PULSE 58; PULSE 61; RESP 17; TEMP 97.2; O2SAT 97
[2017-03-19 04:00] VITALS: BP 114/61; PULSE 20; PULSE 60; RESP 17; TEMP 97.7; O2SAT 99
[2017-03-19 08:00] VITALS: BP 130/63; PULSE 53; RESP 20; TEMP 97.5; O2SAT 97
[2017-03-19] MEDS: INSULIN ASPART SUPPLEMENTAL SCALE SQ SCH ×5 (08:00→20:52)
[2017-03-19] MEDS: CARVEDILOL 6.25 MG TAB PO SCH ×2 (08:33→20:50)
[2017-03-19] MEDS: CHOLECALCIFEROL (VIT D3) 5000 UNIT CAP PO SCH (08:34)
[2017-03-19] MEDS: CALCITRIOL 0.25 MCG CAP PO SCH (08:34)
[2017-03-19] MEDS: CHOLESTYRAMINE 4 GM PACKET PO SCH ×2 (08:34→20:51)
[2017-03-19] MEDS: hydrALAZINE HCL 10 MG TAB PO SCH ×3 (08:34→17:51)
[2017-03-19] MEDS: CALCIUM/VITAMIN D 250 MG/125 U TAB PO SCH ×2 (08:34→20:50)
[2017-03-19] MEDS: LOSARTAN 25 MG TAB PO SCH (08:34)
[2017-03-19] MEDS: MAGNESIUM OXIDE 400 MG TAB PO SCH (08:35)
[2017-03-19] MEDS: FERROUS SULFATE 325 MG (65 MG ELEMENTAL IRON) TAB PO SCH (08:35)
[2017-03-19] MEDS: LACTOBACILLUS ACIDOPHILUS TAB PO SCH ×3 (08:35→17:51)
[2017-03-19] MEDS: SODIUM CHLORIDE 0.9% FLUSH 10 ML FLUSH IV FLUSH SCH ×2 (08:48→20:51)
[2017-03-19] MEDS: PRAVASTATIN SOD 40 MG TAB PO SCH (08:49)
[2017-03-19] MEDS: PANTOPRAZOLE SODIUM 40 MG VIAL IV PUSH SCH (08:49)
--- NOTE | 2017-03-19 10:50 | HHI.DS ---
Discharge Summary Admission Date Feb 28, 2017 at 10:01 Discharge Date: Mar 20, 2017 Admitting Diagnosis GI bleed/severe anemia (1) Acute blood loss anemia ICD Code: D62 - Acute posthemorrhagic anemia Status: Resolved (2) GI bleed ICD Code: K92.2 - Gastrointestinal hemorrhage, unspecified Status: Resolved (3) Perinephric hematoma ICD Code: S37.019A - Minor contusion of unspecified kidney, initial encounter Status: Acute (4) HCAP (healthcare-associated pneumonia) ICD Code: J18.9 - Pneumonia, unspecified organism (5) CKD (chronic kidney disease) stage 3, GFR 30-59 ml/min ICD Code: N18.3 - Chronic kidney disease, stage 3 (moderate) (6) ASUNCION (acute kidney injury) ICD Code: N17.9 - Acute kidney failure, unspecified Status: Acute (7) HTN (hypertension) ICD Code: I10 - HTN (hypertension) Status: Chronic (8) Diarrhea ICD Code: R19.7 - Diarrhea, unspecified Status: Resolved (9) Suicidal ideation ICD Code: R45.851 - Suicidal ideations Status: Resolved Procedures EGD, colonoscopy. Please see report. IR performed embolization of right renal blood vessels on 03/09. Please see report. Brief History - From Admission This is a 71-year-old male with past medical history of atrial fibrillation on chronic anticoagulation, AAA, anxiety, CAD, CHF, COPD, CKD, DM with neuropathy and retinopathy, kidney stones (rt side), multiple colonic polyps- adenomatous/ tubulovillous colon polyps, duodenal AVMs, chronic pancreatitis, gastritis/ duodenitis, chronic diarrhea, iron deficiency anemia on iron supplement who was sent to the hospital due to abnormal hemoglobin. Patient was told to come to the hospital by his PCP for transfusion. Patient was admitted to the hospital about one month ago secondary to GI bleed in which he had an extensive workup. During that hospitalization she was also have a repeat colonoscopy due to poor prep but patient refused this. I addressed this with the patient he stated he never refused any procedure. Patient stated that he wants everything done to help him. Patient had no complaints. He denies any GI bleed. He stated that he felt fine after his discharge but was told by his primary care physician to go to the emergency department. Patient had a Hemoccult stool done by the ER physician which was positive. During my examination I noticed patient has chest congestion and he stated that he started to have a cold about 5 days ago. Denies any fevers. No other complaints in regards to this. All other review system reviewed and negative. CBC/BMP: 03/18/17 0811 03/18/17 0811 Significant Findings Laboratory Tests Test 03/18/17 08:11 White Blood Count 13.2 TH/MM3 (4.0-11.0) Red Blood Count 3.26 MIL/MM3 (4.50-5.90) Hemoglobin 9.5 GM/DL (13.0-17.0) Hematocrit 29.6 % (39.0-51.0) Neutrophils (%) (Auto) 73.0 % (16.0-70.0) Monocytes (%) (Auto) 10.5 % (0.0-8.0) Neutrophils # (Auto) 9.6 TH/MM3 (1.8-7.7) Monocytes # (Auto) 1.4 TH/MM3 (0-0.9) Blood Urea Nitrogen 44 MG/DL (7-18) Creatinine 1.77 MG/DL (0.60-1.30) Random Glucose 72 MG/DL (74-106) Albumin 1.4 GM/DL (3.4-5.0) Calcium Level 7.9 MG/DL (8.5-10.1) Chloride Level 115 MEQ/L (98-107) Estimat Glomerular Filtration Rate 38 ML/MIN (>89) Imaging Last Impressions Chest X-Ray 03/13/17 0000 Signed Impressions: Service Date/Time: Monday, March 13, 2017 12:44 - CONCLUSION: Developing opacity in the right lung base characteristic of acute air space disease. Minimal left basilar airspace disease. Following stable chest Chuckie Mckeon MD Renal Ultrasound 03/06/17 0000 Signed Impressions: Service Date/Time: Monday, March 06, 2017 13:01 - CONCLUSION: 1. Subtle interval enlargement of posterior right perinephric hematoma now measuring 11.2 x 7.8 x 7.9 cm in comparison to 11.0 x 8.5 x 5.8 cm on 03/01/17 CT exam. 2. No evidence for obstructive uropathy. 3. Multiple stable bilateral renal cysts similar to recent CT exam, as above. 4. Redemonstration of 2.2 x 0.4 x 2.3 cm bladder calculus. 5. Diffuse bladder wall thickening with enlarged prostate and associated mass effect at the base of the bladder. This may reflect some degree of bladder outlet obstruction. Clifford Sanchez MD Abdomen/Pelvis CT 03/01/17 0000 Signed Impressions: Service Date/Time: February 14:01 - CONCLUSION: 1. Interval increase in the size of the right perirenal hematoma, now measuring 8.5 cm. 2. Other findings are stable compared to prior CT. Blaze Marshall MD Hospital Course Patient was found to be anemic, with hemoglobin 7.4, which improved to 10.2 after 2 units of PRBCs.. Gastroenterology was consulted, panendoscopy was performed and negative for signs of bleeding. Patient did have peptic duodenitis seen on biopsy, as well as tubular adenomas biopsied from Colon. He will need repeat colonoscopy as an outpatient with gastroenterology at the end of March. Patient also had known perinephric hematoma, which appeared to have expanded on CT from 6.5 cm to 8.5 cm. Patient underwent right renal angiogram with IR embolization of small tangle abnormal vessels along the right renal cortex. CR 1.4 on admission, trended up to 2.3, however down to 1.7 at discharge . Nephrology followed during admission Patient was also treated for healthcare associated pneumonia. Chest x-ray on admission with bilateral mild infiltrates, no leukocytosis. Initially patient was treated with Zosyn and vancomycin , however was switched to doxycycline which was continued until 03/18. Due to new leukocytosis of 13.8, Repeat chest x-ray was ordered on 03/20 which showed developing right lower lobe pleural effusion. Urinalysis showed 80 white blood cells, however patient with chronic catheter. Vital signs otherwise stable. Patient was discharged. Called resume facility and ordered Levaquin 750 mg every 48 hours 7 days. Patient will need repeat labs and imaging. For chronic diarrhea, C. difficile was checked and negative. Follow-up with GI as outpatient. For atrial fibrillation with RVR, Coreg was increased. Warfarin was held due to anemia, perinephric hematoma. Warfarin can be restarted when deemed appropriate as outpatient. For complete problem based summary from most recent progress note, please see below. 03/20 //Leukocytosis 13.8 worsened from yesterday. //Lobe pneumonia with effusion. -Chest x-ray with new small right lung pleural effusion, appearance of right lower lobe pneumonia. = Urinalysis with 81 blood cells, improved from previous. Urine culture pending. = Stool studies for enteric pathogens ordered = Due to worsening leukocytosis, with worsening diarrhea(worsening diarrhea could be temporary exacerbation of chronic diarrhea), have reordered C. difficile stool. = LFTs unremarkable. = Renal function stable. = Leukocytosis could be secondary to right lower lobe pneumonia versus recent perinephric hematoma. Chest x-ray on admission 03/04 with obvious change 03/13, 03/20. = Patient did receive Zosyn, vancomycin from , with doxycycline from -03/18 = This morning at 9:56 AM I canceled discharge order, ordered labs, discussed at [facility], subsequently added broad-spectrum antibiotics. Unfortunately it appears patient was discharged this afternoon around 6 PM. Efforts from [facility] N. staff to contact [facility] have been unsuccessful. =i feel it is prudent patient be treated for right lower lobe pneumonia. 03/19. Hemoglobin 8.6 from 9.5. No signs of bleeding. We'll check again tomorrow. Leukocytosis. Improving 12.5 from 13.2. Creatinine continues improving. 1.77 from 4.0. //Acute Blood loss Anemia. Possibly s/t GI bleed vs renal hemorrhage. From the last hospitalization hemoglobin is relatively stable. In January hemoglobin was 8.4 and now is 7.7. Patient does not have any gross bleeding. He does have a positive Hemoccult done in the ED. Patient is also on chronic anticoagulation with Coumadin. S/p 4 units red blood cells. Hemoglobin currently stable. GI and hematology consulted and recommendations appreciated. - Will hold Coumadin for now. Possibly resume at lower dose on discharge. Follow up with hematology. - Protonix. - follow CBC and transfuse as needed. Stable. - Rpt. Colonoscopy end of March as planned. GI signed off. //Right perinephric hematoma Noted on last admission. CT abdomen showed spontaneous hemorrhage involving the right mid pole kidney measuring 6.5 cm in size. Repeat CT showed increasing size to 8.5 cm. Appreciate urology consult. - continue to hold Coumadin. Defer to urology and hematology in regards to resuming anticoagulation. The pt is not sure he wants to resume anticoagulation. - follow CBC, if hgb decreases may consider IR embolization. Stable. Renal ultrasound was ordered and as described above, there was enlargement of perinephric hematoma but no signs of obstructive uropathy. there is diffuse bladder wall thickening with enlarged prostate and associated mass effect at the base of the bladder. 03/08 Urology reconsulted by nephrology given that renal function is not improving. Urology recommendations pending. 03/09 the patient is status post IR embolization. Continue to monitor CBC. 03/18. Hemoglobin stable 9.5. No signs of bleeding. //HCAP CXR with bilateral mild infiltrates. The patient was recently hospitalized. The patient was initially started on IV vancomycin and IV Zosyn on 03/05/17. Patient also was treated with supplemental oxygen and DuoNeb's as needed. Blood cultures obtained and negative. Patient also treated with incentive spirometry which will be continued. Posteriorly on March 07 IV vancomycin and IV Zosyn were discontinued and the patient was started on oral doxycycline. =oral doxy dcd on 03/18 //Bladder Stone/ UTI CT abdomen showed bladder stone measuring 1.61cm on last admit. UA indicative of infection. Sands catheter was placed and urology consulted. However, urine culture was concomitant with contamination. //ASUNCION on Chronic Kidney Disease stage 3 - Avoid nephrotoxins. - Strict ins and outs. - start IVFs and monitor. 03/06 Worsening creatinine from 1.4 from admission to 1.9. Nephrology consult. Will start on IV fluids as per nephrology recommendations. started on NS with sodium bicarbonate as per nephrology. Continue to monitor BUN and creatinine and BMP for resolution of acidosis. 03/07 Creatinine Trending up. Nephrology following. Will increase the rate of IV fluids to 100 ml/hr. 03/08 Urology reconsulted due to enlarging perinephric hematoma and no response after IV fluids. 03/09 creatinine now slightly improved. Continue IV fluids as per nephrology recommendations. Creatinine stable at 2.2. Continue IV fluids as per nephrology recommendations. 03/13 as per nephrology patient cleared for DC. =cr is currently stable //Hyperchloremic metabolic acidosis Likely secondary to diarrhea. C. difficile checked and negative. The patient was started on Imodium as needed as well as Lactobacillus acidophilus scheduled. Continue IV fluids, carbon dioxide trending up. Patient currently on half- normal saline with sodium bicarbonate. 12/ Resolved. Discontinue sodium bicarbonate. = Subsequent stable. //Atrial fibrillation/ V tach On chronic anticoagulation with Coumadin. INR is 1.2. The patient has been having problems with bleeding. The pt had a run of V tach vs A fib with aberrancy 03/02. - Will hold Coumadin and follow up with hematology. - telemetry. - increased Coreg to 6.25 mg BID. 03/06 Rate controlled, no reported events of V tach. //Diabetes Mellitus With neuropathy and retinopathy. 03/06 Blood sugars stable. Continue SSI and continue to monitor accuchecks. //Hypocalcemia Calcium level improved. Replaced with IV Calcium chloride. Continue to monitor calcium levels. Likely decreased secondary to decreased oral intake. = Calcium when corrected is within normal limits //Hypomagnesemia Status post replacement with IV magnesium sulfate. Continue to monitor magnesium levels. Given that patient had episode of V. tach. Magnesium should be closer to 2. 03/07 Magnesium level 1.9 Continue to monitor. = 03/18. Magnesium 1.5. Replace.*Daily replacement. //Diarrhea Patient c/o watery diarrhea which she says has had for a long time. Diarrhea is watery. C diff test oredered and negative. Will reconsult GI. Patient has been started on lactobacillus Acidophilus and loperamide as needed which I will continue but schedule loperamide administration. Stool for one parasites and enteric pathogens were ordered, however lab canceled the order is is as per laboratory policy. HIV 1 and 2 antibody negative. 03/12 Diarrhea resolved - continue Lomotil. Dc Imodium as needed. = 03/20. Patient reporting multiple episodes of diarrhea which continues. //BPH Renal us shows diffuse bladder wall thickening and enlarged prostate. Urology following. Will start patient on Flomax. Patient might need to be discharged home with sands catheter. Fu urology recommendations. //Hypernatremia Will change IV lfuids to 1/4 normal saline. Continue to monitor BMP. 03/12 Resolved, sodium continues to trend down. Discharge Planning patient discharge today. Please see above. Kadeem Bateman MD Mar 20, 2017 20:20 Addendum: Kadeem Bateman MD on 03/20/17 @ 20:34 Called [facility] and discussed the case with Taya, charge nurse. [facility] is able to do chest x-rays, provide urgent treatment if necessary. We discussed patient's right lower lobe pneumonia. Other than leukocytosis, patient is clinically stable. We will start on Levaquin by mouth 750 mg to start tonight, receive every other day for 7 days. Repeat chest x-ray on . Dr. Rubi is the medical technologist chemistry for [facility], and I will be calling him tomorrow morning to discuss this patient. Pt Condition on Discharge: Stable Discharge Disposition: Discharge to SNF Discharge Time: > 30 minutes Discharge Instructions DIET: Follow Instructions for: Heart Healthy Diet Activities you can perform: See Additionl Instruction Other Activity Instructions: as per PT instructions OOB with assistance only Follow up Referrals: Gastroenterology - 2 Weeks with [facility] PCP Follow-up - 1 Week PCP [facility] New Medications: Loperamide (Loperamide) 2 Mg Cap 2 MG PO DIRECTED PRN for DIARRHEA for 30 Days, CAP 0 Refills One capsule after each loose stool. Not to exceed 8 capsules per day. Carvedilol (Coreg) 6.25 Mg Tab 6.25 MG PO Q12HR for Blood Pressure Management, #62 TAB Magnesium Oxide (Magnesium Oxide) 400 Mg Tab 400 MG PO DAILY for heart for 30 Days, #30 TAB Continued Medications: Calcitriol (Rocaltrol) 0.25 Mcg Cap 0.5 MCG PO DAILY, #30 CAP Calcium/Vitamin D (Oyster Shell 250 mg + Vit D Tb) 250 Mg Calcium (625 Mg)-125 Unit Tablet 500 MG PO Q12HR, #60 TAB Cholecalciferol (Vitamin D3) 5,000 Unit Cap 5000 UNITS PO DAILY, #30 CAP Ferrous Sulfate (Ferosul) 325 Mg Tablet 325 MG PO DAILY, #30 TAB Hydralazine HCl (Hydralazine HCl) 25 Mg Tablet 10 MG PO TID for Blood Pressure Management, #90 TAB 0 Refills Losartan (Losartan) 25 Mg Tab 25 MG PO DAILY for Blood Pressure Management, #30 TAB 0 Refills Pantoprazole (Pantoprazole) 40 Mg Tab 40 MG PO DAILY for Manage Heartburn, #30 TAB Pravastatin (Pravastatin) 40 Mg Tab 40 MG PO DAILY, #30 TAB 0 Refills Discontinued Medications: Carvedilol (Coreg) 3.125 Mg Tab 3.125 MG PO BID, #60 TAB 3 Refills Warfarin (Warfarin) 2.5 Mg Tab 2.5 MG PO DAILY, #30 TAB 0 Refills start if repeat labs 02/02 stable and ok by PCP Warfarin (Warfarin) 5 Mg Tab 5 MG PO sun for Blood Clot Prevention, #30 TAB 0 Refills start if repeat labs 02/02 stable and ok by PCP Kadeem Bateman MD Mar 19, 2017 10:50
[2017-03-19 12:00] VITALS: BP 131/60; PULSE 61; PULSE 62; RESP 20; TEMP 97.4; O2SAT 95
[2017-03-19 12:24] LABS: AUTOMATED NEUTROPHIL # 9.4 TH/MM3 (1.8-7.7); BASOPHIL # 0.1 TH/MM3 (0-0.2); BASOPHIL % 1.1 % (0.0-2.0); EOSINOPHIL # 0.2 TH/MM3 (0-0.4); HEMATOCRIT 27.1 % (39.0-51.0); HEMO FLAGS DIFF FINAL; LYMPH % 11.8 % (9.0-44.0); LYMPHOCYTE # 1.5 TH/MM3 (1.0-4.8); MEAN CELL VOLUME 90.6 FL (80.0-100.0); MEAN CORPUSCULAR HEMOGLOBIN 28.9 PG (27.0-34.0); MEAN CORPUSCULAR HGB CONC 31.9 % (32.0-36.0); MONO % 9.9 % (0.0-8.0); NEUT % 75.2 % (16.0-70.0); PLATELET COUNT 149 TH/MM3 (150-450); RED BLOOD COUNT 2.99 MIL/MM3 (4.50-5.90); RED CELL DISTRIBUTION WIDTH 16.4 % (11.6-17.2); WHITE BLOOD COUNT 12.5 TH/MM3 (4.0-11.0)
[2017-03-19 16:00] VITALS: PULSE 55
--- NOTE | 2017-03-19 16:03 | RADRPT ---
EXAM DATE/TIME: 03/09/2017 10:19 [facility] COMPARISON: US GUIDED VASCULAR ACCESS, RIGHT, March 09, 2017, 0:00. INDICATIONS : Patient with right renal hematoma. MEDICAL HISTORY : 1.Anemia 2. HTN 3. A fib 4. DM 5. Chronic kidney disease 6. PAD 7. COPD 8. CHF 9.AAA 10.CAD 11. Gi bleed 12 Kidney stones 13. Pancreatitis SURGICAL HISTORY : 1. Colonoscopy 2. AAA repair 3. EGD 4. Cardiac cath with stents x 2 5. hernia repair 6. tonsillectomy ENCOUNTER: Initial ACUITY: 1 week PAIN SCORE: 0/10 FLUORO TIME: 16.5 minutes IMAGE SERIES: 15 ACCESS SITE: Right Femoral artery SEDATION TIME: 60 minutes CONTRAST: 1.) 35 cc Visipaque (iodixanol) MEDICATION(S): 1.) 2.5 mg midazolam (Versed) IV 2.) 125 mcg fentanyl (Sublimaze) IV 3.) 2 g cefazolin (Ancef) IV Intra-procedural antibiotics were given as prescribed above. DEVICE(S): 1.) Right renal artery Gelfoam 2.) Right renal artery 2mm x 1.5 cm embolic coil(s) xtrasoft complex 3.) Right renal artery 2mm x 1.5cm embolic coil(s) complex xtrasoft PROCEDURE : 1. Ultrasound-guided puncture of the access site. 2. Angiography of the access site prior to closure device. 3. Conscious sedation with continuous EKG and Oximetry monitoring. 4. Percutaneous closure of the access site. 5. Angiography of the right kidney 6. embolization of an upper pole branch of the right renal artery. 7. followup angiogram x2. The risks, benefits and alternatives to the procedure were explained and verbal and written consent w as obtained. The site was prepped in sterile fashion. Full sterile technique was used, including ca p, mask, sterile gloves and gown and a large sterile sheet. Hand hygiene and 2% chlorhexidine and/or betadine/alcohol prep was utilized per protocol for cutaneous antisepsis. Sterile gel and sterile p robe cover were utilized for ultrasound guidance. The skin and subcutaneous tissues were infiltrated with local anesthetic solution. With ultrasound and fluoroscopic guidance the selected artery was punctured and a vascular sheath was placed. Angiography of the common femoral artery was performed for evaluation prior to percutaneous closure device placement. A 0.035 angle Glidewire and catheter were advanced into the right renal artery. Selective angiography was performed. The selective angiography demonstrated capsular hemorrhage or rising from an upper po le branch of the right kidney. The hook catheter was exchanged for a single enteral glide catheter. A renegade hi flow microcatheter was advanced into the upper pole branch. The upper lobe branch was selectively embolized with a 2 mm x 1.5 cm soft complex coil. A total of 2 coils were placed. This was backed with approximately 0.5 c c of Gelfoam. A followup angiogram demonstrated complete occlusion of a small upper pole branch distally. The edilson ter bleed was no longer identified. Hemostasis was obtained with the prescribed medicated closure device. Conscious sedation was perform ed with the prescribed dosages and duration as above in the presence of an independent trained radiol ogy nurse to assist in the monitoring of the patient. EKG and oximetry remained stable throughout th e procedure. CONCLUSION: 1. Successful embolization of the distal tertiary capsular branch arising from the upper pole right k idney. The patient tolerated the procedure well. Brodie Boyce MD on March 19, 2017 at 15:58 Board Certified Radiologist. This report was verified electronically.
[2017-03-19 20:00] VITALS: BP 140/65; PULSE 57; RESP 18; TEMP 97.3; O2SAT 96
--- NOTE | 2017-03-19 23:14 | HHI.PR ---
Subjective Remarks Patient seen this morning around 10 AM. Says he is feeling all right. Denies any chest pain or shortness of breath. Denies nausea or vomiting. Denies abdominal pain. Objective Vital Signs Date Time Temp Pulse Resp B/P (MAP) Pulse Ox O2 Delivery O2 Flow Rate FiO2 03/19/17 20:00 97.3 57 18 140/65 (90) 96 03/19/17 16:00 55 03/19/17 13:14 Nasal Cannula 2.00 03/19/17 12:00 97.4 62 20 131/60 (83) 95 03/19/17 12:00 61 03/19/17 08:00 97.5 53 20 130/63 (85) 97 03/19/17 04:00 20 03/19/17 04:00 97.7 60 17 114/61 (78) 99 03/19/17 00:00 97.2 61 17 130/64 (86) 97 03/19/17 00:00 58 I/O 03/19/17 03/19/17 03/19/17 03/20/17 03/20/17 03/20/17 07:00 15:00 23:00 07:00 15:00 23:00 Intake Total 650 ml 100 ml 480 ml Output Total 700 ml 950 ml Balance -50 ml 100 ml -470 ml Intake Oral 650 ml 480 ml IV Total 100 ml Output Urine Total 700 ml 950 ml # Bowel Movements 2 2 Result Diagram: 03/19/17 1120 03/18/17 0811 Objective Remarks GENERAL: Patient sitting up in bed. Appears comfortable.exam againunchanged from yesterday. SKIN: Warm and dry. HEAD: Normocephalic. EYES: No scleral icterus. No injection or drainage. NECK: Supple, trachea midline. No JVD. CARDIOVASCULAR: Regular rate and rhythm without murmurs, gallops, or rubs. RESPIRATORY: Breath sounds equal bilaterally. No accessory muscle use. GASTROINTESTINAL: Abdomen soft, non-tender, nondistended. MUSCULOSKELETAL: No cyanosis, or edema. BACK: Nontender without obvious deformity. No CVA tenderness. A/P Assessment and Plan 03/19. Hemoglobin 8.6 from 9.5. No signs of bleeding. We'll check again tomorrow. Leukocytosis. Improving 12.5 from 13.2. Creatinine continues improving. 1.77 from 4.0. //Acute Blood loss Anemia. Possibly s/t GI bleed vs renal hemorrhage. From the last hospitalization hemoglobin is relatively stable. In January hemoglobin was 8.4 and now is 7.7. Patient does not have any gross bleeding. He does have a positive Hemoccult done in the ED. Patient is also on chronic anticoagulation with Coumadin. S/p 4 units red blood cells. Hemoglobin currently stable. GI and hematology consulted and recommendations appreciated. - Will hold Coumadin for now. Possibly resume at lower dose on discharge. Follow up with hematology. - Protonix. - follow CBC and transfuse as needed. Stable. - Rpt. Colonoscopy end of March as planned. GI signed off. //Right perinephric hematoma Noted on last admission. CT abdomen showed spontaneous hemorrhage involving the right mid pole kidney measuring 6.5 cm in size. Repeat CT showed increasing size to 8.5 cm. Appreciate urology consult. - continue to hold Coumadin. Defer to urology and hematology in regards to resuming anticoagulation. The pt is not sure he wants to resume anticoagulation. - follow CBC, if hgb decreases may consider IR embolization. Stable. Renal ultrasound was ordered and as described above, there was enlargement of perinephric hematoma but no signs of obstructive uropathy. there is diffuse bladder wall thickening with enlarged prostate and associated mass effect at the base of the bladder. 03/08 Urology reconsulted by nephrology given that renal function is not improving. Urology recommendations pending. 03/09 the patient is status post IR embolization. Continue to monitor CBC. 03/18. Hemoglobin stable 9.5. No signs of bleeding. //HCAP CXR with bilateral mild infiltrates. The patient was recently hospitalized. The patient was initially started on IV vancomycin and IV Zosyn on 03/05/17. Patient also was treated with supplemental oxygen and DuoNeb's as needed. Blood cultures obtained and negative. Patient also treated with incentive spirometry which will be continued. Posteriorly on March 07 IV vancomycin and IV Zosyn were discontinued and the patient was started on oral doxycycline. //Bladder Stone/ UTI CT abdomen showed bladder stone measuring 1.61cm on last admit. UA indicative of infection. Sands catheter was placed and urology consulted. However, urine culture was concomitant with contamination. //ASUNCION on Chronic Kidney Disease stage 3 - Avoid nephrotoxins. - Strict ins and outs. - start IVFs and monitor. 03/06 Worsening creatinine from 1.4 from admission to 1.9. Nephrology consult. Will start on IV fluids as per nephrology recommendations. started on NS with sodium bicarbonate as per nephrology. Continue to monitor BUN and creatinine and BMP for resolution of acidosis. 03/07 Creatinine Trending up. Nephrology following. Will increase the rate of IV fluids to 100 ml/hr. 03/08 Urology reconsulted due to enlarging perinephric hematoma and no response after IV fluids. 03/09 creatinine now slightly improved. Continue IV fluids as per nephrology recommendations. Creatinine stable at 2.2. Continue IV fluids as per nephrology recommendations. 03/13 as per nephrology patient cleared for DC. //Hyperchloremic metabolic acidosis Likely secondary to diarrhea. C. difficile checked and negative. The patient was started on Imodium as needed as well as Lactobacillus acidophilus scheduled. Continue IV fluids, carbon dioxide trending up. Patient currently on half- normal saline with sodium bicarbonate. 03/10 Resolved. Discontinue sodium bicarbonate. = 03/17. Recheck renal profile tomorrow. //Atrial fibrillation/ V tach On chronic anticoagulation with Coumadin. INR is 1.2. The patient has been having problems with bleeding. The pt had a run of V tach vs A fib with aberrancy 03/02. - Will hold Coumadin and follow up with hematology. - telemetry. - increased Coreg to 6.25 mg BID. 03/06 Rate controlled, no reported events of V tach. //Diabetes Mellitus With neuropathy and retinopathy. 03/06 Blood sugars stable. Continue SSI and continue to monitor accuchecks. //Hypocalcemia Calcium level improved. Replaced with IV Calcium chloride. Continue to monitor calcium levels. Likely decreased secondary to decreased oral intake. = Calcium when corrected is within normal limits //Hypomagnesemia Status post replacement with IV magnesium sulfate. Continue to monitor magnesium levels. Given that patient had episode of V. tach. Magnesium should be closer to 2. 03/07 Magnesium level 1.9 Continue to monitor. = 03/18. Magnesium 1.5. Replace.*Daily replacement. //Diarrhea Patient c/o watery diarrhea which she says has had for a long time. Diarrhea is watery. C diff test oredered and negative. Will reconsult GI. Patient has been started on lactobacillus Acidophilus and loperamide as needed which I will continue but schedule loperamide administration. Stool for one parasites and enteric pathogens were ordered, however lab canceled the order is is as per laboratory policy. HIV 1 and 2 antibody negative. 03/12 Diarrhea resolved - continue Lomotil. Dc Imodium as needed. //BPH Renal us shows diffuse bladder wall thickening and enlarged prostate. Urology following. Will start patient on Flomax. Patient might need to be discharged home with sands catheter. Fu urology recommendations. //Hypernatremia Will change IV lfuids to 1/4 normal saline. Continue to monitor BMP. 03/12 Resolved, sodium continues to trend down. Tobacco Use - Patient counseled on cessation. DVT prophylaxis- chemical prophylaxis contraindicated at this time secondary to active bleeding Discharge Planning Patient will need rehab upon DC. Discussed with case worker again at today. -expected discharge today. Kadeem Bateman MD Mar 19, 2017 23:14
[2017-03-20] VITALS: BP_SYST 130; BP_SYST 132; BP_DIAS 60; BP_DIAS 62; PULSE 58; PULSE 63; PULSE 66; RESP 16; RESP 18; TEMP 97.5; TEMP 98; O2SAT 92; O2SAT 97
[2017-03-20 04:00] VITALS: PULSE 60
[2017-03-20 05:09] LABS: AUTOMATED NEUTROPHIL # 10.3 TH/MM3 (1.8-7.7); BASOPHIL # 0.2 TH/MM3 (0-0.2); BASOPHIL % 1.3 % (0.0-2.0); EOSINOPHIL # 0.3 TH/MM3 (0-0.4); EOSINOPHIL % 2.1 % (0.0-4.0); HEMATOCRIT 27.4 % (39.0-51.0); HEMO FLAGS DIFF FINAL; LYMPH % 12.1 % (9.0-44.0); LYMPHOCYTE # 1.7 TH/MM3 (1.0-4.8); MEAN CELL VOLUME 89.2 FL (80.0-100.0); MEAN CORPUSCULAR HEMOGLOBIN 28.7 PG (27.0-34.0); MEAN CORPUSCULAR HGB CONC 32.1 % (32.0-36.0); MONO % 9.8 % (0.0-8.0); NEUT % 74.7 % (16.0-70.0); PLATELET COUNT 161 TH/MM3 (150-450); RED BLOOD COUNT 3.07 MIL/MM3 (4.50-5.90); RED CELL DISTRIBUTION WIDTH 15.7 % (11.6-17.2); WHITE BLOOD COUNT 13.8 TH/MM3 (4.0-11.0)
[2017-03-20 05:20] LABS: BICARBONATE 23.2 MEQ/L (21.0-32.0); MAGNESIUM 1.6 MG/DL (1.5-2.5); POTASSIUM 4.3 MEQ/L (3.5-5.1)
[2017-03-20] MEDS: INSULIN ASPART SUPPLEMENTAL SCALE SQ SCH ×3 (07:47→18:11)
[2017-03-20 08:00] VITALS: BP 154/69; PULSE 66; RESP 20; TEMP 97.9; O2SAT 96
[2017-03-20 08:04] VITALS: PULSE 64
[2017-03-20] MEDS: LOSARTAN 25 MG TAB PO SCH (09:16)
[2017-03-20] MEDS: CHOLECALCIFEROL (VIT D3) 5000 UNIT CAP PO SCH (09:16)
[2017-03-20] MEDS: LACTOBACILLUS ACIDOPHILUS TAB PO SCH ×3 (09:16→18:10)
[2017-03-20] MEDS: CALCITRIOL 0.25 MCG CAP PO SCH (09:17)
[2017-03-20] MEDS: FERROUS SULFATE 325 MG (65 MG ELEMENTAL IRON) TAB PO SCH (09:17)
[2017-03-20] MEDS: CARVEDILOL 6.25 MG TAB PO SCH (09:17)
[2017-03-20] MEDS: PRAVASTATIN SOD 40 MG TAB PO SCH (09:17)
[2017-03-20] MEDS: PANTOPRAZOLE SODIUM 40 MG VIAL IV PUSH SCH (09:17)
[2017-03-20] MEDS: MAGNESIUM OXIDE 400 MG TAB PO SCH (09:17)
[2017-03-20] MEDS: CHOLESTYRAMINE 4 GM PACKET PO SCH (09:17)
[2017-03-20] MEDS: hydrALAZINE HCL 10 MG TAB PO SCH ×2 (09:17→13:38)
[2017-03-20] MEDS: CALCIUM/VITAMIN D 250 MG/125 U TAB PO SCH (09:17)
[2017-03-20] MEDS: SODIUM CHLORIDE 0.9% FLUSH 10 ML FLUSH IV FLUSH SCH (09:18)
[2017-03-20 11:59] VITALS: PULSE 73
[2017-03-20 12:00] VITALS: BP 130/63; PULSE 63; RESP 20; TEMP 97.1; O2SAT 100
--- NOTE | 2017-03-20 12:06 | RADRPT ---
EXAM DATE/TIME: 03/20/2017 11:24 [facility] COMPARISON: CHEST SINGLE AP, March 13, 2017, 12:44. INDICATIONS : Leukocytosis. MEDICAL HISTORY : Hypertension. Hypercholesterolemia. Myocardial infarction. Abdominal aortic aneurysm. Atrial fibr illation. Hiatal hernia. Pancreatitis. Left kidney cancer. SURGICAL HISTORY : Coronary artery stent. Aorta stent. ENCOUNTER: Subsequent ACUITY: 4 - 6 days PAIN SCORE: 2/10 LOCATION: Bilateral chest FINDINGS: Aortic stent graft is again noted within the descending thoracic aorta and is stable. The heart is st able. Right basilar patchiness is noted consistent with atelectasis and/or infiltrate. Small right pl eural effusion is noted. CONCLUSION: 1. Right basilar patchiness consistent with atelectasis and/or infiltrate. 2. Small right pleural effusion. Storm Weiner MD on March 20, 2017 at 12:02 Board Certified Radiologist. This report was verified electronically.
[2017-03-20 13:05] LABS: BACTERIA, URINE OCC /hpf; BLOOD, URINE NEG (NEG); GLUCOSE,URINE NEG (NEG); HYALINE CAST, URINE 4 /lpf (RARE); KETONE, URINE NEG (NEG); MUCUS URINE FEW /lpf (OCC); NITRITE,URINE NEG (NEG); PH, URINE 5.5 (5.0-8.5); SQUAMOUS EPITHELIAL CELL URINE 1 /hpf (0-5); URINE COLOR YELLOW (YELLW/STRAW)
[2017-03-20 13:10] LABS: COMMENT (UR) CULTURE INDICATED; CULTURE IF INDICATED CULTURE INDICATED
[2017-03-20 16:22] LABS: INDIRECT BILIRUBIN 0.1 MG/DL (0.0-0.8); TOTAL BILIRUBIN ADULT 0.2 MG/DL (0.2-1.0)
[2017-03-20] MEDS ORDERED: PIPERACIL-TAZO 4.5 GM PREMIX 100 ML IV SCH (17:00)
[2017-03-20] MEDS ORDERED: CLINDAMYCIN 900 MG/NS PREMIX 50 ML IV SCH (18:00)
--- NOTE | 2017-03-20 20:20 | HHI.PR ---
Subjective Remarks patient seen this morning around 9 AM. Reports continued weakness, profuse diarrhea unable to control. Denies any rectal bleeding. Denies nausea or vomiting. Denies any cough. Objective Vital Signs Date Time Temp Pulse Resp B/P (MAP) Pulse Ox O2 Delivery O2 Flow Rate FiO2 03/20/17 08:30 Nasal Cannula 2.00 03/20/17 08:00 97.9 66 20 154/69 (97) 96 03/20/17 04:00 60 03/20/17 04:00 96 Nasal Cannula 2.00 03/20/17 00:00 98.0 58 18 130/62 (84) 97 03/20/17 00:00 97.5 66 16 132/60 (84) 92 03/20/17 00:00 63 03/20/17 00:00 96 Nasal Cannula 2.00 I/O 03/19/17 03/19/17 03/19/17 03/20/17 03/20/17 03/20/17 07:00 15:00 23:00 07:00 15:00 23:00 Intake Total 650 ml 100 ml 480 ml Output Total 700 ml 950 ml Balance -50 ml 100 ml -470 ml Intake Oral 650 ml 480 ml IV Total 100 ml Output Urine Total 700 ml 950 ml # Bowel Movements 2 2 2 Result Diagram: 03/20/1744003/20/17440 Objective Remarks GENERAL: Patient sitting up in chair. The bed has been soiled. Appears comfortable. SKIN: Warm and dry. HEAD: Normocephalic. EYES: No scleral icterus. No injection or drainage. NECK: Supple, trachea midline. No JVD. CARDIOVASCULAR: Regular rate and rhythm without murmurs, gallops, or rubs. RESPIRATORY: Breath sounds equal bilaterally. No accessory muscle use. GASTROINTESTINAL: Abdomen soft, non-tender, nondistended. MUSCULOSKELETAL: No cyanosis, or edema. BACK: Nontender without obvious deformity. No CVA tenderness. A/P Assessment and Plan 03/20 //Leukocytosis 13.8 worsened from yesterday. //Lobe pneumonia with effusion. -Chest x-ray with new small right lung pleural effusion, appearance of right lower lobe pneumonia. = Urinalysis with 81 blood cells, improved from previous. Urine culture pending. = Stool studies for enteric pathogens ordered = Due to worsening leukocytosis, with worsening diarrhea(worsening diarrhea could be temporary exacerbation of chronic diarrhea), have reordered C. difficile stool. = LFTs unremarkable. = Renal function stable. = Leukocytosis could be secondary to right lower lobe pneumonia versus recent perinephric hematoma. Chest x-ray on admission 03/04 with obvious change 03/13, 03/20. = Patient did receive Zosyn, vancomycin from , with doxycycline from -03/18 = This morning at 9:56 AM I canceled discharge order, ordered labs, discussed at [facility], subsequently added broad-spectrum antibiotics. Unfortunately it appears patient was discharged this afternoon around 6 PM. Efforts from [facility] staff to contact [employer] have been unsuccessful. =i feel it is prudent patient be treated for right lower lobe pneumonia. 03/19. Hemoglobin 8.6 from 9.5. No signs of bleeding. We'll check again tomorrow. Leukocytosis. Improving 12.5 from 13.2. Creatinine continues improving. 1.77 from 4.0. //Acute Blood loss Anemia. Possibly s/t GI bleed vs renal hemorrhage. From the last hospitalization hemoglobin is relatively stable. In January hemoglobin was 8.4 and now is 7.7. Patient does not have any gross bleeding. He does have a positive Hemoccult done in the ED. Patient is also on chronic anticoagulation with Coumadin. S/p 4 units red blood cells. Hemoglobin currently stable. GI and hematology consulted and recommendations appreciated. - Will hold Coumadin for now. Possibly resume at lower dose on discharge. Follow up with hematology. - Protonix. - follow CBC and transfuse as needed. Stable. - Rpt. Colonoscopy end of March as planned. GI signed off. //Right perinephric hematoma Noted on last admission. CT abdomen showed spontaneous hemorrhage involving the right mid pole kidney measuring 6.5 cm in size. Repeat CT showed increasing size to 8.5 cm. Appreciate urology consult. - continue to hold Coumadin. Defer to urology and hematology in regards to resuming anticoagulation. The pt is not sure he wants to resume anticoagulation. - follow CBC, if hgb decreases may consider IR embolization. Stable. Renal ultrasound was ordered and as described above, there was enlargement of perinephric hematoma but no signs of obstructive uropathy. there is diffuse bladder wall thickening with enlarged prostate and associated mass effect at the base of the bladder. 03/08 Urology reconsulted by nephrology given that renal function is not improving. Urology recommendations pending. 03/09 the patient is status post IR embolization. Continue to monitor CBC. 03/18. Hemoglobin stable 9.5. No signs of bleeding. //HCAP CXR with bilateral mild infiltrates. The patient was recently hospitalized. The patient was initially started on IV vancomycin and IV Zosyn on 03/05/17. Patient also was treated with supplemental oxygen and DuoNeb's as needed. Blood cultures obtained and negative. Patient also treated with incentive spirometry which will be continued. Posteriorly on March 07 IV vancomycin and IV Zosyn were discontinued and the patient was started on oral doxycycline. =oral doxy dcd on 03/18 //Bladder Stone/ UTI CT abdomen showed bladder stone measuring 1.61cm on last admit. UA indicative of infection. Sands catheter was placed and urology consulted. However, urine culture was concomitant with contamination. //ASUNCION on Chronic Kidney Disease stage 3 - Avoid nephrotoxins. - Strict ins and outs. - start IVFs and monitor. 03/06 Worsening creatinine from 1.4 from admission to 1.9. Nephrology consult. Will start on IV fluids as per nephrology recommendations. started on NS with sodium bicarbonate as per nephrology. Continue to monitor BUN and creatinine and BMP for resolution of acidosis. 03/07 Creatinine Trending up. Nephrology following. Will increase the rate of IV fluids to 100 ml/hr. 03/08 Urology reconsulted due to enlarging perinephric hematoma and no response after IV fluids. 03/09 creatinine now slightly improved. Continue IV fluids as per nephrology recommendations. Creatinine stable at 2.2. Continue IV fluids as per nephrology recommendations. 03/13 as per nephrology patient cleared for DC. =cr is currently stable //Hyperchloremic metabolic acidosis Likely secondary to diarrhea. C. difficile checked and negative. The patient was started on Imodium as needed as well as Lactobacillus acidophilus scheduled. Continue IV fluids, carbon dioxide trending up. Patient currently on half- normal saline with sodium bicarbonate. 12 Resolved. Discontinue sodium bicarbonate. = Subsequent stable. //Atrial fibrillation/ V tach On chronic anticoagulation with Coumadin. INR is 1.2. The patient has been having problems with bleeding. The pt had a run of V tach vs A fib with aberrancy 03/02. - Will hold Coumadin and follow up with hematology. - telemetry. - increased Coreg to 6.25 mg BID. 03/06 Rate controlled, no reported events of V tach. //Diabetes Mellitus With neuropathy and retinopathy. 03/06 Blood sugars stable. Continue SSI and continue to monitor accuchecks. //Hypocalcemia Calcium level improved. Replaced with IV Calcium chloride. Continue to monitor calcium levels. Likely decreased secondary to decreased oral intake. = Calcium when corrected is within normal limits //Hypomagnesemia Status post replacement with IV magnesium sulfate. Continue to monitor magnesium levels. Given that patient had episode of V. tach. Magnesium should be closer to 2. 03/07 Magnesium level 1.9 Continue to monitor. = 03/18. Magnesium 1.5. Replace.*Daily replacement. //Diarrhea Patient c/o watery diarrhea which she says has had for a long time. Diarrhea is watery. C diff test oredered and negative. Will reconsult GI. Patient has been started on lactobacillus Acidophilus and loperamide as needed which I will continue but schedule loperamide administration. Stool for one parasites and enteric pathogens were ordered, however lab canceled the order is is as per laboratory policy. HIV 1 and 2 antibody negative. 03/12 Diarrhea resolved - continue Lomotil. Dc Imodium as needed. = 03/20. Patient reporting multiple episodes of diarrhea which continues. //BPH Renal us shows diffuse bladder wall thickening and enlarged prostate. Urology following. Will start patient on Flomax. Patient might need to be discharged home with sands catheter. Fu urology recommendations. //Hypernatremia Will change IV lfuids to 1/4 normal saline. Continue to monitor BMP. 03/12 Resolved, sodium continues to trend down. Discharge Planning patient discharge today. Please see above. Kadeem Bateman MD Mar 20, 2017 20:20
[2017-03-21] MEDS ORDERED: LOPE2CAP PO (09:42)
== END 2017-03-20 18:30 | DRG 673 ==
LOC: NEPC 08:47 → NEDA 10:01 → N04B 10:31
PROVIDERS: ADMIT Family Medicine; ATTEND Family Medicine
PROC: 30233N1 Transfusion of Nonautologous Red Blood Cells into Peripheral Vein, Percutaneous Approach (ICD-10-PCS; 2017-02-28)
PROC: 04L93DZ Occlusion of Right Renal Artery with Intraluminal Device, Percutaneous Approach (ICD-10-PCS; principal; 2017-03-09)
PROC: B4161ZZ Fluoroscopy of Right Renal Artery using Low Osmolar Contrast (ICD-10-PCS; 2017-03-09)
DX: N28.89 Other specified disorders of kidney and ureter (principal); J18.9 Pneumonia, unspecified organism; I47.2 Ventricular tachycardia; E87.0 Hyperosmolality and hypernatremia; I13.0 Hypertensive heart and chronic kidney disease with heart failure and stage 1 through stage 4 chronic kidney disease, or unspecified chronic kidney disease; E87.2 Acidosis; J91.8 Pleural effusion in other conditions classified elsewhere; K86.1 Other chronic pancreatitis; J44.0 Chronic obstructive pulmonary disease with (acute) lower respiratory infection; I50.9 Heart failure, unspecified; K92.2 Gastrointestinal hemorrhage, unspecified; D62 Acute posthemorrhagic anemia; E11.22 Type 2 diabetes mellitus with diabetic chronic kidney disease; N17.9 Acute kidney failure, unspecified; N18.3 Chronic kidney disease, stage 3 (moderate); K59.1 Functional diarrhea; E11.40 Type 2 diabetes mellitus with diabetic neuropathy, unspecified; E87.8 Other disorders of electrolyte and fluid balance, not elsewhere classified; E11.319 Type 2 diabetes mellitus with unspecified diabetic retinopathy without macular edema; N21.0 Calculus in bladder; F17.210 Nicotine dependence, cigarettes, uncomplicated; R62.7 Adult failure to thrive; I48.2 Chronic atrial fibrillation; R53.1 Weakness; E83.42 Hypomagnesemia; E83.51 Hypocalcemia; N28.1 Cyst of kidney, acquired; N40.0 Benign prostatic hyperplasia without lower urinary tract symptoms; D50.0 Iron deficiency anemia secondary to blood loss (chronic); E11.51 Type 2 diabetes mellitus with diabetic peripheral angiopathy without gangrene; E78.5 Hyperlipidemia, unspecified; F43.21 Adjustment disorder with depressed mood; J06.9 Acute upper respiratory infection, unspecified; K29.80 Duodenitis without bleeding; I25.10 Atherosclerotic heart disease of native coronary artery without angina pectoris; K59.00 Constipation, unspecified; Y95 Nosocomial condition; Z86.711 Personal history of pulmonary embolism; Z86.010 Personal history of colon polyps; Z95.5 Presence of coronary angioplasty implant and graft; Z79.01 Long term (current) use of anticoagulants
CPT/HCPCS: 36253; 36430; 37243; 71010; 74176; 76775; 76937; 80048; 80053; 80069; 80076; 80202; 81001; 82948; 83735; 84100; 84155; 85014; 85018; 85025; 85027; 85610; 85730; 86703; 86850; 86900; 86901; 86920; 87015; 87040; 87077; 87086; 87116; 87186; 87205; 87206; 87328; 87329; 87493; 87506; 94150; 96374; 99152; 99153; C1769; C1887; C1894; C9113; J0610; J0690; J1815; J1940; J2250; J2543; J3010; J3370; J3430; J3475; J7050; P9016; Q9967

== ENCOUNTER 2017-03-31 20:55 | Emergency (ER) | payer OTHER ==
[~2017-03-31] VITALS: Ht 180.3 cm; Wt 65.0 kg
[~2017-03-31 20:55] MED LIST changes: -CARV3.125 PO; +CARV6.25 PO; -CIPR250T52 PO; +LOPE2CAP PO; +MAGN400T2 PO; -WARF-18 PO; -WARF-23 PO
[2017-03-31 20:57] VITALS: BP 146/70; PULSE 99; RESP 16; TEMP 97.1; O2SAT 96
--- NOTE | 2017-03-31 22:29 | PD ---
HPI Chief Complaint: Complaint Time Seen by Provider: 22:15 Travel History International Travel<30 days: No Contact w/Intl Traveler<30days: No Traveled to known affect area: No History of Present Illness HPI 71-year-old man, presents to the ED complaining that he tripped over his White catheter feels like he pulled apart of the way out. It wasn't draining. Recent prolonged hospital stay. Patient left reactive 2 days ago. Otherwise doing well. No associated symptoms. No fevers. No blood. PFSH Past Medical History Hx Anticoagulant Therapy: Yes AAA: Yes (REPAIRED) Arthritis: Yes Asthma: No Atrial Fibrillation: Yes Autoimmune Disease: No Blood Disorders: No Anxiety: No Depression: No Heart Rhythm Problems: Yes (A-fib) Cancer: Yes (left kidney) Cardiac Catheterization: Yes (2 CARDIAC STENTS, 2 AORTA) Cardiovascular Problems: Yes High Cholesterol: Yes Chemotherapy: No Chest Pain: No Congestive Heart Failure: Yes COPD: No Cerebrovascular Accident: No Coronary Artery Disease: Yes Diabetes: Yes Patient Takes Glucophage: No Diminished Hearing: No Endocrine: Yes Gastrointestinal Disorders: Yes (BLADDER STONES) GERD: Yes Genitourinary: Yes (deteriorated bladder) Hiatal Hernia: Yes Hypertension: Yes Immune Disorder: No Implanted Vascular Access Dvce: Yes Insomnia: No Kidney Stones: No Musculoskeletal: Yes (CHRONIC BACK PAIN) Neurologic: Yes Psychiatric: No Reproductive: No Respiratory: No Immunizations Current: Yes Migraines: No Myocardial Infarction: Yes Pancreatitis: Yes Radiation Therapy: No Renal Failure: No Seizures: No Sleep Apnea: No Thyroid Disease: No Ulcer: No Tetanus Vaccination: < 5 Years Influenza Vaccination: Yes Past Surgical History Abdominal Aneurysm Repair: Yes Abdominal Surgery: Yes (hernia x3) AICD: No Arteriovenous Shunt: No Body Medical Devices: cardiac stents Cardiac Surgery: Yes (STENTS in upper and lower aorta, stent in heart) Coronary Stent: Yes (X2) Ear Surgery: No Endocrine Surgery: Yes (tonsillectomy) Eye Surgery: No Genitourinary Surgery: Yes (mesh bilateral inguinal) Gynecologic Surgery: No Insulin Pump: No Joint Replacement: No Neurologic Surgery: No Oral Surgery: Yes (CYST REMOVED FROM THROAT) Pacemaker: No Thoracic Surgery: Yes Tonsillectomy: Yes Other Surgery: Yes Social History Alcohol Use: No Tobacco Use: Yes Substance Use: No Allergies-Medications (Allergen,Severity, Reaction): Coded Allergies: No Known Allergies (Verified Allergy, Unknown, 03/31/17) Reported Meds & Prescriptions Reported Meds & Active Scripts Active Loperamide (Loperamide HCl) 2 Mg Cap 2 Mg PO DIRECTED PRN 30 Days One capsule after each loose stool. Not to exceed 8 capsules per day. Magnesium Oxide 400 Mg Tab 400 Mg PO DAILY 30 Days Coreg (Carvedilol) 6.25 Mg Tab 6.25 Mg PO Q12HR Pantoprazole (Pantoprazole Sodium) 40 Mg Tab 40 Mg PO DAILY Ferosul (Ferrous Sulfate) 325 Mg Tablet 325 Mg PO DAILY Vitamin D3 (Cholecalciferol) 5,000 Unit Cap 5,000 Units PO DAILY Oyster Shell 250 mg + Vit D Tb (Calcium/Vitamin D) 250 Mg Calcium (625 Mg)-125 Unit Tablet 500 Mg PO Q12HR Rocaltrol (Calcitriol) 0.25 Mcg Cap 0.5 Mcg PO DAILY Reported Losartan (Losartan Potassium) 25 Mg Tab 25 Mg PO DAILY Hydralazine HCl 25 Mg Tablet 10 Mg PO TID Pravastatin 40 Mg Tab 40 Mg PO DAILY Review of Systems Except as stated in HPI: all other systems reviewed are Neg Physical Exam Narrative GENERAL: Frail appearing 71-year-old man, no acute distress. SKIN: Focused skin assessment warm/dry. HEAD: Atraumatic. Normocephalic. EYES: Pupils equal and round. No scleral icterus. No injection or drainage. ENT: No nasal bleeding or discharge. Mucous membranes pink and moist. NECK: Trachea midline. No JVD. CARDIOVASCULAR: Regular rate and rhythm. No murmur appreciated. RESPIRATORY: No accessory muscle use. Clear to auscultation. Breath sounds equal bilaterally. GASTROINTESTINAL: Abdomen soft, non-tender, nondistended. Hepatic and splenic margins not palpable. : White catheter, significantly out from the penis, The DN by the patient. No blood at the meatus. No other evidence of injury. MUSCULOSKELETAL: No obvious deformities. Data Data Last Documented VS Vital Signs Date Time Temp Pulse Resp B/P (MAP) Pulse Ox O2 Delivery O2 Flow Rate FiO2 03/31/17 20:57 97.1 99 16 146/70 (95) 96 Room Air Orders Orders Urinary Catheter Insert/Apply (03/31/17 22:20) MDM Medical Decision Making Medical Screen Exam Complete: Yes Emergency Medical Condition: Yes Differential Diagnosis White catheter malfunction, obstruction, other Narrative Course Medical decision making 71-year-old tripped and fell and is fully employed partly out. Requesting White be replaced. Otherwise doing well generally. Has appointment for outpatient follow-up. Diagnosis Primary Impression: Malfunction of White catheter Additional Instructions: Continue White care as directed. Disposition: 01 DISCHARGE HOME Condition: Stable Krishna Car MD Mar 31, 2017 22:29
== END 2017-03-31 23:05 | disposition home or self-care (01) ==
LOC: NEPE 20:55
DX: T83.091A Other mechanical complication of indwelling urethral catheter, initial encounter (principal); I48.91 Unspecified atrial fibrillation; I50.9 Heart failure, unspecified; I25.10 Atherosclerotic heart disease of native coronary artery without angina pectoris; E11.9 Type 2 diabetes mellitus without complications; I10 Essential (primary) hypertension; K21.9 Gastro-esophageal reflux disease without esophagitis; E78.00 Pure hypercholesterolemia, unspecified; M19.90 Unspecified osteoarthritis, unspecified site; I25.2 Old myocardial infarction; Z72.0 Tobacco use; Z79.01 Long term (current) use of anticoagulants; Z87.19 Personal history of other diseases of the digestive system; Z87.448 Personal history of other diseases of urinary system; Z85.528 Personal history of other malignant neoplasm of kidney; Z87.39 Personal history of other diseases of the musculoskeletal system and connective tissue; Z86.69 Personal history of other diseases of the nervous system and sense organs
CPT/HCPCS: 51702

== ENCOUNTER 2017-04-10 08:33 | Inpatient (IN) | payer OTHER, MEDICARE ==
[~2017-04-10] VITALS: Ht 175.3 cm; Wt 89.0 kg
[2017-04-10] VITALS (25 sets, daily range): BP systolic 74–140; BP diastolic 29–68; PULSE 57–108; RESP 16–19; TEMP 90–101; O2SAT 84–100
--- NOTE | 2017-04-10 08:57 | PD ---
HPI Chief Complaint: Altered Mental Status Time Seen by Provider: 08:47 Travel History International Travel<30 days: No Contact w/Intl Traveler<30days: No Traveled to known affect area: No History of Present Illness HPI 71yo M with PMH of afib on coumadin, AAA, anxiety, CAD, CHF, COPD, CKD, DM, anemia presents to the ED for altered mental status. As per EVAC, he initially responded to the call for SOB but upon arrival, pt was found to be hypotensive. Family complained of altered mental status and is on their way. Pt is AAOx2 and states that his right side hurts. He was admitted 02/28-03/20/17 for GI bleed and had panendoscopy that showed no active bleeding but has peptic duodenitis. Pt also had perinephric hematoma s/p IR embolization and had HCAP. Pt was discharge from rehab about 1 week ago. He does complain of black stool when asked. Denies any current chest pain, sob. PFSH Past Medical History Hx Anticoagulant Therapy: Yes AAA: Yes (REPAIRED) Arthritis: Yes Asthma: No Atrial Fibrillation: Yes Autoimmune Disease: No Blood Disorders: No Anxiety: No Depression: No Heart Rhythm Problems: Yes (A-fib) Cancer: Yes (left kidney) Cardiac Catheterization: Yes (2 CARDIAC STENTS, 2 AORTA) Cardiovascular Problems: Yes High Cholesterol: Yes Chemotherapy: No Chest Pain: No Congestive Heart Failure: Yes COPD: No Cerebrovascular Accident: No Coronary Artery Disease: Yes Diabetes: Yes Diminished Hearing: No Endocrine: Yes Gastrointestinal Disorders: Yes (BLADDER STONES) GERD: Yes Genitourinary: Yes (deteriorated bladder) Hiatal Hernia: Yes Hypertension: Yes Immune Disorder: No Implanted Vascular Access Dvce: Yes Insomnia: No Kidney Stones: No Musculoskeletal: Yes (CHRONIC BACK PAIN) Neurologic: Yes Psychiatric: No Reproductive: No Respiratory: No Immunizations Current: Yes Migraines: No Myocardial Infarction: Yes Pancreatitis: Yes Radiation Therapy: No Renal Failure: No Seizures: No Sleep Apnea: No Thyroid Disease: No Ulcer: No Past Surgical History Abdominal Aneurysm Repair: Yes Abdominal Surgery: Yes (hernia x3) AICD: No Arteriovenous Shunt: No Body Medical Devices: cardiac stents Cardiac Surgery: Yes (STENTS in upper and lower aorta, stent in heart) Coronary Stent: Yes (X2) Ear Surgery: No Endocrine Surgery: Yes (tonsillectomy) Eye Surgery: No Genitourinary Surgery: Yes (mesh bilateral inguinal) Gynecologic Surgery: No Insulin Pump: No Joint Replacement: No Neurologic Surgery: No Oral Surgery: Yes (CYST REMOVED FROM THROAT) Pacemaker: No Thoracic Surgery: Yes Tonsillectomy: Yes Other Surgery: Yes Social History Alcohol Use: No Tobacco Use: Yes Substance Use: No Allergies-Medications (Allergen,Severity, Reaction): Coded Allergies: No Known Allergies (Verified Allergy, Unknown, 03/31/17) Reported Meds & Prescriptions Reported Meds & Active Scripts Active Loperamide (Loperamide HCl) 2 Mg Cap 2 Mg PO DIRECTED PRN 30 Days One capsule after each loose stool. Not to exceed 8 capsules per day. Magnesium Oxide 400 Mg Tab 400 Mg PO DAILY 30 Days Coreg (Carvedilol) 6.25 Mg Tab 6.25 Mg PO Q12HR Pantoprazole (Pantoprazole Sodium) 40 Mg Tab 40 Mg PO DAILY Ferosul (Ferrous Sulfate) 325 Mg Tablet 325 Mg PO DAILY Vitamin D3 (Cholecalciferol) 5,000 Unit Cap 5,000 Units PO DAILY Oyster Shell 250 mg + Vit D Tb (Calcium/Vitamin D) 250 Mg Calcium (625 Mg)-125 Unit Tablet 500 Mg PO Q12HR Rocaltrol (Calcitriol) 0.25 Mcg Cap 0.5 Mcg PO DAILY Reported Losartan (Losartan Potassium) 25 Mg Tab 25 Mg PO DAILY Hydralazine HCl 25 Mg Tablet 10 Mg PO TID Pravastatin 40 Mg Tab 40 Mg PO DAILY Review of Systems Except as stated in HPI: all other systems reviewed are Neg Physical Exam Narrative GENERAL: 71yo M in moderate distress. SKIN: Focused skin assessment warm/dry. Pale. HEAD: Atraumatic. Normocephalic. EYES: Pupils equal and round. No scleral icterus. No injection or drainage. ENT: No nasal bleeding or discharge. NECK: Trachea midline. No JVD. CARDIOVASCULAR: Bradycardic in the 40s to 50s. No murmur appreciated. RESPIRATORY: No accessory muscle use. Clear to auscultation. Breath sounds equal bilaterally. GASTROINTESTINAL: Abdomen soft, non-tender, nondistended. +TTP right flank. MUSCULOSKELETAL: No obvious deformities. No clubbing. No cyanosis. No edema. NEUROLOGICAL: AAOx2. Unable to elevated bilateral lower extremities but I was told that he has not been able to walk since rehab. Muscle strength 3/5 in bilateral lower extremity. Muscle strength 5/5 in bilateral upper extremities. Sensation intact. . Data Data Last Documented VS Vital Signs Date Time Temp Pulse Resp B/P (MAP) Pulse Ox O2 Delivery O2 Flow Rate FiO2 04/10/17 10:45 58 17 86/51 (63) 95 Nasal Cannula 2.00 04/10/17 10:[address] Brain W/O Iv Contrast(Rout) (04/10/17 ) Complete Blood Count With Diff (04/10/17 08:48) Comprehensive Metabolic Panel (04/10/17 08:48) Prothrombin Time / Inr (Pt) (04/10/17 08:48) Act Partial Throm Time (Ptt) (04/10/17 08:48) Type And Screen (04/10/17 08:48) Troponin I (04/10/17 08:48) Chest, Single Ap (04/10/17 ) Urinalysis - C+S If Indicated (04/10/17 08:48) Ct Abd/Pel W/O Iv Contrast (04/10/17 ) Sodium Chlor 0.9% 1000 Ml Inj (Ns 1000 M (04/10/17 09:00) Blood Culture (04/10/17 09:42) Lactic Acid Sepsis Protocol (04/10/17 09:42) Vancomycin Inj (Vancomycin Inj) (04/10/17 09:45) Piperacil-Tazo 2.25 Gm Premix (Zosyn 2.2 (04/10/17 09:45) Sodium Chlor 0.9% 1000 Ml Inj (Ns 1000 M (04/10/17 11:15) Admit Order (Ed Use Only) (04/10/17 11:23) Insert Temp Sensing White Cath (04/10/17 11:23) Labs Laboratory Tests Test 04/10/17 09:10 04/10/17 10:00 Blood Urea Nitrogen 52 MG/DL Creatinine 2.94 MG/DL Random Glucose 62 MG/DL Total Protein 5.3 GM/DL Albumin 1.5 GM/DL Calcium Level 6.7 MG/DL Alkaline Phosphatase 115 U/L Aspartate Amino Transf (AST/SGOT) 28 U/L Alanine Aminotransferase (ALT/SGPT) 15 U/L Total Bilirubin 0.2 MG/DL Sodium Level 142 MEQ/L Potassium Level 3.9 MEQ/L Chloride Level 120 MEQ/L Carbon Dioxide Level 7.8 MEQ/L Anion Gap 14 MEQ/L Estimat Glomerular Filtration Rate 21 ML/MIN Protein Corrected Calcium 7.6 MG/DL Troponin I 0.03 NG/ML White Blood Count 4.3 TH/MM3 Red Blood Count 3.04 MIL/MM3 Hemoglobin 8.9 GM/DL Hematocrit 28.7 % Mean Corpuscular Volume 94.5 FL Mean Corpuscular Hemoglobin 29.3 PG Mean Corpuscular Hemoglobin Concent 31.0 % Red Cell Distribution Width 20.0 % Platelet Count 103 TH/MM3 Mean Platelet Volume 10.7 FL CBC Comment AUTO DIFF Differential Total Cells Counted 100 Neutrophils % (Manual) 63 % Band Neutrophils % 12 % Lymphocytes % 8 % Monocytes % 9 % Neutrophils # (Manual) 3.6 TH/MM3 Metamyelocytes 6 % Myelocytes 2 % Nucleated Red Blood Cells 1 /100 WBC Differential Comment FINAL DIFF MANUAL Platelet Estimate LOW Platelet Morphology Comment ENLARGED Caroline Cells 1+ Crenated Cell 1+ Prothrombin Time 15.7 SEC Prothromb Time International Ratio 1.6 RATIO Activated Partial Thromboplast Time 36.9 SEC Lactic Acid Level 0.9 mmol/L B-Type Natriuretic Peptide 269 PG/ML MDM Medical Decision Making Medical Screen Exam Complete: Yes Emergency Medical Condition: Yes Interpretation(s) EKG: Sinus bradycardia at 55bpm. 1st AV block. Q waves V1-V3, III. Differential Diagnosis GI bleed vs. ICH vs. perinephric hematoma vs. UTI vs. pneumonia Narrative Course 71yo M with multiple comorbidities was brought here for altered mental status. Son said he has not been acting like himself since yesterday. Pt is hypothermic and hypotensive. Pt does respond to NS IVF and 2 liters of NS IVF ordered. Pt has recent GI bleed so hemaprompt was done and was positive but there was not much stool. Labs reviewed, no leukocytosis. H/H 8.9/28.7, pt given protonix. GI consult placed. 12% bandemia. Pt covered with vancomycin and zosyn. CT a/p showed right lung base consolidation. Previous right perinephric hemorrhage not significantly change. Fluid collection in psoas muscle has increase in size slightly. CT brain negative. UA showed WBC 136. Pt has multiple sources of infection including pneumonia and urine and could be source of altered mental status since CT brain negative. Discussed with Dr. Manrique and Dr. Arroyo and accepted to Dr. Arroyo's service. Critical Care Narrative Aggregate critical care time was 50 minutes. Time to perform other separately billable procedures was not included in the critical care time. My time did not include minutes spent treating any other patients simultaneously or on activities that did not directly contribute to the patient's treatment. The services I provided to this patient were to treat and/or prevent clinically significant deterioration that could result in: cardiovascular collapse or . I provided critical care services requiring my management, as noted below: Chart data review, documentation time, medication orders and management, vital sign assessments/reviewing monitor data, ordering and reviewing lab tests, ordering and interpreting/reviewing x-rays and diagnostic studies, care of the patient and discussion of the patient with the admitting physicians. Sepsis Criteria SIRS Criteria (2 or more): Temp > 100.9 or < 96.8, WBC > 36691, < 4000 or > 10 % bands Sepsis Criteria (SIRS+source): Infect source susp/known Severe Sepsis (+one): Hypotension Diagnosis Primary Impression: Sepsis Qualified Codes: A41.9 - Sepsis, unspecified organism Admitting Information Admitting Physician Requests: Admit Deja Campos DO Apr 10, 2017 08:57
[2017-04-10] MEDS ORDERED: SODIUM CHLOR 0.9% 1000 ML INJ 1,000 ML IV ONE ×2 (09:00→11:15)
--- NOTE | 2017-04-10 09:27 | RADRPT ---
EXAM DATE/TIME: 04/10/2017 09:02 [facility] COMPARISON: CHEST SINGLE AP, March 20, 2017, 11:24. INDICATIONS : Short of breath. MEDICAL HISTORY : Hypertension. Hypercholesterolemia. Myocardial infarction. Abdominal aortic aneurysm. Atrial fibr illation. Hiatal hernia. Pancreatitis. Left kidney cancer. SURGICAL HISTORY : Coronary artery stent. Aorta stent. ENCOUNTER: Subsequent ACUITY: 2 days PAIN SCORE: 0/10 LOCATION: Bilateral chest FINDINGS: Diffuse infiltrates are noted within the right lung consistent with probable pneumonia. Stent graft i s noted within the descending thoracic aorta. The heart is mildly prominent. The left lung is clear. CONCLUSION: 1. Diffuse infiltrates involving the right lung consistent with probable pneumonia. 2. Cardiomegaly. Storm Weiner MD on April 10, 2017 at 9:23 Board Certified Radiologist. This report was verified electronically.
[2017-04-10] MEDS ORDERED: VANCOMYCIN INJ 1,050 MG in SODIUM CHLOR 0.9% 250 ML INJ 250 ML IV ONE (09:45)
[2017-04-10] MEDS ORDERED: PIPERACIL-TAZO 2.25 GM PREMIX 50 ML IV ONE (09:45)
[2017-04-10 10:06] LABS: ALBUMIN 1.5 GM/DL (3.4-5.0); BICARBONATE 7.8 MEQ/L (21.0-32.0); CALCIUM 6.7 MG/DL (8.5-10.1); CALCIUM-PROTEIN CORRECTED 7.6 MG/DL (8.5-10.1); CREATININE 2.94 MG/DL (0.60-1.30); TOTAL BILIRUBIN ADULT 0.2 MG/DL (0.2-1.0); TOTAL PROTEIN 5.3 GM/DL (6.4-8.2); TROPONIN I 0.03 NG/ML (0.02-0.05)
--- NOTE | 2017-04-10 10:16 | RADRPT ---
EXAM DATE/TIME: 04/10/2017 09:20 [facility] COMPARISON: CT ABDOMEN & PELVIS W/O CONTRAST, November 19, 2016, 22:45. CT ABDOMEN & PELVIS W/O CONTRAST, January 22, 2017, 9:53. ANGIOGRAM,RENAL,RT W/AORTAGRAM, March 09, 2017, 11:52. CT ABDOMEN & PELVIS W/O C ONTRAST, March 01, 2017, 14:01. INDICATIONS : Right flank pain, nausea, vomiting, diarrhea. ORAL CONTRAST: No oral contrast ingested. RADIATION DOSE: 7.53 CTDIvol (mGy) MEDICAL HISTORY : Pancreatitis. Hypertension. Congestive heart failure.diabetes SURGICAL HISTORY : Tonsillectomy. Abdominal aortic aneurysm repair.hernia repair ENCOUNTER: Initial ACUITY: 4 - 6 days PAIN SCALE: 5/10 LOCATION: Right flank TECHNIQUE: Volumetric scanning of the abdomen and pelvis was performed. Using automated exposure control and ad justment of the mA and/or kV according to patient size, radiation dose was kept as low as reasonably achievable to obtain optimal diagnostic quality images. DICOM format image data is available electro nically for review and comparison. FINDINGS: CT Abdomen: The liver, spleen, kidneys, adrenals are unremarkable. There is no evidence for any appre ciable pathological adenopathy, free fluid, or bowel obstruction. There are old healed rib fractures in the right chest. There is dense air space consolidation right lower lobe characteristic of pneumo kimberly with slight left lung base atelectasis and/or infiltrate. Aortic stent is identified and the panc reas is atrophic and diffusely calcified from prior episodes of chronic pancreatitis. There are numer ous cysts in both kidneys and the previously seen perinephric hemorrhage measures almost 8.5 cm in si ze on the right not significantly changed since 02/26/2017. There are couple bubbles of gas within th is cyst or adjacent to it most likely from recent embolization and a coil is identified in the right kidney. There is a spontaneously dense nodule in the left kidney measures 2 cm probably a complicated cyst. Within the left psoas muscle there is a well-defined almost 4 x 2 cm low attenuating mass basi silvia fluid collection. There is a lymph node in the retroperitoneum on the left side the largest patti sures 2.5 cm in size not significantly changed since 11/2016. The area within the psoas muscle measure d 2.3 cm on the study from 03/01/2017. CT pelvis: There is no evidence for mass, abscess formation, or any significant adenopathy within the pelvis. The prostate gland is inhomogeneous and measures 3.8 x 4.9 cm in AP and transverse diameters and nonspecific. There is an approximate 1.8 cm stone in the bladder posteriorly. CONCLUSION: 1. The right lung base consolidation not present previously characteristic of pneumonia possibility o f aspiration should be entertained in the appropriate clinical setting. 2. Bladder stone. 3. The previously seen right perinephric well-defined hemorrhage has not significantly changed and th e patient has undergone embolization since that time. 4. The fluid collection which is well defined within the psoas muscle has increased in size slightly may represent retroperitoneal hemorrhages evolving and could be followed. 5. Retroperitoneal lymph nodes are similar not changed since 11/2016. Eduard Pillai MD on April 10, 2017 at 9:55 Board Certified Radiologist. This report was verified electronically.
--- NOTE | 2017-04-10 10:17 | RADRPT ---
EXAM DATE/TIME: 04/10/2017 09:20 [facility] COMPARISON: No previous studies available for comparison. INDICATIONS : Altered mental status RADIATION DOSE: 64.10 CTDIvol (mGy) MEDICAL HISTORY : Pancreatitis. Hypertension. Congestive heart failure.diabetes SURGICAL HISTORY : Tonsillectomy. Abdominal aortic aneurysm repair.hernia repair ENCOUNTER: Initial ACUITY: 4 - 6 days PAIN SCALE: 7/10 LOCATION: cranial TECHNIQUE: Multiple contiguous axial images were obtained of the head. Using automated exposure control and adj ustment of the mA and/or kV according to patient size, radiation dose was kept as low as reasonably a chievable to obtain optimal diagnostic quality images. DICOM format image data is available electro nically for review and comparison. FINDINGS: There is no evidence for intracranial hemorrhage, mass effect, mass lesions, edema, or extra-axial fl uid collections. The visualized bony structures appear intact. The ventricles are normal size for t he patient's age. There are no signs of acute infarction for technique. CONCLUSION: Unremarkable study. Eduard Pillai MD on April 10, 2017 at 10:14 Board Certified Radiologist. This report was verified electronically.
[2017-04-10 10:23] LABS: HEMATOCRIT 28.7 % (39.0-51.0); HEMOGLOBIN 8.9 GM/DL (13.0-17.0); MEAN CELL VOLUME 94.5 FL (80.0-100.0); MEAN CORPUSCULAR HEMOGLOBIN 29.3 PG (27.0-34.0); MEAN PLATELET VOLUME 10.7 FL (7.0-11.0); PLATELET COUNT 103 TH/MM3 (150-450); RED BLOOD COUNT 3.04 MIL/MM3 (4.50-5.90); WHITE BLOOD COUNT 4.3 TH/MM3 (4.0-11.0)
[2017-04-10 10:33] LABS: INTERNATIONAL NORMALIZED RATIO 1.6 RATIO; PROTHROMBIN TIME - PATIENT 15.7 SEC (9.8-11.6)
[2017-04-10 11:04] LABS: BANDS 12 % (0-6); CORRECTED NUCLEATED RBC 1 /100 WBC (0-0); LYMPHOCYTES 8 % (9-44); METAMYELOCYTES 6 % (0-1); MONOCYTES 9 % (0-8); MYELOCYTES 2 % (0-0); NEUTROPHIL # MANUAL DIFF 3.6 TH/MM3 (1.8-7.7); NUCLEATED RED BLOOD CELL 1 (0-0); POLYS (SEG NEUTROPHILS) 63 % (16-70)
[2017-04-10 11:05] LABS: BURR CELLS 1+ (NORMAL)
[2017-04-10 11:49] LABS: BACTERIA, URINE MANY /hpf; BILIRUBIN, URINE NEG (NEG); BLOOD, URINE MOD (NEG); GLUCOSE,URINE NEG (NEG); KETONE, URINE TRACE mg/dL (NEG); MUCUS URINE FEW /lpf (OCC); NITRITE,URINE POS (NEG); PH, URINE 5.5 (5.0-8.5); SQUAMOUS EPITHELIAL CELL URINE <1 /hpf (0-5); URINE COLOR YELLOW (YELLW/STRAW); URINE LEUKOCYTE ESTERASE LARGE (NEG); WHITE BLOOD CELL CLUMPS RARE
[2017-04-10] MEDS ORDERED: PANTOPRAZOLE INJ 80 MG in SODIUM CHLORIDE 0.9% INJ 35 ML IV ONE (11:52)
[2017-04-10] MEDS ORDERED: PIPERACIL-TAZO 4.5 GM PREMIX 100 ML IV SCH (12:00)
[2017-04-10] MEDS ORDERED: CHLORHEXIDINE GLUCONATE 2 % 1 PACK (2 CLOTHS) TOP PRN (12:00)
[2017-04-10] MEDS ORDERED: MISCELLANEOUS NURSING INFORMATION XX SCH (12:00)
[2017-04-10] MEDS ORDERED: ONDANSETRON HCL 4 MG/2 ML VIAL IV PUSH PRN (12:00)
[2017-04-10] MEDS ORDERED: ACETAMINOPHEN 325 MG TAB PO PRN (12:00)
[2017-04-10] MEDS ORDERED: BISACODYL 10 MG SUPP RECTAL PRN (12:00)
[2017-04-10] MEDS ORDERED: SENNOSIDES 8.6 MG TAB PO PRN (12:00)
[2017-04-10] MEDS ORDERED: LACTULOSE SYRUP 20 GM/30 ML CUP PO PRN (12:00)
[2017-04-10] MEDS ORDERED: MAGNESIUM HYDROXIDE SUSP 30 ML CUP PO PRN (12:00)
[2017-04-10] MEDS: PANTOPRAZOLE INJ 80 MG in SODIUM CHLORIDE 0.9% INJ 100 ML IV SCH ×2 (12:13→21:35)
[2017-04-10] MEDS ORDERED: DEXTROSE 50% IN WATER 50 ML VIAL(D50) IV PUSH PRN (12:15)
[2017-04-10] MEDS ORDERED: GLUCAGON 1 MG/ML VIAL OTHER PRN (12:15)
[2017-04-10] MEDS ORDERED: RESP: ALBUTEROL 2.5 MG/IPRATROPIUM 0.5 MG NEB (PRN) NEB (12:45)
[2017-04-10] MEDS: AZITHROMYCIN INJ 500 MG in SODIUM CHLOR 0.9% 250 ML INJ 250 ML IV SCH (13:00)
[2017-04-10] MEDS ORDERED: SODIUM CHLOR 0.9% 1000 ML INJ 1,000 ML IV SCH (13:00)
[2017-04-10] MEDS ORDERED: WATE IV SCH ×2 (13:30)
[2017-04-10] MEDS ORDERED: SODIUM BICARBONATE IV SCH ×2 (13:30)
[2017-04-10] MEDS ORDERED: CALCIUM GLUCONATE INJ 2 GM in DEXTROSE 5% IN WATER 100ML INJ 100 ML IV ONE ×2 (13:30)
[2017-04-10] MEDS ORDERED: DEXTROSE 5% IV SCH ×2 (13:30)
[2017-04-10] MEDS ORDERED: SODIUM BICARBONATE 8.4% INJ 50 MEQ/50 ML SYR ONE ×3 (13:53→15:24)
--- NOTE | 2017-04-10 13:54 | HHI.HP ---
[facility] Service Critical Care Medicine Primary Care Physician [facility] Admission Diagnosis Sepsis, GI bleed Diagnosis: (1) Nutrition, metabolism, and development symptoms Diagnosis: Secondary (2) Hypocalcemia Diagnosis: Secondary (3) T2DM (type 2 diabetes mellitus) Diagnosis: Secondary (4) Hyperlipidemia Diagnosis: Secondary (5) Elevated INR Diagnosis: Principal (6) Tobacco abuse Diagnosis: Secondary (7) Acute blood loss anemia Diagnosis: Principal (8) CKD (chronic kidney disease) stage 3, GFR 30-59 ml/min Diagnosis: Principal (9) ASUNCION (acute kidney injury) Diagnosis: Principal (10) Sepsis Diagnosis: Principal Travel History International Travel<30 Days: No Contact w/Intl Traveler <30 Da: No Traveled to Known Affected Are: No History of Present Illness This is a 71-year-old male that presented to the ED for altered mental status. The patient's past medical history is significant for A. fib and the patient is on on chronic anticoagulation therapy with coumadin. The patient's past medical history also includes AAA, anxiety, CAD, CHF, COPD, CKD, DM, anemia presents to the ED . Per EMS report, the patient initially responded to the call for SOB but upon arrival, pt was found to be hypotensive. The family reported altered mental status, upon presentation to the ED the patient is AAOx2 and states that his right side hurts. The patient has not eaten or taken any meds for over 48 hours and then the family reportedly gave all his meds last night at 2100 .He was admitted 02/28-03/20/17 for GI bleed and had panendoscopy that showed no active bleeding but has peptic duodenitis, and underwent IR embolization for perinephric hemorrhage at that time. Pt also had perinephric hematoma s/p IR embolization and had HCAP. Pt was discharge from rehab about 1 week ago inability to ambulate. He does complain of black stool when asked. Laboratory and imaging studies were performed in the ED which showed 12% bandemia, patient previously hospitalized at recent discharge 2016 with right lower lobe pneumonia, and positive Hemoccult 02/2017, as well as this admission. Imaging studies revealed increase in a fluid collection which may have be strategic partnership representative of retroperitoneal hemorrhage. The patient's previous hospitalization revealed a spine obtained hemorrhage of the right mid pole kidney 6.5 cm the head increased to 8.[address] of the abdomen and pelvis today reveal no change in size of 8.5 cm in the right midpole of the kidney however there is a fluid collection well-defined in the psoas muscle area. Patient reportedly was hypotensive and received in the ED 2 L of normal saline, as well as Zosyn and vancomycin. Upon entering the patient's room in the ED the patient was noted to have blood pressures mid 90s/50s with a heart rate of 61 O2 saturation on 2 L was approximately 95%. The patient was noted to be lethargic, but easily arousable. Flow was noted to be 61 and the patient is receiving D50 one amp, the patient was noted to have significantly elevated creatinine with the BUN of 52 and currently receiving bolus of IV fluids. History PFSH Past Medical History Hx Anticoagulant Therapy: Yes AAA: Yes (REPAIRED) Arthritis: Yes Asthma: No Atrial Fibrillation: Yes Autoimmune Disease: No Blood Disorders: No Anxiety: No Depression: No Heart Rhythm Problems: Yes (A-fib) Cancer: Yes (left kidney) Cardiac Catheterization: Yes (2 CARDIAC STENTS, 2 AORTA) Cardiovascular Problems: Yes High Cholesterol: Yes Chemotherapy: No Chest Pain: No Congestive Heart Failure: Yes COPD: No Cerebrovascular Accident: No Coronary Artery Disease: Yes Diabetes: Yes Diminished Hearing: No Endocrine: Yes Gastrointestinal Disorders: Yes (BLADDER STONES) GERD: Yes Genitourinary: Yes (deteriorated bladder) Hiatal Hernia: Yes Hypertension: Yes Immune Disorder: No Implanted Vascular Access Dvce: Yes Insomnia: No Kidney Stones: No Musculoskeletal: Yes (CHRONIC BACK PAIN) Neurologic: Yes Psychiatric: No Reproductive: No Respiratory: No Immunizations Current: Yes Migraines: No Myocardial Infarction: Yes Pancreatitis: Yes Radiation Therapy: No Renal Failure: No Seizures: No Sleep Apnea: No Thyroid Disease: No Ulcer: No Past Surgical History Abdominal Aneurysm Repair: Yes Abdominal Surgery: Yes (hernia x3) AICD: No Arteriovenous Shunt: No Body Medical Devices: cardiac stents Cardiac Surgery: Yes (STENTS in upper and lower aorta, stent in heart) Coronary Stent: Yes (X2) Ear Surgery: No Endocrine Surgery: Yes (tonsillectomy) Eye Surgery: No Genitourinary Surgery: Yes (mesh bilateral inguinal) Gynecologic Surgery: No Insulin Pump: No Joint Replacement: No Neurologic Surgery: No Oral Surgery: Yes (CYST REMOVED FROM THROAT) Pacemaker: No Thoracic Surgery: Yes Tonsillectomy: Yes Other Surgery: Yes Social History Alcohol Use: No Tobacco Use: Yes Substance Use: No Allergies-Medications Allergies-Medications (Allergen,Severity, Reaction): Coded Allergies: No Known Allergies (Verified Allergy, Unknown, 03/31/17) Reported Meds & Prescriptions Reported Meds & Active Scripts Active Loperamide (Loperamide HCl) 2 Mg Cap 2 Mg PO DIRECTED PRN 30 Days One capsule after each loose stool. Not to exceed 8 capsules per day. Magnesium Oxide 400 Mg Tab 400 Mg PO DAILY 30 Days Coreg (Carvedilol) 6.25 Mg Tab 6.25 Mg PO Q12HR Pantoprazole (Pantoprazole Sodium) 40 Mg Tab 40 Mg PO DAILY Ferosul (Ferrous Sulfate) 325 Mg Tablet 325 Mg PO DAILY Vitamin D3 (Cholecalciferol) 5,000 Unit Cap 5,000 Units PO DAILY Oyster Shell 250 mg + Vit D Tb (Calcium/Vitamin D) 250 Mg Calcium (625 Mg)-125 Unit Tablet 500 Mg PO Q12HR Rocaltrol (Calcitriol) 0.25 Mcg Cap 0.5 Mcg PO DAILY Reported Losartan (Losartan Potassium) 25 Mg Tab 25 Mg PO DAILY Hydralazine HCl 25 Mg Tablet 10 Mg PO TID Pravastatin 40 Mg Tab 40 Mg PO DAILY ROS Review of Systems Except as stated in HPI: all other systems reviewed are Neg Physical Exam Vital Signs Vital Signs Date Time Temp Pulse Resp B/P (MAP) Pulse Ox O2 Delivery O2 Flow Rate FiO2 04/10/17 12:15 70 19 99/56 (70) 95 Nasal Cannula 2.00 04/10/17 11:30 57 17 90/57 (68) 95 Nasal Cannula 2.00 04/10/17 10:45 58 17 86/51 (63) 95 Nasal Cannula 2.00 04/10/17 10:45 90.0 04/10/17 10:00 63 19 103/58 (73) 97 Nasal Cannula 2.00 04/10/17 09:42 92.0 04/10/17 09:33 92.0 04/10/17 09:00 22 95 Nasal Cannula 2.00 Physical Exam GENERAL: Critically ill-appearing malnourished, dehydrated severely weakened male SKIN: Cool and dry. Poor skin turgor HEAD: Atraumatic. Normocephalic. EYES: Pupils equal and round. No scleral icterus. No injection or drainage. ENT: No nasal bleeding or discharge. Mucous membranes pink and dry. NECK: Trachea midline. No JVD. Uvula midline CARDIOVASCULAR: Normal rate, regular rhythm. RESPIRATORY: No accessory muscle use. Clear to auscultation. Breath sounds equal bilaterally. Nasal cannula at 2 L GASTROINTESTINAL: Abdomen soft, non-tender, nondistended. No guarding. MUSCULOSKELETAL: Extremities without clubbing, cyanosis, or edema. No obvious deformities. NEUROLOGICAL: Lethargic easily arousable. RASS -1. Alert and oriented 2 No gross focal/sensory deficits. Follows commands in all 4 extremities. Laboratory Laboratory Tests Test 04/10/17 09:10 04/10/17 10:00 04/10/17 11:30 Blood Urea Nitrogen 52 Creatinine 2.94 Random Glucose 62 Total Protein 5.3 Albumin 1.5 Calcium Level 6.7 Alkaline Phosphatase 115 Aspartate Amino Transf (AST/SGOT) 28 Alanine Aminotransferase (ALT/SGPT) 15 Total Bilirubin 0.2 Sodium Level 142 Potassium Level 3.9 Chloride Level 120 Carbon Dioxide Level 7.8 Anion Gap 14 Estimat Glomerular Filtration Rate 21 Protein Corrected Calcium 7.6 Troponin I 0.03 White Blood Count 4.3 Red Blood Count 3.04 Hemoglobin 8.9 Hematocrit 28.7 Mean Corpuscular Volume 94.5 Mean Corpuscular Hemoglobin 29.3 Mean Corpuscular Hemoglobin Concent 31.0 Red Cell Distribution Width 20.0 Platelet Count 103 Mean Platelet Volume 10.7 CBC Comment AUTO DIFF Differential Total Cells Counted 100 Neutrophils % (Manual) 63 Band Neutrophils % 12 Lymphocytes % 8 Monocytes % 9 Neutrophils # (Manual) 3.6 Metamyelocytes 6 Myelocytes 2 Nucleated Red Blood Cells 1 Differential Comment FINAL DIFF MANUAL Platelet Estimate LOW Platelet Morphology Comment ENLARGED [place] Cells 1+ Crenated Cell 1+ Prothrombin Time 15.7 Prothromb Time International Ratio 1.6 Activated Partial Thromboplast Time 36.9 Lactic Acid Level 0.9 Urine Color YELLOW Urine Turbidity CLOUDY Urine pH 5.5 Urine Specific [place] 1.013 Urine Protein 300 Urine Glucose (UA) NEG Urine Ketones TRACE Urine Occult Blood MOD Urine Nitrite POS Urine Bilirubin NEG Urine Urobilinogen LESS THAN 2.0 Urine Leukocyte Esterase LARGE Urine RBC 3 Urine WBC 136 Urine WBC Clumps RARE Urine Squamous Epithelial Cells <1 Urine Bacteria MANY Urine Mucus FEW Microscopic Urinalysis Comment CATH-CULTURE IND Date/Time Source Procedure Growth Status 04/10/17 10:00 Blood Peripheral Aerobic Blood Culture Pending Received 04/10/17 10:00 Blood Peripheral Anaerobic Blood Culture Pending Received 04/10/17 11:30 Urine Catheterized Urine Urine Culture Pending Received Result Diagram: 04/10/17 1000 04/10/17 0910 Imaging Last Impressions Head CT 04/10/17 0000 Signed Impressions: Service Date/Time: Monday, April 10, 2017 09:20 - CONCLUSION: Unremarkable study. Eduard Pillai MD Chest X-Ray 04/10/17 0000 Signed Impressions: Service Date/Time: Monday, April 10, 2017 09:02 - CONCLUSION: 1. Diffuse infiltrates involving the right lung consistent with probable pneumonia. 2. Cardiomegaly. Storm Weiner MD Abdomen/Pelvis CT 04/10/17 0000 Signed Impressions: Service Date/Time: Monday, April 10, 2017 09:20 - CONCLUSION: 1. The right lung base consolidation not present previously characteristic of pneumonia possibility of aspiration should be entertained in the appropriate clinical setting. 2. Bladder stone. 3. The previously seen right perinephric well- defined hemorrhage has not significantly changed and the patient has undergone embolization since that time. 4. The fluid collection which is well defined within the psoas muscle has increased in size slightly may represent retroperitoneal hemorrhages evolving and could be followed. 5. Retroperitoneal lymph nodes are similar not changed since 11/2016. Eduard Pillai MD Septic Shock Reassessment Septic shock perfusion: reassessment completed Caprini VTE Risk Assessment Caprini VTE Risk Assessment: No/Low Risk (score <= 1) VTE Pharm Contraindication: Hemorrhage Caprini Risk Assessment Model Point Value = 1 Point Value = 2 Point Value = 3 Point Value = 5 Age 41-60 Minor surgery BMI > 25 kg/m2 Swollen legs Varicose veins or History of unexplained or recurrent spontaneous Oral contraceptives or hormone replacement Sepsis (< 1 month) Serious lung disease, including pneumonia (< 1 month) Abnormal pulmonary function Acute myocardial infarction Congestive heart failure (< 1 month) History of inflammatory bowel disease Medical patient at bed rest Age 61-74 Arthroscopic surgery Major open surgery (> 45 min) Laparoscopic surgery (> 45 min) Malignancy Confined to bed (> 72 hours) Immobilizing plaster cast Central venous access Age >= 75 History of VTE Family history of VTE Factor V Leiden Prothrombin [id number] Lupus anticoagulant Anticardiolipin antibodies Elevated serum homocysteine Heparin-induced thrombocytopenia Other congenital or acquired thrombophilia Stroke (< 1 month) Elective arthroplasty Hip, pelvis, or leg fracture Acute spinal cord injury (< 1 month) Prophylaxis Regimen Total Risk Factor Score Risk Level Prophylaxis Regimen 0-1 Low Early ambulation 2 Moderate Order ONE of the following: *Sequential Compression Device (SCD) *Heparin 5000 units SQ BID 3-4 Higher Order ONE of the following medications: *Heparin 5000 units SQ TID *Enoxaparin/Lovenox 40 mg SQ daily (WT < 150 kg, CrCl > 30 mL/min) *Enoxaparin/Lovenox 30 mg SQ daily (WT < 150 kg, CrCl > 10-29 mL/min) *Enoxaparin/Lovenox 30 mg SQ BID (WT < 150 kg, CrCl > 30 mL/min) AND/OR *Sequential Compression Device (SCD) 5 or more Highest Order ONE of the following medications: *Heparin 5000 units SQ TID (Preferred with Epidurals) *Enoxaparin/Lovenox 40 mg SQ daily (WT < 150 kg, CrCl > 30 mL/min) *Enoxaparin/Lovenox 30 mg SQ daily (WT < 150 kg, CrCl > 10-29 mL/min) *Enoxaparin/Lovenox 30 mg SQ BID (WT < 150 kg, CrCl > 30 mL/min) AND *Sequential Compression Device (SCD) Assessment and Plan Assessment and Plan This is a 71-year-old debilitated critically ill-appearing male. The patient is S/P recent hospital discharge for spontaneous hemorrhage of the right mid pole of the kidney, right lower lobe pneumonia, GI bleed with positive Hemoccult on 03/20/17, now presenting for repeat admission with sepsis, bandemia, most likely secondary to right lower lobe pneumonia with possible evolving retroperitoneal hemorrhage with supratherapeutic INR 1.6 secondary to chronic anticoagulation for a history of A. fib.. Admit to ICU. Plan by systems: Neurologic: Metabolic encephalopathy Neurochecks per ICU protocol Obtain ammonia level Avoid long-acting sedative type medications Tylenol 650 mg every 6 hours when necessary for fever and/or pain Respiratory: Acute hypoxemic respiratory failure 04/10/17-emergently intubated a 8.0 ETT 24 cm at the lip Duo nebs every 4 hours when necessary for wheezing Ventilator bundle Obtain sputum culture follow-up results Recently hospitalized with right lower lobe pneumonia on vancomycin and Zosyn and oxacillin which was discontinued 03/18/17 Cardiovascular: History of Shawn kaye on chronic anticoagulation Coronary artery disease status post coronary stents 2, an aortic stent x2 History of CHF History of hypertension Cardiomegaly Septic shock versus hemorrhagic shock Hold Coumadin in the setting of active bleeding -reportedly family states patient stopped Coumadin on 02/28/17. INR on admission 1.6 Initial troponin 0.03, follow trend 04/10 EKG sinus bradycardia with first-degree AV block septal WV Vitamin K 10 mg 1 dose IV Transfuse FFP 1 unit Continue pravastatin 40 mg/day Repeat INR post transfusion Obtain echo-last echo 02/03/16 EF Pt received antihypertensive medications on 04/09/17 at 2100 Renal: BPH Hold Flomax in the setting of hypotension Insert White -- Strict I/Os FEN/GI: Acute kidney injury 2/2 hypotension Chronic kidney disease stage III Perinephric hemorrhage 8.5 cm Possible retroperitoneal hemorrhage Left renal cyst Urolithiasis Elevated BUN possibly secondary to active bleeding Metabolic acidosis Electrolyte derangement Severe protein calorie malnutrition GI bleed Elevated BUN secondary to most likely active bleeding and dehydration Insert NG tube low intermittent wall suction Patient Hemoccult positive this admission, Hemoccult positive last admission status post panendoscopy with benign findings GI consulted-appreciate recommendations Nephrology consulted Hypocalcemia- 2 grams IV calcium gluconate Monitor BMP Zofran for nausea Albumin 1.5 Obtain amylase, lipase levels Heme/ID: HCAP right lower lobe Bandemia Acute blood loss anemia Thrombocytopenia Patient received Zosyn and vancomycin in the ED Initial lactic acid 1.3, monitor serial levels, bands 12% Continue to monitor CBC Follow-up blood and sputum cultures Obtain pneumococcal antigen 1/2- influenza antigen-negative Transfuse 1 unit of packed red blood cells Obtain every 6 hours H&H's, obtain fibrinogen level, trend INR Discussed with Dr. Sanabria , invasive radiology possible retroperitoneal hemorrhage, images reviewed states possibly an abscess versus retroperitoneal hemorrhage. Continue monitoring closely hemoglobin and hematocrit, declines plan for possible emergent intervention Endocrine: Diabetes mellitus Glucose monitoring per ICU protocol, low dose regimen Initial glucose 61- 70 - 1 amp D50 given IV in ED Obtain thyroid panel MSK: Stage II gluteal/ sacral ulcers Obtain wound care consult -- SSI Prophylaxis: GI Prophylaxis Protonix infusion DVT Prophylaxis -- SCDs Hold Coumadin in the setting of possible bleed Lines: Right IJ central line, left radial arterial line (04/10/17) Dispo: my billing statement This patient remains critically ill with one or more organ systems which are or may become a threat to life. I have spent in excess of 75 minutes discontinuously in the care and management of this patient. This time is exclusive of procedures, and includes, but is not limited to, evaluation of the patient, review of the medical record, discussions with family, consultants, nursing staff, or respiratory therapy, and documentation in the medical record. Code Status Full Discussed Condition With Daughter and son and Dr. Daniele Mata Problem Qualifiers (1) T2DM (type 2 diabetes mellitus): (2) Sepsis: Qualified Codes: A41.9 - Sepsis, unspecified organism Lily Arroyo MD Apr 10, 2017 13:54
[2017-04-10] MEDS ORDERED: ROCURONIUM INJ 50 MG/5 ML VIAL ONE (13:56)
[2017-04-10] MEDS ORDERED: SUCCINYLCHOLINE CHLORIDE 200 MG/10 ML VIAL ONE (13:58)
[2017-04-10] MEDS ORDERED: EPINEPHrine HCL (1:10,000) 1 MG/10 ML SYRINGE ONE (13:59)
[2017-04-10] MEDS: LEVOFLOXACIN 750 MG PREMIX INJ 150 ML IV SCH (14:00)
[2017-04-10] MEDS ORDERED: ETOMIDATE 40 MG/20 ML VIAL ONE (14:02)
[2017-04-10] MEDS ORDERED: MIDAZOLAM HCL 5 MG/ML VIAL (1 ML) ONE (14:12)
[2017-04-10] MEDS ORDERED: MIDAZOLAM HCL 2 MG/2 ML VIAL IV PUSH ONE (14:30)
[2017-04-10] MEDS ORDERED: TERBUTALINE INJ 1 MG/ML AMP SQ PRN ×2 (15:00→22:15)
--- NOTE | 2017-04-10 15:06 | PD.PROCEDR ---
Procedure Note Procedure Endotracheal Intubation Diagnosis: Acute hypoxemic respiratory failure Indications: Acute hypoxemic respiratory failure Consent: Emergent, consent obtained from daughter Anesthesia: see MAR Description of the Procedure: The patient was positioned in the sniffing position. Pre-oxygenation was performed using a 100% BVM. Anesthesia was induced via rapid sequence with cricoid pressure. A Glidescope 4 was used for laryngoscopy and a Grade 1 view was obtained. A 8.0cuffed endotracheal tube was inserted atraumatically through the vocal cords. Confirmation of correct endotracheal tube placement was made by equal and bilateral breath sounds and colorimetric CO2 detection. The endotracheal tube was secured at 24 cm at the teeth. There were no immediate complications noted. The patient remained hemodynamically stable throughout the procedure. A chest x-ray has been ordered. I personally performed the procedure. Lily Arroyo MD Apr 10, 2017 15:05
--- NOTE | 2017-04-10 15:07 | PD.PROCEDR ---
Central Line Procedure REASON FOR PROCEDURE Central venous access PROCEDURE PERFORMED Central line placement: Right IJ CONSENT Informed consent for procedure was obtained emergent/obtained from daughter. The risks and benefits of the procedure were discussed to include but limited to bleeding, clot formation, infection, and even . ANESTHESIA Local injection of 1% Lidocaine DESCRIPTION OF THE PROCEDURE The patient was placed in supine, mild Trendelenburg position. The area was exposed and cleansed with ChloraPrep, times two. Large sterile drape was used to cover the patient, with the site exposed, under sterile conditions including cap, face mask, sterile gown, and sterile gloves. On single attempt, the introducer needle was inserted with negative pressure in syringe and venous flash was obtained. The guide wire was then advanced without any restriction and the needle was removed. The dilator was used without any complications. Using Seldinger technique the 7 Indonesian catheter was advanced over the guide wire to a depth of 17 centimeters. The guide wire was removed. All ports were aspirated with dark venous blood return and flushed easily with sterile saline. All ports were capped. Antibiotic disc was placed around central line at puncture site. The central line was secured to the skin with two interrupted 2.0 silk sutures. The area was bandaged with sterile see-through central line bandage. RADIOLOGICAL DATA Ultrasound guidance was used to locate the internal jugular. Doppler/color flow was used to confirm venous flow. COMPLICATIONS: No apparent complications ESTIMATED BLOOD LOSS: Less than 1 cc. Lily Arroyo MD Apr 10, 2017 15:07
--- NOTE | 2017-04-10 15:09 | PD.PROCEDR ---
Procedure Note Procedure Procedure: Arterial Line Placement Left radial Diagnosis: Hemodynamic instability Indications: Hemodynamic instability Consent: Emergent obtained from daughter Description of the Procedure: The left wrist was prepped and draped sterilely. 1 % lidocaine was used for local anesthesia. The pulse was located and a needle was advanced into the artery. A 20 gauge, 1.34 cm catheter was advanced into the artery using a modified Seldinger technique. The catheter was sutured to the skin and a sterile dressing was applied. The catheter was connected to a pressure transducer and an arterial waveform was noted. There were no immediate complications noted. There was minimal EBL. I personally performed the procedure. Lily Arroyo MD Apr 10, 2017 15:09
[2017-04-10] MEDS ORDERED: SODIUM BICARBONATE 8.4% INJ 50 MEQ/50 ML SYR IV PUSH ONE ×2 (15:30→22:15)
--- NOTE | 2017-04-10 15:46 | RADRPT ---
EXAM DATE/TIME: 04/10/2017 14:54 [place] COMPARISON: CHEST SINGLE AP, April 10, 2017, 9:02. INDICATIONS : Post intubation and central line placement. MEDICAL HISTORY : None. SURGICAL HISTORY : None. ENCOUNTER: Subsequent ACUITY: 1 day PAIN SCORE: Non-responsive. LOCATION: Bilateral chest FINDINGS: The right internal jugular central line has its tip in the superior vena cava in good position. There is no pneumothorax. The endotracheal tube has its tip 4 cm above the sandee in good position. Pulmon baljit infiltrates are noted throughout the right lung and within the left lung base. Aortic stent graft is noted within the descending thoracic aorta and abdominal aorta. CONCLUSION: 1. Right internal jugular central line in good position with its tip in the superior vena cava. 2. Endotracheal tube in good position 4 cm above the sanede. 3. No pneumothorax noted. 4. Interval slight worsening pulmonary infiltrates involving the right lung and left lung base. Storm Weiner MD on April 10, 2017 at 15:42 Board Certified Radiologist. This report was verified electronically.
[2017-04-10 15:57] LABS: HEMATOCRIT 25.8 % (39.0-51.0); HEMOGLOBIN 7.8 GM/DL (13.0-17.0); MEAN CELL VOLUME 93.4 FL (80.0-100.0); MEAN CORPUSCULAR HEMOGLOBIN 28.2 PG (27.0-34.0); MEAN CORPUSCULAR HGB CONC 30.2 % (32.0-36.0); PLATELET COUNT 108 TH/MM3 (150-450); RED BLOOD COUNT 2.76 MIL/MM3 (4.50-5.90); RED CELL DISTRIBUTION WIDTH 19.1 % (11.6-17.2); WHITE BLOOD COUNT 4.5 TH/MM3 (4.0-11.0)
[2017-04-10] MEDS ORDERED: PHYTONADIONE INJ 10 MG in DEXTROSE 5% IN WATER INJ 50 ML IV ONE ×2 (16:00)
[2017-04-10] MEDS: NOREPINEPHRINE 4 MG/D5W 250 ML IV PRN ×2 (16:01→20:55)
[2017-04-10] MEDS: PHENYLEPHRINE 40 MG in D5W 500 ML IV PRN ×3 (16:02→22:06)
[2017-04-10] MEDS: VASOPRESSIN 40 U/D5W 100 ML Titrate, Post Cardiac Surgery IV PRN ×2 (16:02)
[2017-04-10] MEDS: SODIUM CHLORIDE 0.9% FLUSH 10 ML FLUSH IV FLUSH PRN (16:03)
[2017-04-10 16:06] LABS: INTERNATIONAL NORMALIZED RATIO 1.6 RATIO; PROTHROMBIN TIME - PATIENT 16.4 SEC (9.8-11.6)
[2017-04-10 16:17] LABS: ALBUMIN 1.4 GM/DL (3.4-5.0); BICARBONATE 9.7 MEQ/L (21.0-32.0); CALCIUM 6.7 MG/DL (8.5-10.1); CALCIUM-PROTEIN CORRECTED 7.9 MG/DL (8.5-10.1); CREATININE 2.95 MG/DL (0.60-1.30); TOTAL BILIRUBIN ADULT 0.2 MG/DL (0.2-1.0); TOTAL PROTEIN 4.7 GM/DL (6.4-8.2)
--- NOTE | 2017-04-10 16:36 | PD.CONS ---
HPI History of Present Illness This is a 71 year old male with tubular adenoma, polyps, AF on coumadin, AAA, COPD, CKD, renal hematoma, known to our service from previous admissions who presented with AMS per EMR. Pt was found to be hypotensive. He is also anemic on admission with heme pos stool and hgb 8.9 and subsequent drop to 7.8. He had embolization right renal artery 03/09/17. CT 04/10/16 showed poss PNA, no change right pernephric hemorrhage since embolization, poss retroperitoneal hemorrhage. He had EGD and colonoscopy 01/29/[address] Lyons; EGD found peptic duodenitis; colonoscopy showed innumerable med sessile polyps ascending colon, 2 x sessile polyps transverse colon. It was recommended that he repeat colonoscopy in March. Hx obtained from EMR, pt noncontributory at this time. PFSH Past Medical History AAA CAD CHF COPD CKD AF on coumadin colon polyps Past Surgical History coronary stent placement hernia repair inguinal hernia repair Coded Allergies: No Known Allergies (Verified Allergy, Unknown, 03/31/17) Family History unk Social History no etoh or illicit drug use tobacco user per EMR Review of Systems noncontributory GI Exam Vitals I&O Vital Signs Date Time Temp Pulse Resp B/P (MAP) Pulse Ox O2 Delivery O2 Flow Rate FiO2 04/10/17 16:02 50 80/55 04/10/17 16:02 50 80/55 04/10/17 16:01 45 80/55 04/10/17 15:18 90.0 65 16 74/29 100 04/10/17 14:13 98 100 04/10/17 13:15 92.0 68 26 135/68 (90) 93 5.00 04/10/17 12:15 70 19 99/56 (70) 95 Nasal Cannula 2.00 04/10/17 11:30 57 17 90/57 (68) 95 Nasal Cannula 2.00 04/10/17 10:45 58 17 86/51 (63) 95 Nasal Cannula 2.00 04/10/17 10:45 90.0 04/10/17 10:00 63 19 103/58 (73) 97 Nasal Cannula 2.00 04/10/17 09:42 92.0 04/10/17 09:33 92.0 04/10/17 09:00 22 95 Nasal Cannula 2.00 I/O 04/09/17 04/09/17 04/09/17 04/10/17 04/10/17 04/10/17 07:00 15:00 23:00 07:00 15:00 23:00 Intake Total 2455.5 ml 450 ml Balance 2455.5 ml 450 ml Intake IV Total 2455.5 ml 400 ml Blood Product IV Normal Saline Flush 50 ml Laboratory Test 04/10/17 09:10 04/10/17 10:00 04/10/17 11:30 04/10/17 15:06 Blood Urea Nitrogen 52 MG/DL Creatinine 2.94 MG/DL Random Glucose 62 MG/DL Total Protein 5.3 GM/DL Albumin 1.5 GM/DL Calcium Level 6.7 MG/DL Alkaline Phosphatase 115 U/L Aspartate Amino Transf (AST/SGOT) 28 U/L Alanine Aminotransferase (ALT/SGPT) 15 U/L Total Bilirubin 0.2 MG/DL Sodium Level 142 MEQ/L Potassium Level 3.9 MEQ/L Chloride Level 120 MEQ/L Carbon Dioxide Level 7.8 MEQ/L Anion Gap 14 MEQ/L Estimat Glomerular Filtration Rate 21 ML/MIN Protein Corrected Calcium 7.6 MG/DL Troponin I 0.03 NG/ML White Blood Count 4.3 TH/MM3 4.5 TH/MM3 Red Blood Count 3.04 MIL/MM3 2.76 MIL/MM3 Hemoglobin 8.9 GM/DL 7.8 GM/DL Hematocrit 28.7 % 25.8 % Mean Corpuscular Volume 94.5 FL 93.4 FL Mean Corpuscular Hemoglobin 29.3 PG 28.2 PG Mean Corpuscular Hemoglobin Concent 31.0 % 30.2 % Red Cell Distribution Width 20.0 % 19.1 % Platelet Count 103 TH/MM3 108 TH/MM3 Mean Platelet Volume 10.7 FL 10.0 FL CBC Comment AUTO DIFF AUTO DIFF Differential Total Cells Counted 100 Neutrophils % (Manual) 63 % Band Neutrophils % 12 % Lymphocytes % 8 % Monocytes % 9 % Neutrophils # (Manual) 3.6 TH/MM3 Metamyelocytes 6 % Myelocytes 2 % Nucleated Red Blood Cells 1 /100 WBC Differential Comment FINAL DIFF MANUAL Platelet Estimate LOW Platelet Morphology Comment ENLARGED [place] Cells 1+ Crenated Cell 1+ Prothrombin Time 15.7 SEC 16.4 SEC Prothromb Time International Ratio 1.6 RATIO 1.6 RATIO Activated Partial Thromboplast Time 36.9 SEC Lactic Acid Level 0.9 mmol/L B-Type Natriuretic Peptide 269 PG/ML Urine Color YELLOW Urine Turbidity CLOUDY Urine pH 5.5 Urine Specific [place] 1.013 Urine Protein 300 mg/dL Urine Glucose (UA) NEG mg/dL Urine Ketones TRACE mg/dL Urine Occult Blood MOD Urine Nitrite POS Urine Bilirubin NEG Urine Urobilinogen LESS THAN 2.0 MG/DL Urine Leukocyte Esterase LARGE Urine RBC 3 /hpf Urine WBC 136 /hpf Urine WBC Clumps RARE Urine Squamous Epithelial Cells <1 /hpf Urine Bacteria MANY /hpf Urine Mucus FEW /lpf Microscopic Urinalysis Comment CATH-CULTURE IND Ammonia 89 MCMOL/L Total Creatine Kinase 303 U/L Test 04/10/17 15:12 Blood Gas Puncture Site ART LINE Blood Gas Patient Temperature 98.6 Blood Gas HCO3 8 mmol/L Blood Gas Base Excess -22.9 mmol/L Blood Gas Oxygen Saturation 95 % Arterial Blood pH 6.83 Arterial Blood Partial Pressure CO2 51 mmHg Arterial Blood Partial Pressure O2 403 mmHg Arterial Blood Oxygen Content 11.7 Vol % Arterial Blood Carboxyhemoglobin 0.0 % Arterial Blood Methemoglobin 3.1 % Blood Gas Hemoglobin 8.1 G/DL Oxygen Delivery Device VENTILATOR Blood Gas Ventilator Setting A/C 500/16/5PEEP Blood Gas Inspired Oxygen 100 % Date/Time Source Procedure Growth Status 04/10/17 10:00 Blood Peripheral Aerobic Blood Culture Pending Received 04/10/17 10:00 Blood Peripheral Anaerobic Blood Culture Pending Received 04/10/17 13:00 Nasal Washing Influenza Types A,B Antigen (CHRISTO) - Final NEGATIVE FOR FLU A AND B ANTIGEN.... Complete 04/10/17 11:30 Urine Catheterized Urine Urine Culture Pending Received Physical Examination HEENT: Pupils round and reactive to light; normocephalic; atraumatic; no jaundice. Throat is clear. NECK: Neck is supple, no JVD, no lymphadenopathy. CHEST: Chest is clear to auscultation and percussion. CARDIAC: Regular rate and rhythm with no murmur gallop or rubs. ABDOMEN: Soft, nondistended, nontender; no hepatosplenomegaly; bowel sounds are present in all four quadrants. EXTREMITIES: No clubbing, cyanosis, or edema. SKIN: Normal; no rash; no jaundice. MASTER COASTWISE YACHT: No focal deficits; alert and oriented times three. Assessment and Plan Plan ASSESSMENT - anemia, heme pos stool - hgb 8.9 on admission, dropped to 7.8. according to past labs this is not far from his baseline. CT showed poss PNA, no change right perinephric hemorrhage since embolization , poss retroperitoneal hemorrhage. was on coumadin but has not had in few days. EGD 01/29/17 found peptic duodenitis; colonoscopy 01/29/17 showed innumerable med sessile polyps ascending colon, 2 x sessile polyps transverse colon, rec to rpt cscope in 2m. INR 1.6 today, was on coumadin but has not had in past few days. d/w CCM, not stable for procedures at this time, cannot place NGT or OGT to assess for UGIB - hx perinephric bleed, concern for retroperitoneal hemorrhage per CT as above s/p embolization right renal artery 03/09/17 IR consulted PLAN - EGD +/- colonoscopy, when pt more stable, tentatively later this week - await IR consult - monitor labs - transfuse as needed - hold coumadin - further recs as case unfolds THis pt seen by myself and Dr Godoy and this note is written on his behalf Magaly Ortiz Apr 10, 2017 16:36
--- NOTE | 2017-04-10 16:44 | PD.CONS ---
HPI Service Nephrology Consult Requested By Dr. Arroyo Reason for Consult Acute and chronic kidney disease Primary Care Physician [facility] History of Present Illness Patient is a 71-year-old the male with history of chronic kidney disease, has right retroperitoneal bleed the status post embolization, he has atrial fibrillation and the developed hypotension thought to have retroperitoneal bleed and has septic shock and hemorrhagic shock currently acidotic intubated doing poorly, his last creatinine was 2.9, urine output is low, he is on ventilator. Review of Systems ROS Limitations: Clinical Condition Past Family Social History Allergies: Coded Allergies: No Known Allergies (Verified Allergy, Unknown, 03/31/17) Past Medical History Diabetes Hypertension Chronic kidney disease Retroperitoneal bleed Right perinephric bleed Embolization Coronary artery disease Status post stents Hyperlipidemia COPD CHF Bladder dysfunction Osteoarthritis Renal cyst Inguinal hernia Bladder stone Lumbar pain Pancreatitis Past Surgical History Missing teeth Stents Aortic Embolization Inguinal hernia repair 3 times Reported Medications Reported Meds & Active Scripts Active Loperamide (Loperamide HCl) 2 Mg Cap 2 Mg PO DIRECTED PRN 30 Days One capsule after each loose stool. Not to exceed 8 capsules per day. Magnesium Oxide 400 Mg Tab 400 Mg PO DAILY 30 Days Coreg (Carvedilol) 6.25 Mg Tab 6.25 Mg PO Q12HR Pantoprazole (Pantoprazole Sodium) 40 Mg Tab 40 Mg PO DAILY Ferosul (Ferrous Sulfate) 325 Mg Tablet 325 Mg PO DAILY Vitamin D3 (Cholecalciferol) 5,000 Unit Cap 5,000 Units PO DAILY Oyster Shell 250 mg + Vit D Tb (Calcium/Vitamin D) 250 Mg Calcium (625 Mg)-125 Unit Tablet 500 Mg PO Q12HR Rocaltrol (Calcitriol) 0.25 Mcg Cap 0.5 Mcg PO DAILY Reported Losartan (Losartan Potassium) 25 Mg Tab 25 Mg PO DAILY Hydralazine HCl 25 Mg Tablet 10 Mg PO TID Pravastatin 40 Mg Tab 40 Mg PO DAILY Active Ordered Medications Current Medications Medications (Trade) Dose Ordered Sig/Ana Route Start Time Stop Time Status Last Admin Pantoprazole Sodium 80 mg/ Sodium Chloride 100 ml @ 10 mls/hr Q10H IV 04/10/17 11:52 04/10/17 12:13 (NS Flush) 2 ml UNSCH PRN IV FLUSH 04/10/17 12:00 04/10/17 16:03 (NS Flush) 2 ml BID IV FLUSH 04/10/17 21:00 (Tylenol) 650 mg Q6H PRN PO 04/10/17 12:00 (Pepcid Inj) 10 mg Q12HR PRN IV PUSH 04/10/17 21:00 (Pepcid) 10 mg Q12HR PO 04/10/17 21:00 (Zofran Inj) 4 mg Q6H PRN IV PUSH 04/10/17 12:00 (Duoneb Neb) 1 ampule Q4HR NEB PRN NEB 04/10/17 12:45 Miscellaneous Information 1 Q361D XX 04/10/17 12:00 (Chlorhexidine 2% Cloth) 3 pack Taper DAILY@04 TOP 04/11/17 04:00 04/07/18 03:59 (Chlorhexidine 2% Cloth) 3 pack UNSCH PRN TOP 04/10/17 12:00 (Valerie-Colace) 1 tab BID PO 04/10/17 21:00 (Milk Of Magnesia Liq) 30 ml Q12H PRN PO 04/10/17 12:00 (Senokot) 17.2 mg Q12H PRN PO 04/10/17 12:00 (Dulcolax Supp) 10 mg DAILY PRN RECTAL 04/10/17 12:00 (Lactulose Liq) 30 ml DAILY PRN PO 04/10/17 12:00 Azithromycin 500 mg/Sodium Chloride 250 ml @ 250 mls/hr Q24H IV 04/10/17 13:00 04/10/17 13:00 Levofloxacin/ Dextrose 150 ml @ 100 mls/hr Q48H IV 04/10/17 14:00 04/10/17 14:00 (D50w (Vial) Inj) 50 ml UNSCH PRN IV PUSH 04/10/17 12:15 04/10/17 12:55 (Glucagon Inj) 1 mg UNSCH PRN OTHER 04/10/17 12:15 (NovoLOG SUPPLEMENTAL SCALE) 1 ACHS SLIDING SCALE SQ 04/10/17 17:00 Sodium Bicarbonate 100 meq/Dextrose 1,000 ml @ 125 mls/hr Q8H IV 04/10/17 13:30 04/10/17 13:30 Piperacillin Sod/ Tazobactam Sod 50 ml @ 100 mls/hr Q6H IV 04/10/17 16:00 Fentanyl Citrate 250 ml @ 5 mls/hr TITRATE PRN IV 04/10/17 14:45 Phenylephrine HCl 40 mg/Dextrose 500 ml @ 30 mls/hr TITRATE PRN IV 04/10/17 15:00 04/10/17 16:02 (Brethine Inj) 1 mg UNSCH PRN SQ 04/10/17 15:00 Vasopressin 40 units/Dextrose 100 ml @ 1.5 mls/hr TITRATE PRN IV 04/10/17 15:15 04/10/17 16:02 (SoluCORTEF INJ) 100 mg Q8HR IV PUSH 04/10/17 22:00 Norepinephrine Bitartrate 250 ml @ 7.5 mls/hr TITRATE PRN IV 04/10/17 15:15 04/10/17 16:01 Phytonadione 10 mg/Dextrose 51 ml @ 102 mls/hr ONCE ONCE IV 04/10/17 16:00 04/10/17 16:29 Family History Noncontributory Social History History of smoking Physical Exam Vital Signs Vital Signs Date Time Temp Pulse Resp B/P (MAP) Pulse Ox O2 Delivery O2 Flow Rate FiO2 04/10/17 16:02 50 80/55 04/10/17 16:02 50 80/55 04/10/17 16:01 45 80/55 04/10/17 15:18 90.0 65 16 74/29 100 04/10/17 14:13 98 100 04/10/17 13:15 92.0 68 26 135/68 (90) 93 5.00 04/10/17 12:15 70 19 99/56 (70) 95 Nasal Cannula 2.00 04/10/17 11:30 57 17 90/57 (68) 95 Nasal Cannula 2.00 04/10/17 10:45 58 17 86/51 (63) 95 Nasal Cannula 2.00 04/10/17 10:45 90.0 04/10/17 10:00 63 19 103/58 (73) 97 Nasal Cannula 2.00 04/10/17 09:42 92.0 04/10/17 09:33 92.0 04/10/17 09:00 22 95 Nasal Cannula 2.00 Physical Exam GENERAL: Elderly male intubated appears emaciated SKIN: Cold and dry. HEAD: Normocephalic. EYES: No scleral icterus. No injection or drainage. NECK: Supple, trachea midline. No JVD or lymphadenopathy. CARDIOVASCULAR: Tachycardia RESPIRATORY: Breath sounds equal bilaterally. No accessory muscle use. GASTROINTESTINAL: Abdomen distended. EXTREMITIES: No cyanosis, or edema. NEUROLOGICAL: Obtunded Laboratory Laboratory Tests Test 04/10/17 09:10 04/10/17 10:00 04/10/17 11:30 04/10/17 15:06 Blood Urea Nitrogen 52 51 Creatinine 2.94 2.95 Random Glucose 62 164 Total Protein 5.3 4.7 Albumin 1.5 1.4 Calcium Level 6.7 6.7 Alkaline Phosphatase 115 105 Aspartate Amino Transf (AST/SGOT) 28 31 Alanine Aminotransferase (ALT/SGPT) 15 16 Total Bilirubin 0.2 0.2 Sodium Level 142 143 Potassium Level 3.9 3.8 Chloride Level 120 120 Carbon Dioxide Level 7.8 9.7 Anion Gap 14 13 Estimat Glomerular Filtration Rate 21 21 Protein Corrected Calcium 7.6 7.9 Troponin I 0.03 White Blood Count 4.3 4.5 Red Blood Count 3.04 2.76 Hemoglobin 8.9 7.8 Hematocrit 28.7 25.8 Mean Corpuscular Volume 94.5 93.4 Mean Corpuscular Hemoglobin 29.3 28.2 Mean Corpuscular Hemoglobin Concent 31.0 30.2 Red Cell Distribution Width 20.0 19.1 Platelet Count 103 108 Mean Platelet Volume 10.7 10.0 CBC Comment AUTO DIFF AUTO DIFF Differential Total Cells Counted 100 Neutrophils % (Manual) 63 Band Neutrophils % 12 Lymphocytes % 8 Monocytes % 9 Neutrophils # (Manual) 3.6 Metamyelocytes 6 Myelocytes 2 Nucleated Red Blood Cells 1 Differential Comment FINAL DIFF MANUAL Platelet Estimate LOW Platelet Morphology Comment ENLARGED [place] Cells 1+ Crenated Cell 1+ Prothrombin Time 15.7 16.4 Prothromb Time International Ratio 1.6 1.6 Activated Partial Thromboplast Time 36.9 Lactic Acid Level 0.9 B-Type Natriuretic Peptide 269 Urine Color YELLOW Urine Turbidity CLOUDY Urine pH 5.5 Urine Specific [place] 1.013 Urine Protein 300 Urine Glucose (UA) NEG Urine Ketones TRACE Urine Occult Blood MOD Urine Nitrite POS Urine Bilirubin NEG Urine Urobilinogen LESS THAN 2.0 Urine Leukocyte Esterase LARGE Urine RBC 3 Urine WBC 136 Urine WBC Clumps RARE Urine Squamous Epithelial Cells <1 Urine Bacteria MANY Urine Mucus FEW Microscopic Urinalysis Comment CATH-CULTURE IND Ammonia 89 Total Creatine Kinase 303 Thyroid Stimulating Hormone 3rd Gen 3.050 Test 04/10/17 15:12 Blood Gas Puncture Site ART LINE Blood Gas Patient Temperature 98.6 Blood Gas HCO3 8 Blood Gas Base Excess -22.9 Blood Gas Oxygen Saturation 95 Arterial Blood pH 6.83 Arterial Blood Partial Pressure CO2 51 Arterial Blood Partial Pressure O2 403 Arterial Blood Oxygen Content 11.7 Arterial Blood Carboxyhemoglobin 0.0 Arterial Blood Methemoglobin 3.1 Blood Gas Hemoglobin 8.1 Oxygen Delivery Device VENTILATOR Blood Gas Ventilator Setting A/C 500/16/5PEEP Blood Gas Inspired Oxygen 100 Date/Time Source Procedure Growth Status 04/10/17 10:00 Blood Peripheral Aerobic Blood Culture Pending Received 04/10/17 10:00 Blood Peripheral Anaerobic Blood Culture Pending Received 04/10/17 13:00 Nasal Washing Influenza Types A,B Antigen (CHRISTO) - Final NEGATIVE FOR FLU A AND B ANTIGEN.... Complete 04/10/17 11:30 Urine Catheterized Urine Urine Culture Pending Received Result Diagram: 04/10/17 1506 04/10/17 1506 Imaging Last Impressions Head CT 04/10/17 0000 Signed Impressions: Service Date/Time: Monday, April 10, 2017 09:20 - CONCLUSION: Unremarkable study. K. Lio Pillai MD Chest X-Ray 04/10/17 0000 Signed Impressions: Service Date/Time: Monday, April 10, 2017 14:54 - CONCLUSION: 1. Right internal jugular central line in good position with its tip in the superior vena cava. 2. Endotracheal tube in good position 4 cm above the sandee. 3. No pneumothorax noted. 4. Interval slight worsening pulmonary infiltrates involving the right lung and left lung base. Storm Weiner MD Abdomen/Pelvis CT 04/10/17 0000 Signed Impressions: Service Date/Time: Monday, April 10, 2017 09:20 - CONCLUSION: 1. The right lung base consolidation not present previously characteristic of pneumonia possibility of aspiration should be entertained in the appropriate clinical setting. 2. Bladder stone. 3. The previously seen right perinephric well- defined hemorrhage has not significantly changed and the patient has undergone embolization since that time. 4. The fluid collection which is well defined within the psoas muscle has increased in size slightly may represent retroperitoneal hemorrhages evolving and could be followed. 5. Retroperitoneal lymph nodes are similar not changed since 11/2016. Eduard Pillai MD Assessment and Plan Problem List: (1) Acute renal failure ICD Codes: N17.9 - Acute kidney failure, unspecified Status: Acute Plan: Patient appears to have acute tubular necrosis Oliguria Multiorgan failure Severe acidosis Hemorrhagic and septic shock retro peritoneal bleed Poor prognosis discussed with Dr. Arroyo I agree with supportive care vasopressors and sodium bicarbonate drip (2) Metabolic acidosis ICD Codes: E87.2 - Acidosis Plan: On bicarbonate (3) Hemorrhagic shock ICD Codes: R57.8 - Other shock Plan: Monitor hemoglobin may need transfusion (4) Septic shock ICD Codes: A41.9 - Sepsis, unspecified organism; R65.21 - Severe sepsis with septic shock Plan: On antibiotic Levaquin, Zosyn and Zithromax (5) Acute blood loss anemia ICD Codes: D62 - Acute posthemorrhagic anemia Status: Resolved Plan: As above (6) Sepsis ICD Codes: A41.9 - Sepsis, unspecified organism Status: Acute Problem Qualifiers (1) Sepsis: Qualified Codes: A41.9 - Sepsis, unspecified organism Cecilio Howard MD Apr 10, 2017 16:44
[2017-04-10 16:46] LABS: BANDS 25 % (0-6); LYMPHOCYTES 4 % (9-44); METAMYELOCYTES 5 % (0-1); MONOCYTES 1 % (0-8); MYELOCYTES 6 % (0-0); NEUTROPHIL # MANUAL DIFF 4.3 TH/MM3 (1.8-7.7); POLYS (SEG NEUTROPHILS) 56 % (16-70); PROMYELOCYTES 3 % (0-0)
[2017-04-10 16:47] LABS: BURR CELLS 2+ (NORMAL)
[2017-04-10] MEDS: PIPERACIL-TAZO 3.375 GM PREMIX 50 ML IV SCH ×2 (17:00→21:35)
[2017-04-10] MEDS: INSULIN ASPART SUPPLEMENTAL SCALE SQ SCH ×2 (17:10→21:34)
--- NOTE | 2017-04-10 17:17 | PD.WCN.NOT ---
Wound Consult Description: Consult for sacral/gluteal cleft wounds per Dr Arroyo Communicated with: Dr Cruz Quiroz, RN Additional Information: Attempted to see patient on [facility] for wounds. RN states that the patient is unstable and asked if magnetic tape typewriter operator could check back tomorrow. Patient wounds not visualized at this time. Mariann Deutsch [facility] Apr 10, 2017 17:17
[2017-04-10] MEDS: HYDROCORTISONE SOD SUCCINATE 100 MG VIAL IV PUSH SCH ×2 (17:25→21:35)
[2017-04-10] MEDS: fentaNYL DRIP 250 ML IV PRN (17:25)
[2017-04-10 17:40] LABS: AMYLASE 27 U/L (25-115); LIPASE 76 U/L (73-393)
--- NOTE | 2017-04-10 17:43 | EKG ---
Date Performed: 04/10/2017 Time Performed: 08:50:28 PTAGE: 71 years EKG: SINUS BRADYCARDIA WITH FIRST DEGREE AV BLOCK LOW QRS VOLTAGE SEPTAL MYOCARDIAL INFARCTION A BNORMAL ECG PREVIOUS TRACING 01/22/17 Compared to prior tracing no significant change DOCTOR: Claudia Gonzalez Interpretating Date/Time 04/10/2017 17:41:36
[2017-04-10] MEDS: FAMOTIDINE 20 MG TAB PO SCH (21:00)
[2017-04-10] MEDS: DOCUSATE SODIUM 50 MG/SENNA 8.6 MG TAB PO SCH (21:00)
[2017-04-10] MEDS ORDERED: FAMOTIDINE 20 MG/2 ML VIAL IV PUSH PRN (21:00)
[2017-04-10] MEDS: SODIUM BICARBONATE 8.4% INJ 150 MEQ in DEXTROSE 5% IN WATE 1000ML INJ 1,000 ML IV SCH ×2 (21:15)
[2017-04-10] MEDS: SODIUM CHLORIDE 0.9% FLUSH 10 ML FLUSH IV FLUSH SCH (21:34)
[2017-04-10] MEDS ORDERED: ALBUMIN 25% INJ 50 ML IV ONE (22:15)
[2017-04-11] VITALS (32 sets, daily range): BP systolic 77–172; BP diastolic 41–80; PULSE 57–77; RESP 16–17; TEMP 99.5–100.1; O2SAT 87–100
[2017-04-11] MEDS: NOREPINEPHRINE 4 MG/D5W 250 ML IV PRN ×5 (00:08→17:00)
[2017-04-11] MEDS: PHENYLEPHRINE INJ 160 MG in DEXTROSE 5% IN WATE 500 ML INJ 484 ML IV PRN ×6 (00:08→19:29)
[2017-04-11] MEDS: VASOPRESSIN 40 U/D5W 100 ML Titrate, Post Cardiac Surgery IV PRN ×2 (00:09)
[2017-04-11 02:25] LABS: HEMATOCRIT 26.6 % (39.0-51.0); HEMOGLOBIN 8.3 GM/DL (13.0-17.0)
[2017-04-11 02:52] LABS: BICARBONATE 16.3 MEQ/L (21.0-32.0); BLOOD UREA NITROGEN 48 MG/DL (7-18); CALCIUM 6.1 MG/DL (8.5-10.1); CHLORIDE 109 MEQ/L (98-107); CREATININE 3.03 MG/DL (0.60-1.30); FREE T3 LESS THAN 0.50 PG/ML (2.18-3.98); GLOMERULAR FILTRATION RATE 20 ML/MIN (>89); GLUCOSE,RANDOM 278 MG/DL (74-106); SODIUM (NA) 138 MEQ/L (136-145); TROPONIN I 0.31 NG/ML (0.02-0.05)
[2017-04-11 03:04] LABS: TOTAL PROTEIN 4.8 GM/DL (6.4-8.2)
[2017-04-11 03:07] LABS: CALCIUM-PROTEIN CORRECTED 7.2 MG/DL (8.5-10.1)
[2017-04-11] MEDS: PIPERACIL-TAZO 3.375 GM PREMIX 50 ML IV SCH ×4 (03:40→22:09)
[2017-04-11] MEDS: CHLORHEXIDINE GLUCONATE 2 % 1 PACK (2 CLOTHS) TOP SCH (03:41)
[2017-04-11] MEDS ORDERED: INSULIN REGULAR (IV INFUSION) 100 UNITS in SODIUM CHLORIDE 0.9% INJ 99 ML IV PRN (04:30)
[2017-04-11] MEDS ORDERED: DEXTROSE 50% IN WATER 50 ML VIAL(D50) IV PUSH PRN (04:30)
[2017-04-11] MEDS ORDERED: MISC INFORMATION OTHER ONE (04:30)
[2017-04-11 04:53] LABS: PHOSPHORUS 6.5 MG/DL (2.5-4.9)
[2017-04-11 04:55] LABS: HEMATOCRIT 27.5 % (39.0-51.0); HEMOGLOBIN 8.7 GM/DL (13.0-17.0); MEAN CELL VOLUME 89.6 FL (80.0-100.0); MEAN CORPUSCULAR HEMOGLOBIN 28.3 PG (27.0-34.0); MEAN CORPUSCULAR HGB CONC 31.6 % (32.0-36.0); MEAN PLATELET VOLUME 10.4 FL (7.0-11.0); PLATELET COUNT 95 TH/MM3 (150-450); RED BLOOD COUNT 3.07 MIL/MM3 (4.50-5.90); RED CELL DISTRIBUTION WIDTH 18.4 % (11.6-17.2); WHITE BLOOD COUNT 4.6 TH/MM3 (4.0-11.0)
[2017-04-11] MEDS: HYDROCORTISONE SOD SUCCINATE 100 MG VIAL IV PUSH SCH ×3 (05:08→22:10)
[2017-04-11] MEDS: PANTOPRAZOLE INJ 80 MG in SODIUM CHLORIDE 0.9% INJ 100 ML IV SCH ×2 (05:09→15:56)
[2017-04-11 05:13] LABS: INTERNATIONAL NORMALIZED RATIO 1.6 RATIO; PROTHROMBIN TIME - PATIENT 16.4 SEC (9.8-11.6)
[2017-04-11 05:31] LABS: BANDS 25 % (0-6); CORRECTED NUCLEATED RBC 5 /100 WBC (0-0); LYMPHOCYTES 6 % (9-44); METAMYELOCYTES 22 % (0-1); MONOCYTES 4 % (0-8); NEUTROPHIL # MANUAL DIFF 4.1 TH/MM3 (1.8-7.7); NUCLEATED RED BLOOD CELL 5 (0-0); POLYS (SEG NEUTROPHILS) 43 % (16-70)
[2017-04-11 05:33] LABS: ACANTHOCYTES 2+ (NORMAL)
[2017-04-11] MEDS: SODIUM BICARBONATE 8.4% INJ 150 MEQ in DEXTROSE 5% IN WATE 1000ML INJ 1,000 ML IV SCH ×2 (05:36)
[2017-04-11] MEDS: FAMOTIDINE 20 MG TAB PO SCH ×2 (09:00→20:18)
[2017-04-11] MEDS: DOCUSATE SODIUM 50 MG/SENNA 8.6 MG TAB PO SCH ×2 (09:00→20:18)
[2017-04-11] MEDS: SODIUM CHLORIDE 0.9% FLUSH 10 ML FLUSH IV FLUSH SCH ×2 (09:24→21:30)
[2017-04-11] MEDS ORDERED: POTASSIUM CHLOR 40 MEQ PREMIX 100 ML IV ONE (09:30)
[2017-04-11] MEDS ORDERED: SODIUM BICARBONATE 8.4% INJ 50 MEQ/50 ML SYR IV PUSH ONE (09:45)
[2017-04-11] MEDS ORDERED: CALCIUM GLUCONATE INJ 2 GM in DEXTROSE 5% IN WATER 100ML INJ 100 ML IV ONE ×2 (10:00)
[2017-04-11] MEDS: AZITHROMYCIN INJ 500 MG in SODIUM CHLOR 0.9% 250 ML INJ 250 ML IV SCH (12:52)
--- NOTE | 2017-04-11 14:03 | HHI.NPPN ---
Subjective History of Present Illness 71-year-old male with history of chronic kidney disease, now with acute renal failure, multiorgan failure, septic and hemorrhagic shock Objective Data Data 04/11/17 04/12/17 19:00 07:00 Intake Total 1380 ml Balance 1380 ml Intake IV Total 1380 ml Vital Signs Date Time Temp Pulse Resp B/P (MAP) Pulse Ox O2 Delivery O2 Flow Rate FiO2 04/11/17 13:15 68 129/46 04/11/17 13:00 99 40 04/11/17 12:15 77 134/46 04/11/17 12:00 66 04/11/17 12:00 100.0 66 16 77/42 (54) 94 108/42 (64) 04/11/17 12:00 100 04/11/17 11:18 69 111/42 04/11/17 11:18 73 118/53 04/11/17 11:15 99 40 04/11/17 11:00 100.2 69 16 129/54 (79) 98 04/11/17 10:35 70 105/41 04/11/17 10:33 100.2 70 17 84/43 (57) 96 107/41 (63) 04/11/17 10:00 70 04/11/17 10:00 100.2 70 16 91/49 (63) 97 145/71 (95) 04/11/17 09:40 70 145/67 04/11/17 09:40 70 145/67 04/11/17 09:17 70 152/77 04/11/17 09:17 70 152/77 04/11/17 09:00 100.2 70 16 157/77 (103) 97 04/11/17 09:00 70 157/77 04/11/17 09:00 70 157/77 04/11/17 08:50 69 157/77 04/11/17 08:50 69 157/77 04/11/17 08:34 100 50 04/11/17 08:30 71 163/79 04/11/17 08:00 100 04/11/17 08:00 70 04/11/17 08:00 70 169/80 04/11/17 08:00 70 169/80 04/11/17 08:00 100.1 70 16 105/55 (72) 99 169/80 (109) 04/11/17 07:00 69 159/79 04/11/17 07:00 69 159/79 04/11/17 07:00 69 159/79 04/11/17 07:00 99.7 69 16 159/79 (105) 100 04/11/17 06:53 67 161/79 04/11/17 06:41 68 166/80 04/11/17 06:41 68 166/80 04/11/17 06:00 69 04/11/17 04:10 98 100 04/11/17 04:01 98.2 76 16 116/58 (77) 97 157/44 (81) 04/11/17 04:00 69 04/11/17 04:00 98.2 75 16 158/44 (82) 96 04/11/17 04:00 70 04/11/17 03:41 77 167/43 04/11/17 03:30 97.9 77 16 167/43 (84) 98 04/11/17 03:00 97.7 75 16 167/43 (84) 99 04/11/17 02:30 97.9 75 16 166/43 (84) 99 04/11/17 02:00 75 04/11/17 02:00 98.1 74 16 112/56 (74) 97 155/45 (81) 04/11/17 01:30 98.4 76 16 152/44 (80) 99 04/11/17 01:00 98.8 76 16 142/46 (78) 99 04/11/17 00:30 99.1 69 16 130/46 (74) 97 04/11/17 00:26 96 70 04/11/17 00:09 75 155/47 04/11/17 00:08 75 104/53 04/11/17 00:08 74 104/53 04/11/17 00:00 68 04/11/17 00:00 87 50 04/11/17 00:00 70 04/11/17 00:00 99.5 66 16 104/53 (70) 88 139/48 (78) 04/10/17 23:30 99.9 68 16 120/50 (73) 100 04/10/17 23:30 99.9 68 16 120/50 (73) 100 04/10/17 23:19 100 50 04/10/17 23:00 100.2 69 18 140/47 (78) 100 04/10/17 22:30 100.8 63 18 131/44 (73) 100 04/10/17 22:06 64 121/43 04/10/17 22:00 63 04/10/17 22:00 101.1 64 18 114/55 (74) 100 111/45 (67) 04/10/17 22:00 100 04/10/17 21:30 101.3 67 18 128/39 (68) 100 04/10/17 21:00 101.3 67 18 130/39 (69) 100 04/10/17 20:55 67 132/39 04/10/17 20:50 100 100 04/10/17 20:22 100 100 04/10/17 20:18 69 119/31 04/10/17 20:00 101.0 70 16 118/56 (76) 100 120/35 (63) 04/10/17 20:00 50 04/10/17 20:00 70 04/10/17 19:39 70 118/37 04/10/17 19:39 70 118/37 04/10/17 19:39 70 118/37 04/10/17 18:00 98.2 80 18 100 04/10/17 17:07 100 50 04/10/17 17:04 96.0 108 19 133/42 98 04/10/17 17:00 96.5 104 18 100 04/10/17 16:02 50 80/55 04/10/17 16:02 50 80/55 04/10/17 16:01 45 80/55 04/10/17 16:00 94.6 78 16 84 04/10/17 15:18 90.0 65 16 74/29 100 04/10/17 15:00 59 04/10/17 15:00 59 16 86/50 (62) 84 04/10/17 14:13 98 100 -: 04/11/17 0440 04/11/17 0135 Physical Exam General Appearance: Pale Neck Neck Exam: Neck Supple Pulmonary Resp Exam: Clear Bilaterally Cardiology CV Exam: Regular, Normal Sinus Rhythm Gastrointestinal/Abdomen GI Exam: Soft, Non-Tender Extremeties Extremities Exam: No Edema Assessment/Plan Problem List: (1) Acute renal failure ICD Codes: N17.9 - Acute kidney failure, unspecified Status: Acute Plan: Patient appears to have acute tubular necrosis Oliguria Multiorgan failure Severe acidosis Hemorrhagic and septic shock On vasopressors retro peritoneal bleed Poor prognosis Potassium and bicarbonate given earlier Continue supportive care urine output remains low (2) Metabolic acidosis ICD Codes: E87.2 - Acidosis Plan: On bicarbonate (3) Hemorrhagic shock ICD Codes: R57.8 - Other shock Plan: Monitor hemoglobin may need transfusion (4) Septic shock ICD Codes: A41.9 - Sepsis, unspecified organism; R65.21 - Severe sepsis with septic shock Plan: On antibiotic Levaquin, Zosyn and Zithromax (5) Acute blood loss anemia ICD Codes: D62 - Acute posthemorrhagic anemia Status: Resolved Plan: As above (6) Sepsis ICD Codes: A41.9 - Sepsis, unspecified organism Status: Acute Problem Qualifiers (1) Sepsis: Qualified Codes: A41.9 - Sepsis, unspecified organism Cecilio Howard MD Apr 11, 2017 14:03
[2017-04-11] MEDS: SODIUM BICARBONATE 8.4% INJ 150 MEQ in DEXTROSE 5% IN WATE 1000ML INJ 850 ML IV SCH ×4 (14:44→22:40)
--- NOTE | 2017-04-11 14:54 | HHI.GIFU ---
Subjective Remarks On ventilator and sedated IV Protonix infusing Hemoglobin stable at 8.7 No diarrhea but patient is passing gas fever Objective Vitals I&O Vital Signs Date Time Temp Pulse Resp B/P (MAP) Pulse Ox O2 Delivery O2 Flow Rate FiO2 04/11/17 14:00 69 18 13:15 68 129/46 04/11/17 13:00 99 40 04/11/17 12:15 77 134/46 04/11/17 12:00 66 04/11/17 12:00 100.0 66 16 77/42 (54) 94 108/42 (64) 04/11/17 12:00 100 04/11/17 11:18 69 111/42 04/11/17 11:18 73 118/53 04/11/17 11:15 99 40 04/11/17 11:00 100.2 69 16 129/54 (79) 98 04/11/17 10:35 70 105/41 04/11/17 10:33 100.2 70 17 84/43 (57) 96 107/41 (63) 04/11/17 10:00 70 04/11/17 10:00 100.2 70 16 91/49 (63) 97 145/71 (95) 04/11/17 09:40 70 145/67 04/11/17 09:40 70 145/67 04/11/17 09:17 70 152/77 04/11/17 09:17 70 152/77 04/11/17 09:00 100.2 70 16 157/77 (103) 97 04/11/17 09:00 70 157/77 04/11/17 09:00 70 157/77 04/11/17 08:50 69 157/77 04/11/17 08:50 69 157/77 04/11/17 08:34 100 50 04/11/17 08:30 71 163/79 04/11/17 08:00 100 04/11/17 08:00 70 04/11/17 08:00 70 169/80 04/11/17 08:00 70 169/80 04/11/17 08:00 100.1 70 16 105/55 (72) 99 169/80 (109) 04/11/17 07:00 69 159/79 04/11/17 07:00 69 159/79 04/11/17 07:00 69 159/79 04/11/17 07:00 99.7 69 16 159/79 (105) 100 04/11/17 06:53 67 161/79 04/11/17 06:41 68 166/80 04/11/17 06:41 68 166/80 04/11/17 06:00 69 04/11/17 04:10 98 100 04/11/17 04:01 98.2 76 16 116/58 (77) 97 157/44 (81) 04/11/17 04:00 69 04/11/17 04:00 98.2 75 16 158/44 (82) 96 04/11/17 04:00 70 04/11/17 03:41 77 167/43 04/11/17 03:30 97.9 77 16 167/43 (84) 98 04/11/17 03:00 97.7 75 16 167/43 (84) 99 04/11/17 02:30 97.9 75 16 166/43 (84) 99 04/11/17 02:00 75 04/11/17 02:00 98.1 74 16 112/56 (74) 97 155/45 (81) 04/11/17 01:30 98.4 76 16 152/44 (80) 99 04/11/17 01:00 98.8 76 16 142/46 (78) 99 04/11/17 00:30 99.1 69 16 130/46 (74) 97 04/11/17 00:26 96 70 04/11/17 00:09 75 155/47 04/11/17 00:08 75 104/53 04/11/17 00:08 74 104/53 04/11/17 00:00 68 04/11/17 00:00 87 50 04/11/17 00:00 70 04/11/17 00:00 99.5 66 16 104/53 (70) 88 139/48 (78) 04/10/17 23:30 99.9 68 16 120/50 (73) 100 04/10/17 23:30 99.9 68 16 120/50 (73) 100 04/10/17 23:19 100 50 04/10/17 23:00 100.2 69 18 140/47 (78) 100 04/10/17 22:30 100.8 63 18 131/44 (73) 100 04/10/17 22:06 64 121/43 04/10/17 22:00 63 04/10/17 22:00 101.1 64 18 114/55 (74) 100 111/45 (67) 04/10/17 22:00 100 18 21:30 101.3 67 18 128/39 (68) 100 18 21:00 101.3 67 18 130/39 (69) 100 04/10/17 20:55 67 132/39 04/10/17 20:50 100 100 04/10/17 20:22 100 100 04/10/17 20:18 69 119/31 04/10/17 20:00 101.0 70 16 118/56 (76) 100 120/35 (63) 04/10/17 20:00 50 04/10/17 20:00 70 04/10/17 19:39 70 118/37 04/10/17 19:39 70 118/37 04/10/17 19:39 70 118/37 04/10/17 18:00 98.2 80 18 100 04/10/17 17:07 100 50 04/10/17 17:04 96.0 108 19 133/42 98 04/10/17 17:00 96.5 104 18 100 04/10/17 16:02 50 80/55 04/10/17 16:02 50 80/55 04/10/17 16:01 45 80/55 04/10/17 16:00 94.6 78 16 84 04/10/17 15:18 90.0 65 16 74/29 100 04/10/17 15:00 59 04/10/17 15:00 59 16 86/50 (62) 84 I/O 04/10/17 04/10/17 04/10/17 04/11/17 04/11/17 04/11/17 06:59 14:59 22:59 06:59 14:59 22:59 Intake Total 2455.5 ml 3645.1 ml 1752 ml 1380 ml Output Total 0 ml 123 ml Balance 2455.5 ml 3645.1 ml 1629 ml 1380 ml Intake IV Total 2455.5 ml 2885.1 ml 1752 ml 1380 ml Packed Cells 400 ml FFP 230 ml Blood Product IV Normal Saline Flush 130 ml Output Urine Total 0 ml 123 ml Stool Total 0 ml Laboratory Laboratory Tests Test 04/10/17 15:06 04/10/17 15:12 04/10/17 16:10 04/10/17 16:48 White Blood Count 4.5 Red Blood Count 2.76 Hemoglobin 7.8 Hematocrit 25.8 Mean Corpuscular Volume 93.4 Mean Corpuscular Hemoglobin 28.2 Mean Corpuscular Hemoglobin Concent 30.2 Red Cell Distribution Width 19.1 Platelet Count 108 Mean Platelet Volume 10.0 CBC Comment AUTO DIFF Differential Total Cells Counted 100 Neutrophils % (Manual) 56 Band Neutrophils % 25 Lymphocytes % 4 Monocytes % 1 Neutrophils # (Manual) 4.3 Metamyelocytes 5 Myelocytes 6 Promyelocytes 3 Differential Comment FINAL DIFF MANUAL Platelet Estimate LOW Platelet Morphology Comment ENLARGED Lily Cells 2+ Crenated Cell 1+ Prothrombin Time 16.4 Prothromb Time International Ratio 1.6 Blood Urea Nitrogen 51 Creatinine 2.95 Random Glucose 164 Total Protein 4.7 Albumin 1.4 Calcium Level 6.7 Alkaline Phosphatase 105 Aspartate Amino Transf (AST/SGOT) 31 Alanine Aminotransferase (ALT/SGPT) 16 Total Bilirubin 0.2 Sodium Level 143 Potassium Level 3.8 Chloride Level 120 Carbon Dioxide Level 9.7 Anion Gap 13 Estimat Glomerular Filtration Rate 21 Protein Corrected Calcium 7.9 Ammonia 89 Total Creatine Kinase 303 Thyroid Stimulating Hormone 3rd Gen 3.050 Random Cortisol 33.9 Blood Gas Puncture Site ART LINE Blood Gas Patient Temperature 98.6 Blood Gas HCO3 8 Blood Gas Base Excess -22.9 Blood Gas Oxygen Saturation 95 Arterial Blood pH 6.83 Arterial Blood Partial Pressure CO2 51 Arterial Blood Partial Pressure O2 403 Arterial Blood Oxygen Content 11.7 Arterial Blood Carboxyhemoglobin 0.0 Arterial Blood Methemoglobin 3.1 Blood Gas Hemoglobin 8.1 Oxygen Delivery Device VENTILATOR Blood Gas Ventilator Setting A/C 500/16/5PEEP Blood Gas Inspired Oxygen 100 Troponin I 0.03 Amylase Level 27 Lipase 76 Lactic Acid Level 1.0 Test 04/10/17 18:23 04/10/17 20:22 04/11/17 01:35 04/11/17 04:40 Potassium Level 3.4 3.2 Blood Gas Puncture Site ART LINE Blood Gas Patient Temperature 98.6 Blood Gas HCO3 12 Blood Gas Base Excess -18.6 Blood Gas Oxygen Saturation 95 Arterial Blood pH 6.93 Arterial Blood Partial Pressure CO2 58 Arterial Blood Partial Pressure O2 342 Arterial Blood Oxygen Content 12.4 Arterial Blood Carboxyhemoglobin 0.0 Arterial Blood Methemoglobin 2.9 Blood Gas Hemoglobin 8.7 Oxygen Delivery Device VENTILATOR Blood Gas Ventilator Setting AC18/500/5PEEP Blood Gas Inspired Oxygen 100 Hemoglobin 8.3 8.7 Hematocrit 26.6 27.5 Blood Urea Nitrogen 48 Creatinine 3.03 Random Glucose 278 Total Protein 4.8 Calcium Level 6.1 Phosphorus Level 6.5 Sodium Level 138 Chloride Level 109 Carbon Dioxide Level 16.3 Anion Gap 13 Estimat Glomerular Filtration Rate 20 Protein Corrected Calcium 7.2 Troponin I 0.31 Free Thyroxine 0.70 Free Triiodothyronine (T3) pg/dL LESS THAN 0.50 White Blood Count 4.6 Red Blood Count 3.07 Mean Corpuscular Volume 89.6 Mean Corpuscular Hemoglobin 28.3 Mean Corpuscular Hemoglobin Concent 31.6 Red Cell Distribution Width 18.4 Platelet Count 95 Mean Platelet Volume 10.4 CBC Comment AUTO DIFF Differential Total Cells Counted 100 Neutrophils % (Manual) 43 Band Neutrophils % 25 Lymphocytes % 6 Monocytes % 4 Neutrophils # (Manual) 4.1 Metamyelocytes 22 Nucleated Red Blood Cells 5 Differential Comment FINAL DIFF MANUAL Platelet Estimate LOW Platelet Morphology Comment NORMAL Basophilic Stippling MOD Acanthocytes 2+ Prothrombin Time 16.4 Prothromb Time International Ratio 1.6 Fibrinogen 261 Test 04/11/17 05:36 Blood Gas Puncture Site ART LINE Blood Gas Patient Temperature 98.6 Blood Gas HCO3 15 Blood Gas Base Excess -15.1 Blood Gas Oxygen Saturation 95 Arterial Blood pH 6.98 Arterial Blood Partial Pressure CO2 64 Arterial Blood Partial Pressure O2 300 Arterial Blood Oxygen Content 13.3 Arterial Blood Carboxyhemoglobin 0.0 Arterial Blood Methemoglobin 2.7 Blood Gas Hemoglobin 9.4 Oxygen Delivery Device VENTILATOR Blood Gas Ventilator Setting AC16/6005PEEP Blood Gas Inspired Oxygen 100 Date/Time Source Procedure Growth Status 04/10/17 10:00 Blood Peripheral Aerobic Blood Culture - Preliminary Gram Positive Cocci Resulted 04/10/17 10:00 Anaerobic Blood Culture - Preliminary Gram Positive Cocci Resulted 04/10/17 13:00 Nasal Washing Influenza Types A,B Antigen (CHRISTO) - Final NEGATIVE FOR FLU A AND B ANTIGEN.... Complete 04/10/17 11:30 Urine Catheterized Urine Legionella Antigen - Final PRESUMPTIVE NEGATIVE FOR LEGIONELLA P... Complete 04/10/17 11:30 Urine Catheterized Urine Streptococcus pneumoniae Antigen (M - Final PRESUMPTIVE NEGATIVE FOR STREPTOCOCCU... Complete Imaging Last Impressions Head CT 04/10/17 0000 Signed Impressions: Service Date/Time: Monday, April 10, 2017 09:20 - CONCLUSION: Unremarkable study. Eduard Pillai MD Chest X-Ray 04/10/17 0000 Signed Impressions: Service Date/Time: Monday, April 10, 2017 14:54 - CONCLUSION: 1. Right internal jugular central line in good position with its tip in the superior vena cava. 2. Endotracheal tube in good position 4 cm above the sandee. 3. No pneumothorax noted. 4. Interval slight worsening pulmonary infiltrates involving the right lung and left lung base. Storm Weiner MD Abdomen/Pelvis CT 04/10/17 0000 Signed Impressions: Service Date/Time: Monday, April 10, 2017 09:20 - CONCLUSION: 1. The right lung base consolidation not present previously characteristic of pneumonia possibility of aspiration should be entertained in the appropriate clinical setting. 2. Bladder stone. 3. The previously seen right perinephric well- defined hemorrhage has not significantly changed and the patient has undergone embolization since that time. 4. The fluid collection which is well defined within the psoas muscle has increased in size slightly may represent retroperitoneal hemorrhages evolving and could be followed. 5. Retroperitoneal lymph nodes are similar not changed since 11/2016. Eduard Pillai MD Physical Exam HEENT: Pupils round and reactive to light; normocephalic; ventilator NECK: Neck is supple, CHEST: Chest is diminished sounds no active rhonchi CARDIAC: Regular rate and rhythm 70s ABDOMEN: NG tube to low intermittent suction, Soft, taut, nontender; no hepatosplenomegaly; bowel sounds are present in all four quadrants. EXTREMITIES: No clubbing, cyanosis, or edema. SKIN: Pale FUND ACCOUNTANT: Sedated, weakened Assessment and Plan Plan ASSESSMENT - anemia, heme pos stool - hgb 8.9 on admission, dropped to 7.8., But now has returned back up to 8.7 on 04/11/17 CT showed poss PNA, no change right perinephric hemorrhage since embolization , poss retroperitoneal hemorrhage. was on coumadin but has not had in few days. EGD 01/29/17 found peptic duodenitis; colonoscopy 01/29/17 showed innumerable med sessile polyps ascending colon, 2 x sessile polyps transverse colon, rec to rpt cscope in 2m. INR 1.6 today, was on coumadin but has not had in past few days. d/w CCM, not stable for procedures at this time, cannot place NGT or OGT to assess for UGIB - retroperitoneal hemorrhage per CT as above PLAN - EGD +/- colonoscopy, when pt more stable, possible end of week or even into next week - Awaiting CT of abdomen scheduled for today - monitor labs - transfuse as needed - hold coumadin - Monitor for any bleeding or diarrhea - Plan a care will be based on patient's response to treatment regimen THis pt seen by myself and Dr Godoy and this note is written on his behalf La Nicole Apr 11, 2017 14:54
--- NOTE | 2017-04-11 16:32 | ECHRPT ---
Indication: SEPSIS CONCLUSIONS The left ventricular systolic function is normal with an estimated ejection fraction in the range of 60-65%. normal left ventricular size. Wall thickness is normal. No regional wall motion abnormalities are present. Trace aortic valve regurgitation. There is mild tricuspid valve regurgitation. The estimated pulmonary arterial pressure is 54.6 mmHg. There is moderate pulmonary hypertension present. Moderate pulmonary valve regurgitation. BP: / HR: Rhythm: Sinus MEASUREMENTS (Male / Female) Normal Values Technical Quality:Good 2D ECHO LV Diastolic Diameter PLAX 4.5 cm 4.2 - 5.9 / 3.9 - 5.3 cm LV Systolic Diameter PLAX 2.8 cm IVS Diastolic Thickness 1.1 cm 0.6 - 1.0 / 0.6 - 0.9 cm LVPW Diastolic Thickness 1.1 cm 0.6 - 1.0 / 0.6 - 0.9 cm LV Relative Wall Thickness 0.5 RV Internal Dim ED PLAX 3.9 cm LVOT Diameter 2.1 cm M-MODE Aortic Root Diameter MM 3.4 cm AV Cusp Separation MM 1.9 cm DOPPLER AV Peak Velocity 137.0 cm/s AV Peak Gradient 7.5 mmHg AI Peak Velocity 162.0 cm/s AI Peak Gradient 10.5 mmHg AI Pressure Half Time 1111.0 ms LVOT Peak Velocity 69.6 cm/s LVOT Peak Gradient 1.9 mmHg AV Area Cont Eq pk 1.8 cm LV E' Lateral Velocity 8.7 cm/s LV E' Septal Velocity 5.3 cm/s TR Peak Velocity 334.0 cm/s TR Peak Gradient 44.6 mmHg Right Atrial Pressure 10.0 mmHg Pulmonary Artery Systolic Pressu 54.6 mmHg Right Ventricular Systolic Press 54.6 mmHg PV Peak Velocity 105.0 cm/s PV Peak Gradient 4.4 mmHg FINDINGS LEFT VENTRICLE The left ventricular systolic function is normal with an estimated ejection fraction in the range of 60- 65%.normal left ventricular size. Wall thickness is normal. No regional wall motion abnormalities are present. RIGHT VENTRICLE Normal right ventricular size and systolic function. LEFT ATRIUM The left atrial size is normal. RIGHT ATRIUM The right atrial size is normal. ATRIAL SEPTUM Normal atrial septal thickness without atrial level shunting by limited color doppler interrogation. AORTA The aortic root and proximal ascending aorta are normal in size on limited imaging. MITRAL VALVE Structurally normal mitral valve. No mitral valve stenosis or regurgitation. AORTIC VALVE Trileaflet aortic valve. Trace aortic valve regurgitation. TRICUSPID VALVE Structurally normal tricuspid valve. There is mild tricuspid valve regurgitation. The estimated pulmonary arterial pressure is 54.6 mmHg. There is moderate pulmonary hypertension present. PULMONARY VALVE Moderate pulmonary valve regurgitation. VESSELS The inferior vena cava is normal in size. PERICARDIUM No pericardial effusion. Alexi Michelle MD (Electronically Signed) Final Date:11 April 2017 16:32
[2017-04-11 16:38] LABS: HEMATOCRIT 26.3 % (39.0-51.0); HEMOGLOBIN 8.6 GM/DL (13.0-17.0)
--- NOTE | 2017-04-11 16:53 | HHI.CCPN ---
Subjective Remarks/Hospital Course This is a 71-year-old male that presented to the ED for altered mental status. The patient's past medical history is significant for A. fib and the patient is on on chronic anticoagulation therapy with coumadin. The patient's past medical history also includes AAA, anxiety, CAD, CHF, COPD, CKD, DM, anemia presents to the ED . Per EMS report, the patient initially responded to the call for SOB but upon arrival, pt was found to be hypotensive. The family reported altered mental status, upon presentation to the ED the patient is AAOx2 and states that his right side hurts. The patient has not eaten or taken any meds for over 48 hours and then the family reportedly gave all his meds last night at 2100 .He was admitted 02/28-03/20/17 for GI bleed and had panendoscopy that showed no active bleeding but has peptic duodenitis, and underwent IR embolization for perinephric hemorrhage at that time. Pt also had perinephric hematoma s/p IR embolization and had HCAP. Pt was discharge from rehab about 1 week ago inability to ambulate. He does complain of black stool when asked. Laboratory and imaging studies were performed in the ED which showed 12% bandemia, patient previously hospitalized at recent discharge 2016 with right lower lobe pneumonia, and positive Hemoccult 02/2017, as well as this admission. 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 The patient's previous hospitalization revealed a spine obtained hemorrhage of the right mid pole kidney 6.5 cm the head increased to 8.[address] of the abdomen and pelvis today reveal no change in size of 8.5 cm in the right midpole of the kidney however there is a fluid collection well-defined in the psoas muscle area. Patient reportedly was hypotensive and received in the ED 2 L of normal saline, as well as Zosyn and vancomycin. Upon entering the patient's room in the ED the patient was noted to have blood pressures mid 90s/50s with a heart rate of 61 O2 saturation on 2 L was approximately 95%. The patient was noted to be lethargic, but easily arousable. Flow was noted to be 61 and the patient is receiving D50 one amp, the patient was noted to have significantly elevated creatinine with the BUN of 52 and currently receiving bolus of IV fluids. Subjective: 04/11: Afebrile .on arrival to the ICU the patient was emergently intubated , secondary to unresponsiveness, and required multiple pressors continues only Levophed,phenylephrine and vasopressin infusions. Patient continues on sodium bicarbonate infusion, with severe metabolic acidosis. Hemoglobin stabilize after 1 unit of PRBC's. Persistent bandemia, cultures revealed gram-positive cocci. ID consulted Objective Vital Signs Date Time Temp Pulse Resp B/P (MAP) Pulse Ox O2 Delivery O2 Flow Rate FiO2 04/11/17 16:00 62 04/11/17 15:32 96 40 04/11/17 13:15 129/46 04/11/17 12:00 100.0 16 04/10/17 13:15 5.00 04/10/17 12:15 Nasal Cannula Intake and Output 04/11/17 04/11/17 04/12/17 08:00 16:00 00:00 Intake Total 1752 ml 1850 ml Output Total 123 ml Balance 1629 ml 1850 ml Result Diagram: 04/11/17 0440 04/11/17 0135 Other Results Microbiology Date/Time Source Procedure Growth Status 04/10/17 13:00 Nasal Washing Influenza Types A,B Antigen (CHRISTO) - Final NEGATIVE FOR FLU A AND B ANTIGEN.... Complete 04/10/17 11:30 Urine Catheterized Urine Legionella Antigen - Final PRESUMPTIVE NEGATIVE FOR LEGIONELLA P... Complete 04/10/17 11:30 Urine Catheterized Urine Streptococcus pneumoniae Antigen (M - Final PRESUMPTIVE NEGATIVE FOR STREPTOCOCCU... Complete Laboratory Tests Test 04/10/17 20:22 04/11/17 05:36 Blood Gas Puncture Site ART LINE ART LINE Blood Gas Patient Temperature 98.6 98.6 Blood Gas HCO3 12 mmol/L (22-26) 15 mmol/L (22-26) Blood Gas Base Excess -18.6 mmol/L (-2-2) -15.1 mmol/L (-2-2) Blood Gas Oxygen Saturation 95 % (90-100) 95 % (90-100) Arterial Blood pH 6.93 (7.380-7.420) 6.98 (7.380-7.420) Arterial Blood Partial Pressure CO2 58 mmHg (38-42) 64 mmHg (38-42) Arterial Blood Partial Pressure O2 342 mmHg (61-120) 300 mmHg (61-120) Arterial Blood Oxygen Content 12.4 Vol % (12.0-20.0) 13.3 Vol % (12.0-20.0) Arterial Blood Carboxyhemoglobin 0.0 % (0-4) 0.0 % (0-4) Arterial Blood Methemoglobin 2.9 % (0-2) 2.7 % (0-2) Blood Gas Hemoglobin 8.7 G/DL (12.0-16.0) 9.4 G/DL (12.0-16.0) Oxygen Delivery Device VENTILATOR VENTILATOR Blood Gas Ventilator Setting AC18/500/5PEEP AC16/6005PEEP Blood Gas Inspired Oxygen 100 % 100 % Imaging Last Impressions Head CT 04/10/17 0000 Signed Impressions: Service Date/Time: Monday, April 10, 2017 09:20 - CONCLUSION: Unremarkable study. Eduard Pillai MD Chest X-Ray 04/10/17 0000 Signed Impressions: Service Date/Time: Monday, April 10, 2017 09:02 - CONCLUSION: 1. Diffuse infiltrates involving the right lung consistent with probable pneumonia. 2. Cardiomegaly. Storm Weiner MD Abdomen/Pelvis CT 04/10/17 0000 Signed Impressions: Service Date/Time: Monday, April 10, 2017 09:20 - CONCLUSION: 1. The right lung base consolidation not present previously characteristic of pneumonia possibility of aspiration should be entertained in the appropriate clinical setting. 2. Bladder stone. 3. The previously seen right perinephric well- defined hemorrhage has not significantly changed and the patient has undergone embolization since that time. 4. The fluid collection which is well defined within the psoas muscle has increased in size slightly may represent retroperitoneal hemorrhages evolving and could be followed. 5. Retroperitoneal lymph nodes are similar not changed since 11/2016. Eduard Pillai MD Objective Remarks GENERAL: Critically ill-appearing malnourished, male intubated and sedated SKIN: Warm and dry. HEAD: Atraumatic. Normocephalic. EYES: Pupils equal and round. No scleral icterus. No injection or drainage. ENT: No nasal bleeding or discharge. Mucous membranes pink and dry. NECK: Trachea midline. No JVD. CARDIOVASCULAR: Normal rate, regular rhythm. RESPIRATORY: No accessory muscle use. Clear to auscultation. Breath sounds equal bilaterally. GASTROINTESTINAL: Abdomen soft, non-tender, nondistended. No guarding. MUSCULOSKELETAL: Extremities without clubbing, cyanosis, or edema. No obvious deformities. NEUROLOGICAL: Intubated and sedated RASS -2. Alert and oriented 2 No gross focal/sensory deficits. Follows commands in all 4 extremities. Urinary Catheter: Yes White insert reason: Measure Accurate Output Date of Insertion: Apr 10, 2017 Vascular Central Line Catheter: Yes Date of Insertion: Apr 10, 2017 Side: Right Location: Internal, Jugular A/P Assessment and Plan This is a 71-year-old debilitated critically ill-appearing male. The patient is S/P recent hospital discharge for spontaneous hemorrhage of the right mid pole of the kidney, right lower lobe pneumonia, GI bleed with positive Hemoccult on 03/20/17, now presenting for repeat admission with sepsis, bandemia, most likely secondary to right lower lobe pneumonia with possible evolving retroperitoneal hemorrhage with supratherapeutic INR 1.6 secondary to chronic anticoagulation for a history of A. fib. Plan by systems: Neurologic: Metabolic encephalopathy Neurochecks per ICU protocol ammonia level- 89-begin lactulose Fentanyl infusion for sedation for ventilator synchrony Tylenol 650 mg every 6 hours when necessary for fever and/or pain Respiratory: Acute hypoxemic respiratory failure Probable HCAP 04/10/17-emergently intubated a 8.0 ETT 24 cm at the [facility] Du nebs every 4 hours when necessary for wheezing Ventilator bundle Sputum culture follow-up results Recently hospitalized with right lower lobe pneumonia on vancomycin and Zosyn and oxacillin which was discontinued 03/18/17 Cardiovascular: History of A. fib on chronic anticoagulation Coronary artery disease status post coronary stents 2, an aortic stent x2 History of CHF History of hypertension Cardiomegaly Septic shock versus hemorrhagic shock Patient continues on norepinephrine, phenylephrine, and vasopressin to maintain MAP > 65 Hold Coumadin in the setting of active bleeding -reportedly family states patient stopped Coumadin on 02/28/17. INR on admission 1.6 Initial troponin 0.03->0.31 04/10 EKG sinus bradycardia with first-degree AV block septal WA Vitamin K 10 mg 1 dose IV Transfuse FFP 1 unit Continue pravastatin 40 mg/day Repeat INR post transfusion-1.6 Last echo 02/03/16 EF 60-65% 04/11 ECHO- EF 60-65% No RWMA, Mod Pulm HTN- will consider Milrinone Pt received antihypertensive medications on 04/09/17 at 2100 Renal: BPH Hold Flomax in the setting of hypotension Insert White -- Strict I/Os FEN/GI: Acute kidney injury 2/2 hypotension Chronic kidney disease stage III Perinephric hemorrhage 8.5 cm Possible retroperitoneal hemorrhage Left renal cyst Urolithiasis Elevated BUN possibly secondary to active bleeding Metabolic acidosis Electrolyte derangement Severe protein calorie malnutrition GI bleed Elevated BUN secondary to most likely active bleeding and dehydration Insert NG tube low intermittent wall suction Patient Hemoccult positive this admission, Hemoccult positive last admission status post panendoscopy with benign findings GI consulted-appreciate recommendations Nephrology consulted Monitor BMP Zofran for nausea Albumin 1.5 1/3 amylase, lipase WNL Heme/ID: HCAP right lower lobe Bandemia Acute blood loss anemia Thrombocytopenia Patient received Zosyn and vancomycin in the ED Initial lactic acid 1.3, monitor serial levels, bands 12% Continue to monitor CBC Consulted ID-appreciate recommendations Blood cultures- gram positive cocci Follow-up sputum cultures Obtain legionella and pneumococcal antigen 1/2- influenza antigen-negative Transfuse 1 unit of packed red blood cells Obtain every 6 hours H&H's, obtain fibrinogen level, trend INR currently 1.6 1/ Discussed with Dr. Sanabria , invasive radiology possible retroperitoneal hemorrhage, images reviewed states possibly an abscess versus retroperitoneal hemorrhage. Continue monitoring closely hemoglobin and hematocrit, declines plan for possible emergent intervention Endocrine: Diabetes mellitus Glucose monitoring per ICU protocol, low dose regimen TSH WNL 3.050 MSK: Stage II gluteal/ sacral ulcers Obtain wound care consult-follow up recommendations -- SSI Prophylaxis: GI Prophylaxis Protonix infusion DVT Prophylaxis -- SCDs Hold Coumadin in the setting of possible bleed Lines: Right IJ central line, left radial arterial line (04/10/17) Dispo: my billing statement This patient remains critically ill with one or more organ systems which are or may become a threat to life. I have spent in excess of 42 minutes discontinuously in the care and management of this patient. This time is exclusive of procedures, and includes, but is not limited to, evaluation of the patient, review of the medical record, discussions with family, consultants, nursing staff, or respiratory therapy, and documentation in the medical record. D/W RUBBER CURER at bedside (Chana), and patient's family at bedside all questions answered Physician Lily Casey MD Apr 11, 2017 16:52
[2017-04-11] MEDS ORDERED: ARTIFICIAL TEARS OPTH SOLN 15 ML BTL EACH EYE PRN (18:00)
[2017-04-12] VITALS (35 sets, daily range): BP systolic 70–173; BP diastolic 30–70; PULSE 51–151; RESP 16–18; TEMP 99.5; O2SAT 94–100
[2017-04-12] MEDS: VASOPRESSIN 40 U/D5W 100 ML Titrate, Post Cardiac Surgery IV PRN ×2 (01:53)
[2017-04-12] MEDS: fentaNYL DRIP 250 ML IV PRN (01:53)
[2017-04-12] MEDS: PANTOPRAZOLE INJ 80 MG in SODIUM CHLORIDE 0.9% INJ 100 ML IV SCH ×2 (02:20→08:19)
[2017-04-12] MEDS ORDERED: PHENYLEPHRINE INJ 160 MG in DEXTROSE 5% IN WATE 500 ML INJ 484 ML IV PRN ×2 (03:15)
[2017-04-12] MEDS: NOREPINEPHRINE 4 MG/D5W 250 ML IV PRN ×3 (03:29→10:31)
[2017-04-12] MEDS: PIPERACIL-TAZO 3.375 GM PREMIX 50 ML IV SCH ×4 (03:55→21:12)
[2017-04-12 03:57] LABS: HEMATOCRIT 26.1 % (39.0-51.0); HEMOGLOBIN 8.6 GM/DL (13.0-17.0); MEAN CELL VOLUME 86.2 FL (80.0-100.0); MEAN CORPUSCULAR HEMOGLOBIN 28.5 PG (27.0-34.0); MEAN PLATELET VOLUME 9.5 FL (7.0-11.0); PLATELET COUNT 47 TH/MM3 (150-450); RED BLOOD COUNT 3.03 MIL/MM3 (4.50-5.90); RED CELL DISTRIBUTION WIDTH 17.9 % (11.6-17.2); WHITE BLOOD COUNT 4.5 TH/MM3 (4.0-11.0)
[2017-04-12] MEDS: CHLORHEXIDINE GLUCONATE 2 % 1 PACK (2 CLOTHS) TOP SCH (04:00)
--- NOTE | 2017-04-12 04:17 | RADRPT ---
EXAM DATE/TIME: 04/12/2017 03:08 [facility] COMPARISON: CHEST SINGLE AP, April 10, 2017, 14:54. INDICATIONS : Shortness of breath, possible pulmonary disease. MEDICAL HISTORY : None. SURGICAL HISTORY : None. ENCOUNTER: Subsequent ACUITY: 4 - 6 days PAIN SCORE: Non-responsive. LOCATION: Left chest FINDINGS: 2 portable frontal views of the chest shows endotracheal tube with the tip 5 cm proximal to the carroll a. Nasogastric tube tip in the region of the fundus of the stomach. Right-sided central line. No pneu mothorax. Bilateral pleural effusions and bilateral pulmonary infiltrates affecting the right greater degree than the left. These have progressed slightly from the prior study. Heart is normal in size. Thoracic aortic stent graft. CONCLUSION: Slight progression in the bilateral pleural effusions and bilateral pulmonary infiltrates. Blaze Del Valle Jr., MD on April 12, 2017 at 4:14 Board Certified Radiologist. This report was verified electronically.
[2017-04-12 04:34] LABS: ALBUMIN 1.1 GM/DL (3.4-5.0); BICARBONATE 19.1 MEQ/L (21.0-32.0); CALCIUM 5.7 MG/DL (8.5-10.1); CREATININE 3.3 MG/DL (0.60-1.30); MAGNESIUM 1.2 MG/DL (1.5-2.5); PHOSPHORUS 5.4 MG/DL (2.5-4.9); TOTAL BILIRUBIN ADULT 0.5 MG/DL (0.2-1.0); TOTAL PROTEIN 4.2 GM/DL (6.4-8.2)
[2017-04-12] MEDS: HYDROCORTISONE SOD SUCCINATE 100 MG VIAL IV PUSH SCH ×3 (05:33→21:16)
[2017-04-12 07:17] LABS: BANDS 26 % (0-6); CORRECTED NUCLEATED RBC 5 /100 WBC (0-0); LYMPHOCYTES 8 % (9-44); METAMYELOCYTES 1 % (0-1); MONOCYTES 6 % (0-8); NEUTROPHIL # MANUAL DIFF 3.9 TH/MM3 (1.8-7.7); NUCLEATED RED BLOOD CELL 5 (0-0); POLYS (SEG NEUTROPHILS) 59 % (16-70)
[2017-04-12 07:18] LABS: BURR CELLS 1+ (NORMAL)
[2017-04-12 07:19] LABS: ACANTHOCYTES 1+ (NORMAL)
[2017-04-12] MEDS: SODIUM BICARBONATE 8.4% INJ 150 MEQ in DEXTROSE 5% IN WATE 1000ML INJ 850 ML IV SCH ×6 (08:19→21:00)
[2017-04-12] MEDS: DOCUSATE SODIUM 50 MG/SENNA 8.6 MG TAB PO SCH ×2 (08:20→19:43)
[2017-04-12] MEDS: FAMOTIDINE 20 MG TAB PO SCH ×2 (08:20→19:43)
[2017-04-12] MEDS: SODIUM CHLORIDE 0.9% FLUSH 10 ML FLUSH IV FLUSH SCH ×2 (08:20→21:12)
[2017-04-12] MEDS ORDERED: CALCIUM GLUCONATE INJ 2 GM in SODIUM CHLORIDE 0.9% INJ 100 ML IV ONE ×2 (09:00→17:00)
[2017-04-12] MEDS: MAGNESIUM SULFATE 1 GM PREMIX 100 ML IV SCH ×2 (09:00→10:00)
[2017-04-12] MEDS ORDERED: Vancomycin Consult Pharmacy 1 EA OTHER SCH (09:00)
[2017-04-12] MEDS ORDERED: CALCIUM GLUCONATE 10% 1 GM/10 ML VIAL ONE ×2 (09:09→09:44)
[2017-04-12] MEDS ORDERED: AMIODARONE INJ 450 MG in D5W (EXCEL BAG) INJ 241 ML IV PRN (09:45)
[2017-04-12] MEDS ORDERED: VANCOMYCIN INJ 1,500 MG in SODIUM CHLORID 0.9% 500 ML INJ 500 ML IV ONE (10:00)
--- NOTE | 2017-04-12 10:26 | HHI.CCPN ---
Subjective Remarks/Hospital Course This is a 71-year-old male that presented to the ED for altered mental status. The patient's past medical history is significant for A. fib and the patient is on on chronic anticoagulation therapy with coumadin. The patient's past medical history also includes AAA, anxiety, CAD, CHF, COPD, CKD, DM, anemia presents to the ED . Per EMS report, the patient initially responded to the call for SOB but upon arrival, pt was found to be hypotensive. The family reported altered mental status, upon presentation to the ED the patient is AAOx2 and states that his right side hurts. The patient has not eaten or taken any meds for over 48 hours and then the family reportedly gave all his meds last night at 2100 .He was admitted 02/28-03/20/17 for GI bleed and had panendoscopy that showed no active bleeding but has peptic duodenitis, and underwent IR embolization for perinephric hemorrhage at that time. Pt also had perinephric hematoma s/p IR embolization and had HCAP. Pt was discharge from rehab about 1 week ago inability to ambulate. He does complain of black stool when asked. Laboratory and imaging studies were performed in the ED which showed 12% bandemia, patient previously hospitalized at recent discharge 2016 with right lower lobe pneumonia, and positive Hemoccult 02/2017, as well as this admission. 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 The patient's previous hospitalization revealed a spine obtained hemorrhage of the right mid pole kidney 6.5 cm the head increased to 8.[address] of the abdomen and pelvis today reveal no change in size of 8.5 cm in the right midpole of the kidney however there is a fluid collection well-defined in the psoas muscle area. Patient reportedly was hypotensive and received in the ED 2 L of normal saline, as well as Zosyn and vancomycin. Upon entering the patient's room in the ED the patient was noted to have blood pressures mid 90s/50s with a heart rate of 61 O2 saturation on 2 L was approximately 95%. The patient was noted to be lethargic, but easily arousable. Flow was noted to be 61 and the patient is receiving D50 one amp, the patient was noted to have significantly elevated creatinine with the BUN of 52 and currently receiving bolus of IV fluids. Subjective: 04/11: Afebrile .on arrival to the ICU the patient was emergently intubated , secondary to unresponsiveness, and required multiple pressors continues only Levophed,phenylephrine and vasopressin infusions. Patient continues on sodium bicarbonate infusion, with severe metabolic acidosis. Hemoglobin stabilize after 1 unit of PRBC's. Persistent bandemia, cultures revealed gram-positive cocci. ID consulted. 04/12: Afebrile. Last evening, the patient began to have episodes of sinus bradycardia requiring increasing doses of norepinephrine throughout the night currently at 20 mcgs, unable to be transported for CT of the abdomen and pelvis. The patient continues on multiple pressors at this time with continued metabolic acidosis. Microbiology results revealed urine gram-negative rods and gram-positive cocci bacteremia patient on broad-spectrum antibiotics ID has been consulted and awaiting recommendations. Patient's renal and hepatic function continues to decline. Ultrasound of abdomen ordered this a.m., 2/2 hemodynamic instability patient unable to have repeat CT scan of abdomen and pelvis last evening. Suitable electrolyte derangements early this a.m. currently being repleted. The patient went into A. fib RVR with a heart rate of 150, was bolused with amiodarone and currently on amiodarone infusion. Objective Vital Signs Date Time Temp Pulse Resp B/P (MAP) Pulse Ox O2 Delivery O2 Flow Rate FiO2 04/12/17 08:10 100 40 04/12/17 06:52 78 129/45 04/12/17 04:00 97.3 17 04/10/17 13:15 5.00 04/10/17 12:15 Nasal Cannula Intake and Output 04/12/17 04/12/17 04/12/17 07:59 15:59 23:59 Intake Total 2099.3 ml Output Total 240 ml Balance 1859.3 ml Result Diagram: 04/12/17 0335 04/12/17 0335 Other Results Microbiology Date/Time Source Procedure Growth Status 04/10/17 13:00 Nasal Washing Influenza Types A,B Antigen (CHRISTO) - Final NEGATIVE FOR FLU A AND B ANTIGEN.... Complete 04/10/17 11:30 Urine Catheterized Urine Legionella Antigen - Final PRESUMPTIVE NEGATIVE FOR LEGIONELLA P... Complete 04/10/17 11:30 Urine Catheterized Urine Streptococcus pneumoniae Antigen (M - Final PRESUMPTIVE NEGATIVE FOR STREPTOCOCCU... Complete Laboratory Tests Test 04/11/17 16:25 04/12/17 03:00 04/12/17 05:29 Blood Gas Puncture Site ART LINE ART LINE ART LINE Blood Gas Patient Temperature 98.6 98.6 98.6 Blood Gas HCO3 16 mmol/L (22-26) 16 mmol/L (22-26) 16 mmol/L (22-26) Blood Gas Base Excess -12.0 mmol/L (-2-2) -10.8 mmol/L (-2-2) -10.3 mmol/L (-2-2) Blood Gas Oxygen Saturation 93 % (90-100) 93 % (90-100) 94 % (90-100) Arterial Blood pH 7.09 (7.380-7.420) 7.19 (7.380-7.420) 7.20 (7.380-7.420) Arterial Blood Partial Pressure CO2 56 mmHg (38-42) 44 mmHg (38-42) 44 mmHg (38-42) Arterial Blood Partial Pressure O2 92 mmHg (61-120) 91 mmHg (61-120) 118 mmHg (61-120) Arterial Blood Oxygen Content 11.0 Vol % (12.0-20.0) 10.4 Vol % (12.0-20.0) 10.7 Vol % (12.0-20.0) Arterial Blood Carboxyhemoglobin 0.1 % (0-4) 0.5 % (0-4) 0.4 % (0-4) Arterial Blood Methemoglobin 2.9 % (0-2) 2.6 % (0-2) 2.9 % (0-2) Blood Gas Hemoglobin 8.3 G/DL (12.0-16.0) 7.8 G/DL (12.0-16.0) 8.0 G/DL (12.0-16.0) Oxygen Delivery Device VENTILATOR VENTILATOR VENTILATOR Blood Gas Ventilator Setting 600/16/5PEEP VOLUME AC VOLUME AC Blood Gas Inspired Oxygen 40 % 40 % 40 % Imaging Last Impressions Head CT 04/10/17 0000 Signed Impressions: Service Date/Time: Monday, April 10, 2017 09:20 - CONCLUSION: Unremarkable study. Eduard Pillai MD Chest X-Ray 04/10/17 0000 Signed Impressions: Service Date/Time: Monday, April 10, 2017 09:02 - CONCLUSION: 1. Diffuse infiltrates involving the right lung consistent with probable pneumonia. 2. Cardiomegaly. Storm Weiner MD Abdomen/Pelvis CT 04/10/17 0000 Signed Impressions: Service Date/Time: Monday, April 10, 2017 09:20 - CONCLUSION: 1. The right lung base consolidation not present previously characteristic of pneumonia possibility of aspiration should be entertained in the appropriate clinical setting. 2. Bladder stone. 3. The previously seen right perinephric well- defined hemorrhage has not significantly changed and the patient has undergone embolization since that time. 4. The fluid collection which is well defined within the psoas muscle has increased in size slightly may represent retroperitoneal hemorrhages evolving and could be followed. 5. Retroperitoneal lymph nodes are similar not changed since 11/2016. Eduard Pillai MD Objective Remarks GENERAL: Critically ill-appearing malnourished, male intubated and sedated SKIN: Warm and dry. HEAD: Atraumatic. Normocephalic. EYES: Pupils equal and round. No scleral icterus. No injection or drainage. ENT: No nasal bleeding or discharge. Mucous membranes pink and dry. NECK: Trachea midline. No JVD. CARDIOVASCULAR: Normal rate, regular rhythm. RESPIRATORY: No accessory muscle use. Clear to auscultation. Breath sounds equal bilaterally. Nasal cannula at 2 L GASTROINTESTINAL: Abdomen soft, non-tender, nondistended. No guarding. MUSCULOSKELETAL: Extremities without clubbing, cyanosis, or edema. No obvious deformities. NEUROLOGICAL: Intubated and sedated RASS -2. Alert and oriented 2 No gross focal/sensory deficits. Follows commands in all 4 extremities. Date of Insertion: Apr 10, 2017 Date of Insertion: Apr 10, 2017 Side: Right Location: Internal, Jugular A/P Assessment and Plan This is a 71-year-old debilitated critically ill-appearing male in septic shock with multisystem organ failure. Prognosis is guarded at this time. Plan by systems: Neurologic: Metabolic encephalopathy Neurochecks per ICU protocol ammonia level- 89-begin lactulose Fentanyl infusion for sedation for ventilator synchrony Tylenol 650 mg every 6 hours when necessary for fever and/or pain Respiratory: Acute hypoxemic respiratory failure Probable HCAP 04/10/17-emergently intubated a 8.0 ETT 24 cm at the lip Duo nebs every 4 hours when necessary for wheezing Ventilator bundle Sputum culture follow-up results Recently hospitalized with right lower lobe pneumonia on vancomycin and Zosyn and oxacillin which was discontinued 03/18/17 Cardiovascular: History of Shawn kaye on chronic anticoagulation Coronary artery disease status post coronary stents 2, an aortic stent x2 History of CHF History of hypertension Cardiomegaly Septic shock versus hemorrhagic shock A. fib RVR Patient continues on norepinephrine, phenylephrine, and vasopressin to maintain MAP > 65 Hold Coumadin in the setting of active bleeding -reportedly [facility] patient stopped Coumadin on 02/28/17. INR on admission 1.6 Initial troponin 0.03->0.31 1/ EKG sinus bradycardia with first-degree AV block septal GA Vitamin K 10 mg 1 dose IV Transfuse FFP 1 unit Continue pravastatin 40 mg/day Repeat INR post transfusion-1.6 Last echo 02/03/16 EF 60-65% / ECHO- EF 60-65% No RWMA, Mod Pulm HTN- will consider Milrinone / amiodarone bolus with 1:1 conversion and amiodarone infusion initiated Renal: BPH Hold Flomax in the setting of hypotension Insert White -- Strict I/Os FEN/GI: Acute kidney injury 2/2 hypotension Chronic kidney disease stage III Perinephric hemorrhage 8.5 cm Possible retroperitoneal hemorrhage Left renal cyst Urolithiasis Elevated BUN possibly secondary to active bleeding Metabolic acidosis Electrolyte derangement Severe protein calorie malnutrition GI bleed Fluid overload OGT low intermittent wall suction-dark bilious output Patient Hemoccult positive this admission, Hemoccult positive last admission status post panendoscopy with benign findings GI consulted-appreciate recommendations Nephrology following Monitor BMP Hypocalcemia 5.7, hypokalemia 3.0,hypomagnesemia 1.2-repletion in progress Zofran for nausea Albumin 1.1 1/3 amylase, lipase WNL Heme/ID: HCAP right lower lobe Septic shock with multiorgan system failure Pleural effusion Bandemia Acute blood loss anemia Thrombocytopenia Patient received Zosyn and vancomycin in the ED Initial lactic acid 1.3, monitor serial levels, bands 12% Continue to monitor CBC Consulted ID-appreciate recommendations-. Antibiotics initiated Levaquin Azithromycin Zosyn and vancomycin 1/2 Blood cultures- gram positive cocci 1/2-urine esyzizs-jhoj-bdodgvcc rods Follow-up sputum cultures 1/2 Legionella and pneumococcal antigen-negative 1/2- influenza antigen-negative 04/10 Transfuse 1 unit of packed red blood cells, 04/12 platelet count 47-transfuse 1 unit of platelets, maintain platelet count of 50,000 Obtain every 6 hours H&H's, obtain fibrinogen level, trend INR currently 1.6 04/[address] Sanabria , invasive radiology possible retroperitoneal hemorrhage, images reviewed states possibly an abscess versus retroperitoneal hemorrhage. Continue monitoring closely hemoglobin and hematocrit, declines plan for possible emergent intervention Concern for ischemic process, unable to obtain CT imaging, obtain ultrasound of abdomen, and KUB Endocrine: Diabetes mellitus Glucose monitoring per ICU protocol, low dose regimen TSH WNL 3.050 MSK: Stage II gluteal/ sacral ulcers Obtain wound care consult-follow up recommendations -- SSI Prophylaxis: GI Prophylaxis Protonix infusion DVT Prophylaxis -- SCDs Hold Coumadin in the setting of possible bleed Lines: Right IJ central line, left radial arterial line (04/10/17) Dispo: my billing statement This patient remains critically ill with one or more organ systems which are or may become a threat to life. I have spent in excess of 51 minutes discontinuously in the care and management of this patient. This time is exclusive of procedures, and includes, but is not limited to, evaluation of the patient, review of the medical record, discussions with family, consultants, nursing staff, or respiratory therapy, and documentation in the medical record. D/W SOUND MIXER at bedside (David), and attempted to contact family (Mechelle), unsuccessful. The patient currently is in multisystem organ failure, prognosis is poor. Palliative care medicine has been consulted, to define goals of care. Physician Lily Casey MD Apr 12, 2017 10:26
[2017-04-12] MEDS ORDERED: NOREPINEPHRINE 16 MG/D5W 250 ML IV PRN ×2 (10:45)
--- NOTE | 2017-04-12 11:20 | RADRPT ---
EXAM DATE/TIME: 04/12/2017 09:23 [facility] COMPARISON: CT ABDOMEN & PELVIS W/O CONTRAST, April 10, 2017, 9:20. INDICATIONS : Elevated labs. MEDICAL HISTORY : Congestive heart failure. Anticoagulant therapy. Atrial fibrillation. Pancreatitis. Left kidney cance r. Tonsillectomy. Abdominal aortic aneurysm repair. Cyst removed from throat. SURGICAL HISTORY : Cholecystectomy. Cardiac catheterization. Cardiac stent. Hernia repair. Tonsillectomy. Abdomin al aortic aneurysm repair. Cyst removed from throat. ENCOUNTER: Subsequent ACUITY: 1 day PAIN SCORE: Nonresponsive. LOCATION: Bilateral upper quadrant MEASUREMENTS: LIVER: 21.3 cm length COMMON DUCT: 8 mm RIGHT KIDNEY: 11.7 x 6.7 x 7.1 cm LEFT KIDNEY: 10.4 x 7.0 x 5.8 cm SPLEEN: 12.1 cm length AORTA: 3.5cm maximal FINDINGS: Ultrasound of the upper abdomen demonstrates increased echogenicity of the liver compatible with fatt y infiltration or hepatocellular disease. The spleen is unremarkable. There are multiple bilateral re nal cysts with potential solid cystic mass in the lower pole the right kidney. This was seen on the p rior CT scan and may reflect abscess. This would be accessible to percutaneous biopsy.The gallbladder is surgically absent. Mild ascites is present. The visualized portion of the aorta and inferior vena cava are unremarkable. There is dilatation of the common duct 8 mm as well dilatation of the pancreatic duct in this patient with findings of chronic pancreatitis. CONCLUSION: 1. 8 cm cystic mass posterior to the right kidney which may reflect abscess or hematoma. This would b e accessible to percutaneous biopsy. 2. Chronic pancreatitis 3. Mild ascites 1. Theo Sanabria MD on April 12, 2017 at 11:13 Board Certified Radiologist. This report was verified electronically.
--- NOTE | 2017-04-12 12:05 | PD.CONS ---
Consult Service Palliative Care Consult Requested By Dr. Arroyo . [facility] Reason for Consultation a. To assist with evaluation and management of symptoms including: Dyspnea, pain b. To assist medical decision maker(s) with: better understanding of current medical conditions; weighing benefits/burdens of medical treatment options; making medical treatment decisions. HPI History of Present Illness This is a 71-year-old male with a past medical history of pulmonary embolus, atrial fibrillation on Coumadin, AAA, anxiety, coronary artery disease, COPD, CKD, DM and anemia who comes back to the ED for altered mental status, dyspnea and hypotension. He was found to have strep pneumoniae suspicious for aspiration as well as an Escherichia coli UTI. Nasal washing was negative for influenza A and B. He had previously been seen in [place] on 02/28 through for a GI bleed, HCAP and was noted to have a perinephric hematoma status post IR embolization. He has been seen in [place] ED 5 times since November 19, for a UTI related to an indwelling White catheter. Hospital course: Upon evaluation to the ED, lithographic plate maker was consulted due to his multisystem organ involvement and he was subsequently intubated. Consultation requests were issued for GI and nephrology. Coumadin was held. 2-D echocardiogram was completed showing an ejection fraction of 60-65% with mild tricuspid valve regurgitation, pulmonary hypertension with PAP of 54.6 mmHg and moderate pulmonary valve regurgitation. On 04/12 he had an episode of wide-complex tachycardia with hypotension, blood pressures in the 60s over 40s, requiring the initiation of vasopressors. He is currently receiving norepinephrine, phenylephrine and vasopressin for hemodynamic support. He is receiving a bicarbonate infusion for his worsening acidosis. Amiodarone has been initiated for ventricular arrhythmia suppression. He is receiving azithromycin, levofloxacin and, Zosyn for broad-spectrum coverage. Radiology: Abdomen pelvis CT showed right lung base consolidation not present on previous study characteristic of pneumonia possibly aspiration. Bladder stone and previously seen perinephric well-defined hemorrhage not significantly changed. Fluid collection within the central last muscle increased in size slightly and may represent retroperitoneal hemorrhage is evolving and should be followed. Abdominal ultrasound shows a 1.8 cm cystic mass posterior to the right kidney which may reflect abscess or hematoma and would be accessible to percutaneous biopsy. Chronic pancreatitis and mild ascites. Chest x-ray shows slight progression in the bilateral pleural effusions and bilateral pulmonary infiltrates. Consultations: * Nephrology: Patient now oliguric with acute tubular necrosis, multiorgan failure, severe acidosis with hemorrhagic and septic shock. * GI: Recommended holding Coumadin, plan EGD colonoscopy if he stabilizes. Upon evaluation he appears to be an elderly, ill male, thin, intubated, sedated on multiple IV infusions, mechanically ventilated. OG tube draining dark green/ black fluid. Minimal urine output in the White catheter. He remains under a warming blanket due to hypothermia. Function/Cognitive Trajectory When patient was seen by physical therapy 01/22/17 his function was good enough that he was recommended for home discharge with no follow-up physical therapy. He had multiple hospital and ER admissions since that time and at last physical therapy assessment, patient was recommended for inpatient rehabilitation due to progressive weakness. Review of Systems ROS Limitations: Clinical Condition, Intubated, Altered Mental Status (Patient is nonverbal unable to provide a meaningful ROS due to clinical condition. 10 part ROS taken as best as possible from medical record and available family.) Past Family Social History Coded Allergies: No Known Allergies (Verified Allergy, Unknown, 03/31/17) Past Medical History AAA status post stent involving thoracic and abdominal aorta CAD CHF although recent echo shows EF 60-65% with no regional wall abnormalities. COPD CKD AFib on coumadin colon polyps Left hydrocele Bilateral pulmonary embolus 09/2010 Diabetes mellitus PAD Chronic pancreatitis Hiatal hernia Multiple kidney cysts Hypertension Hyperlipidemia NSTEMI Agent orange exposure in [place] Past Surgical History Coronary stent placement to circumflex with 3.5 x 14 mm resolute stent Bilateral inguinal hernia repair Umbilical hernia repair with Marlex mesh Left hydrocelectomy and excision of cord lipoma 2002 Thoracic aneurysm stent placement Tonsillectomy Urinary stent placement Chronic indwelling White placement or possible neurogenic bladder, unconfirmed Left pararenal pseudoaneurysm repair at [facility] Reported Medications Reported Meds & Active Scripts Active Loperamide (Loperamide HCl) 2 Mg Cap 2 Mg PO DIRECTED PRN 30 Days One capsule after each loose stool. Not to exceed 8 capsules per day. Magnesium Oxide 400 Mg Tab 400 Mg PO DAILY 30 Days Coreg (Carvedilol) 6.25 Mg Tab 6.25 Mg PO Q12HR Pantoprazole (Pantoprazole Sodium) 40 Mg Tab 40 Mg PO DAILY Ferosul (Ferrous Sulfate) 325 Mg Tablet 325 Mg PO DAILY Vitamin D3 (Cholecalciferol) 5,000 Unit Cap 5,000 Units PO DAILY Oyster Shell 250 mg + Vit D Tb (Calcium/Vitamin D) 250 Mg Calcium (625 Mg)-125 Unit Tablet 500 Mg PO Q12HR Rocaltrol (Calcitriol) 0.25 Mcg Cap 0.5 Mcg PO DAILY Reported Losartan (Losartan Potassium) 25 Mg Tab 25 Mg PO DAILY Hydralazine HCl 25 Mg Tablet 10 Mg PO TID Pravastatin 40 Mg Tab 40 Mg PO DAILY Current Medications Medications (Trade) Dose Ordered Sig/Ana Route Start Time Stop Time Status Last Admin Pantoprazole Sodium 80 mg/ Sodium Chloride 100 ml @ 10 mls/hr Q10H IV 04/10/17 11:52 04/12/17 08:19 (NS Flush) 2 ml UNSCH PRN IV FLUSH 04/10/17 12:00 04/10/17 16:03 (NS Flush) 2 ml BID IV FLUSH 04/10/17 21:00 04/12/17 08:20 (Tylenol) 650 mg Q6H PRN PO 04/10/17 12:00 (Pepcid Inj) 10 mg Q12HR PRN IV PUSH 04/10/17 21:00 (Pepcid) 10 mg Q12HR PO 04/10/17 21:00 04/12/17 08:20 (Zofran Inj) 4 mg Q6H PRN IV PUSH 04/10/17 12:00 (Duoneb Neb) 1 ampule Q4HR NEB PRN NEB 04/10/17 12:45 Miscellaneous Information 1 Q361D XX 04/10/17 12:00 (Chlorhexidine 2% Cloth) 3 pack Taper DAILY@04 TOP 04/11/17 04:00 04/07/18 03:59 04/12/17 04:00 (Chlorhexidine 2% Cloth) 3 pack UNSCH PRN TOP 04/10/17 12:00 (Valerie-Colace) 1 tab BID PO 04/10/17 21:00 (Milk Of Magnesia Liq) 30 ml Q12H PRN PO 04/10/17 12:00 (Senokot) 17.2 mg Q12H PRN PO 04/10/17 12:00 (Dulcolax Supp) 10 mg DAILY PRN RECTAL 04/10/17 12:00 (Lactulose Liq) 30 ml DAILY PRN PO 04/10/17 12:00 Azithromycin 500 mg/Sodium Chloride 250 ml @ 250 mls/hr Q24H IV 04/10/17 13:00 04/11/17 12:52 Levofloxacin/ Dextrose 150 ml @ 100 mls/hr Q48H IV 04/10/17 14:00 04/10/17 14:00 (D50w (Vial) Inj) 50 ml UNSCH PRN IV PUSH 04/10/17 12:15 04/10/17 12:55 (Glucagon Inj) 1 mg UNSCH PRN OTHER 04/10/17 12:15 Piperacillin Sod/ Tazobactam Sod 50 ml @ 100 mls/hr Q6H IV 04/10/17 16:00 04/12/17 08:20 Fentanyl Citrate 250 ml @ 5 mls/hr TITRATE PRN IV 04/10/17 14:45 04/12/17 01:53 Vasopressin 40 units/Dextrose 100 ml @ 1.5 mls/hr TITRATE PRN IV 04/10/17 15:15 04/12/17 01:53 (SoluCORTEF INJ) 100 mg Q8HR IV PUSH 04/10/17 16:37 04/12/17 05:33 (Brethine Inj) 1 mg UNSCH PRN SQ 04/10/17 22:15 (D50w (Vial) Inj) 50 ml UNSCH PRN IV PUSH 04/11/17 04:30 Sodium Bicarbonate 150 meq/Dextrose 1,000 ml @ 125 mls/hr Q8H IV 04/11/17 21:00 04/12/17 08:19 (Tears Naturale Opth Soln) 1 drop Q4H PRN EACH EYE 04/11/17 18:00 Phenylephrine HCl 160 mg/Dextrose 500 ml @ 29.62 mls/ hr TITRATE PRN IV 04/12/17 03:15 Magnesium Sulfate/ Dextrose 100 ml @ 100 mls/hr Q1H IV 04/12/17 09:00 04/12/17 10:59 04/12/17 10:00 Pharmacy Profile Note 0 ml @ 0 mls/hr UNSCH OTHER 04/12/17 09:00 Vancomycin HCl 1500 mg/Sodium Chloride 515 ml @ 250 mls/hr ONCE ONCE IV 04/12/17 10:00 04/12/17 12:03 04/12/17 09:24 Amiodarone HCl 450 mg/Dextrose 250 ml @ 33.33 mls/ hr TITRATE PRN IV 04/12/17 09:45 04/12/17 10:11 Norepinephrine Bitartrate 16 mg/ Dextrose 250 ml @ 1.87 mls/hr TITRATE PRN IV 04/12/17 10:45 Family History Both parents in their 70s, mother's from complications of heart disease, father's cause of unknown. . Substance Use Tobacco: Has smoked 1.5-2 packs per day or 60 years. Alcohol: Past history of social use, none current. Prescription med abuse: No history of prescription medication abuse. Illicits: Previous history of some marijuana use, none currently. . 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 He served in [employer] where he suffered extensive agent orange exposure. He has 2 children of his own and lives at home with them. . Spiritual/Cultural Factors Raised Mandaeism. 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 . Living Will: Never completed Health Care Surrogate: Never completed Durable Power of Shorthand Reporter: Never completed Physical Exam Vital Signs Date Time Temp Pulse Resp B/P (MAP) Pulse Ox O2 Delivery O2 Flow Rate FiO2 04/12/17 10:31 166 61/70 04/12/17 10:11 64 170/59 04/12/17 08:10 100 40 04/12/17 06:52 78 129/45 04/12/17 06:51 69 127/42 04/12/17 06:00 87 04/12/17 05:52 83 157/47 04/12/17 05:37 71 163/48 04/12/17 05:37 77 161/44 04/12/17 05:37 77 161/44 04/12/17 05:28 69 174/39 04/12/17 05:10 69 147/46 04/12/17 05:00 70 159/46 04/12/17 04:08 96 40 04/12/17 04:00 66 04/12/17 04:00 40 04/12/17 04:00 97.3 66 17 138/63 (88) 95 156/41 (79) 04/12/17 03:58 65 157/42 04/12/17 03:50 66 165/38 04/12/17 03:44 71 172/40 1/4/18 03:39 65 178/44 04/12/17 03:31 77 179/43 04/12/17 03:29 75 177/46 04/12/17 03:28 64 179/46 04/12/17 03:26 72 187/49 04/12/17 03:15 74 184/50 04/12/17 03:10 66 189/50 04/12/17 03:05 63 182/77 04/12/17 02:57 64 188/44 04/12/17 02:57 64 188/44 04/12/17 02:06 53 130/36 04/12/17 02:00 54 04/12/17 01:53 55 146/38 04/12/17 01:52 54 146/38 04/12/17 01:12 54 147/36 04/12/17 00:03 100 40 04/12/17 00:01 96.1 53 16 137/65 (89) 98 141/41 (74) 04/12/17 00:00 40 04/12/17 00:00 53 04/11/17 23:01 53 135/39 04/11/17 22:47 53 141/41 04/11/17 22:37 55 149/43 04/11/17 22:20 57 147/45 04/11/17 22:00 57 04/11/17 21:59 57 158/45 04/11/17 21:05 59 171/45 04/11/17 20:45 98 40 04/11/17 20:38 60 173/45 04/11/17 20:12 60 175/50 04/11/17 20:01 97.5 60 16 139/63 (88) 97 172/49 (90) 04/11/17 20:00 40 04/11/17 20:00 60 18 19:39 60 170/49 04/11/17 19:39 60 170/49 04/11/17 19:39 60 170/49 04/11/17 19:38 60 173/48 04/11/17 19:29 59 167/47 04/11/17 18:00 60 04/11/17 18:00 59 142/40 04/11/17 18:00 59 135/39 04/11/17 17:00 58 154/43 04/11/17 16:00 99.5 62 16 91/53 (66) 96 142/46 (78) 04/11/17 16:00 62 04/11/17 16:00 40 04/11/17 15:32 96 40 04/11/17 15:00 99.7 65 17 142/47 (78) 96 04/11/17 14:00 99.9 69 16 88/50 (63) 96 135/47 (76) 04/11/17 14:00 69 04/11/17 13:15 68 129/46 04/11/17 13:00 99 40 04/11/17 13:00 100.0 68 17 131/47 (75) 95 04/11/17 12:15 77 134/46 04/11/17 12:00 66 04/11/17 12:00 100.0 66 16 77/42 (54) 94 108/42 (64) 04/11/17 12:00 100 04/11/17 11:18 69 111/42 04/11/17 11:18 73 118/53 04/11/17 11:15 99 40 04/11/17 11:00 100.2 69 16 129/54 (79) 98 18 04/13/17 19:00 07:00 Intake Total 56 ml Balance 56 ml Intake IV Total 6 ml Blood Product IV Normal Saline Flush 50 ml Exam CONSTITUTIONAL/GENERAL: This is an adequately nourished patient, intubated, sedated. TUBES/LINES/DRAINS: Left radial arterial line, Right IJ CVL, left AC PIV, ETT, OGT, White SKIN: No jaundice, rashes, or lesions. Ecchymoses on upper extremities. No wounds seen anteriorly. Skin temperature appropriate. Not diaphoretic. HEAD: Atraumatic. Normocephalic. EYES: Pupils equal and round and reactive. No scleral icterus. No injection or drainage. Fundi not examined. ENT: Orally intubated. NECK: Trachea midline. Supple, nontender. No palpable thyroid enlargement or nodularity. CARDIOVASCULAR: Distant heart sounds, S1-S2, irregular rhythm, controlled rate without murmurs, gallops, or rubs. No JVD. Peripheral pulses symmetric, diminished. RESPIRATORY/CHEST: Symmetric, unlabored respirations. Clear to auscultation. Breath sounds equal bilaterally. No wheezes, rales, or rhonchi. GASTROINTESTINAL: Abdomen soft, nondistended. No hepato-splenomegaly, or palpable masses. Bowel sounds hypoactive. GENITOURINARY: Without palpable bladder distension. White catheter in place with minimal cloudy urine drainage. MUSCULOSKELETAL: Extremities without clubbing, cyanosis, or edema. No joint tenderness or effusion noted. No mottling or clubbing. LYMPHATICS: No palpable cervical or supraclavicular adenopathy. NEUROLOGICAL: Intubated, sedated. PSYCHIATRIC: Sedated. . Diagnostic Tests Laboratory Laboratory Tests Test 04/10/17 09:10 04/10/17 10:00 04/10/17 11:30 04/10/17 13:40 Blood Urea Nitrogen 52 MG/DL (7-18) Creatinine 2.94 MG/DL (0.60-1.30) Random Glucose 62 MG/DL (74-106) Total Protein 5.3 GM/DL (6.4-8.2) Albumin 1.5 GM/DL (3.4-5.0) Calcium Level 6.7 MG/DL (8.5-10.1) Alkaline Phosphatase 115 U/L (45-117) Aspartate Amino Transf (AST/SGOT) 28 U/L (15-37) Alanine Aminotransferase (ALT/SGPT) 15 U/L (12-78) Total Bilirubin 0.2 MG/DL (0.2-1.0) Sodium Level 142 MEQ/L (136-145) Potassium Level 3.9 MEQ/L (3.5-5.1) Chloride Level 120 MEQ/L (98-107) Carbon Dioxide Level 7.8 MEQ/L (21.0-32.0) Anion Gap 14 MEQ/L (5-15) Estimat Glomerular Filtration Rate 21 ML/MIN (>89) Protein Corrected Calcium 7.6 MG/DL (8.5-10.1) Troponin I 0.03 NG/ML (0.02-0.05) White Blood Count 4.3 TH/MM3 (4.0-11.0) Red Blood Count 3.04 MIL/MM3 (4.50-5.90) Hemoglobin 8.9 GM/DL (13.0-17.0) Hematocrit 28.7 % (39.0-51.0) Mean Corpuscular Volume 94.5 FL (80.0-100.0) Mean Corpuscular Hemoglobin 29.3 PG (27.0-34.0) Mean Corpuscular Hemoglobin Concent 31.0 % (32.0-36.0) Red Cell Distribution Width 20.0 % (11.6-17.2) Platelet Count 103 TH/MM3 (150-450) Mean Platelet Volume 10.7 FL (7.0-11.0) CBC Comment AUTO DIFF Differential Total Cells Counted 100 Neutrophils % (Manual) 63 % (16-70) Band Neutrophils % 12 % (0-6) Lymphocytes % 8 % (9-44) Monocytes % 9 % (0-8) Neutrophils # (Manual) 3.6 TH/MM3 (1.8-7.7) Metamyelocytes 6 % (0-1) Myelocytes 2 % (0-0) Nucleated Red Blood Cells 1 /100 WBC (0-0) Differential Comment FINAL DIFF MANUAL Platelet Estimate LOW (NORMAL) Platelet Morphology Comment ENLARGED (NORMAL) [place] Cells 1+ (NORMAL) Crenated Cell 1+ (NORMAL) Prothrombin Time 15.7 SEC (9.8-11.6) Prothromb Time International Ratio 1.6 RATIO Activated Partial Thromboplast Time 36.9 SEC (24.3-30.1) Lactic Acid Level 0.9 mmol/L (0.4-2.0) B-Type Natriuretic Peptide 269 PG/ML (0-100) Urine Color YELLOW (YELLW/STRAW) Urine Turbidity CLOUDY (CLEAR) Urine pH 5.5 (5.0-8.5) Urine Specific [place] 1.013 (1.002-1.035) Urine Protein 300 mg/dL (NEG-TRACE) Urine Glucose (UA) NEG mg/dL (NEG) Urine Ketones TRACE mg/dL (NEG) Urine Occult Blood MOD (NEG) Urine Nitrite POS (NEG) Urine Bilirubin NEG (NEG) Urine Urobilinogen LESS THAN 2.0 MG/DL (LESS Urine Leukocyte Esterase LARGE (NEG) Urine RBC 3 /hpf (0-3) Urine WBC 136 /hpf (0-5) Urine WBC Clumps RARE (NONE) Urine Squamous Epithelial Cells <1 /hpf (0-5) Urine Bacteria MANY /hpf (NONE) Urine Mucus FEW /lpf (OCC) Microscopic Urinalysis Comment CATH-CULTURE IND Nasal Screen MRSA (PCR) MRSA DETECTED (NOT DETECT) Test 04/10/17 15:06 04/10/17 15:12 04/10/17 16:10 04/10/17 16:48 White Blood Count 4.5 TH/MM3 (4.0-11.0) Red Blood Count 2.76 MIL/MM3 (4.50-5.90) Hemoglobin 7.8 GM/DL (13.0-17.0) Hematocrit 25.8 % (39.0-51.0) Mean Corpuscular Volume 93.4 FL (80.0-100.0) Mean Corpuscular Hemoglobin 28.2 PG (27.0-34.0) Mean Corpuscular Hemoglobin Concent 30.2 % (32.0-36.0) Red Cell Distribution Width 19.1 % (11.6-17.2) Platelet Count 108 TH/MM3 (150-450) Mean Platelet Volume 10.0 FL (7.0-11.0) CBC Comment AUTO DIFF Differential Total Cells Counted 100 Neutrophils % (Manual) 56 % (16-70) Band Neutrophils % 25 % (0-6) Lymphocytes % 4 % (9-44) Monocytes % 1 % (0-8) Neutrophils # (Manual) 4.3 TH/MM3 (1.8-7.7) Metamyelocytes 5 % (0-1) Myelocytes 6 % (0-0) Promyelocytes 3 % (0-0) Differential Comment FINAL DIFF MANUAL Platelet Estimate LOW (NORMAL) Platelet Morphology Comment ENLARGED (NORMAL) [place] Cells 2+ (NORMAL) Crenated Cell 1+ (NORMAL) Prothrombin Time 16.4 SEC (9.8-11.6) Prothromb Time International Ratio 1.6 RATIO Blood Urea Nitrogen 51 MG/DL (7-18) Creatinine 2.95 MG/DL (0.60-1.30) Random Glucose 164 MG/DL (74-106) Total Protein 4.7 GM/DL (6.4-8.2) Albumin 1.4 GM/DL (3.4-5.0) Calcium Level 6.7 MG/DL (8.5-10.1) Alkaline Phosphatase 105 U/L (45-117) Aspartate Amino Transf (AST/SGOT) 31 U/L (15-37) Alanine Aminotransferase (ALT/SGPT) 16 U/L (12-78) Total Bilirubin 0.2 MG/DL (0.2-1.0) Sodium Level 143 MEQ/L (136-145) Potassium Level 3.8 MEQ/L (3.5-5.1) Chloride Level 120 MEQ/L (98-107) Carbon Dioxide Level 9.7 MEQ/L (21.0-32.0) Anion Gap 13 MEQ/L (5-15) Estimat Glomerular Filtration Rate 21 ML/MIN (>89) Protein Corrected Calcium 7.9 MG/DL (8.5-10.1) Ammonia 89 MCMOL/L (11-32) Total Creatine Kinase 303 U/L (39-308) Thyroid Stimulating Hormone 3rd Gen 3.050 uIU/ML (0.358-3.740) Random Cortisol 33.9 MCG/DL Blood Gas Puncture Site ART LINE Blood Gas Patient Temperature 98.6 Blood Gas HCO3 8 mmol/L (22-26) Blood Gas Base Excess -22.9 mmol/L (-2-2) Blood Gas Oxygen Saturation 95 % (90-100) Arterial Blood pH 6.83 (7.380-7.420) Arterial Blood Partial Pressure CO2 51 mmHg (38-42) Arterial Blood Partial Pressure O2 403 mmHg (61-120) Arterial Blood Oxygen Content 11.7 Vol % (12.0-20.0) Arterial Blood Carboxyhemoglobin 0.0 % (0-4) Arterial Blood Methemoglobin 3.1 % (0-2) Blood Gas Hemoglobin 8.1 G/DL (12.0-16.0) Oxygen Delivery Device VENTILATOR Blood Gas Ventilator Setting A/C 500/16/5PEEP Blood Gas Inspired Oxygen 100 % Troponin I 0.03 NG/ML (0.02-0.05) Amylase Level 27 U/L (25-115) Lipase 76 U/L (73-393) Lactic Acid Level 1.0 mmol/L (0.4-2.0) Test 04/10/17 18:23 04/10/17 20:22 04/11/17 01:35 04/11/17 04:40 Potassium Level 3.4 MEQ/L (3.5-5.1) 3.2 MEQ/L (3.5-5.1) Blood Gas Puncture Site ART LINE Blood Gas Patient Temperature 98.6 Blood Gas HCO3 12 mmol/L (22-26) Blood Gas Base Excess -18.6 mmol/L (-2-2) Blood Gas Oxygen Saturation 95 % (90-100) Arterial Blood pH 6.93 (7.380-7.420) Arterial Blood Partial Pressure CO2 58 mmHg (38-42) Arterial Blood Partial Pressure O2 342 mmHg (61-120) Arterial Blood Oxygen Content 12.4 Vol % (12.0-20.0) Arterial Blood Carboxyhemoglobin 0.0 % (0-4) Arterial Blood Methemoglobin 2.9 % (0-2) Blood Gas Hemoglobin 8.7 G/DL (12.0-16.0) Oxygen Delivery Device VENTILATOR Blood Gas Ventilator Setting AC18/500/5PEEP Blood Gas Inspired Oxygen 100 % Hemoglobin 8.3 GM/DL (13.0-17.0) 8.7 GM/DL (13.0-17.0) Hematocrit 26.6 % (39.0-51.0) 27.5 % (39.0-51.0) Blood Urea Nitrogen 48 MG/DL (7-18) Creatinine 3.03 MG/DL (0.60-1.30) Random Glucose 278 MG/DL (74-106) Total Protein 4.8 GM/DL (6.4-8.2) Calcium Level 6.1 MG/DL (8.5-10.1) Phosphorus Level 6.5 MG/DL (2.5-4.9) Sodium Level 138 MEQ/L (136-145) Chloride Level 109 MEQ/L (98-107) Carbon Dioxide Level 16.3 MEQ/L (21.0-32.0) Anion Gap 13 MEQ/L (5-15) Estimat Glomerular Filtration Rate 20 ML/MIN (>89) Protein Corrected Calcium 7.2 MG/DL (8.5-10.1) Troponin I 0.31 NG/ML (0.02-0.05) Free Thyroxine 0.70 NG/DL (0.76-1.46) Free Triiodothyronine (T3) pg/dL LESS THAN 0.50 PG/ML White Blood Count 4.6 TH/MM3 (4.0-11.0) Red Blood Count 3.07 MIL/MM3 (4.50-5.90) Mean Corpuscular Volume 89.6 FL (80.0-100.0) Mean Corpuscular Hemoglobin 28.3 PG (27.0-34.0) Mean Corpuscular Hemoglobin Concent 31.6 % (32.0-36.0) Red Cell Distribution Width 18.4 % (11.6-17.2) Platelet Count 95 TH/MM3 (150-450) Mean Platelet Volume 10.4 FL (7.0-11.0) CBC Comment AUTO DIFF Differential Total Cells Counted 100 Neutrophils % (Manual) 43 % (16-70) Band Neutrophils % 25 % (0-6) Lymphocytes % 6 % (9-44) Monocytes % 4 % (0-8) Neutrophils # (Manual) 4.1 TH/MM3 (1.8-7.7) Metamyelocytes 22 % (0-1) Nucleated Red Blood Cells 5 /100 WBC (0-0) Differential Comment FINAL DIFF MANUAL Platelet Estimate LOW (NORMAL) Platelet Morphology Comment NORMAL (NORMAL) Basophilic Stippling MOD (NORMAL) Acanthocytes 2+ (NORMAL) Prothrombin Time 16.4 SEC (9.8-11.6) Prothromb Time International Ratio 1.6 RATIO Fibrinogen 261 mg/dL (227-377) Test 04/11/17 05:36 04/11/17 16:00 04/11/17 16:25 04/12/17 03:00 Blood Gas Puncture Site ART LINE ART LINE ART LINE Blood Gas Patient Temperature 98.6 98.6 98.6 Blood Gas HCO3 15 mmol/L (22-26) 16 mmol/L (22-26) 16 mmol/L (22-26) Blood Gas Base Excess -15.1 mmol/L (-2-2) -12.0 mmol/L (-2-2) -10.8 mmol/L (-2-2) Blood Gas Oxygen Saturation 95 % (90-100) 93 % (90-100) 93 % (90-100) Arterial Blood pH 6.98 (7.380-7.420) 7.09 (7.380-7.420) 7.19 (7.380-7.420) Arterial Blood Partial Pressure CO2 64 mmHg (38-42) 56 mmHg (38-42) 44 mmHg (38-42) Arterial Blood Partial Pressure O2 300 mmHg (61-120) 92 mmHg (61-120) 91 mmHg (61-120) Arterial Blood Oxygen Content 13.3 Vol % (12.0-20.0) 11.0 Vol % (12.0-20.0) 10.4 Vol % (12.0-20.0) Arterial Blood Carboxyhemoglobin 0.0 % (0-4) 0.1 % (0-4) 0.5 % (0-4) Arterial Blood Methemoglobin 2.7 % (0-2) 2.9 % (0-2) 2.6 % (0-2) Blood Gas Hemoglobin 9.4 G/DL (12.0-16.0) 8.3 G/DL (12.0-16.0) 7.8 G/DL (12.0-16.0) Oxygen Delivery Device VENTILATOR VENTILATOR VENTILATOR Blood Gas Ventilator Setting AC16/6005PEEP 600/16/5PEEP VOLUME AC Blood Gas Inspired Oxygen 100 % 40 % 40 % Hemoglobin 8.6 GM/DL (13.0-17.0) Hematocrit 26.3 % (39.0-51.0) Potassium Level 3.5 MEQ/L (3.5-5.1) Test 04/12/17 03:35 04/12/17 05:29 White Blood Count 4.5 TH/MM3 (4.0-11.0) Red Blood Count 3.03 MIL/MM3 (4.50-5.90) Hemoglobin 8.6 GM/DL (13.0-17.0) Hematocrit 26.1 % (39.0-51.0) Mean Corpuscular Volume 86.2 FL (80.0-100.0) Mean Corpuscular Hemoglobin 28.5 PG (27.0-34.0) Mean Corpuscular Hemoglobin Concent 33.0 % (32.0-36.0) Red Cell Distribution Width 17.9 % (11.6-17.2) Platelet Count 47 TH/MM3 (150-450) Mean Platelet Volume 9.5 FL (7.0-11.0) CBC Comment AUTO DIFF Differential Total Cells Counted 100 Neutrophils % (Manual) 59 % (16-70) Band Neutrophils % 26 % (0-6) Lymphocytes % 8 % (9-44) Monocytes % 6 % (0-8) Neutrophils # (Manual) 3.9 TH/MM3 (1.8-7.7) Metamyelocytes 1 % (0-1) Nucleated Red Blood Cells 5 /100 WBC (0-0) Differential Comment FINAL DIFF MANUAL Platelet Estimate LOW (NORMAL) Platelet Morphology Comment NORMAL (NORMAL) [place] Cells 1+ (NORMAL) Crenated Cell 1+ (NORMAL) Acanthocytes 1+ (NORMAL) Blood Urea Nitrogen 51 MG/DL (7-18) Creatinine 3.30 MG/DL (0.60-1.30) Random Glucose 215 MG/DL (74-106) Total Protein 4.2 GM/DL (6.4-8.2) Albumin 1.1 GM/DL (3.4-5.0) Calcium Level 5.7 MG/DL (8.5-10.1) Phosphorus Level 5.4 MG/DL (2.5-4.9) Magnesium Level 1.2 MG/DL (1.5-2.5) Alkaline Phosphatase 79 U/L (45-117) Aspartate Amino Transf (AST/SGOT) 98 U/L (15-37) Alanine Aminotransferase (ALT/SGPT) 32 U/L (12-78) Total Bilirubin 0.5 MG/DL (0.2-1.0) Sodium Level 133 MEQ/L (136-145) Potassium Level 3.0 MEQ/L (3.5-5.1) Chloride Level 99 MEQ/L (98-107) Carbon Dioxide Level 19.1 MEQ/L (21.0-32.0) Anion Gap 15 MEQ/L (5-15) Estimat Glomerular Filtration Rate 18 ML/MIN (>89) Protein Corrected Calcium 7.0 MG/DL (8.5-10.1) Blood Gas Puncture Site ART LINE Blood Gas Patient Temperature 98.6 Blood Gas HCO3 16 mmol/L (22-26) Blood Gas Base Excess -10.3 mmol/L (-2-2) Blood Gas Oxygen Saturation 94 % (90-100) Arterial Blood pH 7.20 (7.380-7.420) Arterial Blood Partial Pressure CO2 44 mmHg (38-42) Arterial Blood Partial Pressure O2 118 mmHg (61-120) Arterial Blood Oxygen Content 10.7 Vol % (12.0-20.0) Arterial Blood Carboxyhemoglobin 0.4 % (0-4) Arterial Blood Methemoglobin 2.9 % (0-2) Blood Gas Hemoglobin 8.0 G/DL (12.0-16.0) Oxygen Delivery Device VENTILATOR Blood Gas Ventilator Setting VOLUME AC Blood Gas Inspired Oxygen 40 % . Result Diagram: 04/12/17 0335 04/12/17 0335 Microbiology Microbiology Date/Time Source Procedure Growth Status 04/10/17 10:00 Blood Peripheral Aerobic Blood Culture - Final Streptococcus Pneumoniae Complete 04/10/17 10:00 Anaerobic Blood Culture - Final Streptococcus Pneumoniae Complete 04/10/17 09:30 Blood Peripheral Aerobic Blood Culture - Preliminary Streptococcus Pneumoniae Resulted 04/10/17 09:30 Anaerobic Blood Culture - Final Streptococcus Pneumoniae Resulted 04/10/17 13:00 Nasal Washing Influenza Types A,B Antigen (CHRISTO) - Final NEGATIVE FOR FLU A AND B ANTIGEN.... Complete 04/10/17 11:30 Urine Catheterized Urine Legionella Antigen - Final PRESUMPTIVE NEGATIVE FOR LEGIONELLA P... Complete 04/10/17 11:30 Urine Catheterized Urine Streptococcus pneumoniae Antigen (M - Final PRESUMPTIVE NEGATIVE FOR STREPTOCOCCU... Complete 04/10/17 11:30 Urine Catheterized Urine Urine Culture - Final Escherichia Coli Complete Imaging Last Impressions Chest X-Ray 04/12/17 0600 Signed Impressions: Service Date/Time: April 03:08 - CONCLUSION: Slight progression in the bilateral pleural effusions and bilateral pulmonary infiltrates. Blaze Del Valle Jr., MD Head CT 04/10/17 0000 Signed Impressions: Service Date/Time: Monday, April 10, 2017 09:20 - CONCLUSION: Unremarkable study. Eduard Pillai MD Abdomen/Pelvis CT 04/10/17 0000 Signed Impressions: Service Date/Time: Monday, April 10, 2017 09:20 - CONCLUSION: 1. The right lung base consolidation not present previously characteristic of pneumonia possibility of aspiration should be entertained in the appropriate clinical setting. 2. Bladder stone. 3. The previously seen right perinephric well- defined hemorrhage has not significantly changed and the patient has undergone embolization since that time. 4. The fluid collection which is well defined within the psoas muscle has increased in size slightly may represent retroperitoneal hemorrhages evolving and could be followed. 5. Retroperitoneal lymph nodes are similar not changed since 11/2016. Eduard Pillai MD Procedures /-endotracheal intubation. /2-right IJ central line placement. /2-left radial arterial line placement. . Patient/Family Conference Present at Family Conference: Spoke with daughter, Mechelle, via phone. Updated as to current condition and discuss plans for possible withdrawal. Anticipatory guidance was provided with an explanation of procedures in process. All questions were answered. She called me back within 5 minutes of ending the call and informed me that her brother, Storm, has been hospitalized at [facility] with a diagnosis of pneumonia. She is requesting palliative care assistance in arranging a bedside visit for her brother at the time of withdrawal. Family Conference Location: Consult Room Issues Discussed: * Palliative care role, purpose, approach * Additional medical, psychosocial, and spiritual history * Patients general health, functional status, and cognitive changes in the months leading up to the current hospitalization * Patient/family understanding of the current medical problems * Patient/family understanding of prognosis * Patients goals of care as best understood from advance directives and/or conversations and/or values * Current medical treatment options and benefits/burdens of those options * Likely scenarios comparing ongoing aggressive care with a transition to comfort measures only * Questions answered to the best of my ability * Palliative care contact information provided Assessment and Plan Disease Oriented Problem List: (1) COPD (chronic obstructive pulmonary disease) (2) UTI (urinary tract infection) (3) CAD (coronary artery disease) (4) Anemia (5) HTN (hypertension) (6) DM (diabetes mellitus) (7) Atrial fibrillation with RVR (8) Perinephric hematoma (9) HCAP (healthcare-associated pneumonia) (10) Tobacco abuse (11) CKD (chronic kidney disease) stage 3, GFR 30-59 ml/min (12) Septic shock Symptom Scale: (1) Dyspnea and respiratory abnormalities (2) Pain, generalized Pertinent Non-Medical Issues Psychosocial:Born in [facility] where 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 He served in [place] where he suffered extensive agent orange exposure. He has 2 children of his own and lives at home with them. . Spiritual: Raised Mandaeism. 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 . Legal: None noted. . Ethical issues impacting care: None noted. . Important Contacts Daughter-Mechelle Mary . Prognosis His prognosis is poor. He has had multiple hospitalizations from multiple organ dysfunction. He has a known history of coronary artery disease status post stent placement as well as severe COPD from a long history of smoking. He has chronic pancreatitis, cystic lesions in the kidneys which appear to be hemorrhagic. He requires anticoagulation due to a history of atrial fibrillation as well as bilateral pulmonary emboli. He now has strep pneumoniae a as well as a urinary tract infection. He is septic and developed wide complex tachycardia this morning with severe hemodynamic instability now requiring multiple vasopressors for maintenance of hemodynamic stability. He is currently on a ventilator for respiratory support. It is likely that he will not survive this hospitalization. . Code Status: Full Code Plan PLAN: Legal decision maker: He is currently intubated and sedated and not capacitated to make his own decisions. By [place] statutes, as he is , the majority of his adult children would be the legal decision makers. He reportedly has 2 children, a son and daughter. Only the daughter's contact information is listed. Pending return call from daughter to establish contact with son. Goals: Aggressive at this time CODE STATUS: FULL CODE SYMPTOMS: * Pain: Likely sources of pain are invasive lines, bedbound status, increased work of breathing discomfort. He is currently sedated on a fentanyl drip to manage both sedation and pain management. * Dyspnea: Has a known history of COPD, agent orange exposure and a long history of tobacco use. He now has strep pneumoniae and suspected aspiration. Given his significant pulmonary compromise his ventilator course may be extended and could possibly require tracheostomy with PEG placement. These possible interventions will be discussed with the family to determine their goals of care. SUMMARY This is a 71-year-old male with multiple comorbidities and organ dysfunctions now admitted with sepsis, pneumonia and recurrent urinary tract infection. Kidney functioning is declining and urine output is minimal. His prognosis is poor with a high risk of multiple complications. He would be hospice appropriate if goals are consistent. Palliative care will continue to follow the patient during hospital course as condition evolves, to assist patient/decision-maker with understanding of their medical conditions, weighing benefits/burdens of treatment options, for clarification of goals of treatment. Additionally will assist with any symptoms of palliative concern. . Time Spent Time Periods: 2 PM-2:45 PM >50% Counseling/Coord of Care: Yes Thank you for the opportunity to participate in the care of Mr. Mary. Attestation To help prompt me to consider important information that might be impacting today's encounter and assessment, information from prior notes written by myself or my colleagues may have been "brought forward" into today's note. My signature on this note, however, is an attestation that I personally performed the exam, history, and/or decision-making noted today, and, unless otherwise indicated, the interactions with patient, family, and staff as well as the review of records all occurred today. I also attest that the listed assessment and stated plan reflect my best clinical judgment today based on the combination of historical information, prior notes, and today's exam/ interactions. When time spent is documented, it refers only to time spent today by the signer, or if indicated, combined time spent today by collaborating physician/nurse practitioner. . Karen Iyer Apr 12, 2017 12:00
[2017-04-12] MEDS: AZITHROMYCIN INJ 500 MG in SODIUM CHLOR 0.9% 250 ML INJ 250 ML IV SCH (12:40)
[2017-04-12] MEDS: LEVOFLOXACIN 750 MG PREMIX INJ 150 ML IV SCH (12:40)
[2017-04-12] MEDS ORDERED: POTASSIUM CHLOR 40 MEQ PREMIX 100 ML IV ONE ×2 (13:00→17:00)
[2017-04-12] MEDS ORDERED: DEXTROSE 50% IN WATER 50 ML VIAL(D50) IV PUSH PRN (13:15)
[2017-04-12] MEDS ORDERED: GLUCAGON 1 MG/ML VIAL OTHER PRN (13:15)
[2017-04-12] MEDS: INSULIN ASPART SUPPLEMENTAL SCALE SQ SCH ×3 (13:42→21:00)
--- NOTE | 2017-04-12 14:16 | HHI.GIFU ---
Objective Vitals I&O Vital Signs Date Time Temp Pulse Resp B/P (MAP) Pulse Ox O2 Delivery O2 Flow Rate FiO2 04/12/17 12:00 50 04/12/17 12:00 59 04/12/17 12:00 99.1 59 16 146/65 (92) 100 173/60 (97) 04/12/17 11:30 100 50 04/12/17 11:01 99.0 62 16 135/69 (91) 100 168/61 (96) 04/12/17 10:31 166 61/70 04/12/17 10:11 64 170/59 04/12/17 10:00 66 04/12/17 10:00 99.1 66 17 106/59 (75) 100 162/63 (96) 04/12/17 09:12 75 04/12/17 09:11 150 04/12/17 09:10 151 04/12/17 09:09 138 04/12/17 09:08 150 04/12/17 09:08 99.0 150 16 70/30 (43) 94 76/45 (55) 04/12/17 09:07 150 04/12/17 09:06 150 04/12/17 09:05 75 04/12/17 09:01 99.0 74 16 122/60 (80) 97 144/51 (82) 04/12/17 09:00 99.0 79 17 143/52 (82) 98 04/12/17 08:37 98.8 75 16 141/67 (91) 99 168/49 (88) 04/12/17 08:10 100 40 04/12/17 08:01 98.6 79 18 146/65 (92) 99 160/50 (86) 04/12/17 08:00 82 04/12/17 08:00 50 04/12/17 08:00 98.6 82 18 155/52 (86) 98 04/12/17 06:52 78 129/45 04/12/17 06:51 69 127/42 04/12/17 06:00 87 04/12/17 05:52 83 157/47 04/12/17 05:37 71 163/48 04/12/17 05:37 77 161/44 04/12/17 05:37 77 161/44 04/12/17 05:28 69 174/39 04/12/17 05:10 69 147/46 04/12/17 05:00 70 159/46 04/12/17 04:08 96 40 04/12/17 04:00 66 04/12/17 04:00 40 04/12/17 04:00 97.3 66 17 138/63 (88) 95 156/41 (79) 04/12/17 03:58 65 157/42 04/12/17 03:50 66 165/38 04/12/17 03:44 71 172/40 04/12/17 03:39 65 178/44 04/12/17 03:31 77 179/43 04/12/17 03:29 75 177/46 04/12/17 03:28 64 179/46 04/12/17 03:26 72 187/49 04/12/17 03:15 74 184/50 04/12/17 03:10 66 189/50 04/12/17 03:05 63 182/77 04/12/17 02:57 64 188/44 04/12/17 02:57 64 188/44 04/12/17 02:06 53 130/36 04/12/17 02:00 54 04/12/17 01:53 55 146/38 04/12/17 01:52 54 146/38 04/12/17 01:12 54 147/36 04/12/17 00:03 100 40 04/12/17 00:01 96.1 53 16 137/65 (89) 98 141/41 (74) 04/12/17 00:00 40 04/12/17 00:00 53 04/11/17 23:01 53 135/39 04/11/17 22:47 53 141/41 04/11/17 22:37 55 149/43 04/11/17 22:20 57 147/45 04/11/17 22:00 57 04/11/17 21:59 57 158/45 04/11/17 21:05 59 171/45 18 20:45 98 40 18 20:38 60 173/45 18 20:12 60 175/50 04/11/17 20:01 97.5 60 16 139/63 (88) 97 172/49 (90) 04/11/17 20:00 40 04/11/17 20:00 60 1/3/18 19:39 60 170/49 04/11/17 19:39 60 170/49 04/11/17 19:39 60 170/49 04/11/17 19:38 60 173/48 04/11/17 19:29 59 167/47 04/11/17 18:00 60 04/11/17 18:00 59 142/40 04/11/17 18:00 59 135/39 04/11/17 17:00 58 154/43 04/11/17 16:00 99.5 62 16 91/53 (66) 96 142/46 (78) 04/11/17 16:00 62 04/11/17 16:00 40 04/11/17 15:32 96 40 04/11/17 15:00 99.7 65 17 142/47 (78) 96 I/O 04/11/17 04/11/17 04/11/17 04/12/17 04/12/17 04/12/17 07:00 15:00 23:00 07:00 15:00 23:00 Intake Total 1752 ml 1850 ml 1885.0 ml 2149.3 ml 309 ml Output Total 123 ml 160 ml 240 ml Balance 1629 ml 1850 ml 1725.0 ml 1909.3 ml 309 ml Intake IV Total 1752 ml 1850 ml 1885.0 ml 2149.3 ml 6 ml Platelets 223 ml Blood Product IV Normal Saline Flush 80 ml Output Urine Total 123 ml 10 ml 65 ml Gastric Drainage Total 150 ml 175 ml # Bowel Movements 2 Laboratory Laboratory Tests Test 04/11/17 16:00 04/11/17 16:25 04/12/17 03:00 04/12/17 03:35 Hemoglobin 8.6 8.6 Hematocrit 26.3 26.1 Potassium Level 3.5 3.0 Blood Gas Puncture Site ART LINE ART LINE Blood Gas Patient Temperature 98.6 98.6 Blood Gas HCO3 16 16 Blood Gas Base Excess -12.0 -10.8 Blood Gas Oxygen Saturation 93 93 Arterial Blood pH 7.09 7.19 Arterial Blood Partial Pressure CO2 56 44 Arterial Blood Partial Pressure O2 92 91 Arterial Blood Oxygen Content 11.0 10.4 Arterial Blood Carboxyhemoglobin 0.1 0.5 Arterial Blood Methemoglobin 2.9 2.6 Blood Gas Hemoglobin 8.3 7.8 Oxygen Delivery Device VENTILATOR VENTILATOR Blood Gas Ventilator Setting 600/16/5PEEP VOLUME AC Blood Gas Inspired Oxygen 40 40 White Blood Count 4.5 Red Blood Count 3.03 Mean Corpuscular Volume 86.2 Mean Corpuscular Hemoglobin 28.5 Mean Corpuscular Hemoglobin Concent 33.0 Red Cell Distribution Width 17.9 Platelet Count 47 Mean Platelet Volume 9.5 CBC Comment AUTO DIFF Differential Total Cells Counted 100 Neutrophils % (Manual) 59 Band Neutrophils % 26 Lymphocytes % 8 Monocytes % 6 Neutrophils # (Manual) 3.9 Metamyelocytes 1 Nucleated Red Blood Cells 5 Differential Comment FINAL DIFF MANUAL Platelet Estimate LOW Platelet Morphology Comment NORMAL Lily Cells 1+ Crenated Cell 1+ Acanthocytes 1+ Blood Urea Nitrogen 51 Creatinine 3.30 Random Glucose 215 Total Protein 4.2 Albumin 1.1 Calcium Level 5.7 Phosphorus Level 5.4 Magnesium Level 1.2 Alkaline Phosphatase 79 Aspartate Amino Transf (AST/SGOT) 98 Alanine Aminotransferase (ALT/SGPT) 32 Total Bilirubin 0.5 Sodium Level 133 Chloride Level 99 Carbon Dioxide Level 19.1 Anion Gap 15 Estimat Glomerular Filtration Rate 18 Protein Corrected Calcium 7.0 Test 04/12/17 05:29 04/12/17 13:46 04/12/17 14:00 Blood Gas Puncture Site ART LINE ART LINE Blood Gas Patient Temperature 98.6 98.6 Blood Gas HCO3 16 19 Blood Gas Base Excess -10.3 -6.7 Blood Gas Oxygen Saturation 94 94 Arterial Blood pH 7.20 7.27 Arterial Blood Partial Pressure CO2 44 43 Arterial Blood Partial Pressure O2 118 152 Arterial Blood Oxygen Content 10.7 9.9 Arterial Blood Carboxyhemoglobin 0.4 0.5 Arterial Blood Methemoglobin 2.9 2.8 Blood Gas Hemoglobin 8.0 7.2 Oxygen Delivery Device VENTILATOR VENTILATOR Blood Gas Ventilator Setting VOLUME AC Blood Gas Inspired Oxygen 40 50 Date/Time Source Procedure Growth Status 04/10/17 10:00 Blood Peripheral Aerobic Blood Culture - Final Streptococcus Pneumoniae Complete 04/10/17 10:00 Anaerobic Blood Culture - Final Streptococcus Pneumoniae Complete 04/10/17 13:00 Nasal Washing Influenza Types A,B Antigen (CHRISTO) - Final NEGATIVE FOR FLU A AND B ANTIGEN.... Complete 04/10/17 11:30 Urine Catheterized Urine Legionella Antigen - Final PRESUMPTIVE NEGATIVE FOR LEGIONELLA P... Complete 04/10/17 11:30 Urine Catheterized Urine Streptococcus pneumoniae Antigen (M - Final PRESUMPTIVE NEGATIVE FOR STREPTOCOCCU... Complete Physical Exam HEENT: Pupils round and reactive to light; normocephalic; ventilator NECK: Neck is supple, CHEST: Chest is diminished sounds no active rhonchi CARDIAC: Regular rate and rhythm 70s ABDOMEN: NG tube to low intermittent suction, Soft, taut, nontender; no hepatosplenomegaly; bowel sounds are present in all four quadrants. EXTREMITIES: No clubbing, cyanosis, or edema. SKIN: Pale CREATIVE STRATEGIST: Sedated, weakened Assessment and Plan Plan ASSESSMENT - anemia, heme pos stool - hgb 8.9 on admission, had drop to 7.8., now stable at 8.6. No active rectal bleed. CT showed poss PNA, no change right perinephric hemorrhage since embolization , poss retroperitoneal hemorrhage. was on coumadin but has not had in few days. EGD 01/29/17 found peptic duodenitis; colonoscopy 01/29/17 showed innumerable med sessile polyps ascending colon, 2 x sessile polyps transverse colon, rec to rpt cscope in 2m. INR 1.6 today, was on coumadin but has not had in past few days. d/w CCM, not stable for procedures at this time, cannot place NGT or OGT to assess for UGIB - retroperitoneal hemorrhage per CT as above PLAN - EGD +/- colonoscopy, pt more stable, possible end of week or even into next week - Awaiting CT of abdomen scheduled for today - monitor labs - transfuse as needed - hold coumadin - Monitor for any bleeding or diarrhea - Plan a care will be based on patient's response to treatment regimen THis pt seen by myself and Dr Godoy and this note is written on his behalf La Nicole Apr 12, 2017 14:16
--- NOTE | 2017-04-12 14:24 | HHI.NPPN ---
Subjective History of Present Illness 71-year-old male with history of chronic kidney disease, now with acute renal failure, multiorgan failure, septic and hemorrhagic shock Objective Data Data 04/12/17 04/13/17 19:00 07:00 Intake Total 309 ml Balance 309 ml Intake IV Total 6 ml Platelets 223 ml Blood Product IV Normal Saline Flush 80 ml Vital Signs Date Time Temp Pulse Resp B/P (MAP) Pulse Ox O2 Delivery O2 Flow Rate FiO2 04/12/17 12:00 50 04/12/17 12:00 59 04/12/17 12:00 99.1 59 16 146/65 (92) 100 173/60 (97) 04/12/17 11:30 100 50 04/12/17 11:01 99.0 62 16 135/69 (91) 100 168/61 (96) 04/12/17 10:31 166 61/70 04/12/17 10:11 64 170/59 04/12/17 10:00 66 04/12/17 10:00 99.1 66 17 106/59 (75) 100 162/63 (96) 04/12/17 09:12 75 04/12/17 09:11 150 04/12/17 09:10 151 04/12/17 09:09 138 04/12/17 09:08 150 04/12/17 09:08 99.0 150 16 70/30 (43) 94 76/45 (55) 04/12/17 09:07 150 04/12/17 09:06 150 04/12/17 09:05 75 04/12/17 09:01 99.0 74 16 122/60 (80) 97 144/51 (82) 04/12/17 09:00 99.0 79 17 143/52 (82) 98 04/12/17 08:37 98.8 75 16 141/67 (91) 99 168/49 (88) 04/12/17 08:10 100 40 04/12/17 08:01 98.6 79 18 146/65 (92) 99 160/50 (86) 04/12/17 08:00 82 04/12/17 08:00 50 04/12/17 08:00 98.6 82 18 155/52 (86) 98 04/12/17 06:52 78 129/45 04/12/17 06:51 69 127/42 04/12/17 06:00 87 04/12/17 05:52 83 157/47 04/12/17 05:37 71 163/48 04/12/17 05:37 77 161/44 04/12/17 05:37 77 161/44 04/12/17 05:28 69 174/39 04/12/17 05:10 69 147/46 04/12/17 05:00 70 159/46 04/12/17 04:08 96 40 04/12/17 04:00 66 04/12/17 04:00 40 04/12/17 04:00 97.3 66 17 138/63 (88) 95 156/41 (79) 04/12/17 03:58 65 157/42 04/12/17 03:50 66 165/38 04/12/17 03:44 71 172/40 04/12/17 03:39 65 178/44 04/12/17 03:31 77 179/43 04/12/17 03:29 75 177/46 04/12/17 03:28 64 179/46 04/12/17 03:26 72 187/49 04/12/17 03:15 74 184/50 04/12/17 03:10 66 189/50 04/12/17 03:05 63 182/77 04/12/17 02:57 64 188/44 04/12/17 02:57 64 188/44 04/12/17 02:06 53 130/36 04/12/17 02:00 54 04/12/17 01:53 55 146/38 04/12/17 01:52 54 146/38 04/12/17 01:12 54 147/36 04/12/17 00:03 100 40 04/12/17 00:01 96.1 53 16 137/65 (89) 98 141/41 (74) 04/12/17 00:00 40 04/12/17 00:00 53 04/11/17 23:01 53 135/39 04/11/17 22:47 53 141/41 04/11/17 22:37 55 149/43 04/11/17 22:20 57 147/45 04/11/17 22:00 57 04/11/17 21:59 57 158/45 04/11/17 21:05 59 171/45 04/11/17 20:45 98 40 1/3/18 20:38 60 173/45 04/11/17 20:12 60 175/50 04/11/17 20:01 97.5 60 16 139/63 (88) 97 172/49 (90) 04/11/17 20:00 40 04/11/17 20:00 60 04/11/17 19:39 60 170/49 04/11/17 19:39 60 170/49 04/11/17 19:39 60 170/49 04/11/17 19:38 60 173/48 04/11/17 19:29 59 167/47 04/11/17 18:00 60 04/11/17 18:00 59 142/40 04/11/17 18:00 59 135/39 04/11/17 17:00 58 154/43 04/11/17 16:00 99.5 62 16 91/53 (66) 96 142/46 (78) 04/11/17 16:00 62 04/11/17 16:00 40 04/11/17 15:32 96 40 04/11/17 15:00 99.7 65 17 142/47 (78) 96 -: 04/12/17 0335 04/12/17 0335 Physical Exam General Appearance: Pale Neck Neck Exam: Neck Supple Pulmonary Resp Exam: Clear Bilaterally Cardiology CV Exam: Regular, Normal Sinus Rhythm Gastrointestinal/Abdomen GI Exam: Soft, Non-Tender Extremeties Extremities Exam: No Edema Assessment/Plan Problem List: (1) Acute renal failure ICD Codes: N17.9 - Acute kidney failure, unspecified Status: Acute Plan: Patient appears to have acute tubular necrosis Oliguria Multiorgan failure Severe acidosis Hemorrhagic and septic shock On vasopressors retro peritoneal bleed Poor prognosis Cr higher K/Mg replaced Continue supportive care urine output remains low Ecoli UTI Strep Pneumoniae sepsis (2) Metabolic acidosis ICD Codes: E87.2 - Acidosis Plan: On bicarbonate (3) Hemorrhagic shock ICD Codes: R57.8 - Other shock Plan: Monitor hemoglobin may need transfusion (4) Septic shock ICD Codes: A41.9 - Sepsis, unspecified organism; R65.21 - Severe sepsis with septic shock Plan: On antibiotic Levaquin, Zosyn and Zithromax (5) Acute blood loss anemia ICD Codes: D62 - Acute posthemorrhagic anemia Status: Resolved Plan: As above (6) Sepsis ICD Codes: A41.9 - Sepsis, unspecified organism Status: Acute Problem Qualifiers (1) Sepsis: Qualified Codes: A41.9 - Sepsis, unspecified organism Cecilio Howard MD Apr 12, 2017 14:24
[2017-04-12 14:26] LABS: INTERNATIONAL NORMALIZED RATIO 1.3 RATIO; PROTHROMBIN TIME - PATIENT 13.4 SEC (9.8-11.6)
--- NOTE | 2017-04-12 15:26 | HHI.GIFU ---
Subjective Remarks Patient is very pale, ventilated, sedation being used but nonresponsive Heart rate waxing and waning in between 50s in the 80s Crash cart has been placed in the room Patient continues to be critically ill Family in room Objective Vitals I&O Vital Signs Date Time Temp Pulse Resp B/P (MAP) Pulse Ox O2 Delivery O2 Flow Rate FiO2 04/12/17 14:00 57 04/12/17 12:00 50 04/12/17 12:00 59 04/12/17 12:00 99.1 59 16 146/65 (92) 100 173/60 (97) 04/12/17 11:30 100 50 04/12/17 11:01 99.0 62 16 135/69 (91) 100 168/61 (96) 04/12/17 10:31 166 61/70 04/12/17 10:11 64 170/59 04/12/17 10:00 66 04/12/17 10:00 99.1 66 17 106/59 (75) 100 162/63 (96) 04/12/17 09:12 75 04/12/17 09:11 150 04/12/17 09:10 151 04/12/17 09:09 138 04/12/17 09:08 150 04/12/17 09:08 99.0 150 16 70/30 (43) 94 76/45 (55) 04/12/17 09:07 150 04/12/17 09:06 150 04/12/17 09:05 75 04/12/17 09:01 99.0 74 16 122/60 (80) 97 144/51 (82) 04/12/17 09:00 99.0 79 17 143/52 (82) 98 04/12/17 08:37 98.8 75 16 141/67 (91) 99 168/49 (88) 04/12/17 08:10 100 40 04/12/17 08:01 98.6 79 18 146/65 (92) 99 160/50 (86) 04/12/17 08:00 82 04/12/17 08:00 50 04/12/17 08:00 98.6 82 18 155/52 (86) 98 04/12/17 06:52 78 129/45 04/12/17 06:51 69 127/42 04/12/17 06:00 87 04/12/17 05:52 83 157/47 04/12/17 05:37 71 163/48 04/12/17 05:37 77 161/44 04/12/17 05:37 77 161/44 04/12/17 05:28 69 174/39 04/12/17 05:10 69 147/46 04/12/17 05:00 70 159/46 04/12/17 04:08 96 40 04/12/17 04:00 66 04/12/17 04:00 40 04/12/17 04:00 97.3 66 17 138/63 (88) 95 156/41 (79) 04/12/17 03:58 65 157/42 04/12/17 03:50 66 165/38 04/12/17 03:44 71 172/40 04/12/17 03:39 65 178/44 04/12/17 03:31 77 179/43 04/12/17 03:29 75 177/46 04/12/17 03:28 64 179/46 04/12/17 03:26 72 187/49 04/12/17 03:15 74 184/50 04/12/17 03:10 66 189/50 04/12/17 03:05 63 182/77 04/12/17 02:57 64 188/44 04/12/17 02:57 64 188/44 04/12/17 02:06 53 130/36 04/12/17 02:00 54 04/12/17 01:53 55 146/38 04/12/17 01:52 54 146/38 04/12/17 01:12 54 147/36 04/12/17 00:03 100 40 04/12/17 00:01 96.1 53 16 137/65 (89) 98 141/41 (74) 04/12/17 00:00 40 04/12/17 00:00 53 04/11/17 23:01 53 135/39 04/11/17 22:47 53 141/41 04/11/17 22:37 55 149/43 04/11/17 22:20 57 147/45 04/11/17 22:00 57 04/11/17 21:59 57 158/45 04/11/17 21:05 59 171/45 04/11/17 20:45 98 40 04/11/17 20:38 60 173/45 04/11/17 20:12 60 175/50 04/11/17 20:01 97.5 60 16 139/63 (88) 97 172/49 (90) 04/11/17 20:00 40 04/11/17 20:00 60 04/11/17 19:39 60 170/49 04/11/17 19:39 60 170/49 04/11/17 19:39 60 170/49 04/11/17 19:38 60 173/48 04/11/17 19:29 59 167/47 04/11/17 18:00 60 04/11/17 18:00 59 142/40 04/11/17 18:00 59 135/39 04/11/17 17:00 58 154/43 04/11/17 16:00 99.5 62 16 91/53 (66) 96 142/46 (78) 04/11/17 16:00 62 04/11/17 16:00 40 04/11/17 15:32 96 40 I/O 04/11/17 04/11/17 04/11/17 04/12/17 04/12/17 04/12/17 07:00 15:00 23:00 07:00 15:00 23:00 Intake Total 1752 ml 1850 ml 1885.0 ml 2149.3 ml 309 ml Output Total 123 ml 160 ml 240 ml Balance 1629 ml 1850 ml 1725.0 ml 1909.3 ml 309 ml Intake IV Total 1752 ml 1850 ml 1885.0 ml 2149.3 ml 6 ml Platelets 223 ml Blood Product IV Normal Saline Flush 80 ml Output Urine Total 123 ml 10 ml 65 ml Gastric Drainage Total 150 ml 175 ml # Bowel Movements 2 Laboratory Laboratory Tests Test 04/11/17 16:00 04/11/17 16:25 04/12/17 03:00 04/12/17 03:35 Hemoglobin 8.6 8.6 Hematocrit 26.3 26.1 Potassium Level 3.5 3.0 Blood Gas Puncture Site ART LINE ART LINE Blood Gas Patient Temperature 98.6 98.6 Blood Gas HCO3 16 16 Blood Gas Base Excess -12.0 -10.8 Blood Gas Oxygen Saturation 93 93 Arterial Blood pH 7.09 7.19 Arterial Blood Partial Pressure CO2 56 44 Arterial Blood Partial Pressure O2 92 91 Arterial Blood Oxygen Content 11.0 10.4 Arterial Blood Carboxyhemoglobin 0.1 0.5 Arterial Blood Methemoglobin 2.9 2.6 Blood Gas Hemoglobin 8.3 7.8 Oxygen Delivery Device VENTILATOR VENTILATOR Blood Gas Ventilator Setting 600/16/5PEEP VOLUME AC Blood Gas Inspired Oxygen 40 40 White Blood Count 4.5 Red Blood Count 3.03 Mean Corpuscular Volume 86.2 Mean Corpuscular Hemoglobin 28.5 Mean Corpuscular Hemoglobin Concent 33.0 Red Cell Distribution Width 17.9 Platelet Count 47 Mean Platelet Volume 9.5 CBC Comment AUTO DIFF Differential Total Cells Counted 100 Neutrophils % (Manual) 59 Band Neutrophils % 26 Lymphocytes % 8 Monocytes % 6 Neutrophils # (Manual) 3.9 Metamyelocytes 1 Nucleated Red Blood Cells 5 Differential Comment FINAL DIFF MANUAL Platelet Estimate LOW Platelet Morphology Comment NORMAL Stafford Cells 1+ Crenated Cell 1+ Acanthocytes 1+ Blood Urea Nitrogen 51 Creatinine 3.30 Random Glucose 215 Total Protein 4.2 Albumin 1.1 Calcium Level 5.7 Phosphorus Level 5.4 Magnesium Level 1.2 Alkaline Phosphatase 79 Aspartate Amino Transf (AST/SGOT) 98 Alanine Aminotransferase (ALT/SGPT) 32 Total Bilirubin 0.5 Sodium Level 133 Chloride Level 99 Carbon Dioxide Level 19.1 Anion Gap 15 Estimat Glomerular Filtration Rate 18 Protein Corrected Calcium 7.0 Test 04/12/17 05:29 04/12/17 13:46 04/12/17 14:00 Blood Gas Puncture Site ART LINE ART LINE Blood Gas Patient Temperature 98.6 98.6 Blood Gas HCO3 16 19 Blood Gas Base Excess -10.3 -6.7 Blood Gas Oxygen Saturation 94 94 Arterial Blood pH 7.20 7.27 Arterial Blood Partial Pressure CO2 44 43 Arterial Blood Partial Pressure O2 118 152 Arterial Blood Oxygen Content 10.7 9.9 Arterial Blood Carboxyhemoglobin 0.4 0.5 Arterial Blood Methemoglobin 2.9 2.8 Blood Gas Hemoglobin 8.0 7.2 Oxygen Delivery Device VENTILATOR VENTILATOR Blood Gas Ventilator Setting VOLUME AC Blood Gas Inspired Oxygen 40 50 Prothrombin Time 13.4 Prothromb Time International Ratio 1.3 Fibrinogen 233 Lactic Acid Level 1.8 Date/Time Source Procedure Growth Status 04/10/17 10:00 Blood Peripheral Aerobic Blood Culture - Final Streptococcus Pneumoniae Complete 04/10/17 10:00 Anaerobic Blood Culture - Final Streptococcus Pneumoniae Complete 04/10/17 13:00 Nasal Washing Influenza Types A,B Antigen (CHRISTO) - Final NEGATIVE FOR FLU A AND B ANTIGEN.... Complete 04/10/17 11:30 Urine Catheterized Urine Legionella Antigen - Final PRESUMPTIVE NEGATIVE FOR LEGIONELLA P... Complete 04/10/17 11:30 Urine Catheterized Urine Streptococcus pneumoniae Antigen (M - Final PRESUMPTIVE NEGATIVE FOR STREPTOCOCCU... Complete Imaging Last Impressions Chest X-Ray 04/12/17 0600 Signed Impressions: Service Date/Time: April 03:08 - CONCLUSION: Slight progression in the bilateral pleural effusions and bilateral pulmonary infiltrates. Blaze Del Valle Jr., MD Abdomen Ultrasound 04/12/17 0000 Signed Impressions: Service Date/Time: April 09:23 - CONCLUSION: 1. 8 cm cystic mass posterior to the right kidney which may reflect abscess or hematoma. This would be accessible to percutaneous biopsy. 2. Chronic pancreatitis 3. Mild ascites 1. Theo Sanabria MD Head CT 04/10/17 0000 Signed Impressions: Service Date/Time: Monday, April 10, 2017 09:20 - CONCLUSION: Unremarkable study. Eduard Pillai MD Abdomen/Pelvis CT 04/10/17 0000 Signed Impressions: Service Date/Time: Monday, April 10, 2017 09:20 - CONCLUSION: 1. The right lung base consolidation not present previously characteristic of pneumonia possibility of aspiration should be entertained in the appropriate clinical setting. 2. Bladder stone. 3. The previously seen right perinephric well- defined hemorrhage has not significantly changed and the patient has undergone embolization since that time. 4. The fluid collection which is well defined within the psoas muscle has increased in size slightly may represent retroperitoneal hemorrhages evolving and could be followed. 5. Retroperitoneal lymph nodes are similar not changed since 11/2016. Eduard Pillai MD Physical Exam HEENT: Pupils round and reactive to light responds very weakly, frail, very pale ventilator NECK: Neck is supple, CHEST: Chest is diminished sounds no active rhonchi CARDIAC: rhythm 50s to the 80s irregular ABDOMEN: NG tube to low intermittent suction, flat, nontender; no hepatosplenomegaly; bowel sounds absent, abdomen soft EXTREMITIES: No clubbing, cyanosis, or edema. SKIN: Pale BAKER APPRENTICE: Sedated, weakened Assessment and Plan Plan ASSESSMENT - anemia, heme pos stool - hgb 8.9 on admission, had drop to 7.8., now stable at 8.6. No active rectal bleed. CT showed poss PNA, no change right perinephric hemorrhage since embolization , poss retroperitoneal hemorrhage. was on coumadin but has not had in few days. EGD 01/29/17 found peptic duodenitis; colonoscopy 01/29/17 showed innumerable med sessile polyps ascending colon, 2 x sessile polyps transverse colon, rec to rpt cscope in 2m. INR 1.6 today, was on coumadin but has not had in past few days. d/w CCM, not stable for procedures at this time, cannot place NGT or OGT to assess for UGIB - retroperitoneal hemorrhage per CT as above Patient's heart rate is irregular slowing in the 50s to the 80s. Staff is placed crash cart in his room Labs show LFTs 98/32 . Probable due to some hypotension and shock liver. Patient is requiring meds to sustain blood pressure Children are in the room and realize the seriousness of his condition, remains very critical PLAN - Initially EGD +/- colonoscopy, was evaluated for patient if and when he became more stable, but at this point patient remains critically ill. No procedures in the near future unless he makes a turn around - monitor labs - transfuse as needed - hold coumadin - Monitor for any bleeding or diarrhea - Plan a care will be based on patient's response to treatment regimen GI will continue to follow but only as needed since patient's condition appears to be declining. Please call for improvements THis pt seen by myself and Dr Godoy and this note is written on his behalf La Nicole Apr 12, 2017 15:26
--- NOTE | 2017-04-12 16:02 | PD.WCN.NOT ---
Wound Consult Description: Consult for sacral/gluteal cleft wounds per Dr Arroyo Communicated with: MARIUSZ Sharma Recommendation: Please vocera front desk worker when patient is stable for visualization of sacral wound. When patient is stable please reposition from left to right sides Q2H to relieve pressure from sacrum. Additional Information: Attempted to see patient on [facility] for sacral wound. Per MARIUSZ Sharma patient is unable to be turned at this time. Wound Care following patient closely. Mariann Deutsch [facility] Apr 12, 2017 16:02
[2017-04-12 16:11] LABS: BICARBONATE 23.5 MEQ/L (21.0-32.0); CALCIUM 5.5 MG/DL (8.5-10.1); CREATININE 3.31 MG/DL (0.60-1.30); MAGNESIUM 1.5 MG/DL (1.5-2.5)
[2017-04-12 16:38] LABS: CALCIUM-PROTEIN CORRECTED 6.9 MG/DL (8.5-10.1)
[2017-04-12] MEDS: PHENYLEPHRINE INJ 160 MG in DEXTROSE 5% IN WATE 500 ML INJ 484 ML IV PRN ×2 (16:38)
--- NOTE | 2017-04-12 17:20 | PD.ID.CON ---
History of Present Illness Service ID Consult Requested By Dr Tanika Arroyo Reason for Consult Bactermias, shock Primary Care Physician [facility] Diagnoses: History of Present Illness pt is a 71 yo tobacco + male with a very complicated past medical history His sons are at the bedside and have some knowledge about his past med problems but most of it obtained thru chart review of numerous previous admissions He is sp recent retroperiotoneal bleed sp embolisation He apparently got sick around [place] according to his sons when they notice excessive sleepiness and feverishness They also reported diarrhea Sons also reported to me that he has chronic sands for months, but could not give details why They said that he has some "kidney issue' They brought him in 2 days ago with the above symptoms that keep getting worse On presentation pt has MS change, hypotension and hypoxia His CT of the abdomen and pelvis showed unchanged 8.5 cm in the right midpole of the kidney however there is a fluid collection well-defined in the psoas muscle area. Pt was fluid resuscitated and started on Zosyn and vancomycin. He was noted to have significantly elevated creatinine with the BUN of 52 On arrival to the ICU the patient was emergently intubated , secondary to unresponsiveness, and started on multiple pressors which he remains on, with Levaphed dose up to 14 mics, as well as neosynephirine, vasopressin He developped significant bradicardia today . Persistent bandemia, cultures growing STREPTOCOCCUS PNEUMONIAE with OXACILLIN RESISTANCE. UA with pyuria, hematuria, urine culture positive for E.coli cipro R He is practically anuric Remains very hemodynamically unstable his CT scan was cancelled Plts are going down to < 50 today Flu /Leg /strep pneumo tests were all negative Chest xray today showed Slight progression in the bilateral pleural effusions and bilateral pulmonary infiltrates He remains on FiO2 of 50 %, PEEP 5 Review of Systems ROS Limitations: Clinical Condition, Intoxication, Altered Mental Status, Unresponsive Past Family Social History Allergies: Coded Allergies: No Known Allergies (Verified Allergy, Unknown, 03/31/17) Past Medical History A. fib, n on chronic anticoagulation therapy with coumadin. AAA, anxiety, CAD, CHF, COPD, chronic sands CKD, DM, anemia Past Surgical History perinephric hematoma s/p IR embolization Active Ordered Medications Medications where reviewed in EMR Antibiotics Include: azithro levaquine zosyn vancomycin: started 1/4 Family History reviewed non contributory Social History + Tobacco. 2 PPD No current ETOH. H/o remote use No Illicit Drugs. Physical Exam Vital Signs Vital Signs Date Time Temp Pulse Resp B/P (MAP) Pulse Ox O2 Delivery O2 Flow Rate FiO2 04/12/17 15:38 100 50 04/12/17 14:00 57 04/12/17 12:00 50 04/12/17 12:00 59 04/12/17 12:00 99.1 59 16 146/65 (92) 100 173/60 (97) 04/12/17 11:30 100 50 04/12/17 11:01 99.0 62 16 135/69 (91) 100 168/61 (96) 04/12/17 10:31 166 61/70 04/12/17 10:11 64 170/59 04/12/17 10:00 66 04/12/17 10:00 99.1 66 17 106/59 (75) 100 162/63 (96) 04/12/17 09:12 75 04/12/17 09:11 150 04/12/17 09:10 151 04/12/17 09:09 138 04/12/17 09:08 150 04/12/17 09:08 99.0 150 16 70/30 (43) 94 76/45 (55) 04/12/17 09:07 150 04/12/17 09:06 150 04/12/17 09:05 75 04/12/17 09:01 99.0 74 16 122/60 (80) 97 144/51 (82) 04/12/17 09:00 99.0 79 17 143/52 (82) 98 04/12/17 08:37 98.8 75 16 141/67 (91) 99 168/49 (88) 04/12/17 08:10 100 40 04/12/17 08:01 98.6 79 18 146/65 (92) 99 160/50 (86) 04/12/17 08:00 82 04/12/17 08:00 50 04/12/17 08:00 98.6 82 18 155/52 (86) 98 04/12/17 06:52 78 129/45 04/12/17 06:51 69 127/42 04/12/17 06:00 87 04/12/17 05:52 83 157/47 04/12/17 05:37 71 163/48 04/12/17 05:37 77 161/44 04/12/17 05:37 77 161/44 04/12/17 05:28 69 174/39 04/12/17 05:10 69 147/46 04/12/17 05:00 70 159/46 04/12/17 04:08 96 40 04/12/17 04:00 66 04/12/17 04:00 40 04/12/17 04:00 97.3 66 17 138/63 (88) 95 156/41 (79) 04/12/17 03:58 65 157/42 04/12/17 03:50 66 165/38 04/12/17 03:44 71 172/40 04/12/17 03:39 65 178/44 04/12/17 03:31 77 179/43 04/12/17 03:29 75 177/46 04/12/17 03:28 64 179/46 04/12/17 03:26 72 187/49 04/12/17 03:15 74 184/50 04/12/17 03:10 66 189/50 04/12/17 03:05 63 182/77 04/12/17 02:57 64 188/44 04/12/17 02:57 64 188/44 04/12/17 02:06 53 130/36 04/12/17 02:00 54 04/12/17 01:53 55 146/38 04/12/17 01:52 54 146/38 04/12/17 01:12 54 147/36 04/12/17 00:03 100 40 04/12/17 00:01 96.1 53 16 137/65 (89) 98 141/41 (74) 04/12/17 00:00 40 04/12/17 00:00 53 04/11/17 23:01 53 135/39 04/11/17 22:47 53 141/41 04/11/17 22:37 55 149/43 04/11/17 22:20 57 147/45 04/11/17 22:00 57 04/11/17 21:59 57 158/45 04/11/17 21:05 59 171/45 04/11/17 20:45 98 40 04/11/17 20:38 60 173/45 04/11/17 20:12 60 175/50 1/3/18 20:01 97.5 60 16 139/63 (88) 97 172/49 (90) 04/11/17 20:00 40 04/11/17 20:00 60 04/11/17 19:39 60 170/49 04/11/17 19:39 60 170/49 04/11/17 19:39 60 170/49 04/11/17 19:38 60 173/48 04/11/17 19:29 59 167/47 04/11/17 18:00 60 04/11/17 18:00 59 142/40 04/11/17 18:00 59 135/39 04/11/17 17:00 58 154/43 Physical Exam CONSTITUTIONAL/GENERAL: This is an ekderly adequately nourished patient, in no apparent distress. Orally intubated, on mech vent'n TUBES/LINES/DRAINS: SKIN: No jaundice, rashes, or lesions Skin temperature appropriate. Not diaphoretic. HEAD: Atraumatic. Normocephalic. EYES: Pupils equal and round and reactive. Extraocular motions intact. No scleral icterus. No injection or drainage. Fundi not examined. ENT: Hearing not tested Nose without bleeding or purulent drainage. Throat without visible erythema, exudates, masses, or lesions. Edentulous NECK: Trachea midline. Supple, nontender. CARDIOVASCULAR: Regular rate and rhythm without murmurs, gallops, or rubs. No JVD. Peripheral pulses symmetric. Adequate refill RESPIRATORY/CHEST: Symmetric, unlabored respirations. Scattered rhonchi to auscultation. Breath sounds equal bilaterally. No wheezes, rales, or rhonchi. GASTROINTESTINAL: Abdomen soft, non-tender, nondistended. No hepato-splenomegaly , or palpable masses. No guarding. Bowel sounds present. GENITOURINARY: Without palpable bladder distension. Sands catheter in place with small amount o f cloudy urine MUSCULOSKELETAL: Extremities without clubbing, minimal toes cyanosis, or edema. No joint tenderness or effusion noted. No calf tenderness. No mottling or clubbing. LYMPHATICS: No palpable cervical or supraclavicular adenopathy. NEUROLOGICAL: Sedated. Unresponsive. Not follows commands. PSYCHIATRIC: unable to assess Laboratory Laboratory Tests Test 04/12/17 03:00 04/12/17 03:35 1/4/18 05:29 04/12/17 13:46 Blood Gas Puncture Site ART LINE ART LINE Blood Gas Patient Temperature 98.6 98.6 Blood Gas HCO3 16 16 Blood Gas Base Excess -10.8 -10.3 Blood Gas Oxygen Saturation 93 94 Arterial Blood pH 7.19 7.20 Arterial Blood Partial Pressure CO2 44 44 Arterial Blood Partial Pressure O2 91 118 Arterial Blood Oxygen Content 10.4 10.7 Arterial Blood Carboxyhemoglobin 0.5 0.4 Arterial Blood Methemoglobin 2.6 2.9 Blood Gas Hemoglobin 7.8 8.0 Oxygen Delivery Device VENTILATOR VENTILATOR Blood Gas Ventilator Setting VOLUME AC VOLUME AC Blood Gas Inspired Oxygen 40 40 White Blood Count 4.5 Red Blood Count 3.03 Hemoglobin 8.6 Hematocrit 26.1 Mean Corpuscular Volume 86.2 Mean Corpuscular Hemoglobin 28.5 Mean Corpuscular Hemoglobin Concent 33.0 Red Cell Distribution Width 17.9 Platelet Count 47 Mean Platelet Volume 9.5 CBC Comment AUTO DIFF Differential Total Cells Counted 100 Neutrophils % (Manual) 59 Band Neutrophils % 26 Lymphocytes % 8 Monocytes % 6 Neutrophils # (Manual) 3.9 Metamyelocytes 1 Nucleated Red Blood Cells 5 Differential Comment FINAL DIFF MANUAL Platelet Estimate LOW Platelet Morphology Comment NORMAL Lily Cells 1+ Crenated Cell 1+ Acanthocytes 1+ Blood Urea Nitrogen 51 Creatinine 3.30 Random Glucose 215 Total Protein 4.2 Albumin 1.1 Calcium Level 5.7 Phosphorus Level 5.4 Magnesium Level 1.2 Alkaline Phosphatase 79 Aspartate Amino Transf (AST/SGOT) 98 Alanine Aminotransferase (ALT/SGPT) 32 Total Bilirubin 0.5 Sodium Level 133 Potassium Level 3.0 Chloride Level 99 Carbon Dioxide Level 19.1 Anion Gap 15 Estimat Glomerular Filtration Rate 18 Protein Corrected Calcium 7.0 Prothrombin Time 13.4 Prothromb Time International Ratio 1.3 Fibrinogen 233 Lactic Acid Level 1.8 Test 04/12/17 14:00 04/12/17 14:45 Blood Gas Puncture Site ART LINE Blood Gas Patient Temperature 98.6 Blood Gas HCO3 19 Blood Gas Base Excess -6.7 Blood Gas Oxygen Saturation 94 Arterial Blood pH 7.27 Arterial Blood Partial Pressure CO2 43 Arterial Blood Partial Pressure O2 152 Arterial Blood Oxygen Content 9.9 Arterial Blood Carboxyhemoglobin 0.5 Arterial Blood Methemoglobin 2.8 Blood Gas Hemoglobin 7.2 Oxygen Delivery Device VENTILATOR Blood Gas Ventilator Setting Blood Gas Inspired Oxygen 50 Blood Urea Nitrogen 52 Creatinine 3.31 Random Glucose 273 Calcium Level 5.5 Magnesium Level 1.5 Sodium Level 131 Potassium Level 3.3 Chloride Level 97 Carbon Dioxide Level 23.5 Anion Gap 11 Estimat Glomerular Filtration Rate 18 Date/Time Source Procedure Growth Status 04/10/17 10:00 Blood Peripheral Aerobic Blood Culture - Final Streptococcus Pneumoniae Complete 04/10/17 10:00 Anaerobic Blood Culture - Final Streptococcus Pneumoniae Complete 04/10/17 13:00 Nasal Washing Influenza Types A,B Antigen (CHRISTO) - Final NEGATIVE FOR FLU A AND B ANTIGEN.... Complete 04/10/17 11:30 Urine Catheterized Urine Legionella Antigen - Final PRESUMPTIVE NEGATIVE FOR LEGIONELLA P... Complete 04/10/17 11:30 Urine Catheterized Urine Streptococcus pneumoniae Antigen (M - Final PRESUMPTIVE NEGATIVE FOR STREPTOCOCCU... Complete Result Diagram: 04/12/17 0335 04/12/17 1445 Imaging Last Impressions Chest X-Ray 04/12/17 0600 Signed Impressions: Service Date/Time: April 03:08 - CONCLUSION: Slight progression in the bilateral pleural effusions and bilateral pulmonary infiltrates. Blaze Del Valle Jr., MD Abdomen Ultrasound 04/12/17 0000 Signed Impressions: Service Date/Time: April 09:23 - CONCLUSION: 1. 8 cm cystic mass posterior to the right kidney which may reflect abscess or hematoma. This would be accessible to percutaneous biopsy. 2. Chronic pancreatitis 3. Mild ascites 1. Theo Sanabria MD Head CT 04/10/17 0000 Signed Impressions: Service Date/Time: Monday, April 10, 2017 09:20 - CONCLUSION: Unremarkable study. K. Lio Pillai MD Abdomen/Pelvis CT 04/10/17 0000 Signed Impressions: Service Date/Time: Monday, April 10, 2017 09:20 - CONCLUSION: 1. The right lung base consolidation not present previously characteristic of pneumonia possibility of aspiration should be entertained in the appropriate clinical setting. 2. Bladder stone. 3. The previously seen right perinephric well- defined hemorrhage has not significantly changed and the patient has undergone embolization since that time. 4. The fluid collection which is well defined within the psoas muscle has increased in size slightly may represent retroperitoneal hemorrhages evolving and could be followed. 5. Retroperitoneal lymph nodes are similar not changed since 11/2016. Eduard Pillai MD Assessment and Plan Assessment and Plan Acute PNA, CAP Invasive pneumococcal disease, sepsis, bacteremia due to MDRO Strep pneumo Complicated E.coli UTI in the settings of chronic sands sands changed on 04/10 Unspecified obstructive uropathy ARF on CKD Sepsis with multi organ failure including ARF, refractory hypotension, bradycardia, acute VDRF and encephalopathy Critically ill and unstable MS change ? meningitis vs sepsis cont azithromycin cont vancomycin (ASP: MDRO Strep pneumo) dc Levaquine cont zosyn for the UTI, will change to cephalosporin after susceptibilities available consider LP when stable ., o/w will tx with Rx covering for meningitis isolation repeat BC 2 D echo Discussed Condition With MARIUSZ berry @ bedside microlab Ashley Haro MD Apr 12, 2017 17:20
[2017-04-12] MEDS ORDERED: TERBUTALINE INJ 1 MG/ML AMP SQ PRN (20:00)
[2017-04-12] MEDS ORDERED: EPINEPHrine (1:1000) INJ 2 MG in DEXTROSE 5% IN WATER INJ 250 ML IV PRN ×2 (20:00)
[2017-04-13] VITALS (28 sets, daily range): BP systolic 91–159; BP diastolic 51–92; PULSE 52–96; RESP 7–20; TEMP 97.9; O2SAT 92–100
[2017-04-13] MEDS: PANTOPRAZOLE INJ 80 MG in SODIUM CHLORIDE 0.9% INJ 100 ML IV SCH ×3 (00:04→18:10)
[2017-04-13] MEDS: SODIUM BICARBONATE 8.4% INJ 150 MEQ in DEXTROSE 5% IN WATE 1000ML INJ 850 ML IV SCH ×4 (00:08→08:31)
[2017-04-13] MEDS ORDERED: AMIODARONE IV PRN (00:30)
[2017-04-13] MEDS ORDERED: NS IV PRN (00:30)
[2017-04-13] MEDS: PIPERACIL-TAZO 3.375 GM PREMIX 50 ML IV SCH ×3 (03:20→15:28)
[2017-04-13] MEDS: CHLORHEXIDINE GLUCONATE 2 % 1 PACK (2 CLOTHS) TOP SCH (03:20)
[2017-04-13] MEDS: HYDROCORTISONE SOD SUCCINATE 100 MG VIAL IV PUSH SCH ×3 (05:10→20:21)
--- NOTE | 2017-04-13 06:07 | RADRPT ---
EXAM DATE/TIME: 04/13/2017 04:55 [place] COMPARISON: CHEST SINGLE AP, April 12, 2017, 3:08. INDICATIONS : Evalaute for respiratory failure. MEDICAL HISTORY : None. SURGICAL HISTORY : None. ENCOUNTER: Initial ACUITY: 4 - 6 days PAIN SCORE: Non-responsive. LOCATION: chest FINDINGS: 2 AP views of the chest. Aortic stent again seen. Endotracheal tube, nasogastric tube, and right IJ c entral venous catheter remain in place. No change in bilateral pulmonary opacity and small bilateral pleural effusions. CONCLUSION: No significant interval change. Jorden Mckeon MD on April 13, 2017 at 6:04 Board Certified Radiologist. This report was verified electronically.
[2017-04-13 07:08] LABS: HEMATOCRIT 21.1 % (39.0-51.0); HEMOGLOBIN 7.4 GM/DL (13.0-17.0); MEAN CELL VOLUME 83.6 FL (80.0-100.0); MEAN CORPUSCULAR HEMOGLOBIN 29.2 PG (27.0-34.0); MEAN PLATELET VOLUME 10.2 FL (7.0-11.0); PLATELET COUNT 40 TH/MM3 (150-450); RED BLOOD COUNT 2.52 MIL/MM3 (4.50-5.90); RED CELL DISTRIBUTION WIDTH 17.4 % (11.6-17.2); WHITE BLOOD COUNT 10.9 TH/MM3 (4.0-11.0)
[2017-04-13 07:29] LABS: BICARBONATE 23.8 MEQ/L (21.0-32.0); CALCIUM 5.3 MG/DL (8.5-10.1); CREATININE 3.33 MG/DL (0.60-1.30); MAGNESIUM 1.5 MG/DL (1.5-2.5); PHOSPHORUS 4.3 MG/DL (2.5-4.9); RANDOM VANCOMYCIN 22.6 COMMENT
[2017-04-13 07:58] LABS: CALCIUM-PROTEIN CORRECTED 6.6 MG/DL (8.5-10.1)
[2017-04-13] MEDS: INSULIN ASPART SUPPLEMENTAL SCALE SQ SCH ×4 (08:00→20:10)
[2017-04-13] MEDS: fentaNYL DRIP 250 ML IV PRN (08:32)
[2017-04-13] MEDS: SODIUM CHLORIDE 0.9% FLUSH 10 ML FLUSH IV FLUSH SCH ×2 (08:33→20:01)
[2017-04-13] MEDS: DOCUSATE SODIUM 50 MG/SENNA 8.6 MG TAB PO SCH ×2 (08:34→19:45)
[2017-04-13] MEDS: FAMOTIDINE 20 MG TAB PO SCH ×2 (08:34→20:01)
--- NOTE | 2017-04-13 11:08 | HHI.NPPN ---
Subjective History of Present Illness 71-year-old male with history of chronic kidney disease, now with acute renal failure, multiorgan failure, septic and hemorrhagic shock Objective Data Data Vital Signs Date Time Temp Pulse Resp B/P (MAP) Pulse Ox O2 Delivery O2 Flow Rate FiO2 04/13/17 10:30 99 50 04/13/17 08:25 100 50 04/13/17 08:00 50 04/13/17 08:00 60 04/13/17 06:00 56 04/13/17 04:10 100 50 04/13/17 04:00 98.2 62 20 130/58 (82) 95 143/65 (91) 04/13/17 04:00 50 04/13/17 04:00 62 04/13/17 02:00 52 04/13/17 00:29 55 150/60 04/13/17 00:00 96.8 53 16 142/85 (104) 100 158/69 (98) 04/13/17 00:00 50 04/13/17 00:00 53 04/12/17 23:14 100 50 04/12/17 22:00 53 04/12/17 20:00 52 04/12/17 20:00 98.4 52 16 121/60 (80) 100 141/61 (87) 04/12/17 20:00 50 04/12/17 19:57 100 50 04/12/17 18:08 51 109/51 04/12/17 18:00 51 04/12/17 16:38 55 134/52 04/12/17 16:00 99.5 54 16 112/59 (76) 100 145/55 (85) 04/12/17 16:00 50 04/12/17 16:00 54 04/12/17 15:38 100 50 04/12/17 15:00 99.9 61 18 122/70 (87) 100 151/59 (89) 04/12/17 14:00 57 04/12/17 14:00 99.7 57 16 120/64 (82) 100 141/58 (85) 04/12/17 13:00 99.5 58 16 130/61 (84) 100 170/59 (96) 04/12/17 12:00 50 04/12/17 12:00 59 04/12/17 12:00 99.1 59 16 146/65 (92) 100 173/60 (97) 04/12/17 11:30 100 50 -: 04/13/17 0520 04/13/17 0520 Microbiology 04/12/17 Aerobic Blood Culture, Received Pending 04/12/17 Anaerobic Blood Culture, Received Pending 04/12/17 Aerobic Blood Culture, Received Pending 04/12/17 Anaerobic Blood Culture, Received Pending Physical Exam General Appearance: Pale Neck Neck Exam: Neck Supple Pulmonary Resp Exam: Clear Bilaterally Cardiology CV Exam: Regular, Normal Sinus Rhythm Gastrointestinal/Abdomen GI Exam: Soft, Non-Tender Extremeties Extremities Exam: No Edema Assessment/Plan Problem List: (1) Acute renal failure ICD Codes: N17.9 - Acute kidney failure, unspecified Status: Acute Plan: Patient appears to have acute tubular necrosis Oliguria Multiorgan failure Severe acidosis Hemorrhagic and septic shock On vasopressors retro peritoneal bleed Poor prognosis Cr higher bat 3.3 Mg replace Ca replaced Continue supportive care urine output remains low Ecoli UTI Strep Pneumoniae sepsis (2) Metabolic acidosis ICD Codes: E87.2 - Acidosis Plan: On bicarbonate (3) Hemorrhagic shock ICD Codes: R57.8 - Other shock Plan: Monitor hemoglobin may need transfusion (4) Septic shock ICD Codes: A41.9 - Sepsis, unspecified organism; R65.21 - Severe sepsis with septic shock Plan: On antibiotic Levaquin, Zosyn and Zithromax (5) Acute blood loss anemia ICD Codes: D62 - Acute posthemorrhagic anemia Status: Resolved Plan: As above (6) Sepsis ICD Codes: A41.9 - Sepsis, unspecified organism Status: Acute Problem Qualifiers (1) Sepsis: Qualified Codes: A41.9 - Sepsis, unspecified organism Cecilio Howard MD Apr 13, 2017 11:08
[2017-04-13] MEDS ORDERED: MAGNESIUM SULFATE 1 GM PREMIX 100 ML IV ONE (11:15)
[2017-04-13] MEDS ORDERED: CALCIUM GLUCONATE INJ 2 GM in SODIUM CHLORIDE 0.9% INJ 100 ML IV ONE (12:00)
[2017-04-13] MEDS: AZITHROMYCIN INJ 500 MG in SODIUM CHLOR 0.9% 250 ML INJ 250 ML IV SCH (13:01)
[2017-04-13] MEDS ORDERED: AMIODARONE 200 MG TAB PO SCH (14:45)
[2017-04-13] MEDS ORDERED: RESP: ALBUTEROL 2.5 MG/IPRATROPIUM 0.5 MG NEB (PRN) NEB (14:45)
[2017-04-13] MEDS: RESP: ALBUTEROL 2.5 MG/IPRATROPIUM 0.5 MG NEB (SCH) NEB ×2 (15:04→21:59)
--- NOTE | 2017-04-13 15:48 | HHI.CCPN ---
Subjective Remarks/Hospital Course This is a 71-year-old male that presented to the ED for altered mental status. The patient's past medical history is significant for A. fib and the patient is on on chronic anticoagulation therapy with coumadin. The patient's past medical history also includes AAA, anxiety, CAD, CHF, COPD, CKD, DM, anemia presents to the ED . Per EMS report, the patient initially responded to the call for SOB but upon arrival, pt was found to be hypotensive. The family reported altered mental status, upon presentation to the ED the patient is AAOx2 and states that his right side hurts. The patient has not eaten or taken any meds for over 48 hours and then the family reportedly gave all his meds last night at 2100 .He was admitted 02/28-03/20/17 for GI bleed and had panendoscopy that showed no active bleeding but has peptic duodenitis, and underwent IR embolization for perinephric hemorrhage at that time. Pt also had perinephric hematoma s/p IR embolization and had HCAP. Pt was discharge from rehab about 1 week ago inability to ambulate. He does complain of black stool when asked. Laboratory and imaging studies were performed in the ED which showed 12% bandemia, patient previously hospitalized at recent discharge 2016 with right lower lobe pneumonia, and positive Hemoccult 02/2017, as well as this admission. Imaging studies revealed increase in a fluid collection which may have be human resources hr representative of retroperitoneal hemorrhage. The patient's previous hospitalization revealed a spine obtained hemorrhage of the right mid pole kidney 6.5 cm the head increased to 8.[address] of the abdomen and pelvis today reveal no change in size of 8.5 cm in the right midpole of the kidney however there is a fluid collection well-defined in the psoas muscle area. Patient reportedly was hypotensive and received in the ED 2 L of normal saline, as well as Zosyn and vancomycin. Upon entering the patient's room in the ED the patient was noted to have blood pressures mid 90s/50s with a heart rate of 61 O2 saturation on 2 L was approximately 95%. The patient was noted to be lethargic, but easily arousable. Flow was noted to be 61 and the patient is receiving D50 one amp, the patient was noted to have significantly elevated creatinine with the BUN of 52 and currently receiving bolus of IV fluids. Subjective: 04/11: Afebrile .on arrival to the ICU the patient was emergently intubated , secondary to unresponsiveness, and required multiple pressors continues only Levophed,phenylephrine and vasopressin infusions. Patient continues on sodium bicarbonate infusion, with severe metabolic acidosis. Hemoglobin stabilize after 1 unit of PRBC's. Persistent bandemia, cultures revealed gram-positive cocci. ID consulted. 04/12: Afebrile. Last evening, the patient began to have episodes of sinus bradycardia requiring increasing doses of norepinephrine throughout the night currently at 20 mcgs, unable to be transported for CT of the abdomen and pelvis. The patient continues on multiple pressors at this time with continued metabolic acidosis. Microbiology results revealed urine gram-negative rods and gram-positive cocci bacteremia patient on broad-spectrum antibiotics ID has been consulted and awaiting recommendations. Patient's renal and hepatic function continues to decline. Ultrasound of abdomen ordered this a.m., 2/2 hemodynamic instability patient unable to have repeat CT scan of abdomen and pelvis last evening. Suitable electrolyte derangements early this a.m. currently being repleted. The patient went into A. fib RVR with a heart rate of 150, was bolused with amiodarone and currently on amiodarone infusion. 04/13: Afebrile. Metabolic acidosis resolved. A chin continues to be hyponatremic will continue to monitor, with electrolyte derangements. Phenylephrine has been discontinued. The patient continues on levo fed and vasopressin. NG tube has been clamped minimal output overnight approximately 50 cc of bilious secretions. GI has signed off because of the patient's hemodynamic instability will like to perform invasive procedures panendoscopy when patient becomes hemodynamically stable. Objective Vital Signs Date Time Temp Pulse Resp B/P (MAP) Pulse Ox O2 Delivery O2 Flow Rate FiO2 04/13/17 14:00 56 04/13/17 14:00 96.4 7 93/51 (65) 100 04/13/17 14:00 50 04/10/17 13:15 5.00 04/10/17 12:15 Nasal Cannula Intake and Output 04/13/17 04/13/17 04/14/17 08:00 16:00 00:00 Intake Total 1400 ml 5165 ml Output Total 175 ml Balance 1225 ml 5165 ml Result Diagram: 04/13/1720 04/13/17 0520 Other Results Laboratory Tests Test 04/13/17 05:11 Blood Gas Puncture Site ART LINE Blood Gas Patient Temperature 98.6 Blood Gas HCO3 22 mmol/L (22-26) Blood Gas Base Excess -3.0 mmol/L (-2-2) Blood Gas Oxygen Saturation 95 % (90-100) Arterial Blood pH 7.35 (7.380-7.420) Arterial Blood Partial Pressure CO2 41 mmHg (38-42) Arterial Blood Partial Pressure O2 160 mmHg (61-120) Arterial Blood Oxygen Content 10.3 Vol % (12.0-20.0) Arterial Blood Carboxyhemoglobin 0.4 % (0-4) Arterial Blood Methemoglobin 2.8 % (0-2) Blood Gas Hemoglobin 7.5 G/DL (12.0-16.0) Oxygen Delivery Device VENTILATOR Blood Gas Ventilator Setting VOLUME AC Blood Gas Inspired Oxygen 50 % Imaging Last Impressions Head CT 04/10/17 0000 Signed Impressions: Service Date/Time: Monday, April 10, 2017 09:20 - CONCLUSION: Unremarkable study. Eduard Pillai MD Chest X-Ray 04/10/17 0000 Signed Impressions: Service Date/Time: Monday, April 10, 2017 09:02 - CONCLUSION: 1. Diffuse infiltrates involving the right lung consistent with probable pneumonia. 2. Cardiomegaly. Storm Weiner MD Abdomen/Pelvis CT 04/10/17 0000 Signed Impressions: Service Date/Time: Monday, April 10, 2017 09:20 - CONCLUSION: 1. The right lung base consolidation not present previously characteristic of pneumonia possibility of aspiration should be entertained in the appropriate clinical setting. 2. Bladder stone. 3. The previously seen right perinephric well- defined hemorrhage has not significantly changed and the patient has undergone embolization since that time. 4. The fluid collection which is well defined within the psoas muscle has increased in size slightly may represent retroperitoneal hemorrhages evolving and could be followed. 5. Retroperitoneal lymph nodes are similar not changed since 11/2016. Eduard Pillai MD Objective Remarks Infusions Phenylephrine-off Norepinephrine 10mcgs/min Amiodarone 0.5mg/hr Vasopressin 0.04u/hr Fentanyl 100 mcgs/hr GENERAL: Critically ill-appearing malnourished, male intubated and sedated SKIN: Warm and dry. HEAD: Atraumatic. Normocephalic. EYES: Pupils equal and round. No scleral icterus. No injection or drainage. ENT: No nasal bleeding or discharge. Mucous membranes pink and dry. NECK: Trachea midline. No JVD. CARDIOVASCULAR: Normal rate, regular rhythm. RESPIRATORY: No accessory muscle use. Clear to auscultation. Breath sounds equal bilaterally. GASTROINTESTINAL: Abdomen soft, non-tender, nondistended. No guarding. MUSCULOSKELETAL: Extremities without clubbing, cyanosis, or edema. No obvious deformities. NEUROLOGICAL: Intubated and sedated RASS -2. Alert and oriented 2 No gross focal/sensory deficits. Not following commands but moving extremities x4 Urinary Catheter: Yes White insert reason: Measure Accurate Output Date of Insertion: Apr 10, 2017 Date of Insertion: Apr 10, 2017 Side: Right Location: Internal, Jugular A/P Assessment and Plan This is a 71-year-old debilitated critically ill-appearing male in septic shock with multisystem organ failure. Prognosis is guarded at this time. Plan by systems: Neurologic: Metabolic encephalopathy Neurochecks per ICU protocol ammonia level- 89-begin lactulose, follow-up trend Fentanyl infusion for sedation for ventilator synchrony Tylenol 650 mg every 6 hours when necessary for fever and/or pain Respiratory: Acute hypoxemic respiratory failure HCAP 04/10/17-emergently intubated a 8.0 ETT 24 cm at the lip Duo nebs every 4 hours when necessary for wheezing Ventilator bundle Sputum culture follow-up results Recently hospitalized with right lower lobe pneumonia on vancomycin and Zosyn and oxacillin which was discontinued 03/18/17 Cardiovascular: History of A. fib on chronic anticoagulation Coronary artery disease status post coronary stents 2, an aortic stent x2 History of CHF History of hypertension Cardiomegaly Septic shock A. fib RVR Patient continues on norepinephrine, phenylephrine, and vasopressin to maintain MAP > 65 Hold Coumadin in the setting of active bleeding -reportedly family states patient stopped Coumadin on 02/28/17. INR on admission 1.6 Initial troponin 0.03->0.31 04/10 EKG sinus bradycardia with first-degree AV block septal NV Vitamin K 10 mg 1 dose IV Transfuse FFP 1 unit Continue pravastatin 40 mg/day Repeat INR post transfusion-1.6 Last echo 02/03/16 EF 60-65% 04/11 ECHO- EF 60-65% No RWMA, Mod Pulm HTN- will consider Milrinone 04/12 amiodarone bolus with 1:1 conversion , 04/13 transition to PO amiodarone Renal: BPH Hold Flomax in the setting of hypotension Maintain White -- Strict I/Os FEN/GI: Acute kidney injury 2/2 hypotension Chronic kidney disease stage III Perinephric hemorrhage 8.5 cm Possible retroperitoneal hemorrhage Left renal cyst Urolithiasis Elevated BUN possibly secondary to active bleeding Metabolic acidosis Electrolyte derangement Severe protein calorie malnutrition GI bleed Fluid overload Chronic pancreatitis Ascites OGT clamped Patient Hemoccult positive this admission, Hemoccult positive last admission status post panendoscopy with benign findings GI signed off 04/13, plan to reinitiate consult when patient hemodynamically stable for probable panendoscopy Nephrology following Monitor BMP Hypocalcemia ,hypokalemia ,hypomagnesemia -repletion provided Zofran for nausea Albumin 1.1 1 amylase, lipase WNL Heme/ID: HCAP right lower lobe Septic shock with multiorgan system failure Pleural effusion Bandemia Acute blood loss anemia Thrombocytopenia Urosepsis Patient received Zosyn and vancomycin in the ED Initial lactic acid 1.3, monitor serial levels, bands 12% Continue to monitor CBC ID following-. Dr. Haro Antibiotic management per ID / Blood cultures- strep pneumo 1/-urine culture-E coli Follow-up sputum cultures / Legionella and pneumococcal antigen-negative 04/10- influenza antigen-negative 04/10 Transfuse 1 unit of packed red blood cells, 04/12 platelet count 47-transfuse 1 unit of platelets, maintain platelet count of 50,000 Obtain every 6 hours H&H's, obtain fibrinogen level, trend INR currently 1.6 04/[address] Sanabria , invasive radiology possible retroperitoneal hemorrhage, images reviewed states possibly an abscess versus retroperitoneal hemorrhage. Continue monitoring closely hemoglobin and hematocrit, declines plan for possible emergent intervention 04/12 US abdomen-chronic pancreatitis, 8 cm cystic mass posterior to right kidney abscess or hematoma, mild ascites Endocrine: Diabetes mellitus Glucose monitoring per ICU protocol, low dose regimen TSH WNL 3.050 MSK: Stage II gluteal/ sacral ulcers Obtain wound care consult-follow up recommendations -- SSI Prophylaxis: GI Prophylaxis Protonix infusion DVT Prophylaxis -- SCDs Hold Coumadin in the setting of possible bleed Lines: Right IJ central line, left radial arterial line (04/10/17) Dispo: my billing statement This patient remains critically ill with one or more organ systems which are or may become a threat to life. I have spent in excess of 39 minutes discontinuously in the care and management of this patient. This time is exclusive of procedures, and includes, but is not limited to, evaluation of the patient, review of the medical record, discussions with family, consultants, nursing staff, or respiratory therapy, and documentation in the medical record. D/W BILINGUAL RECEPTIONIST at bedside (David), and family (Mechelle) (Storm), all questions answered. The patient currently is in multisystem organ failure, prognosis is poor. Palliative care medicine has been consulted, to define goals of care. Physician Lily Casey MD Apr 13, 2017 15:48
[2017-04-13 16:25] LABS: HEMATOCRIT 21.3 % (39.0-51.0); HEMOGLOBIN 7.3 GM/DL (13.0-17.0)
--- NOTE | 2017-04-13 16:29 | ECHRPT ---
Indication: VEGETATION CONCLUSIONS Normal LV dimensions and systolic function No significant valvulopathies No vegetations appreciated BP: 130 / 58 HR: 62 Rhythm: Sinus Technical Quality:Good Alexi Michelle MD (Electronically Signed) Final Date:13 April 2017 16:28
[2017-04-13 17:44] LABS: BICARBONATE 25.9 MEQ/L (21.0-32.0); CALCIUM 5.7 MG/DL (8.5-10.1); CREATININE 3.57 MG/DL (0.60-1.30); TOTAL BILIRUBIN ADULT 0.5 MG/DL (0.2-1.0)
[2017-04-13 17:48] LABS: CALCIUM-PROTEIN CORRECTED 7.1 MG/DL (8.5-10.1)
[2017-04-13] MEDS: LACTULOSE SYRUP 20 GM/30 ML CUP PO SCH (18:09)
[2017-04-13] MEDS ORDERED: AMIODARONE INJ 150 MG in DEXTROSE 5% IN WATER 100ML INJ 100 ML IV ONE ×2 (18:33)
[2017-04-13] MEDS ORDERED: AMIODARONE HCL 150 MG/3 ML VIAL ONE (18:36)
[2017-04-13] MEDS ORDERED: AMIODARONE INJ 450 MG in DEXTROSE 5% IN WATE(EXCEL) INJ 241 ML IV PRN ×2 (18:43)
[2017-04-13] MEDS ORDERED: POTASSIUM CHLORIDE INJ 30 MEQ in SODIUM CHLORIDE 0.9% INJ 100 ML IV-CENTRAL ONE (18:45)
[2017-04-13] MEDS ORDERED: ALBUMIN 25% INJ 100 ML IV ONE (18:45)
[2017-04-13] MEDS ORDERED: TERBUTALINE INJ 1 MG/ML AMP SQ PRN (18:45)
--- NOTE | 2017-04-13 18:53 | HHI.IDPN ---
Subjective Subjective Remarks pt is hemodynamically unstable developped Vtach BP dropped into 70/40s On multiple pressors Hypothermic Antibiotics azithro zosyn Allergies: Coded Allergies: No Known Allergies (Verified Allergy, Unknown, 03/31/17) Objective . Vital Signs Date Time Temp Pulse Resp B/P (MAP) Pulse Ox O2 Delivery O2 Flow Rate FiO2 04/13/17 17:00 97.3 69 17 114/59 (77) 100 04/13/17 16:42 100 50 04/13/17 16:01 97.2 73 19 91/53 (66) 100 04/13/17 16:00 50 04/13/17 16:00 63 04/13/17 15:01 96.8 57 16 105/56 (72) 100 04/13/17 14:00 56 04/13/17 14:00 96.4 56 7 93/51 (65) 100 04/13/17 14:00 100 50 04/13/17 13:00 96.1 57 16 111/53 (72) 100 04/13/17 12:00 95.7 77 16 159/70 (99) 99 04/13/17 12:00 64 04/13/17 12:00 50 04/13/17 11:58 95.9 96 17 145/67 (93) 92 04/13/17 11:50 77 138/65 04/13/17 11:50 77 138/65 04/13/17 11:50 77 138/65 04/13/17 10:30 99 50 04/13/17 10:00 73 17 142/68 (92) 95 139/63 (88) 04/13/17 10:00 64 04/13/17 09:01 96.8 65 16 128/61 (83) 98 138/64 (88) 04/13/17 08:25 100 50 04/13/17 08:00 50 04/13/17 08:00 97.2 56 16 139/82 (101) 99 149/69 (95) 04/13/17 08:00 60 04/13/17 07:01 97.7 55 16 123/64 (83) 97 146/66 (92) 04/13/17 06:00 56 04/13/17 06:00 98.1 56 16 130/66 (87) 100 147/68 (94) 04/13/17 05:01 98.2 54 17 130/92 (105) 99 146/64 (91) 04/13/17 04:10 100 50 04/13/17 04:00 98.2 62 20 130/58 (82) 95 143/65 (91) 04/13/17 04:00 50 04/13/17 04:00 62 04/13/17 02:00 52 04/13/17 00:29 55 150/60 04/13/17 00:00 96.8 53 16 142/85 (104) 100 158/69 (98) 04/13/17 00:00 50 04/13/17 00:00 53 04/12/17 23:14 100 50 04/12/17 22:00 53 04/12/17 20:00 52 04/12/17 20:00 98.4 52 16 121/60 (80) 100 141/61 (87) 04/12/17 20:00 50 04/12/17 19:57 100 50 04/13/17 04/13/17 04/14/17 15:00 23:00 07:00 Intake Total 5165 ml Balance 5165 ml Intake IV Total 5165 ml . Laboratory Tests Test 04/12/17 03:35 04/13/17 05:20 04/13/17 15:55 White Blood Count 4.5 TH/MM3 10.9 TH/MM3 Red Blood Count 3.03 MIL/MM3 2.52 MIL/MM3 Hemoglobin 8.6 GM/DL 7.4 GM/DL 7.3 GM/DL Hematocrit 26.1 % 21.1 % 21.3 % Mean Corpuscular Volume 86.2 FL 83.6 FL Mean Corpuscular Hemoglobin 28.5 PG 29.2 PG Mean Corpuscular Hemoglobin Concent 33.0 % 35.0 % Red Cell Distribution Width 17.9 % 17.4 % Platelet Count 47 TH/MM3 40 TH/MM3 Mean Platelet Volume 9.5 FL 10.2 FL CBC Comment AUTO DIFF Differential Total Cells Counted 100 Neutrophils % (Manual) 59 % Band Neutrophils % 26 % Lymphocytes % 8 % Monocytes % 6 % Neutrophils # (Manual) 3.9 TH/MM3 Metamyelocytes 1 % Nucleated Red Blood Cells 5 /100 WBC Differential Comment FINAL DIFF MANUAL Platelet Estimate LOW Platelet Morphology Comment NORMAL [place] Cells 1+ Crenated Cell 1+ Acanthocytes 1+ Laboratory Tests Test 04/12/17 03:35 04/12/17 13:46 04/12/17 14:45 04/13/17 05:20 Blood Urea Nitrogen 51 MG/DL 52 MG/DL 53 MG/DL Creatinine 3.30 MG/DL 3.31 MG/DL 3.33 MG/DL Random Glucose 215 MG/DL 273 MG/DL 129 MG/DL Total Protein 4.2 GM/DL 4.0 GM/DL 4.0 GM/DL Albumin 1.1 GM/DL Calcium Level 5.7 MG/DL 5.5 MG/DL 5.3 MG/DL Phosphorus Level 5.4 MG/DL 4.3 MG/DL Magnesium Level 1.2 MG/DL 1.5 MG/DL 1.5 MG/DL Alkaline Phosphatase 79 U/L Aspartate Amino Transf (AST/SGOT) 98 U/L Alanine Aminotransferase (ALT/SGPT) 32 U/L Total Bilirubin 0.5 MG/DL Sodium Level 133 MEQ/L 131 MEQ/L 130 MEQ/L Potassium Level 3.0 MEQ/L 3.3 MEQ/L 3.7 MEQ/L Chloride Level 99 MEQ/L 97 MEQ/L 94 MEQ/L Carbon Dioxide Level 19.1 MEQ/L 23.5 MEQ/L 23.8 MEQ/L Anion Gap 15 MEQ/L 11 MEQ/L 12 MEQ/L Estimat Glomerular Filtration Rate 18 ML/MIN 18 ML/MIN 18 ML/MIN Protein Corrected Calcium 7.0 MG/DL 6.9 MG/DL 6.6 MG/DL Lactic Acid Level 1.8 mmol/L Test 04/13/17 16:40 Blood Urea Nitrogen 55 MG/DL Creatinine 3.57 MG/DL Random Glucose 117 MG/DL Total Protein 4.0 GM/DL Albumin 1.0 GM/DL Calcium Level 5.7 MG/DL Alkaline Phosphatase 81 U/L Aspartate Amino Transf (AST/SGOT) 77 U/L Alanine Aminotransferase (ALT/SGPT) 35 U/L Total Bilirubin 0.5 MG/DL Sodium Level 131 MEQ/L Potassium Level 3.6 MEQ/L Chloride Level 94 MEQ/L Carbon Dioxide Level 25.9 MEQ/L Anion Gap 11 MEQ/L Estimat Glomerular Filtration Rate 17 ML/MIN Protein Corrected Calcium 7.1 MG/DL Magnesium Level 1.6 MG/DL Microbiology Date/Time Source Procedure Growth Status 04/12/17 21:30 Blood Peripheral Aerobic Blood Culture - Preliminary NO GROWTH IN 1 DAY Resulted 04/12/17 21:30 Blood Peripheral Anaerobic Blood Culture - Preliminary NO GROWTH IN 1 DAY Resulted 04/12/17 19:18 Blood Peripheral Aerobic Blood Culture - Preliminary NO GROWTH IN 1 DAY Resulted 04/12/17 19:18 Blood Peripheral Anaerobic Blood Culture - Preliminary NO GROWTH IN 1 DAY Resulted 04/13/17 12:15 Stool Stool Stool Occult Blood (CHRISTO) Pending Received Imaging Last Impressions Chest X-Ray 04/13/17 0600 Signed Impressions: Service Date/Time: Thursday, April 13, 2017 04:55 - CONCLUSION: No significant interval change. Jorden Mckeon MD Abdomen Ultrasound 04/12/17 0000 Signed Impressions: Service Date/Time: April 09:23 - CONCLUSION: 1. 8 cm cystic mass posterior to the right kidney which may reflect abscess or hematoma. This would be accessible to percutaneous biopsy. 2. Chronic pancreatitis 3. Mild ascites 1. Theo Sanabria MD Head CT 04/10/17 0000 Signed Impressions: Service Date/Time: Monday, April 10, 2017 09:20 - CONCLUSION: Unremarkable study. Eduard Pillai MD Abdomen/Pelvis CT 04/10/17 0000 Signed Impressions: Service Date/Time: Monday, April 10, 2017 09:20 - CONCLUSION: 1. The right lung base consolidation not present previously characteristic of pneumonia possibility of aspiration should be entertained in the appropriate clinical setting. 2. Bladder stone. 3. The previously seen right perinephric well- defined hemorrhage has not significantly changed and the patient has undergone embolization since that time. 4. The fluid collection which is well defined within the psoas muscle has increased in size slightly may represent retroperitoneal hemorrhages evolving and could be followed. 5. Retroperitoneal lymph nodes are similar not changed since 11/2016. Eduard Pillai MD Physical Exam CONSTITUTIONAL/GENERAL: This is an ekderly adequately nourished patient, in no apparent distress. Orally intubated, on mech vent'n TUBES/LINES/DRAINS: SKIN: No jaundice, rashes, or lesions Skin temperature appropriate. Not diaphoretic. HEAD: Atraumatic. Normocephalic. EYES: Pupils equal and round and reactive. Extraocular motions intact. No scleral icterus. No injection or drainage. Fundi not examined. CARDIOVASCULAR: Regular rate and rhythm without murmurs, gallops, or rubs. No JVD. Peripheral pulses symmetric. Adequate refill RESPIRATORY/CHEST: Symmetric, unlabored respirations. Scattered rhonchi to auscultation. Breath sounds equal bilaterally. No wheezes, rales, or rhonchi. GASTROINTESTINAL: Abdomen soft, non-tender, nondistended. No hepato-splenomegaly , or palpable masses. No guarding. Bowel sounds present. GENITOURINARY: Without palpable bladder distension. Sands catheter in place with small amount o f cloudy urine MUSCULOSKELETAL: Extremities without clubbing, minimal toes cyanosis, or edema. No joint tenderness or effusion noted. No calf tenderness. No mottling or clubbing. NEUROLOGICAL: Eyes opened Unresponsive. Not follows commands. PSYCHIATRIC: unable to assess Assessment & Plan Remarks Acute PNA, CAP Invasive pneumococcal disease, sepsis, bacteremia due to MDRO Strep pneumo S to vanco, levaqun , but sensitivities to be repeated Complicated E.coli UTI in the settings of chronic sands sands changed on 04/10 Unspecified obstructive uropathy ARF on CKD Sepsis with multi organ failure including ARF, refractory hypotension, bradycardia, acute VDRF and encephalopathy Critically ill and unstable V tach MS change ? meningitis vs sepsis cont azithromycin cont vancomycin (ASP: MDRO Strep pneumo) dc Levaquine change zosyn to CFTX for E.coli consider LP when stable ., o/w will tx with Rx covering for meningitis isolation fu repeat BC Discussed Condition With Ashley Jane MD Apr 13, 2017 18:53
[2017-04-13] MEDS: MAGNESIUM SULFATE 1 GM PREMIX 100 ML IV SCH ×2 (20:00→20:14)
[2017-04-13] MEDS: cefTRIAXone INJ 2,000 MG in SODIUM CHLORIDE 0.9% INJ 100 ML IV SCH (20:01)
[2017-04-13] MEDS: PHENYLEPHRINE INJ 160 MG in DEXTROSE 5% IN WATE 500 ML INJ 484 ML IV PRN ×2 (20:03)
[2017-04-13] MEDS: AMIODARONE INJ 450 MG in SODIUM CHLOR 0.9% (EXCEL) INJ 241 ML IV PRN (20:45)
[2017-04-14] VITALS (24 sets, daily range): BP systolic 87–116; BP diastolic 53–60; PULSE 47–70; RESP 0–17; TEMP 97–97.5; O2SAT 98–100
[2017-04-14] MEDS: CHLORHEXIDINE GLUCONATE 2 % 1 PACK (2 CLOTHS) TOP SCH (03:30)
[2017-04-14] MEDS: RESP: ALBUTEROL 2.5 MG/IPRATROPIUM 0.5 MG NEB (SCH) NEB ×4 (03:31→21:05)
--- NOTE | 2017-04-14 04:43 | RADRPT ---
EXAM DATE/TIME: 04/14/2017 03:10 [place] COMPARISON: CHEST SINGLE AP, April 13, 2017, 4:55. INDICATIONS : Shortness of breath, possible pulmonary disease. MEDICAL HISTORY : Congestive heart failure. Pancreatitis. Left kidney Ca SURGICAL HISTORY : Tonsillectomy. Cholecystectomy. Coronary stent Thoracic aneurysm repair ENCOUNTER: Subsequent ACUITY: 4 - 6 days PAIN SCORE: Non-responsive. LOCATION: Bilateral chest FINDINGS: Single AP view of the chest. Endotracheal tube, nasogastric tube, right IJ central venous catheter re main in place. Persistent bilateral pulmonary parenchymal opacity. No significant interval change. Ao rtic stent again noted. No evidence of pneumothorax. Likely small right pleural effusion unchanged. CONCLUSION: No significant interval change. Persistent right greater than left lung opacity. Jorden Mckeon MD on April 14, 2017 at 4:33 Board Certified Radiologist. This report was verified electronically.
[2017-04-14] MEDS: HYDROCORTISONE SOD SUCCINATE 100 MG VIAL IV PUSH SCH ×3 (05:04→20:38)
[2017-04-14] MEDS: VASOPRESSIN 40 U/D5W 100 ML Titrate, Post Cardiac Surgery IV PRN ×4 (05:43→20:38)
[2017-04-14 05:46] LABS: HEMATOCRIT 23.6 % (39.0-51.0); MEAN CELL VOLUME 85.3 FL (80.0-100.0); MEAN CORPUSCULAR HEMOGLOBIN 28.8 PG (27.0-34.0); MEAN CORPUSCULAR HGB CONC 33.7 % (32.0-36.0); MEAN PLATELET VOLUME 10.3 FL (7.0-11.0); PLATELET COUNT 29 TH/MM3 (150-450); RED BLOOD COUNT 2.77 MIL/MM3 (4.50-5.90); RED CELL DISTRIBUTION WIDTH 17.3 % (11.6-17.2); WHITE BLOOD COUNT 11.4 TH/MM3 (4.0-11.0)
[2017-04-14 06:18] LABS: BICARBONATE 22.3 MEQ/L (21.0-32.0); CALCIUM 5.8 MG/DL (8.5-10.1); CREATININE 3.68 MG/DL (0.60-1.30); MAGNESIUM 1.8 MG/DL (1.5-2.5)
[2017-04-14 06:33] LABS: TOTAL PROTEIN 4.2 GM/DL (6.4-8.2)
[2017-04-14 06:37] LABS: CALCIUM-PROTEIN CORRECTED 7.1 MG/DL (8.5-10.1)
[2017-04-14 07:48] LABS: BANDS 5 % (0-6); LYMPHOCYTES 3 % (9-44); MONOCYTES 5 % (0-8); NEUTROPHIL # MANUAL DIFF 10.5 TH/MM3 (1.8-7.7); POLYS (SEG NEUTROPHILS) 87 % (16-70)
[2017-04-14 07:49] LABS: ACANTHOCYTES OCC (NORMAL); OVALOCYTES 1+ (NORMAL)
[2017-04-14] MEDS: INSULIN ASPART SUPPLEMENTAL SCALE SQ SCH ×4 (08:00→19:39)
[2017-04-14] MEDS: LACTULOSE SYRUP 20 GM/30 ML CUP PO SCH (08:01)
[2017-04-14] MEDS: SODIUM CHLORIDE 0.9% FLUSH 10 ML FLUSH IV FLUSH SCH ×2 (08:01→20:04)
[2017-04-14] MEDS: SODIUM CHLORIDE 0.9% FLUSH 10 ML FLUSH IV FLUSH PRN (08:01)
[2017-04-14] MEDS: FAMOTIDINE 20 MG TAB PO SCH ×2 (08:01→20:03)
[2017-04-14] MEDS: PANTOPRAZOLE INJ 80 MG in SODIUM CHLORIDE 0.9% INJ 100 ML IV SCH ×2 (08:02→16:34)
[2017-04-14] MEDS: DOCUSATE SODIUM 50 MG/SENNA 8.6 MG TAB PO SCH ×2 (08:02→19:39)
[2017-04-14] MEDS: AMIODARONE INJ 450 MG in SODIUM CHLOR 0.9% (EXCEL) INJ 241 ML IV PRN (08:03)
--- NOTE | 2017-04-14 09:01 | PD.CONS ---
HPI Consult Requested By Primary Care Physician [facility] History of Present Illness 71-year-old male with a past medical history of pulmonary embolus, atrial fibrillation on Coumadin, AAA, anxiety, coronary artery disease, COPD, CKD, DM and anemia who presented to the ED for altered mental status, dyspnea and hypotension. He was found to have strep pneumoniae suspicious for aspiration as well as an Escherichia coli UTI. Nasal washing was negative for influenza A and B. He also has and admission in [place] on 02/28 through 03/20 for a GI bleed, HCAP and was noted to have a perinephric hematoma status post IR embolization. On 04/12 he had an episode of wide-complex tachycardia with hypotension, blood pressures in the 60s over 40s, requiring the initiation of vasopressors. Amiodarone has been initiated for ventricular arrhythmia suppression. Past Family Social History Allergies: Coded Allergies: No Known Allergies (Verified Allergy, Unknown, 03/31/17) Past Medical History Diabetes Hypertension Chronic kidney disease Retroperitoneal bleed Right perinephric bleed Embolization Coronary artery disease Status post stents Hyperlipidemia COPD CHF Bladder dysfunction Osteoarthritis Renal cyst Inguinal hernia Bladder stone Lumbar pain Pancreatitis Past Surgical History Missing teeth Stents Aortic Embolization Inguinal hernia repair 3 times Reported Medications Reported Meds & Active Scripts Active Loperamide (Loperamide HCl) 2 Mg Cap 2 Mg PO DIRECTED PRN 30 Days One capsule after each loose stool. Not to exceed 8 capsules per day. Magnesium Oxide 400 Mg Tab 400 Mg PO DAILY 30 Days Coreg (Carvedilol) 6.25 Mg Tab 6.25 Mg PO Q12HR Pantoprazole (Pantoprazole Sodium) 40 Mg Tab 40 Mg PO DAILY Ferosul (Ferrous Sulfate) 325 Mg Tablet 325 Mg PO DAILY Vitamin D3 (Cholecalciferol) 5,000 Unit Cap 5,000 Units PO DAILY Oyster Shell 250 mg + Vit D Tb (Calcium/Vitamin D) 250 Mg Calcium (625 Mg)-125 Unit Tablet 500 Mg PO Q12HR Rocaltrol (Calcitriol) 0.25 Mcg Cap 0.5 Mcg PO DAILY Reported Losartan (Losartan Potassium) 25 Mg Tab 25 Mg PO DAILY Hydralazine HCl 25 Mg Tablet 10 Mg PO TID Pravastatin 40 Mg Tab 40 Mg PO DAILY Active Ordered Medications Current Medications Medications (Trade) Dose Ordered Sig/Ana Route Start Time Stop Time Status Last Admin Pantoprazole Sodium 80 mg/ Sodium Chloride 100 ml @ 10 mls/hr Q10H IV 04/10/17 11:52 04/14/17 08:02 (NS Flush) 2 ml UNSCH PRN IV FLUSH 04/10/17 12:00 04/14/17 08:01 (NS Flush) 2 ml BID IV FLUSH 04/10/17 21:00 04/14/17 08:01 (Tylenol) 650 mg Q6H PRN PO 04/10/17 12:00 (Pepcid Inj) 10 mg Q12HR PRN IV PUSH 04/10/17 21:00 (Pepcid) 10 mg Q12HR PO 04/10/17 21:00 04/14/17 08:01 (Zofran Inj) 4 mg Q6H PRN IV PUSH 04/10/17 12:00 Miscellaneous Information 1 Q361D XX 04/10/17 12:00 (Chlorhexidine 2% Cloth) 3 pack Taper DAILY@04 TOP 04/11/17 04:00 04/07/18 03:59 04/14/17 03:30 (Chlorhexidine 2% Cloth) 3 pack UNSCH PRN TOP 04/10/17 12:00 (Valerie-Colace) 1 tab BID PO 04/10/17 21:00 (Milk Of Magnesia Liq) 30 ml Q12H PRN PO 04/10/17 12:00 (Senokot) 17.2 mg Q12H PRN PO 04/10/17 12:00 (Dulcolax Supp) 10 mg DAILY PRN RECTAL 04/10/17 12:00 (Lactulose Liq) 30 ml DAILY PRN PO 04/10/17 12:00 Azithromycin 500 mg/Sodium Chloride 250 ml @ 250 mls/hr Q24H IV 04/10/17 13:00 04/13/17 13:01 Fentanyl Citrate 250 ml @ 5 mls/hr TITRATE PRN IV 04/10/17 14:45 04/13/17 08:32 Vasopressin 40 units/Dextrose 100 ml @ 1.5 mls/hr TITRATE PRN IV 04/10/17 15:15 04/14/17 05:43 (SoluCORTEF INJ) 100 mg Q8HR IV PUSH 04/10/17 16:37 04/14/17 05:04 (Tears Naturale Opth Soln) 1 drop Q4H PRN EACH EYE 04/11/17 18:00 Pharmacy Profile Note 0 ml @ 0 mls/hr UNSCH OTHER 04/12/17 09:00 Norepinephrine Bitartrate 16 mg/ Dextrose 250 ml @ 1.87 mls/hr TITRATE PRN IV 04/12/17 10:45 04/12/17 18:08 (D50w (Vial) Inj) 50 ml UNSCH PRN IV PUSH 04/12/17 13:15 (Glucagon Inj) 1 mg UNSCH PRN OTHER 04/12/17 13:15 (NovoLOG SUPPLEMENTAL SCALE) 1 ACHS SLIDING SCALE SQ 04/12/17 17:00 04/12/17 16:33 Epinephrine HCl 2 mg/Dextrose 252 ml @ 22.68 mls/ hr TITRATE PRN IV 04/12/17 20:00 (Brethine Inj) 1 mg UNSCH PRN SQ 04/12/17 20:00 (Duoneb Neb) 1 ampule Q6HR NEB NEB 04/13/17 16:00 04/14/17 03:31 (Duoneb Neb) 1 ampule Q2HR NEB PRN NEB 04/13/17 14:45 (Lactulose Liq) 30 ml DAILY PO 04/13/17 16:30 04/14/17 08:01 Phenylephrine HCl 160 mg/Dextrose 500 ml @ 7.5 mls/hr TITRATE PRN IV 04/13/17 18:45 04/13/17 20:03 (Brethine Inj) 1 mg UNSCH PRN SQ 04/13/17 18:45 Ceftriaxone Sodium 2000 mg/ Sodium Chloride 100 ml @ 200 mls/hr Q24H IV 04/13/17 19:00 04/13/17 20:01 Amiodarone HCl 450 mg/Sodium Chloride 250 ml @ 33.33 mls/ hr Q7H31M PRN IV 04/13/17 19:30 04/14/17 08:03 Family History Noncontributory Physical Exam Vital Signs Vital Signs Date Time Temp Pulse Resp B/P (MAP) Pulse Ox O2 Delivery O2 Flow Rate FiO2 04/14/17 08:22 100 50 04/14/17 08:03 58 112/58 04/14/17 08:00 97.3 57 6 112/58 (76) 100 04/14/17 08:00 50 04/14/17 07:00 97.5 52 16 106/55 (72) 100 04/14/17 06:00 59 04/14/17 05:43 61 04/14/17 04:00 50 04/14/17 04:00 70 04/14/17 04:00 98.1 70 17 116/60 (78) 100 04/14/17 03:29 100 50 04/14/17 02:00 64 04/14/17 00:00 59 04/14/17 00:00 98.1 59 15 108/58 (75) 100 04/14/17 00:00 50 04/13/17 23:28 100 50 04/13/17 22:00 58 04/13/17 21:50 97.9 61 8 106/51 100 04/13/17 21:35 97.9 55 16 109/54 100 04/13/17 20:45 119/56 04/13/17 20:11 100 50 04/13/17 20:03 55 107/53 04/13/17 20:00 53 04/13/17 20:00 50 04/13/17 20:00 97.5 53 16 107/53 (71) 100 Arterial Line 04/13/17 18:36 136 04/13/17 18:10 63 107/53 04/13/17 18:00 63 04/13/17 17:00 97.3 69 17 114/59 (77) 100 04/13/17 16:42 100 50 04/13/17 16:01 97.2 73 19 91/53 (66) 100 04/13/17 16:00 50 04/13/17 16:00 63 04/13/17 15:01 96.8 57 16 105/56 (72) 100 04/13/17 14:00 56 04/13/17 14:00 96.4 56 7 93/51 (65) 100 04/13/17 14:00 100 50 04/13/17 13:00 96.1 57 16 111/53 (72) 100 04/13/17 12:00 95.7 77 16 159/70 (99) 99 04/13/17 12:00 64 04/13/17 12:00 50 04/13/17 11:58 95.9 96 17 145/67 (93) 92 04/13/17 11:50 77 138/65 04/13/17 11:50 77 138/65 04/13/17 11:50 77 138/65 04/13/17 10:30 99 50 04/13/17 10:00 73 17 142/68 (92) 95 139/63 (88) 04/13/17 10:00 64 04/13/17 09:01 96.8 65 16 128/61 (83) 98 138/64 (88) Laboratory Laboratory Tests Test 04/13/17 12:15 04/13/17 15:55 04/13/17 16:40 04/14/17 05:25 Stool C. difficile Toxin (PCR) NEGATIVE Stl C. difficile Toxin Epiderm 027 PRESUMPTIVE NEGATIVE Hemoglobin 7.3 Hematocrit 21.3 Blood Urea Nitrogen 55 Creatinine 3.57 Random Glucose 117 Total Protein 4.0 Albumin 1.0 Calcium Level 5.7 Alkaline Phosphatase 81 Aspartate Amino Transf (AST/SGOT) 77 Alanine Aminotransferase (ALT/SGPT) 35 Total Bilirubin 0.5 Sodium Level 131 Potassium Level 3.6 Chloride Level 94 Carbon Dioxide Level 25.9 Anion Gap 11 Estimat Glomerular Filtration Rate 17 Protein Corrected Calcium 7.1 Magnesium Level 1.6 Blood Gas Puncture Site LT RADIAL Blood Gas Patient Temperature 98.6 Blood Gas HCO3 21 Blood Gas Base Excess -4.4 Blood Gas Oxygen Saturation 94 Arterial Blood pH 7.28 Arterial Blood Partial Pressure CO2 47 Arterial Blood Partial Pressure O2 135 Arterial Blood Oxygen Content 11.0 Arterial Blood Carboxyhemoglobin 0.7 Arterial Blood Methemoglobin 2.6 Blood Gas Hemoglobin 8.1 Oxygen Delivery Device VENTILATOR Blood Gas Ventilator Setting VOLUME AC Blood Gas Inspired Oxygen 50 Test 04/14/17 05:30 White Blood Count 11.4 Red Blood Count 2.77 Hemoglobin 8.0 Hematocrit 23.6 Mean Corpuscular Volume 85.3 Mean Corpuscular Hemoglobin 28.8 Mean Corpuscular Hemoglobin Concent 33.7 Red Cell Distribution Width 17.3 Platelet Count 29 Mean Platelet Volume 10.3 CBC Comment AUTO DIFF Differential Total Cells Counted 100 Neutrophils % (Manual) 87 Band Neutrophils % 5 Lymphocytes % 3 Monocytes % 5 Neutrophils # (Manual) 10.5 Differential Comment FINAL DIFF MANUAL Platelet Estimate LOW Platelet Morphology Comment ENLARGED Basophilic Stippling MOD Ovalocytes 1+ Acanthocytes OCC Blood Urea Nitrogen 57 Creatinine 3.68 Random Glucose 161 Total Protein 4.2 Calcium Level 5.8 Phosphorus Level 5.0 Magnesium Level 1.8 Sodium Level 130 Potassium Level 4.0 Chloride Level 93 Carbon Dioxide Level 22.3 Anion Gap 15 Estimat Glomerular Filtration Rate 16 Protein Corrected Calcium 7.1 Ammonia 26 Random Vancomycin Level 20.0 Date/Time Source Procedure Growth Status 04/12/17 21:30 Blood Peripheral Aerobic Blood Culture - Preliminary NO GROWTH IN 1 DAY Resulted 04/12/17 21:30 Blood Peripheral Anaerobic Blood Culture - Preliminary NO GROWTH IN 1 DAY Resulted 04/13/17 12:15 Stool Stool Stool Occult Blood ([facility]) - Final HEMOCCULT POSITIVE Complete 04/10/17 13:00 Nasal Washing Influenza Types A,B Antigen ([facility]) - Final NEGATIVE FOR FLU A AND B ANTIGEN.... Complete 04/10/17 11:30 Urine Catheterized Urine Legionella Antigen - Final PRESUMPTIVE NEGATIVE FOR LEGIONELLA P... Complete 04/10/17 11:30 Urine Catheterized Urine Streptococcus pneumoniae Antigen (M - Final PRESUMPTIVE NEGATIVE FOR STREPTOCOCCU... Complete Result Diagram: 04/14/17 0530 04/14/17 0530 Imaging Last Impressions Chest X-Ray 04/14/17 0600 Signed Impressions: Service Date/Time: Friday, April 14, 2017 03:10 - CONCLUSION: No significant interval change. Persistent right greater than left lung opacity. Jorden Mckeon MD Abdomen Ultrasound 04/12/17 0000 Signed Impressions: Service Date/Time: April 09:23 - CONCLUSION: 1. 8 cm cystic mass posterior to the right kidney which may reflect abscess or hematoma. This would be accessible to percutaneous biopsy. 2. Chronic pancreatitis 3. Mild ascites 1. Theo Sanabria MD Head CT 04/10/17 0000 Signed Impressions: Service Date/Time: Monday, April 10, 2017 09:20 - CONCLUSION: Unremarkable study. K. Lio Pillai MD Abdomen/Pelvis CT 04/10/17 0000 Signed Impressions: Service Date/Time: Monday, April 10, 2017 09:20 - CONCLUSION: 1. The right lung base consolidation not present previously characteristic of pneumonia possibility of aspiration should be entertained in the appropriate clinical setting. 2. Bladder stone. 3. The previously seen right perinephric well- defined hemorrhage has not significantly changed and the patient has undergone embolization since that time. 4. The fluid collection which is well defined within the psoas muscle has increased in size slightly may represent retroperitoneal hemorrhages evolving and could be followed. 5. Retroperitoneal lymph nodes are similar not changed since 11/2016. Eduard Pillai MD Assessment and Plan Problem List: (1) Paroxysmal atrial fibrillation ICD Codes: I48.0 - Paroxysmal atrial fibrillation Status: Acute Plan: Afib with RVR in the setting of Sepsis Hemodynamically stable on multiple pressors Multiorgan failure Sepsis Afib with RVR Poor overall prognosis Recommendations: 1. Cont rate control for Afib as tolerated by BP and HR, however Afib likely due to underlying physiologic response to sepsis Case discussed with Atomic Physics Professor and Daughter (2) Septic shock ICD Codes: A41.9 - Sepsis, unspecified organism; R65.21 - Severe sepsis with septic shock (3) HTN (hypertension) ICD Codes: I10 - HTN (hypertension) Status: Chronic (4) DM (diabetes mellitus) ICD Codes: E11.9 - DM (diabetes mellitus) Status: Chronic (5) CKD (chronic kidney disease) stage 3, GFR 30-59 ml/min ICD Codes: N18.3 - Chronic kidney disease, stage 3 (moderate) Alexi Michelle MD Apr 14, 2017 09:01
[2017-04-14] MEDS: AZITHROMYCIN INJ 500 MG in SODIUM CHLOR 0.9% 250 ML INJ 250 ML IV SCH (11:50)
[2017-04-14] MEDS: fentaNYL DRIP 250 ML IV PRN (11:52)
--- NOTE | 2017-04-14 12:37 | HHI.NPPN ---
Subjective History of Present Illness 71-year-old male with history of chronic kidney disease, now with acute renal failure, multiorgan failure, septic and hemorrhagic shock Objective Data Data Vital Signs Date Time Temp Pulse Resp B/P (MAP) Pulse Ox O2 Delivery O2 Flow Rate FiO2 04/14/17 12:00 40 04/14/17 12:00 97.2 55 7 104/55 (71) 100 04/14/17 12:00 55 04/14/17 11:49 100 50 04/14/17 11:00 58 04/14/17 11:00 97.2 58 16 108/59 (75) 100 04/14/17 10:00 61 04/14/17 10:00 97.2 61 15 115/58 (77) 98 04/14/17 09:00 97.2 57 8 114/57 (76) 100 04/14/17 09:00 57 04/14/17 08:22 100 50 04/14/17 08:03 58 112/58 04/14/17 08:00 97.3 57 6 112/58 (76) 100 04/14/17 08:00 57 04/14/17 08:00 50 04/14/17 07:00 97.5 52 16 106/55 (72) 100 04/14/17 07:00 52 04/14/17 06:00 59 04/14/17 05:43 61 04/14/17 04:00 50 04/14/17 04:00 70 04/14/17 04:00 98.1 70 17 116/60 (78) 100 04/14/17 03:29 100 50 04/14/17 02:00 64 04/14/17 00:00 59 04/14/17 00:00 98.1 59 15 108/58 (75) 100 04/14/17 00:00 50 04/13/17 23:28 100 50 04/13/17 22:00 58 04/13/17 21:50 97.9 61 8 106/51 100 04/13/17 21:35 97.9 55 16 109/54 100 04/13/17 20:45 119/56 04/13/17 20:11 100 50 04/13/17 20:03 55 107/53 04/13/17 20:00 53 04/13/17 20:00 50 04/13/17 20:00 97.5 53 16 107/53 (71) 100 Arterial Line 04/13/17 18:36 136 04/13/17 18:10 63 107/53 04/13/17 18:00 63 04/13/17 17:00 97.3 69 17 114/59 (77) 100 04/13/17 16:42 100 50 04/13/17 16:01 97.2 73 19 91/53 (66) 100 04/13/17 16:00 50 04/13/17 16:00 63 04/13/17 15:01 96.8 57 16 105/56 (72) 100 04/13/17 14:00 56 04/13/17 14:00 96.4 56 7 93/51 (65) 100 04/13/17 14:00 100 50 04/13/17 13:00 96.1 57 16 111/53 (72) 100 -: 04/14/17 0530 04/14/17 0530 Physical Exam General Appearance: Pale Neck Neck Exam: Neck Supple Pulmonary Resp Exam: Clear Bilaterally Cardiology CV Exam: Regular, Normal Sinus Rhythm Gastrointestinal/Abdomen GI Exam: Soft, Non-Tender Extremeties Extremities Exam: No Edema Assessment/Plan Problem List: (1) Acute renal failure ICD Codes: N17.9 - Acute kidney failure, unspecified Status: Acute Plan: Patient appears to have acute tubular necrosis Oliguria Multiorgan failure Severe acidosis Hemorrhagic and septic shock On vasopressors retro peritoneal bleed Poor prognosis Cr higher 3. 6 Mg replace Ca replaced Continue supportive care urine output remains low Ecoli UTI Strep Pneumoniae sepsis d/w family doing poorly d/w Dr Arroyo all agree to withdraw and no dialysis poor outcome (2) Metabolic acidosis ICD Codes: E87.2 - Acidosis Plan: On bicarbonate (3) Hemorrhagic shock ICD Codes: R57.8 - Other shock Plan: Monitor hemoglobin may need transfusion (4) Septic shock ICD Codes: A41.9 - Sepsis, unspecified organism; R65.21 - Severe sepsis with septic shock Plan: On antibiotic Levaquin, Zosyn and Zithromax (5) Acute blood loss anemia ICD Codes: D62 - Acute posthemorrhagic anemia Status: Resolved Plan: As above (6) Sepsis ICD Codes: A41.9 - Sepsis, unspecified organism Status: Acute Problem Qualifiers (1) Sepsis: Qualified Codes: A41.9 - Sepsis, unspecified organism Cecilio Howard MD Apr 14, 2017 12:37
--- NOTE | 2017-04-14 12:59 | EKG ---
Date Performed: 04/13/2017 Time Performed: 16:37:42 PTAGE: 71 years EKG: Rhythm appears to be a Sinus rhythm with PACs and runs of PACs. Intraventricular conduction disturbance Poor initial anterior forces Non specific T-wave change Low limb lead voltage Compared to previous tracing, the PACs and runs of PACs are new. Abnormal ECG PREVIOUS TRACING : 04/10/2017 08.50 DOCTOR: Zachary Muro Interpretating Date/Time 04/14/2017 12:58:56
--- NOTE | 2017-04-14 13:02 | EKG ---
Date Performed: 04/13/2017 Time Performed: 17:08:50 PTAGE: 71 years EKG: This is probably a slow ventricular tachycardia versus aberrant conduction with heart rate of 121. T-wave changes are probably due to conduction abnormality versus the ventricular tachycardia. This is not a rapid rate if this is ventricular tachycardia but is still quite concerning Compared t o previous tracing, the rhythm change is new. There may be P-waves seen in the ST segment, which coul d be retrograde conduction versus prolonged first degree block. Clinical correlation and follow-up tr acing strongly recommended. Abnormal ECG PREVIOUS TRACING : 04/13/2017 16.37 DOCTOR: Zachary Muro Interpretating Date/Time 04/14/2017 13:01:22
--- NOTE | 2017-04-14 14:35 | HHI.CCPN ---
Subjective Remarks/Hospital Course This is a 71-year-old male that presented to the ED for altered mental status. The patient's past medical history is significant for A. fib and the patient is on on chronic anticoagulation therapy with coumadin. The patient's past medical history also includes AAA, anxiety, CAD, CHF, COPD, CKD, DM, anemia presents to the ED . Per EMS report, the patient initially responded to the call for SOB but upon arrival, pt was found to be hypotensive. The family reported altered mental status, upon presentation to the ED the patient is AAOx2 and states that his right side hurts. The patient has not eaten or taken any meds for over 48 hours and then the family reportedly gave all his meds last night at 2100 .He was admitted 02/28-03/20/17 for GI bleed and had panendoscopy that showed no active bleeding but has peptic duodenitis, and underwent IR embolization for perinephric hemorrhage at that time. Pt also had perinephric hematoma s/p IR embolization and had HCAP. Pt was discharge from rehab about 1 week ago inability to ambulate. He does complain of black stool when asked. Laboratory and imaging studies were performed in the ED which showed 12% bandemia, patient previously hospitalized at recent discharge 2016 with right lower lobe pneumonia, and positive Hemoccult 02/2017, as well as this admission. 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 The patient's previous hospitalization revealed a spine obtained hemorrhage of the right mid pole kidney 6.5 cm the head increased to 8.[address] of the abdomen and pelvis today reveal no change in size of 8.5 cm in the right midpole of the kidney however there is a fluid collection well-defined in the psoas muscle area. Patient reportedly was hypotensive and received in the ED 2 L of normal saline, as well as Zosyn and vancomycin. Upon entering the patient's room in the ED the patient was noted to have blood pressures mid 90s/50s with a heart rate of 61 O2 saturation on 2 L was approximately 95%. The patient was noted to be lethargic, but easily arousable. Flow was noted to be 61 and the patient is receiving D50 one amp, the patient was noted to have significantly elevated creatinine with the BUN of 52 and currently receiving bolus of IV fluids. Subjective: 04/11: Afebrile .on arrival to the ICU the patient was emergently intubated , secondary to unresponsiveness, and required multiple pressors continues only Levophed,phenylephrine and vasopressin infusions. Patient continues on sodium bicarbonate infusion, with severe metabolic acidosis. Hemoglobin stabilize after 1 unit of PRBC's. Persistent bandemia, cultures revealed gram-positive cocci. ID consulted. 04/12: Afebrile. Last evening, the patient began to have episodes of sinus bradycardia requiring increasing doses of norepinephrine throughout the night currently at 20 mcgs, unable to be transported for CT of the abdomen and pelvis. The patient continues on multiple pressors at this time with continued metabolic acidosis. Microbiology results revealed urine gram-negative rods and gram-positive cocci bacteremia patient on broad-spectrum antibiotics ID has been consulted and awaiting recommendations. Patient's renal and hepatic function continues to decline. Ultrasound of abdomen ordered this a.m., 2/2 hemodynamic instability patient unable to have repeat CT scan of abdomen and pelvis last evening. Suitable electrolyte derangements early this a.m. currently being repleted. The patient went into A. fib RVR with a heart rate of 150, was bolused with amiodarone and currently on amiodarone infusion. 04/13: Afebrile. Metabolic acidosis resolved. The patient continues to be hyponatremic will continue to monitor, with electrolyte derangements. Phenylephrine has been discontinued. The patient continues on Neosynephrine and vasopressin. NG tube has been clamped minimal output overnight approximately 50 cc of bilious secretions. GI has signed off because of the patient's hemodynamic instability will like to perform invasive procedures panendoscopy when patient becomes hemodynamically stable. 04/14: Afebrile. Throughout the night the patient continued to go into A. fib RVR resulting in resumption of amiodarone infusion. The patient also went into episodes of ventricular tachycardia. The patient continues on Deven-Synephrine and vasopressin for vasopressor support. The patient has become severely thrombocytopenic and received 2 units of platelets. The patient continues to have electrolyte derangements which are being repleted. Discussion with the patient's daughter Mechelle, with her 2 brothers telephonically, she informed me that they requested alternate CODE STATUS. Intubation and shocks only. Further discussion elicited that they would like perhaps ventilator withdrawal/comfort care measures instituted tentatively tomorrow or Sunday04/16/2017. Patient remains oliguric, nephrology following. Objective Vital Signs Date Time Temp Pulse Resp B/P (MAP) Pulse Ox O2 Delivery O2 Flow Rate FiO2 04/14/17 12:00 40 04/14/17 12:00 97.2 55 7 104/55 (71) 100 04/10/17 13:15 5.00 04/10/17 12:15 Nasal Cannula Intake and Output 04/14/17 04/14/17 04/15/17 08:00 16:00 00:00 Intake Total 591 ml Output Total 75 ml Balance 516 ml Result Diagram: 04/14/17 0530 04/14/17 0530 Other Results Microbiology Date/Time Source Procedure Growth Status 04/13/17 12:15 Stool Stool Stool Occult Blood (CHRISTO) - Final HEMOCCULT POSITIVE Complete Laboratory Tests Test 04/14/17 05:25 Blood Gas Puncture Site LT RADIAL Blood Gas Patient Temperature 98.6 Blood Gas HCO3 21 mmol/L (22-26) Blood Gas Base Excess -4.4 mmol/L (-2-2) Blood Gas Oxygen Saturation 94 % (90-100) Arterial Blood pH 7.28 (7.380-7.420) Arterial Blood Partial Pressure CO2 47 mmHg (38-42) Arterial Blood Partial Pressure O2 135 mmHg (61-120) Arterial Blood Oxygen Content 11.0 Vol % (12.0-20.0) Arterial Blood Carboxyhemoglobin 0.7 % (0-4) Arterial Blood Methemoglobin 2.6 % (0-2) Blood Gas Hemoglobin 8.1 G/DL (12.0-16.0) Oxygen Delivery Device VENTILATOR Blood Gas Ventilator Setting VOLUME AC Blood Gas Inspired Oxygen 50 % Imaging Last Impressions Chest X-Ray 04/14/17 0600 Signed Impressions: Service Date/Time: Friday, April 14, 2017 03:10 - CONCLUSION: No significant interval change. Persistent right greater than left lung opacity. Jorden Mckeon MD Abdomen Ultrasound 04/12/17 0000 Signed Impressions: Service Date/Time: April 09:23 - CONCLUSION: 1. 8 cm cystic mass posterior to the right kidney which may reflect abscess or hematoma. This would be accessible to percutaneous biopsy. 2. Chronic pancreatitis 3. Mild ascites 1. Theo Sanabria MD Head CT 04/10/17 0000 Signed Impressions: Service Date/Time: Monday, April 10, 2017 09:20 - CONCLUSION: Unremarkable study. Eduard Pillai MD Abdomen/Pelvis CT 04/10/17 0000 Signed Impressions: Service Date/Time: Monday, April 10, 2017 09:20 - CONCLUSION: 1. The right lung base consolidation not present previously characteristic of pneumonia possibility of aspiration should be entertained in the appropriate clinical setting. 2. Bladder stone. 3. The previously seen right perinephric well- defined hemorrhage has not significantly changed and the patient has undergone embolization since that time. 4. The fluid collection which is well defined within the psoas muscle has increased in size slightly may represent retroperitoneal hemorrhages evolving and could be followed. 5. Retroperitoneal lymph nodes are similar not changed since 11/2016. Eduard Pillai MD Last Impressions Head CT 04/10/17 0000 Signed Impressions: Service Date/Time: Monday, April 10, 2017 09:20 - CONCLUSION: Unremarkable study. Eduard Pillai MD Chest X-Ray 04/10/17 0000 Signed Impressions: Service Date/Time: Monday, April 10, 2017 09:02 - CONCLUSION: 1. Diffuse infiltrates involving the right lung consistent with probable pneumonia. 2. Cardiomegaly. Storm Weiner MD Abdomen/Pelvis CT 04/10/17 0000 Signed Impressions: Service Date/Time: Monday, April 10, 2017 09:20 - CONCLUSION: 1. The right lung base consolidation not present previously characteristic of pneumonia possibility of aspiration should be entertained in the appropriate clinical setting. 2. Bladder stone. 3. The previously seen right perinephric well- defined hemorrhage has not significantly changed and the patient has undergone embolization since that time. 4. The fluid collection which is well defined within the psoas muscle has increased in size slightly may represent retroperitoneal hemorrhages evolving and could be followed. 5. Retroperitoneal lymph nodes are similar not changed since 11/2016. Eduard Pillai MD Objective Remarks Infusions: Phenylephrine-off Norepinephrine off Amiodarone 0.5mg/hr Vasopressin 0.04u/hr Fentanyl 100 mcgs/hr GENERAL: Critically ill-appearing malnourished, male intubated and sedated SKIN: Warm and dry. HEAD: Atraumatic. Normocephalic. EYES: Pupils equal and round. No scleral icterus. No injection or drainage. ENT: No nasal bleeding or discharge. Mucous membranes pink and dry. NECK: Trachea midline. No JVD. CARDIOVASCULAR: Normal rate, regular rhythm. RESPIRATORY: No accessory muscle use. Clear to auscultation. Breath sounds equal bilaterally. GASTROINTESTINAL: Abdomen soft, non-tender, nondistended. No guarding. MUSCULOSKELETAL: Extremities without clubbing, cyanosis, or edema. No obvious deformities. NEUROLOGICAL: Intubated and sedated RASS -2. Alert and oriented 2 No gross focal/sensory deficits. Not following commands but moving extremities x4 Date of Insertion: Apr 10, 2017 Date of Insertion: Apr 10, 2017 Side: Right Location: Internal, Jugular A/P Assessment and Plan This is a 71-year-old debilitated critically ill-appearing male in septic shock with multisystem organ failure. Prognosis is guarded at this time. Plan by systems: Neurologic: Metabolic encephalopathy Neurochecks per ICU protocol Trend ammonia level Fentanyl infusion for sedation for ventilator synchrony, currently at 100 mics/ hour Tylenol 650 mg every 6 hours when necessary for fever and/or pain Respiratory: Acute hypoxemic respiratory failure HCAP 04/10/17-emergently intubated a 8.0 ETT 24 cm at the [facility] Duo nebs every 4 hours when necessary for wheezing Ventilator bundle Sputum culture follow-up results Recently hospitalized with right lower lobe pneumonia on vancomycin and Zosyn and oxacillin which was discontinued 03/18/17 Cardiovascular: History of A. fib on chronic anticoagulation Coronary artery disease status post coronary stents 2, an aortic stent x2 History of CHF History of hypertension Cardiomegaly Septic shock A. fib RVR Patient continues on norepinephrine, phenylephrine, and vasopressin to maintain MAP > 65 Hold Coumadin in the setting of active bleeding -reportedly family states patient stopped Coumadin on 02/28/17. INR on admission 1.6 Initial troponin 0.03->0.31 1 EKG sinus bradycardia with first-degree AV block septal IA Vitamin K 10 mg 1 dose IV Continue pravastatin 40 mg/day Last echo 02/03/16 EF 60-65% 04/11 ECHO- EF 60-65% No RWMA, Mod Pulm HTN 04/12 amiodarone bolus with 1:1 conversion , will continue amiodarone infusion 1/6-cardiology consulted. Dr. Barclay following Renal: BPH Hold Flomax in the setting of hypotension Maintain White -- Strict I/Os FEN/GI: Acute kidney injury 2/2 hypotension Chronic kidney disease stage III Perinephric hemorrhage 8.5 cm Possible retroperitoneal hemorrhage Left renal cyst Urolithiasis Elevated BUN possibly secondary to active bleeding Metabolic acidosis Electrolyte derangement Severe protein calorie malnutrition GI bleed Fluid overload Chronic pancreatitis Ascites OGT clamped Patient Hemoccult positive this admission, Hemoccult positive last admission status post panendoscopy with benign findings GI signed off 04/13, plan to reinitiate consult when patient hemodynamically stable for probable panendoscopy Nephrology following Monitor BMP Hypocalcemia ,hypomagnesemia -repletion provided Zofran for nausea Albumin 1.1 04/11 amylase, lipase WNL Heme/ID: HCAP right lower lobe Septic shock with multiorgan system failure Pleural effusion Bandemia Acute blood loss anemia Thrombocytopenia Urosepsis Patient received Zosyn and vancomycin in the Continue to monitor CBC ID following-. Dr. Haro Antibiotic management per ID /2 Blood cultures- strep pneumo /-urine culture-E coli Follow-up sputum cultures /2 Legionella and pneumococcal antigen-negative 04/10- influenza antigen-negative / Transfuse 1 unit of packed red blood cells, 04/14 transfuse 2 units of platelets 04/12 platelet count 47-transfuse 1 unit of platelets, maintain platelet count of 50,000 / Discussed with Dr. Sanabria , invasive radiology possible retroperitoneal hemorrhage, images reviewed states possibly an abscess versus retroperitoneal hemorrhage. Continue monitoring closely hemoglobin and hematocrit, declines plan for possible emergent intervention 04/12 US abdomen-chronic pancreatitis, 8 cm cystic mass posterior to right kidney abscess or hematoma, mild ascites Endocrine: Diabetes mellitus Glucose monitoring per ICU protocol, low dose regimen TSH WNL 3.050 MSK: Stage II gluteal/ sacral ulcers Obtain wound care consult-follow up recommendations -- SSI Prophylaxis: GI Prophylaxis Protonix infusion DVT Prophylaxis -- SCDs Hold Coumadin in the setting of possible bleed Lines: Right IJ central line, left radial arterial line (04/10/17) Dispo: my billing statement This patient remains critically ill with one or more organ systems which are or may become a threat to life. I have spent in excess of 45 minutes discontinuously in the care and management of this patient. This time is exclusive of procedures, and includes, but is not limited to, evaluation of the patient, review of the medical record, discussions with family, consultants, nursing staff, or respiratory therapy, and documentation in the medical record. Patient has multisystem organ failure, prognosis is poor. D/W COOK CHEF at bedside (Brianne), and family/ daughter (Mechelle) , patient was made alternate CODE STATUS intubation and defibrillation only all questions answered. And for initiation of comfort care measures/ventilator withdrawal for tentative 04/15/2017 or 04/16/2017, per family's request. Physician Lily Casey MD Apr 14, 2017 14:35
[2017-04-14] MEDS: SODIUM CHLORIDE 1 GRAM TAB PO SCH (14:56)
[2017-04-14] MEDS ORDERED: CALCIUM GLUCONATE INJ 2 GM in SODIUM CHLORIDE 0.9% INJ 100 ML IV ONE (15:00)
[2017-04-14] MEDS ORDERED: SODIUM BICARBONATE 8.4% INJ 50 MEQ/50 ML SYR IV PUSH ONE (15:00)
[2017-04-14] MEDS: cefTRIAXone INJ 2,000 MG in SODIUM CHLORIDE 0.9% INJ 100 ML IV SCH (18:09)
[2017-04-15] VITALS (18 sets, daily range): BP systolic 88–112; BP diastolic 51–68; PULSE 50–106; RESP 12–16; O2SAT 99–100
[2017-04-15] MEDS: CHLORHEXIDINE GLUCONATE 2 % 1 PACK (2 CLOTHS) TOP SCH ×2 (01:34→19:08)
[2017-04-15] MEDS: AMIODARONE INJ 450 MG in SODIUM CHLOR 0.9% (EXCEL) INJ 241 ML IV PRN ×2 (02:54→18:55)
[2017-04-15] MEDS: PANTOPRAZOLE INJ 80 MG in SODIUM CHLORIDE 0.9% INJ 100 ML IV SCH ×3 (02:54→21:55)
[2017-04-15] MEDS: RESP: ALBUTEROL 2.5 MG/IPRATROPIUM 0.5 MG NEB (SCH) NEB ×4 (03:58→20:48)
[2017-04-15] MEDS: HYDROCORTISONE SOD SUCCINATE 100 MG VIAL IV PUSH SCH ×3 (04:05→21:55)
--- NOTE | 2017-04-15 05:04 | RADRPT ---
EXAM DATE/TIME: 04/15/2017 04:16 [facility] COMPARISON: CHEST SINGLE AP, April 14, 2017, 3:10. INDICATIONS : Shortness of breath, possible pulmonary disease. MEDICAL HISTORY : Congestive heart failure. Pancreatitis. SURGICAL HISTORY : Tonsillectomy. Cholecystectomy. Coronary artery stent. Thoracic aneurysm repair ENCOUNTER: Subsequent ACUITY: 1 week PAIN SCORE: Non-responsive. LOCATION: Bilateral chest FINDINGS: Single AP view of the chest. Aortic stent again noted. Endotracheal tube, nasogastric tube, and right IJ central venous catheter remain in place. Persistent bilateral pulmonary parenchymal opacity right greater than left. Small bilateral pleural effusions unchanged. CONCLUSION: No significant interval change. Persistent right greater than left pulmonary parenchymal opacity and small bilateral pleural effusions. Jorden Mckeon MD on April 15, 2017 at 5:02 Board Certified Radiologist. This report was verified electronically.
[2017-04-15 06:52] LABS: HEMOGLOBIN 7.8 GM/DL (13.0-17.0); MEAN CELL VOLUME 86.1 FL (80.0-100.0); MEAN CORPUSCULAR HEMOGLOBIN 29.1 PG (27.0-34.0); MEAN CORPUSCULAR HGB CONC 33.8 % (32.0-36.0); MEAN PLATELET VOLUME 8.2 FL (7.0-11.0); PLATELET COUNT 63 TH/MM3 (150-450); RED BLOOD COUNT 2.67 MIL/MM3 (4.50-5.90); WHITE BLOOD COUNT 12.3 TH/MM3 (4.0-11.0)
[2017-04-15 07:00] LABS: BICARBONATE 22.9 MEQ/L (21.0-32.0); CALCIUM 5.8 MG/DL (8.5-10.1); CREATININE 4.16 MG/DL (0.60-1.30); MAGNESIUM 1.8 MG/DL (1.5-2.5); RANDOM VANCOMYCIN 18.3 COMMENT
[2017-04-15 07:08] LABS: INTERNATIONAL NORMALIZED RATIO 1.3 RATIO; PROTHROMBIN TIME - PATIENT 13.3 SEC (9.8-11.6)
[2017-04-15 07:48] LABS: TOTAL PROTEIN 4.5 GM/DL (6.4-8.2)
[2017-04-15] MEDS: LACTULOSE SYRUP 20 GM/30 ML CUP PO SCH (08:49)
[2017-04-15] MEDS: DOCUSATE SODIUM 50 MG/SENNA 8.6 MG TAB PO SCH ×2 (08:49→20:27)
[2017-04-15] MEDS: FAMOTIDINE 20 MG TAB PO SCH ×2 (08:49→21:00)
[2017-04-15] MEDS: SODIUM CHLORIDE 1 GRAM TAB PO SCH (09:00)
[2017-04-15] MEDS: SODIUM CHLORIDE 0.9% FLUSH 10 ML FLUSH IV FLUSH SCH ×2 (09:00→19:43)
[2017-04-15] MEDS: INSULIN ASPART SUPPLEMENTAL SCALE SQ SCH ×4 (09:23→19:44)
[2017-04-15] MEDS: PHENYLEPHRINE INJ 160 MG in DEXTROSE 5% IN WATE 500 ML INJ 484 ML IV PRN ×2 (11:09)
[2017-04-15] MEDS: VASOPRESSIN 40 U/D5W 100 ML Titrate, Post Cardiac Surgery IV PRN ×2 (11:10)
[2017-04-15] MEDS: fentaNYL DRIP 250 ML IV PRN (11:20)
[2017-04-15] MEDS ORDERED: VANCOMYCIN INJ 1,500 MG in SODIUM CHLORID 0.9% 500 ML INJ 500 ML IV ONE (12:00)
--- NOTE | 2017-04-15 12:13 | HHI.NPPN ---
Subjective History of Present Illness 71-year-old male with history of chronic kidney disease, now with acute renal failure, multiorgan failure, septic and hemorrhagic shock Objective Data Data Vital Signs Date Time Temp Pulse Resp B/P (MAP) Pulse Ox O2 Delivery O2 Flow Rate FiO2 04/15/17 12:00 105 04/15/17 12:00 98.8 82 16 88/51 (63) 100 04/15/17 12:00 40 04/15/17 11:10 77 87/59 04/15/17 11:09 77 87/59 04/15/17 10:00 105 04/15/17 08:40 100 60 04/15/17 08:00 40 04/15/17 08:00 105 04/15/17 08:00 97.3 50 16 106/58 (74) 100 04/15/17 06:00 90 04/15/17 04:00 40 04/15/17 04:00 59 04/15/17 04:00 98.6 59 16 112/57 (75) 100 04/15/17 03:56 100 40 04/15/17 02:54 60 113/56 04/15/17 02:00 59 04/15/17 01:27 100 40 04/15/17 00:00 40 04/15/17 00:00 100.0 58 16 101/53 (69) 100 04/15/17 00:00 58 04/14/17 22:00 58 04/14/17 21:04 100 40 04/14/17 20:38 50 100/57 04/14/17 20:00 48 04/14/17 20:00 98.2 48 15 99/53 (68) 100 04/14/17 20:00 40 04/14/17 19:52 100 40 04/14/17 18:00 50 04/14/17 17:00 51 04/14/17 16:00 56 04/14/17 16:00 40 04/14/17 16:00 97.0 56 16 97/55 (69) 100 04/14/17 15:11 100 40 04/14/17 15:00 97.3 47 16 96/53 (67) 04/14/17 15:00 47 04/14/17 14:00 97.3 51 16 96/55 (69) 100 04/14/17 14:00 51 04/14/17 13:00 53 04/14/17 13:00 97.2 53 0 87/55 (66) 100 -: 04/15/17 0600 04/15/17 0600 Physical Exam General Appearance: Pale Neck Neck Exam: Neck Supple Pulmonary Resp Exam: Clear Bilaterally Cardiology CV Exam: Regular, Normal Sinus Rhythm Gastrointestinal/Abdomen GI Exam: Soft, Non-Tender Extremeties Extremities Exam: No Edema Assessment/Plan Problem List: (1) Acute renal failure ICD Codes: N17.9 - Acute kidney failure, unspecified Status: Acute Plan: Patient appears to have acute tubular necrosis Oliguria Multiorgan failure Severe acidosis Hemorrhagic and septic shock On vasopressors retro peritoneal bleed Poor prognosis Cr higher Continue supportive care urine output remains low Ecoli UTI Strep Pneumoniae sepsis d/w family doing poorly d/w Dr Arroyo yesterday all agree to withdraw and no dialysis Cr 4.16 poor outcome nephrology to sign off (2) Metabolic acidosis ICD Codes: E87.2 - Acidosis Plan: On bicarbonate (3) Hemorrhagic shock ICD Codes: R57.8 - Other shock Plan: Monitor hemoglobin may need transfusion (4) Septic shock ICD Codes: A41.9 - Sepsis, unspecified organism; R65.21 - Severe sepsis with septic shock Plan: On antibiotic Levaquin, Zosyn and Zithromax (5) Acute blood loss anemia ICD Codes: D62 - Acute posthemorrhagic anemia Status: Resolved Plan: As above (6) Sepsis ICD Codes: A41.9 - Sepsis, unspecified organism Status: Acute Problem Qualifiers (1) Sepsis: Qualified Codes: A41.9 - Sepsis, unspecified organism Cecilio Howard MD Apr 15, 2017 12:13
[2017-04-15] MEDS: AZITHROMYCIN INJ 500 MG in SODIUM CHLOR 0.9% 250 ML INJ 250 ML IV SCH (15:10)
--- NOTE | 2017-04-15 16:52 | HHI.CCPN ---
Subjective Remarks/Hospital Course This is a 71-year-old male that presented to the ED for altered mental status. The patient's past medical history is significant for A. fib and the patient is on on chronic anticoagulation therapy with coumadin. The patient's past medical history also includes AAA, anxiety, CAD, CHF, COPD, CKD, DM, anemia presents to the ED . Per EMS report, the patient initially responded to the call for SOB but upon arrival, pt was found to be hypotensive. The family reported altered mental status, upon presentation to the ED the patient is AAOx2 and states that his right side hurts. The patient has not eaten or taken any meds for over 48 hours and then the family reportedly gave all his meds last night at 2100 .He was admitted 02/28-03/20/17 for GI bleed and had panendoscopy that showed no active bleeding but has peptic duodenitis, and underwent IR embolization for perinephric hemorrhage at that time. Pt also had perinephric hematoma s/p IR embolization and had HCAP. Pt was discharge from rehab about 1 week ago inability to ambulate. He does complain of black stool when asked. Laboratory and imaging studies were performed in the ED which showed 12% bandemia, patient previously hospitalized at recent discharge 2016 with right lower lobe pneumonia, and positive Hemoccult 02/2017, as well as this admission. 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 The patient's previous hospitalization revealed a spine obtained hemorrhage of the right mid pole kidney 6.5 cm the head increased to 8.[address] of the abdomen and pelvis today reveal no change in size of 8.5 cm in the right midpole of the kidney however there is a fluid collection well-defined in the psoas muscle area. Patient reportedly was hypotensive and received in the ED 2 L of normal saline, as well as Zosyn and vancomycin. Upon entering the patient's room in the ED the patient was noted to have blood pressures mid 90s/50s with a heart rate of 61 O2 saturation on 2 L was approximately 95%. The patient was noted to be lethargic, but easily arousable. Flow was noted to be 61 and the patient is receiving D50 one amp, the patient was noted to have significantly elevated creatinine with the BUN of 52 and currently receiving bolus of IV fluids. Subjective: 04/11: Afebrile .on arrival to the ICU the patient was emergently intubated , secondary to unresponsiveness, and required multiple pressors continues only Levophed,phenylephrine and vasopressin infusions. Patient continues on sodium bicarbonate infusion, with severe metabolic acidosis. Hemoglobin stabilize after 1 unit of PRBC's. Persistent bandemia, cultures revealed gram-positive cocci. ID consulted. 04/12: Afebrile. Last evening, the patient began to have episodes of sinus bradycardia requiring increasing doses of norepinephrine throughout the night currently at 20 mcgs, unable to be transported for CT of the abdomen and pelvis. The patient continues on multiple pressors at this time with continued metabolic acidosis. Microbiology results revealed urine gram-negative rods and gram-positive cocci bacteremia patient on broad-spectrum antibiotics ID has been consulted and awaiting recommendations. Patient's renal and hepatic function continues to decline. Ultrasound of abdomen ordered this a.m., 2/2 hemodynamic instability patient unable to have repeat CT scan of abdomen and pelvis last evening. Suitable electrolyte derangements early this a.m. currently being repleted. The patient went into A. fib RVR with a heart rate of 150, was bolused with amiodarone and currently on amiodarone infusion. 04/13: Afebrile. Metabolic acidosis resolved. The patient continues to be hyponatremic will continue to monitor, with electrolyte derangements. Phenylephrine has been discontinued. The patient continues on Neosynephrine and vasopressin. NG tube has been clamped minimal output overnight approximately 50 cc of bilious secretions. GI has signed off because of the patient's hemodynamic instability will like to perform invasive procedures panendoscopy when patient becomes hemodynamically stable. 04/14: Afebrile. Throughout the night the patient continued to go into A. fib RVR resulting in resumption of amiodarone infusion. The patient also went into episodes of ventricular tachycardia. The patient continues on Deven-Synephrine and vasopressin for vasopressor support. The patient has become severely thrombocytopenic and received 2 units of platelets. The patient continues to have electrolyte derangements which are being repleted. Discussion with the patient's daughter Mechelle, with her 2 brothers telephonically, she informed me that they requested alternate CODE STATUS. Intubation and shocks only. Further discussion elicited that they would like perhaps ventilator withdrawal/comfort care measures instituted tentatively tomorrow or Sunday04/16/2017. Patient remains oliguric, nephrology following. 04/15: Patient remains oliguric. The patient continues on multiple vasopressors to include phenylephrine, vasopressin and amiodarone for rate control. No change in clinical status at this time. The patient remains thrombocytopenic platelet count 63. Discussion with family today plan for institution of comfort care measures last ventilator withdrawal tentatively Sunday04/16/2017 in the evening. Objective Vital Signs Date Time Temp Pulse Resp B/P (MAP) Pulse Ox O2 Delivery O2 Flow Rate FiO2 04/15/17 15:15 99 40 04/15/17 14:00 105 04/15/17 12:00 98.8 16 88/51 (63) Intake and Output 04/15/17 04/15/17 04/16/17 08:00 16:00 00:00 Intake Total 350 ml 500 ml Output Total 30 ml Balance 320 ml 500 ml Result Diagram: 04/15/17 0600 04/15/17 06 Other Results Microbiology Date/Time Source Procedure Growth Status 04/13/17 12:15 Stool Stool Stool Occult Blood ([facility]) - Final HEMOCCULT POSITIVE Complete Imaging Last Impressions Chest X-Ray 04/15/17 0600 Signed Impressions: Service Date/Time: Saturday, April 15, 2017 04:16 - CONCLUSION: No significant interval change. Persistent right greater than left pulmonary parenchymal opacity and small bilateral pleural effusions. Jorden Mckeon MD Abdomen Ultrasound 04/12/17 0000 Signed Impressions: Service Date/Time: April 09:23 - CONCLUSION: 1. 8 cm cystic mass posterior to the right kidney which may reflect abscess or hematoma. This would be accessible to percutaneous biopsy. 2. Chronic pancreatitis 3. Mild ascites 1. Theo Sanabria MD Head CT 04/10/17 0000 Signed Impressions: Service Date/Time: Monday, April 10, 2017 09:20 - CONCLUSION: Unremarkable study. Jesús. Lio Pillai MD Abdomen/Pelvis CT 04/10/17 0000 Signed Impressions: Service Date/Time: Monday, April 10, 2017 09:20 - CONCLUSION: 1. The right lung base consolidation not present previously characteristic of pneumonia possibility of aspiration should be entertained in the appropriate clinical setting. 2. Bladder stone. 3. The previously seen right perinephric well- defined hemorrhage has not significantly changed and the patient has undergone embolization since that time. 4. The fluid collection which is well defined within the psoas muscle has increased in size slightly may represent retroperitoneal hemorrhages evolving and could be followed. 5. Retroperitoneal lymph nodes are similar not changed since 11/2016. Eduard iPllai MD Last Impressions Chest X-Ray 04/14/17 0600 Signed Impressions: Service Date/Time: Friday, April 14, 2017 03:10 - CONCLUSION: No significant interval change. Persistent right greater than left lung opacity. Jorden Mckeon MD Abdomen Ultrasound 04/12/17 0000 Signed Impressions: Service Date/Time: April 09:23 - CONCLUSION: 1. 8 cm cystic mass posterior to the right kidney which may reflect abscess or hematoma. This would be accessible to percutaneous biopsy. 2. Chronic pancreatitis 3. Mild ascites 1. Theo Sanabria MD Head CT 04/10/17 0000 Signed Impressions: Service Date/Time: Monday, April 10, 2017 09:20 - CONCLUSION: Unremarkable study. Eduard Pillai MD Abdomen/Pelvis CT 04/10/17 0000 Signed Impressions: Service Date/Time: Monday, April 10, 2017 09:20 - CONCLUSION: 1. The right lung base consolidation not present previously characteristic of pneumonia possibility of aspiration should be entertained in the appropriate clinical setting. 2. Bladder stone. 3. The previously seen right perinephric well- defined hemorrhage has not significantly changed and the patient has undergone embolization since that time. 4. The fluid collection which is well defined within the psoas muscle has increased in size slightly may represent retroperitoneal hemorrhages evolving and could be followed. 5. Retroperitoneal lymph nodes are similar not changed since 11/2016. Eduard Pillai MD Last Impressions Head CT 04/10/17 0000 Signed Impressions: Service Date/Time: Monday, April 10, 2017 09:20 - CONCLUSION: Unremarkable study. Eduard Pillai MD Chest X-Ray 04/10/17 0000 Signed Impressions: Service Date/Time: Monday, April 10, 2017 09:02 - CONCLUSION: 1. Diffuse infiltrates involving the right lung consistent with probable pneumonia. 2. Cardiomegaly. Storm Weiner MD Abdomen/Pelvis CT 04/10/17 0000 Signed Impressions: Service Date/Time: Monday, April 10, 2017 09:20 - CONCLUSION: 1. The right lung base consolidation not present previously characteristic of pneumonia possibility of aspiration should be entertained in the appropriate clinical setting. 2. Bladder stone. 3. The previously seen right perinephric well- defined hemorrhage has not significantly changed and the patient has undergone embolization since that time. 4. The fluid collection which is well defined within the psoas muscle has increased in size slightly may represent retroperitoneal hemorrhages evolving and could be followed. 5. Retroperitoneal lymph nodes are similar not changed since 11/2016. Eduard Pillai MD Objective Remarks Infusions: Phenylephrine-60 mcgs Norepinephrine off Amiodarone 0.5mg/hr Vasopressin 0.04u/hr Fentanyl 150 mcgs/hr GENERAL: Critically ill-appearing malnourished, male intubated and sedated SKIN: Warm and dry. HEAD: Atraumatic. Normocephalic. EYES: Pupils equal and round. No scleral icterus. No injection or drainage. ENT: No nasal bleeding or discharge. Mucous membranes pink and dry. NECK: Trachea midline. No JVD. CARDIOVASCULAR: Normal rate, regular rhythm. RESPIRATORY: No accessory muscle use. Clear to auscultation. Breath sounds equal bilaterally. GASTROINTESTINAL: Abdomen soft, non-tender, nondistended. No guarding. MUSCULOSKELETAL: Extremities without clubbing, cyanosis, or edema. No obvious deformities. NEUROLOGICAL: Intubated and sedated RASS -2. Alert and oriented 2 No gross focal/sensory deficits. Not following commands but spontaneously moving extremities x4 Urinary Catheter: Yes White insert reason: Measure Accurate Output Date of Insertion: Apr 10, 2017 Date of Insertion: Apr 10, 2017 Side: Right Location: Internal, Jugular A/P Assessment and Plan This is a 71-year-old debilitated critically ill-appearing male in septic shock with multisystem organ failure. Prognosis is guarded at this time. Plan by systems: Neurologic: Metabolic encephalopathy Neurochecks per ICU protocol Trend ammonia level Fentanyl infusion for sedation for ventilator synchrony, currently at 100 mics/ hour Tylenol 650 mg every 6 hours when necessary for fever and/or pain Respiratory: Acute hypoxemic respiratory failure HCAP 04/10/17-emergently intubated a 8.0 ETT 24 cm at the lip Duo nebs every 4 hours when necessary for wheezing Ventilator bundle Sputum culture follow-up results Recently hospitalized with right lower lobe pneumonia on vancomycin and Zosyn and oxacillin which was discontinued 03/18/17 Cardiovascular: History of A. fib on chronic anticoagulation Coronary artery disease status post coronary stents 2, an aortic stent x2 History of CHF History of hypertension Cardiomegaly Septic shock A. fib RVR Patient continues on norepinephrine, phenylephrine, and vasopressin to maintain MAP > 65 Hold Coumadin in the setting of active bleeding -reportedly [facility] patient stopped Coumadin on 02/28/17. INR on admission 1.6 Initial troponin 0.03->0.31 04/10 EKG sinus bradycardia with first-degree AV block septal DE Vitamin K 10 mg 1 dose IV Continue pravastatin 40 mg/day Last echo 02/03/16 EF 60-65% 04/11 ECHO- EF 60-65% No RWMA, Mod Pulm HTN 04/12 amiodarone bolus with 1:1 conversion , will continue amiodarone infusion 04/14-cardiology consulted. Dr. Barclay following Renal: BPH Hold Flomax in the setting of hypotension Maintain White -- Strict I/Os FEN/GI: Acute kidney injury 2/2 hypotension Chronic kidney disease stage III Perinephric hemorrhage 8.5 cm Possible retroperitoneal hemorrhage Left renal cyst Urolithiasis Elevated BUN possibly secondary to active bleeding Metabolic acidosis Electrolyte derangement Severe protein calorie malnutrition GI bleed Fluid overload Chronic pancreatitis Ascites OGT clamped Patient Hemoccult positive this admission, Hemoccult positive last admission status post panendoscopy with benign findings GI signed off 04/13, plan to reinitiate consult when patient hemodynamically stable for probable panendoscopy Nephrology following. Creatinine 4.1 Monitor BMP Zofran for nausea 5 Hemoccult-positive Albumin 1.1 / amylase, lipase WNL Heme/ID: HCAP right lower lobe Septic shock with multiorgan system failure Pleural effusion Bandemia Acute blood loss anemia Thrombocytopenia Urosepsis Patient received Zosyn and vancomycin in the Continue to monitor CBC ID following-. Dr. Haro Antibiotic management per ID 1/2 Blood cultures- strep pneumo 1/2-urine culture-E coli Follow-up sputum cultures 1/2 Legionella and pneumococcal antigen-negative /- influenza antigen-negative / Transfuse 1 unit of packed red blood cells, 04/14 transfuse 2 units of platelets 1/4 platelet count 47-transfuse 1 unit of platelets, maintain platelet count of 50,000, 04/14 Plt count 40 -2 units Plts transfused 04/[address] Sanabria , invasive radiology possible retroperitoneal hemorrhage, images reviewed states possibly an abscess versus retroperitoneal hemorrhage. Continue monitoring closely hemoglobin and hematocrit, declines plan for possible emergent intervention 04/12 US abdomen-chronic pancreatitis, 8 cm cystic mass posterior to right kidney abscess or hematoma, mild ascites Endocrine: Diabetes mellitus Glucose monitoring per ICU protocol, low dose regimen TSH WNL 3.050 MSK: Stage II gluteal/ sacral ulcers Obtain wound care consult-follow up recommendations -- SSI Prophylaxis: GI Prophylaxis Protonix infusion DVT Prophylaxis -- SCDs No Chemical DVT prophylaxis in the setting of severe thrombocytopenia Lines: Right IJ central line, left radial arterial line (04/10/17- 04/13/17) Dispo: my billing statement This patient remains critically ill with one or more organ systems which are or may become a threat to life. I have spent in excess of 40 minutes discontinuously in the care and management of this patient. This time is exclusive of procedures, and includes, but is not limited to, evaluation of the patient, review of the medical record, discussions with family, consultants, nursing staff, or respiratory therapy, and documentation in the medical record. Patient has multisystem organ failure, prognosis is poor. D/W INTERDISCIPLINARY PROFESSOR at bedside (Brianne), and family/ daughter (Mechelle) , patient was made alternate CODE STATUS intubation and defibrillation only all questions answered. 04/15 Discussion with Mechelle comfort care measures/ventilator withdrawal for tentative for 04/16/2017, at 1700 per family's request. Daughter at bedside, all questions answered Physician Lily Casey MD Apr 15, 2017 16:52
[2017-04-15] MEDS: cefTRIAXone INJ 2,000 MG in SODIUM CHLORIDE 0.9% INJ 100 ML IV SCH (19:43)
[2017-04-16] VITALS (15 sets, daily range): BP systolic 88–163; BP diastolic 53–69; PULSE 59–135; RESP 18–23; O2SAT 99–100
[2017-04-16] MEDS: RESP: ALBUTEROL 2.5 MG/IPRATROPIUM 0.5 MG NEB (SCH) NEB ×2 (04:23→08:52)
[2017-04-16] MEDS: HYDROCORTISONE SOD SUCCINATE 100 MG VIAL IV PUSH SCH ×2 (05:59→15:05)
[2017-04-16] MEDS: VASOPRESSIN 40 U/D5W 100 ML Titrate, Post Cardiac Surgery IV PRN ×2 (06:17)
[2017-04-16 06:45] LABS: HEMATOCRIT 25.1 % (39.0-51.0); HEMOGLOBIN 8.1 GM/DL (13.0-17.0); MEAN CELL VOLUME 86.7 FL (80.0-100.0); MEAN CORPUSCULAR HEMOGLOBIN 28.1 PG (27.0-34.0); MEAN CORPUSCULAR HGB CONC 32.4 % (32.0-36.0); MEAN PLATELET VOLUME 8.9 FL (7.0-11.0); PLATELET COUNT 62 TH/MM3 (150-450); RED BLOOD COUNT 2.89 MIL/MM3 (4.50-5.90); RED CELL DISTRIBUTION WIDTH 16.9 % (11.6-17.2); WHITE BLOOD COUNT 14.5 TH/MM3 (4.0-11.0)
[2017-04-16 07:04] LABS: BICARBONATE 19.8 MEQ/L (21.0-32.0); CALCIUM 5.6 MG/DL (8.5-10.1); CREATININE 4.48 MG/DL (0.60-1.30); MAGNESIUM 1.8 MG/DL (1.5-2.5); PHOSPHORUS 5.6 MG/DL (2.5-4.9)
[2017-04-16 07:23] LABS: TOTAL PROTEIN 4.5 GM/DL (6.4-8.2)
[2017-04-16] MEDS: AMIODARONE INJ 450 MG in SODIUM CHLOR 0.9% (EXCEL) INJ 241 ML IV PRN (07:36)
[2017-04-16] MEDS: PANTOPRAZOLE INJ 80 MG in SODIUM CHLORIDE 0.9% INJ 100 ML IV SCH (07:36)
[2017-04-16 07:42] LABS: CALCIUM-PROTEIN CORRECTED 6.7 MG/DL (8.5-10.1)
[2017-04-16] MEDS: DOCUSATE SODIUM 50 MG/SENNA 8.6 MG TAB PO SCH (07:58)
[2017-04-16] MEDS: LACTULOSE SYRUP 20 GM/30 ML CUP PO SCH (07:58)
[2017-04-16] MEDS: fentaNYL DRIP 250 ML IV PRN (07:58)
[2017-04-16] MEDS: FAMOTIDINE 20 MG TAB PO SCH (07:58)
[2017-04-16] MEDS: INSULIN ASPART SUPPLEMENTAL SCALE SQ SCH ×2 (08:00→12:00)
[2017-04-16] MEDS: SODIUM CHLORIDE 0.9% FLUSH 10 ML FLUSH IV FLUSH SCH (09:00)
[2017-04-16] MEDS: SODIUM CHLORIDE 1 GRAM TAB PO SCH (09:00)
--- NOTE | 2017-04-16 10:46 | HHI.HCPN ---
Reason for visit a. To assist with evaluation and management of symptoms including: Dyspnea, pain b. To assist medical decision maker(s) with: better understanding of current medical conditions; weighing benefits/burdens of medical treatment options; making medical treatment decisions. Subjective/Interval History This is a 71-year-old male with sepsis, A. fib, wide complex tachyarrhythmia, VDRF who has continued to decline over his hospitalization. He is requiring multiple vasopressors and remains tachycardic and hypotensive. He has multiple comorbidities to include COPD, CKD, diabetes, congestive heart failure and GI bleed. Extensive discussions of been held with the family by physicians and palliative care. The family now feels that the patient is suffering and is not going to recover to his prior status. Family is now requesting that patient be converted to comfort care with planned withdrawal of ventilator support today at 5 PM. He has been made and alternative code to continue intubation and defibrillation only. . Family/friend interactions Spoke with the daughter, Mechelle via telephone, provided supportive listening and anticipatory guidance regarding upcoming withdrawal. Discussed with Dr. Arroyo agrees that patient is continuing to decline and chance of recovery is very poor. The family feels that the patient would not wish to exist in this state and given his poor quality of life have requested withdrawal of ventilator support. Exhibits are on the chart pending review of consulting physician prior to signature. . Advance Directives Living Will: Never completed Health Care Surrogate: Never completed Durable Power of Wired Sweatband Cutter: Never completed Objective Vital Signs Date Time Temp Pulse Resp B/P (MAP) Pulse Ox O2 Delivery O2 Flow Rate FiO2 04/16/17 08:52 100 35 04/16/17 08:00 98.8 135 18 89/56 (67) 99 04/16/17 08:00 114 04/16/17 08:00 40 04/16/17 07:36 127 107/66 04/16/17 06:17 122 120/61 04/16/17 06:00 87 04/16/17 04:23 100 40 04/16/17 04:00 40 04/16/17 04:00 77 04/16/17 04:00 100.0 77 23 163/69 (100) 99 04/16/17 02:00 66 04/16/17 00:30 100 40 04/16/17 00:00 59 04/16/17 00:00 40 04/16/17 00:00 100.4 59 18 140/61 (87) 100 04/15/17 22:00 70 04/15/17 20:48 100 40 04/15/17 20:00 106 04/15/17 20:00 99.9 106 12 104/68 (80) 100 04/15/17 20:00 40 04/15/17 18:55 118 112/70 04/15/17 18:00 105 04/15/17 18:00 108 97/62 04/15/17 16:00 99.1 81 14 88/51 (63) 100 04/15/17 16:00 40 04/15/17 16:00 105 04/15/17 15:15 99 40 04/15/17 14:00 105 04/15/17 12:20 100 40 04/15/17 12:00 105 04/15/17 12:00 98.8 82 16 88/51 (63) 100 04/15/17 12:00 40 04/15/17 11:10 77 87/59 04/15/17 11:09 77 87/59 Intake & Output 04/16/17 04/16/17 07:00 19:00 Intake Total 300 ml Output Total 50 ml Balance 250 ml IV Total 300 ml Output Urine Total 50 ml # Bowel Movements 1 Physical Exam CONSTITUTIONAL/GENERAL: This is an adequately nourished patient, intubated, sedated. TUBES/LINES/DRAINS: Left radial arterial line, Right IJ CVL, left AC PIV, ETT, OGT, White SKIN: No jaundice, rashes, or lesions. Ecchymoses on upper extremities. No wounds seen anteriorly. Skin temperature warm, under warming blanket. Not diaphoretic. HEAD: Atraumatic. Normocephalic. EYES: Pupils equal and round and reactive. No scleral icterus. No injection or drainage. Fundi not examined. ENT: Orally intubated. NECK: Trachea midline. Supple, nontender. No palpable thyroid enlargement or nodularity. CARDIOVASCULAR: Distant heart sounds, S1-S2, irregular rhythm, tachycardic rate without murmurs, gallops, or rubs. No JVD. Peripheral pulses symmetric, diminished. RESPIRATORY/CHEST: Symmetric, unlabored respirations. Scattered rhonchi right anterior. Faint expiratory wheezing. Breath sounds equal bilaterally. GASTROINTESTINAL: Abdomen soft, nondistended. No hepato-splenomegaly, or palpable masses. Bowel sounds hypoactive. GENITOURINARY: Without palpable bladder distension. White catheter in place with minimal cloudy urine drainage. MUSCULOSKELETAL: 2+ edema in all 4 extremities. Extremities without clubbing or cyanosis. No joint tenderness or effusion noted. No mottling or clubbing. NEUROLOGICAL: Intubated, sedated. PSYCHIATRIC: Sedated. . Diagnostic Tests Laboratory Laboratory Tests Test 04/13/17 12:15 04/13/17 15:55 04/13/17 16:40 04/14/17 05:25 Stool C. difficile Toxin (PCR) NEGATIVE (NEGATIVE) Stl C. difficile Toxin Epiderm 027 PRESUMPTIVE NEGATIVE Hemoglobin 7.3 GM/DL (13.0-17.0) Hematocrit 21.3 % (39.0-51.0) Blood Urea Nitrogen 55 MG/DL (7-18) Creatinine 3.57 MG/DL (0.60-1.30) Random Glucose 117 MG/DL (74-106) Total Protein 4.0 GM/DL (6.4-8.2) Albumin 1.0 GM/DL (3.4-5.0) Calcium Level 5.7 MG/DL (8.5-10.1) Alkaline Phosphatase 81 U/L (45-117) Aspartate Amino Transf (AST/SGOT) 77 U/L (15-37) Alanine Aminotransferase (ALT/SGPT) 35 U/L (12-78) Total Bilirubin 0.5 MG/DL (0.2-1.0) Sodium Level 131 MEQ/L (136-145) Potassium Level 3.6 MEQ/L (3.5-5.1) Chloride Level 94 MEQ/L (98-107) Carbon Dioxide Level 25.9 MEQ/L (21.0-32.0) Anion Gap 11 MEQ/L (5-15) Estimat Glomerular Filtration Rate 17 ML/MIN (>89) Protein Corrected Calcium 7.1 MG/DL (8.5-10.1) Magnesium Level 1.6 MG/DL (1.5-2.5) Blood Gas Puncture Site LT RADIAL Blood Gas Patient Temperature 98.6 Blood Gas HCO3 21 mmol/L (22-26) Blood Gas Base Excess -4.4 mmol/L (-2-2) Blood Gas Oxygen Saturation 94 % (90-100) Arterial Blood pH 7.28 (7.380-7.420) Arterial Blood Partial Pressure CO2 47 mmHg (38-42) Arterial Blood Partial Pressure O2 135 mmHg (61-120) Arterial Blood Oxygen Content 11.0 Vol % (12.0-20.0) Arterial Blood Carboxyhemoglobin 0.7 % (0-4) Arterial Blood Methemoglobin 2.6 % (0-2) Blood Gas Hemoglobin 8.1 G/DL (12.0-16.0) Oxygen Delivery Device VENTILATOR Blood Gas Ventilator Setting VOLUME AC Blood Gas Inspired Oxygen 50 % Test 04/14/17 05:30 04/15/17 06:00 04/16/17 06:00 White Blood Count 11.4 TH/MM3 (4.0-11.0) 12.3 TH/MM3 (4.0-11.0) 14.5 TH/MM3 (4.0-11.0) Red Blood Count 2.77 MIL/MM3 (4.50-5.90) 2.67 MIL/MM3 (4.50-5.90) 2.89 MIL/MM3 (4.50-5.90) Hemoglobin 8.0 GM/DL (13.0-17.0) 7.8 GM/DL (13.0-17.0) 8.1 GM/DL (13.0-17.0) Hematocrit 23.6 % (39.0-51.0) 23.0 % (39.0-51.0) 25.1 % (39.0-51.0) Mean Corpuscular Volume 85.3 FL (80.0-100.0) 86.1 FL (80.0-100.0) 86.7 FL (80.0-100.0) Mean Corpuscular Hemoglobin 28.8 PG (27.0-34.0) 29.1 PG (27.0-34.0) 28.1 PG (27.0-34.0) Mean Corpuscular Hemoglobin Concent 33.7 % (32.0-36.0) 33.8 % (32.0-36.0) 32.4 % (32.0-36.0) Red Cell Distribution Width 17.3 % (11.6-17.2) 17.0 % (11.6-17.2) 16.9 % (11.6-17.2) Platelet Count 29 TH/MM3 (150-450) 63 TH/MM3 (150-450) 62 TH/MM3 (150-450) Mean Platelet Volume 10.3 FL (7.0-11.0) 8.2 FL (7.0-11.0) 8.9 FL (7.0-11.0) CBC Comment AUTO DIFF Differential Total Cells Counted 100 Neutrophils % (Manual) 87 % (16-70) Band Neutrophils % 5 % (0-6) Lymphocytes % 3 % (9-44) Monocytes % 5 % (0-8) Neutrophils # (Manual) 10.5 TH/MM3 (1.8-7.7) Differential Comment FINAL DIFF MANUAL Platelet Estimate LOW (NORMAL) Platelet Morphology Comment ENLARGED (NORMAL) Basophilic Stippling MOD (NORMAL) Ovalocytes 1+ (NORMAL) Acanthocytes OCC (NORMAL) Blood Urea Nitrogen 57 MG/DL (7-18) 63 MG/DL (7-18) 70 MG/DL (7-18) Creatinine 3.68 MG/DL (0.60-1.30) 4.16 MG/DL (0.60-1.30) 4.48 MG/DL (0.60-1.30) Random Glucose 161 MG/DL (74-106) 160 MG/DL (74-106) 150 MG/DL (74-106) Total Protein 4.2 GM/DL (6.4-8.2) 4.5 GM/DL (6.4-8.2) 4.5 GM/DL (6.4-8.2) Calcium Level 5.8 MG/DL (8.5-10.1) 5.8 MG/DL (8.5-10.1) 5.6 MG/DL (8.5-10.1) Phosphorus Level 5.0 MG/DL (2.5-4.9) 5.6 MG/DL (2.5-4.9) Magnesium Level 1.8 MG/DL (1.5-2.5) 1.8 MG/DL (1.5-2.5) 1.8 MG/DL (1.5-2.5) Sodium Level 130 MEQ/L (136-145) 130 MEQ/L (136-145) 130 MEQ/L (136-145) Potassium Level 4.0 MEQ/L (3.5-5.1) 4.0 MEQ/L (3.5-5.1) 4.2 MEQ/L (3.5-5.1) Chloride Level 93 MEQ/L (98-107) 93 MEQ/L (98-107) 95 MEQ/L (98-107) Carbon Dioxide Level 22.3 MEQ/L (21.0-32.0) 22.9 MEQ/L (21.0-32.0) 19.8 MEQ/L (21.0-32.0) Anion Gap 15 MEQ/L (5-15) 14 MEQ/L (5-15) 15 MEQ/L (5-15) Estimat Glomerular Filtration Rate 16 ML/MIN (>89) 14 ML/MIN (>89) 13 ML/MIN (>89) Protein Corrected Calcium 7.1 MG/DL (8.5-10.1) 7.0 MG/DL (8.5-10.1) 6.7 MG/DL (8.5-10.1) Ammonia 26 MCMOL/L (11-32) Random Vancomycin Level 20.0 COMMENT 18.3 COMMENT Prothrombin Time 13.3 SEC (9.8-11.6) Prothromb Time International Ratio 1.3 RATIO Fibrinogen 144 mg/dL (227-377) Result Diagram: 04/16/17 0600 04/16/17 0600 Microbiology Microbiology Date/Time Source Procedure Growth Status 04/13/17 12:15 Stool Stool Stool Occult Blood ([facility]) - Final HEMOCCULT POSITIVE Complete Imaging Last Impressions Chest X-Ray 04/15/17 0600 Signed Impressions: Service Date/Time: Saturday, April 15, 2017 04:16 - CONCLUSION: No significant interval change. Persistent right greater than left pulmonary parenchymal opacity and small bilateral pleural effusions. Jorden Mckeon MD Abdomen Ultrasound 04/12/17 0000 Signed Impressions: Service Date/Time: April 09:23 - CONCLUSION: 1. 8 cm cystic mass posterior to the right kidney which may reflect abscess or hematoma. This would be accessible to percutaneous biopsy. 2. Chronic pancreatitis 3. Mild ascites 1. Theo Sanabria MD Head CT 04/10/17 0000 Signed Impressions: Service Date/Time: Monday, April 10, 2017 09:20 - CONCLUSION: Unremarkable study. Eduard Pillai MD Abdomen/Pelvis CT 04/10/17 0000 Signed Impressions: Service Date/Time: Monday, April 10, 2017 09:20 - CONCLUSION: 1. The right lung base consolidation not present previously characteristic of pneumonia possibility of aspiration should be entertained in the appropriate clinical setting. 2. Bladder stone. 3. The previously seen right perinephric well- defined hemorrhage has not significantly changed and the patient has undergone embolization since that time. 4. The fluid collection which is well defined within the psoas muscle has increased in size slightly may represent retroperitoneal hemorrhages evolving and could be followed. 5. Retroperitoneal lymph nodes are similar not changed since 11/2016. Eduard Pillai MD . Procedures 04/10-endotracheal intubation. 04/10-right IJ central line placement. 04/10-left radial arterial line placement. . 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 He served in [place] where he suffered extensive agent orange exposure. He has 2 children of his own and lives at home with them. . Spiritual: Raised Cheondoism. 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 . Legal: None noted. . Ethical issues impacting care: None noted. . Important Contacts Daughter-Mechelle Mary . Prognosis His prognosis is poor. He has had multiple hospitalizations from multiple organ dysfunction. He has a known history of coronary artery disease status post stent placement as well as severe COPD from a long history of smoking. He has chronic pancreatitis, cystic lesions in the kidneys which appear to be hemorrhagic. He requires anticoagulation due to a history of atrial fibrillation as well as bilateral pulmonary emboli. He now has strep pneumoniae a as well as a urinary tract infection. He is septic and developed wide complex tachycardia this morning with severe hemodynamic instability now requiring multiple vasopressors for maintenance of hemodynamic stability. He is currently on a ventilator for respiratory support. It is likely that he will not survive this hospitalization. . Code Status: Alternative Code (continue intubation, defibrillation if necessary ) Plan PLAN: Legal decision maker: He is currently intubated and sedated and not capacitated to make his own decisions. By [place] statutes, as he is , the majority of his adult children would be the legal decision makers. He reportedly has 2 children, a son and daughter. Only the daughter's contact information is listed. Pending return call from daughter to establish contact with son. Goals: Aggressive at this time CODE STATUS: FULL CODE SYMPTOMS: * Pain: Likely sources of pain are invasive lines, bedbound status, increased work of breathing discomfort. He is currently sedated on a fentanyl drip to manage both sedation and pain management. * Dyspnea: Has a known history of COPD, agent orange exposure and a long history of tobacco use. He now has strep pneumoniae and suspected aspiration. Family has decided that continued aggressive care is inconsistent with the patient's wishes and planned withdrawal of ventilator support has been scheduled for today at 5 PM. NOTE: I was informed by the patient's daughter, Mechelle, that her brother, Storm, has been admitted to [facility] last evening and diagnosed with pneumonia. She has requested palliative care support in arranging for her brother's transport to the bedside at the time of withdrawal. This will be discussed with the nurse and the [facility] hospitalist service to establish contact with the daughter and arrange for that. Palliative care will continue to follow the patient during hospital course as condition evolves, to assist patient/decision-maker with understanding of their medical conditions, weighing benefits/burdens of treatment options, for clarification of goals of treatment. Additionally will assist with any symptoms of palliative concern. . Attestation To help prompt me to consider important information that might be impacting today's encounter and assessment, information from prior notes written by myself or my colleagues may have been "brought forward" into today's note. My signature on this note, however, is an attestation that I personally performed the exam, history, and/or decision-making noted today, and, unless otherwise indicated, the interactions with patient, family, and staff as well as the review of records all occurred today. I also attest that the listed assessment and stated plan reflect my best clinical judgment today based on the combination of historical information, prior notes, and today's exam/ interactions. When time spent is documented, it refers only to time spent today by the signer, or if indicated, combined time spent today by collaborating physician/nurse practitioner. . Karen Iyer Apr 16, 2017 10:46
--- NOTE | 2017-04-16 14:23 | HHI.CCPN ---
Subjective Remarks/Hospital Course This is a 71-year-old male that presented to the ED for altered mental status. The patient's past medical history is significant for A. fib and the patient is on on chronic anticoagulation therapy with coumadin. The patient's past medical history also includes AAA, anxiety, CAD, CHF, COPD, CKD, DM, anemia presents to the ED . Per EMS report, the patient initially responded to the call for SOB but upon arrival, pt was found to be hypotensive. The family reported altered mental status, upon presentation to the ED the patient is AAOx2 and states that his right side hurts. The patient has not eaten or taken any meds for over 48 hours and then the family reportedly gave all his meds last night at 2100 .He was admitted 02/28-03/20/17 for GI bleed and had panendoscopy that showed no active bleeding but has peptic duodenitis, and underwent IR embolization for perinephric hemorrhage at that time. Pt also had perinephric hematoma s/p IR embolization and had HCAP. Pt was discharge from rehab about 1 week ago inability to ambulate. He does complain of black stool when asked. Laboratory and imaging studies were performed in the ED which showed 12% bandemia, patient previously hospitalized at recent discharge 2016 with right lower lobe pneumonia, and positive Hemoccult 02/2017, as well as this admission. 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 The patient's previous hospitalization revealed a spine obtained hemorrhage of the right mid pole kidney 6.5 cm the head increased to 8.[address] of the abdomen and pelvis today reveal no change in size of 8.5 cm in the right midpole of the kidney however there is a fluid collection well-defined in the psoas muscle area. Patient reportedly was hypotensive and received in the ED 2 L of normal saline, as well as Zosyn and vancomycin. Upon entering the patient's room in the ED the patient was noted to have blood pressures mid 90s/50s with a heart rate of 61 O2 saturation on 2 L was approximately 95%. The patient was noted to be lethargic, but easily arousable. Flow was noted to be 61 and the patient is receiving D50 one amp, the patient was noted to have significantly elevated creatinine with the BUN of 52 and currently receiving bolus of IV fluids. Subjective: 04/11: Afebrile .on arrival to the ICU the patient was emergently intubated , secondary to unresponsiveness, and required multiple pressors continues only Levophed,phenylephrine and vasopressin infusions. Patient continues on sodium bicarbonate infusion, with severe metabolic acidosis. Hemoglobin stabilize after 1 unit of PRBC's. Persistent bandemia, cultures revealed gram-positive cocci. ID consulted. 04/12: Afebrile. Last evening, the patient began to have episodes of sinus bradycardia requiring increasing doses of norepinephrine throughout the night currently at 20 mcgs, unable to be transported for CT of the abdomen and pelvis. The patient continues on multiple pressors at this time with continued metabolic acidosis. Microbiology results revealed urine gram-negative rods and gram-positive cocci bacteremia patient on broad-spectrum antibiotics ID has been consulted and awaiting recommendations. Patient's renal and hepatic function continues to decline. Ultrasound of abdomen ordered this a.m., 2/2 hemodynamic instability patient unable to have repeat CT scan of abdomen and pelvis last evening. Suitable electrolyte derangements early this a.m. currently being repleted. The patient went into A. fib RVR with a heart rate of 150, was bolused with amiodarone and currently on amiodarone infusion. 04/13: Afebrile. Metabolic acidosis resolved. The patient continues to be hyponatremic will continue to monitor, with electrolyte derangements. Phenylephrine has been discontinued. The patient continues on Neosynephrine and vasopressin. NG tube has been clamped minimal output overnight approximately 50 cc of bilious secretions. GI has signed off because of the patient's hemodynamic instability will like to perform invasive procedures panendoscopy when patient becomes hemodynamically stable. 04/14: Afebrile. Throughout the night the patient continued to go into A. fib RVR resulting in resumption of amiodarone infusion. The patient also went into episodes of ventricular tachycardia. The patient continues on Deven-Synephrine and vasopressin for vasopressor support. The patient has become severely thrombocytopenic and received 2 units of platelets. The patient continues to have electrolyte derangements which are being repleted. Discussion with the patient's daughter Mechelle, with her 2 brothers telephonically, she informed me that they requested alternate CODE STATUS. Intubation and shocks only. Further discussion elicited that they would like perhaps ventilator withdrawal/comfort care measures instituted tentatively tomorrow or Sunday04/16/2017. Patient remains oliguric, nephrology following. 04/15: Patient remains oliguric. The patient continues on multiple vasopressors to include phenylephrine, vasopressin and amiodarone for rate control. No change in clinical status at this time. The patient remains thrombocytopenic platelet count 63. Discussion with family today plan for institution of comfort care measures last ventilator withdrawal tentatively Sunday04/16/2017 in the evening. 04/16: No change in status overnight. Patient continues on multiple pressors , has electrolyte derangements and continues on amiodarone infusion. Plan for comfort care measures/ventilator withdrawal this afternoon. Objective Vital Signs Date Time Temp Pulse Resp B/P (MAP) Pulse Ox O2 Delivery O2 Flow Rate FiO2 04/16/17 12:44 99 35 04/16/17 12:00 98.1 102 18 88/53 (65) Intake and Output 04/16/17 04/16/17 04/17/17 08:00 16:00 00:00 Intake Total 200 ml Output Total 50 ml Balance 150 ml Result Diagram: 04/16/17 0600 04/16/17 0600 Imaging Last Impressions Chest X-Ray 04/15/17 06 Signed Impressions: Service Date/Time: Saturday, April 15, 2017 04:16 - CONCLUSION: No significant interval change. Persistent right greater than left pulmonary parenchymal opacity and small bilateral pleural effusions. Jorden Mckeon MD Abdomen Ultrasound 04/12/17 0000 Signed Impressions: Service Date/Time: April 09:23 - CONCLUSION: 1. 8 cm cystic mass posterior to the right kidney which may reflect abscess or hematoma. This would be accessible to percutaneous biopsy. 2. Chronic pancreatitis 3. Mild ascites 1. Theo Sanabria MD Head CT 04/10/17 0000 Signed Impressions: Service Date/Time: Monday, April 10, 2017 09:20 - CONCLUSION: Unremarkable study. K. Lio Pillai MD Abdomen/Pelvis CT 04/10/17 0000 Signed Impressions: Service Date/Time: Monday, April 10, 2017 09:20 - CONCLUSION: 1. The right lung base consolidation not present previously characteristic of pneumonia possibility of aspiration should be entertained in the appropriate clinical setting. 2. Bladder stone. 3. The previously seen right perinephric well- defined hemorrhage has not significantly changed and the patient has undergone embolization since that time. 4. The fluid collection which is well defined within the psoas muscle has increased in size slightly may represent retroperitoneal hemorrhages evolving and could be followed. 5. Retroperitoneal lymph nodes are similar not changed since 11/2016. Eduard Pillai MD Last Impressions Chest X-Ray 04/14/17 0600 Signed Impressions: Service Date/Time: Friday, April 14, 2017 03:10 - CONCLUSION: No significant interval change. Persistent right greater than left lung opacity. Jorden Mckeon MD Abdomen Ultrasound 04/12/17 0000 Signed Impressions: Service Date/Time: April 09:23 - CONCLUSION: 1. 8 cm cystic mass posterior to the right kidney which may reflect abscess or hematoma. This would be accessible to percutaneous biopsy. 2. Chronic pancreatitis 3. Mild ascites 1. Theo Sanabria MD Head CT 04/10/17 0000 Signed Impressions: Service Date/Time: Monday, April 10, 2017 09:20 - CONCLUSION: Unremarkable study. Eduard Pillai MD Abdomen/Pelvis CT 04/10/17 0000 Signed Impressions: Service Date/Time: Monday, April 10, 2017 09:20 - CONCLUSION: 1. The right lung base consolidation not present previously characteristic of pneumonia possibility of aspiration should be entertained in the appropriate clinical setting. 2. Bladder stone. 3. The previously seen right perinephric well- defined hemorrhage has not significantly changed and the patient has undergone embolization since that time. 4. The fluid collection which is well defined within the psoas muscle has increased in size slightly may represent retroperitoneal hemorrhages evolving and could be followed. 5. Retroperitoneal lymph nodes are similar not changed since 11/2016. Eduard Pillai MD Last Impressions Head CT 04/10/17 0000 Signed Impressions: Service Date/Time: Monday, April 10, 2017 09:20 - CONCLUSION: Unremarkable study. Eduard Pillai MD Chest X-Ray 04/10/17 0000 Signed Impressions: Service Date/Time: Monday, April 10, 2017 09:02 - CONCLUSION: 1. Diffuse infiltrates involving the right lung consistent with probable pneumonia. 2. Cardiomegaly. Storm Weiner MD Abdomen/Pelvis CT 04/10/17 0000 Signed Impressions: Service Date/Time: Monday, April 10, 2017 09:20 - CONCLUSION: 1. The right lung base consolidation not present previously characteristic of pneumonia possibility of aspiration should be entertained in the appropriate clinical setting. 2. Bladder stone. 3. The previously seen right perinephric well- defined hemorrhage has not significantly changed and the patient has undergone embolization since that time. 4. The fluid collection which is well defined within the psoas muscle has increased in size slightly may represent retroperitoneal hemorrhages evolving and could be followed. 5. Retroperitoneal lymph nodes are similar not changed since 11/2016. Eduard Pillai MD Objective Remarks Infusions: Phenylephrine-60 mcgs Norepinephrine off Amiodarone 0.5mg/hr Vasopressin 0.04u/hr Fentanyl 150 mcgs/hr GENERAL: Critically ill-appearing malnourished, male intubated and sedated SKIN: Warm and dry. HEAD: Atraumatic. Normocephalic. EYES: Pupils equal and round. No scleral icterus. No injection or drainage. ENT: No nasal bleeding or discharge. Mucous membranes pink and dry. NECK: Trachea midline. No JVD. CARDIOVASCULAR: Normal rate, regular rhythm. RESPIRATORY: No accessory muscle use. Clear to auscultation. Breath sounds equal bilaterally. GASTROINTESTINAL: Abdomen soft, non-tender, nondistended. No guarding. MUSCULOSKELETAL: Extremities without clubbing, cyanosis, or edema. No obvious deformities. NEUROLOGICAL: Intubated and sedated RASS -2. Alert and oriented 2 No gross focal/sensory deficits. Not following commands but spontaneously moving extremities x4 Date of Insertion: Apr 10, 2017 Date of Insertion: Apr 10, 2017 Side: Right Location: Internal, Jugular A/P Assessment and Plan This is a 71-year-old debilitated critically ill-appearing male in septic shock with multisystem organ failure. Prognosis is guarded at this time. Plan by systems: Neurologic: Metabolic encephalopathy Neurochecks per ICU protocol Trend ammonia level Fentanyl infusion for sedation for ventilator synchrony, currently at 200 mcgs/ hour Tylenol 650 mg every 6 hours when necessary for fever and/or pain Respiratory: Acute hypoxemic respiratory failure HCAP 04/10/17-emergently intubated a 8.0 ETT 24 cm at the lip Duo nebs every 4 hours when necessary for wheezing Ventilator bundle Sputum culture follow-up results Recently hospitalized with right lower lobe pneumonia on vancomycin and Zosyn and oxacillin which was discontinued 03/18/17 Cardiovascular: History of [place]. vargas on chronic anticoagulation Coronary artery disease status post coronary stents 2, an aortic stent x2 History of CHF History of hypertension Cardiomegaly Septic shock A. fib RVR Patient continues on norepinephrine, phenylephrine, and vasopressin to maintain MAP > 65 Hold Coumadin in the setting of active bleeding -reportedly [facility] patient stopped Coumadin on 02/28/17. INR on admission 1.6 Initial troponin 0.03->0.31 1 EKG sinus bradycardia with first-degree AV block septal WV Vitamin K 10 mg 1 dose IV Continue pravastatin 40 mg/day Last echo 02/03/16 EF 60-65% 04/11 ECHO- EF 60-65% No RWMA, Mod Pulm HTN 04/12 amiodarone bolus with 1:1 conversion , will continue amiodarone infusion 04/14-cardiology consulted. Dr. Barclay following Renal: BPH Hold Flomax in the setting of hypotension Maintain White -- Strict I/Os FEN/GI: Acute kidney injury 2/2 hypotension Chronic kidney disease stage III Perinephric hemorrhage 8.5 cm Possible retroperitoneal hemorrhage Left renal cyst Urolithiasis Elevated BUN possibly secondary to active bleeding Metabolic acidosis Electrolyte derangement Severe protein calorie malnutrition GI bleed Fluid overload Chronic pancreatitis Ascites OGT clamped Patient Hemoccult positive this admission, Hemoccult positive last admission status post panendoscopy with benign findings GI signed off 04/13, plan to reinitiate consult when patient hemodynamically stable for probable panendoscopy Nephrology following. Creatinine 4.1 Monitor BMP Zofran for nausea 04/13 Hemoccult-positive Albumin 1.1 1/3 amylase, lipase WNL Heme/ID: HCAP right lower lobe Septic shock with multiorgan system failure Pleural effusion Bandemia Acute blood loss anemia Thrombocytopenia Urosepsis Patient received Zosyn and vancomycin in the Continue to monitor CBC ID following-. Dr. Haro Antibiotic management per ID 1/2 Blood cultures- strep pneumo 1/2-urine culture-E coli Follow-up sputum cultures /2 Legionella and pneumococcal antigen-negative /2- influenza antigen-negative 04/10 Transfuse 1 unit of packed red blood cells, 04/14 transfuse 2 units of platelets 04/12 platelet count 47-transfuse 1 unit of platelets, maintain platelet count of 50,000, 04/14 Plt count 40 -2 units Plts transfused 04/[address] Sanabria , invasive radiology possible retroperitoneal hemorrhage, images reviewed states possibly an abscess versus retroperitoneal hemorrhage. Continue monitoring closely hemoglobin and hematocrit, declines plan for possible emergent intervention 04/12 US abdomen-chronic pancreatitis, 8 cm cystic mass posterior to right kidney abscess or hematoma, mild ascites Endocrine: Diabetes mellitus Glucose monitoring per ICU protocol, low dose regimen TSH WNL 3.050 MSK: Stage II gluteal/ sacral ulcers Obtain wound care consult-follow up recommendations -- SSI Prophylaxis: GI Prophylaxis Protonix infusion DVT Prophylaxis -- SCDs No Chemical DVT prophylaxis in the setting of severe thrombocytopenia Lines: Right IJ central line, left radial arterial line (04/10/17- 04/13/17) Dispo: level 3 Patient has multisystem organ failure, prognosis is poor. D/W PRIZE FIGHTER at bedside (Brianne), and family/ daughter (Mechelle) , patient was made alternate CODE STATUS intubation and defibrillation only all questions answered. 04/15 Discussion with Mechelle comfort care measures/ventilator withdrawal for tentative for 04/16/2017, at 1700 per family's request. Daughter at bedside, all questions answered Physician Lily Casey MD Apr 16, 2017 14:23
[2017-04-16] MEDS ORDERED: CALCIUM GLUCONATE INJ 2 GM in SODIUM CHLORIDE 0.9% INJ 100 ML IV ONE (15:00)
--- NOTE | 2017-04-16 15:04 | HHI.PR ---
Addendum to Inpatient Note Additional Information progress noted for comfort measures today Ashely Haro MD Apr 16, 2017 15:04
[2017-04-16] MEDS: AZITHROMYCIN INJ 500 MG in SODIUM CHLOR 0.9% 250 ML INJ 250 ML IV SCH (15:06)
[2017-04-16] MEDS ORDERED: HYOSCYAMINE 0.5 MG/ML AMP IV PUSH ONE (16:00)
[2017-04-16] MEDS ORDERED: fentaNYL DRIP 250 ML IV PRN (16:00)
[2017-04-16] MEDS ORDERED: LORazepam 2 MG/ML VIAL IV PUSH ONE ×2 (16:00→16:30)
[2017-04-16] MEDS ORDERED: MORPHINE SULFATE 2 MG/ML INJ IV PUSH PRN (16:15)
[2017-04-16] MEDS ORDERED: HYOSCYAMINE 0.5 MG/ML AMP IV PUSH PRN (16:30)
[2017-04-16] MEDS ORDERED: MORPHINE SULFATE 2 MG/ML INJ IV PUSH ONE (16:30)
[2017-04-16] MEDS ORDERED: LORazepam 2 MG/ML VIAL IV PUSH PRN ×3 (16:30)
[2017-04-16] MEDS ORDERED: FUROSEMIDE 20 MG/2 ML VIAL IV PUSH PRN (16:30)
--- NOTE | 2017-04-16 17:36 | HHI.DS ---
Summary Note Admission Date Apr 10, 2017 at 11:25 Admitting Diagnosis Sepsis, GI bleed Diagnosis at Time of : (1) Nutrition, metabolism, and development symptoms ICD Code: R63.8 - Other symptoms and signs concerning food and fluid intake Diagnosis: Secondary (2) Hypocalcemia ICD Code: E83.51 - Hypocalcemia Diagnosis: Secondary (3) T2DM (type 2 diabetes mellitus) ICD Code: E11.9 - Type 2 diabetes mellitus without complications Diagnosis: Secondary (4) Hyperlipidemia ICD Code: E78.5 - Hyperlipidemia Diagnosis: Secondary (5) Elevated INR ICD Code: R79.1 - Abnormal coagulation profile Diagnosis: Principal (6) Tobacco abuse ICD Code: Z72.0 - Tobacco use Diagnosis: Secondary (7) Acute blood loss anemia ICD Code: D62 - Acute posthemorrhagic anemia Diagnosis: Principal (8) CKD (chronic kidney disease) stage 3, GFR 30-59 ml/min ICD Code: N18.3 - Chronic kidney disease, stage 3 (moderate) Diagnosis: Principal (9) ASUNCION (acute kidney injury) ICD Code: N17.9 - Acute kidney failure, unspecified Diagnosis: Principal (10) Sepsis ICD Code: A41.9 - Sepsis, unspecified organism Diagnosis: Principal Brief History This is a 71-year-old male that presented to the ED for altered mental status. The patient's past medical history is significant for A. fib and the patient is on on chronic anticoagulation therapy with coumadin. The patient's past medical history also includes AAA, anxiety, CAD, CHF, COPD, CKD, DM, anemia presents to the ED . Per EMS report, the patient initially responded to the call for SOB but upon arrival, pt was found to be hypotensive. The family reported altered mental status, upon presentation to the ED the patient is AAOx2 and states that his right side hurts. The patient has not eaten or taken any meds for over 48 hours and then the family reportedly gave all his meds last night at 2100 .He was admitted 02/28-03/20/17 for GI bleed and had panendoscopy that showed no active bleeding but has peptic duodenitis, and underwent IR embolization for perinephric hemorrhage at that time. Pt also had perinephric hematoma s/p IR embolization and had HCAP. Pt was discharge from rehab about 1 week ago inability to ambulate. He does complain of black stool when asked. Laboratory and imaging studies were performed in the ED which showed 12% bandemia, patient previously hospitalized at recent discharge 2016 with right lower lobe pneumonia, and positive Hemoccult 02/2017, as well as this admission. Imaging studies revealed increase in a fluid collection which may have be sales representative facility services of retroperitoneal hemorrhage. The patient's previous hospitalization revealed a spine obtained hemorrhage of the right mid pole kidney 6.5 cm the head increased to 8.[address] of the abdomen and pelvis today reveal no change in size of 8.5 cm in the right midpole of the kidney however there is a fluid collection well-defined in the psoas muscle area. Patient reportedly was hypotensive and received in the ED 2 L of normal saline, as well as Zosyn and vancomycin. Upon entering the patient's room in the ED the patient was noted to have blood pressures mid 90s/50s with a heart rate of 61 O2 saturation on 2 L was approximately 95%. The patient was noted to be lethargic, but easily arousable. Flow was noted to be 61 and the patient is receiving D50 one amp, the patient was noted to have significantly elevated creatinine with the BUN of 52 and currently receiving bolus of IV fluids. History PFSH Past Medical History Hx Anticoagulant Therapy: Yes AAA: Yes (REPAIRED) Arthritis: Yes Asthma: No Atrial Fibrillation: Yes Autoimmune Disease: No Blood Disorders: No Anxiety: No Depression: No Heart Rhythm Problems: Yes (A-fib) Cancer: Yes (left kidney) Cardiac Catheterization: Yes (2 CARDIAC STENTS, 2 AORTA) Cardiovascular Problems: Yes High Cholesterol: Yes Chemotherapy: No Chest Pain: No Congestive Heart Failure: Yes COPD: No Cerebrovascular Accident: No Coronary Artery Disease: Yes Diabetes: Yes Diminished Hearing: No Endocrine: Yes Gastrointestinal Disorders: Yes (BLADDER STONES) GERD: Yes Genitourinary: Yes (deteriorated bladder) Hiatal Hernia: Yes Hypertension: Yes Immune Disorder: No Implanted Vascular Access Dvce: Yes Insomnia: No Kidney Stones: No Musculoskeletal: Yes (CHRONIC BACK PAIN) Neurologic: Yes Psychiatric: No Reproductive: No Respiratory: No Immunizations Current: Yes Migraines: No Myocardial Infarction: Yes Pancreatitis: Yes Radiation Therapy: No Renal Failure: No Seizures: No Sleep Apnea: No Thyroid Disease: No Ulcer: No Past Surgical History Abdominal Aneurysm Repair: Yes Abdominal Surgery: Yes (hernia x3) AICD: No Arteriovenous Shunt: No Body Medical Devices: cardiac stents Cardiac Surgery: Yes (STENTS in upper and lower aorta, stent in heart) Coronary Stent: Yes (X2) Ear Surgery: No Endocrine Surgery: Yes (tonsillectomy) Eye Surgery: No Genitourinary Surgery: Yes (mesh bilateral inguinal) Gynecologic Surgery: No Insulin Pump: No Joint Replacement: No Neurologic Surgery: No Oral Surgery: Yes (CYST REMOVED FROM THROAT) Pacemaker: No Thoracic Surgery: Yes Tonsillectomy: Yes Other Surgery: Yes Social History Alcohol Use: No Tobacco Use: Yes Substance Use: No Allergies-Medications Allergies-Medications (Allergen,Severity, Reaction): Coded Allergies: No Known Allergies (Verified Allergy, Unknown, 03/31/17) Reported Meds & Prescriptions Reported Meds & Active Scripts Active Loperamide (Loperamide HCl) 2 Mg Cap 2 Mg PO DIRECTED PRN 30 Days One capsule after each loose stool. Not to exceed 8 capsules per day. Magnesium Oxide 400 Mg Tab 400 Mg PO DAILY 30 Days Coreg (Carvedilol) 6.25 Mg Tab 6.25 Mg PO Q12HR Pantoprazole (Pantoprazole Sodium) 40 Mg Tab 40 Mg PO DAILY Ferosul (Ferrous Sulfate) 325 Mg Tablet 325 Mg PO DAILY Vitamin D3 (Cholecalciferol) 5,000 Unit Cap 5,000 Units PO DAILY Oyster Shell 250 mg + Vit D Tb (Calcium/Vitamin D) 250 Mg Calcium (625 Mg)-125 Unit Tablet 500 Mg PO Q12HR Rocaltrol (Calcitriol) 0.25 Mcg Cap 0.5 Mcg PO DAILY Reported Losartan (Losartan Potassium) 25 Mg Tab 25 Mg PO DAILY Hydralazine HCl 25 Mg Tablet 10 Mg PO TID Pravastatin 40 Mg Tab 40 Mg PO DAILY ROS Review of Systems Except as stated in HPI: all other systems reviewed are Neg CBC/BMP: 04/16/17 0600 04/16/17 0600 Significant Findings Laboratory Tests Test 04/14/17 05:25 04/14/17 05:30 04/15/17 06:00 04/16/17 06:00 Blood Gas HCO3 21 mmol/L (22-26) Blood Gas Base Excess -4.4 mmol/L (-2-2) Arterial Blood pH 7.28 (7.380-7.420) Arterial Blood Partial Pressure CO2 47 mmHg (38-42) Arterial Blood Partial Pressure O2 135 mmHg (61-120) Arterial Blood Oxygen Content 11.0 Vol % (12.0-20.0) Arterial Blood Methemoglobin 2.6 % (0-2) Blood Gas Hemoglobin 8.1 G/DL (12.0-16.0) White Blood Count 11.4 TH/MM3 (4.0-11.0) 12.3 TH/MM3 (4.0-11.0) 14.5 TH/MM3 (4.0-11.0) Red Blood Count 2.77 MIL/MM3 (4.50-5.90) 2.67 MIL/MM3 (4.50-5.90) 2.89 MIL/MM3 (4.50-5.90) Hemoglobin 8.0 GM/DL (13.0-17.0) 7.8 GM/DL (13.0-17.0) 8.1 GM/DL (13.0-17.0) Hematocrit 23.6 % (39.0-51.0) 23.0 % (39.0-51.0) 25.1 % (39.0-51.0) Red Cell Distribution Width 17.3 % (11.6-17.2) Platelet Count 29 TH/MM3 (150-450) 63 TH/MM3 (150-450) 62 TH/MM3 (150-450) Neutrophils % (Manual) 87 % (16-70) Lymphocytes % 3 % (9-44) Neutrophils # (Manual) 10.5 TH/MM3 (1.8-7.7) Platelet Estimate LOW (NORMAL) Platelet Morphology Comment ENLARGED (NORMAL) Basophilic Stippling MOD (NORMAL) Ovalocytes 1+ (NORMAL) Blood Urea Nitrogen 57 MG/DL (7-18) 63 MG/DL (7-18) 70 MG/DL (7-18) Creatinine 3.68 MG/DL (0.60-1.30) 4.16 MG/DL (0.60-1.30) 4.48 MG/DL (0.60-1.30) Random Glucose 161 MG/DL (74-106) 160 MG/DL (74-106) 150 MG/DL (74-106) Total Protein 4.2 GM/DL (6.4-8.2) 4.5 GM/DL (6.4-8.2) 4.5 GM/DL (6.4-8.2) Calcium Level 5.8 MG/DL (8.5-10.1) 5.8 MG/DL (8.5-10.1) 5.6 MG/DL (8.5-10.1) Phosphorus Level 5.0 MG/DL (2.5-4.9) 5.6 MG/DL (2.5-4.9) Sodium Level 130 MEQ/L (136-145) 130 MEQ/L (136-145) 130 MEQ/L (136-145) Chloride Level 93 MEQ/L (98-107) 93 MEQ/L (98-107) 95 MEQ/L (98-107) Estimat Glomerular Filtration Rate 16 ML/MIN (>89) 14 ML/MIN (>89) 13 ML/MIN (>89) Protein Corrected Calcium 7.1 MG/DL (8.5-10.1) 7.0 MG/DL (8.5-10.1) 6.7 MG/DL (8.5-10.1) Prothrombin Time 13.3 SEC (9.8-11.6) Fibrinogen 144 mg/dL (227-377) Carbon Dioxide Level 19.8 MEQ/L (21.0-32.0) Imaging Last Impressions Chest X-Ray 04/15/17 0600 Signed Impressions: Service Date/Time: Saturday, April 15, 2017 04:16 - CONCLUSION: No significant interval change. Persistent right greater than left pulmonary parenchymal opacity and small bilateral pleural effusions. Jorden Mckeon MD Abdomen Ultrasound 04/12/17 0000 Signed Impressions: Service Date/Time: April 09:23 - CONCLUSION: 1. 8 cm cystic mass posterior to the right kidney which may reflect abscess or hematoma. This would be accessible to percutaneous biopsy. 2. Chronic pancreatitis 3. Mild ascites 1. Theo Sanabria MD Head CT 04/10/17 0000 Signed Impressions: Service Date/Time: Monday, April 10, 2017 09:20 - CONCLUSION: Unremarkable study. Eduard Pillai MD Abdomen/Pelvis CT 04/10/17 0000 Signed Impressions: Service Date/Time: Monday, April 10, 2017 09:20 - CONCLUSION: 1. The right lung base consolidation not present previously characteristic of pneumonia possibility of aspiration should be entertained in the appropriate clinical setting. 2. Bladder stone. 3. The previously seen right perinephric well- defined hemorrhage has not significantly changed and the patient has undergone embolization since that time. 4. The fluid collection which is well defined within the psoas muscle has increased in size slightly may represent retroperitoneal hemorrhages evolving and could be followed. 5. Retroperitoneal lymph nodes are similar not changed since 11/2016. Eduard Pillai MD Last Impressions Chest X-Ray 04/14/17 0600 Signed Impressions: Service Date/Time: Friday, April 14, 2017 03:10 - CONCLUSION: No significant interval change. Persistent right greater than left lung opacity. Jorden Mckeon MD Abdomen Ultrasound 04/12/17 0000 Signed Impressions: Service Date/Time: April 09:23 - CONCLUSION: 1. 8 cm cystic mass posterior to the right kidney which may reflect abscess or hematoma. This would be accessible to percutaneous biopsy. 2. Chronic pancreatitis 3. Mild ascites 1. Theo Sanabria MD Head CT 04/10/17 0000 Signed Impressions: Service Date/Time: Monday, April 10, 2017 09:20 - CONCLUSION: Unremarkable study. Eduard Pillai MD Abdomen/Pelvis CT 04/10/17 0000 Signed Impressions: Service Date/Time: Monday, April 10, 2017 09:20 - CONCLUSION: 1. The right lung base consolidation not present previously characteristic of pneumonia possibility of aspiration should be entertained in the appropriate clinical setting. 2. Bladder stone. 3. The previously seen right perinephric well- defined hemorrhage has not significantly changed and the patient has undergone embolization since that time. 4. The fluid collection which is well defined within the psoas muscle has increased in size slightly may represent retroperitoneal hemorrhages evolving and could be followed. 5. Retroperitoneal lymph nodes are similar not changed since 11/2016. Eduard Pillai MD Last Impressions Head CT 04/10/17 0000 Signed Impressions: Service Date/Time: Monday, April 10, 2017 09:20 - CONCLUSION: Unremarkable study. Eduard Pillai MD Chest X-Ray 04/10/17 0000 Signed Impressions: Service Date/Time: Monday, April 10, 2017 09:02 - CONCLUSION: 1. Diffuse infiltrates involving the right lung consistent with probable pneumonia. 2. Cardiomegaly. Storm Weiner MD Abdomen/Pelvis CT 04/10/17 0000 Signed Impressions: Service Date/Time: Monday, April 10, 2017 09:20 - CONCLUSION: 1. The right lung base consolidation not present previously characteristic of pneumonia possibility of aspiration should be entertained in the appropriate clinical setting. 2. Bladder stone. 3. The previously seen right perinephric well- defined hemorrhage has not significantly changed and the patient has undergone embolization since that time. 4. The fluid collection which is well defined within the psoas muscle has increased in size slightly may represent retroperitoneal hemorrhages evolving and could be followed. 5. Retroperitoneal lymph nodes are similar not changed since 11/2016. Eduard Pillai MD Hospital Course 04/11: Afebrile .on arrival to the ICU the patient was emergently intubated , secondary to unresponsiveness, and required multiple pressors continues only Levophed,phenylephrine and vasopressin infusions. Patient continues on sodium bicarbonate infusion, with severe metabolic acidosis. Hemoglobin stabilize after 1 unit of PRBC's. Persistent bandemia, cultures revealed gram-positive cocci. ID consulted. 04/12: Afebrile. Last evening, the patient began to have episodes of sinus bradycardia requiring increasing doses of norepinephrine throughout the night currently at 20 mcgs, unable to be transported for CT of the abdomen and pelvis. The patient continues on multiple pressors at this time with continued metabolic acidosis. Microbiology results revealed urine gram-negative rods and gram-positive cocci bacteremia patient on broad-spectrum antibiotics ID has been consulted and awaiting recommendations. Patient's renal and hepatic function continues to decline. Ultrasound of abdomen ordered this a.m., 2/2 hemodynamic instability patient unable to have repeat CT scan of abdomen and pelvis last evening. Suitable electrolyte derangements early this a.m. currently being repleted. The patient went into A. fib RVR with a heart rate of 150, was bolused with amiodarone and currently on amiodarone infusion. 04/13: Afebrile. Metabolic acidosis resolved. The patient continues to be hyponatremic will continue to monitor, with electrolyte derangements. Phenylephrine has been discontinued. The patient continues on Neosynephrine and vasopressin. NG tube has been clamped minimal output overnight approximately 50 cc of bilious secretions. GI has signed off because of the patient's hemodynamic instability will like to perform invasive procedures panendoscopy when patient becomes hemodynamically stable. 04/14: Afebrile. Throughout the night the patient continued to go into A. fib RVR resulting in resumption of amiodarone infusion. The patient also went into episodes of ventricular tachycardia. The patient continues on Deven-Synephrine and vasopressin for vasopressor support. The patient has become severely thrombocytopenic and received 2 units of platelets. The patient continues to have electrolyte derangements which are being repleted. Discussion with the patient's daughter Mechelle, with her 2 brothers telephonically, she informed me that they requested alternate CODE STATUS. Intubation and shocks only. Further discussion elicited that they would like perhaps ventilator withdrawal/comfort care measures instituted tentatively tomorrow or Sunday04/16/2017. Patient remains oliguric, nephrology following. 04/15: Patient remains oliguric. The patient continues on multiple vasopressors to include phenylephrine, vasopressin and amiodarone for rate control. No change in clinical status at this time. The patient remains thrombocytopenic platelet count 63. Discussion with family today plan for institution of comfort care measures last ventilator withdrawal tentatively Sunday04/16/2017 in the evening. 04/16: No change in status overnight. Patient continues on multiple pressors , has electrolyte derangements and continues on amiodarone infusion. Plan for comfort care measures/ventilator withdrawal this afternoon. With family at bedside, the patient at 1725. Lily Arroyo MD Apr 16, 2017 17:36
[2017-04-16] MEDS ORDERED: MORPHINE SULFATE 2 MG/ML INJ IV PUSH SCH (20:00)
[2017-04-16] MEDS ORDERED: LORazepam 2 MG/ML VIAL IV PUSH SCH (20:00)
== END 2017-04-16 17:25 | disposition expired | DRG 870 ==
LOC: NEPC 08:33 → NEDA 11:25 → HIME 13:25
PROVIDERS: ADMIT Internal Medicine Critical Care Medicine; ATTEND Internal Medicine Critical Care Medicine
PROC: 5A1955Z Respiratory Ventilation, Greater than 96 Consecutive Hours (ICD-10-PCS; principal; 2017-04-10)
PROC: 03HY32Z Insertion of Monitoring Device into Upper Artery, Percutaneous Approach (ICD-10-PCS; 2017-04-10)
PROC: 0BH17EZ Insertion of Endotracheal Airway into Trachea, Via Natural or Artificial Opening (ICD-10-PCS; 2017-04-10)
PROC: 05HM33Z Insertion of Infusion Device into Right Internal Jugular Vein, Percutaneous Approach (ICD-10-PCS; 2017-04-10)
PROC: 4A133B1 Monitoring of Arterial Pressure, Peripheral, Percutaneous Approach (ICD-10-PCS; 2017-04-10)
PROC: 4A133J1 Monitoring of Arterial Pulse, Peripheral, Percutaneous Approach (ICD-10-PCS; 2017-04-10)
PROC: 30233K1 Transfusion of Nonautologous Frozen Plasma into Peripheral Vein, Percutaneous Approach (ICD-10-PCS; 2017-04-10)
PROC: 0T2BX0Z Change Drainage Device in Bladder, External Approach (ICD-10-PCS; 2017-04-10)
PROC: 6A550Z2 Pheresis of Platelets, Single (ICD-10-PCS; 2017-04-12)
PROC: 30233N1 Transfusion of Nonautologous Red Blood Cells into Peripheral Vein, Percutaneous Approach (ICD-10-PCS; 2017-04-13)
DX: A40.3 Sepsis due to Streptococcus pneumoniae (principal); J96.01 Acute respiratory failure with hypoxia; N17.0 Acute kidney failure with tubular necrosis; K72.00 Acute and subacute hepatic failure without coma; E43 Unspecified severe protein-calorie malnutrition; R65.21 Severe sepsis with septic shock; R57.8 Other shock; J18.9 Pneumonia, unspecified organism; I47.2 Ventricular tachycardia; G93.41 Metabolic encephalopathy; N18.3 Chronic kidney disease, stage 3 (moderate); I13.0 Hypertensive heart and chronic kidney disease with heart failure and stage 1 through stage 4 chronic kidney disease, or unspecified chronic kidney disease; J44.0 Chronic obstructive pulmonary disease with (acute) lower respiratory infection; E87.2 Acidosis; R18.8 Other ascites; D62 Acute posthemorrhagic anemia; E87.1 Hypo-osmolality and hyponatremia; N39.0 Urinary tract infection, site not specified; K86.1 Other chronic pancreatitis; N13.8 Other obstructive and reflux uropathy; I50.9 Heart failure, unspecified; I48.0 Paroxysmal atrial fibrillation; E11.22 Type 2 diabetes mellitus with diabetic chronic kidney disease; I27.20 Pulmonary hypertension, unspecified; E83.42 Hypomagnesemia; I07.1 Rheumatic tricuspid insufficiency; I71.4 Abdominal aortic aneurysm, without rupture; I25.10 Atherosclerotic heart disease of native coronary artery without angina pectoris; F41.9 Anxiety disorder, unspecified; M19.90 Unspecified osteoarthritis, unspecified site; E78.5 Hyperlipidemia, unspecified; K21.9 Gastro-esophageal reflux disease without esophagitis; I25.2 Old myocardial infarction; Z72.0 Tobacco use; M54.5 Low back pain; G89.29 Other chronic pain; K44.9 Diaphragmatic hernia without obstruction or gangrene; R00.1 Bradycardia, unspecified; I44.0 Atrioventricular block, first degree; E83.51 Hypocalcemia; E87.6 Hypokalemia; I37.1 Nonrheumatic pulmonary valve insufficiency; Z86.010 Personal history of colon polyps; Z86.711 Personal history of pulmonary embolism; Z95.5 Presence of coronary angioplasty implant and graft; Z79.01 Long term (current) use of anticoagulants; B96.20 Unspecified Escherichia coli [E. coli] as the cause of diseases classified elsewhere; Y95 Nosocomial condition; N21.0 Calculus in bladder; Z51.5 Encounter for palliative care; Z57.4 Occupational exposure to toxic agents in agriculture; N28.1 Cyst of kidney, acquired; Z87.440 Personal history of urinary (tract) infections; R19.7 Diarrhea, unspecified; N40.1 Benign prostatic hyperplasia with lower urinary tract symptoms; D69.6 Thrombocytopenia, unspecified; E86.0 Dehydration
CPT/HCPCS: 31500; 36430; 36556; 36600; 51702; 70450; 71045; 74176; 76700; 76937; 80048; 80053; 80202; 81001; 82140; 82150; 82272; 82533; 82550; 82805; 82948; 83605; 83690; 83735; 83880; 84100; 84132; 84155; 84439; 84443; 84481; 84484; 85007; 85014; 85018; 85027; 85384; 85610; 85730; 86850; 86900; 86901; 86920; 86927; 87040; 87077; 87086; 87186; 87205; 87449; 87493; 87641; 87804; 93005; 93306; 93308; 94002; 94003; 94640; 94664; 96374; C9113; J0171; J0282; J0330; J0456; J0610; J0696; J1720; J1815; J1817; J1956; J1980; J2060; J2250; J2270; J2370; J2543; J3010; J3370; J3430; J3475; J3480; J7030; J7040; J7050; J7060; J7070; P9016; P9017; P9035; P9047